=== PATIENT | female | born 1940 | race Caucasian/White ===

== ENCOUNTER 2020-07-19 04:22 | Outpatient (REF) | payer MEDICARE, SELFPAY ==
[2020-07-19 07:53] LABS: Hematocrit 36.1 % (37-47); Hemoglobin 11.7 g/dl (12.0-16.0); Mean Corpuscular HGB Conc 32.4 g/dl (31.0-35.0); Mean Corpuscular Hemoglobin 29.8 pg (27.0-33.0); Mean Corpuscular Volume 92.1 fL (80-98); Mean Platelet Volume 9.9 fL (9.4-12.3); Platelet Count 172 X10*3/uL (160-400); Red Blood Count 3.92 X10*6/uL (4.20-5.50); Red Cell Distribution Width 14.5 % (11.0-16.0); White Blood Count 4.8 X10*3/uL (4.8-10.8)
[2020-07-19 08:16] LABS: Anion Gap 10 (12-20); Blood Urea Nitrogen 19 mg/dL (9-16); Calcium 8.9 mg/dL (8.4-10.2); Carbon Dioxide 28 mmol/L (22-29); Chloride 107 mmol/L (96-108); Estimated Glomerular Filt Rate > 60; Glucose Random 72 mg/dL (60-115); Potassium 4.7 mmol/l (3.3-5.1); Sodium 140 mmol/L (135-145)
== END 2020-07-19 04:23 | disposition home or self-care (01) ==
LOC: HO.MMNH3L 04:22
PROVIDERS: Visit Provider Family Medicine
DX: A15.0 Tuberculosis of lung (principal); J96.01 Acute respiratory failure with hypoxia
CPT/HCPCS: 36415; 80048; 85027

== ENCOUNTER 2020-08-15 13:00 | Outpatient (REF) | payer MEDICARE, SELFPAY | END 2020-08-15 13:01 | LOC: HO.LNP 13:00 | PROVIDERS: Visit Provider Family Medicine | DX: Z20.828 Contact with and (suspected) exposure to other viral communicable diseases (principal) | CPT/HCPCS: U0003 ==

== ENCOUNTER 2020-09-18 07:29 | Outpatient (REF) | payer MEDICARE, SELFPAY ==
[2020-09-18 07:42] LABS: Hematocrit 36.4 % (37-47); Hemoglobin 12.1 g/dl (12.0-16.0); Mean Corpuscular HGB Conc 33.2 g/dl (31.0-35.0); Mean Corpuscular Hemoglobin 30.1 pg (27.0-33.0); Mean Corpuscular Volume 90.5 fL (80-98); Mean Platelet Volume 10.2 fL (9.4-12.3); Platelet Count 171 X10*3/uL (160-400); Red Blood Count 4.02 X10*6/uL (4.20-5.50); Red Cell Distribution Width 13.9 % (11.0-16.0); White Blood Count 4.7 X10*3/uL (4.8-10.8)
[2020-09-18 08:06] LABS: Anion Gap 12 (12-20); Blood Urea Nitrogen 19 mg/dL (9-16); Calcium 8.6 mg/dL (8.4-10.2); Carbon Dioxide 24 mmol/L (22-29); Chloride 106 mmol/L (96-108); Estimated Glomerular Filt Rate > 60; Glucose Random 76 mg/dL (60-115); Potassium 4.3 mmol/l (3.3-5.1); Sodium 138 mmol/L (135-145)
== END 2020-09-18 07:30 | disposition home or self-care (01) ==
LOC: HO.MMNH3L 07:29
PROVIDERS: Visit Provider Family Medicine
DX: J96.01 Acute respiratory failure with hypoxia (principal); N17.9 Acute kidney failure, unspecified
CPT/HCPCS: 36415; 80048; 85027

== ENCOUNTER 2020-10-19 | Outpatient (REF) | payer MEDICARE, MEDICAID, SELFPAY ==
[2020-10-19 08:13] LABS: Hematocrit 36.5 % (37-47); Hemoglobin 12.1 g/dl (12.0-16.0); Mean Corpuscular HGB Conc 33.2 g/dl (31.0-35.0); Mean Corpuscular Hemoglobin 30.3 pg (27.0-33.0); Mean Corpuscular Volume 91.3 fL (80-98); Mean Platelet Volume 10.1 fL (9.4-12.3); Platelet Count 175 X10*3/uL (160-400); Red Cell Distribution Width 14.2 % (11.0-16.0); White Blood Count 4.6 X10*3/uL (4.8-10.8)
[2020-10-19 08:34] LABS: Anion Gap 13 (12-20); Blood Urea Nitrogen 18 mg/dL (9-16); Calcium 8.8 mg/dL (8.4-10.2); Carbon Dioxide 24 mmol/L (22-29); Chloride 107 mmol/L (96-108); Estimated Glomerular Filt Rate > 60; Glucose Random 72 mg/dL (60-115); Potassium 4.4 mmol/l (3.3-5.1); Sodium 140 mmol/L (135-145)
== END 2020-10-19 00:01 ==
LOC: HO.MMNH3L
PROVIDERS: Visit Provider Family Medicine
DX: J96.01 Acute respiratory failure with hypoxia (principal); N17.9 Acute kidney failure, unspecified
CPT/HCPCS: 36415; 80048; 85027

== ENCOUNTER 2020-11-19 | Outpatient (REF) | payer MEDICARE, MEDICAID, SELFPAY ==
[2020-11-19 08:19] LABS: Hematocrit 36.2 % (37-47); Hemoglobin 11.9 g/dl (12.0-16.0); Mean Corpuscular HGB Conc 32.9 g/dl (31.0-35.0); Mean Corpuscular Hemoglobin 30.3 pg (27.0-33.0); Mean Corpuscular Volume 92.1 fL (80-98); Mean Platelet Volume 10.3 fL (9.4-12.3); Platelet Count 175 X10*3/uL (160-400); Red Blood Count 3.93 X10*6/uL (4.20-5.50); Red Cell Distribution Width 14.1 % (11.0-16.0); White Blood Count 4.6 X10*3/uL (4.8-10.8)
[2020-11-19 08:40] LABS: Anion Gap 11 (12-20); Blood Urea Nitrogen 18 mg/dL (9-16); Calcium 8.5 mg/dL (8.4-10.2); Carbon Dioxide 27 mmol/L (22-29); Chloride 106 mmol/L (96-108); Estimated Glomerular Filt Rate > 60; Glucose Random 68 mg/dL (60-115); Potassium 4.2 mmol/L (3.3-5.1); Sodium 140 mmol/L (135-145)
== END 2020-11-19 00:01 | disposition home or self-care (01) ==
LOC: HO.MMNH3L
PROVIDERS: Visit Provider Family Medicine
DX: J96.01 Acute respiratory failure with hypoxia (principal); H17.9 Unspecified corneal scar and opacity
CPT/HCPCS: 36415; 80048; 85027

== ENCOUNTER 2020-12-17 09:52 | Outpatient (REF) | payer MEDICARE, MEDICAID, SELFPAY ==
[2020-12-17 07:03] LABS: Hematocrit 36.8 % (37-47); Hemoglobin 12.3 g/dl (12.0-16.0); Mean Corpuscular HGB Conc 33.4 g/dl (31.0-35.0); Mean Corpuscular Hemoglobin 30.5 pg (27.0-33.0); Mean Corpuscular Volume 91.3 fL (80-98); Platelet Count 177 X10*3/uL (160-400); Red Blood Count 4.03 X10*6/uL (4.20-5.50); Red Cell Distribution Width 13.2 % (11.0-16.0); White Blood Count 4.3 X10*3/uL (4.8-10.8)
[2020-12-17 07:20] LABS: Blood Urea Nitrogen 18 mg/dL (9-16); Calcium 8.6 mg/dL (8.4-10.2); Estimated Glomerular Filt Rate > 60; Glucose Random 75 mg/dL (60-115)
[2020-12-17 07:54] LABS: Anion Gap 10 (12-20); Carbon Dioxide 27 mmol/L (22-29); Chloride 108 mmol/L (96-108); Potassium 4.6 mmol/L (3.3-5.1); Sodium 140 mmol/L (135-145)
== END 2020-12-17 09:53 ==
LOC: HO.MMNH3L 09:52
PROVIDERS: Visit Provider Family Medicine
DX: J96.01 Acute respiratory failure with hypoxia (principal); N17.9 Acute kidney failure, unspecified
CPT/HCPCS: 36415; 80048; 85027

== ENCOUNTER 2021-01-17 06:39 | Outpatient (REF) | payer MEDICARE, SELFPAY ==
[2021-01-17 07:23] LABS: Hemoglobin 12.7 g/dl (12.0-16.0); Mean Corpuscular HGB Conc 33.4 g/dl (31.0-35.0); Mean Corpuscular Hemoglobin 30.5 pg (27.0-33.0); Mean Corpuscular Volume 91.3 fL (80-98); Mean Platelet Volume 10.2 fL (9.4-12.3); Platelet Count 197 X10*3/uL (160-400); Red Blood Count 4.16 X10*6/uL (4.20-5.50); Red Cell Distribution Width 13.2 % (11.0-16.0)
[2021-01-17 07:29] LABS: Anion Gap 11 (12-20); Blood Urea Nitrogen 18 mg/dL (9-16); Calcium 8.7 mg/dL (8.4-10.2); Carbon Dioxide 25 mmol/L (22-29); Chloride 108 mmol/L (96-108); Estimated Glomerular Filt Rate > 60; Glucose Random 88 mg/dL (60-115); Potassium 4.2 mmol/L (3.3-5.1); Sodium 140 mmol/L (135-145)
== END 2021-01-17 06:40 | disposition home or self-care (01) ==
LOC: HO.MMNH3L 06:39
PROVIDERS: Visit Provider Family Medicine
DX: I10 Essential (primary) hypertension (principal)
CPT/HCPCS: 36415; 80048; 85027

== ENCOUNTER 2021-02-06 06:39 | Outpatient (REF) | payer MEDICARE, MEDICAID, SELFPAY ==
[2021-02-06 07:25] LABS: Cholesterol 230 mg/dL
== END 2021-02-06 06:40 | disposition home or self-care (01) ==
LOC: HO.MMNH3L 06:39
PROVIDERS: Visit Provider Family Medicine
DX: E03.9 Hypothyroidism, unspecified (principal); J18.9 Pneumonia, unspecified organism; R09.02 Hypoxemia
CPT/HCPCS: 36415; 82465

== ENCOUNTER 2021-02-16 11:05 | Outpatient (REF) | payer MEDICARE, SELFPAY ==
[2021-02-16 08:36] LABS: Hematocrit 37.6 % (37-47); Hemoglobin 12.4 g/dl (12.0-16.0); Mean Corpuscular Hemoglobin 30.2 pg (27.0-33.0); Mean Corpuscular Volume 91.7 fL (80-98); Mean Platelet Volume 10.2 fL (9.4-12.3); Platelet Count 188 X10*3/uL (160-400); Red Cell Distribution Width 13.3 % (11.0-16.0); White Blood Count 5.8 X10*3/uL (4.8-10.8)
[2021-02-16 09:09] LABS: Anion Gap 10 (12-20); Blood Urea Nitrogen 17 mg/dL (9-16); Calcium 8.8 mg/dL (8.4-10.2); Carbon Dioxide 28 mmol/L (22-29); Chloride 106 mmol/L (96-108); Estimated Glomerular Filt Rate > 60; Glucose Random 73 mg/dL (60-115); Sodium 140 mmol/L (135-145)
== END 2021-02-16 11:06 | disposition home or self-care (01) ==
LOC: HO.MMNH3L 11:05
PROVIDERS: Visit Provider Family Medicine
DX: A15.0 Tuberculosis of lung (principal)
CPT/HCPCS: 36415; 80048; 85027

== ENCOUNTER 2021-02-20 10:23 | Outpatient (REF) | payer MEDICARE, MEDICAID, SELFPAY ==
[2021-02-20 08:42] LABS: Free T4 (Free Thyroxine) 0.84 ng/dL (0.71-1.85); Thyroid Stimulating Hormone 0.47 uIU/mL (0.32-4.0)
== END 2021-02-20 10:24 | disposition home or self-care (01) ==
LOC: HO.MMNH3L 10:23
PROVIDERS: Visit Provider Family Medicine
DX: J44.9 Chronic obstructive pulmonary disease, unspecified (principal); E03.9 Hypothyroidism, unspecified; F33.9 Major depressive disorder, recurrent, unspecified
CPT/HCPCS: 36415; 84439; 84443

== ENCOUNTER 2021-03-19 05:00 | Outpatient (REF) | payer MEDICARE, MEDICAID, SELFPAY ==
[2021-03-19 07:44] LABS: Hematocrit 37.2 % (37-47); Hemoglobin 12.4 g/dl (12.0-16.0); Mean Corpuscular HGB Conc 33.3 g/dl (31.0-35.0); Mean Corpuscular Hemoglobin 30.3 pg (27.0-33.0); Mean Platelet Volume 10.2 fL (9.4-12.3); Platelet Count 175 X10*3/uL (160-400); Red Blood Count 4.09 X10*6/uL (4.20-5.50); Red Cell Distribution Width 14.1 % (11.0-16.0); White Blood Count 4.8 X10*3/uL (4.8-10.8)
[2021-03-19 08:13] LABS: Anion Gap 11 (12-20); Blood Urea Nitrogen 16 mg/dL (9-16); Calcium 8.5 mg/dL (8.4-10.2); Carbon Dioxide 24 mmol/L (22-29); Chloride 107 mmol/L (96-108); Estimated Glomerular Filt Rate > 60; Glucose Random 78 mg/dL (60-115); Potassium 4.2 mmol/L (3.3-5.1); Sodium 138 mmol/L (135-145)
== END 2021-03-19 05:01 | disposition home or self-care (01) ==
LOC: HO.MMNH3L 05:00
PROVIDERS: Visit Provider Family Medicine
DX: A15.0 Tuberculosis of lung (principal); J96.01 Acute respiratory failure with hypoxia
CPT/HCPCS: 36415; 80048; 85027

== ENCOUNTER 2021-04-18 07:21 | Outpatient (REF) | payer MEDICARE, MEDICAID, SELFPAY ==
[2021-04-18 07:42] LABS: Hematocrit 37.7 % (37-47); Hemoglobin 12.4 g/dl (12.0-16.0); Mean Corpuscular HGB Conc 32.9 g/dl (31.0-35.0); Mean Corpuscular Hemoglobin 30.2 pg (27.0-33.0); Mean Corpuscular Volume 91.7 fL (80-98); Platelet Count 186 X10*3/uL (160-400); Red Blood Count 4.11 X10*6/uL (4.20-5.50); Red Cell Distribution Width 14.1 % (11.0-16.0); White Blood Count 5.3 X10*3/uL (4.8-10.8)
[2021-04-18 08:09] LABS: Anion Gap 11 (12-20); Blood Urea Nitrogen 20 mg/dL (9-16); Carbon Dioxide 23 mmol/L (22-29); Chloride 109 mmol/L (96-108); Estimated Glomerular Filt Rate > 60; Glucose Random 81 mg/dL (60-115); Potassium 4.4 mmol/L (3.3-5.1); Sodium 139 mmol/L (135-145)
== END 2021-04-18 07:22 | disposition home or self-care (01) ==
LOC: HO.MMNH3L 07:21
PROVIDERS: Visit Provider Family Medicine
DX: A15.0 Tuberculosis of lung (principal); J96.01 Acute respiratory failure with hypoxia
CPT/HCPCS: 36415; 80048; 85027

== ENCOUNTER 2021-05-19 12:03 | Outpatient (REF) | payer MEDICARE, MEDICAID, SELFPAY ==
[2021-05-19 07:11] LABS: Hemoglobin 12.8 g/dl (12.0-16.0); Mean Corpuscular HGB Conc 32.8 g/dl (31.0-35.0); Mean Corpuscular Hemoglobin 29.9 pg (27.0-33.0); Mean Corpuscular Volume 91.1 fL (80-98); Platelet Count 200 X10*3/uL (160-400); Red Blood Count 4.28 X10*6/uL (4.20-5.50); Red Cell Distribution Width 13.4 % (11.0-16.0); White Blood Count 5.3 X10*3/uL (4.8-10.8)
[2021-05-19 07:34] LABS: Anion Gap 13 (12-20); Blood Urea Nitrogen 15 mg/dL (9-16); Calcium 8.8 mg/dL (8.4-10.2); Carbon Dioxide 22 mmol/L (22-29); Chloride 108 mmol/L (96-108); Estimated Glomerular Filt Rate > 60; Glucose Random 78 mg/dL (60-115); Potassium 4.2 mmol/L (3.3-5.1); Sodium 139 mmol/L (135-145)
== END 2021-05-19 12:04 | disposition home or self-care (01) ==
LOC: HO.MMNH3L 12:03
PROVIDERS: Visit Provider Family Medicine
DX: A15.0 Tuberculosis of lung (principal); J96.01 Acute respiratory failure with hypoxia
CPT/HCPCS: 36415; 80048; 85027

== ENCOUNTER 2021-06-20 05:00 | Outpatient (REF) | payer MEDICARE, MEDICAID, SELFPAY ==
[2021-06-20 07:18] LABS: Hematocrit 38.2 % (37-47); Hemoglobin 12.7 g/dl (12.0-16.0); Mean Corpuscular HGB Conc 33.2 g/dl (31.0-35.0); Mean Corpuscular Hemoglobin 30.2 pg (27.0-33.0); Mean Corpuscular Volume 90.7 fL (80-98); Mean Platelet Volume 10.3 fL (9.4-12.3); Platelet Count 192 X10*3/uL (160-400); Red Blood Count 4.21 X10*6/uL (4.20-5.50); Red Cell Distribution Width 13.4 % (11.0-16.0); White Blood Count 5.4 X10*3/uL (4.8-10.8)
[2021-06-20 08:08] LABS: Anion Gap 11 (12-20); Blood Urea Nitrogen 19 mg/dL (9-16); Calcium 8.6 mg/dL (8.4-10.2); Carbon Dioxide 24 mmol/L (22-29); Chloride 109 mmol/L (96-108); Estimated Glomerular Filt Rate > 60; Glucose Random 84 mg/dL (60-115); Potassium 4.1 mmol/L (3.3-5.1); Sodium 140 mmol/L (135-145)
== END 2021-06-20 05:01 ==
LOC: HO.MMNH3L 05:00
PROVIDERS: Visit Provider Family Medicine
DX: A15.0 Tuberculosis of lung (principal); J96.01 Acute respiratory failure with hypoxia
CPT/HCPCS: 36415; 80048; 85027

== ENCOUNTER 2021-07-19 07:21 | Outpatient (REF) | payer MEDICARE, MEDICAID, SELFPAY ==
[2021-07-19 07:50] LABS: Hematocrit 41.4 % (37-47); Hemoglobin 13.4 g/dl (12.0-16.0); Mean Corpuscular HGB Conc 32.4 g/dl (31.0-35.0); Mean Corpuscular Hemoglobin 29.8 pg (27.0-33.0); Mean Platelet Volume 10.5 fL (9.4-12.3); Platelet Count 188 X10*3/uL (160-400); Red Cell Distribution Width 13.9 % (11.0-16.0); White Blood Count 7.1 X10*3/uL (4.8-10.8)
[2021-07-19 08:24] LABS: Anion Gap 9 (12-20); Blood Urea Nitrogen 19 mg/dL (9-16); Carbon Dioxide 28 mmol/L (22-29); Chloride 108 mmol/L (96-108); Estimated Glomerular Filt Rate 52; Glucose Random 86 mg/dL (60-115); Potassium 4.7 mmol/L (3.3-5.1); Sodium 140 mmol/L (135-145)
== END 2021-07-19 07:22 | disposition home or self-care (01) ==
LOC: HO.MMNH3L 07:21
PROVIDERS: Visit Provider Family Medicine
DX: A15.0 Tuberculosis of lung (principal); J96.01 Acute respiratory failure with hypoxia
CPT/HCPCS: 36415; 80048; 85027

== ENCOUNTER 2021-08-18 | Outpatient (REF) | payer MEDICARE, SELFPAY ==
[2021-08-18 08:04] LABS: Hematocrit 39.9 % (37.0-47.0); Hemoglobin 13.2 g/dl (12.0-16.0); Mean Corpuscular HGB Conc 33.1 g/dl (31.0-35.0); Mean Corpuscular Hemoglobin 30.3 pg (27.0-33.0); Mean Corpuscular Volume 91.5 fL (80.0-98.0); Mean Platelet Volume 10.3 fL (9.4-12.3); Platelet Count 199 X10*3/uL (160-400); Red Blood Count 4.36 X10*6/uL (4.20-5.50); Red Cell Distribution Width 14.1 % (11.0-16.0); White Blood Count 5.7 X10*3/uL (4.8-10.8)
[2021-08-18 08:36] LABS: Anion Gap 10 (12-20); Blood Urea Nitrogen 19 mg/dL (9-16); Calcium 8.4 mg/dL (8.4-10.2); Carbon Dioxide 25 mmol/L (22-29); Chloride 108 mmol/L (96-108); Estimated Glomerular Filt Rate > 60; Glucose Random 80 mg/dL (60-115); Potassium 4.4 mmol/L (3.3-5.1); Sodium 139 mmol/L (135-145)
== END 2021-08-18 00:01 | disposition home or self-care (01) ==
LOC: HO.MMNH3L
PROVIDERS: Visit Provider Family Medicine
DX: A15.0 Tuberculosis of lung (principal); J96.01 Acute respiratory failure with hypoxia
CPT/HCPCS: 36415; 80048; 85027

== ENCOUNTER 2021-09-18 00:18 | Outpatient (REF) | payer MEDICARE, SELFPAY ==
[2021-09-18 08:00] LABS: Hematocrit 39.8 % (37.0-47.0); Mean Corpuscular HGB Conc 32.7 g/dl (31.0-35.0); Mean Corpuscular Hemoglobin 30.3 pg (27.0-33.0); Mean Corpuscular Volume 92.8 fL (80.0-98.0); Mean Platelet Volume 10.3 fL (9.4-12.3); Platelet Count 179 X10*3/uL (160-400); Red Blood Count 4.29 X10*6/uL (4.20-5.50); Red Cell Distribution Width 14.1 % (11.0-16.0); White Blood Count 4.9 X10*3/uL (4.8-10.8)
[2021-09-18 08:15] LABS: Anion Gap 11 (12-20); Blood Urea Nitrogen 18 mg/dL (9-16); Calcium 8.8 mg/dL (8.4-10.2); Carbon Dioxide 22 mmol/L (22-29); Chloride 112 mmol/L (96-108); Estimated Glomerular Filt Rate > 60; Glucose Random 73 mg/dL (60-115); Potassium 4.1 mmol/L (3.3-5.1); Sodium 141 mmol/L (135-145)
== END 2021-09-18 00:19 | disposition home or self-care (01) ==
LOC: HO.MMNH3L 00:18
PROVIDERS: Visit Provider Family Medicine
DX: A15.0 Tuberculosis of lung (principal); J96.01 Acute respiratory failure with hypoxia
CPT/HCPCS: 36415; 80048; 85027

== ENCOUNTER 2021-10-19 00:24 | Outpatient (REF) | payer MEDICARE, SELFPAY ==
[2021-10-19 07:27] LABS: Hematocrit 39.6 % (37.0-47.0); Mean Corpuscular HGB Conc 32.8 g/dl (31.0-35.0); Mean Corpuscular Hemoglobin 30.4 pg (27.0-33.0); Mean Corpuscular Volume 92.5 fL (80.0-98.0); Mean Platelet Volume 10.3 fL (9.4-12.3); Platelet Count 189 X10*3/uL (160-400); Red Blood Count 4.28 X10*6/uL (4.20-5.50); Red Cell Distribution Width 13.6 % (11.0-16.0); White Blood Count 5.7 X10*3/uL (4.8-10.8)
[2021-10-19 07:54] LABS: Anion Gap 9 (12-20); Blood Urea Nitrogen 17 mg/dL (9-16); Calcium 8.8 mg/dL (8.4-10.2); Carbon Dioxide 27 mmol/L (22-29); Chloride 109 mmol/L (96-108); Estimated Glomerular Filt Rate 53; Glucose Random 87 mg/dL (60-115); Potassium 4.3 mmol/L (3.3-5.1); Sodium 141 mmol/L (135-145)
== END 2021-10-19 00:25 | disposition home or self-care (01) ==
LOC: HO.MMNH3L 00:24
PROVIDERS: Visit Provider Family Medicine
DX: A15.0 Tuberculosis of lung (principal); J96.01 Acute respiratory failure with hypoxia
CPT/HCPCS: 36415; 80048; 85027

== ENCOUNTER 2021-11-20 | Outpatient (REF) | payer MEDICARE, MEDICAID, SELFPAY ==
[2021-11-20 07:32] LABS: Hematocrit 42.1 % (37.0-47.0); Hemoglobin 13.9 g/dl (12.0-16.0); Mean Corpuscular Hemoglobin 30.5 pg (27.0-33.0); Mean Corpuscular Volume 92.5 fL (80.0-98.0); Mean Platelet Volume 10.2 fL (9.4-12.3); Platelet Count 193 X10*3/uL (160-400); Red Blood Count 4.55 X10*6/uL (4.20-5.50); Red Cell Distribution Width 13.3 % (11.0-16.0)
[2021-11-20 08:29] LABS: Anion Gap 12 (12-20); Blood Urea Nitrogen 17 mg/dL (9-16); Calcium 8.8 mg/dL (8.4-10.2); Carbon Dioxide 23 mmol/L (22-29); Chloride 110 mmol/L (96-108); Estimated Glomerular Filt Rate > 60; Glucose Random 76 mg/dL (60-115); Potassium 4.5 mmol/L (3.3-5.1); Sodium 140 mmol/L (135-145)
== END 2021-11-20 00:01 | disposition home or self-care (01) ==
LOC: HO.MMNH3L
PROVIDERS: Visit Provider Family Medicine
DX: A15.0 Tuberculosis of lung (principal); J96.01 Acute respiratory failure with hypoxia
CPT/HCPCS: 36415; 80048; 85027

== ENCOUNTER 2021-12-19 | Outpatient (REF) | payer MEDICARE, SELFPAY ==
[2021-12-19 06:08] LABS: MANUAL DIFF FLAG NO
[2021-12-19 06:12] LABS: Basophils Percent Auto 0.6 % (0-2); Eosinophils Absolute Auto 0.1 X10*3/uL (0.0-0.4); Eosinophils Percent Auto 2.7 % (0-4); Hematocrit 40.7 % (37.0-47.0); Hemoglobin 13.6 g/dl (12.0-16.0); Imm Gran Abs Auto 0.01 X10*3/uL (0.00-0.03); Imm Gran Pct Auto 0.2 % (0.0-0.4); Lymphocytes Absolute Auto 1.7 X10*3/uL (1.2-4.9); Lymphocytes Percent Auto 33.1 % (20-40); Mean Corpuscular HGB Conc 33.4 g/dl (31.0-35.0); Mean Corpuscular Hemoglobin 30.6 pg (27.0-33.0); Mean Corpuscular Volume 91.7 fL (80.0-98.0); Mean Platelet Volume 10.3 fL (9.4-12.3); Monocytes Absolute Auto 0.4 X10*3/uL (0.1-1.2); Monocytes Percent Auto 7.6 % (2-11); Neutrophils Absolute Auto 2.9 x10*3/uL (2.0-8.3); Neutrophils Percent Auto 55.8 % (45-73); Platelet Count 192 X10*3/uL (160-400); Red Blood Count 4.44 X10*6/uL (4.20-5.50); Red Cell Distribution Width 13.7 % (11.0-16.0); White Blood Count 5.1 X10*3/uL (4.8-10.8)
[2021-12-19 06:24] LABS: Anion Gap 11 (12-20); Blood Urea Nitrogen 15 mg/dL (9-16); Calcium 8.8 mg/dL (8.4-10.2); Carbon Dioxide 24 mmol/L (22-29); Chloride 108 mmol/L (96-108); Estimated Glomerular Filt Rate > 60; Glucose Random 84 mg/dL (60-115); Potassium 4.4 mmol/L (3.3-5.1); Sodium 139 mmol/L (135-145)
== END 2021-12-19 00:01 ==
LOC: HO.MMNH3L
PROVIDERS: Visit Provider Family Medicine
DX: A15.0 Tuberculosis of lung (principal); J96.01 Acute respiratory failure with hypoxia
CPT/HCPCS: 36415; 80048; 85025

== ENCOUNTER 2022-01-18 | Outpatient (REF) | payer MEDICARE, SELFPAY ==
[2022-01-18 07:39] LABS: MANUAL DIFF FLAG NO
[2022-01-18 07:47] LABS: Basophils Percent Auto 0.6 % (0-2); Eosinophils Absolute Auto 0.2 X10*3/uL (0.0-0.4); Eosinophils Percent Auto 2.7 % (0-4); Hematocrit 41.3 % (37.0-47.0); Hemoglobin 13.5 g/dl (12.0-16.0); Imm Gran Abs Auto 0.03 X10*3/uL (0.00-0.03); Imm Gran Pct Auto 0.5 % (0.0-0.4); Lymphocytes Absolute Auto 1.6 X10*3/uL (1.2-4.9); Lymphocytes Percent Auto 25.8 % (20-40); Mean Corpuscular HGB Conc 32.7 g/dl (31.0-35.0); Mean Corpuscular Hemoglobin 30.4 pg (27.0-33.0); Mean Platelet Volume 10.4 fL (9.4-12.3); Monocytes Absolute Auto 0.5 X10*3/uL (0.1-1.2); Monocytes Percent Auto 8.4 % (2-11); Neutrophils Absolute Auto 3.8 x10*3/uL (2.0-8.3); Platelet Count 176 X10*3/uL (160-400); Red Blood Count 4.44 X10*6/uL (4.20-5.50); White Blood Count 6.2 X10*3/uL (4.8-10.8)
[2022-01-18 08:12] LABS: Anion Gap 10 (12-20); Blood Urea Nitrogen 17 mg/dL (9-16); Carbon Dioxide 27 mmol/L (22-29); Chloride 108 mmol/L (96-108); Estimated Glomerular Filt Rate > 60; Glucose Random 81 mg/dL (60-115); Potassium 4.6 mmol/L (3.3-5.1); Sodium 140 mmol/L (135-145)
== END 2022-01-18 00:01 | disposition home or self-care (01) ==
LOC: HO.MMNH3L
PROVIDERS: Visit Provider Family Medicine
DX: A15.0 Tuberculosis of lung (principal); J96.01 Acute respiratory failure with hypoxia
CPT/HCPCS: 36415; 80048; 85025

== ENCOUNTER 2022-04-19 | Outpatient (REF) | payer MEDICARE, MEDICAID, SELFPAY ==
[2022-04-19 05:26] LABS: MANUAL DIFF FLAG NO
[2022-04-19 05:30] LABS: Basophils Absolute Auto 0.1 X10*3/uL (0.0-0.2); Eosinophils Absolute Auto 0.2 X10*3/uL (0.0-0.4); Eosinophils Percent Auto 2.6 % (0-4); Hematocrit 41.3 % (37.0-47.0); Imm Gran Abs Auto 0.02 X10*3/uL (0.00-0.03); Imm Gran Pct Auto 0.3 % (0.0-0.4); Lymphocytes Absolute Auto 1.9 X10*3/uL (1.2-4.9); Lymphocytes Percent Auto 32.2 % (20-40); Mean Corpuscular HGB Conc 33.9 g/dl (31.0-35.0); Mean Corpuscular Hemoglobin 31.1 pg (27.0-33.0); Mean Corpuscular Volume 91.8 fL (80.0-98.0); Mean Platelet Volume 10.4 fL (9.4-12.3); Monocytes Absolute Auto 0.5 X10*3/uL (0.1-1.2); Monocytes Percent Auto 8.9 % (2-11); Neutrophils Absolute Auto 3.2 x10*3/uL (2.0-8.3); Platelet Count 194 X10*3/uL (160-400); Red Cell Distribution Width 13.5 % (11.0-16.0); White Blood Count 5.8 X10*3/uL (4.8-10.8)
[2022-04-19 05:59] LABS: Anion Gap 9 (12-20); Blood Urea Nitrogen 18 mg/dL (9-16); Calcium 8.6 mg/dL (8.4-10.2); Carbon Dioxide 24 mmol/L (22-29); Chloride 110 mmol/L (96-108); Estimated Glomerular Filt Rate > 60; Glucose Random 93 mg/dL (60-115); Potassium 4.1 mmol/L (3.3-5.1); Sodium 139 mmol/L (135-145)
== END 2022-04-19 00:01 | disposition home or self-care (01) ==
LOC: HO.MMNH3L
PROVIDERS: Visit Provider Family Medicine
DX: A15.0 Tuberculosis of lung (principal); J96.01 Acute respiratory failure with hypoxia
CPT/HCPCS: 36415; 80048; 85025

== ENCOUNTER 2022-05-14 06:44 | Outpatient (REF) | payer MEDICARE, SELFPAY ==
[2022-05-14 06:31] LABS: MANUAL DIFF FLAG NO
[2022-05-14 06:56] LABS: Basophils Percent Auto 0.6 % (0-2); Eosinophils Absolute Auto 0.2 X10*3/uL (0.0-0.4); Hematocrit 40.2 % (37.0-47.0); Hemoglobin 13.4 g/dl (12.0-16.0); Imm Gran Abs Auto 0.02 X10*3/uL (0.00-0.03); Imm Gran Pct Auto 0.4 % (0.0-0.4); Lymphocytes Absolute Auto 1.8 X10*3/uL (1.2-4.9); Lymphocytes Percent Auto 35.5 % (20-40); Mean Corpuscular HGB Conc 33.3 g/dl (31.0-35.0); Mean Corpuscular Hemoglobin 30.6 pg (27.0-33.0); Mean Corpuscular Volume 91.8 fL (80.0-98.0); Mean Platelet Volume 10.3 fL (9.4-12.3); Monocytes Absolute Auto 0.5 X10*3/uL (0.1-1.2); Monocytes Percent Auto 9.4 % (2-11); Neutrophils Absolute Auto 2.5 x10*3/uL (2.0-8.3); Neutrophils Percent Auto 51.1 % (45-73); Platelet Count 192 X10*3/uL (160-400); Red Blood Count 4.38 X10*6/uL (4.20-5.50); Red Cell Distribution Width 13.6 % (11.0-16.0)
[2022-05-14 07:21] LABS: Anion Gap 12 (12-20); Blood Urea Nitrogen 16 mg/dL (9-16); Calcium 8.4 mg/dL (8.4-10.2); Carbon Dioxide 23 mmol/L (22-29); Chloride 108 mmol/L (96-108); Estimated Glomerular Filt Rate > 60; Glucose Random 80 mg/dL (60-115); Potassium 4.1 mmol/L (3.3-5.1); Sodium 139 mmol/L (135-145)
== END 2022-05-14 06:45 | disposition home or self-care (01) ==
LOC: HO.MMNH3L 06:44
PROVIDERS: Visit Provider Family Medicine
DX: A15.0 Tuberculosis of lung (principal); J96.01 Acute respiratory failure with hypoxia
CPT/HCPCS: 36415; 80048; 85025

== ENCOUNTER 2022-06-19 06:19 | Outpatient (REF) | payer MEDICARE, MEDICAID, SELFPAY ==
[2022-06-19 06:26] LABS: MANUAL DIFF FLAG NO
[2022-06-19 07:03] LABS: Basophils Absolute Auto 0.1 X10*3/uL (0.0-0.2); Eosinophils Absolute Auto 0.1 X10*3/uL (0.0-0.4); Eosinophils Percent Auto 2.2 % (0-4); Hematocrit 40.1 % (37.0-47.0); Hemoglobin 13.5 g/dl (12.0-16.0); Imm Gran Abs Auto 0.02 X10*3/uL (0.00-0.03); Imm Gran Pct Auto 0.4 % (0.0-0.4); Lymphocytes Absolute Auto 1.5 X10*3/uL (1.2-4.9); Lymphocytes Percent Auto 29.4 % (20-40); Mean Corpuscular HGB Conc 33.7 g/dl (31.0-35.0); Mean Corpuscular Hemoglobin 30.8 pg (27.0-33.0); Mean Corpuscular Volume 91.3 fL (80.0-98.0); Mean Platelet Volume 10.2 fL (9.4-12.3); Monocytes Absolute Auto 0.4 X10*3/uL (0.1-1.2); Platelet Count 187 X10*3/uL (160-400); Red Blood Count 4.39 X10*6/uL (4.20-5.50); Red Cell Distribution Width 13.5 % (11.0-16.0)
[2022-06-19 07:52] LABS: Anion Gap 13 (12-20); Blood Urea Nitrogen 18 mg/dL (9-16); Calcium 8.6 mg/dL (8.4-10.2); Carbon Dioxide 24 mmol/L (22-29); Chloride 106 mmol/L (96-108); Estimated Glomerular Filt Rate > 60; Glucose Random 76 mg/dL (60-115); Potassium 4.3 mmol/L (3.3-5.1); Sodium 139 mmol/L (135-145)
== END 2022-06-19 06:20 | disposition home or self-care (01) ==
LOC: HO.MMNH3L 06:19
PROVIDERS: Visit Provider Family Medicine
DX: A15.0 Tuberculosis of lung (principal); J96.01 Acute respiratory failure with hypoxia
CPT/HCPCS: 36415; 80048; 85025

== ENCOUNTER 2022-07-16 07:26 | Outpatient (REF) | payer MEDICARE, SELFPAY ==
[2022-07-16 07:28] LABS: MANUAL DIFF FLAG NO
[2022-07-16 07:33] LABS: Basophils Absolute Auto 0.1 X10*3/uL (0.0-0.2); Eosinophils Absolute Auto 0.1 X10*3/uL (0.0-0.4); Eosinophils Percent Auto 2.8 % (0-4); Hematocrit 42.3 % (37.0-47.0); Hemoglobin 14.1 g/dl (12.0-16.0); Imm Gran Abs Auto 0.03 X10*3/uL (0.00-0.03); Imm Gran Pct Auto 0.6 % (0.0-0.4); Lymphocytes Absolute Auto 1.6 X10*3/uL (1.2-4.9); Lymphocytes Percent Auto 30.5 % (20-40); Mean Corpuscular HGB Conc 33.3 g/dl (31.0-35.0); Mean Corpuscular Hemoglobin 30.9 pg (27.0-33.0); Mean Corpuscular Volume 92.6 fL (80.0-98.0); Mean Platelet Volume 10.4 fL (9.4-12.3); Monocytes Absolute Auto 0.5 X10*3/uL (0.1-1.2); Monocytes Percent Auto 9.8 % (2-11); Neutrophils Absolute Auto 2.8 x10*3/uL (2.0-8.3); Neutrophils Percent Auto 55.3 % (45-73); Platelet Count 192 X10*3/uL (160-400); Red Blood Count 4.57 X10*6/uL (4.20-5.50); Red Cell Distribution Width 13.6 % (11.0-16.0); White Blood Count 5.1 X10*3/uL (4.8-10.8)
[2022-07-16 08:14] LABS: Anion Gap 14 (12-20); Blood Urea Nitrogen 17 mg/dL (9-16); Calcium 8.8 mg/dL (8.4-10.2); Carbon Dioxide 25 mmol/L (22-29); Chloride 107 mmol/L (96-108); Estimated Glomerular Filt Rate > 60; Glucose Random 79 mg/dL (60-115); Potassium 4.8 mmol/L (3.3-5.1); Sodium 141 mmol/L (135-145)
== END 2022-07-16 07:27 | disposition home or self-care (01) ==
LOC: HO.MMNH3L 07:26
PROVIDERS: Visit Provider Family Medicine
DX: A15.0 Tuberculosis of lung (principal); J96.01 Acute respiratory failure with hypoxia
CPT/HCPCS: 36415; 80048; 85025

== ENCOUNTER 2022-08-13 06:14 | Outpatient (REF) | payer MEDICARE, SELFPAY ==
[2022-08-13 06:57] LABS: Hematocrit 40.7 % (37.0-47.0); Hemoglobin 13.7 g/dl (12.0-16.0); Mean Corpuscular HGB Conc 33.7 g/dl (31.0-35.0); Mean Corpuscular Volume 92.1 fL (80.0-98.0); Mean Platelet Volume 10.4 fL (9.4-12.3); Platelet Count 187 X10*3/uL (160-400); Red Blood Count 4.42 X10*6/uL (4.20-5.50); Red Cell Distribution Width 13.2 % (11.0-16.0); White Blood Count 5.5 X10*3/uL (4.8-10.8)
[2022-08-13 07:15] LABS: Anion Gap 14 (12-20); Blood Urea Nitrogen 20 mg/dL (9-16); Calcium 8.6 mg/dL (8.4-10.2); Carbon Dioxide 23 mmol/L (22-29); Chloride 108 mmol/L (96-108); Estimated Glomerular Filt Rate > 60; Glucose Random 89 mg/dL (60-115); Sodium 141 mmol/L (135-145)
== END 2022-08-13 06:15 | disposition home or self-care (01) ==
LOC: HO.MMNH3L 06:14
PROVIDERS: Visit Provider Family Medicine
DX: A15.0 Tuberculosis of lung (principal); J96.01 Acute respiratory failure with hypoxia
CPT/HCPCS: 36415; 80048; 85027

== ENCOUNTER 2022-09-17 07:25 | Outpatient (REF) | payer MEDICARE, MEDICAID, SELFPAY ==
[2022-09-17 07:04] LABS: MANUAL DIFF FLAG NO
[2022-09-17 07:44] LABS: Basophils Absolute Auto 0.1 X10*3/uL (0.0-0.2); Eosinophils Absolute Auto 0.2 X10*3/uL (0.0-0.4); Eosinophils Percent Auto 3.2 % (0-4); Hematocrit 41.2 % (37.0-47.0); Hemoglobin 13.7 g/dl (12.0-16.0); Imm Gran Abs Auto 0.01 X10*3/uL (0.00-0.03); Imm Gran Pct Auto 0.2 % (0.0-0.4); Lymphocytes Absolute Auto 1.8 X10*3/uL (1.2-4.9); Lymphocytes Percent Auto 35.9 % (20-40); Mean Corpuscular HGB Conc 33.3 g/dl (31.0-35.0); Mean Corpuscular Hemoglobin 30.6 pg (27.0-33.0); Mean Platelet Volume 10.3 fL (9.4-12.3); Monocytes Absolute Auto 0.5 X10*3/uL (0.1-1.2); Monocytes Percent Auto 10.9 % (2-11); Neutrophils Absolute Auto 2.4 x10*3/uL (2.0-8.3); Neutrophils Percent Auto 48.8 % (45-73); Platelet Count 177 X10*3/uL (160-400); Red Blood Count 4.48 X10*6/uL (4.20-5.50); Red Cell Distribution Width 13.4 % (11.0-16.0)
[2022-09-17 08:17] LABS: Anion Gap 12 (12-20); Blood Urea Nitrogen 20 mg/dL (9-16); Calcium 8.4 mg/dL (8.4-10.2); Carbon Dioxide 24 mmol/L (22-29); Chloride 110 mmol/L (96-108); Estimated Glomerular Filt Rate 59; Glucose Random 78 mg/dL (60-115); Potassium 4.5 mmol/L (3.3-5.1); Sodium 141 mmol/L (135-145)
== END 2022-09-17 07:26 | disposition home or self-care (01) ==
LOC: HO.MMNH3L 07:25
PROVIDERS: Visit Provider Family Medicine
DX: A15.0 Tuberculosis of lung (principal); J96.01 Acute respiratory failure with hypoxia
CPT/HCPCS: 36415; 80048; 85025

== ENCOUNTER 2022-10-15 06:26 | Outpatient (REF) | payer MEDICARE, MEDICAID, SELFPAY ==
[2022-10-15 06:23] LABS: MANUAL DIFF FLAG NO
[2022-10-15 06:37] LABS: Basophils Absolute Auto 0.1 X10*3/uL (0.0-0.2); Basophils Percent Auto 1.3 % (0-2); Eosinophils Absolute Auto 0.1 X10*3/uL (0.0-0.4); Hematocrit 39.6 % (37.0-47.0); Hemoglobin 13.3 g/dl (12.0-16.0); Imm Gran Abs Auto 0.02 X10*3/uL (0.00-0.03); Imm Gran Pct Auto 0.4 % (0.0-0.4); Lymphocytes Percent Auto 42.1 % (20-40); Mean Corpuscular HGB Conc 33.6 g/dl (31.0-35.0); Mean Corpuscular Hemoglobin 30.6 pg (27.0-33.0); Mean Corpuscular Volume 91.2 fL (80.0-98.0); Mean Platelet Volume 10.2 fL (9.4-12.3); Monocytes Absolute Auto 0.4 X10*3/uL (0.1-1.2); Neutrophils Absolute Auto 2.1 x10*3/uL (2.0-8.3); Neutrophils Percent Auto 44.2 % (45-73); Platelet Count 194 X10*3/uL (160-400); Red Blood Count 4.34 X10*6/uL (4.20-5.50); Red Cell Distribution Width 13.4 % (11.0-16.0); White Blood Count 4.7 X10*3/uL (4.8-10.8)
[2022-10-15 07:17] LABS: Anion Gap 9 (12-20); Blood Urea Nitrogen 18 mg/dL (9-16); Calcium 8.6 mg/dL (8.4-10.2); Carbon Dioxide 25 mmol/L (22-29); Chloride 110 mmol/L (96-108); Estimated Glomerular Filt Rate > 60; Glucose Random 86 mg/dL (60-115); Potassium 4.3 mmol/L (3.3-5.1); Sodium 140 mmol/L (135-145)
== END 2022-10-15 06:27 | disposition home or self-care (01) ==
LOC: HO.MMNH3L 06:26
PROVIDERS: Visit Provider Family Medicine
DX: A15.0 Tuberculosis of lung (principal); J96.01 Acute respiratory failure with hypoxia
CPT/HCPCS: 36415; 80048; 85025

== ENCOUNTER 2022-11-19 07:18 | Outpatient (REF) | payer MEDICARE, MEDICAID, SELFPAY ==
[2022-11-19 06:36] LABS: MANUAL DIFF FLAG NO
[2022-11-19 07:04] LABS: Basophils Percent Auto 0.8 % (0-2); Eosinophils Absolute Auto 0.2 X10*3/uL (0.0-0.4); Eosinophils Percent Auto 3.5 % (0-4); Hematocrit 40.7 % (37.0-47.0); Hemoglobin 13.4 g/dl (12.0-16.0); Imm Gran Abs Auto 0.01 X10*3/uL (0.00-0.03); Imm Gran Pct Auto 0.2 % (0.0-0.4); Lymphocytes Absolute Auto 1.6 X10*3/uL (1.2-4.9); Lymphocytes Percent Auto 32.3 % (20-40); Mean Corpuscular HGB Conc 32.9 g/dl (31.0-35.0); Mean Corpuscular Hemoglobin 29.9 pg (27.0-33.0); Mean Corpuscular Volume 90.8 fL (80.0-98.0); Mean Platelet Volume 10.4 fL (9.4-12.3); Monocytes Absolute Auto 0.5 X10*3/uL (0.1-1.2); Monocytes Percent Auto 9.1 % (2-11); Neutrophils Absolute Auto 2.7 x10*3/uL (2.0-8.3); Neutrophils Percent Auto 54.1 % (45-73); Platelet Count 174 X10*3/uL (160-400); Red Blood Count 4.48 X10*6/uL (4.20-5.50); Red Cell Distribution Width 13.6 % (11.0-16.0); White Blood Count 4.9 X10*3/uL (4.8-10.8)
[2022-11-19 07:29] LABS: Anion Gap 11 (12-20); Blood Urea Nitrogen 19 mg/dL (9-16); Calcium 9.3 mg/dL (8.4-10.2); Carbon Dioxide 25 mmol/L (22-29); Chloride 109 mmol/L (96-108); Estimated Glomerular Filt Rate > 60; Glucose Random 99 mg/dL (60-115); Potassium 3.8 mmol/L (3.3-5.1); Sodium 141 mmol/L (135-145)
== END 2022-11-19 07:19 | disposition home or self-care (01) ==
LOC: HO.MMNH3L 07:18
PROVIDERS: Visit Provider Family Medicine
DX: A15.0 Tuberculosis of lung (principal); J96.01 Acute respiratory failure with hypoxia
CPT/HCPCS: 36415; 80048; 85025

== ENCOUNTER 2022-12-17 06:44 | Outpatient (REF) | payer MEDICARE, MEDICAID, SELFPAY ==
[2022-12-17 06:27] LABS: MANUAL DIFF FLAG NO
[2022-12-17 07:05] LABS: Basophils Percent Auto 0.6 % (0-2); Eosinophils Absolute Auto 0.2 X10*3/uL (0.0-0.4); Hematocrit 39.4 % (37.0-47.0); Hemoglobin 13.1 g/dl (12.0-16.0); Imm Gran Abs Auto 0.01 X10*3/uL (0.00-0.03); Imm Gran Pct Auto 0.2 % (0.0-0.4); Lymphocytes Absolute Auto 1.6 X10*3/uL (1.2-4.9); Lymphocytes Percent Auto 31.2 % (20-40); Mean Corpuscular HGB Conc 33.2 g/dl (31.0-35.0); Mean Corpuscular Hemoglobin 30.2 pg (27.0-33.0); Mean Corpuscular Volume 90.8 fL (80.0-98.0); Mean Platelet Volume 10.4 fL (9.4-12.3); Monocytes Absolute Auto 0.5 X10*3/uL (0.1-1.2); Monocytes Percent Auto 10.5 % (2-11); Neutrophils Absolute Auto 2.7 x10*3/uL (2.0-8.3); Neutrophils Percent Auto 54.5 % (45-73); Platelet Count 188 X10*3/uL (160-400); Red Blood Count 4.34 X10*6/uL (4.20-5.50)
[2022-12-17 07:21] LABS: Anion Gap 9 (12-20); Blood Urea Nitrogen 16 mg/dL (9-16); Calcium 8.3 mg/dL (8.4-10.2); Carbon Dioxide 25 mmol/L (22-29); Chloride 111 mmol/L (96-108); Estimated Glomerular Filt Rate > 60; Glucose Random 74 mg/dL (60-115); Potassium 3.9 mmol/L (3.3-5.1); Sodium 141 mmol/L (135-145)
== END 2022-12-17 06:45 | disposition home or self-care (01) ==
LOC: HO.MMNH3L 06:44
PROVIDERS: Visit Provider Family Medicine
DX: A15.0 Tuberculosis of lung (principal); J96.01 Acute respiratory failure with hypoxia
CPT/HCPCS: 36415; 80048; 85025

== ENCOUNTER 2023-01-14 06:10 | Outpatient (REF) | payer MEDICARE, MEDICAID, SELFPAY ==
[2023-01-14 06:11] LABS: MANUAL DIFF FLAG NO
[2023-01-14 07:00] LABS: Basophils Percent Auto 0.8 % (0-2); Eosinophils Absolute Auto 0.1 X10*3/uL (0.0-0.4); Eosinophils Percent Auto 2.3 % (0-4); Hemoglobin 13.1 g/dl (12.0-16.0); Imm Gran Abs Auto 0.02 X10*3/uL (0.00-0.03); Imm Gran Pct Auto 0.4 % (0.0-0.4); Lymphocytes Absolute Auto 1.7 X10*3/uL (1.2-4.9); Lymphocytes Percent Auto 32.6 % (20-40); Mean Corpuscular HGB Conc 32.8 g/dl (31.0-35.0); Mean Corpuscular Hemoglobin 30.7 pg (27.0-33.0); Mean Corpuscular Volume 93.7 fL (80.0-98.0); Mean Platelet Volume 10.1 fL (9.4-12.3); Monocytes Absolute Auto 0.4 X10*3/uL (0.1-1.2); Neutrophils Percent Auto 55.9 % (45-73); Platelet Count 185 X10*3/uL (160-400); Red Blood Count 4.27 X10*6/uL (4.20-5.50); Red Cell Distribution Width 14.3 % (11.0-16.0); White Blood Count 5.3 X10*3/uL (4.8-10.8)
[2023-01-14 07:38] LABS: Anion Gap 12 (12-20); Blood Urea Nitrogen 18 mg/dL (9-16); Calcium 8.5 mg/dL (8.4-10.2); Carbon Dioxide 24 mmol/L (22-29); Chloride 109 mmol/L (96-108); Estimated Glomerular Filt Rate 59; Glucose Random 80 mg/dL (60-115); Potassium 4.5 mmol/L (3.3-5.1); Sodium 140 mmol/L (135-145)
== END 2023-01-14 06:11 | disposition home or self-care (01) ==
LOC: HO.MMNH3L 06:10
PROVIDERS: Visit Provider Family Medicine
DX: J96.01 Acute respiratory failure with hypoxia (principal); A15.0 Tuberculosis of lung
CPT/HCPCS: 36415; 80048; 85025

== ENCOUNTER 2023-02-11 05:59 | Outpatient (REF) | payer MEDICARE, MEDICAID, SELFPAY ==
[2023-02-11 05:58] LABS: MANUAL DIFF FLAG NO
[2023-02-11 06:47] LABS: Anion Gap 8 (12-20); Blood Urea Nitrogen 14 mg/dL (9-16); Calcium 8.5 mg/dL (8.4-10.2); Carbon Dioxide 26 mmol/L (22-29); Chloride 111 mmol/L (96-108); Estimated Glomerular Filt Rate > 60; Glucose Random 91 mg/dL (60-115); Potassium 4.3 mmol/L (3.3-5.1); Sodium 141 mmol/L (135-145)
[2023-02-11 06:54] LABS: Basophils Percent Auto 0.7 % (0-2); Eosinophils Absolute Auto 0.1 X10*3/uL (0.0-0.4); Eosinophils Percent Auto 1.9 % (0-4); Hematocrit 38.4 % (37.0-47.0); Hemoglobin 12.7 g/dl (12.0-16.0); Imm Gran Abs Auto 0.02 X10*3/uL (0.00-0.03); Imm Gran Pct Auto 0.3 % (0.0-0.4); Lymphocytes Absolute Auto 1.3 X10*3/uL (1.2-4.9); Lymphocytes Percent Auto 22.5 % (20-40); Mean Corpuscular HGB Conc 33.1 g/dl (31.0-35.0); Mean Corpuscular Hemoglobin 30.7 pg (27.0-33.0); Mean Corpuscular Volume 92.8 fL (80.0-98.0); Mean Platelet Volume 10.3 fL (9.4-12.3); Monocytes Absolute Auto 0.5 X10*3/uL (0.1-1.2); Monocytes Percent Auto 7.8 % (2-11); Neutrophils Absolute Auto 3.9 x10*3/uL (2.0-8.3); Neutrophils Percent Auto 66.8 % (45-73); Platelet Count 238 X10*3/uL (160-400); Red Blood Count 4.14 X10*6/uL (4.20-5.50); Red Cell Distribution Width 14.1 % (11.0-16.0); White Blood Count 5.9 X10*3/uL (4.8-10.8)
== END 2023-02-11 06:00 | disposition home or self-care (01) ==
LOC: HO.MMNH3L 05:59
PROVIDERS: Visit Provider Family Medicine
DX: A15.0 Tuberculosis of lung (principal); J96.01 Acute respiratory failure with hypoxia
CPT/HCPCS: 36415; 80048; 85025

== ENCOUNTER 2023-03-18 06:05 | Outpatient (REF) | payer MEDICARE, MEDICAID, SELFPAY ==
[2023-03-18 06:02] LABS: MANUAL DIFF FLAG NO
[2023-03-18 06:50] LABS: Anion Gap 11 (12-20); Blood Urea Nitrogen 17 mg/dL (9-16); Carbon Dioxide 26 mmol/L (22-29); Chloride 110 mmol/L (96-108); Estimated Glomerular Filt Rate > 60; Glucose Random 83 mg/dL (60-115); Potassium 4.7 mmol/L (3.3-5.1); Sodium 142 mmol/L (135-145)
[2023-03-18 06:58] LABS: Basophils Percent Auto 0.8 % (0-2); Eosinophils Absolute Auto 0.1 X10*3/uL (0.0-0.4); Eosinophils Percent Auto 2.7 % (0-4); Hematocrit 42.8 % (37.0-47.0); Hemoglobin 13.9 g/dl (12.0-16.0); Imm Gran Abs Auto 0.01 X10*3/uL (0.00-0.03); Imm Gran Pct Auto 0.2 % (0.0-0.4); Lymphocytes Absolute Auto 1.7 X10*3/uL (1.2-4.9); Lymphocytes Percent Auto 36.7 % (20-40); Mean Corpuscular HGB Conc 32.5 g/dl (31.0-35.0); Mean Corpuscular Hemoglobin 30.2 pg (27.0-33.0); Mean Platelet Volume 10.5 fL (9.4-12.3); Monocytes Absolute Auto 0.4 X10*3/uL (0.1-1.2); Monocytes Percent Auto 9.3 % (2-11); Neutrophils Absolute Auto 2.4 x10*3/uL (2.0-8.3); Neutrophils Percent Auto 50.3 % (45-73); Platelet Count 186 X10*3/uL (160-400); Red Cell Distribution Width 14.3 % (11.0-16.0); White Blood Count 4.7 X10*3/uL (4.8-10.8)
== END 2023-03-18 06:06 | disposition home or self-care (01) ==
LOC: HO.MMNH3L 06:05
PROVIDERS: Visit Provider Family Medicine
DX: A15.0 Tuberculosis of lung (principal); J96.01 Acute respiratory failure with hypoxia
CPT/HCPCS: 36415; 80048; 85025

== ENCOUNTER 2023-04-15 06:22 | Outpatient (REF) | payer MEDICARE, MEDICAID, SELFPAY ==
[2023-04-15 06:13] LABS: MANUAL DIFF FLAG NO
[2023-04-15 06:53] LABS: Basophils Percent Auto 0.3 % (0-2); Eosinophils Absolute Auto 0.1 X10*3/uL (0.0-0.4); Eosinophils Percent Auto 2.3 % (0-4); Hematocrit 39.5 % (37.0-47.0); Hemoglobin 13.2 g/dl (12.0-16.0); Imm Gran Abs Auto 0.01 X10*3/uL (0.00-0.03); Imm Gran Pct Auto 0.2 % (0.0-0.4); Lymphocytes Absolute Auto 1.7 X10*3/uL (1.2-4.9); Lymphocytes Percent Auto 27.7 % (20-40); Mean Corpuscular HGB Conc 33.4 g/dl (31.0-35.0); Mean Corpuscular Hemoglobin 30.6 pg (27.0-33.0); Mean Corpuscular Volume 91.6 fL (80.0-98.0); Monocytes Absolute Auto 0.6 X10*3/uL (0.1-1.2); Monocytes Percent Auto 9.5 % (2-11); Neutrophils Absolute Auto 3.6 x10*3/uL (2.0-8.3); Platelet Count 181 X10*3/uL (160-400); Red Blood Count 4.31 X10*6/uL (4.20-5.50); Red Cell Distribution Width 14.1 % (11.0-16.0)
[2023-04-15 07:06] LABS: Anion Gap 12 (12-20); Blood Urea Nitrogen 19 mg/dL (9-16); Calcium 8.8 mg/dL (8.4-10.2); Carbon Dioxide 24 mmol/L (22-29); Chloride 107 mmol/L (96-108); Estimated Glomerular Filt Rate > 60; Glucose Random 79 mg/dL (60-115); Potassium 3.9 mmol/L (3.3-5.1); Sodium 139 mmol/L (135-145)
== END 2023-04-15 06:23 | disposition home or self-care (01) ==
LOC: HO.MMNH3L 06:22
PROVIDERS: Visit Provider Family Medicine
DX: A15.0 Tuberculosis of lung (principal); J96.01 Acute respiratory failure with hypoxia
CPT/HCPCS: 36415; 80048; 85025

== ENCOUNTER 2023-05-20 05:58 | Outpatient (REF) | payer MEDICARE, MEDICAID, SELFPAY ==
[2023-05-20 05:55] LABS: MANUAL DIFF FLAG NO
[2023-05-20 06:00] LABS: Basophils Absolute Auto 0.1 X10*3/uL (0.0-0.2); Eosinophils Absolute Auto 0.1 X10*3/uL (0.0-0.4); Eosinophils Percent Auto 2.7 % (0-4); Hematocrit 41.2 % (37.0-47.0); Hemoglobin 13.6 g/dl (12.0-16.0); Imm Gran Abs Auto 0.02 X10*3/uL (0.00-0.03); Imm Gran Pct Auto 0.4 % (0.0-0.4); Lymphocytes Absolute Auto 1.6 X10*3/uL (1.2-4.9); Lymphocytes Percent Auto 31.4 % (20-40); Mean Corpuscular Hemoglobin 31.3 pg (27.0-33.0); Mean Corpuscular Volume 94.7 fL (80.0-98.0); Mean Platelet Volume 10.4 fL (9.4-12.3); Monocytes Absolute Auto 0.5 X10*3/uL (0.1-1.2); Monocytes Percent Auto 9.2 % (2-11); Neutrophils Absolute Auto 2.8 x10*3/uL (2.0-8.3); Neutrophils Percent Auto 55.3 % (45-73); Platelet Count 181 X10*3/uL (160-400); Red Blood Count 4.35 X10*6/uL (4.20-5.50); White Blood Count 5.1 X10*3/uL (4.8-10.8)
[2023-05-20 06:34] LABS: Anion Gap 14 (12-20); Blood Urea Nitrogen 19 mg/dL (9-16); Calcium 8.6 mg/dL (8.4-10.2); Carbon Dioxide 20 mmol/L (22-29); Chloride 110 mmol/L (96-108); Estimated Glomerular Filt Rate > 60; Glucose Random 88 mg/dL (60-115); Potassium 4.1 mmol/L (3.3-5.1); Sodium 140 mmol/L (135-145)
== END 2023-05-20 05:59 | disposition home or self-care (01) ==
LOC: HO.MMNH3L 05:58
PROVIDERS: Visit Provider Family Medicine
DX: A15.0 Tuberculosis of lung (principal); J96.01 Acute respiratory failure with hypoxia
CPT/HCPCS: 36415; 80048; 85025

== ENCOUNTER 2023-05-24 20:54 | Outpatient (REF) | payer MEDICARE, MEDICAID, SELFPAY | END 2023-05-24 20:55 | disposition home or self-care (01) | LOC: HO.MMNH3L 20:54 | PROVIDERS: Visit Provider Family Medicine | DX: R50.9 Fever, unspecified (principal) | CPT/HCPCS: 87070 ==

== ENCOUNTER 2023-06-18 06:39 | Outpatient (REF) | payer MEDICARE, MEDICAID, SELFPAY ==
[2023-06-18 06:31] LABS: MANUAL DIFF FLAG NO
[2023-06-18 07:25] LABS: Basophils Absolute Auto 0.1 X10*3/uL (0.0-0.2); Basophils Percent Auto 1.2 % (0-2); Eosinophils Absolute Auto 0.1 X10*3/uL (0.0-0.4); Eosinophils Percent Auto 2.6 % (0-4); Hematocrit 41.6 % (37.0-47.0); Imm Gran Abs Auto 0.01 X10*3/uL (0.00-0.03); Imm Gran Pct Auto 0.2 % (0.0-0.4); Lymphocytes Absolute Auto 1.8 X10*3/uL (1.2-4.9); Lymphocytes Percent Auto 36.2 % (20-40); Mean Corpuscular HGB Conc 33.7 g/dl (31.0-35.0); Mean Corpuscular Hemoglobin 31.3 pg (27.0-33.0); Mean Corpuscular Volume 92.9 fL (80.0-98.0); Mean Platelet Volume 10.5 fL (9.4-12.3); Monocytes Absolute Auto 0.5 X10*3/uL (0.1-1.2); Monocytes Percent Auto 8.9 % (2-11); Neutrophils Absolute Auto 2.6 x10*3/uL (2.0-8.3); Neutrophils Percent Auto 50.9 % (45-73); Platelet Count 191 X10*3/uL (160-400); Red Blood Count 4.48 X10*6/uL (4.20-5.50); Red Cell Distribution Width 13.9 % (11.0-16.0)
[2023-06-18 08:01] LABS: Anion Gap 12 (12-20); Blood Urea Nitrogen 19 mg/dL (9-16); Calcium 9.2 mg/dL (8.4-10.2); Carbon Dioxide 21 mmol/L (22-29); Chloride 111 mmol/L (96-108); Estimated Glomerular Filt Rate 57; Glucose Random 74 mg/dL (60-115); Potassium 4.1 mmol/L (3.3-5.1); Sodium 140 mmol/L (135-145)
== END 2023-06-18 06:40 | disposition home or self-care (01) ==
LOC: HO.MMNH3L 06:39
PROVIDERS: Visit Provider Family Medicine
DX: A15.0 Tuberculosis of lung (principal); J96.01 Acute respiratory failure with hypoxia
CPT/HCPCS: 36415; 80048; 85025

== ENCOUNTER 2023-07-15 06:29 | Outpatient (REF) | payer MEDICARE, MEDICAID, SELFPAY ==
[2023-07-15 06:04] LABS: MANUAL DIFF FLAG NO
[2023-07-15 07:08] LABS: Basophils Percent Auto 0.7 % (0-2); Eosinophils Absolute Auto 0.1 X10*3/uL (0.0-0.4); Hematocrit 39.6 % (37.0-47.0); Hemoglobin 13.3 g/dl (12.0-16.0); Imm Gran Abs Auto 0.01 X10*3/uL (0.00-0.03); Imm Gran Pct Auto 0.2 % (0.0-0.4); Lymphocytes Absolute Auto 1.4 X10*3/uL (1.2-4.9); Lymphocytes Percent Auto 30.2 % (20-40); Mean Corpuscular HGB Conc 33.6 g/dl (31.0-35.0); Mean Corpuscular Hemoglobin 31.1 pg (27.0-33.0); Mean Corpuscular Volume 92.5 fL (80.0-98.0); Mean Platelet Volume 10.5 fL (9.4-12.3); Monocytes Absolute Auto 0.4 X10*3/uL (0.1-1.2); Monocytes Percent Auto 9.3 % (2-11); Neutrophils Absolute Auto 2.6 x10*3/uL (2.0-8.3); Neutrophils Percent Auto 56.6 % (45-73); Platelet Count 181 X10*3/uL (160-400); Red Blood Count 4.28 X10*6/uL (4.20-5.50); Red Cell Distribution Width 13.5 % (11.0-16.0); White Blood Count 4.6 X10*3/uL (4.8-10.8)
[2023-07-15 07:28] LABS: Anion Gap 12 (12-20); Blood Urea Nitrogen 16 mg/dL (9-16); Calcium 8.5 mg/dL (8.4-10.2); Carbon Dioxide 22 mmol/L (22-29); Chloride 109 mmol/L (96-108); Estimated Glomerular Filt Rate > 60; Glucose Random 76 mg/dL (60-115); Potassium 3.7 mmol/L (3.3-5.1); Sodium 139 mmol/L (135-145)
== END 2023-07-15 06:30 | disposition home or self-care (01) ==
LOC: HO.MMNH3L 06:29
PROVIDERS: Visit Provider Family Medicine
DX: A15.0 Tuberculosis of lung (principal); J96.01 Acute respiratory failure with hypoxia
CPT/HCPCS: 36415; 80048; 85025

== ENCOUNTER 2023-08-19 07:55 | Outpatient (REF) | payer MEDICARE, MEDICAID, SELFPAY ==
[2023-08-19 06:13] LABS: MANUAL DIFF FLAG NO
[2023-08-19 07:24] LABS: Basophils Percent Auto 0.8 % (0-2); Eosinophils Absolute Auto 0.1 X10*3/uL (0.0-0.4); Eosinophils Percent Auto 2.3 % (0-4); Hematocrit 40.8 % (37.0-47.0); Hemoglobin 13.7 g/dl (12.0-16.0); Imm Gran Abs Auto 0.02 X10*3/uL (0.00-0.03); Imm Gran Pct Auto 0.4 % (0.0-0.4); Lymphocytes Absolute Auto 1.4 X10*3/uL (1.2-4.9); Mean Corpuscular HGB Conc 33.6 g/dl (31.0-35.0); Mean Corpuscular Volume 92.3 fL (80.0-98.0); Mean Platelet Volume 10.5 fL (9.4-12.3); Monocytes Absolute Auto 0.5 X10*3/uL (0.1-1.2); Monocytes Percent Auto 9.6 % (2-11); Neutrophils Absolute Auto 3.1 x10*3/uL (2.0-8.3); Neutrophils Percent Auto 59.9 % (45-73); Platelet Count 187 X10*3/uL (160-400); Red Blood Count 4.42 X10*6/uL (4.20-5.50); Red Cell Distribution Width 13.1 % (11.0-16.0); White Blood Count 5.1 X10*3/uL (4.8-10.8)
[2023-08-19 07:41] LABS: Anion Gap 12 (12-20); Blood Urea Nitrogen 21 mg/dL (9-16); Calcium 8.9 mg/dL (8.4-10.2); Carbon Dioxide 21 mmol/L (22-29); Chloride 111 mmol/L (96-108); Estimated Glomerular Filt Rate > 60; Glucose Random 84 mg/dL (60-115); Sodium 140 mmol/L (135-145)
[2023-08-19 08:07] LABS: Thyroid Stimulating Hormone 0.17 uIU/mL (0.32-4.0)
== END 2023-08-19 07:56 | disposition home or self-care (01) ==
LOC: HO.MMNH3L 07:55
PROVIDERS: Visit Provider Family Medicine
DX: A15.0 Tuberculosis of lung (principal); J96.01 Acute respiratory failure with hypoxia
CPT/HCPCS: 36415; 80048; 84443; 85025

== ENCOUNTER 2023-09-10 12:22 | Outpatient (REF) | payer MEDICARE, SELFPAY | END 2023-09-10 12:23 | disposition home or self-care (01) | LOC: HO.MMNH3L 12:22 | PROVIDERS: Visit Provider Family Medicine | DX: Z13.89 Encounter for screening for other disorder (principal) ==

== ENCOUNTER 2023-09-16 07:28 | Outpatient (REF) | payer MEDICARE, MEDICAID, SELFPAY ==
[2023-09-16 06:08] LABS: MANUAL DIFF FLAG NO
[2023-09-16 06:59] LABS: Basophils Absolute Auto 0.1 X10*3/uL (0.0-0.2); Eosinophils Absolute Auto 0.1 X10*3/uL (0.0-0.4); Eosinophils Percent Auto 2.4 % (0-4); Hemoglobin 13.9 g/dl (12.0-16.0); Lymphocytes Absolute Auto 1.7 X10*3/uL (1.2-4.9); Lymphocytes Percent Auto 33.3 % (20-40); Mean Corpuscular HGB Conc 33.1 g/dl (31.0-35.0); Mean Corpuscular Hemoglobin 30.7 pg (27.0-33.0); Mean Corpuscular Volume 92.7 fL (80.0-98.0); Monocytes Absolute Auto 0.5 X10*3/uL (0.1-1.2); Monocytes Percent Auto 9.6 % (2-11); Neutrophils Absolute Auto 2.7 x10*3/uL (2.0-8.3); Neutrophils Percent Auto 53.7 % (45-73); Platelet Count 176 X10*3/uL (160-400); Red Blood Count 4.53 X10*6/uL (4.20-5.50); Red Cell Distribution Width 13.1 % (11.0-16.0)
[2023-09-16 07:28] LABS: Anion Gap 10 (12-20); Blood Urea Nitrogen 18 mg/dL (9-16); Calcium 8.8 mg/dL (8.4-10.2); Carbon Dioxide 22 mmol/L (22-29); Chloride 113 mmol/L (96-108); Estimated Glomerular Filt Rate > 60; Glucose Random 75 mg/dL (60-115); Sodium 141 mmol/L (135-145)
== END 2023-09-16 07:29 | disposition home or self-care (01) ==
LOC: HO.MMNH3L 07:28
PROVIDERS: Visit Provider Family Medicine
DX: A15.0 Tuberculosis of lung (principal); J96.01 Acute respiratory failure with hypoxia
CPT/HCPCS: 36415; 80048; 85025

== ENCOUNTER 2023-10-15 06:25 | Outpatient (REF) | payer MEDICARE, MEDICAID, SELFPAY ==
[2023-10-15 06:13] LABS: MANUAL DIFF FLAG NO
[2023-10-15 06:39] LABS: Basophils Absolute Auto 0.1 X10*3/uL (0.0-0.2); Basophils Percent Auto 0.9 % (0-2); Eosinophils Absolute Auto 0.2 X10*3/uL (0.0-0.4); Eosinophils Percent Auto 3.4 % (0-4); Hematocrit 41.9 % (37.0-47.0); Hemoglobin 13.7 g/dl (12.0-16.0); Imm Gran Abs Auto 0.01 X10*3/uL (0.00-0.03); Imm Gran Pct Auto 0.2 % (0.0-0.4); Lymphocytes Absolute Auto 1.8 X10*3/uL (1.2-4.9); Lymphocytes Percent Auto 34.2 % (20-40); Mean Corpuscular HGB Conc 32.7 g/dl (31.0-35.0); Mean Corpuscular Volume 91.9 fL (80.0-98.0); Mean Platelet Volume 10.5 fL (9.4-12.3); Monocytes Absolute Auto 0.5 X10*3/uL (0.1-1.2); Monocytes Percent Auto 10.2 % (2-11); Neutrophils Absolute Auto 2.7 x10*3/uL (2.0-8.3); Neutrophils Percent Auto 51.1 % (45-73); Platelet Count 188 X10*3/uL (160-400); Red Blood Count 4.56 X10*6/uL (4.20-5.50); White Blood Count 5.3 X10*3/uL (4.8-10.8)
[2023-10-15 07:01] LABS: Anion Gap 10 (12-20); Blood Urea Nitrogen 19 mg/dL (9-16); Calcium 8.8 mg/dL (8.4-10.2); Carbon Dioxide 24 mmol/L (22-29); Chloride 111 mmol/L (96-108); Estimated Glomerular Filt Rate > 60; Glucose Random 83 mg/dL (60-115); Potassium 4.4 mmol/L (3.3-5.1); Sodium 141 mmol/L (135-145)
== END 2023-10-15 06:26 | disposition home or self-care (01) ==
LOC: HO.MMNH3L 06:25
PROVIDERS: Visit Provider Family Medicine
DX: A15.0 Tuberculosis of lung (principal); J96.01 Acute respiratory failure with hypoxia
CPT/HCPCS: 36415; 80048; 85025

== ENCOUNTER 2023-11-18 06:28 | Outpatient (REF) | payer MEDICARE, MEDICAID, SELFPAY ==
[2023-11-18 06:07] LABS: MANUAL DIFF FLAG NO
[2023-11-18 06:38] LABS: Basophils Percent Auto 0.5 % (0-2); Eosinophils Absolute Auto 0.1 X10*3/uL (0.0-0.4); Eosinophils Percent Auto 2.3 % (0-4); Hematocrit 40.4 % (37.0-47.0); Hemoglobin 13.6 g/dl (12.0-16.0); Imm Gran Abs Auto 0.02 X10*3/uL (0.00-0.03); Imm Gran Pct Auto 0.4 % (0.0-0.4); Lymphocytes Absolute Auto 1.6 X10*3/uL (1.2-4.9); Lymphocytes Percent Auto 28.4 % (20-40); Mean Corpuscular HGB Conc 33.7 g/dl (31.0-35.0); Mean Corpuscular Hemoglobin 30.1 pg (27.0-33.0); Mean Corpuscular Volume 89.4 fL (80.0-98.0); Mean Platelet Volume 10.4 fL (9.4-12.3); Monocytes Absolute Auto 0.5 X10*3/uL (0.1-1.2); Monocytes Percent Auto 8.5 % (2-11); Neutrophils Absolute Auto 3.4 x10*3/uL (2.0-8.3); Neutrophils Percent Auto 59.9 % (45-73); Platelet Count 191 X10*3/uL (160-400); Red Blood Count 4.52 X10*6/uL (4.20-5.50); Red Cell Distribution Width 13.5 % (11.0-16.0); White Blood Count 5.6 X10*3/uL (4.8-10.8)
[2023-11-18 07:10] LABS: Anion Gap 10 (12-20); Blood Urea Nitrogen 15 mg/dL (9-16); Calcium 9.4 mg/dL (8.4-10.2); Carbon Dioxide 23 mmol/L (22-29); Chloride 110 mmol/L (96-108); Estimated Glomerular Filt Rate > 60; Glucose Random 77 mg/dL (60-115); Potassium 3.8 mmol/L (3.3-5.1); Sodium 139 mmol/L (135-145)
== END 2023-11-18 06:29 | disposition home or self-care (01) ==
LOC: HO.MMNH3L 06:28
PROVIDERS: Visit Provider Family Medicine
DX: A15.0 Tuberculosis of lung (principal); J96.01 Acute respiratory failure with hypoxia
CPT/HCPCS: 36415; 80048; 85025

== ENCOUNTER 2023-12-16 06:08 | Outpatient (REF) | payer MEDICARE, MEDICAID, SELFPAY ==
[2023-12-16 05:59] LABS: MANUAL DIFF FLAG NO
[2023-12-16 06:15] LABS: Basophils Absolute Auto 0.1 X10*3/uL (0.0-0.2); Basophils Percent Auto 0.9 % (0-2); Eosinophils Absolute Auto 0.1 X10*3/uL (0.0-0.4); Eosinophils Percent Auto 2.4 % (0-4); Hemoglobin 15.1 g/dl (12.0-16.0); Imm Gran Abs Auto 0.01 X10*3/uL (0.00-0.03); Imm Gran Pct Auto 0.2 % (0.0-0.4); Lymphocytes Absolute Auto 1.8 X10*3/uL (1.2-4.9); Lymphocytes Percent Auto 32.2 % (20-40); Mean Corpuscular HGB Conc 32.8 g/dl (31.0-35.0); Mean Corpuscular Hemoglobin 30.1 pg (27.0-33.0); Mean Corpuscular Volume 91.8 fL (80.0-98.0); Mean Platelet Volume 10.8 fL (9.4-12.3); Monocytes Absolute Auto 0.4 X10*3/uL (0.1-1.2); Monocytes Percent Auto 7.3 % (2-11); Neutrophils Absolute Auto 3.3 x10*3/uL (2.0-8.3); Platelet Count 207 X10*3/uL (160-400); Red Blood Count 5.01 X10*6/uL (4.20-5.50); Red Cell Distribution Width 13.8 % (11.0-16.0); White Blood Count 5.7 X10*3/uL (4.8-10.8)
[2023-12-16 06:25] LABS: Anion Gap 11 (12-20); Blood Urea Nitrogen 19 mg/dL (9-16); Calcium 9.2 mg/dL (8.4-10.2); Carbon Dioxide 21 mmol/L (22-29); Chloride 109 mmol/L (96-108); Estimated Glomerular Filt Rate > 60; Glucose Random 87 mg/dL (60-115); Potassium 4.2 mmol/L (3.3-5.1); Sodium 137 mmol/L (135-145)
== END 2023-12-16 06:09 | disposition home or self-care (01) ==
LOC: HO.MMNH3L 06:08
PROVIDERS: Visit Provider Family Medicine
DX: A15.0 Tuberculosis of lung (principal); J96.01 Acute respiratory failure with hypoxia
CPT/HCPCS: 36415; 80048; 85025

== ENCOUNTER 2024-01-09 15:37 | Outpatient (REF) | payer MEDICARE, SELFPAY ==
[2024-01-09 16:42] LABS: Influenza A PCR NEGATIVE (Negative); Influenza B PCR NEGATIVE (Negative); Resp Syncy Virus RNA Qual PCR NEGATIVE (Negative); SARS COV2 PCR INHOUSE NEGATIVE (Negative)
== END 2024-01-09 15:38 | disposition home or self-care (01) ==
LOC: HO.MMNH3L 15:37
PROVIDERS: Visit Provider Family Medicine
DX: Z11.52 Encounter for screening for COVID-19 (principal); Z20.822 Contact with and (suspected) exposure to COVID-19; Z86.16 Personal history of COVID-19
CPT/HCPCS: 0241U

== ENCOUNTER 2024-01-13 06:33 | Outpatient (REF) | payer MEDICARE, MEDICAID, SELFPAY ==
[2024-01-13 05:55] LABS: MANUAL DIFF FLAG NO
[2024-01-13 06:22] LABS: Basophils Percent Auto 0.7 % (0-2); Eosinophils Absolute Auto 0.1 X10*3/uL (0.0-0.4); Eosinophils Percent Auto 2.5 % (0-4); Hematocrit 43.2 % (37.0-47.0); Hemoglobin 14.1 g/dl (12.0-16.0); Imm Gran Abs Auto 0.01 X10*3/uL (0.00-0.03); Imm Gran Pct Auto 0.2 % (0.0-0.4); Lymphocytes Absolute Auto 1.4 X10*3/uL (1.2-4.9); Lymphocytes Percent Auto 32.5 % (20-40); Mean Corpuscular HGB Conc 32.6 g/dl (31.0-35.0); Mean Corpuscular Volume 91.9 fL (80.0-98.0); Mean Platelet Volume 10.8 fL (9.4-12.3); Monocytes Absolute Auto 0.4 X10*3/uL (0.1-1.2); Monocytes Percent Auto 8.8 % (2-11); Neutrophils Absolute Auto 2.5 x10*3/uL (2.0-8.3); Neutrophils Percent Auto 55.3 % (45-73); Platelet Count 188 X10*3/uL (160-400); Red Cell Distribution Width 13.4 % (11.0-16.0); White Blood Count 4.4 X10*3/uL (4.8-10.8)
[2024-01-13 06:45] LABS: Anion Gap 11 (12-20); Blood Urea Nitrogen 14 mg/dL (9-16); Calcium 8.9 mg/dL (8.4-10.2); Carbon Dioxide 25 mmol/L (22-29); Chloride 111 mmol/L (96-108); Estimated Glomerular Filt Rate > 60; Glucose Random 81 mg/dL (60-115); Potassium 4.1 mmol/L (3.3-5.1); Sodium 143 mmol/L (135-145)
== END 2024-01-13 06:34 | disposition home or self-care (01) ==
LOC: HO.MMNH3L 06:33
PROVIDERS: Visit Provider Family Medicine
DX: J96.01 Acute respiratory failure with hypoxia (principal); A15.0 Tuberculosis of lung
CPT/HCPCS: 36415; 80048; 85025

== ENCOUNTER 2024-01-20 06:08 | Outpatient (REF) | payer MEDICARE, MEDICAID, SELFPAY ==
[2024-01-20 07:30] LABS: Thyroid Stimulating Hormone 0.12 uIU/mL (0.32-4.0)
== END 2024-01-20 06:09 | disposition home or self-care (01) ==
LOC: HO.MMNH3L 06:08
PROVIDERS: Visit Provider Family Medicine
DX: E03.9 Hypothyroidism, unspecified (principal)
CPT/HCPCS: 36415; 84439; 84443

== ENCOUNTER 2024-02-17 06:32 | Outpatient (REF) | payer MEDICARE, MEDICAID, SELFPAY ==
[2024-02-17 06:20] LABS: MANUAL DIFF FLAG NO
[2024-02-17 07:16] LABS: Basophils Percent Auto 0.6 % (0-2); Eosinophils Absolute Auto 0.1 X10*3/uL (0.0-0.4); Eosinophils Percent Auto 2.7 % (0-4); Hematocrit 44.5 % (37.0-47.0); Hemoglobin 14.8 g/dl (12.0-16.0); Imm Gran Abs Auto 0.02 X10*3/uL (0.00-0.03); Imm Gran Pct Auto 0.4 % (0.0-0.4); Lymphocytes Absolute Auto 1.5 X10*3/uL (1.2-4.9); Lymphocytes Percent Auto 29.2 % (20-40); Mean Corpuscular HGB Conc 33.3 g/dl (31.0-35.0); Mean Corpuscular Hemoglobin 30.4 pg (27.0-33.0); Mean Corpuscular Volume 91.4 fL (80.0-98.0); Mean Platelet Volume 10.8 fL (9.4-12.3); Monocytes Absolute Auto 0.5 X10*3/uL (0.1-1.2); Monocytes Percent Auto 9.2 % (2-11); Neutrophils Percent Auto 57.9 % (45-73); Platelet Count 213 X10*3/uL (160-400); Red Blood Count 4.87 X10*6/uL (4.20-5.50); Red Cell Distribution Width 13.3 % (11.0-16.0); White Blood Count 5.1 X10*3/uL (4.8-10.8)
[2024-02-17 07:19] LABS: Anion Gap 14 (12-20); Blood Urea Nitrogen 18 mg/dL (9-16); Calcium 9.7 mg/dL (8.4-10.2); Carbon Dioxide 23 mmol/L (22-29); Chloride 107 mmol/L (96-108); Estimated Glomerular Filt Rate > 60; Glucose Random 76 mg/dL (60-115); Potassium 3.7 mmol/L (3.3-5.1); Sodium 140 mmol/L (135-145)
== END 2024-02-17 06:33 | disposition home or self-care (01) ==
LOC: HO.MMNH3L 06:32
PROVIDERS: Visit Provider Family Medicine
DX: A15.0 Tuberculosis of lung (principal); J96.01 Acute respiratory failure with hypoxia
CPT/HCPCS: 36415; 80048; 85025

== ENCOUNTER 2024-03-16 06:02 | Outpatient (REF) | payer MEDICARE, MEDICAID, SELFPAY ==
[2024-03-16 05:49] LABS: MANUAL DIFF FLAG NO
[2024-03-16 06:54] LABS: Basophils Percent Auto 0.8 % (0-2); Eosinophils Absolute Auto 0.1 X10*3/uL (0.0-0.4); Eosinophils Percent Auto 2.1 % (0-4); Hematocrit 41.3 % (37.0-47.0); Hemoglobin 13.9 g/dl (12.0-16.0); Imm Gran Abs Auto 0.02 X10*3/uL (0.00-0.03); Imm Gran Pct Auto 0.4 % (0.0-0.4); Lymphocytes Absolute Auto 1.4 X10*3/uL (1.2-4.9); Lymphocytes Percent Auto 26.9 % (20-40); Mean Corpuscular HGB Conc 33.7 g/dl (31.0-35.0); Mean Corpuscular Hemoglobin 30.5 pg (27.0-33.0); Mean Corpuscular Volume 90.8 fL (80.0-98.0); Mean Platelet Volume 10.6 fL (9.4-12.3); Monocytes Absolute Auto 0.4 X10*3/uL (0.1-1.2); Monocytes Percent Auto 8.1 % (2-11); Neutrophils Absolute Auto 3.2 x10*3/uL (2.0-8.3); Neutrophils Percent Auto 61.7 % (45-73); Platelet Count 178 X10*3/uL (160-400); Red Blood Count 4.55 X10*6/uL (4.20-5.50); Red Cell Distribution Width 13.7 % (11.0-16.0); White Blood Count 5.2 X10*3/uL (4.8-10.8)
[2024-03-16 07:10] LABS: Anion Gap 13 (12-20); Blood Urea Nitrogen 18 mg/dL (9-16); Calcium 9.1 mg/dL (8.4-10.2); Carbon Dioxide 20 mmol/L (22-29); Chloride 110 mmol/L (96-108); Estimated Glomerular Filt Rate > 60; Glucose Random 80 mg/dL (60-115); Potassium 4.1 mmol/L (3.3-5.1); Sodium 139 mmol/L (135-145)
== END 2024-03-16 06:03 | disposition home or self-care (01) ==
LOC: HO.MMNH3L 06:02
PROVIDERS: Visit Provider Family Medicine
DX: A15.0 Tuberculosis of lung (principal); J96.01 Acute respiratory failure with hypoxia
CPT/HCPCS: 36415; 80048; 85025

== ENCOUNTER 2024-04-13 07:12 | Outpatient (REF) | payer MEDICARE, MEDICAID, SELFPAY ==
[2024-04-13 06:23] LABS: MANUAL DIFF FLAG NO
[2024-04-13 07:09] LABS: Basophils Absolute Auto 0.1 X10*3/uL (0.0-0.2); Basophils Percent Auto 1.1 % (0-2); Eosinophils Absolute Auto 0.2 X10*3/uL (0.0-0.4); Eosinophils Percent Auto 2.6 % (0-4); Hematocrit 43.4 % (37.0-47.0); Hemoglobin 14.5 g/dl (12.0-16.0); Imm Gran Abs Auto 0.02 X10*3/uL (0.00-0.03); Imm Gran Pct Auto 0.4 % (0.0-0.4); Lymphocytes Absolute Auto 2.1 X10*3/uL (1.2-4.9); Lymphocytes Percent Auto 37.6 % (20-40); Mean Corpuscular HGB Conc 33.4 g/dl (31.0-35.0); Mean Corpuscular Hemoglobin 30.3 pg (27.0-33.0); Mean Corpuscular Volume 90.6 fL (80.0-98.0); Mean Platelet Volume 10.8 fL (9.4-12.3); Monocytes Absolute Auto 0.5 X10*3/uL (0.1-1.2); Monocytes Percent Auto 8.6 % (2-11); Neutrophils Absolute Auto 2.8 x10*3/uL (2.0-8.3); Neutrophils Percent Auto 49.7 % (45-73); Platelet Count 198 X10*3/uL (160-400); Red Blood Count 4.79 X10*6/uL (4.20-5.50); Red Cell Distribution Width 14.1 % (11.0-16.0); White Blood Count 5.7 X10*3/uL (4.8-10.8)
[2024-04-13 07:44] LABS: Anion Gap 13 (12-20); Blood Urea Nitrogen 22 mg/dL (9-16); Calcium 9.5 mg/dL (8.4-10.2); Carbon Dioxide 22 mmol/L (22-29); Chloride 111 mmol/L (96-108); Estimated Glomerular Filt Rate > 60; Glucose Random 83 mg/dL (60-115); Potassium 3.9 mmol/L (3.3-5.1); Sodium 142 mmol/L (135-145)
== END 2024-04-13 07:13 | disposition home or self-care (01) ==
LOC: HO.MMNH3L 07:12
PROVIDERS: Visit Provider Family Medicine
DX: J96.01 Acute respiratory failure with hypoxia (principal)
CPT/HCPCS: 36415; 80048; 85025

== ENCOUNTER 2024-05-18 06:20 | Outpatient (REF) | payer MEDICARE, SELFPAY ==
[2024-05-18 06:00] LABS: MANUAL DIFF FLAG NO
[2024-05-18 06:49] LABS: Anion Gap 12 (12-20); Blood Urea Nitrogen 20 mg/dL (9-16); Carbon Dioxide 24 mmol/L (22-29); Chloride 107 mmol/L (96-108); Estimated Glomerular Filt Rate > 60; Glucose Random 72 mg/dL (60-115); Potassium 3.7 mmol/L (3.3-5.1); Sodium 139 mmol/L (135-145)
[2024-05-18 07:04] LABS: Basophils Percent Auto 0.8 % (0-2); Eosinophils Absolute Auto 0.1 X10*3/uL (0.0-0.4); Eosinophils Percent Auto 2.3 % (0-4); Hematocrit 43.3 % (37.0-47.0); Hemoglobin 14.4 g/dl (12.0-16.0); Imm Gran Abs Auto 0.01 X10*3/uL (0.00-0.03); Imm Gran Pct Auto 0.2 % (0.0-0.4); Lymphocytes Absolute Auto 1.9 X10*3/uL (1.2-4.9); Lymphocytes Percent Auto 39.6 % (20-40); Mean Corpuscular HGB Conc 33.3 g/dl (31.0-35.0); Mean Corpuscular Hemoglobin 30.8 pg (27.0-33.0); Mean Corpuscular Volume 92.5 fL (80.0-98.0); Mean Platelet Volume 10.4 fL (9.4-12.3); Monocytes Absolute Auto 0.4 X10*3/uL (0.1-1.2); Monocytes Percent Auto 8.7 % (2-11); Neutrophils Absolute Auto 2.4 x10*3/uL (2.0-8.3); Neutrophils Percent Auto 48.4 % (45-73); Platelet Count 236 X10*3/uL (160-400); Red Blood Count 4.68 X10*6/uL (4.20-5.50); Red Cell Distribution Width 14.3 % (11.0-16.0); White Blood Count 4.9 X10*3/uL (4.8-10.8)
== END 2024-05-18 06:21 | disposition home or self-care (01) ==
LOC: HO.MMNH3L 06:20
PROVIDERS: Visit Provider Family Medicine
DX: J96.01 Acute respiratory failure with hypoxia (principal)
CPT/HCPCS: 36415; 80048; 85025

== ENCOUNTER 2024-06-16 06:43 | Outpatient (REF) | payer MEDICARE, MEDICAID, SELFPAY ==
[2024-06-16 05:53] LABS: MANUAL DIFF FLAG NO
[2024-06-16 06:33] LABS: Basophils Percent Auto 0.8 % (0-2); Eosinophils Absolute Auto 0.2 X10*3/uL (0.0-0.4); Eosinophils Percent Auto 3.3 % (0-4); Hematocrit 43.3 % (37.0-47.0); Hemoglobin 14.2 g/dl (12.0-16.0); Imm Gran Abs Auto 0.02 X10*3/uL (0.00-0.03); Imm Gran Pct Auto 0.4 % (0.0-0.4); Lymphocytes Absolute Auto 1.7 X10*3/uL (1.2-4.9); Lymphocytes Percent Auto 32.4 % (20-40); Mean Corpuscular HGB Conc 32.8 g/dl (31.0-35.0); Mean Corpuscular Hemoglobin 30.8 pg (27.0-33.0); Mean Corpuscular Volume 93.9 fL (80.0-98.0); Mean Platelet Volume 10.7 fL (9.4-12.3); Monocytes Absolute Auto 0.5 X10*3/uL (0.1-1.2); Monocytes Percent Auto 8.9 % (2-11); Neutrophils Absolute Auto 2.8 x10*3/uL (2.0-8.3); Neutrophils Percent Auto 54.2 % (45-73); Platelet Count 214 X10*3/uL (160-400); Red Blood Count 4.61 X10*6/uL (4.20-5.50); Red Cell Distribution Width 13.2 % (11.0-16.0); White Blood Count 5.2 X10*3/uL (4.8-10.8)
[2024-06-16 07:03] LABS: Anion Gap 11 (12-20); Blood Urea Nitrogen 15 mg/dL (9-16); Carbon Dioxide 25 mmol/L (22-29); Chloride 108 mmol/L (96-108); Estimated Glomerular Filt Rate > 60; Glucose Random 83 mg/dL (60-115); Potassium 3.8 mmol/L (3.3-5.1); Sodium 140 mmol/L (135-145)
== END 2024-06-16 06:44 | disposition home or self-care (01) ==
LOC: HO.MMNH3L 06:43
PROVIDERS: Visit Provider Hospitalist
DX: J96.01 Acute respiratory failure with hypoxia (principal)
CPT/HCPCS: 36415; 80048; 85025

== ENCOUNTER 2024-07-20 06:36 | Outpatient (REF) | payer MEDICARE, MEDICAID, SELFPAY ==
[2024-07-20 06:14] LABS: MANUAL DIFF FLAG NO
[2024-07-20 07:10] LABS: Basophils Absolute Auto 0.1 X10*3/uL (0.0-0.2); Basophils Percent Auto 1.1 % (0-2); Eosinophils Absolute Auto 0.1 X10*3/uL (0.0-0.4); Eosinophils Percent Auto 2.4 % (0-4); Hematocrit 41.9 % (37.0-47.0); Hemoglobin 13.9 g/dl (12.0-16.0); Imm Gran Abs Auto 0.01 X10*3/uL (0.00-0.03); Imm Gran Pct Auto 0.2 % (0.0-0.4); Lymphocytes Absolute Auto 1.3 X10*3/uL (1.2-4.9); Lymphocytes Percent Auto 28.7 % (20-40); Mean Corpuscular HGB Conc 33.2 g/dl (31.0-35.0); Mean Corpuscular Hemoglobin 30.5 pg (27.0-33.0); Mean Corpuscular Volume 92.1 fL (80.0-98.0); Mean Platelet Volume 10.3 fL (9.4-12.3); Monocytes Absolute Auto 0.5 X10*3/uL (0.1-1.2); Monocytes Percent Auto 10.2 % (2-11); Neutrophils Absolute Auto 2.7 x10*3/uL (2.0-8.3); Neutrophils Percent Auto 57.4 % (45-73); Platelet Count 204 X10*3/uL (160-400); Red Blood Count 4.55 X10*6/uL (4.20-5.50); Red Cell Distribution Width 13.1 % (11.0-16.0); White Blood Count 4.6 X10*3/uL (4.8-10.8)
[2024-07-20 07:18] LABS: Anion Gap 7 (12-20); Blood Urea Nitrogen 21 mg/dL (9-16); Calcium 9.1 mg/dL (8.4-10.2); Carbon Dioxide 25 mmol/L (22-29); Chloride 113 mmol/L (96-108); Estimated Glomerular Filt Rate > 60; Glucose Random 79 mg/dL (60-115); Potassium 4.1 mmol/L (3.3-5.1); Sodium 141 mmol/L (135-145)
== END 2024-07-20 06:37 | disposition home or self-care (01) ==
LOC: HO.MMNH3L 06:36
PROVIDERS: Visit Provider Family Medicine
DX: A15.0 Tuberculosis of lung (principal); J96.01 Acute respiratory failure with hypoxia
CPT/HCPCS: 36415; 80048; 85025

== ENCOUNTER 2024-08-17 06:37 | Outpatient (REF) | payer MEDICARE, SELFPAY ==
[2024-08-17 06:02] LABS: MANUAL DIFF FLAG NO
[2024-08-17 07:12] LABS: Basophils Absolute Auto 0.1 X10*3/uL (0.0-0.2); Basophils Percent Auto 0.9 % (0-2); Eosinophils Absolute Auto 0.1 X10*3/uL (0.0-0.4); Eosinophils Percent Auto 1.7 % (0-4); Hematocrit 42.8 % (37.0-47.0); Hemoglobin 14.2 g/dl (12.0-16.0); Imm Gran Abs Auto 0.02 X10*3/uL (0.00-0.03); Imm Gran Pct Auto 0.4 % (0.0-0.4); Lymphocytes Absolute Auto 1.8 X10*3/uL (1.2-4.9); Mean Corpuscular HGB Conc 33.2 g/dl (31.0-35.0); Mean Corpuscular Hemoglobin 30.3 pg (27.0-33.0); Mean Corpuscular Volume 91.3 fL (80.0-98.0); Mean Platelet Volume 9.9 fL (9.4-12.3); Monocytes Absolute Auto 0.4 X10*3/uL (0.1-1.2); Monocytes Percent Auto 7.8 % (2-11); Neutrophils Percent Auto 56.2 % (45-73); Platelet Count 212 X10*3/uL (160-400); Red Blood Count 4.69 X10*6/uL (4.20-5.50); Red Cell Distribution Width 13.1 % (11.0-16.0); White Blood Count 5.4 X10*3/uL (4.8-10.8)
[2024-08-17 08:09] LABS: Anion Gap 12 (12-20); Blood Urea Nitrogen 20 mg/dL (9-16); Calcium 9.2 mg/dL (8.4-10.2); Carbon Dioxide 22 mmol/L (22-29); Chloride 110 mmol/L (96-108); Estimated Glomerular Filt Rate > 60; Glucose Random 95 mg/dL (60-115); Potassium 3.6 mmol/L (3.3-5.1); Sodium 140 mmol/L (135-145)
[2024-08-20 06:05] LABS: Thyroid Stimulating Hormone 0.14 uIU/mL (0.32-4.0)
== END 2024-08-17 06:38 | disposition home or self-care (01) ==
LOC: HO.MMNH3L 06:37
PROVIDERS: Visit Provider Family Medicine
DX: A15.0 Tuberculosis of lung (principal); J96.01 Acute respiratory failure with hypoxia
CPT/HCPCS: 36415; 80048; 84443; 85025

== ENCOUNTER 2024-09-14 06:29 | Outpatient (REF) | payer MEDICARE, SELFPAY ==
[2024-09-14 06:19] LABS: MANUAL DIFF FLAG NO
[2024-09-14 06:31] LABS: Basophils Absolute Auto 0.1 X10*3/uL (0.0-0.2); Basophils Percent Auto 0.9 % (0-2); Eosinophils Absolute Auto 0.1 X10*3/uL (0.0-0.4); Eosinophils Percent Auto 1.6 % (0-4); Hematocrit 43.2 % (37.0-47.0); Hemoglobin 14.5 g/dl (12.0-16.0); Imm Gran Abs Auto 0.02 X10*3/uL (0.00-0.03); Imm Gran Pct Auto 0.4 % (0.0-0.4); Lymphocytes Absolute Auto 1.6 X10*3/uL (1.2-4.9); Lymphocytes Percent Auto 28.2 % (20-40); Mean Corpuscular HGB Conc 33.6 g/dl (31.0-35.0); Mean Corpuscular Volume 89.3 fL (80.0-98.0); Mean Platelet Volume 10.1 fL (9.4-12.3); Monocytes Absolute Auto 0.5 X10*3/uL (0.1-1.2); Monocytes Percent Auto 8.3 % (2-11); Neutrophils Absolute Auto 3.4 x10*3/uL (2.0-8.3); Neutrophils Percent Auto 60.6 % (45-73); Platelet Count 206 X10*3/uL (160-400); Red Blood Count 4.84 X10*6/uL (4.20-5.50); Red Cell Distribution Width 13.3 % (11.0-16.0); White Blood Count 5.6 X10*3/uL (4.8-10.8)
[2024-09-14 06:53] LABS: Anion Gap 11 (12-20); Blood Urea Nitrogen 20 mg/dL (9-16); Calcium 9.2 mg/dL (8.4-10.2); Carbon Dioxide 23 mmol/L (22-29); Chloride 111 mmol/L (96-108); Estimated Glomerular Filt Rate 60; Glucose Random 89 mg/dL (60-115); Potassium 3.8 mmol/L (3.3-5.1); Sodium 141 mmol/L (135-145)
== END 2024-09-14 06:30 | disposition home or self-care (01) ==
LOC: HO.MMNH3L 06:29
PROVIDERS: Visit Provider Family Medicine
DX: J96.01 Acute respiratory failure with hypoxia (principal); A15.0 Tuberculosis of lung
CPT/HCPCS: 36415; 80048; 85025

== ENCOUNTER 2024-10-19 06:19 | Outpatient (REF) | payer MEDICARE, SELFPAY ==
[2024-10-19 06:03] LABS: MANUAL DIFF FLAG NO
--- OUTSIDE RECORDS SUMMARY | 2024-10-19 06:26 | XMS_ITS | Data Portability ---
Author Organization [facility], Main Office Address [address] [place] [address] Care Team Providers Care Licensed Practical Nurse Instructor Name Role Phone KAREN CONTEH 3RD FLOOR OTHER [phone] Assessment No assessment recorded. Plan of Treatment Reminders Order Date Submit Date Provider Last Modified By Organization Details Last Modified Time Details Appointments None record ed. Lab None record ed. Referral None record ed. Procedures None record ed. Surgeries None record ed. Imaging None record ed. Medication Orders None record ed. Patient TargetsNo targets recorded. Patient InstructionsNo instructions recorded. Reason for Referral None Reported. Problems Name Problem SNOMED Code Status Onset Date Resolution Date Notes Provider Name and Address Organization Details Recorded Time Chronic obstructiv e pulmonary disease 50660554 Active 2019 Kianna Alvarez MD [address] [facility], [address], [place], [address] , [facility] [employer] 0 22:40:16 Hypothyroi dism 97884710 Active 2019 Toma Alvarado MD [address] [facility], [address], [place], [address] , [facility] [employer] [facility] 0 09:30:52 SARS-CoV-2 Active 2019 SON LEIJA NP [address] [facility], [address], [place], [address] , [facility] [employer] 0 11:35:17 Pain in right knee Active 2020 SON LEIJA NP [address] [facility], [address], [place], [address] , [facility] [employer] 1 13:53:06 Gastroesop hageal reflux disease without esophagiti s 347865011 Active 2020 SON LEIJA NP [address] [facility], [address], [place], [address] , [facility] [employer] [facility] 1 12:16:37 Vitamin deficiency 92059739 Active 2020 SON LEIJA NP [address] [facility], [address], [place], [address] , [facility] [employer] [facility] 1 12:17:06 Pain of left knee region 8985443309237 09 Active 2022 SON LEIJA NP [address] [facility], [address], [place], [address] , [facility] [employer] [facility] 3 13:05:00 Chronic pain 20767781 Active 2023 Kianna Alvarez MD [address] [facility], [address], [place], [address] , [facility] [employer] [facility] 4 11:01:01 Tuberculos is 39319899 Active 2018 Hinamarie Alvarado [facility] 9 10:15:54 Healthcare associated bacterial pneumonia 250529247 Active 2018 Hina Alvarado [facility] 9 10:16:18 Diagnostic pneumomedi astinum Active 2018 Hina Alvarado [facility] 9 10:16:34 Severe protein-ca yobani malnutriti on (Bell: less than 60 percent of standard weight) 961496602 Active 2018 Hina Alvarado [facility] 9 10:17:04 Mediastina l emphysema 23545049 Active 2018 Hina Alvarado [facility] 9 10:17:42 History of malignant neoplasm of ovary 127742074 Active 2018 Hina Alvarado [facility] 9 10:18:05 Mixed anxiety and depressive disorder 843351143 Active 2018 [facility] 9 10:56:15 Problem Notes None recorded. Medical Equipment None Reported. Allergies No known drug allergies Vitals Date Recorded Body height Body temperature Oxygen saturation Oxygen saturation in Arterial blood by Pulse oximetry Heart rate Respiratory rate Systolic blood pressure Diastolic blood pressure Provider Name and Address Organization Details Last Updated DateTime 4 149.86 cm 97.7 [degF] 96 % 96 % 77 /min 18 /min 122 mm[Hg] 70 mm[Hg] [facility] [address] [facility], [address], [place], [address], [facility] 4 10:03:14 Date Recorded Body height Oxygen saturation Oxygen saturation in Arterial blood by Pulse oximetry Body temperature Respiratory rate Heart rate Systolic blood pressure Diastolic blood pressure Provider Name and Address Organization Details Last Updated DateTime 4 149.86 cm 95 % 95 % 97.5 [degF] 20 /min 71 /min 120 mm[Hg] 75 mm[Hg] [facility] [address] [facility], [facility] [address], [place], [address], [facility] 4 14:03:38 Date Recorded Body height Heart rate Respiratory rate Body temperature Oxygen saturation Oxygen saturation in Arterial blood by Pulse oximetry Systolic blood pressure Diastolic blood pressure Provider Name and Address Organization Details Last Updated DateTime 4 149.86 cm 72 /min 18 /min 97.4 [degF] 96 % 96 % 134 mm[Hg] 76 mm[Hg] [facility] [address] [facility], [address], [place], [address], [facility] 4 13:34:43 Date Recorded Body height Heart rate Respiratory rate Body temperature Oxygen saturation Oxygen saturation in Arterial blood by Pulse oximetry Systolic blood pressure Diastolic blood pressure Provider Name and Address Organization Details Last Updated DateTime 4 149.86 cm 75 /min 18 /min 98 [degF] 98 % 98 % 131 mm[Hg] 69 mm[Hg] [facility] [address] [facility], [address], [place], [address], [facility] 4 18:09:49 Date Recorded Body height Heart rate Respiratory rate Body temperature Oxygen saturation Oxygen saturation in Arterial blood by Pulse oximetry Systolic blood pressure Diastolic blood pressure Provider Name and Address Organization Details Last Updated DateTime 4 149.86 cm 68 /min 18 /min 97.1 [degF] 96 % 96 % 134 mm[Hg] 70 mm[Hg] [facility] [address] [facility], [address], [place], [address], [facility] [employer] 4 15:34:38 Social History Question Answer Notes LastModified by Organizat ion Details LastModified Time Tobacco Smoking Status Former Smoker smoked 1.5 ppd, quit many yrs ago Kianna Alvarez MD [address] [facility], [address], [place], [address], [facility] [employer] 08/16/2023 17:37:37 Do You Have An Advance Directive? Yes DNI Otherwise Full Code [id number] Information not available 08/09/2020 What Is Your Level Of Alcohol Consumption? None [id number] Information not available 08/09/2020 How Much Tobacco Do You Chew? None [id number] Information not available 08/09/2020 What Is Your Code Status? DNI Information not available 03/28/2023 Do You Or Have You Ever Used E-cigarettes Or Vape? Never Used Electronic Cigarettes [id number] Information not available 08/09/2020 [facility] Information not available 03/28/2023 Legal Guardian? No Informati on not available 03/28/2023 Do You Have A Medical Power Of Orderly? Yes Not Invoked Information not available 03/28/2023 What Was The Date Of Your Most Recent Tobacco Screening? 08/16/2023 Information not available 08/16/2023 Do You Have An Out Of Hospital DNR? No Information not available 03/28/2023 What Is Your Relationship Status? Information not available 03/28/2023 Do You Or Have You Ever Used Smokeless Tobacco? Never Used Smokeless Tobacco [id number] Information not available 08/09/2020 Do You Use Any Illicit Or Recreational Drugs? No Information not available 03/28/2023 Has Tobacco Cessation Counseling Been Provided? No N/a As Pt. No Longer Smokes Information not available 03/28/2023 How Many Years Have You Smoked Tobacco? 60 [id number] Information not available 08/09/2020 Do You Or Have You Ever Used Any Other Forms Of Tobacco Or Nicotine? No Information not available 03/28/2023 Sex: Unknown Functional Status None recorded. Mental Status None recorded. Family History Relationship Description Onset Age of this Age Resolved Age Notes LastModified by Organization Details LastModified Time Father No current problems or disability [facility] Not available 08/21 09:44:07 Mother No current problems or disability [facility] Not available 08/21 09:44:07 Notes:N/C Medical History No medical history recorded. Gynecological HistoryNo gynecological history recorded. Obstetrics History GPAL:G 0 P 0 0 0 0 Immunizations Vaccine Type Date Status Note Provider Nam e and Address Organization Details Recorded Time Influenza, adjuvanted, quadrivalent, PF 08/27/2022 completed Gbariela gonzalez, [facility] 11/01/2023 11:51:08 Influenza, adjuvanted, quadrivalent, PF 05/20/2023 completed Gabriela gonzalez, [facility] 11/01/2023 11:51:23 Past Encounters Encounter ID Performer Location Encounter Start Date Encounter Closed Date Diagnosis/Indication Diagnosis SNOMED-CT Code Diagnosis ICD10 Code Diagnosis Note [id number] Hina CONTEH [address] [facility] [place] [address] 08/21/2019 09:44:29 09/01/2019 10:32:18 Tuberculosis 13817823 A18.89 continue Isoniazid, Rifampin, Pyrazinami de, Pyridoxine f/u at [facility] clinic on 08/25. Healthcare associated bacterial pneumonia 014750473 Y95 completed abx txcontinue brovana, pulmicort, duonebs scheduled and prn albuterolp ulmo and RT to follow here. 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 Mediastinal emphysema 16 893156 J98.2 pneumomedi astinum related to infection/ bronchosco pyno interventi on neededif resp sx develop will repeat cxr/CT chest Physical deconditioning 8750292307 9102 R68.89 PT/OT eval. [id number] Abhinav Gage MD [facility] [address] [place] [address] 08/24/2019 08:02:58 09/01/2019 10:59:44 Tuberculosis [id number] A15.0 see HPIfollowe d by ID of note in hospital case discussed with dept of public health ID and determined it was safe to take patient off airborne precaution s as she had been treated for > 14 daysf/u with TB clinic [place]cont[place] current Ab courseadd probioticu pdate ID with change in presentati onmonitor respirator y function Healthcare associated bacterial pneumonia [id number] Y95 see HPIcomplet ed vanco and zosynsee above Asthenia 78212221 R53.1 PT OT eval and treatmonit or fall risk Severe protein-calorie malnutrition (Bell: less than 60 percent of standard weight) 028713034 E41 carrying dx from hospitaldi etary evalmonito r weights and PO intake History of malignant neoplasm of ovary 102984814 Z85.43 added to PMH [id number] Nichelle JONES WERO [address] [place] [address] 09/01/2019 07:19:48 09/04/2019 15:23:56 Tuberculosis [id number] A15.0 see HPIfollowe d by ID of note in hospital case discussed with dept of public health ID and determined it was safe to take patient off airborne precaution s as she had been treated for > 14 daysf/u with TB clinic todayconti e current Ab courseprob ioticupdat e ID with change in presentati onmonitor respirator y function Healthcare associated bacterial pneumonia [id number] Y95 see HPIcomplet ed vanco and zosynsee above Asthenia 24931031 R53.1 PT OT eval and treatmonit or fall risk Severe protein-calorie malnutrition (Bell: less than 60 percent of standard weight) 029553420 E41 carrying dx from hospitaldi etary eval pt has gained 2 lbs in the past week according to weekly weight data, has good reported appetite. monitor weights and PO intake [id number] Nichel[address] Do[address] [address] 09/08/2019 07:58:08 09/17/2019 14:56:26 Tuberculosis [id number] A15.0 see HPIfollowe d by ID of note in hospital case discussed with dept of public health ID and determined it was safe to take patient off airborne precaution s as she had been treated for > 14 daysf/u with TB clinic last week, next f/u on 09/15/19Pt continues on current Ab course, unable to find tb clinic notes at this time.probi oticupdate ID with change in presentati onmonitor respirator y function Healthcare associated bacterial pneumonia [id number] Y95 see HPIcomplet ed vanco and zosynsee above Asthenia 07019049 R53.1 PT OT eval and treatmonit or fall risk Severe protein-calorie malnutrition (Bell: less than 60 percent of standard weight) 377521009 E41 carrying dx from hospitaldi etary eval pt has good reported appetite. monitor weights [place] intake [id number] Nichelle CONTEH [address] [place] [address] 09/15/2019 07:35:21 09/23/2019 11:38:11 Tuberculosis [id number] A15.0 see HPIfollowe d by TB clinic of note in hospital case discussed with dept of public health ID and determined it was safe to take patient off airborne precaution s as she had been treated for > 14 days Pt continues on current Ab course,pro biotic Will call tb clinic for update Notify ID/tb clinic with any changes in presentati on monitor respirator y function Healthcare associated bacterial pneumonia [id number] Y95 see HPIcomplet ed vanco and zosynsee above Asthenia 02505902 R53.1 PT OT eval and treatmonit or fall risk Severe protein-calorie malnutrition (Bell: less than 60 percent of standard weight) 729926026 E41 carrying dx from hospitaldi etary eval- pt now on ensures pt has good reported appetite. monitor weights [place] intake [id number] Nichelle CONTEH [address] [place] [address] 09/22/2019 09:39:42 09/29/2019 09:21:51 Tuberculosis [id number] A15.0 see HPIfollowe d by TB clinic of note in hospital case discussed with dept of public health ID and determined it was safe to take patient off airborne precaution s as she had been treated for > 14 days Pt last seen at TB clinic on 09/15/19- to continue with abx regime, they are monitoring hepatic panel, cxr, to f/u in 4 weeks. Notify ID/tb clinic with any changes in presentati on continue O2 orders monitor respirator y function Asthenia 50504059 R53.1 Pt has been DCd from PT- she has reached her baseline, only walking about 30 ft with walker, varies with transfers. monitor fall risk Severe protein-calorie malnutrition (Bell: less than 60 percent of standard weight) 196857250 E41 carrying dx from hospital has lost about 9lbs in the past month pt on ensures tid will increase mirtazapin e to 15mg qd today monitor ?weight loss due to ovarian cancer History of malignant neoplasm of ovary 381314258 Z85.43 added to PMH Per family the pt had one day of treatment for this and then never followed up with this- she refused care. Mixed anxi ety and depressive disorder 853590222 F41.8 will order psych eval today monitor mood [id number] Nichelle CONTEH [address] [place] [address] 09/28/2019 07:22:29 10/01/2019 14:27:45 Tuberculosis [id number] A15.0 see HPI stable. followed by TB clinic of note in hospital case discussed with dept of public health ID and determined it was safe to take patient off airborne precaution s as she had been treated for > 14 days Pt last seen at TB clinic on 09/15/19- to continue with abx regime, they are monitoring hepatic panel, cxr, to f/u in 4 weeks. Notify ID/tb clinic with any changes in presentati on continue O2 orders monitor respirator y function Asthenia [id number] R53.1 Pt has been DCd from PT- she has reached her baseline, only walking about 30 ft with walker, varies with transfers. monitor fall risk Severe protein-calorie malnutrition (Bell: less than 60 percent of standard weight) 068322450 E41 carrying dx from hospital has lost over 10lbs since her admission, however she appears to have leveled out. pt on ensures tid mirtazapin e increased to 15mg qd last week continue to monitor ?weight loss due to ovarian cancer History of malignant neoplasm of ovary 247786049 Z85.43 added to PMH Per family the pt had one day of treatment for this and then never followed up with this- she refused care. Mixed anxi ety and depressive disorder 137686582 F41.8 awaiting psych eval monitor mood [id number] Nichelle CONTEH [address] [place] [address] 10/08/2019 07:24:07 10/12/2019 16:27:09 Tuberculosis [id number] A15.0 see HPI stable. followed by TB clinic of note in hospital case discussed with dept of public health ID and determined it was safe to take patient off airborne precaution s as she had been treated for > 14 days Pt last seen at TB clinic on 09/15/19- to continue with abx regime, they are monitoring hepatic panel, cxr, to f/u in 4 weeks. Notify ID/tb clinic with any changes in presentati on continue O2 orders monitor respirator y function Severe protein-calorie malnutrition (Bell: less than 60 percent of standard weight) 670630119 E41 carrying dx from hospital has lost over 7lbs since her admission, appears to be stable at this time.pt on ensures tid mirtazapin e 15mg qd continue to monitor History of malignant neoplasm of ovary 434870009 Z85.43 added to PMH Per family the pt had one day of treatment for this and then never followed up with this- she refused care. Mixed anxi ety and depressive disorder 799679477 F41.8 pt recently seen by [facility], no consult notes in chart yet monitor mood [id number] Nichelle CONTEH [address] [facility] [place] [address] 10/12/2019 08:06:04 10/16/2019 13:50:57 Tuberculosis [id number] A15.0 see HPI stable. followed by TB clinic of note in hospital case discussed with dept of public health ID and determined it was safe to take patient off airborne precaution s as she had been treated for > 14 days Pt last seen at TB clinic on 09/15/19- to continue with abx regime, they are monitoring hepatic panel, cxr, to f/u in 4 weeks. Notify ID/tb clinic with any changes in presentati on continue O2 orders will schedule zofran qd at 5am in preparatio n for her morning meds as she frequently has associated nausea. monitor respirator y function Severe protein-calorie malnutrition (Bell: less than 60 percent of standard weight) 185805182 E41 carrying dx from hospital pt on ensures tid mirtazapin e 15mg qd pt had initially lost weight, now improving continue to monitor Mixed anxi ety and depressive disorder 357003818 F41.8 pt recently seen by [facility], awaiting consult notes. monitor mood History of malignant neoplasm of ovary 291960490 Z85.43 added to PMH Per family the pt had one day of treatment for this and then never followed up with this- she refused care. [id number] Nichelle CONTEH [address] [facility] [place] [address] 10/19/2019 08:10:14 10/22/2019 14:29:13 Tuberculosis [id number] A15.0 see HPI stable. followed by TB clinic of note in hospital case discussed with dept of public health ID and determined it was safe to take patient off airborne precaution s as she had been treated for > 14 days Pt last seen at TB clinic on 09/15/19- to continue with abx regime, they are monitoring hepatic panel, cxr, to f/u on 10/27/2019 Notify ID/tb clinic with any changes in presentati on continue O2 orders zofran scheduled at 5am in preparatio n for her morning meds as she frequently has associated nausea. Pt on budesonide and arformoter ol nebulizers scheduled bid albuterol- ipratropiu m nebulizer qid- will change to PRN monitor respirator y function Severe protein-calorie malnutrition (Bell: less than 60 percent of standard weight) 052119680 E41 carrying dx from hospital pt on ensures tid mirtazapin e 15mg qd pt had initially lost weight, now improving continue to monitor Mixed anxi ety and depressive disorder 079300793 F41.8 mirtazapin e 15mg qd monitor mood psych following History of malignant neoplasm of ovary 816240001 Z85.43 added to PMH Per family the pt had one day of treatment for this and then never followed up with this- she refused care. [id number] MD KAREN Cooper [address] [facility] [place] [place] [address] 11/18/2019 15:07:44 11/22/2019 15:31:49 Tuberculosis [id number] A15.0 followed by ID f/u with TB clinic [place] current Ab courseupda te ID with change in presentati onmonitor respirator y functioncu rrently stable at baseline Nausea and vomiting 1692 1999 R11.2 appears secondary to medication administra tijaki have patient take zofran priormonit or for sx control [id number] Nichelle JONES [address] [place] [address] [place] [address] 12/01/2019 12:14:48 12/11/2019 14:40:43 Tuberculosis [id number] A15.0 followed by ID seen by tb clinic on 11/13/2019 completed abx course of ethambutol and pyrazinami de- now DCd pt continues on isoniazid and pyridoxine . f/u with TB clinic in place for 4 weeksupdat e ID with change in presentati onmonitor respirator y functioncu rrently stable at baseline Nausea and vomiting 1692 1999 R11.2 continues with zofran q6h prn monitor for sx control Severe protein-calorie malnutrition (Bell: less than 60 percent of standard weight) 658355542 E41 carrying dx from hospital pt on ensures tid mirtazapin e 15mg qd pt continues to have weight loss recent DC of abx as above may be helpful, as these were likely causing her some nausea continue to monitor weights bi-weekly for 4 weeks Mixed anxi ety and depressive disorder 259379727 F41.8 mirtazapin e 15mg qd monitor mood psych following History of malignant neoplasm of ovary 856688867 Z85.43 added to PMH Per family the pt had one day of treatment for this and then never followed up with this- she refused care. [id number] Nichelle CONTEH [address] [place] [address] [place] [address] 12/29/2019 12:37:57 01/01/2020 15:52:34 Cough 06679864 R05 With associated chills, fatigue, body aches. Will check for flu and resp viral panel, cbc/cmp of note there is a resident on the floor +for flu A encourage fluids supportive care continue to monitor [id number] Nichelle JONES WERO [address] [place] [address] [place] [address] 01/15/2020 14:07:52 01/21/2020 13:07:58 Tuberculosis [id number] A15.0 followed by ID continues on multiple tb meds f/u with TB clinic in place for 01/25update ID with change in presentati on pt on arformoter ol, albuterol, budesonide and duoneb nebulizers - will switch to: combivent (to replace the ipratropiu m and albuterol) and symbicort (to replace budesonide and laba). also add proair with spacer q4h prn. will eventually need pulmonary eval, likely to get after covid crisis improves and f/u consults are able to be made. in the meantime will follow with tb clinic as able. monitor respirator y function Resp therapist on site prn currently stable at baseline [id number] MD KAREN Pope [address] [place] [address] [place] [address] 01/22/2020 17:32:59 01/28/2020 18:46:52 Tuberculosis 02585020 A15.0 She is on ethambutol 800 mg qd, isoniazid 300 mg qd and pyrazinami de 1000 mg qd.F/U with TB clinic in place for 01/25, will likely be reschedule d due to COVID-19. Nebs all transition ed to inhalers, now on combivent QID, symbicort 80/4.5 two puffs BID and proair with spacer q 4h prn.Contin ue O2 prn to maintain sats >90% Monitor respirator y function F/U with resp therapist and pulmonary as able. Nausea and vomiting 1692 1999 R11.2 Sxs continue intermitte ntly, now that back on Tb meds. Continue with zofran q 6 hrs prn Monitor for sx control Severe protein-calorie malnutrition (Bell: less than 60 percent of standard weight) 325495780 E41 She has lost 20# since here. BMI still in nl. range. Was given this dx in the hospital. Continue ensure TID and mirtazapin e 15 mg qd Continue to monitor weights Mixed anxi ety and depressive disorder 965546097 F41.8 Mood good today. Continue mirtazapin e 15 mg qd. monitor mood Follow with NEG as able. History of malignant neoplasm of ovary 426249463 Z85.43 Hx of. Had DYLLAN/BSO Per family the pt had one day of treatment for this and then never followed up with this- she refused care. Chronic ob structive pulmonary disease 03688381 J43.8 Likely with underlying COPD. Continue meds as above. Will need full PFTs when able. [id number] KEILA BRASHER [address] [place] [address] 03/18/2020 09:19:47 03/22/2020 10:40:26 Chronic obstructive pulmonary disease 06956935 J44.9 monitor for any sob, O2 if needed Mixed anxi ety and depressive disorder 421589172 F41.8 Continue mirtazapin e 15 mg qd. monitor mood Follow with NEG as able. Severe protein-calorie malnutrition (Bell: less than 60 percent of standard weight) 521411638 E43 Continue ensure TID and mirtazapin e 15 mg qd Continue to monitor weights Tuberculosis 97575931 A1 8.89 continue ethambutol 800 mg qd, isoniazid 300 mg qd and pyrazinami de 1000 mg qd Nebs all transition ed to inhalers, now on combivent QID, symbicort 80/4.5 two puffs BID and proair with spacer q 4h prn. Continue O2 prn to maintain sats >90% Monitor respirator y function F/U with resp therapist and pulmonary as able. [id number] KEILA BRASHER [address] [place] [address] 04/11/2020 10:32:37 04/19/2020 15:35:04 Mixed anxiety and depressive disorder 383544564 F41.8 Continue mirtazapin e 15 mg qd. monitor mood Follow with NEG as able. [id number] MD KAREN Morales [address] [place] [address] 05/20/2020 06:57:19 05/24/2020 10:36:19 Chronic obstructive pulmonary disease 89405021 J44.9 Symbicort 4.5-80: 2 puffs bidCombive nt respimat 20-100: one puff tidalbuter ol HFA 1 puff q4h prn will monitor History of malignant neoplasm of ovary 222420319 Z85.43 s/p DYLLAN, SBO; has refused further treatment Mixed anxi ety and depressive disorder 392273773 F41.8 mirtazapin e 15 mg at [facility] monitor Tuberculosis 48567027 A1 8.89 fu [facility] Hypothyroidism 10553863 E03.8 levothyrox ine 75 mcg dailywill monitor [id number] KEILA BRASHER [address] [place] [address] 5 07/13/2020 10:24:49 07/15/2020 14:24:57 Chronic obstructive pulmonary disease 49913375 J44.9 monitor for any sob, O2 if needed symbicort 80/4.5 q12 hr combivent 20/100 tid flonase daily Healthcare associated bacterial pneumonia 318991824 J15.9 recovered Hypothyroidism 33911080 E03.9 levothyrox ine 75 mcg daily will monitor 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 monitor mood Follow with NEG as able. Tuberculosis 29221673 A1 8.89 combivent tid, symbicort 80/4.5 two puffs BID proair with spacer q 4h prn. Continue O2 prn to maintain sats >90% Monitor respirator y function F/U with resp therapist and pulmonary as able. Severe protein-calorie malnutrition (Bell: less than 60 percent of standard weight) 452847544 E43 ensure TID and mirtazapin e 15 mg qd thiamine 100 mg daily B6 100 daily Continue to monitor weights [id number] KEILA BRASHER [address] [place] [phone] 5 08/23/2020 11:08:00 08/25/2020 13:34:50 Chronic obstructive pulmonary disease 78652361 J44.9 monitor for any sob, O2 if needed symbicort 80/4.5 q12 hr combivent 20/100 tid flonase daily SARS-CoV-2 646102175 U07 .1 encourage po intake O2 prn consider IVF if she becomes anorexic [id number] SON LEIJA NP [facility] [address] [place] [address] 08/29/2020 12:18:09 08/31/2020 15:39:28 Chronic obstructive pulmonary disease 73061784 J44.9 monitor for any sob, O2 if needed symbicort 80/4.5 q12 hr combivent 20/100 tid flonase daily loratadine 10mg daily Healthcare associated bacterial pneumonia 979969370 J15.9 recovered History of malignant neoplasm of ovary 391831392 Z85.43 DYLLAN SBO no further treatment Hypothyroidism 67239837 E03.9 levothyrox ine 75 mcg daily will monitor Mediastinal emphysema 16 758658 J98.2 2019 pneumomedi astinum related to infection/ bronchosco py no interventi on needed if resp sx develop will repeat cxr/CT chest Mixed anxi ety and depressive disorder 576202278 F41.8 mirtazapin e 15 mg qd. monitor mood Follow with NEG as able. SARS-CoV-2 268333900 U07 .1 encourage po intake O2 prn consider IVF if she becomes anorexic Severe protein-calorie malnutrition (Bell: less than 60 percent of standard weight) 057197082 E43 ensure TID and mirtazapin e 15 mg qd thiamine 100 mg daily B6 100 daily Continue to monitor weights Tuberculosis 67850248 A1 8.89 combivent tid, symbicort 80/4.5 two puffs BID proair with spacer q 4h prn. Continue O2 prn to maintain sats >90% Monitor respirator y function F/U with resp therapist and pulmonary as able. [id number] SON LEIJA NP [facility] [address] [place] [phone] 5 08/30/2020 08:12:16 09/02/2020 10:34:19 SARS-CoV-2 818517949 U07.1 encourage po intake O2 prn consider IVF if she becomes anorexic [id number] SON LEIJA NP [address] [address] 5 08/31/2020 11:03:06 09/02/2020 11:07:24 SARS-CoV-2 708560049 U07.1 11/3, 08/23 positive encourage po intake O2 prn consider IVF if she becomes anorexic [id number] SON LEIJA NP [address] [address] 5 09/01/2020 09:30:51 09/06/2020 10:25:57 SARS-CoV-2 193011986 U07.1 08/16, 08/23 positive encourage po intake O2 prn consider IVF if she becomes anorexic [id number] SON LEIJA NP [address] [address] 5 09/02/2020 12:59:16 09/06/2020 10:40:27 SARS-CoV-2 737177300 U07.1 08/16, 08/23 positive, 08/29 negative encourage po intake O2 prn consider IVF if she becomes anorexic [id number] Toma Alvarado MD [address] [address] 09/23/2020 06:10:55 09/27/2020 11:42:12 Chronic obstructive pulmonary disease 31451974 J41.0 Advair 250-50: one puff bidCombive nt Respimat 20-100: one puff tidalbuter ol HFA 1 puff q4h prn will monitor History of malignant neoplasm of ovary 822799229 Z85.43 s/p DYLLAN, SBO; has refused further treatment Hypothyroidism 71313598 E03.8 levothyrox ine 75 mcg dailywill monitor Mixed anxi ety and depressive disorder 912992288 F41.8 mirtazapin e 15 mg at [facility] monitor SARS-CoV-2 173544701 U07 .1 recoveredw ill continue to monitor [id number] SON LEIJA NP [address] [address] 11/15/2020 13:47:46 11/16/2020 14:55:19 Chronic obstructive pulmonary disease 25516973 J44.9 monitor for any sob, O2 if needed advair 250/50 daily combivent 20/100 tid flonase daily albuterol prn loratadine 10mg daily Healthcare associated bacterial pneumonia 628288859 J15.9 recovered History of malignant neoplasm of ovary 856420437 Z85.43 DYLLAN SBO no further treatment Hypothyroidism 91968047 E03.9 levothyrox ine 75 mcg daily will monitor Mediastinal emphysema 16 812373 J98.2 2019 pneumomedi astinum related to infection/ bronchosco py no interventi on needed if resp sx develop will repeat cxr/CT chest Mixed anxi ety and depressive disorder 829839446 F41.8 mirtazapin e 15 mg qd. monitor mood Follow with NEG as able. SARS-CoV-2 670426310 U07 .1 recovered 08/16, 08/23 positive, 08/29 negative encourage po intake O2 prn consider IVF if she becomes anorexic Severe protein-calorie malnutrition (Bell: less than 60 percent of standard weight) 205254208 E43 ensure TID and mirtazapin e 15 mg qd thiamine 100 mg daily B6 100 daily Continue to monitor weights Tuberculosis 34557515 A1 8.89 combivent tid, advair daily proair with spacer q 4h prn. Continue O2 prn to maintain sats >90% Monitor respirator y function F/U with resp therapist and pulmonary as able. Pain in right knee 19102 36590 95596 M25.561 lidoderm patch right kneediclof enac gel bidtylenol 650 mg q6hr prn [id number] Toma Alvarado MD [address] [address] 01/06/2021 07:13:09 01/10/2021 10:35:09 Chronic obstructive pulmonary disease 51251089 J41.0 Advair 250-50: one puff bidCombive nt Respimat 20-100: one puff tidalbuter ol HFA 1 puff q4h prn will monitor History of malignant neoplasm of ovary 112582384 Z85.43 s/p DYLLAN, SBO; has refused further treatment Hypothyroidism 89577808 E03.8 levothyrox ine 75 mcg dailywill monitor Mixed anxi ety and depressive disorder 741415373 F41.8 mirtazapin e 15 mg at hswill monitor SARS-CoV-2 496450078 U07 .1 diagnosed 09/02 recovered will continue to monitor [id number] [facility] [address] [place] [phone] 5 03/01/2021 08:04:33 03/03/2021 13:38:48 Chronic obstructive pulmonary disease 27239315 J44.9 monitor for any sob, O2 if needed advair 250/50 bid combivent 20/100 tid flonase daily albuterol prn loratadine 10mg daily History of malignant neoplasm of ovary 315779152 Z85.43 DYLLAN SBO no further treatment Hypothyroidism 33766709 E03.9 levothyrox ine 75 mcg daily will monitor Mediastinal emphysema 16 642401 J98.2 2019 pneumomedi astinum related to infection/ bronchosco py no interventi on needed if resp sx develop will repeat cxr/CT chest Mixed anxi ety and depressive disorder 054292015 F41.8 mirtazapin e 15 mg qd. monitor mood Follow with NEG as able. Pain in right knee 75918 29988 16757 M25.561 lidoderm patch right kneediclof enac gel bidtylenol 650 mg q6hr prn Severe protein-calorie malnutrition (Bell: less than 60 percent of standard weight) 256368732 E43 ensure TID mirtazapin e 15 mg qd thiamine 100 mg daily B6 100 daily Continue to monitor weights Tuberculosis 73369454 A1 8.89 combivent tid, advair 250/50 bid proair with spacer q 4h prn. Continue O2 prn to maintain sats >90% Monitor respirator y function F/U with resp therapist and pulmonary as able. [id number] Toma Alvarado MD [address] [place] [address] 04/21/2021 06:57:11 05/02/2021 14:03:31 Chronic obstructive pulmonary disease 56192544 J41.0 Advair 250-50: one puff bidCombive nt Respimat 20-100: one puff tidalbuter ol HFA 1 puff q4h prnwill monitor History of malignant neoplasm of ovary 019466939 Z85.43 s/p DYLLAN, SBOhas refused further treatment Hypothyroidism 94704202 E03.8 levothyrox ine 75 mcg dailywill monitor Mixed anxi ety and depressive disorder 033354254 F41.8 mirtazapin e 15 mg at hswill monitor SARS-CoV-2 160630968 U07 .1 diagnosed 09/02 recovered will continue to monitor Gastroesop hageal reflux disease without esophagitis 599773483 K21.9 famotidine 20 mg at hswill monitor Acute conjunctivitis 537 91205 H10.011 improvingc omplete course of polytrim solutionwi ll monitor [id number] SON LEIJA NP [address] [address] 06/14/2021 11:54:10 06/16/2021 10:06:14 Chronic obstructive pulmonary disease 17806591 J41.0 monitor for any sob, O2 if needed advair 250/50 bid combivent 20/100 tid flonase daily albuterol prn loratadine 10mg daily Hypothyroidism 17225192 E03.8 levothyrox ine 75 mcg daily will monitor Mixed anxi ety and depressive disorder 056550898 F41.8 mirtazapin e 15 mg qd. monitor mood Follow with NEG as able. Pain in right knee 07167 02018 63962 M25.561 lidoderm patch right kneediclof enac gel bidtylenol 650 mg q6hr prn Tuberculosis 09014407 A1 8.89 combivent tid, advair 250/50 bid proair with spacer q 4h prn. O2 prn to maintain sats >90% Monitor respirator y function F/U with resp therapist and pulmonary as able. Gastroesop hageal reflux disease without esophagitis 381700156 K21.9 pepcid 20 mg daily Vitamin deficiency 42030 002 E56.9 mvi dailythiam ine 100 mg dailyB6 daily [id number] Toma Alvarado MD [address] [address] 5 08/23/2021 06:02:03 08/25/2021 11:44:21 Chronic obstructive pulmonary disease 11877686 J41.0 Advair 250-50: one puff bidCombive nt Respimat 20-100: one puff tidalbuter ol HFA 1 puff q4h prnwill monitor Gastroesop hageal reflux disease without esophagitis 736959705 K21.9 famotidine 20 mg at hswill monitor Hypothyroidism 50175979 E03.8 levothyrox ine 75 mcg dailywill monitor History of malignant neoplasm of ovary 461166682 Z85.43 s/p DYLLAN, SBOhas refused further treatment Mixed anxi ety and depressive disorder 512082546 F41.8 mirtazapin e 15 mg at hswill monitor Vitamin deficiency 44924 002 E56.8 pyridoxine 100 mg dailythiam ine 100 mg dailyMVI dailywill monitor Osteoarthritis 099361607 M17.11 APAP 650 mg q6h prndiclofe nac topical gel to right knee prnBengay cream to right knee q8h prnlidocai ne patch 4% to right knee dailywill monitor [id number] SON LEIJA NP [address] [address] 10/19/2021 12:58:57 10/24/2021 11:46:50 Chronic obstructive pulmonary disease 09146696 J41.0 monitor for any sob, O2 if needed advair 250/50 bid combivent 20/100 tid flonase daily albuterol prn loratadine 10mg daily Hypothyroidism 78736879 E03.8 levothyrox ine 75 mcg daily will monitor Mixed anxi ety and depressive disorder 718978420 F41.8 mirtazapin e 15 mg qd. monitor mood Follow with NEG as able. Pain in right knee 27335 91173 74004 M25.561 lidoderm patch right kneediclof enac gel bidtylenol 650 mg q6hr prn Tuberculosis 12623239 A1 8.89 combivent tid, advair 250/50 bid proair with spacer q 4h prn. O2 prn to maintain sats >90% Monitor respirator y function F/U with resp therapist and pulmonary as able. Gastroesop hageal reflux disease without esophagitis 498296421 K21.9 pepcid 20 mg daily Vitamin deficiency 83330 002 E56.9 mvi dailythiam ine 100 mg dailyB6 daily [id number] SON LEIJA NP [address] [address] 11/09/2021 09:05:30 11/15/2021 08:55:12 Chronic obstructive pulmonary disease 76981775 J41.0 monitor for any sob, O2 if needed advair 250/50 bid combivent 20/100 tid flonase daily albuterol prn loratadine 10mg daily Pain in right knee 39685 21436 10855 M25.561 lidoderm patch right kneediclof enac gel bidtylenol 650 mg q6hr prn [id number] SON LEIJA NP [address] [address] 11/10/2021 10:03:11 11/15/2021 10:48:07 SARS-CoV-2 516529240 U07.1 11/08 covid positive, asymptomat icPatient covid positiveco ntinue supportive caremonito r PO intake and need for supplement al [id number] need for adjuvent therapyto ED for acute decompensa tion [id number] SON LEIJA NP [address] [address] 11/13/2021 12:31:35 11/15/2021 11:47:51 SARS-CoV-2 847215240 U07.1 11/08 covid positive, asymptomat ic-recover ed by Rhonda blakely covid positive continue supportive care monitor PO intake and need for supplement al O2 monitor need for adjuvent therapy to ED for acute decompensa tion [id number] Toma Alvarado MD [address] [address] 5 12/22/2021 07:56:46 12/27/2021 16:02:07 Chronic obstructive pulmonary disease 38360168 J41.0 Advair 250-50: one puff bidCombive nt Respimat 20-100: one puff tidalbuter ol HFA 1 puff q4h prnwill monitor Gastroesop hageal reflux disease without esophagitis 730599195 K21.9 famotidine 20 mg at hswill monitor Hypothyroidism 34705297 E03.8 levothyrox ine 75 mcg dailywill monitor Mixed anxi ety and depressive disorder 308070171 F41.8 mirtazapin e 15 mg at hswill monitor SARS-CoV-2 689008115 U07 .1 tested positive 11/08/21asy mptomatic coursereco shelli will continue to monitor [id number] SON LEIJA NP [address] [address] 01/19/2022 08:44:18 01/23/2022 11:01:49 Chronic obstructive pulmonary disease 36190109 J41.0 monitor for any sob, O2 if needed advair 250/50 bid combivent 20/100 tid flonase daily albuterol prn loratadine 10mg daily Hypothyroidism 64687488 E03.8 levothyrox ine 75 mcg daily will monitor Mixed anxi ety and depressive disorder 875658820 F41.8 mirtazapin e 15 mg qd. monitor mood Follow with NEG as able. Pain in right knee 25221 69282 36817 M25.561 lidoderm patch right kneediclof enac gel bidtylenol 650 mg q6hr prn Tuberculosis 38711354 A1 8.89 combivent tid, advair 250/50 bid proair with spacer q 4h prn. O2 prn to maintain sats >90% Monitor respirator y function F/U with resp therapist and pulmonary as able. Gastroesop hageal reflux disease without esophagitis 731307996 K21.9 pepcid 20 mg daily Vitamin deficiency 32923 002 E56.9 mvi dailythiam ine 100 mg dailyB6 daily [id number] KEILA BRASHER [address] [place] [address] 5 02/16/2022 11:50:24 02/20/2022 12:03:24 Chronic obstructive pulmonary disease 28273451 J41.0 monitor for any sob, O2 if needed advair 250/50 bid combivent 20/100 tid flonase daily albuterol prn loratadine 10mg daily Hypothyroidism 95876697 E03.8 levothyrox ine 75 mcg daily will monitor Mixed anxi ety and depressive disorder 244331871 F41.8 mirtazapin e 15 mg qd. monitor mood Follow with NEG as able. Pain in right knee 63885 65608 47011 M25.561 lidoderm patch right kneediclof enac gel bidtylenol 650 mg q6hr prn Tuberculosis 50664705 A1 8.89 combivent tid, advair 250/50 bid proair with spacer q 4h prn. O2 prn to maintain sats >90% Monitor respirator y function F/U with resp therapist and pulmonary as able. Gastroesop hageal reflux disease without esophagitis 993657734 K21.9 pepcid 20 mg daily Vitamin deficiency 88861 002 E56.9 mvi dailythiam ine 100 mg dailyB6 daily [id number] CHASE Eduardo [address] [address] 03/08/2022 11:23:24 03/13/2022 16:32:13 Cellulitis of finger of right hand 5589069557 4623188 L03.011 bacitracin cream apply qd till healedmoni tor. [id number] Toma Alvarado MD [address] [address] 03/30/2022 08:39:42 04/03/2022 11:43:48 Chronic obstructive pulmonary disease 94731954 J41.0 Advair 250-50: one puff bidCombive nt Respimat 20-100: one puff tidalbuter ol HFA 1 puff q4h prnwill monitor Gastroesop hageal reflux disease without esophagitis 008490531 K21.9 famotidine 20 mg at hswill monitor Hypothyroidism 60223833 E03.8 levothyrox ine 75 mcg dailywill monitor Mixed anxi ety and depressive disorder 112902754 F41.8 mirtazapin e 15 mg at hswill monitor Vitamin deficiency 24769 002 E56.9 pyridoxine 100 mg dailythiam ine 100 mg dailyMVI dailywill monitor Osteoarthritis 658832068 M17.11 APAP 650 mg q6h prndiclofe nac topical gel to right knee bid prnBengay cream to right knee q8h prnlidocai ne patch 4% to right knee dailywill monitor [id number] SON LEIJA NP [address] [address] 05/23/2022 13:08:08 05/29/2022 16:22:19 Chronic obstructive pulmonary disease 51480034 J41.0 Advair 250-50: one puff bidCombive nt Respimat 20-100: one puff tidalbuter ol HFA 1 puff q4h prnwill monitor Gastroesop hageal reflux disease without esophagitis 177229508 K21.9 famotidine 20 mg at hswill monitor Hypothyroidism 25113220 E03.8 levothyrox ine 75 mcg dailywill monitor Mixed anxi ety and depressive disorder 469526193 F41.8 mirtazapin e 15 mg at hswill monitor Vitamin deficiency 45636 002 E56.9 pyridoxine 100 mg dailythiam ine 100 mg dailyMVI dailywill monitor Osteoarthritis 963617188 M17.11 APAP 650 mg q6h prndiclofe nac topical gel to right knee bid prnBengay cream to right knee q8h prnlidocai ne patch 4% to right knee dailywill monitor Tuberculosis 97949259 A1 8.89 combivent tid, advair 250/50 bid proair with spacer q 4h prn. O2 prn to maintain sats >90% Monitor respirator y function F/U with resp therapist and pulmonary as able. [id number] MD KAREN Morales [address] [place] [phone] 5 07/13/2022 07:10:41 07/17/2022 14:08:46 Chronic obstructive pulmonary disease 70205695 J41.0 Advair 250-50: one puff bidCombive nt Respimat 20-100: one puff tidalbuter ol HFA 1 puff q4h prnwill monitor Hypothyroidism 25500566 E03.8 levothyrox ine 75 mcg dailywill monitor Mixed anxi ety and depressive disorder 319557701 F41.8 mirtazapin e 15 mg at hswill monitor Gastroesop hageal reflux disease without esophagitis 375201074 K21.9 famotidine 20 mg at hswill monitor History of malignant neoplasm of ovary 729501651 Z85.43 s/p DYLLAN, SBOhas refused further treatment [id number] KEILA BRASHER [facility] [address] [place] [address] 5 09/05/2022 17:06:29 09/11/2022 14:11:08 Chronic obstructive pulmonary disease 92476589 J41.0 Advair 250-50: one puff bidCombive nt Respimat 20-100: one puff tidalbuter ol HFA 1 puff q4h prnwill monitor Hypothyroidism 98035028 E03.8 levothyrox ine 75 mcg dailywill monitor Mixed anxi ety and depressive disorder 218370008 F41.8 mirtazapin e 15 mg at hswill monitor Gastroesop hageal reflux disease without esophagitis 210308327 K21.9 famotidine 20 mg at hswill monitor Tuberculosis 17169146 A1 8.89 combivent tid, advair 250/50 bid proair with spacer q 4h prn. O2 prn to maintain sats >90% Monitor respirator y function F/U with resp therapist and pulmonary as able. Toma Alvarado MD [address] [address] 12/07/2022 10:38:11 12/11/2022 08:03:41 Chronic obstructive pulmonary disease 24580212 J41.0 Advair 250-50: one puff bidCombive nt Respimat 20-100: one puff tidalbuter ol HFA 1 puff q4h prnwill monitor Mixed anxi ety and depressive disorder 352252944 F41.8 mirtazapin e 15 mg at hswill monitor Gastroesop hageal reflux disease without esophagitis 906532803 K21.9 famotidine 20 mg at hswill monitor Hypothyroidism 33156095 E03.8 levothyrox ine 75 mcg dailywill monitor Chronic pain 78848008 G8 9.29 diclofenac gel to right knee bid prnlidocai ne patch to right knee dailyAPAP 650 mg q6h prnwill monitor [id number] SON LEIJA NP [address] [address] 5 01/28/2023 14:21:07 01/31/2023 15:22:09 Chronic obstructive pulmonary disease 15297600 J41.0 Advair 250-50: one puff bidCombive nt Respimat 20-100: one puff tidalbuter ol HFA 1 puff q4h prnwill monitor Mixed anxi ety and depressive disorder 772673016 F41.8 mirtazapin e 15 mg at hswill monitor Gastroesop hageal reflux disease without esophagitis 524280804 K21.9 famotidine 20 mg at hswill monitor Hypothyroidism 19314314 E03.8 levothyrox ine 75 mcg dailywill monitor Chronic pain 11805834 G8 9.29 diclofenac gel to right knee bid prnlidocai ne patch to right knee dailyAPAP 650 mg q6h prnwill monitor [id number] KEILA BRASHER [address] [address] 5 02/15/2023 13:27:41 02/20/2023 16:52:34 Chronic obstructive pulmonary disease 34133614 J41.0 Advair 250-50: one puff bidCombive nt Respimat 20-100: one puff tidalbuter ol HFA 1 puff q4h prnwill monitor Mixed anxi ety and depressive disorder 399730858 F41.8 mirtazapin e 15 mg at hswill monitor Gastroesop hageal reflux disease without esophagitis 584150487 K21.9 famotidine 20 mg at hswill monitor Hypothyroidism 48268117 E03.8 levothyrox ine 75 mcg dailywill monitor Chronic pain 83955305 G8 9.29 diclofenac gel to right knee bid prnlidocai ne patch to right knee dailyAPAP 650 mg q6h prnwill monitor Vitamin deficiency 21589 002 E56.9 pyridoxine 100 mg dailythiam ine 100 mg dailyMVI dailywill monitor [id number] MD KAREN Pope [facility] [address] [place] [address] 5 03/28/2023 13:20:05 04/11/2023 13:24:13 Chronic obstructive pulmonary disease 69860211 J41.0 No current sxs.Contin ue Advair 250/50 BID, Combivent Respimat 1 puff TID and albuterol HFA 1 puff q 4 hrs prnMonitor resp. status. Mixed anxi ety and depressive disorder 444700819 F41.8 Mood good today.Cont inue mirtazapin e 15 mg at hsMonitor moodPsych follows, no GDR recommende d. Gastroesop hageal reflux disease without esophagitis 118748913 K21.9 Under good controlCon tinue famotidine 20 mg at hsMonitor for sxs Hypothyroidism 01675462 E03.8 Last TSH 02/2021 was WNLContinu e levothyrox ine 75 mcg dailyMonit or TSH yearly, will order with next labs. Chronic pain 86722476 G8 9.29 She says pain is adequately controlled .Continue diclofenac gel to right knee BID prn, lidocaine patch to right knee daily and APAP 650 mg q 6 hrs prnMonitor sxs. Vitamin deficiency 83647 002 E56.8 Continue pyridoxine 100 mg daily, thiamine 100 mg daily, and MVI dailyNo monitoring needed. [id number] KEILA BRASHER [address] [place] [phone] 5 04/05/2023 13:30:53 04/11/2023 13:56:07 Chronic obstructive pulmonary disease 87853118 J41.0 Advair 250-50: one puff bidCombive nt Respimat 20-100: one puff tidalbuter ol HFA 1 puff q4h prnwill monitor Mixed anxi ety and depressive disorder 070611997 F41.8 mirtazapin e 15 mg at hswill monitor [id number] KEILA BRASHER [facility] [address] [place] [address] 5 05/17/2023 10:17:44 05/21/2023 16:07:38 Chronic obstructive pulmonary disease 98039562 J41.0 Advair 250-50: one puff bidCombive nt Respimat 20-100: one puff tidalbuter ol HFA 1 puff q4h prnwill monitor Mixed anxi ety and depressive disorder 252301574 F41.8 mirtazapin e 15 mg at hswill monitor Gastroesop hageal reflux disease without esophagitis 945700326 K21.9 famotidine 20 mg at hswill monitor Hypothyroidism 18331207 E03.8 levothyrox ine 75 mcg dailywill monitor Chronic pain 93626708 G8 9.29 diclofenac gel to right knee bid prnlidocai ne patch to right knee dailyAPAP 650 mg q6h prnwill monitor Vitamin deficiency 18030 002 E56.9 pyridoxine 100 mg dailythiam ine 100 mg dailyMVI dailywill monitor [id number] KEILA BRASHER [address] [place] [address] 5 07/08/2023 13:04:17 07/09/2023 20:04:53 Pain of left knee region 1461905618 76855 M25.562 tylenol prnxray of left kneePT OT eval and treat prn [id number] MD KAREN Pope [facility] [address] [place] [address] [place] [address] 5 08/16/2023 13:59:50 08/20/2023 11:12:11 Pain of left knee region 7041345271 83795 M25.562 Says it's much better.Con tinue diclofenac gel 4 gms BID and APAP 650 mg q 6 hrs prn.Monito r sxs. Chronic ob structive pulmonary disease 42793935 J41.0 Continues at mild baseline.C ontinue Advair 250/50 BID, Combivent Respimat 1 puff TID and albuterol HFA 1 puff q 4 hrs prnMonitor resp. status. Mixed anxi ety and depressive disorder 568873842 F41.8 Mood remains good at most times.Cont inue mirtazapin e 15 mg qhsMonitor moodPsych continues to follow intermitte ntly, no GDR recommende d. Gastroesop hageal reflux disease without esophagitis [id number] K21.9 No current sxs.Contin ue famotidine 20 mg qhsMonitor for sxs Hypothyroidism 37703264 E03.8 Last TSH was in ont inue levothyrox ine 75 mcg dailyMonit or TSH yearly, will order with next labs. Chronic pain 80998621 G8 9.29 As above.Also gets lidocaine patch to right knee daily.Elsy tor [id number] KEILA BRASHER [address] [place] [address] [place] [address] 10/09/2023 13:25:53 10/22/2023 10:00:48 Chronic obstructive pulmonary disease 53048189 J41.0 Advair 250-50: one puff bidCombive nt Respimat 20-100: one puff tidalbuter ol HFA 1 puff q4h prnwill monitor Mixed anxi ety and depressive disorder 362364587 F41.8 mirtazapin e 15 mg at hswill monitor Gastroesop hageal reflux disease without esophagitis 573415123 K21.9 famotidine 20 mg at hswill monitor Hypothyroidism 06044801 E03.8 levothyrox ine 75 mcg dailywill monitor Chronic pain 19027651 G8 9.29 diclofenac gel to right knee bid prnlidocai ne patch to right knee dailyAPAP 650 mg q6h prnwill monitor Vitamin deficiency 70070 002 E56.9 pyridoxine 100 mg dailythiam ine 100 mg dailyMVI dailywill monitor [id number] [facility] [address] [address] 10/23/2023 11:46:55 10/30/2023 12:50:00 Contact dermatitis 87467526 L25.9 see hpihydroco rtisone 1% bid for 5 days and re evalPatien t encouraged to avoid scratching or touching affected areanursin g to offer prn tylenol for discomfort . [id number] Kianna Alvarez MD [facility] [address] [place] [address] 12/10/2023 16:27:11 01/13/2024 15:10:49 Pain of left knee region [id number] 97417 M25.562 Continues to do well with diclofenac gel 4 gms BID and APAP 650 mg q 6 hrs prn.Monito r sxs. Chronic ob structive pulmonary disease 14982406 J43.8 No recent exacerbati ons.Contin ue Advair 250/50 BID, Combivent Respimat 1 puff TID and albuterol HFA 1 puff q 4 hrs prnMonitor resp. status. 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 Gastroesop hageal reflux disease without esophagitis 592809284 K21.9 No current sxs.Contin ue famotidine 20 mg qhsMonitor for sxs Hypothyroidism 39162775 E03.8 Last TSH in 08/2023 was sl. low at 0.17, no FT4 checked and no recheck done.Mandi nue levothyrox ine 75 mcg qd for nowRecheck TSH with FT4. Chronic pain 68071051 G8 9.29 As above.Also gets lidocaine patch to right knee daily.Elsy resendez [id number] [facility] [address] [address] 01/30/2024 11:16:15 02/04/2024 12:17:43 Chronic obstructive pulmonary disease 19443689 J43.8 stableCont inue Advair 250/50 BID,contin ue Combivent Respimat 1 puff TIDcontinu e albuterol HFA 1 puff q 4 hrs prnMonitor resp. status. Mixed anxi ety and depressive disorder 802654388 F41.8 Continue mirtazapin e 15 mg qhsMonitor mood Gastroesop hageal reflux disease without esophagitis 381460006 K21.9 Continue famotidine 20 mg qhsMonitor for sxs Hypothyroidism 40878021 E03.8 Continue levothyrox ine 75 mcg qdmonitor labs prn Chronic pain 89691645 G8 9.29 As above.Also gets lidocaine patch to right knee daily.Elsy resendez [id number] [facility] [address] [address] 03/12/2024 09:49:24 03/25/2024 14:50:38 Chronic obstructive pulmonary disease 15870691 J43.8 stableCont inue Advair 250/50 BID,contin ue Combivent Respimat 1 puff TIDcontinu e albuterol HFA 1 puff q 4 hrs prnMonitor resp. status. Mixed anxi ety and depressive disorder 897536113 F41.8 Continue mirtazapin e 15 mg qhsMonitor mood Gastroesop hageal reflux disease without esophagitis 061805071 K21.9 Continue famotidine 20 mg qhsMonitor for sxs Hypothyroidism 86720024 E03.8 Continue levothyrox ine 75 mcg qdmonitor labs prn Chronic pain 60959401 G8 9.29 As above.Also gets lidocaine patch to right knee daily.Elsy tor Vitamin deficiency 16368 002 E56.9 continue pyridoxine 100 mg daily ,thiamine 100 mg daily ,MVI daily Pain of knee region 1003 221959 M25.569 lidoderm patch right kneediclof enac gel bidtylenol 650 mg q6hr prn [id number] Kianna Alvarez MD [address] [place] [address] 04/17/2024 21:47:21 05/05/2024 07:56:21 Chronic obstructive pulmonary disease 73170539 J43.8 No recent exacerbati ons.Contin ue Advair 250/50 BID, Combivent Respimat 1 puff TID and albuterol HFA 1 puff q 4 hrs prnMonitor resp. status. Mixed anxi ety and depressive disorder 909585470 F41.8 Mood good tonight.Co ntinue mirtazapin e 15 mg qhsMonitor moodPsych follows, last seen on 03/23/24 with no rec for med changes. Gastroesop hageal reflux disease without esophagitis 053684512 K21.9 No current sxs.Contin ue famotidine 20 mg qhsMonitor for GI sxs Pain of le ft knee region 5822107619 53862 M25.562 Continues to do well with diclofenac gel 4 gms BID and APAP 650 mg q 6 hrs prn.Also uses lidocaine patch on right knee.Monit or sxs. Hypothyroidism 30066199 E03.8 Last TSH remains sl. low at 0.12, but with normal FT4.Contin ue levothyrox ine 75 mcg qd for nowRecheck TSH with FT4 in 3 months. Chronic pain 54079277 G8 9.29 As above.Elsy tor sxs [id number] [facility] [address] [place] [address] 05/14/2024 13:40:54 05/19/2024 13:06:16 Psoriasis 9550351 L40.9 Pruritic half dollar size, scaly red patch noted at base of hairline/ nap of neckwill add triamcinol one cream BID for 14 daysmonito r for resolution . [id number] [facility] [address] [place] [address] 05/19/2024 10:01:52 05/20/2024 14:50:20 Psoriasis 1713904 L40.9 Pruritic half dollar size, scaly red patch noted at base of hairline/ nap of neck- improvingc ontinue triamcinol one cream BID for 14 daysmonito r for resolution . [id number] [facility] [address] [address] 06/03/2024 13:59:00 06/05/2024 10:24:55 Chronic obstructive pulmonary disease 57418475 J43.8 stableCont inue Advair 250/50 BID,contin ue Combivent Respimat 1 puff TIDcontinu e albuterol HFA 1 puff q 4 hrs prnMonitor resp. status. Mixed anxi ety and depressive disorder 492115790 F41.8 mood has been stableCont inue mirtazapin e 15 mg qhspsych prn Gastroesop hageal reflux disease without esophagitis 162268270 K21.9 Continue famotidine 20 mg qhsMonitor for sxs Hypothyroidism 55697656 E03.8 Continue levothyrox ine 75 mcg qdmonitor labs prn Chronic pain 61507388 G8 9.29 As above.Also gets lidocaine patch to right knee daily.Elsy tor Vitamin deficiency 09872 002 E56.9 continue pyridoxine 100 mg daily ,thiamine 100 mg daily ,MVI daily Pain of knee region 1003 974312 M25.569 lidoderm patch right kneediclof enac gel bidtylenol 650 mg q6hr prn Psoriasis 1713057 L40.9 resolved [id number] [facility] [address] [address] 07/23/2024 10:20:41 07/28/2024 15:44:44 Chronic obstructive pulmonary disease 98892788 J43.8 stableCont inue Advair 250/50 BID,contin ue Combivent Respimat 1 puff TIDcontinu e albuterol HFA 1 puff q 4 hrs prnMonitor resp. status. Mixed anxi ety and depressive disorder 880285536 F41.8 mood has been stableCont inue mirtazapin e 15 mg qhspsych prn Gastroesop hageal reflux disease without esophagitis 735404300 K21.9 Continue famotidine 20 mg qhsMonitor for sxs Hypothyroidism 95082366 E03.8 Continue levothyrox ine 75 mcg qdmonitor labs prn Chronic pain 42960701 G8 9.29 As above.Also gets lidocaine patch to right knee daily.Elsy tor Vitamin deficiency 96490 002 E56.9 continue pyridoxine 100 mg daily ,thiamine 100 mg daily ,MVI daily Pain of knee region 1003 037307 M25.569 stable.lid oderm patch right kneediclof enac gel bidtylenol 650 mg q6hr prn Psoriasis 2358886 L40.9 resolved [id number] [facility] [address] [place] [address] 09/14/2024 12:31:36 09/22/2024 14:14:59 Chronic obstructive pulmonary disease 99372081 J43.8 stableCont inue Advair 250/50 BID,contin ue Combivent Respimat 1 puff TIDcontinu e albuterol HFA 1 puff q 4 hrs prnMonitor resp. status. Mixed anxi ety and depressive disorder 673596620 F41.8 mood has been stableCont inue mirtazapin e 15 mg qhspsych prn Gastroesop hageal reflux disease without esophagitis 291679712 K21.9 Continue famotidine 20 mg qhsMonitor for sxs Hypothyroidism 83915490 E03.8 Continue levothyrox ine 75 mcg qdmonitor labs prn Chronic pain 44012458 G8 9.29 As above.Also gets lidocaine patch to right knee daily.Elsy tor Vitamin deficiency 30510 002 E56.9 continue pyridoxine 100 mg daily ,thiamine 100 mg daily ,MVI daily Pain of knee region 1003 827515 M25.569 stable.lid oderm patch right kneediclof enac gel bidtylenol 650 mg q6hr prn [id number] [facility] [address] [address] 10/12/2024 10:37:58 10/13/2024 13:55:23 COVID-19 993480009 U07.1 we discussed antiviral, she is not interested ,s she reports that she is feeling better todaywill add prn robitussin and oxygen as wellcontin ue supportive therapy( tylenol, oxygen, robitussin ordered.)i ncrease fluids encouraged discussed with nursing, update provider with changes. Health Concerns Section Related Observation LastModified by Organization Detai ls LastModified Time None Recorded Concern Status LastModified by Organization Details LastModified Time None Recorded Advance Directives Directive Y: DNI otherwise full code Payers Encounter Date Sequence Insurance Name Policy Number Policy Martino Covered Member ID Martino Member ID Guarantor Name 05/19/2024 2 [place] Brittanie R Guiel [id number] Brittanie Guiel 05/19/2024 1 [place] [employer] Brittanie R Guiel [id number] Brittanie Guiel 06/03/2024 2 [place] Brittanie R Guiel [id number] Brittanie Guiel 06/03/2024 1 [place] [employer] Brittanie R Guiel [id number] Brittanie Guiel 07/23/2024 2 [place] Brittanie R Guiel [id number] Brittanie Guiel 07/23/2024 1 [place] [employer] Brittanie R Guiel [id number] Brittanie Guiel 09/14/2024 2 [place] Brittanie R Guiel [id number] Brittanie Guiel 09/14/2024 1 [place] [employer] Brittanie R Guiel [id number] Brittanie Guiel 10/12/2024 2 [place] Brittanie R Guiel [id number] Brittanie Guiel 10/12/2024 1 [place] [employer] Brittanie R Guiel [id number] Brittanie Guiel Notes Date Note Type Note Provider Name and Address Organization Details Recorded Time 05/19/2024 text/html This is an 83 yo woman, LTC resident with hx of Tb, hx of ovarian CA-s/p DYLLAN & BSO, COPD, and depression/anxiety . Seen today for acute rounding visit follow up for rash. [facility] [address] [facility], [address], [place], [address], [employer] 05/19/2024 13:26:13 06/03/2024 text/html This is an 83 yo woman, LTC resident with a past medical history that includes Tb, hx of ovarian CA-s/p DYLLAN & BSO, COPD, and depression/anxiety . Seen for routine rounding.She continue to stable without complaints. continues to do well, recent treated for a rash with resolution. She is independent with adls and calls for assistance as needed. She participates in recreational activities daily. [facility] [address] [facility], [address], [place], [address], [employer] 06/03/2024 17:52:32 07/23/2024 text/html This is an 83 yo woman, LTC resident with a past medical history that includes Tb, hx of ovarian CA-s/p DYLLAN & BSO, COPD, and depression/anxiety . Seen for routine rounding. She us stable at her baseline in NAD. There are no acute concerns. [facility] [address] [facility], [address], [place], [address], [employer] 07/23/2024 13:36:45 09/14/2024 text/html This is an 83 yo woman, LTC resident with a past medical history that includes Tb, hx of ovarian CA-s/p DYLLAN & BSO, COPD, and depression/anxiety . Seen for routine rounding. She is stable at her baseline in NAD. There are no acute concerns. She is eating and drinking ok, no concerns with elimination. [facility] [address] [facility], [address], [place], [address], [employer] 09/18/2024 18:11:40 10/12/2024 text/html This is an 84 yr old patient seen for acute rounding visit per nursing request for generalized weakness and lethargy; patient tested positive for covid on 10/10. she is seen lying in bed which is not normal for her, she is usual up and OOB before 7 am everyday, she tells me that she feels better today. Of note, other than generalized body aches, she has no other sx associated with covid. reportable sx reviewed. [facility] [address] [facility], [address], [place], [address], [facility] [employer] 10/12/2024 15:53:56 OBGyn Episode No OBEpisode recorded.
--- OUTSIDE RECORDS SUMMARY | 2024-10-19 06:26 | XMS_ITS | Continuity of Care Document ---
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 Plan of Treatment [...] Recorded Time Chronic obstructiv e pulmonary disease 98252319 Active 2019 Kianna Alvarez MD [address] [facility], [address], [place], [address] , [facility] 0 22:40:16 Hypothyroi dism 78466165 Active 2019 Toma Alvarado MD [address] [facility], [address], [place], [address] , [facility] 0 09:30:52 SARS-CoV-2 Active 2019 SON LEIJA NP [address] [facility], [address], [place], [address] , [facility] [employer] 0 11:35:17 Pain in right knee Active 2020 SON LEIJA NP [address] [facility], [address], [place], [address] , [facility] [employer] 1 13:53:06 Gastroesop hageal reflux disease without esophagiti s 489484504 Active 2020 SON LEIJA NP [address] [facility], [address], [place], [address] , [facility] 1 12:16:37 Vitamin deficiency 07809019 Active 2020 SON LEIJA NP [address] [facility], [address], [place], [address] , [facility] 1 12:17:06 Pain of left knee region 3755393022943 09 Active 2022 SON LEIJA NP [address] [facility], [address], [place], [address] , [facility] 3 13:05:00 Chronic pain 75578421 Active 2023 Kianna Alvarez MD [address] [facility], [address], [place], [address] , [facility] 4 11:01:01 Tuberculos is 81004422 Active 2018 Hinamarie Alvarado [facility] 9 10:15:54 Healthcare associated bacterial pneumonia 349759614 Active 2018 Hina Alvarado [facility] 9 10:16:18 Diagnostic pneumomedi astinum Active 2018 Hinamarie Alvarado [facility] 9 10:16:34 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 Medical Equipment None Reported. Allergies No known drug allergies Vitals Date Recorded Body height Heart rate Respiratory rate Body temperature Oxygen saturation Oxygen saturation in Arterial blood by Pulse oximetry Systolic blood pressure Diastolic blood pressure Provider Name and Address Organization Details Last Updated DateTime 4 149.86 cm 72 /min 18 /min 97.4 [degF] 96 % 96 % 134 mm[Hg] 76 mm[Hg] [facility] [address] [facility], [address], [place], [address], [facility] 4 13:34:43 Social History Question Answer Notes LastModified by Organizat ion Details LastModified Time Tobacco Smoking Status Former Smoker smoked 1.5 ppd, quit many yrs ago Kianna Alvarez MD [address] [facility], [address], [place], [address], [facility] 08/16/2023 17:37:37 Do You Have An Advance Directive? Yes DNI Otherwise Full Code [id number] Information not available 08/09/2020 What Is Your Level Of Alcohol Consumption? None [id number] Information not available 08/09/2020 How Much Tobacco Do You Chew? None [id number] Information not available 08/09/2020 What Is Your Code Status? DNI Information not available 03/28/2023 Do You Or Have You Ever Used E-cigarettes Or Vape? Never Used Electronic Cigarettes [id number] Information not available 08/09/2020 Where Do You Live? [facility] Information not available 03/28/2023 Legal Guardian? No Informati on not available 03/28/2023 Do You Have A Medical Power Of Ict Business Analyst? Yes Not Invoked Information not available 03/28/2023 What Was The Date Of Your Most Recent Tobacco Screening? 08/16/2023 Information not available 08/16/2023 Do You Have An Out Of Hospital DNR? No Information not available 03/28/2023 What Is Your Relationship Status? Information not available 03/28/2023 Do You Or Have You Ever Used Smokeless Tobacco? Never Used Smokeless Tobacco [id number] Information not available 08/09/2020 Do You Use Any Illicit Or Recreational Drugs? No Information not available 03/28/2023 Has Tobacco Cessation Counseling Been Provided? No N/a As Pt. No Longer Smokes Information not available 03/28/2023 How Many Years Have You Smoked Tobacco? 60 [id number] Information not available 08/09/2020 Do You Or Have You Ever Used Any Other Forms Of Tobacco Or Nicotine? No Information not available 03/28/2023 Sex: Unknown Functional Status None recorded. Mental Status None recorded. Family History Relationship Description Onset Age of this Age Resolved Age Notes LastModified by Organization Details LastModified Time Father No current problems or disability [facility] Not available 08/21 09:44:07 Mother No current problems or disability [facility] Not available 08/21 09:44:07 Notes:N/C Medical History No medical history recorded. Gynecological HistoryNo gynecological history recorded. Obstetrics History GPAL:G 0 P 0 0 0 0 Immunizations Vaccine Type Date Status Note Provider Nam e and Address Organization Details Recorded Time Influenza, adjuvanted, quadrivalent, PF 08/27/2022 completed Gabriela gonzalez, [facility] 11/01/2023 11:51:08 Influenza, adjuvanted, quadrivalent, PF 05/20/2023 completed Gabriela gonzalez, [facility] 11/01/2023 11:51:23 Past Encounters Encounter ID Performer Location Encounter Start Date Encounter Closed Date Diagnosis/Indication Diagnosis SNOMED-CT Code Diagnosis ICD10 Code Diagnosis Note [id number] [facility] [address] [place] [address] 07/23/2024 10:20:41 07/28/2024 15:44:44 Chronic obstructive pulmonary disease 45526728 J43.8 stableCont inue Advair 250/50 BID,contin ue Combivent Respimat 1 puff TIDcontinu e albuterol HFA 1 puff q 4 hrs prnMonitor resp. status. Mixed anxi ety and depressive disorder 967653570 F41.8 mood has been stableCont inue mirtazapin e 15 mg qhspsych prn Gastroesop hageal reflux disease without esophagitis 684365217 K21.9 Continue famotidine 20 mg qhsMonitor for sxs Hypothyroidism 52625350 E03.8 Continue levothyrox ine 75 mcg qdmonitor labs prn Chronic pain 85822998 G8 9.29 As above.Also gets lidocaine patch to right knee daily.Elsy tor Vitamin deficiency 61446 002 E56.9 continue pyridoxine 100 mg daily ,thiamine 100 mg daily ,MVI daily Pain of knee region 1003 893337 M25.569 stable.lid oderm patch right kneediclof enac gel bidtylenol 650 mg q6hr prn Psoriasis 0157154 L40.9 resolved Health Concerns Section Related Observation LastModified by Organization Detai ls LastModified Time None Recorded Concern Status LastModified by Organization Details LastModified Time None Recorded Payers Encounter Date Sequence Insurance Name Policy Number Policy Martino Covered Member ID Martino Member ID Guarantor Name 07/23/2024 2 [place] [facility] Brittanie Call [id number] Brittanie Call 07/23/2024 1 [place] [employer] Brittanie Call [id number] Brittanie Call Notes Date Note Type Note Provider Name and Address Organization Details Recorded Time 07/23/2024 text/html This is an 83 yo woman, LTC resident with a past medical history that includes Tb, hx of ovarian CA-s/p DYLLAN & BSO, COPD, and depression/anxi ety. Seen for routine rounding. She us stable at her baseline in NAD. There are no acute concerns. [facility] [address] [facility], [address], [place], [address], [facility] 07/23/2024 13:36:45 OBGyn Episode No OBEpisode recorded.
--- OUTSIDE RECORDS SUMMARY | 2024-10-19 06:26 | XMS_ITS | Continuity of Care Document ---
Author Organization [facility], [facility] Address [address] [place] [address] Care Team Providers Care Repairer Evaporator Name Role Phone KAREN CONTEH 3RD FLOOR [...] Recorded Time Chronic obstructiv e pulmonary disease 92342575 Active 2019 Kianna Alvarez MD [address] [facility], [address], [place], [address] , [facility] [address] [facility] 0 22:40:16 Hypothyroi dism 50462646 Active 2019 Toma Alvarado MD [address] [facility], [address], [place], [address] , [facility] [address] [facility] 0 09:30:52 SARS-CoV-2 Active 2019 SON LEIJA NP [address] [facility], [address], [place], [address] , [facility] [employer] 0 11:35:17 Pain in right knee Active 2020 SON LEIJA NP [address] [facility], [address], [place], [address] , [facility] [employer] 1 13:53:06 Gastroesop hageal reflux disease without esophagiti s 618459199 Active 2020 SON LEIJA NP [address] [facility], [address], [place], [address] , [facility] [address] [facility] 1 12:16:37 Vitamin deficiency 13693966 Active 2020 SON LEIJA NP [address] [facility], [address], [place], [address] , [facility] [address] [facility] 1 12:17:06 Pain of left knee region 4792561789897 09 Active 2022 SON LEIJA NP [address] [facility], [address], [place], [address] , [facility] 3 13:05:00 Chronic pain 19869184 Active 2023 Kianna Alvarez MD [address] [facility], [address], [place], [address] , [facility] [address] [facility] 4 11:01:01 Tuberculos is 61395159 Active 2018 Hinamarie Alvarado [facility] 9 10:15:54 Healthcare associated bacterial pneumonia 057132729 Active 2018 Hina Alvarado [facility] 9 10:16:18 Diagnostic pneumomedi astinum Active 2018 Hinamarie Alvarado [facility] 9 10:16:34 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 Medical [...] 134 mm[Hg] 70 mm[Hg] [facility] [address], [address], [place], [address], [employer] [facility] 4 15:34:38 Social History Question Answer Notes LastModified by Organizat ion Details LastModified Time Tobacco Smoking Status Former Smoker smoked 1.5 ppd, quit many yrs ago Kianna Alvarez MD [address] [facility], [address], [place], [address], [employer] [facility] 08/16/2023 17:37:37 Do You Have An Advance Directive? Yes DNI Otherwise Full Code [id number] Information not available 08/09/2020 What Is Your Level Of Alcohol Consumption? None [id number] Information not available 08/09/2020 How Much Tobacco Do You Chew? None [id number] Information not available 08/09/2020 What Is Your Code Status? DNI Information not available 03/28/2023 Do You Or Have You Ever Used E-cigarettes Or Vape? Never Used Electronic Cigarettes [id number] Information not available 08/09/2020 Where Do You Live? [facility] Information not available 03/28/2023 Legal Guardian? No Informati on not available 03/28/2023 Do You Have A Medical Power Of Tape Recorder Repairer? Yes Not Invoked Information not available 03/28/2023 What Was The Date Of Your Most Recent Tobacco Screening? 08/16/2023 Information not available 08/16/2023 Do You Have An Out Of Hospital DNR? No Information not available 03/28/2023 What Is Your Relationship Status? Information not available 03/28/2023 Do You Or Have You Ever Used Smokeless Tobacco? Never Used Smokeless Tobacco [id number] Information not available 08/09/2020 Do You Use Any Illicit Or Recreational Drugs? No Information not available 03/28/2023 Has Tobacco Cessation Counseling Been Provided? No N/a As Pt. No Longer Smokes Information not available 03/28/2023 How Many Years Have You Smoked Tobacco? 60 [id number] Information not available 08/09/2020 Do You Or Have You Ever Used Any Other Forms Of Tobacco Or Nicotine? No Information not available 03/28/2023 Sex: Unknown Functional Status None recorded. Mental Status None recorded. Family History Relationship Description Onset Age of this Age Resolved Age Notes LastModified by Organization Details LastModified Time Father No current problems or disability [facility] Not available 08/21 09:44:07 Mother No current problems or disability [facility] Not available 08/21 09:44:07 Notes:N/C Medical History No medical history recorded. Gynecological HistoryNo gynecological history recorded. Obstetrics History GPAL:G 0 P 0 0 0 0 Immunizations Vaccine Type Date Status Note Provider Nam e and Address Organization Details Recorded Time Influenza, adjuvanted, quadrivalent, PF 08/27/2022 completed Gabriela gonzalez, [facility] 11/01/2023 11:51:08 Influenza, adjuvanted, quadrivalent, PF 05/20/2023 completed Gabriela gonzalez, [facility] 11/01/2023 11:51:23 Past Encounters Encounter ID Performer Location Encounter Start Date Encounter Closed Date Diagnosis/Indication Diagnosis SNOMED-CT Code Diagnosis ICD10 Code Diagnosis Note [id number] [facility] [address] [place] [address] 09/14/2024 12:31:36 09/22/2024 14:14:59 Chronic obstructive pulmonary disease 57031834 J43.8 stableCont inue Advair 250/50 BID,contin ue Combivent Respimat 1 puff TIDcontinu e albuterol HFA 1 puff q 4 hrs prnMonitor resp. status. Mixed anxi ety and depressive disorder 961197894 F41.8 mood has been stableCont inue mirtazapin e 15 mg qhspsych prn Gastroesop hageal reflux disease without esophagitis 792806319 K21.9 Continue famotidine 20 mg qhsMonitor for sxs Hypothyroidism 24235477 E03.8 Continue levothyrox ine 75 mcg qdmonitor labs prn Chronic pain 96711077 G8 9.29 As above.Also gets lidocaine patch to right knee daily.Elsy tor Vitamin deficiency 66342 002 E56.9 continue pyridoxine 100 mg daily ,thiamine 100 mg daily ,MVI daily Pain of knee region 1003 205743 M25.569 stable.lid oderm patch right kneediclof enac gel bidtylenol 650 mg q6hr prn [id number] [facility] [address] [place] [address] 10/12/2024 10:37:58 10/13/2024 13:55:23 COVID-19 488391284 U07.1 we discussed antiviral, she is not [...] Policy Number Policy Martino Covered Member ID Matrino Member ID Guarantor Name 10/12/2024 2 [place] [facility] Brittanie Call [id number] Brittanie Call 10/12/2024 1 [place]IC[place] [employer] Brittanie Call [id number] Brittanie Call Notes Date Note Type Note Provider Name and Address Organization Details Recorded Time 10/12/2024 text/html This is an 84 yr [...] covid. reportable sx reviewed. [facility] [address] [facility], [address], [place], [address], [facility] [address] [facility] 10/12/2024 15:53:56 OBGyn Episode No OBEpisode recorded.
--- OUTSIDE RECORDS SUMMARY | 2024-10-19 06:26 | XMS_ITS | Continuity of Care Document ---
Author Organization [facility], [facility] Address [address] [place] [address] Care Team Providers Care Office Technologist Name Role Phone KAREN CONTEH 3RD FLOOR OTHER [phone] Assessment No assessment recorded. Plan of Treatment [...] Recorded Time Chronic obstructiv e pulmonary disease 29430406 Active 2019 Kianna Alvarez MD [address] [facility], [address], [place], [address] , [facility] [employer] [facility] 0 22:40:16 Hypothyroi dism 55446222 Active 2019 Toma Alvarado MD [address] [facility], [address], [place], [address] , [facility] [employer] [facility] 0 09:30:52 SARS-CoV-2 Active 2019 SON LEIJA NP [address] [facility] [address], [address], [place], [address] , [facility] [employer] 0 11:35:17 Pain in right knee Active 2020 SON LEIJA NP [address] [facility], [address], [place], [address] , [facility] [employer] 1 13:53:06 Gastroesop hageal reflux disease without esophagiti s 282709563 Active 2020 SON LEIJA NP [address] [facility], [address], [place], [address] , [facility] [employer] [facility] 1 12:16:37 Vitamin deficiency 74782638 Active 2020 SON LEIJA NP [address] [facility], [address], [place], [address] , [facility] [employer] [facility] 1 12:17:06 Pain of left knee region 3622640531495 09 Active 2022 SON LEIJA NP [address] [facility] [address], [address], [place], [address] , [facility] 3 13:05:00 Chronic pain 42843372 Active 2023 Kianna Alvarez MD [address] [facility] [address], [address], [place], [address] , [facility] [employer] [facility] 4 11:01:01 Tuberculos is 36712576 Active 2018 Hinamarie Alvarado [facility] 9 10:15:54 Healthcare associated bacterial pneumonia 220972708 Active 2018 Hina Alvarado [facility] 9 10:16:18 Diagnostic pneumomedi astinum Active 2018 Hinamarie Alvarado [facility] 9 10:16:34 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 Medical [...] 131 mm[Hg] 69 mm[Hg] [facility] [address], [address], [place], [address], [employer] [facility] 4 18:09:49 Social History Question Answer Notes LastModified by Organizat ion Details LastModified Time Tobacco Smoking Status Former Smoker smoked 1.5 ppd, quit many yrs ago Kianna Alvarez MD [address] [facility], [address], [place], [address], [facility] 08/16/2023 17:37:37 Do You Have An Advance Directive? Yes DNI Otherwise Full Code [id number] Information not available 08/09/2020 What Is Your Level Of Alcohol Consumption? None [id number] Information not available 08/09/2020 How Much Tobacco Do You Chew? None [id number] Information not available 08/09/2020 What Is Your Code Status? DNI Information not available 03/28/2023 Do You Or Have You Ever Used E-cigarettes Or Vape? Never Used Electronic Cigarettes [id number] Information not available 08/09/2020 Where Do You Live? [facility] Information not available 03/28/2023 Legal Guardian? No Informati on not available 03/28/2023 Do You Have A Medical Power Of Cutter Wet Machine? Yes Not Invoked Information not available 03/28/2023 What Was The Date Of Your Most Recent Tobacco Screening? 08/16/2023 Information not available 08/16/2023 Do You Have An Out Of Hospital DNR? No Information not available 03/28/2023 What Is Your Relationship Status? Information not available 03/28/2023 Do You Or Have You Ever Used Smokeless Tobacco? Never Used Smokeless Tobacco [id number] Information not available 08/09/2020 Do You Use Any Illicit Or Recreational Drugs? No Information not available 03/28/2023 Has Tobacco Cessation Counseling Been Provided? No N/a As Pt. No Longer Smokes Information not available 03/28/2023 How Many Years Have You Smoked Tobacco? 60 [id number] Information not available 08/09/2020 Do You Or Have You Ever Used Any Other Forms Of Tobacco Or Nicotine? No Information not available 03/28/2023 Sex: Unknown Functional Status None recorded. Mental Status None recorded. Family History Relationship Description Onset Age of this Age Resolved Age Notes LastModified by Organization Details LastModified Time Father No current problems or disability [facility] Not available 08/21 09:44:07 Mother No current problems or disability [facility] Not available 08/21 09:44:07 Notes:N/C Medical History No medical history recorded. Gynecological HistoryNo gynecological history recorded. Obstetrics History GPAL:G 0 P 0 0 0 0 Immunizations Vaccine Type Date Status Note Provider Nam e and Address Organization Details Recorded Time Influenza, adjuvanted, quadrivalent, PF 08/27/2022 completed Gabriela gonzalez, [facility] 11/01/2023 11:51:08 Influenza, adjuvanted, quadrivalent, PF 05/20/2023 completed Gabriela David [facility], [facility] 11/01/2023 11:51:23 Past Encounters Encounter ID Performer Location Encounter Start Date Encounter Closed Date Diagnosis/Indication Diagnosis SNOMED-CT Code Diagnosis ICD10 Code Diagnosis Note [id number] [facility] [address] [place] [address] 09/14/2024 12:31:36 09/22/2024 14:14:59 Chronic obstructive pulmonary disease 71030712 J43.8 stableCont inue Advair 250/50 BID,contin ue Combivent Respimat 1 puff TIDcontinu e albuterol HFA 1 puff q 4 hrs prnMonitor resp. status. Mixed anxi ety and depressive disorder 522741847 F41.8 mood has been stableCont inue mirtazapin e 15 mg qhspsych prn Gastroesop hageal reflux disease without esophagitis 941364360 K21.9 Continue famotidine 20 mg qhsMonitor for sxs Hypothyroidism 18836004 E03.8 Continue levothyrox ine 75 mcg qdmonitor labs prn Chronic pain 10589212 G8 9.29 As above.Also gets lidocaine patch to right knee daily.Elsy tor Vitamin deficiency 13784 002 E56.9 continue pyridoxine 100 mg daily ,thiamine 100 mg daily ,MVI daily Pain of knee region 1003 391980 M25.569 stable.lid oderm patch right kneediclof enac gel bidtylenol 650 mg q6hr prn Health Concerns Section Related Observation LastModified by Organization Detai ls LastModified Time None Recorded Concern Status LastModified by Organization Details LastModified Time None Recorded Payers Encounter Date Sequence Insurance Name Policy Number Policy Martino Covered Member ID Martino Member ID Guarantor Name 09/14/2024 2 [place] [facility] Brittanie Call [id number] Brittanie Call 09/14/2024 1 [place] [employer] Brittanie Call [id number] Brittanie Call Notes Date Note Type Note Provider Name and Address Organization Details Recorded Time 09/14/2024 text/html This is an 83 yo woman, LTC resident with a past medical history that includes Tb, hx of ovarian CA-s/p DYLLAN & BSO, COPD, and depression/anxi ety. Seen for routine rounding. She is stable at her baseline in NAD. There are no acute concerns. She is eating and drinking ok, no concerns with elimination. GIO BEST, [facility] [address] [facility], [address], [place], [address], [facility] 09/18/2024 18:11:40 OBGyn Episode No OBEpisode recorded.
[2024-10-19 06:41] LABS: Basophils Percent Auto 0.5 % (0-2); Eosinophils Absolute Auto 0.1 X10*3/uL (0.0-0.4); Hematocrit 38.5 % (37.0-47.0); Hemoglobin 13.2 g/dl (12.0-16.0); Imm Gran Abs Auto 0.04 X10*3/uL (0.00-0.03); Imm Gran Pct Auto 0.7 % (0.0-0.4); Lymphocytes Absolute Auto 1.6 X10*3/uL (1.2-4.9); Lymphocytes Percent Auto 29.3 % (20-40); Mean Corpuscular HGB Conc 34.3 g/dl (31.0-35.0); Mean Corpuscular Hemoglobin 30.5 pg (27.0-33.0); Mean Corpuscular Volume 88.9 fL (80.0-98.0); Mean Platelet Volume 10.2 fL (9.4-12.3); Monocytes Absolute Auto 0.4 X10*3/uL (0.1-1.2); Monocytes Percent Auto 7.9 % (2-11); Neutrophils Absolute Auto 3.3 x10*3/uL (2.0-8.3); Neutrophils Percent Auto 59.6 % (45-73); Platelet Count 205 X10*3/uL (160-400); Red Blood Count 4.33 X10*6/uL (4.20-5.50); Red Cell Distribution Width 13.7 % (11.0-16.0); White Blood Count 5.5 X10*3/uL (4.8-10.8)
[2024-10-19 07:23] LABS: Anion Gap 10 (12-20); Blood Urea Nitrogen 13 mg/dL (9-16); Calcium 8.9 mg/dL (8.4-10.2); Carbon Dioxide 22 mmol/L (22-29); Chloride 112 mmol/L (96-108); Estimated Glomerular Filt Rate > 60; Glucose Random 81 mg/dL (60-115); Potassium 4.1 mmol/L (3.3-5.1); Sodium 140 mmol/L (135-145)
== END 2024-10-19 06:20 | disposition home or self-care (01) ==
LOC: HO.MMNH3L 06:19
PROVIDERS: Visit Provider Family Medicine
DX: A15.0 Tuberculosis of lung (principal); J96.01 Acute respiratory failure with hypoxia
CPT/HCPCS: 36415; 80048; 85025

== ENCOUNTER 2024-10-30 05:50 | Outpatient (REF) | payer MEDICARE, SELFPAY ==
--- OUTSIDE RECORDS SUMMARY | 2024-10-30 05:52 | XMS_ITS | Continuity of Care Document ---
Author Organization [facility], [facility] Address [address] [place] [address] Care Team Providers Care Bicycle Courier Name Role Phone KAREN CONTEH 3RD FLOOR [...] Recorded Time Chronic obstructiv e pulmonary disease 09387182 Active 2019 Kianna Alvarez MD [address] [facility], [address], [place], [address] , [facility] [employer] [facility] 0 22:40:16 Hypothyroi dism 09691689 Active 2019 Toma Alvarado MD [address] , [address], [place], [address] , [facility] [employer] [facility] 0 09:30:52 SARS-CoV-2 Active 2019 SON LEIJA NP [address], [address], [place], [address] , [facility] [email or web address] 0 11:35:17 Pain in right knee Active 2020 SON LEIJA NP [address], [address], [place], [address] , [facility] [email or web address] 1 13:53:06 Gastroesop hageal reflux disease without esophagiti s 737877382 Active 2020 SON LEIJA NP [address] [facility], [address], [place], [address] , [facility] [employer] [facility] 1 12:16:37 Vitamin deficiency 87864826 Active 2020 SON LEIJA NP [address], [address], [place], [address] , [facility] [employer] [facility] 1 12:17:06 Pain of left knee region 4124383424008 09 Active 2022 SON LEIJA NP [address], [address], [place], [address] , [facility] 3 13:05:00 Chronic pain 55603658 Active 2023 Kianna Alvarez MD [address], [address], [place], [address] , [facility] [employer] [facility] 4 11:01:01 Tuberculos is 43025121 Active 2018 Hinamarie Alvarado [facility] 9 10:15:54 Healthcare associated bacterial pneumonia 001389981 Active 2018 Hina Alvarado [facility] 9 10:16:18 Diagnostic pneumomedi astinum Active 2018 Hinamarie Alvarado [facility] 9 10:16:34 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 [...] 131 mm[Hg] 69 mm[Hg] [facility] [address], [address], [place], [address], [employer] [facility] 4 18:09:49 Social History Question Answer Notes LastModified by Organizat ion Details LastModified Time Tobacco Smoking Status Former Smoker smoked 1.5 ppd, quit many yrs ago Kianna Alvarez MD [address] [facility], [address], [place], [address], [employer] [facility] 08/16/2023 17:37:37 Do You Have An Advance Directive? Yes DNI Otherwise Full Code [id number] Information not available 08/09/2020 What Is Your Level Of Alcohol Consumption? None [id number] Information not available 08/09/2020 How Much Tobacco Do You Chew? None [id number] Information not available 08/09/2020 What Is Your Code Status? DNI Information not available 03/28/2023 Do You Or Have You Ever Used E-cigarettes Or Vape? Never Used Electronic Cigarettes [id number] Information not available 08/09/2020 [facility] You [facility] Information not available 03/28/2023 Legal Guardian? No Informati on not available 03/28/2023 Do You Have A Medical Power Of Environmental Protection Geologist? Yes Not Invoked Information not available 03/28/2023 What Was The Date Of Your Most Recent Tobacco Screening? 08/16/2023 Information not available 08/16/2023 Do You Have An Out Of Hospital DNR? No Information not available 03/28/2023 What Is Your Relationship Status? Information not available 03/28/2023 Do You Or Have You Ever Used Smokeless Tobacco? Never Used Smokeless Tobacco [id number] Information not available 08/09/2020 Do You Use Any Illicit Or Recreational Drugs? No Information not available 03/28/2023 Has Tobacco Cessation Counseling Been Provided? No N/a As Pt. No Longer Smokes Information not available 03/28/2023 How Many Years Have You Smoked Tobacco? 60 [id number] Information not available 08/09/2020 Do You Or Have You Ever Used Any Other Forms Of Tobacco Or Nicotine? No Information not available 03/28/2023 Sex: Unknown Functional Status None recorded. Mental Status None recorded. Family History Relationship Description Onset Age of this Age Resolved Age Notes LastModified by Organization Details LastModified Time Father No current problems or disability [facility] Not available 08/21 09:44:07 Mother No current problems or disability [facility] Not available 08/21 09:44:07 Notes:N/C Medical History No medical history recorded. Gynecological HistoryNo gynecological history recorded. Obstetrics History GPAL:G 0 P 0 0 0 0 Immunizations Vaccine Type Date Status Note Provider Nam e and Address Organization Details Recorded Time Influenza, adjuvanted, quadrivalent, PF 08/27/2022 completed Gabriela gonzalez, [facility] 11/01/2023 11:51:08 Influenza, adjuvanted, quadrivalent, PF 05/20/2023 completed Gabriela David [facility], [facility] 11/01/2023 11:51:23 Past Encounters Encounter ID Performer Location Encounter Start Date Encounter Closed Date Diagnosis/Indication Diagnosis SNOMED-CT Code Diagnosis ICD10 Code Diagnosis Note [id number] [facility] [address] [place] [address] 09/14/2024 12:31:36 09/22/2024 14:14:59 Chronic obstructive pulmonary disease 91842427 J43.8 stableCont inue Advair 250/50 BID,contin ue Combivent Respimat 1 puff TIDcontinu e albuterol HFA 1 puff q 4 hrs prnMonitor resp. status. Mixed anxi ety and depressive disorder 992131568 F41.8 mood has been stableCont inue mirtazapin e 15 mg qhspsych prn Gastroesop hageal reflux disease without esophagitis 982405209 K21.9 Continue famotidine 20 mg qhsMonitor for sxs Hypothyroidism 00594356 E03.8 Continue levothyrox ine 75 mcg qdmonitor labs prn Chronic pain 49219231 G8 9.29 As above.Also gets lidocaine patch to right knee daily.Elsy tor Vitamin deficiency 16645 002 E56.9 continue pyridoxine 100 mg daily ,thiamine 100 mg daily ,MVI daily Pain of knee region 1003 296580 M25.569 stable.lid oderm patch right kneediclof enac gel bidtylenol 650 mg q6hr prn Health Concerns Section Related Observation LastModified by Organization Detai ls LastModified Time None Recorded Concern Status LastModified by Organization Details LastModified Time None Recorded Payers Encounter Date Sequence Insurance Name Policy Number Policy Martino Covered Member ID Martino Member ID Guarantor Name 09/14/2024 2 [place] [facility] Brittanie Call [id number] Brittanie Call 09/14/2024 1 [place] [employer] Brittanie Call [id number] Brittanie Call Notes Date Note Type Note [...] concerns with elimination. GIO BEST, [facility] [address], [address], [place], [address], [facility] 09/18/2024 18:11:40 OBGyn Episode No OBEpisode recorded.
--- OUTSIDE RECORDS SUMMARY | 2024-10-30 05:52 | XMS_ITS | Continuity of Care Document ---
Author Organization [facility], [facility] Address [address] [place] [address] Care Team Providers Care Salesperson Furs Name Role Phone KAREN CONTEH 3RD FLOOR [...] Recorded Time Chronic obstructiv e pulmonary disease 75441110 Active 2019 Kianna Alvarez MD [address], [address], [place], [address] , [facility] [employer] [facility] 0 22:40:16 Hypothyroi dism 87486484 Active 2019 Toma Alvarado MD [address] , [address], [place], [address] , [facility] [employer] [facility] 0 09:30:52 SARS-CoV-2 Active 2019 SON LEIJA NP [address], [address], [place], [address] , [facility] [place] [facility] 0 11:35:17 Pain in right knee Active 2020 SON LEIJA NP [address], [address], [place], [address] , [facility] [place] [place] 1 13:53:06 Gastroesop hageal reflux disease without esophagiti s 571086527 Active 2020 SON LEIJA NP [address], [address], [place], [address] , [facility] [employer] [facility] 1 12:16:37 Vitamin deficiency 02900944 Active 2020 SON LEIJA NP [address], [address], [place], [address] , [facility] [employer] [facility] 1 12:17:06 Pain of left knee region 6438234297521 09 Active 2022 SON LEIJA NP [address], [address], [place], [address] , [facility] 3 13:05:00 Chronic pain 17373522 Active 2023 Kianna Alvarez MD [address], [address], [place], [address] , 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 [...] 134 mm[Hg] 70 mm[Hg] [facility] [address], [address], [place], [address], [facility] 4 15:34:38 Social History Question Answer Notes LastModified by Organizat ion Details LastModified Time Tobacco Smoking Status Former Smoker smoked 1.5 ppd, quit many yrs ago Kianna Alvarez MD [address], [address], [place], [address], [facility] 08/16/2023 17:37:37 Do You Have An Advance Directive? Yes DNI Otherwise Full Code [id number] Information not available 08/09/2020 What Is Your Level Of Alcohol Consumption? None [id number] Information not available 08/09/2020 How Much Tobacco Do You Chew? None [id number] Information not available 08/09/2020 What Is Your Code Status? DNI Information not available 03/28/2023 Do You Or Have You Ever Used E-cigarettes Or Vape? Never Used Electronic Cigarettes [id number] Information not available 08/09/2020 Where Do You Live? [facility] Information not available 03/28/2023 Legal Guardian? No Informati on not available 03/28/2023 Do You Have A Medical Power Of Prosthetic Aide? Yes Not Invoked Information not available 03/28/2023 What Was The Date Of Your Most Recent Tobacco Screening? 08/16/2023 Information not available 08/16/2023 Do You Have An Out Of Hospital DNR? No Information not available 03/28/2023 What Is Your Relationship Status? Information not available 03/28/2023 Do You Or Have You Ever Used Smokeless Tobacco? Never Used Smokeless Tobacco [id number] Information not available 08/09/2020 Do You Use Any Illicit Or Recreational Drugs? No Information not available 03/28/2023 Has Tobacco Cessation Counseling Been Provided? No N/a As Pt. No Longer Smokes Information not available 03/28/2023 How Many Years Have You Smoked Tobacco? 60 [id number] Information not available 08/09/2020 Do You Or Have You Ever Used Any Other Forms Of Tobacco Or Nicotine? No Information not available 03/28/2023 Sex: Unknown Functional Status None recorded. Mental Status None recorded. Family History Relationship Description Onset Age of this Age Resolved Age Notes LastModified by Organization Details LastModified Time Father No current problems or disability [facility] Not available 08/21 09:44:07 Mother No current problems or disability [facility] Not available 08/21 09:44:07 Notes:N/C Medical History No medical history recorded. Gynecological HistoryNo gynecological history recorded. Obstetrics History GPAL:G 0 P 0 0 0 0 Immunizations Vaccine Type Date Status Note Provider Nam e and Address Organization Details Recorded Time Influenza, adjuvanted, quadrivalent, PF 08/27/2022 completed Gabriela gonzalez, [facility] 11/01/2023 11:51:08 Influenza, adjuvanted, quadrivalent, PF 05/20/2023 completed Gabriela gonzalez, [facility] 11/01/2023 11:51:23 Past Encounters Encounter ID Performer Location Encounter Start Date Encounter Closed Date Diagnosis/Indication Diagnosis SNOMED-CT Code Diagnosis ICD10 Code Diagnosis Note [id number] [facility] [address] [place] [address] 09/14/2024 12:31:36 09/22/2024 14:14:59 Chronic obstructive pulmonary disease 44319633 J43.8 stableCont inue Advair 250/50 BID,contin ue Combivent Respimat 1 puff TIDcontinu e albuterol HFA 1 puff q 4 hrs prnMonitor resp. status. Mixed anxi ety and depressive disorder 470567030 F41.8 mood has been stableCont inue mirtazapin e 15 mg qhspsych prn Gastroesop hageal reflux disease without esophagitis 731176617 K21.9 Continue famotidine 20 mg qhsMonitor for sxs Hypothyroidism 77073241 E03.8 Continue levothyrox ine 75 mcg qdmonitor labs prn Chronic pain 16038161 G8 9.29 As above.Also gets lidocaine patch to right knee daily.Elsy tor Vitamin deficiency 51307 002 E56.9 continue pyridoxine 100 mg daily ,thiamine 100 mg daily ,MVI daily Pain of knee region 1003 227212 M25.569 stable.lid oderm patch right kneediclof enac gel bidtylenol 650 mg q6hr prn [id number] [facility] [address] [place] [address] 10/12/2024 10:37:58 10/13/2024 13:55:23 COVID-19 429841868 U07.1 we discussed antiviral, she is not [...] Member ID Martino Member ID Guarantor Name 10/12/2024 2 [place] [facility] Brittanie Call [id number] Brittanie Call 10/12/2024 1 [place]IC[place] B[place]: [employer] Brittanie Call [id number] Brittanie Call Notes Date Note Type Note [...] covid. reportable sx reviewed. [facility] [address], [address], [place], [address], [facility] [employer] [facility] 10/12/2024 15:53:56 OBGyn Episode No OBEpisode recorded.
--- OUTSIDE RECORDS SUMMARY | 2024-10-30 05:52 | XMS_ITS | Data Portability ---
Author Organization [facility], Main Office Address [address] [facility], [address] [place] [address] Care Team Providers Care Order Analyst Name Role Phone KAREN CONTEH 3RD FLOOR OTHER [phone] Assessment No assessment recorded. Plan of Treatment [...] Recorded Time Chronic obstructiv e pulmonary disease 13891887 Active 2019 Kianna Alvarez MD [address] [facility], [address], [place], [address] , [facility] [employer] 0 22:40:16 Hypothyroi dism 79284426 Active 2019 Toma Alvarado MD [address] [facility], [address], [place], [address] , [facility] [employer] [facility] 0 09:30:52 SARS-CoV-2 Active 2019 SON LEIJA NP [address] [facility], [address], [place], [address] , [facility] [employer] 0 11:35:17 Pain in right knee Active 2020 SON LEIJA NP [address] [facility], [address], [place], [address] , [facility] [employer] 1 13:53:06 Gastroesop hageal reflux disease without esophagiti s 387230917 Active 2020 SON LEIJA NP [address] [facility], [address], [place], [address] , [facility] [employer] [facility] 1 12:16:37 Vitamin deficiency 98853882 Active 2020 SON LEIJA NP [address] [facility], [address], [place], [address] , [facility] [employer] [facility] 1 12:17:06 Pain of left knee region [id number] 09 Active 2022 SON LEIJA NP [address] [facility], [address], [place], [address] , [facility] [employer] [facility] 3 13:05:00 Chronic pain 21313795 Active 2023 Kianna Alvarez MD [address] [facility], [address], [place], [address] , [facility] [employer] [facility] 4 11:01:01 Tuberculos is 20322649 Active 2018 Hinamarie Alvarado [facility] 9 10:15:54 Healthcare associated bacterial pneumonia 049445685 Active 2018 Hina Alvarado [facility] 9 10:16:18 Diagnostic pneumomedi astinum Active 2018 Hina Alvarado [facility] 9 10:16:34 Severe protein-ca yobani malnutriti on (Bell: less than 60 percent of standard weight) 647598367 Active 2018 Hina Alvarado [facility] 9 10:17:04 Mediastina l emphysema 06608339 Active 2018 Hina Alvarado [facility] 9 10:17:42 History of malignant neoplasm of ovary 137279683 Active 2018 Hina Alvarado [facility] 9 10:18:05 Mixed anxiety and depressive disorder 672234806 Active 2018 [facility] 10:56[facility]15 Problem Notes None recorded. Medical [...] 122 mm[Hg] 70 mm[Hg] [facility] [address] [facility], [address], [place], [address], [employer] 4 10:03:14 Date Recorded Body height Oxygen saturation Oxygen saturation in Arterial blood by Pulse oximetry Body temperature Respiratory rate Heart rate Systolic blood pressure Diastolic blood pressure Provider Name and Address Organization Details Last Updated DateTime 4 149.86 cm 95 % 95 % 97.5 [degF] 20 /min 71 /min 120 mm[Hg] 75 mm[Hg] [facility] [address] [facility], [facility] [address], [place], [address], [employer] 4 14:03:38 Date Recorded Body height Heart rate Respiratory rate Body temperature Oxygen saturation Oxygen saturation in Arterial blood by Pulse oximetry Systolic blood pressure Diastolic blood pressure Provider Name and Address Organization Details Last Updated DateTime 4 149.86 cm 72 /min 18 /min 97.4 [degF] 96 % 96 % 134 mm[Hg] 76 mm[Hg] [facility] [address] [facility], [address], [place], [address], [employer] 4 13:34:43 Date Recorded Body height Heart rate Respiratory rate Body temperature Oxygen saturation Oxygen saturation in Arterial blood by Pulse oximetry Systolic blood pressure Diastolic blood pressure Provider Name and Address Organization Details Last Updated DateTime 4 149.86 cm 75 /min 18 /min 98 [degF] 98 % 98 % 131 mm[Hg] 69 mm[Hg] [facility] [address] [facility], [address], [place], [address], [employer] 4 18:09:49 Date Recorded Body height Heart rate Respiratory rate Body temperature Oxygen saturation Oxygen saturation in Arterial blood by Pulse oximetry Systolic blood pressure Diastolic blood pressure Provider Name and Address Organization Details Last Updated DateTime 4 149.86 cm 68 /min 18 /min 97.1 [degF] 96 % 96 % 134 mm[Hg] 70 mm[Hg] [facility] [address] [facility], [address], [place], [address], [facility] [employer] 4 15:34:38 Social History Question Answer Notes LastModified by Organizat ion Details LastModified Time Tobacco Smoking Status Former Smoker smoked 1.5 ppd, quit many yrs ago Kianna Alvarez MD [address] [facility], [address], [place], [address], [facility] [employer] 08/16/2023 17:37:37 Do You Have An Advance Directive? Yes DNI Otherwise Full Code [id number] Information not available 08/09/2020 What Is Your Level Of Alcohol Consumption? None [id number] Information not available 08/09/2020 How Much Tobacco Do You Chew? None [id number] Information not available 08/09/2020 What Is Your Code Status? DNI Information not available 03/28/2023 Do You Or Have You Ever Used E-cigarettes Or Vape? Never Used Electronic Cigarettes [id number] Information not available 08/09/2020 [facility] Information not available 03/28/2023 Legal Guardian? 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 08/16/2023 Information not available 08/16/2023 Do You Have An Out Of Hospital DNR? No Information not available 03/28/2023 What Is Your Relationship Status? Information not available 03/28/2023 Do You Or Have You Ever Used Smokeless Tobacco? Never Used Smokeless Tobacco [id number] Information not available 08/09/2020 Do You Use Any Illicit Or Recreational Drugs? No Information not available 03/28/2023 Has Tobacco Cessation Counseling Been Provided? No N/a As Pt. No Longer Smokes Information not available 03/28/2023 How Many Years Have You Smoked Tobacco? 60 [id number] Information not available 08/09/2020 Do You Or Have You Ever Used Any Other Forms Of Tobacco Or Nicotine? No Information not available 03/28/2023 Sex: Unknown Functional Status None recorded. Mental Status None recorded. Family History Relationship Description Onset Age of this Age Resolved Age Notes LastModified by Organization Details LastModified Time Father No current problems or disability [facility] Not available 08/21 09:44:07 Mother No current problems or disability [facility] Not available 08/21 09:44:07 Notes:N/C Medical History No medical history recorded. Gynecological HistoryNo gynecological history recorded. Obstetrics History GPAL:G 0 P 0 0 0 0 Immunizations Vaccine Type Date Status Note Provider Nam e and Address Organization Details Recorded Time Influenza, adjuvanted, quadrivalent, PF 08/27/2022 completed Gabriela gonzalez, [facility] 11/01/2023 11:51:08 Influenza, adjuvanted, quadrivalent, PF 05/20/2023 completed Gabriela gonzalez, [facility] 11/01/2023 11:51:23 Past Encounters Encounter ID Performer Location Encounter Start Date Encounter Closed Date Diagnosis/Indication Diagnosis SNOMED-CT Code Diagnosis ICD10 Code Diagnosis Note [id number] Hina CONTEH [address] [facility] [place] [address] 08/21/2019 09:44:29 09/01/2019 10:32:18 Tuberculosis 34694104 A18.89 continue Isoniazid, Rifampin, Pyrazinami de, Pyridoxine f/u at [facility] TB clinic on 08/25. Healthcare associated bacterial pneumonia 599195015 Y95 completed abx txcontinue brovana, pulmicort, duonebs scheduled and prn albuterolp ulmo and RT to follow here. 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 Mediastinal emphysema 16 907509 J98.2 pneumomedi astinum related to infection/ bronchosco pyno interventi on neededif resp sx develop will repeat cxr/CT chest Physical deconditioning 3980022198 9102 R68.89 PT/OT eval. [id number] Abhinav Gage MD [facility] [address] [place] [address] 08/24/2019 08:02:58 09/01/2019 10:59:44 Tuberculosis 10790571 A15.0 see HPIfollowe d by ID of note in hospital case discussed with dept of public health ID and determined it was safe to take patient off airborne precaution s as she had been treated for > 14 daysf/u with [facility] clinic [facility]cont[place] [facility] current Ab courseadd probioticu pdate ID with change in presentati onmonitor respirator y function Healthcare associated bacterial pneumonia [id number] Y95 see HPIcomplet ed vanco and zosynsee above Asthenia 10798479 R53.1 PT OT eval and treatmonit or fall risk Severe protein-calorie malnutrition (Bell: less than 60 percent of standard weight) 874703914 E41 carrying dx from hospitaldi etary evalmonito r weights and PO intake History of malignant neoplasm of ovary 769276829 Z85.43 added to PMH [id number] Nichelle JONES W[facility] [address] [place] [address] 09/01/2019 07:19:48 09/04/2019 15:23:56 Tuberculosis 65343236 A15.0 see HPIfollowe d by ID of note in hospital case discussed with dept of public health ID and determined it was safe to take patient off airborne precaution s as she had been treated for > 14 daysf/u with TB clinic todayconti e current Ab courseprob ioticupdat e ID with change in presentati onmonitor respirator y function Healthcare associated bacterial pneumonia 512861528 Y95 see HPIcomplet ed vanco and zosynsee above Asthenia 59760162 R53.1 PT OT eval and treatmonit or fall risk Severe protein-calorie malnutrition (Bell: less than 60 percent of standard weight) 877761282 E41 carrying dx from hospitaldi etary eval pt has gained 2 lbs in the past week according to weekly weight data, has good reported appetite. monitor weights and PO intake [id number] Nichelle Dooley [address] [address] 09/08/2019 07:58:08 09/17/2019 14:56:26 Tuberculosis 08487447 A15.0 see HPIfollowe d by ID of [...] respirator y function Healthcare associated bacterial pneumonia 112073653 Y95 see HPIcomplet ed vanco and zosynsee above Asthenia 58183478 R53.1 PT OT eval and treatmonit or fall risk Severe protein-calorie malnutrition (Bell: less than 60 percent of standard weight) 363666597 E41 carrying dx from hospitaldi etary eval pt has good reported appetite. monitor weights [place] PO intake [id number] Nichelle CONTEH [address] [place] [address] 09/15/2019 07:35:21 09/23/2019 11:38:11 Tuberculosis 70898116 A15.0 see HPIfollowe d by TB clinic [...] respirator y function Healthcare associated bacterial pneumonia 410145120 Y95 see HPIcomplet ed vanco and zosynsee above Asthenia 14090004 R53.1 PT OT eval and treatmonit or fall risk Severe protein-calorie malnutrition (Bell: less than 60 percent of standard weight) 087782594 E41 carrying dx from hospitaldi etary eval- pt now on ensures pt has good reported appetite. monitor weights and PO intake [id number] Nichelle CONTEH [address] [place] [address] 09/22/2019 09:39:42 09/29/2019 09:21:51 Tuberculosis 95241429 A15.0 see HPIfollowe d by TB clinic [...] O2 orders monitor respirator y function Asthenia 62709451 R53.1 Pt has been DCd from PT- she has reached her baseline, only walking about 30 ft with walker, varies with transfers. monitor fall risk Severe protein-calorie malnutrition (Bell: less than 60 percent of standard weight) 797059720 E41 carrying dx from hospital has lost about 9lbs in the past month pt on ensures tid will increase mirtazapin e to 15mg qd today monitor ?weight loss due to ovarian cancer History of malignant neoplasm of ovary 171982019 Z85.43 added to PMH Per family the pt had one day of treatment for this and then never followed up with this- she refused care. Mixed anxi ety and depressive disorder 752124186 F41.8 will order psych eval today monitor mood [id number] Nichelle CONTEH [address] [place] [address] 09/28/2019 07:22:29 10/01/2019 14:27:45 Tuberculosis 32370104 A15.0 see HPI stable. followed by TB [...] O2 orders monitor respirator y function Asthenia 38850370 R53.1 Pt has been DCd from PT- she has reached her baseline, only walking about 30 ft with walker, varies with transfers. monitor fall risk Severe protein-calorie malnutrition (Bell: less than 60 percent of standard weight) 528430287 E41 carrying dx from hospital has lost over 10lbs since her admission, however she appears to have leveled out. pt on ensures tid mirtazapin e increased to 15mg qd last week continue to monitor ?weight loss due to ovarian cancer History of malignant neoplasm of ovary 967948002 Z85.43 added to PMH Per family the pt had one day of treatment for this and then never followed up with this- she refused care. Mixed anxi ety and depressive disorder 883887485 F41.8 awaiting psych eval monitor mood [id number] Nichelle CONTEH [address] [place] [address] 10/08/2019 07:24:07 10/12/2019 16:27:09 Tuberculosis 69619586 A15.0 see HPI stable. followed by TB [...] less than 60 percent of standard weight) 886401422 E41 carrying dx from hospital has lost over 7lbs since her admission, appears to be stable at this time.pt on ensures tid mirtazapin e 15mg qd continue to monitor History of malignant neoplasm of ovary 730746468 Z85.43 added to PMH Per family the pt had one day of treatment for this and then never followed up with this- she refused care. Mixed anxi ety and depressive disorder 962236941 F41.8 pt recently seen by [facility], no consult notes in chart yet monitor mood [id number] Nichelle CONTEH [address] [facility] [place] [address] 10/12/2019 08:06:04 10/16/2019 13:50:57 Tuberculosis 07018599 A15.0 see HPI stable. followed by TB [...] less than 60 percent of standard weight) 648872991 E41 carrying dx from hospital pt on ensures tid mirtazapin e 15mg qd pt had initially lost weight, now improving continue to monitor Mixed anxi ety and depressive disorder 120349396 F41.8 pt recently seen by [facility], awaiting consult notes. monitor mood History of malignant neoplasm of ovary 705647182 Z85.43 added to PMH Per family the pt had one day of treatment for this and then never followed up with this- she refused care. [id number] Nichelle CONTEH [address] [place] [address] 10/19/2019 08:10:14 10/22/2019 14:29:13 Tuberculosis 20329614 A15.0 see HPI stable. followed by TB [...] less than 60 percent of standard weight) 370464339 E41 carrying dx from hospital pt on ensures tid mirtazapin e 15mg qd pt had initially lost weight, now improving continue to monitor Mixed anxi ety and depressive disorder 859297338 F41.8 mirtazapin e 15mg qd monitor mood psych following History of malignant neoplasm of ovary 152814558 Z85.43 added to PMH Per family the pt had one day of treatment for this and then never followed up with this- she refused care. [id number] MD KAREN Cooper [address] [place] [address] 11/18/2019 15:07:44 11/22/2019 15:31:49 Tuberculosis 31337589 A15.0 followed by ID f/u with [facility] [place] current Ab courseupda te ID with change in presentati onmonitor respirator y functioncu rrently stable at baseline Nausea and vomiting 1692 1999 R11.2 appears secondary to medication administra tijaki have patient take zofran priormonit or for sx control [id number] Nichelle JONES WERO [address] [place] [address] [place] [address] 12/01/2019 12:14:48 12/11/2019 14:40:43 Tuberculosis 77260819 A15.0 followed by ID seen by tb [...] less than 60 percent of standard weight) 348952140 E41 carrying dx from hospital pt on ensures tid mirtazapin e 15mg qd pt continues to have weight loss recent DC of abx as above may be helpful, as these were likely causing her some nausea continue to monitor weights bi-weekly for 4 weeks Mixed anxi ety and depressive disorder 147080736 F41.8 mirtazapin e 15mg qd monitor mood psych following History of malignant neoplasm of ovary 316922316 Z85.43 added to PMH Per family the pt had one day of treatment for this and then never followed up with this- she refused care. [id number] Nichelle CONTEH [address] [place] [address] [place] [address] 12/29/2019 12:37:57 01/01/2020 15:52:34 Cough 75889414 R05 With associated chills, fatigue, body aches. Will check for flu and resp viral panel, cbc/cmp of note there is a resident on the floor +for flu A encourage fluids supportive care continue to monitor [id number] Nichelle JONES WERO [address] [place] [address] [place] [address] 01/15/2020 14:07:52 01/21/2020 13:07:58 Tuberculosis 02521789 A15.0 followed by ID continues on multiple [...] on site prn currently stable at baseline [id number] MD KAREN Pope [address] [place] [address] [place] [address] 01/22/2020 17:32:59 01/28/2020 18:46:52 Tuberculosis 81940310 A15.0 She is on ethambutol 800 mg [...] less than 60 percent of standard weight) 195271041 E41 She has lost 20# since here. BMI still in nl. range. Was given this dx in the hospital. Continue ensure TID and mirtazapin e 15 mg qd Continue to monitor weights Mixed anxi ety and depressive disorder 267286105 F41.8 Mood good today. Continue mirtazapin e 15 mg qd. monitor mood Follow with NEG as able. History of malignant neoplasm of ovary 269376763 Z85.43 Hx of. Had DYLLAN/BSO Per family the pt had one day of treatment for this and then never followed up with this- she refused care. Chronic ob structive pulmonary disease 28118678 J43.8 Likely with underlying COPD. Continue meds as above. Will need full PFTs when able. [id number] KEILA BRASHER [address] [place] [address] 03/18/2020 09:19:47 03/22/2020 10:40:26 Chronic obstructive pulmonary disease 45220363 J44.9 monitor for any sob, O2 if needed Mixed anxi ety and depressive disorder 571942082 F41.8 Continue mirtazapin e 15 mg qd. monitor mood Follow with NEG as able. Severe protein-calorie malnutrition (Bell: less than 60 percent of standard weight) 377730038 E43 Continue ensure TID and mirtazapin e 15 mg qd Continue to monitor weights Tuberculosis 16426429 A1 8.89 continue ethambutol 800 mg qd, isoniazid 300 mg qd and pyrazinami de 1000 mg qd Nebs all transition ed to inhalers, now on combivent QID, symbicort 80/4.5 two puffs BID and proair with spacer q 4h prn. Continue O2 prn to maintain sats >90% Monitor respirator y function F/U with resp therapist and pulmonary as able. [id number] KEILA BRASHER [address] [place] [address] 04/11/2020 10:32:37 04/19/2020 15:35:04 Mixed anxiety and depressive disorder 979114814 F41.8 Continue mirtazapin e 15 mg qd. monitor mood Follow with NEG as able. [id number] MD KAREN Morales [address] [place] [address] 05/20/2020 06:57:19 05/24/2020 10:36:19 Chronic obstructive pulmonary disease 42766387 J44.9 Symbicort 4.5-80: 2 puffs bidCombive nt respimat 20-100: one puff tidalbuter ol HFA 1 puff q4h prn will monitor History of malignant neoplasm of ovary 090222949 Z85.43 s/p DYLLAN, SBO; has refused further treatment Mixed anxi ety and depressive disorder 732130193 F41.8 mirtazapin e 15 mg at hswill monitor Tuberculosis 64580644 A1 8.89 fu [facility] clinic Hypothyroidism 41667487 E03.8 levothyrox ine 75 mcg dailywill monitor [id number] KEILA BRASHER [address] [place] [address] 07/13/2020 10:24:49 07/15/2020 14:24:57 Chronic obstructive pulmonary disease 09645484 J44.9 monitor for any sob, O2 if needed symbicort 80/4.5 q12 hr combivent 20/100 tid flonase daily Healthcare associated bacterial pneumonia 108703196 J15.9 recovered Hypothyroidism 64421139 E03.9 levothyrox ine 75 mcg daily will monitor Mixed anxi ety and depressive disorder 485853140 F41.8 mirtazapin e 15 mg qd. monitor mood Follow with NEG as able. Tuberculosis 13355151 A1 8.89 combivent tid, symbicort 80/4.5 two puffs BID proair with spacer q 4h prn. Continue O2 prn to maintain sats >90% Monitor respirator y function F/U with resp therapist and pulmonary as able. Severe protein-calorie malnutrition (Bell: less than 60 percent of standard weight) 428158043 E43 ensure TID and mirtazapin e 15 mg qd thiamine 100 mg daily B6 100 daily Continue to monitor weights [id number] KEILA BRASHER [address] [place] [address] 08/23/2020 11:08:00 08/25/2020 13:34:50 Chronic obstructive pulmonary disease 57938823 J44.9 monitor for any sob, O2 if needed symbicort 80/4.5 q12 hr combivent 20/100 tid flonase daily SARS-CoV-2 761487247 U07 .1 encourage po intake O2 prn consider IVF if she becomes anorexic [id number] SON LEIJA NP [facility] [address] [place] [address] 08/29/2020 12:18:09 08/31/2020 15:39:28 Chronic obstructive pulmonary disease 51709820 J44.9 monitor for any sob, O2 if needed symbicort 80/4.5 q12 hr combivent 20/100 tid flonase daily loratadine 10mg daily Healthcare associated bacterial pneumonia 180259487 J15.9 recovered History of malignant neoplasm of ovary 811212359 Z85.43 DYLLAN SBO no further treatment Hypothyroidism 90294913 E03.9 levothyrox ine 75 mcg daily will monitor Mediastinal emphysema 16 899687 J98.2 2019 pneumomedi astinum related to infection/ bronchosco py no interventi on needed if resp sx develop will repeat cxr/CT chest Mixed anxi ety and depressive disorder 157567783 F41.8 mirtazapin e 15 mg qd. monitor mood Follow with NEG as able. SARS-CoV-2 179235634 U07 .1 encourage po intake O2 prn consider IVF if she becomes anorexic Severe protein-calorie malnutrition (Bell: less than 60 percent of standard weight) 628597731 E43 ensure TID and mirtazapin e 15 mg qd thiamine 100 mg daily B6 100 daily Continue to monitor weights Tuberculosis 77405883 A1 8.89 combivent tid, symbicort 80/4.5 two puffs BID proair with spacer q 4h prn. Continue O2 prn to maintain sats >90% Monitor respirator y function F/U with resp therapist and pulmonary as able. [id number] SON LEIJA NP [facility] [address] [place] [address] 08/30/2020 08:12:16 09/02/2020 10:34:19 SARS-CoV-2 434953260 U07.1 encourage po intake O2 prn consider IVF if she becomes anorexic [id number] SON LEIJA NP [address] [address] 08/31/2020 11:03:06 09/02/2020 11:07:24 SARS-CoV-2 085928026 U07.1 11/3, 08/23 positive encourage po intake O2 prn consider IVF if she becomes anorexic [id number] SON LEIJA NP [address] [address] 09/01/2020 09:30:51 09/06/2020 10:25:57 SARS-CoV-2 105912962 U07.1 08/16, 08/23 positive encourage po intake O2 prn consider IVF if she becomes anorexic [id number] SON LEIJA NP [address] [address] 09/02/2020 12:59:16 09/06/2020 10:40:27 SARS-CoV-2 233289775 U07.1 08/16, 08/23 positive, 08/29 negative encourage po intake O2 prn consider IVF if she becomes anorexic [id number] Toma Alvarado MD [address] [address] 09/23/2020 06:10:55 09/27/2020 11:42:12 Chronic obstructive pulmonary disease 23606960 J41.0 Advair 250-50: one puff bidCombive nt Respimat 20-100: one puff tidalbuter ol HFA 1 puff q4h prn will monitor History of malignant neoplasm of ovary 120405064 Z85.43 s/p DYLLAN, SBO; has refused further treatment Hypothyroidism 73498390 E03.8 levothyrox ine 75 mcg dailywill monitor Mixed anxi ety and depressive disorder 856788139 F41.8 mirtazapin e 15 mg at hswill monitor SARS-CoV-2 603895376 U07 .1 recoveredw ill continue to monitor [id number] SON LEIJA NP [address] [address] 11/15/2020 13:47:46 11/16/2020 14:55:19 Chronic obstructive pulmonary disease 70328907 J44.9 monitor for any sob, O2 if needed advair 250/50 daily combivent 20/100 tid flonase daily albuterol prn loratadine 10mg daily Healthcare associated bacterial pneumonia [id number] J15.9 recovered History of malignant neoplasm of ovary 090808329 Z85.43 DYLLAN SBO no further treatment Hypothyroidism 96946995 E03.9 levothyrox ine 75 mcg daily will monitor Mediastinal emphysema 16 910242 J98.2 2019 pneumomedi astinum related to infection/ bronchosco py no interventi on needed if resp sx develop will repeat cxr/CT chest Mixed anxi ety and depressive disorder 611468271 F41.8 mirtazapin e 15 mg qd. monitor mood Follow with NEG as able. SARS-CoV-2 233669355 U07 .1 recovered 08/16, 08/23 positive, 08/29 negative encourage po intake O2 prn consider IVF if she becomes anorexic Severe protein-calorie malnutrition (Bell: less than 60 percent of standard weight) 402563085 E43 ensure TID and mirtazapin e 15 mg qd thiamine 100 mg daily B6 100 daily Continue to monitor weights Tuberculosis 32146444 A1 8.89 combivent tid, advair daily proair with spacer q 4h prn. Continue O2 prn to maintain sats >90% Monitor respirator y function F/U with resp therapist and pulmonary as able. 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 mirtazapin e 15 mg at hswill monitor SARS-CoV-2 780685045 U07 .1 diagnosed 09/02 recovered will continue to monitor [id number] [facility]IJ[facility] [address] [place] [address] 03/01/2021 08:04:33 03/03/2021 13:38:48 Chronic obstructive pulmonary disease 11701597 J44.9 monitor for any sob, O2 if needed advair 250/50 bid combivent 20/100 tid flonase daily albuterol prn loratadine 10mg daily History of malignant neoplasm of ovary 673770248 Z85.43 DYLLAN SBO no further treatment Hypothyroidism 55425198 E03.9 levothyrox ine 75 mcg daily will monitor 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 monitor mood Follow with NEG as able. Pain in right knee 99350 57735 04145 M25.561 lidoderm patch right kneediclof enac gel bidtylenol 650 mg q6hr prn Severe protein-calorie malnutrition (Bell: less than 60 percent of standard weight) 212291614 E43 ensure TID mirtazapin e 15 mg qd thiamine 100 mg daily B6 100 daily Continue to monitor weights Tuberculosis 99146137 A1 8.89 combivent tid, advair 250/50 bid proair with spacer q 4h prn. Continue O2 prn to maintain sats >90% Monitor respirator y function F/U with resp therapist and pulmonary as able. [id number] Toma Alvarado MD [address] [place] [phone] 04/21/2021 06:57:11 05/02/2021 14:03:31 Chronic obstructive pulmonary disease 85703039 J41.0 Advair 250-50: one puff bidCombive nt Respimat 20-100: one puff tidalbuter ol HFA 1 puff q4h prnwill monitor History of malignant neoplasm of ovary 043588595 Z85.43 s/p DYLLAN, SBOhas refused further treatment Hypothyroidism 32299408 E03.8 levothyrox ine 75 mcg dailywill monitor Mixed anxi ety and depressive disorder 323673154 F41.8 mirtazapin e 15 mg at hswill monitor SARS-CoV-2 900696089 U07 .1 diagnosed 09/02 recovered will continue to monitor Gastroesop hageal reflux disease without esophagitis 029603651 K21.9 famotidine 20 mg at hswill monitor Acute conjunctivitis 537 48438 H10.011 improvingc omplete course of polytrim solutionwi ll monitor [id number] SON LEIJA NP [address] [address] 06/14/2021 11:54:10 06/16/2021 10:06:14 Chronic obstructive pulmonary disease 49673009 J41.0 monitor for any sob, O2 if needed advair 250/50 bid combivent 20/100 tid flonase daily albuterol prn loratadine 10mg daily Hypothyroidism 32229252 E03.8 levothyrox ine 75 mcg daily will monitor Mixed anxi ety and depressive disorder 171260946 F41.8 mirtazapin e 15 mg qd. monitor mood Follow with NEG as able. Pain in right knee 32978 67503 59876 M25.561 lidoderm patch right kneediclof enac gel bidtylenol 650 mg q6hr prn Tuberculosis 04179026 A1 8.89 combivent tid, advair 250/50 bid proair with spacer q 4h prn. O2 prn to maintain sats >90% Monitor respirator y function F/U with resp therapist and pulmonary as able. Gastroesop hageal reflux disease without esophagitis 995158823 K21.9 pepcid 20 mg daily Vitamin deficiency 47013 002 E56.9 mvi dailythiam ine 100 mg dailyB6 daily [id number] Toma Alvarado MD [address] [address] 08/23/2021 06:02:03 08/25/2021 11:44:21 Chronic obstructive pulmonary disease 97543499 J41.0 Advair 250-50: one puff bidCombive nt Respimat 20-100: one puff tidalbuter ol HFA 1 puff q4h prnwill monitor Gastroesop hageal reflux disease without esophagitis 979981535 K21.9 famotidine 20 mg at hswill monitor Hypothyroidism 37493885 E03.8 levothyrox ine 75 mcg dailywill monitor History of malignant neoplasm of ovary 611171372 Z85.43 s/p DYLLAN, SBOhas refused further treatment Mixed anxi ety and depressive disorder 251057402 F41.8 mirtazapin e 15 mg at hswill monitor Vitamin deficiency 61099 002 E56.8 pyridoxine 100 mg dailythiam ine 100 mg dailyMVI dailywill monitor Osteoarthritis 085020334 M17.11 APAP 650 mg q6h prndiclofe nac topical gel to right knee prnBengay cream to right knee q8h prnlidocai ne patch 4% to right knee dailywill monitor [id number] SON LEIJA NP [address] [address] 10/19/2021 12:58:57 10/24/2021 11:46:50 Chronic obstructive pulmonary disease 74435490 J41.0 monitor for any sob, O2 if needed advair 250/50 bid combivent 20/100 tid flonase daily albuterol prn loratadine 10mg daily Hypothyroidism 65200075 E03.8 levothyrox ine 75 mcg daily will monitor Mixed anxi ety and depressive disorder 008303900 F41.8 mirtazapin e 15 mg qd. monitor mood Follow with NEG as able. Pain in right knee 76748 83522 15461 M25.561 lidoderm patch right kneediclof enac gel bidtylenol 650 mg q6hr prn Tuberculosis 44683044 A1 8.89 combivent tid, advair 250/50 bid proair with spacer q 4h prn. O2 prn to maintain sats >90% Monitor respirator y function F/U with resp therapist and pulmonary as able. Gastroesop hageal reflux disease without esophagitis 918126149 K21.9 pepcid 20 mg daily Vitamin deficiency 62260 002 E56.9 mvi dailythiam ine 100 mg dailyB6 daily [id number] SON LEIJA NP [address] [phone] 11/09/2021 09:05:30 11/15/2021 08:55:12 Chronic obstructive pulmonary disease 83447488 J41.0 monitor for any sob, O2 if needed advair 250/50 bid combivent 20/100 tid flonase daily albuterol prn loratadine 10mg daily Pain in right knee 34544 73755 44541 M25.561 lidoderm patch right kneediclof enac gel bidtylenol 650 mg q6hr prn [id number] SON LEIJA NP [address] [address] 11/10/2021 10:03:11 11/15/2021 10:48:07 SARS-CoV-2 643933686 U07.1 11/08 covid positive, asymptomat icPatient covid positiveco ntinue supportive caremonito r PO intake and need for supplement al W5adyvlun need for adjuvent therapyto ED for acute decompensa tion [id number] SON LEIJA NP [address] [phone] 11/13/2021 12:31:35 11/15/2021 11:47:51 SARS-CoV-2 347422132 U07.1 11/08 covid positive, asymptomat ic-recover ed by Rhonda blakely covid positive continue supportive care monitor PO intake and need for supplement al O2 monitor need for adjuvent therapy to ED for acute decompensa tion [id number] Toma Alvarado MD [address] [phone] 12/22/2021 07:56:46 12/27/2021 16:02:07 Chronic obstructive pulmonary disease 12924614 J41.0 Advair 250-50: one puff bidCombive nt Respimat 20-100: one puff tidalbuter ol HFA 1 puff q4h prnwill monitor Gastroesop hageal reflux disease without esophagitis 741928467 K21.9 famotidine 20 mg at hswill monitor Hypothyroidism 41740154 E03.8 levothyrox ine 75 mcg dailywill monitor Mixed anxi ety and depressive disorder 723732827 F41.8 mirtazapin e 15 mg at hswill monitor SARS-CoV-2 523864475 U07 .1 tested positive 11/08/21asy mptomatic coursereco shelli will continue to monitor [id number] SON LEIJA NP [address] [phone] 01/19/2022 08:44:18 01/23/2022 11:01:49 Chronic obstructive pulmonary disease 97243510 J41.0 monitor for any sob, O2 if needed advair 250/50 bid combivent 20/100 tid flonase daily albuterol prn loratadine 10mg daily Hypothyroidism 92191249 E03.8 levothyrox ine 75 mcg daily will monitor Mixed anxi ety and depressive disorder 535708518 F41.8 mirtazapin e 15 mg qd. monitor mood Follow with NEG as able. Pain in right knee 99402 00291 20322 M25.561 lidoderm patch right kneediclof enac gel bidtylenol 650 mg q6hr prn Tuberculosis 15634411 A1 8.89 combivent tid, advair 250/50 bid proair with spacer q 4h prn. O2 prn to maintain sats >90% Monitor respirator y function F/U with resp therapist and pulmonary as able. Gastroesop hageal reflux disease without esophagitis 721648644 K21.9 pepcid 20 mg daily Vitamin deficiency 62947 002 E56.9 mvi dailythiam ine 100 mg dailyB6 daily [id number] KEILA BRASHER [address] [place] [address] 5 02/16/2022 11:50:24 02/20/2022 12:03:24 Chronic obstructive pulmonary disease 14926665 J41.0 monitor for any sob, O2 if needed advair 250/50 bid combivent 20/100 tid flonase daily albuterol prn loratadine 10mg daily Hypothyroidism 19879271 E03.8 levothyrox ine 75 mcg daily will monitor Mixed anxi ety and depressive disorder 052551193 F41.8 mirtazapin e 15 mg qd. monitor mood Follow with NEG as able. Pain in right knee 69450 09940 75895 M25.561 lidoderm patch right kneediclof enac gel bidtylenol 650 mg q6hr prn Tuberculosis 28763662 A1 8.89 combivent tid, advair 250/50 bid proair with spacer q 4h prn. O2 prn to maintain sats >90% Monitor respirator y function F/U with resp therapist and pulmonary as able. Gastroesop hageal reflux disease without esophagitis 492593680 K21.9 pepcid 20 mg daily Vitamin deficiency 34223 002 E56.9 mvi dailythiam ine 100 mg dailyB6 daily [id number] CHASE Eduardo [address] [address] 03/08/2022 11:23:24 03/13/2022 16:32:13 Cellulitis of finger of right hand 0280636294 9779825 L03.011 bacitracin cream apply qd till healedmoni tor. [id number] Toma Alvarado MD [address] [phone] 03/30/2022 08:39:42 04/03/2022 11:43:48 Chronic obstructive pulmonary disease 24109652 J41.0 Advair 250-50: one puff bidCombive nt Respimat 20-100: one puff tidalbuter ol HFA 1 puff q4h prnwill monitor Gastroesop hageal reflux disease without esophagitis 512305197 K21.9 famotidine 20 mg at hswill monitor Hypothyroidism 46085240 E03.8 levothyrox ine 75 mcg dailywill monitor Mixed anxi ety and depressive disorder 610832972 F41.8 mirtazapin e 15 mg at hswill monitor Vitamin deficiency 27463 002 E56.9 pyridoxine 100 mg dailythiam ine 100 mg dailyMVI dailywill monitor Osteoarthritis 237431255 M17.11 APAP 650 mg q6h prndiclofe nac topical gel to right knee bid prnBengay cream to right knee q8h prnlidocai ne patch 4% to right knee dailywill monitor [id number] SON LEIJA NP [address] [address] 05/23/2022 13:08:08 05/29/2022 16:22:19 Chronic obstructive pulmonary disease 98996712 J41.0 Advair 250-50: one puff bidCombive nt Respimat 20-100: one puff tidalbuter ol HFA 1 puff q4h prnwill monitor Gastroesop hageal reflux disease without esophagitis 969445212 K21.9 famotidine 20 mg at hswill monitor Hypothyroidism 04360519 E03.8 levothyrox ine 75 mcg dailywill monitor Mixed anxi ety and depressive disorder 821688169 F41.8 mirtazapin e 15 mg at hswill monitor Vitamin deficiency 55794 002 E56.9 pyridoxine 100 mg dailythiam ine 100 mg dailyMVI dailywill monitor Osteoarthritis 246606221 M17.11 APAP 650 mg q6h prndiclofe nac topical gel to right knee bid prnBengay cream to right knee q8h prnlidocai ne patch 4% to right knee dailywill monitor Tuberculosis 15717028 A1 8.89 combivent tid, advair 250/50 bid proair with spacer q 4h prn. O2 prn to maintain sats >90% Monitor respirator y function F/U with resp therapist and pulmonary as able. [id number] MD KAREN Morales [address] [place] [phone] 5 07/13/2022 07:10:41 07/17/2022 14:08:46 Chronic obstructive pulmonary disease 12179411 J41.0 Advair 250-50: one puff bidCombive nt Respimat 20-100: one puff tidalbuter ol HFA 1 puff q4h prnwill monitor Hypothyroidism 06524418 E03.8 levothyrox ine 75 mcg dailywill monitor Mixed anxi ety and depressive disorder 263896967 F41.8 mirtazapin e 15 mg at hswill monitor Gastroesop hageal reflux disease without esophagitis 705100740 K21.9 famotidine 20 mg at hswill monitor History of malignant neoplasm of ovary 856811011 Z85.43 s/p DYLLAN, SBOhas refused further treatment [id number] KEILA BRASHER WERO [address] [place] [address] 5 09/05/2022 17:06:29 09/11/2022 14:11:08 Chronic obstructive pulmonary disease 76198870 J41.0 Advair 250-50: one puff bidCombive nt Respimat 20-100: one puff tidalbuter ol HFA 1 puff q4h prnwill monitor Hypothyroidism 69567006 E03.8 levothyrox ine 75 mcg dailywill monitor Mixed anxi ety and depressive disorder 485264865 F41.8 mirtazapin e 15 mg at hswill monitor Gastroesop hageal reflux disease without esophagitis 003370443 K21.9 famotidine 20 mg at hswill monitor Tuberculosis 66798054 A1 8.89 combivent tid, advair 250/50 bid proair with spacer q 4h prn. O2 prn to maintain sats >90% Monitor respirator y function F/U with resp therapist and pulmonary as able. Toma Alvarado MD [address] [phone] 12/07/2022 10:38:11 12/11/2022 08:03:41 Chronic obstructive pulmonary disease 07918657 J41.0 Advair 250-50: one puff bidCombive nt Respimat 20-100: one puff tidalbuter ol HFA 1 puff q4h prnwill monitor Mixed anxi ety and depressive disorder 156256343 F41.8 mirtazapin e 15 mg at hswill monitor Gastroesop hageal reflux disease without esophagitis 544252026 K21.9 famotidine 20 mg at hswill monitor Hypothyroidism 47257191 E03.8 levothyrox ine 75 mcg dailywill monitor Chronic pain 83935546 G8 9.29 diclofenac gel to right knee bid prnlidocai ne patch to right knee dailyAPAP 650 mg q6h prnwill monitor [id number] SON LEIJA NP [address] [phone] 5 01/28/2023 14:21:07 01/31/2023 15:22:09 Chronic obstructive pulmonary disease 50338141 J41.0 Advair 250-50: one puff bidCombive nt Respimat 20-100: one puff tidalbuter ol HFA 1 puff q4h prnwill monitor Mixed anxi ety and depressive disorder 968931688 F41.8 mirtazapin e 15 mg at hswill monitor Gastroesop hageal reflux disease without esophagitis 478547503 K21.9 famotidine 20 mg at hswill monitor Hypothyroidism 72166425 E03.8 levothyrox ine 75 mcg dailywill monitor Chronic pain 17275080 G8 9.29 diclofenac gel to right knee bid prnlidocai ne patch to right knee dailyAPAP 650 mg q6h prnwill monitor [id number] KEILA BRASHER [address] [phone] 5 02/15/2023 13:27:41 02/20/2023 16:52:34 Chronic obstructive pulmonary disease 30145087 J41.0 Advair 250-50: one puff bidCombive nt Respimat 20-100: one puff tidalbuter ol HFA 1 puff q4h prnwill monitor Mixed anxi ety and depressive disorder 939598415 F41.8 mirtazapin e 15 mg at hswill monitor Gastroesop hageal reflux disease without esophagitis 881144977 K21.9 famotidine 20 mg at hswill monitor Hypothyroidism 93746658 E03.8 levothyrox ine 75 mcg dailywill monitor Chronic pain 31793373 G8 9.29 diclofenac gel to right knee bid prnlidocai ne patch to right knee dailyAPAP 650 mg q6h prnwill monitor Vitamin deficiency 58529 002 E56.9 pyridoxine 100 mg dailythiam ine 100 mg dailyMVI dailywill monitor [id number] MD KAREN Pope WERO [address] [place] [phone] 5 03/28/2023 13:20:05 04/11/2023 13:24:13 Chronic obstructive pulmonary disease 67060761 J41.0 No current sxs.Contin ue Advair 250/50 BID, Combivent Respimat 1 puff TID and albuterol HFA 1 puff q 4 hrs prnMonitor resp. status. Mixed anxi ety and depressive disorder 656406227 F41.8 Mood good today.Cont inue mirtazapin e 15 mg at hsMonitor moodPsych follows, no GDR recommende d. Gastroesop hageal reflux disease without esophagitis 090675090 K21.9 Under good controlCon tinue famotidine 20 mg at hsMonitor for sxs Hypothyroidism 70826436 E03.8 Last TSH 02/2021 was WNLContinu e levothyrox ine 75 mcg dailyMonit or TSH yearly, will order with next labs. Chronic pain 84797553 G8 9.29 She says pain is adequately controlled .Continue diclofenac gel to right knee BID prn, lidocaine patch to right knee daily and APAP 650 mg q 6 hrs prnMonitor sxs. Vitamin deficiency 04735 002 E56.8 Continue pyridoxine 100 mg daily, thiamine 100 mg daily, and MVI dailyNo monitoring needed. [id number] KEILA BRASHER [address] [place] [phone] 5 04/05/2023 13:30:53 04/11/2023 13:56:07 Chronic obstructive pulmonary disease 96294757 J41.0 Advair 250-50: one puff bidCombive nt Respimat 20-100: one puff tidalbuter ol HFA 1 puff q4h prnwill monitor Mixed anxi ety and depressive disorder 310879792 F41.8 mirtazapin e 15 mg at hswill monitor [id number] KEILA BRASHER WERO [address] [place] [phone] 5 05/17/2023 10:17:44 05/21/2023 16:07:38 Chronic obstructive pulmonary disease 36589074 J41.0 Advair 250-50: one puff bidCombive nt Respimat 20-100: one puff tidalbuter ol HFA 1 puff q4h prnwill monitor Mixed anxi ety and depressive disorder 010043339 F41.8 mirtazapin e 15 mg at hswill monitor Gastroesop hageal reflux disease without esophagitis 314211112 K21.9 famotidine 20 mg at hswill monitor Hypothyroidism 86062297 E03.8 levothyrox ine 75 mcg dailywill monitor Chronic pain 10365337 G8 9.29 diclofenac gel to right knee bid prnlidocai ne patch to right knee dailyAPAP 650 mg q6h prnwill monitor Vitamin deficiency 38558 002 E56.9 pyridoxine 100 mg dailythiam ine 100 mg dailyMVI dailywill monitor [id number] KEILA BRASHER [address] [place] [phone] 5 07/08/2023 13:04:17 07/09/2023 20:04:53 Pain of left knee region 6327080363 76268 M25.562 tylenol prnxray of left kneePT OT eval and treat prn [id number] MD KAREN Pope WERO [address] [place] [address] [place] [address] 08/16/2023 13:59:50 08/20/2023 11:12:11 Pain of left knee region 5956567986 68322 M25.562 Says it's much better.Con tinue diclofenac gel 4 gms BID and APAP 650 mg q 6 hrs prn.Monito r sxs. Chronic ob structive pulmonary disease 46896796 J41.0 Continues at mild baseline.C ontinue Advair 250/50 BID, Combivent Respimat 1 puff TID and albuterol HFA 1 puff q 4 hrs prnMonitor resp. status. Mixed anxi ety and depressive disorder 656273105 F41.8 Mood remains good at most times.Cont inue mirtazapin e 15 mg qhsMonitor moodPsych continues to follow intermitte ntly, no GDR recommende d. Gastroesop hageal reflux disease without esophagitis 397323196 K21.9 No current sxs.Contin ue famotidine 20 mg qhsMonitor for sxs Hypothyroidism 62627020 E03.8 Last TSH was in ont inue levothyrox ine 75 mcg dailyMonit or TSH yearly, will order with next labs. Chronic pain 40412981 G8 9.29 As above.Also gets lidocaine patch to right knee daily.Elsy tor [id number] KEILA BRASHER [address] [place] [address] [place] [address] 10/09/2023 13:25:53 10/22/2023 10:00:48 Chronic obstructive pulmonary disease 20257496 J41.0 Advair 250-50: one puff bidCombive nt Respimat 20-100: one puff tidalbuter ol HFA 1 puff q4h prnwill monitor Mixed anxi ety and depressive disorder 660115278 F41.8 mirtazapin e 15 mg at hswill monitor Gastroesop hageal reflux disease without esophagitis 309974609 K21.9 famotidine 20 mg at hswill monitor Hypothyroidism 00522101 E03.8 levothyrox ine 75 mcg dailywill monitor Chronic pain 29620297 G8 9.29 diclofenac gel to right knee bid prnlidocai ne patch to right knee dailyAPAP 650 mg q6h prnwill monitor Vitamin deficiency 92166 002 E56.9 pyridoxine 100 mg dailythiam ine 100 mg dailyMVI dailywill monitor [id number] CHASE CHE [address] [phone] 5 10/23/2023 11:46:55 10/30/2023 12:50:00 Contact dermatitis 46309293 L25.9 see hpihydroco rtisone 1% bid for 5 days and re evalPatien t encouraged to avoid scratching or touching affected areanursin g to offer prn tylenol for discomfort . [id number] Kianna Alvarez MD [facility] [address] [place] [phone] 5 12/10/2023 16:27:11 01/13/2024 15:10:49 Pain of left knee region 1482960265 29605 M25.562 Continues to do well with diclofenac gel 4 gms BID and APAP 650 mg q 6 hrs prn.Monito r sxs. Chronic ob structive pulmonary disease 63440332 J43.8 No recent exacerbati ons.Contin ue Advair 250/50 BID, Combivent Respimat 1 puff TID and albuterol HFA 1 puff q 4 hrs prnMonitor resp. status. Mixed anxi ety and depressive disorder 244753399 F41.8 Mood is stable, enjoys activities .Continue mirtazapin e 15 mg qhsMonitor moodPsych follows, last seen on 12/15 with no rec for med changes. Gastroesop hageal reflux disease without esophagitis 554206986 K21.9 No current sxs.Contin ue famotidine 20 mg qhsMonitor for sxs Hypothyroidism 51717548 E03.8 Last TSH in 08/2023 was sl. low at 0.17, no FT4 checked and no recheck done.Mandi nue levothyrox ine 75 mcg qd for nowRecheck TSH with FT4. Chronic pain 60945156 G8 9.29 As above.Also gets lidocaine patch to right knee daily.lEsy resendez [id number] CHASE CHE [address] [phone] 01/30/2024 11:16:15 02/04/2024 12:17:43 Chronic obstructive pulmonary disease 89434768 J43.8 stableCont inue Advair 250/50 BID,contin ue Combivent Respimat 1 puff TIDcontinu e albuterol HFA 1 puff q 4 hrs prnMonitor resp. status. Mixed anxi ety and depressive disorder 441138212 F41.8 Continue mirtazapin e 15 mg qhsMonitor mood Gastroesop hageal reflux disease without esophagitis 640446514 K21.9 Continue famotidine 20 mg qhsMonitor for sxs Hypothyroidism 27899857 E03.8 Continue levothyrox ine 75 mcg qdmonitor labs prn Chronic pain 33630523 G8 9.29 As above.Also gets lidocaine patch to right knee daily.Elsy resendez [id number] CHASE CHE [address] [phone] 03/12/2024 09:49:24 03/25/2024 14:50:38 Chronic obstructive pulmonary disease 56076632 J43.8 stableCont inue Advair 250/50 BID,contin ue Combivent Respimat 1 puff TIDcontinu e albuterol HFA 1 puff q 4 hrs prnMonitor resp. status. Mixed anxi ety and depressive disorder 316315581 F41.8 Continue mirtazapin e 15 mg qhsMonitor mood Gastroesop hageal reflux disease without esophagitis 049177070 K21.9 Continue famotidine 20 mg qhsMonitor for sxs Hypothyroidism 71839160 E03.8 Continue levothyrox ine 75 mcg qdmonitor labs prn Chronic pain 85528842 G8 9.29 As above.Also gets lidocaine patch to right knee daily.Elsy tor Vitamin deficiency 58068 002 E56.9 continue pyridoxine 100 mg daily ,thiamine 100 mg daily ,MVI daily Pain of knee region 1003 917350 M25.569 lidoderm patch right kneediclof enac gel bidtylenol 650 mg q6hr prn [id number] Kianna Alvarez MD [address] [place] [address] 04/17/2024 21:47:21 05/05/2024 07:56:21 Chronic obstructive pulmonary disease 11737431 J43.8 No recent exacerbati ons.Contin ue Advair 250/50 BID, Combivent Respimat 1 puff TID and albuterol HFA 1 puff q 4 hrs prnMonitor resp. status. Mixed anxi ety and depressive disorder 444211288 F41.8 Mood good tonight.Co ntinue mirtazapin e 15 mg qhsMonitor moodPsych follows, last seen on 03/23/24 with no rec for med changes. Gastroesop hageal reflux disease without esophagitis 573171241 K21.9 No current sxs.Contin ue famotidine 20 mg qhsMonitor for GI sxs Pain of le ft knee region 6203095717 12323 M25.562 Continues to do well with diclofenac gel 4 gms BID and APAP 650 mg q 6 hrs prn.Also uses lidocaine patch on right knee.Monit or sxs. Hypothyroidism 41712390 E03.8 Last TSH remains sl. low at 0.12, but with normal FT4.Contin ue levothyrox ine 75 mcg qd for nowRecheck TSH with FT4 in 3 months. Chronic pain 73532991 G8 9.29 As above.Elsy tor sxs [id number] [facility] [address] [place] [address] 05/14/2024 13:40:54 05/19/2024 13:06:16 Psoriasis 4117906 L40.9 Pruritic half dollar size, scaly red patch noted at base of hairline/ nap of neckwill add triamcinol one cream BID for 14 daysmonito r for resolution . [id number] [facility] [address] [place] [address] 05/19/2024 10:01:52 05/20/2024 14:50:20 Psoriasis [id number] L40.9 Pruritic half dollar size, scaly red patch noted at base of hairline/ nap of neck- improvingc ontinue triamcinol one cream BID for 14 daysmonito r for resolution . [id number] [facility] [address] [address] 06/03/2024 13:59:00 06/05/2024 10:24:55 Chronic obstructive pulmonary disease [id number] J43.8 stableCont inue Advair 250/50 BID,contin ue Combivent Respimat 1 puff TIDcontinu e albuterol HFA 1 puff q 4 hrs prnMonitor resp. status. Mixed anxi ety and depressive disorder [id number] F41.8 mood has been stableCont inue mirtazapin e 15 mg qhspsych prn Gastroesop hageal reflux disease without esophagitis [id number] K21.9 Continue famotidine 20 mg qhsMonitor for sxs Hypothyroidism 20001633 E03.8 Continue levothyrox ine 75 mcg qdmonitor labs prn Chronic pain 24653274 G8 9.29 As above.Also gets lidocaine patch to right knee daily.Elsy tor Vitamin deficiency 51185 002 E56.9 continue pyridoxine 100 mg daily ,thiamine 100 mg daily ,MVI daily Pain of knee region 1003 329761 M25.569 lidoderm patch right kneediclof enac gel bidtylenol 650 mg q6hr prn Psoriasis 9382562 L40.9 resolved [id number] [facility] [address] [address] 07/23/2024 10:20:41 07/28/2024 15:44:44 Chronic obstructive pulmonary disease [id number] J43.8 stableCont inue Advair 250/50 BID,contin ue Combivent Respimat 1 puff TIDcontinu e albuterol HFA 1 puff q 4 hrs prnMonitor resp. status. Mixed anxi ety and depressive disorder 267160737 F41.8 mood has been stableCont inue mirtazapin e 15 mg qhspsych prn Gastroesop hageal reflux disease without esophagitis 701786017 K21.9 Continue famotidine 20 mg qhsMonitor for sxs Hypothyroidism 94987027 E03.8 Continue levothyrox ine 75 mcg qdmonitor labs prn Chronic pain 34396791 G8 9.29 As above.Also gets lidocaine patch to right knee daily.Elsy tor Vitamin deficiency 28481 002 E56.9 continue pyridoxine 100 mg daily ,thiamine 100 mg daily ,MVI daily Pain of knee region 1003 655557 M25.569 stable.lid oderm patch right kneediclof enac gel bidtylenol 650 mg q6hr prn Psoriasis 6587835 L40.9 resolved [id number] [facility] [address] [place] [address] 09/14/2024 12:31:36 09/22/2024 14:14:59 Chronic obstructive pulmonary disease [id number] J43.8 stableCont inue Advair 250/50 BID,contin ue Combivent Respimat 1 puff TIDcontinu e albuterol HFA 1 puff q 4 hrs prnMonitor resp. status. 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 mood has been stableCont inue mirtazapin e 15 mg qhspsych prn Gastroesop hageal reflux disease without esophagitis 064412670 K21.9 Continue famotidine 20 mg qhsMonitor for sxs Hypothyroidism 63593251 E03.8 Continue levothyrox ine 75 mcg qdmonitor labs prn Chronic pain 93342443 G8 9.29 As above.Also gets lidocaine patch to right knee daily.Elsy tor Vitamin deficiency 04559 002 E56.9 continue pyridoxine 100 mg daily ,thiamine 100 mg daily ,MVI daily Pain of knee region 1003 044038 M25.569 stable.lid oderm patch right kneediclof enac gel bidtylenol 650 mg q6hr prn [id number] [facility] [address] [address] 10/12/2024 10:37:58 10/13/2024 13:55:23 COVID-19 [id number] U07.1 we discussed antiviral, she is not [...] 05/19/2024 2 [place] Brittanie R Guiel [id number] Brittanie Guiel 05/19/2024 1 [place] Brittanie R Guiel [id number] Brittanie Guiel 06/03/2024 2 [place] Brittanie R Guiel [id number] Brittanie Guiel 06/03/2024 1 [place] [employer] Brittanie R Guiel [id number] Brittanie Guiel 07/23/2024 2 [place] Brittanie R Guiel [id number] Brittanie Guiel 07/23/2024 1 [place] Brittanie R Guiel [id number] Brittanie Guiel 09/14/2024 2 [place] Brittanie R Guiel [id number] Brittanie Guiel 09/14/2024 1 [place] Brittanie R Guiel [id number] Brittanie Guiel 10/12/2024 2 [place] Brittanie R Guiel [id number] Brittanie Guiel 10/12/2024 1 [place] [employer] [place] Brittanie R Guiel [id number] Brittanie Guiel Notes Date Note Type Note Provider Name and Address Organization Details Recorded Time 05/19/2024 text/html This is an 83 yo woman, LTC resident with hx of Tb, hx of ovarian CA-s/p DYLLAN & BSO, COPD, and depression/anxiety . Seen today for acute rounding visit follow up for rash. [facility] [address] [facility], [address], [place], [address], [employer] 05/19/2024 13:26:13 06/03/2024 text/html This is an [...] in recreational activities daily. [facility] [address] [facility], [address], [place], [address], [employer] 06/03/2024 17:52:32 07/23/2024 text/html This is an 83 yo woman, LTC resident with a past medical history that includes Tb, hx of ovarian CA-s/p DYLLAN & BSO, COPD, and depression/anxiety . Seen for routine rounding. She us stable at her baseline in NAD. There are no acute concerns. [facility] [address] [facility], [address], [place], [address], [employer] 07/23/2024 13:36:45 09/14/2024 text/html This is an 83 yo woman, LTC resident with a past medical history that includes Tb, hx of ovarian CA-s/p DYLLAN & BSO, COPD, and depression/anxiety . Seen for routine rounding. She is stable at her baseline in NAD. There are no acute concerns. She is eating and drinking ok, no concerns with elimination. [facility] [address] [facility], [address], [place], [address], [employer] 09/18/2024 18:11:40 10/12/2024 text/html This is an [...] covid. reportable sx reviewed. [facility] [address] [facility], [address], [place], [address], [facility] [employer] 10/12/2024 15:53:56 OBGyn Episode No OBEpisode recorded.
[2024-10-30 06:46] LABS: Thyroid Stimulating Hormone 0.42 uIU/mL (0.32-4.0)
== END 2024-10-30 05:51 | disposition home or self-care (01) ==
LOC: HO.MMNH3L 05:50
PROVIDERS: Visit Provider Family Medicine
DX: I10 Essential (primary) hypertension (principal)
CPT/HCPCS: 36415; 84443

== ENCOUNTER 2024-11-16 06:21 | Outpatient (REF) | payer MEDICARE, SELFPAY ==
[2024-11-16 06:04] LABS: MANUAL DIFF FLAG NO
[2024-11-16 06:26] LABS: Basophils Percent Auto 0.6 % (0-2); Eosinophils Absolute Auto 0.1 X10*3/uL (0.0-0.4); Hematocrit 39.4 % (37.0-47.0); Hemoglobin 13.2 g/dl (12.0-16.0); Imm Gran Abs Auto 0.02 X10*3/uL (0.00-0.03); Imm Gran Pct Auto 0.4 % (0.0-0.4); Lymphocytes Absolute Auto 1.6 X10*3/uL (1.2-4.9); Lymphocytes Percent Auto 34.6 % (20-40); Mean Corpuscular HGB Conc 33.5 g/dl (31.0-35.0); Mean Corpuscular Hemoglobin 30.3 pg (27.0-33.0); Mean Corpuscular Volume 90.6 fL (80.0-98.0); Mean Platelet Volume 10.2 fL (9.4-12.3); Monocytes Absolute Auto 0.6 X10*3/uL (0.1-1.2); Monocytes Percent Auto 11.8 % (2-11); Neutrophils Absolute Auto 2.3 x10*3/uL (2.0-8.3); Neutrophils Percent Auto 49.6 % (45-73); Platelet Count 166 X10*3/uL (160-400); Red Blood Count 4.35 X10*6/uL (4.20-5.50); Red Cell Distribution Width 14.6 % (11.0-16.0); White Blood Count 4.7 X10*3/uL (4.8-10.8)
--- OUTSIDE RECORDS SUMMARY | 2024-11-16 06:31 | XMS_ITS | Clinical Summary ---
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 Former heavy tobacco smoker DX:F ormer heavy tobacco smoker Social History Tobacco Use Types Packs/Day Years Used Date Smoking Tobacco: Former Smokeless Tobacco: Never Alcohol Use Standard Drinks/Week Comments Never 0 (1 standard drink = 0.6 oz pur e alcohol) Sex and Gender Information Value Date Recorded Sex Assigned at Not on file Gender Identity Not on file Sexual Orientation Not on file Obstetrics History Plan of Treatment Health Maintenance Due Date Last Done Comments DTaP,Tdap,and Td Vaccines (1 - Tdap) 1960 Zoster Vaccines (1 of 2) 1991 Pneumococcal Vaccine: 65+ Ye ars (1 of 1 - PCV) 2006 RSV Immunization Patients 60 + Years Old (1 - 1-dose 75+ series) 2016 COVID-19 Vaccine (2023-2 5 season) 2024 Influenza Vaccine (#1) 2024 HIB Vaccines Aged Out No longer eligi ble based on patient's age to complete this topic HPV Vaccines Aged Out No longer eligi ble based on patient's age to complete this topic Hepatitis A Vaccines Aged Out No long er eligible based on patient's age to complete this topic Hepatitis B Vaccines Aged Out No long er eligible based on patient's age to complete this topic IPV Vaccines Aged Out No longer eligi ble based on patient's age to complete this topic MMR Vaccines Aged Out No longer eligi ble based on patient's age to complete this topic Meningococcal ACWY Vaccine Aged Out N o longer eligible based on patient's age to complete this topic RSV Immunization Patients Un kathleen 20 months Aged Out No longer eligible b ased on patient's age to complete this topic Varicella Vaccines Aged Out No longer eligible based on patient's age to complete this topic Advance Directives Documents on File Type Date Recorded 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
--- OUTSIDE RECORDS SUMMARY | 2024-11-16 06:31 | XMS_ITS | Data Portability ---
[facility] Address [address] [facility], [address] [place] [address] Care Team Providers Care Territory Account Executive Name Role Phone KAREN CONTEH 3RD FLOOR [...] Recorded Time Chronic obstructiv e pulmonary disease 83520091 Active 2019 Kianna Alvarez MD [address] [facility], [address], [place], [address] , [facility] [employer] 0 22:40:16 Hypothyroi dism 91794422 Active 2019 Toma Alvarado MD [address] [facility], [address], [place], [address] , [facility] 0 09:30:52 SARS-CoV-2 Active 2019 SON LEIJA NP [address] [facility], [address], [place], [address] , [facility] [employer] 0 11:35:17 Pain in right knee Active 2020 SON LEIJA NP [address] [facility], [address], [place], [address] , [facility] [employer] 1 13:53:06 Gastroesop hageal reflux disease without esophagiti s 027670012 Active 2020 SON LEIJA NP [address] [facility], [address], [place], [address] , [facility] 1 12:16:37 Vitamin deficiency 21378518 Active 2020 SON LEIJA NP [address] [facility], [address], [place], [address] , [facility] 1 12:17:06 Pain of left knee region [id number] 09 Active 2022 SON LEIJA NP [address] [facility], [address], [place], [address] , [facility] 3 13:05:00 Chronic pain 57654144 Active 2023 Kianna Alvarez MD [address] [facility], [address], [place], [address] , [facility] 4 11:01:01 Tuberculos is 84698711 Active 2018 Hinamarie Alvarado [facility] 9 10:15:54 Healthcare associated bacterial pneumonia 647963010 Active 2018 Hina Alvarado [facility] 9 10:16:18 Diagnostic pneumomedi astinum Active 2018 Hina Alvarado [facility] 9 10:16:34 Severe protein-ca yobani malnutriti on (Bell: less than 60 percent of standard weight) 700692551 Active 2018 Hina Alvarado [facility] 9 10:17:04 Mediastina l emphysema 09747541 Active 2018 Hina Alvarado [facility] 9 10:17:42 History of malignant neoplasm of ovary 712646038 Active 2018 Hina Alvarado [facility] 9 10:18:05 Mixed anxiety and depressive disorder 512714183 Active [facility] 10:56:15 Problem Notes None recorded. Medical [...] 122 mm[Hg] 70 mm[Hg] [facility] [address] [facility], [address], [place], [address], [email or web address] 4 10:03:14 Date Recorded Body height Oxygen saturation Oxygen saturation in Arterial blood by Pulse oximetry Body temperature Respiratory rate Heart rate Systolic blood pressure Diastolic blood pressure Provider Name and Address Organization Details Last Updated DateTime 4 149.86 cm 95 % 95 % 97.5 [degF] 20 /min 71 /min 120 mm[Hg] 75 mm[Hg] [facility] [address] [facility], [facility] [address], [place], [address], [email or web address] 4 14:03:38 Date Recorded Body height Heart rate Respiratory rate Body temperature Oxygen saturation Oxygen saturation in Arterial blood by Pulse oximetry Systolic blood pressure Diastolic blood pressure Provider Name and Address Organization Details Last Updated DateTime 4 149.86 cm 72 /min 18 /min 97.4 [degF] 96 % 96 % 134 mm[Hg] 76 mm[Hg] [facility] [address] [facility], [address], [place], [address], [email or web address] 4 13:34:43 Date Recorded Body height Heart rate Respiratory rate Body temperature Oxygen saturation Oxygen saturation in Arterial blood by Pulse oximetry Systolic blood pressure Diastolic blood pressure Provider Name and Address Organization Details Last Updated DateTime 4 149.86 cm 75 /min 18 /min 98 [degF] 98 % 98 % 131 mm[Hg] 69 mm[Hg] [facility] [address] [facility], [address], [place], [address], [email or web address] 4 18:09:49 Date Recorded Body height Heart rate Respiratory rate Body temperature Oxygen saturation Oxygen saturation in Arterial blood by Pulse oximetry Systolic blood pressure Diastolic blood pressure Provider Name and Address Organization Details Last Updated DateTime 4 149.86 cm 68 /min 18 /min 97.1 [degF] 96 % 96 % 134 mm[Hg] 70 mm[Hg] [facility] [address] [facility], [address], [place], [address], [facility] [employer] 4 15:34:38 Social History Question Answer Notes LastModified by Organizat ion Details LastModified Time Tobacco Smoking Status Former Smoker smoked 1.5 ppd, quit many yrs ago Kianna Alvarez MD [address] [facility], [address], [place], [address], [facility] [employer] 08/16/2023 17:37:37 Do You Have An Advance Directive? Yes DNI Otherwise Full Code [id number] Information not available 08/09/2020 What Is Your Level Of Alcohol Consumption? None [id number] Information not available 08/09/2020 How Much Tobacco Do You Chew? None [id number] Information not available 08/09/2020 What Is Your Code Status? DNI Information not available 03/28/2023 Do You Or Have You Ever Used E-cigarettes Or Vape? Never Used Electronic Cigarettes [id number] Information not available 08/09/2020 [facility] Information not available 03/28/2023 Legal Guardian? No Informati on not available 03/28/2023 Do You Have A Medical Power Of Television News Reporter? Yes Not Invoked Information not available 03/28/2023 What Was The Date Of Your Most Recent Tobacco Screening? 08/16/2023 Information not available 08/16/2023 Do You Have An Out Of Hospital DNR? No Information not available 03/28/2023 What Is Your Relationship Status? Information not available 03/28/2023 Do You Or Have You Ever Used Smokeless Tobacco? Never Used Smokeless Tobacco [id number] Information not available 08/09/2020 Do You Use Any Illicit Or Recreational Drugs? No Information not available 03/28/2023 Has Tobacco Cessation Counseling Been Provided? No N/a As Pt. No Longer Smokes Information not available 03/28/2023 How Many Years Have You Smoked Tobacco? 60 [id number] Information not available 08/09/2020 Do You Or Have You Ever Used Any Other Forms Of Tobacco Or Nicotine? No Information not available 03/28/2023 Sex: Unknown Functional Status None recorded. Mental Status None recorded. Family History Relationship Description Onset Age of this Age Resolved Age Notes LastModified by Organization Details LastModified Time Father No current problems or disability [facility] Not available 08/21 09:44:07 Mother No current problems or disability [facility] Not available 08/21 09:44:07 Notes:N/C Medical History No medical history recorded. Gynecological HistoryNo gynecological history recorded. Obstetrics History GPAL:G 0 P 0 0 0 0 Immunizations Vaccine Type Date Status Note Provider Nam e and Address Organization Details Recorded Time Influenza, adjuvanted, quadrivalent, PF 08/27/2022 completed Gabriela gonzalez, [facility] 11/01/2023 11:51:08 Influenza, adjuvanted, quadrivalent, PF 05/20/2023 completed Gabriela gonzalez, [facility] 11/01/2023 11:51:23 Past Encounters Encounter ID Performer Location Encounter Start Date Encounter Closed Date Diagnosis/Indication Diagnosis SNOMED-CT Code Diagnosis ICD10 Code Diagnosis Note [id number] Hina CONTEH [address] [facility] [place] [address] 08/21/2019 09:44:29 09/01/2019 10:32:18 Tuberculosis 59349578 A18.89 continue Isoniazid, Rifampin, Pyrazinami de, Pyridoxine f/u at [facility] on 08/25. Healthcare associated bacterial pneumonia 780066106 Y95 completed abx txcontinue brovana, pulmicort, duonebs scheduled and prn albuterolp ulmo and RT to follow here. 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 Mediastinal emphysema 16 374330 J98.2 pneumomedi astinum related to infection/ bronchosco pyno interventi on neededif resp sx develop will repeat cxr/CT chest Physical deconditioning 8594063506 9102 R68.89 PT/OT eval. [id number] Abhinav Gage MD [facility] [address] [place] [address] 08/24/2019 08:02:58 09/01/2019 10:59:44 Tuberculosis 52304590 A15.0 see HPIfollowe d by ID of note in hospital case discussed with dept of public health ID and determined it was safe to take patient off airborne precaution s as she had been treated for > 14 daysf/u with [facility] [place] [facility] current Ab courseadd probioticu pdate ID with change in presentati onmonitor respirator y function Healthcare associated bacterial pneumonia 360084174 Y95 see HPIcomplet ed vanco and zosynsee above Asthenia 91133533 R53.1 PT OT eval and treatmonit or fall risk Severe protein-calorie malnutrition (Bell: less than 60 percent of standard weight) 582837573 E41 carrying dx from hospitaldi etary evalmonito r weights and PO intake History of malignant neoplasm of ovary 010222374 Z85.43 added to PMH [id number] Nichelle JONES W[facility] [address] [place] [address] 09/01/2019 07:19:48 09/04/2019 15:23:56 Tuberculosis 35941617 A15.0 see HPIfollowe d by ID of note in hospital case discussed with dept of public health ID and determined it was safe to take patient off airborne precaution s as she had been treated for > 14 daysf/u with TB clinic todayconti e current Ab courseprob ioticupdat e ID with change in presentati onmonitor respirator y function Healthcare associated bacterial pneumonia 135084524 Y95 see HPIcomplet ed vanco and zosynsee above Asthenia 15762226 R53.1 PT OT eval and treatmonit or fall risk Severe protein-calorie malnutrition (Bell: less than 60 percent of standard weight) 545331322 E41 carrying dx from hospitaldi etary eval pt has gained 2 lbs in the past week according to weekly weight data, has good reported appetite. monitor weights and PO intake [id number] [address] [address] 09/08/2019 07:58:08 09/17/2019 14:56:26 Tuberculosis 72396862 A15.0 see HPIfollowe d by ID of [...] respirator y function Healthcare associated bacterial pneumonia 883386820 Y95 see HPIcomplet ed vanco and zosynsee above Asthenia 01084030 R53.1 PT OT eval and treatmonit or fall risk Severe protein-calorie malnutrition (Bell: less than 60 percent of standard weight) 760000151 E41 carrying dx from hospitaldi etary eval pt has good reported appetite. monitor weights and PO intake [id number] Nichelle CONTEH [address] [place] [address] 09/15/2019 07:35:21 09/23/2019 11:38:11 Tuberculosis [id number] A15.0 see HPIfollowe d by TB clinic [...] respirator y function Healthcare associated bacterial pneumonia 470693606 Y95 see HPIcomplet ed vanco and zosynsee above Asthenia 38526356 R53.1 PT OT eval and treatmonit or fall risk Severe protein-calorie malnutrition (Bell: less than 60 percent of standard weight) 283790831 E41 carrying dx from hospitaldi etary eval- pt now on ensures pt has good reported appetite. [place] [id number] Nichelle CONTEH [address] [place] [address] 09/22/2019 09:39:42 09/29/2019 09:21:51 Tuberculosis 31899701 A15.0 see HPIfollowe d by TB clinic [...] O2 orders monitor respirator y function Asthenia 36966719 R53.1 Pt has been DCd from PT- she has reached her baseline, only walking about 30 ft with walker, varies with transfers. monitor fall risk Severe protein-calorie malnutrition (Bell: less than 60 percent of standard weight) 298771657 E41 carrying dx from hospital has lost about 9lbs in the past month pt on ensures tid will increase mirtazapin e to 15mg qd today monitor ?weight loss due to ovarian cancer History of malignant neoplasm of ovary 601432068 Z85.43 added to PMH Per family the pt had one day of treatment for this and then never followed up with this- she refused care. Mixed anxi ety and depressive disorder 630011649 F41.8 will order psych eval today monitor mood [id number] Nichelle CONTEH [address] [place] [address] 09/28/2019 07:22:29 10/01/2019 14:27:45 Tuberculosis 53734035 A15.0 see HPI stable. followed by TB [...] O2 orders monitor respirator y function Asthenia 82494497 R53.1 Pt has been DCd from PT- she has reached her baseline, only walking about 30 ft with walker, varies with transfers. monitor fall risk Severe protein-calorie malnutrition (Bell: less than 60 percent of standard weight) 017295131 E41 carrying dx from hospital has lost over 10lbs since her admission, however she appears to have leveled out. pt on ensures tid mirtazapin e increased to 15mg qd last week continue to monitor ?weight loss due to ovarian cancer History of malignant neoplasm of ovary 920932296 Z85.43 added to PMH Per family the pt had one day of treatment for this and then never followed up with this- she refused care. Mixed anxi ety and depressive disorder 169881650 F41.8 awaiting psych eval monitor mood [id number] Nichelle CONTEH [address] [place] [address] 10/08/2019 07:24:07 10/12/2019 16:27:09 Tuberculosis [id number] A15.0 see HPI stable. followed by TB [...] less than 60 percent of standard weight) 996698906 E41 carrying dx from hospital has lost over 7lbs since her admission, appears to be stable at this time.pt on ensures tid mirtazapin e 15mg qd continue to monitor History of malignant neoplasm of ovary 684161789 Z85.43 added to PMH Per family the pt had one day of treatment for this and then never followed up with this- she refused care. Mixed anxi ety and depressive disorder 778481825 F41.8 pt recently seen by [facility], no consult notes in chart yet monitor mood [id number] Nichelle CONTEH [address] [facility] [place] [address] 10/12/2019 08:06:04 10/16/2019 13:50:57 Tuberculosis 79319226 A15.0 see HPI stable. followed by TB [...] less than 60 percent of standard weight) 473539435 E41 carrying dx from hospital pt on ensures tid mirtazapin e 15mg qd pt had initially lost weight, now improving continue to monitor Mixed anxi ety and depressive disorder 651665704 F41.8 pt recently seen by [facility], awaiting consult notes. monitor mood History of malignant neoplasm of ovary 244200638 Z85.43 added to PMH Per family the pt had one day of treatment for this and then never followed up with this- she refused care. [id number] Nichelle CONTEH [address] [facility] [place] [address] 10/19/2019 08:10:14 10/22/2019 14:29:13 Tuberculosis 39885324 A15.0 see HPI stable. followed by TB [...] less than 60 percent of standard weight) 958613928 E41 carrying dx from hospital pt on ensures tid mirtazapin e 15mg qd pt had initially lost weight, now improving continue to monitor Mixed anxi ety and depressive disorder 083294748 F41.8 mirtazapin e 15mg qd monitor mood psych following History of malignant neoplasm of ovary 980817757 Z85.43 added to PMH Per family the pt had one day of treatment for this and then never followed up with this- she refused care. [id number] MD KAREN Cooper [address] [facility] [place] [address] 11/18/2019 15:07:44 11/22/2019 15:31:49 Tuberculosis 86096970 A15.0 followed by ID f/u with [facility] [place] [facility] current Ab courseupda te ID with change in presentati onmonitor respirator y functioncu rrently stable at baseline Nausea and vomiting 1692 1999 R11.2 appears secondary to medication administra tijaki have patient take zofran priormonit or for sx control [id number] Nichelle JONES WERO [address] [place] [address] [place] [address] 12/01/2019 12:14:48 12/11/2019 14:40:43 Tuberculosis 84284375 A15.0 followed by ID seen by tb [...] less than 60 percent of standard weight) 471090547 E41 carrying dx from hospital pt on ensures tid mirtazapin e 15mg qd pt continues to have weight loss recent DC of abx as above may be helpful, as these were likely causing her some nausea continue to monitor weights bi-weekly for 4 weeks Mixed anxi ety and depressive disorder 963871916 F41.8 mirtazapin e 15mg qd monitor mood psych following History of malignant neoplasm of ovary 607144474 Z85.43 added to PMH Per family the pt had one day of treatment for this and then never followed up with this- she refused care. [id number] Nichelle CONTEH [address] [place] [address] [place] [address] 12/29/2019 12:37:57 01/01/2020 15:52:34 Cough 36994015 R05 With associated chills, fatigue, body aches. Will check for flu and resp viral panel, cbc/cmp of note there is a resident on the floor +for flu A encourage fluids supportive care continue to monitor [id number] Nichelle JONES WERO [address] [place] [address] [place] [address] 01/15/2020 14:07:52 01/21/2020 13:07:58 Tuberculosis 01666472 A15.0 followed by ID continues on multiple [...] on site prn currently stable at baseline [id number] MD KAREN Pope [address] [place] [address] [place] [address] 01/22/2020 17:32:59 01/28/2020 18:46:52 Tuberculosis 43724111 A15.0 She is on ethambutol 800 mg [...] less than 60 percent of standard weight) 436328227 E41 She has lost 20# since here. BMI still in nl. range. Was given this dx in the hospital. Continue ensure TID and mirtazapin e 15 mg qd Continue to monitor weights Mixed anxi ety and depressive disorder 755250920 F41.8 Mood good today. Continue mirtazapin e 15 mg qd. monitor mood Follow with NEG as able. History of malignant neoplasm of ovary 292707644 Z85.43 Hx of. Had DYLLAN/BSO Per family the pt had one day of treatment for this and then never followed up with this- she refused care. Chronic ob structive pulmonary disease 06800728 J43.8 Likely with underlying COPD. Continue meds as above. Will need full PFTs when able. [id number] KEILA BRASHER [address] [place] [address] 03/18/2020 09:19:47 03/22/2020 10:40:26 Chronic obstructive pulmonary disease 33624105 J44.9 monitor for any sob, O2 if needed Mixed anxi ety and depressive disorder 475582944 F41.8 Continue mirtazapin e 15 mg qd. monitor mood Follow with NEG as able. Severe protein-calorie malnutrition (Bell: less than 60 percent of standard weight) 403494262 E43 Continue ensure TID and mirtazapin e 15 mg qd Continue to monitor weights Tuberculosis 31915754 A1 8.89 continue ethambutol 800 mg qd, isoniazid 300 mg qd and pyrazinami de 1000 mg qd Nebs all transition ed to inhalers, now on combivent QID, symbicort 80/4.5 two puffs BID and proair with spacer q 4h prn. Continue O2 prn to maintain sats >90% Monitor respirator y function F/U with resp therapist and pulmonary as able. [id number] KEILA BRASHER [address] [place] [address] 04/11/2020 10:32:37 04/19/2020 15:35:04 Mixed anxiety and depressive disorder 446981762 F41.8 Continue mirtazapin e 15 mg qd. monitor mood Follow with NEG as able. [id number] MD KAREN Morales [address] [place] [address] 05/20/2020 06:57:19 05/24/2020 10:36:19 Chronic obstructive pulmonary disease 92513277 J44.9 Symbicort 4.5-80: 2 puffs bidCombive nt respimat 20-100: one puff tidalbuter ol HFA 1 puff q4h prn will monitor History of malignant neoplasm of ovary 864092397 Z85.43 s/p DYLLAN, SBO; has refused further treatment Mixed anxi ety and depressive disorder 682611762 F41.8 mirtazapin e 15 mg at hswill monitor Tuberculosis 14315443 A1 8.89 fu [facility] clinic Hypothyroidism 11488855 E03.8 levothyrox ine 75 mcg dailywill monitor [id number] KEILA BRASHER [address] [place] [address] 07/13/2020 10:24:49 07/15/2020 14:24:57 Chronic obstructive pulmonary disease 15805876 J44.9 monitor for any sob, O2 if needed symbicort 80/4.5 q12 hr combivent 20/100 tid flonase daily Healthcare associated bacterial pneumonia 507569702 J15.9 recovered Hypothyroidism 97864606 E03.9 levothyrox ine 75 mcg daily will monitor Mixed anxi ety and depressive disorder 864998429 F41.8 mirtazapin e 15 mg qd. monitor mood Follow with NEG as able. Tuberculosis 48522486 A1 8.89 combivent tid, symbicort 80/4.5 two puffs BID proair with spacer q 4h prn. Continue O2 prn to maintain sats >90% Monitor respirator y function F/U with resp therapist and pulmonary as able. Severe protein-calorie malnutrition (Bell: less than 60 percent of standard weight) 608312678 E43 ensure TID and mirtazapin e 15 mg qd thiamine 100 mg daily B6 100 daily Continue to monitor weights [id number] KEILA BRASHER [address] [place] [address] 08/23/2020 11:08:00 08/25/2020 13:34:50 Chronic obstructive pulmonary disease 58319002 J44.9 monitor for any sob, O2 if needed symbicort 80/4.5 q12 hr combivent 20/100 tid flonase daily SARS-CoV-2 882770797 U07 .1 encourage po intake O2 prn consider IVF if she becomes anorexic [id number] SON LEIJA NP [facility] [address] [place] [address] 08/29/2020 12:18:09 08/31/2020 15:39:28 Chronic obstructive pulmonary disease 62672850 J44.9 monitor for any sob, O2 if needed symbicort 80/4.5 q12 hr combivent 20/100 tid flonase daily loratadine 10mg daily Healthcare associated bacterial pneumonia 744976409 J15.9 recovered History of malignant neoplasm of ovary 425295238 Z85.43 DYLLAN SBO no further treatment Hypothyroidism 71111194 E03.9 levothyrox ine 75 mcg daily will monitor Mediastinal emphysema 16 926563 J98.2 2019 pneumomedi astinum related to infection/ bronchosco py no interventi on needed if resp sx develop will repeat cxr/CT chest Mixed anxi ety and depressive disorder 492268624 F41.8 mirtazapin e 15 mg qd. monitor mood Follow with NEG as able. SARS-CoV-2 807907660 U07 .1 encourage po intake O2 prn consider IVF if she becomes anorexic Severe protein-calorie malnutrition (Bell: less than 60 percent of standard weight) 560768804 E43 ensure TID and mirtazapin e 15 mg qd thiamine 100 mg daily B6 100 daily Continue to monitor weights Tuberculosis 88692454 A1 8.89 combivent tid, symbicort 80/4.5 two puffs BID proair with spacer q 4h prn. Continue O2 prn to maintain sats >90% Monitor respirator y function F/U with resp therapist and pulmonary as able. [id number] SON LEIJA NP [facility] [address] [place] [address] 08/30/2020 08:12:16 09/02/2020 10:34:19 SARS-CoV-2 082175794 U07.1 encourage po intake O2 prn consider IVF if she becomes anorexic [id number] SON LEIJA NP [address] [address] 08/31/2020 11:03:06 09/02/2020 11:07:24 SARS-CoV-2 251815781 U07.1 11/3, 08/23 positive encourage po intake O2 prn consider IVF if she becomes anorexic [id number] SON LEIJA NP [address] [address] 09/01/2020 09:30:51 09/06/2020 10:25:57 SARS-CoV-2 180436595 U07.1 08/16, 08/23 positive encourage po intake O2 prn consider IVF if she becomes anorexic [id number] SON LEIJA NP [address] [address] 09/02/2020 12:59:16 09/06/2020 10:40:27 SARS-CoV-2 542730224 U07.1 08/16, 08/23 positive, 08/29 negative encourage po intake O2 prn consider IVF if she becomes anorexic [id number] Toma Alvarado MD [address] [address] 09/23/2020 06:10:55 09/27/2020 11:42:12 Chronic obstructive pulmonary disease 23255760 J41.0 Advair 250-50: one puff bidCombive nt Respimat 20-100: one puff tidalbuter ol HFA 1 puff q4h prn will monitor History of malignant neoplasm of ovary 563836375 Z85.43 s/p DYLLAN, SBO; has refused further treatment Hypothyroidism 11726109 E03.8 levothyrox ine 75 mcg dailywill monitor Mixed anxi ety and depressive disorder 854996876 F41.8 mirtazapin e 15 mg at hswill monitor SARS-CoV-2 819049052 U07 .1 recoveredw ill continue to monitor [id number] SON LEIJA NP [address] [address] 11/15/2020 13:47:46 11/16/2020 14:55:19 Chronic obstructive pulmonary disease 36031710 J44.9 monitor for any sob, O2 if needed advair 250/50 daily combivent 20/100 tid flonase daily albuterol prn loratadine 10mg daily Healthcare associated bacterial pneumonia 173006256 J15.9 recovered History of malignant neoplasm of ovary 918142787 Z85.43 DYLLAN SBO no further treatment Hypothyroidism 16740351 E03.9 levothyrox ine 75 mcg daily will monitor Mediastinal emphysema 16 146912 J98.2 2019 pneumomedi astinum related to infection/ bronchosco py no interventi on needed if resp sx develop will repeat cxr/CT chest Mixed anxi ety and depressive disorder 386040360 F41.8 mirtazapin e 15 mg qd. monitor mood Follow with NEG as able. SARS-CoV-2 358485773 U07 .1 recovered 08/16, 08/23 positive, 08/29 negative encourage po intake O2 prn consider IVF if she becomes anorexic Severe protein-calorie malnutrition (Bell: less than 60 percent of standard weight) 007026263 E43 ensure TID and mirtazapin e 15 mg qd thiamine 100 mg daily B6 100 daily Continue to monitor weights Tuberculosis 81306086 A1 8.89 combivent tid, advair daily proair with spacer q 4h prn. Continue O2 prn to maintain sats >90% Monitor respirator y function F/U with resp therapist and pulmonary as able. Pain in right knee 48005 38981 10824 M25.561 lidoderm patch right kneediclof enac gel bidtylenol 650 mg q6hr prn [id number] Toma Alvarado MD [address] [address] 01/06/2021 07:13:09 01/10/2021 10:35:09 Chronic obstructive pulmonary disease 66452886 J41.0 Advair 250-50: one puff bidCombive nt Respimat 20-100: one puff tidalbuter ol HFA 1 puff q4h prn will monitor History of malignant neoplasm of ovary 825424181 Z85.43 s/p DYLLAN, SBO; has refused further treatment Hypothyroidism 72532761 E03.8 levothyrox ine 75 mcg dailywill monitor Mixed anxi ety and depressive disorder 650688688 F41.8 mirtazapin e 15 mg at hswill monitor SARS-CoV-2 789016940 U07 .1 diagnosed 09/02 recovered will continue to monitor [id number] SON LEIJA NP [facility] [address] [place] [address] 03/01/2021 08:04:33 03/03/2021 13:38:48 Chronic obstructive pulmonary disease 54365617 J44.9 monitor for any sob, O2 if needed advair 250/50 bid combivent 20/100 tid flonase daily albuterol prn loratadine 10mg daily History of malignant neoplasm of ovary 090627837 Z85.43 DYLLAN SBO no further treatment Hypothyroidism 27277949 E03.9 levothyrox ine 75 mcg daily will monitor 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 monitor mood Follow with NEG as able. Pain in right knee 22026 72462 82090 M25.561 lidoderm patch right kneediclof enac gel bidtylenol 650 mg q6hr prn Severe protein-calorie malnutrition (Bell: less than 60 percent of standard weight) 231617877 E43 ensure TID mirtazapi ne 15 mg qd thiamine 100 mg daily B6 100 daily Continue to monitor weights Tuberculosis 73995724 A1 8.89 combivent tid, advair 250/50 bid proair with spacer q 4h prn. Continue O2 prn to maintain sats >90% Monitor respirator y function F/U with resp therapist and pulmonary as able. [id number] Toma Alvarado MD [address] [place] [address] 04/21/2021 06:57:11 05/02/2021 14:03:31 Chronic obstructive pulmonary disease 89183098 J41.0 Advair 250-50: one puff bidCombive nt Respimat 20-100: one puff tidalbuter ol HFA 1 puff q4h prnwill monitor History of malignant neoplasm of ovary 189160449 Z85.43 s/p DYLLAN, SBOhas refused further treatment Hypothyroidism 88066163 E03.8 levothyrox ine 75 mcg dailywill monitor Mixed anxi ety and depressive disorder 145051622 F41.8 mirtazapin e 15 mg at hswill monitor SARS-CoV-2 559542533 U07 .1 diagnosed 09/02 recovered will continue to monitor Gastroesop hageal reflux disease without esophagitis 699709670 K21.9 famotidine 20 mg at hswill monitor Acute conjunctivitis 537 62021 H10.011 improvingc omplete course of polytrim solutionwi ll monitor [id number] SON LEIJA NP [address] [address] 06/14/2021 11:54:10 06/16/2021 10:06:14 Chronic obstructive pulmonary disease 73942904 J41.0 monitor for any sob, O2 if needed advair 250/50 bid combivent 20/100 tid flonase daily albuterol prn loratadine 10mg daily Hypothyroidism 43649229 E03.8 levothyrox ine 75 mcg daily will monitor Mixed anxi ety and depressive disorder 536031788 F41.8 mirtazapin e 15 mg qd. monitor mood Follow with NEG as able. Pain in right knee 40789 44944 42796 M25.561 lidoderm patch right kneediclof enac gel bidtylenol 650 mg q6hr prn Tuberculosis 25202502 A1 8.89 combivent tid, advair 250/50 bid proair with spacer q 4h prn. O2 prn to maintain sats >90% Monitor respirator y function F/U with resp therapist and pulmonary as able. Gastroesop hageal reflux disease without esophagitis 129859227 K21.9 pepcid 20 mg daily Vitamin deficiency 33366 002 E56.9 mvi dailythiam ine 100 mg dailyB6 daily [id number] Toma Alvarado MD [address] [address] 08/23/2021 06:02:03 08/25/2021 11:44:21 Chronic obstructive pulmonary disease 32945380 J41.0 Advair 250-50: one puff bidCombive nt Respimat 20-100: one puff tidalbuter ol HFA 1 puff q4h prnwill monitor Gastroesop hageal reflux disease without esophagitis 811256752 K21.9 famotidine 20 mg at hswill monitor Hypothyroidism 45388980 E03.8 levothyrox ine 75 mcg dailywill monitor History of malignant neoplasm of ovary 649543035 Z85.43 s/p DYLLAN, SBOhas refused further treatment Mixed anxi ety and depressive disorder 359587246 F41.8 mirtazapin e 15 mg at hswill monitor Vitamin deficiency 15084 002 E56.8 pyridoxine 100 mg dailythiam ine 100 mg dailyMVI dailywill monitor Osteoarthritis 804286181 M17.11 APAP 650 mg q6h prndiclofe nac topical gel to right knee prnBengay cream to right knee q8h prnlidocai ne patch 4% to right knee dailywill monitor [id number] SON LEIJA NP [address] [address] 10/19/2021 12:58:57 10/24/2021 11:46:50 Chronic obstructive pulmonary disease 44470557 J41.0 monitor for any sob, O2 if needed advair 250/50 bid combivent 20/100 tid flonase daily albuterol prn loratadine 10mg daily Hypothyroidism 68189796 E03.8 levothyrox ine 75 mcg daily will monitor Mixed anxi ety and depressive disorder 009436171 F41.8 mirtazapin e 15 mg qd. monitor mood Follow with NEG as able. Pain in right knee 94289 43212 36229 M25.561 lidoderm patch right kneediclof enac gel bidtylenol 650 mg q6hr prn Tuberculosis 86677244 A1 8.89 combivent tid, advair 250/50 bid proair with spacer q 4h prn. O2 prn to maintain sats >90% Monitor respirator y function F/U with resp therapist and pulmonary as able. Gastroesop hageal reflux disease without esophagitis 381200153 K21.9 pepcid 20 mg daily Vitamin deficiency 46023 002 E56.9 mvi dailythiam ine 100 mg dailyB6 daily [id number] SON LEIJA NP [address] [address] 11/09/2021 09:05:30 11/15/2021 08:55:12 Chronic obstructive pulmonary disease 40907265 J41.0 monitor for any sob, O2 if needed advair 250/50 bid combivent 20/100 tid flonase daily albuterol prn loratadine 10mg daily Pain in right knee 54221 98214 81408 M25.561 lidoderm patch right kneediclof enac gel bidtylenol 650 mg q6hr prn [id number] SON LEIJA NP [address] [address] 11/10/2021 10:03:11 11/15/2021 10:48:07 SARS-CoV-2 908103173 U07.1 11/08 covid positive, asymptomat icPatient covid positiveco ntinue supportive caremonito r PO intake and need for supplement al [id number] need for adjuvent therapyto ED for acute decompensa tion [id number] SON LEIJA NP [address] [address] 11/13/2021 12:31:35 11/15/2021 11:47:51 SARS-CoV-2 145937839 U07.1 11/08 covid positive, asymptomat ic-recover ed by Rhonda blakely covid positive continue supportive care monitor PO intake and need for supplement al O2 monitor need for adjuvent therapy to ED for acute decompensa tion [id number] Toma Alvarado MD [address] [address] 12/22/2021 07:56:46 12/27/2021 16:02:07 Chronic obstructive pulmonary disease 88856996 J41.0 Advair 250-50: one puff bidCombive nt Respimat 20-100: one puff tidalbuter ol HFA 1 puff q4h prnwill monitor Gastroesop hageal reflux disease without esophagitis 795836822 K21.9 famotidine 20 mg at hswill monitor Hypothyroidism 10055110 E03.8 levothyrox ine 75 mcg dailywill monitor Mixed anxi ety and depressive disorder 614505992 F41.8 mirtazapin e 15 mg at hswill monitor SARS-CoV-2 112110625 U07 .1 tested positive 11/08/21asy mptomatic coursereco shelli will continue to monitor [id number] SON LEIJA NP [address] [address] 01/19/2022 08:44:18 01/23/2022 11:01:49 Chronic obstructive pulmonary disease 60451235 J41.0 monitor for any sob, O2 if needed advair 250/50 bid combivent 20/100 tid flonase daily albuterol prn loratadine 10mg daily Hypothyroidism 87712165 E03.8 levothyrox ine 75 mcg daily will monitor Mixed anxi ety and depressive disorder 642920416 F41.8 mirtazapin e 15 mg qd. monitor mood Follow with NEG as able. Pain in right knee 71169 09974 24072 M25.561 lidoderm patch right kneediclof enac gel bidtylenol 650 mg q6hr prn Tuberculosis 21564349 A1 8.89 combivent tid, advair 250/50 bid proair with spacer q 4h prn. O2 prn to maintain sats >90% Monitor respirator y function F/U with resp therapist and pulmonary as able. Gastroesop hageal reflux disease without esophagitis 986108226 K21.9 pepcid 20 mg daily Vitamin deficiency 63820 002 E56.9 mvi dailythiam ine 100 mg dailyB6 daily [id number] KEILA BRASHER [address] [place] [address] 5 02/16/2022 11:50:24 02/20/2022 12:03:24 Chronic obstructive pulmonary disease 57609477 J41.0 monitor for any sob, O2 if needed advair 250/50 bid combivent 20/100 tid flonase daily albuterol prn loratadine 10mg daily Hypothyroidism 08453678 E03.8 levothyrox ine 75 mcg daily will monitor Mixed anxi ety and depressive disorder 989394134 F41.8 mirtazapin e 15 mg qd. monitor mood Follow with NEG as able. Pain in right knee 45193 84247 65116 M25.561 lidoderm patch right kneediclof enac gel bidtylenol 650 mg q6hr prn Tuberculosis 64413437 A1 8.89 combivent tid, advair 250/50 bid proair with spacer q 4h prn. O2 prn to maintain sats >90% Monitor respirator y function F/U with resp therapist and pulmonary as able. Gastroesop hageal reflux disease without esophagitis 516640417 K21.9 pepcid 20 mg daily Vitamin deficiency 17438 002 E56.9 mvi dailythiam ine 100 mg dailyB6 daily [id number] CHASE Eduardo [address] [address] 03/08/2022 11:23:24 03/13/2022 16:32:13 Cellulitis of finger of right hand 0950151754 5126605 L03.011 bacitracin cream apply qd till healedmoni tor. [id number] Toma Alvarado MD [address] [address] 03/30/2022 08:39:42 04/03/2022 11:43:48 Chronic obstructive pulmonary disease 79341095 J41.0 Advair 250-50: one puff bidCombive nt Respimat 20-100: one puff tidalbuter ol HFA 1 puff q4h prnwill monitor Gastroesop hageal reflux disease without esophagitis 389586298 K21.9 famotidine 20 mg at hswill monitor Hypothyroidism 94459068 E03.8 levothyrox ine 75 mcg dailywill monitor Mixed anxi ety and depressive disorder 861036670 F41.8 mirtazapin e 15 mg at hswill monitor Vitamin deficiency 23632 002 E56.9 pyridoxine 100 mg dailythiam ine 100 mg dailyMVI dailywill monitor Osteoarthritis 522462151 M17.11 APAP 650 mg q6h prndiclofe nac topical gel to right knee bid prnBengay cream to right knee q8h prnlidocai ne patch 4% to right knee dailywill monitor [id number] SON LEIJA NP [address] [address] 05/23/2022 13:08:08 05/29/2022 16:22:19 Chronic obstructive pulmonary disease 81608039 J41.0 Advair 250-50: one puff bidCombive nt Respimat 20-100: one puff tidalbuter ol HFA 1 puff q4h prnwill monitor Gastroesop hageal reflux disease without esophagitis 104009460 K21.9 famotidine 20 mg at hswill monitor Hypothyroidism 48519092 E03.8 levothyrox ine 75 mcg dailywill monitor Mixed anxi ety and depressive disorder 560929697 F41.8 mirtazapin e 15 mg at hswill monitor Vitamin deficiency 24650 002 E56.9 pyridoxine 100 mg dailythiam ine 100 mg dailyMVI dailywill monitor Osteoarthritis 445755316 M17.11 APAP 650 mg q6h prndiclofe nac topical gel to right knee bid prnBengay cream to right knee q8h prnlidocai ne patch 4% to right knee dailywill monitor Tuberculosis 77374555 A1 8.89 combivent tid, advair 250/50 bid proair with spacer q 4h prn. O2 prn to maintain sats >90% Monitor respirator y function F/U with resp therapist and pulmonary as able. [id number] MD KAREN Morales [address] [place] [address] 07/13/2022 07:10:41 07/17/2022 14:08:46 Chronic obstructive pulmonary disease 61368640 J41.0 Advair 250-50: one puff bidCombive nt Respimat 20-100: one puff tidalbuter ol HFA 1 puff q4h prnwill monitor Hypothyroidism 12067960 E03.8 levothyrox ine 75 mcg dailywill monitor Mixed anxi ety and depressive disorder 651511556 F41.8 mirtazapin e 15 mg at hswill monitor Gastroesop hageal reflux disease without esophagitis 428732376 K21.9 famotidine 20 mg at hswill monitor History of malignant neoplasm of ovary 990568097 Z85.43 s/p DYLLAN, SBOhas refused further treatment [id number] KEILA BRASHER WERO [address] [place] [address] 5 09/05/2022 17:06:29 09/11/2022 14:11:08 Chronic obstructive pulmonary disease 15449830 J41.0 Advair 250-50: one puff bidCombive nt Respimat 20-100: one puff tidalbuter ol HFA 1 puff q4h prnwill monitor Hypothyroidism 35070824 E03.8 levothyrox ine 75 mcg dailywill monitor Mixed anxi ety and depressive disorder 589706847 F41.8 mirtazapin e 15 mg at hswill monitor Gastroesop hageal reflux disease without esophagitis 457108001 K21.9 famotidine 20 mg at hswill monitor Tuberculosis 92271954 A1 8.89 combivent tid, advair 250/50 bid proair with spacer q 4h prn. O2 prn to maintain sats >90% Monitor respirator y function F/U with resp therapist and pulmonary as able. Toma Alvarado MD [address] [address] 12/07/2022 10:38:11 12/11/2022 08:03:41 Chronic obstructive pulmonary disease 74973040 J41.0 Advair 250-50: one puff bidCombive nt Respimat 20-100: one puff tidalbuter ol HFA 1 puff q4h prnwill monitor Mixed anxi ety and depressive disorder 533396901 F41.8 mirtazapin e 15 mg at hswill monitor Gastroesop hageal reflux disease without esophagitis 540850266 K21.9 famotidine 20 mg at hswill monitor Hypothyroidism 93556746 E03.8 levothyrox ine 75 mcg dailywill monitor Chronic pain 28745680 G8 9.29 diclofenac gel to right knee bid prnlidocai ne patch to right knee dailyAPAP 650 mg q6h prnwill monitor [id number] SON LEIJA NP [address] [address] 5 01/28/2023 14:21:07 01/31/2023 15:22:09 Chronic obstructive pulmonary disease 31525534 J41.0 Advair 250-50: one puff bidCombive nt Respimat 20-100: one puff tidalbuter ol HFA 1 puff q4h prnwill monitor Mixed anxi ety and depressive disorder 900861189 F41.8 mirtazapin e 15 mg at hswill monitor Gastroesop hageal reflux disease without esophagitis 362690715 K21.9 famotidine 20 mg at hswill monitor Hypothyroidism 80738866 E03.8 levothyrox ine 75 mcg dailywill monitor Chronic pain 17266166 G8 9.29 diclofenac gel to right knee bid prnlidocai ne patch to right knee dailyAPAP 650 mg q6h prnwill monitor [id number] KEILA BRASHER [address] [address] 02/15/2023 13:27:41 02/20/2023 16:52:34 Chronic obstructive pulmonary disease 20113930 J41.0 Advair 250-50: one puff bidCombive nt Respimat 20-100: one puff tidalbuter ol HFA 1 puff q4h prnwill monitor Mixed anxi ety and depressive disorder 088028816 F41.8 mirtazapin e 15 mg at hswill monitor Gastroesop hageal reflux disease without esophagitis 302254525 K21.9 famotidine 20 mg at hswill monitor Hypothyroidism 22424594 E03.8 levothyrox ine 75 mcg dailywill monitor Chronic pain 99353424 G8 9.29 diclofenac gel to right knee bid prnlidocai ne patch to right knee dailyAPAP 650 mg q6h prnwill monitor Vitamin deficiency 17308 002 E56.9 pyridoxine 100 mg dailythiam ine 100 mg dailyMVI dailywill monitor [id number] MD KAREN Pope WERO [address] [place] [phone] 5 03/28/2023 13:20:05 04/11/2023 13:24:13 Chronic obstructive pulmonary disease 11247568 J41.0 No current sxs.Contin ue Advair 250/50 BID, Combivent Respimat 1 puff TID and albuterol HFA 1 puff q 4 hrs prnMonitor resp. status. Mixed anxi ety and depressive disorder 246606702 F41.8 Mood good today.Cont inue mirtazapin e 15 mg at hsMonitor moodPsych follows, no GDR recommende d. Gastroesop hageal reflux disease without esophagitis 783493920 K21.9 Under good controlCon tinue famotidine 20 mg at hsMonitor for sxs Hypothyroidism 86886962 E03.8 Last TSH 02/2021 was WNLContinu e levothyrox ine 75 mcg dailyMonit or TSH yearly, will order with next labs. Chronic pain 85360974 G8 9.29 She says pain is adequately controlled .Continue diclofenac gel to right knee BID prn, lidocaine patch to right knee daily and APAP 650 mg q 6 hrs prnMonitor sxs. Vitamin deficiency 85982 002 E56.8 Continue pyridoxine 100 mg daily, thiamine 100 mg daily, and MVI dailyNo monitoring needed. [id number] KEILA BRASHER [address] [place] [phone] 5 04/05/2023 13:30:53 04/11/2023 13:56:07 Chronic obstructive pulmonary disease 63458496 J41.0 Advair 250-50: one puff bidCombive nt Respimat 20-100: one puff tidalbuter ol HFA 1 puff q4h prnwill monitor Mixed anxi ety and depressive disorder 897387570 F41.8 mirtazapin e 15 mg at hswill monitor [id number] KEILA BRASHER WERO [address] [place] [phone] 5 05/17/2023 10:17:44 05/21/2023 16:07:38 Chronic obstructive pulmonary disease 75785676 J41.0 Advair 250-50: one puff bidCombive nt Respimat 20-100: one puff tidalbuter ol HFA 1 puff q4h prnwill monitor Mixed anxi ety and depressive disorder 006255915 F41.8 mirtazapin e 15 mg at hswill monitor Gastroesop hageal reflux disease without esophagitis 680935668 K21.9 famotidine 20 mg at hswill monitor Hypothyroidism 36889824 E03.8 levothyrox ine 75 mcg dailywill monitor Chronic pain 17850447 G8 9.29 diclofenac gel to right knee bid prnlidocai ne patch to right knee dailyAPAP 650 mg q6h prnwill monitor Vitamin deficiency 04416 002 E56.9 pyridoxine 100 mg dailythiam ine 100 mg dailyMVI dailywill monitor [id number] KEILA BRASHER [address] [place] [address] 5 07/08/2023 13:04:17 07/09/2023 20:04:53 Pain of left knee region 1585860661 16836 M25.562 tylenol prnxray of left kneePT OT eval and treat prn [id number] MD KAREN Pope WEOR [address] [place] [address] [place] [address] 08/16/2023 13:59:50 08/20/2023 11:12:11 Pain of left knee region 5291272914 83057 M25.562 Says it's much better.Con tinue diclofenac gel 4 gms BID and APAP 650 mg q 6 hrs prn.Monito r sxs. Chronic ob structive pulmonary disease 43077272 J41.0 Continues at mild baseline.C ontinue Advair 250/50 BID, Combivent Respimat 1 puff TID and albuterol HFA 1 puff q 4 hrs prnMonitor resp. status. Mixed anxi ety and depressive disorder 083392921 F41.8 Mood remains good at most times.Cont inue mirtazapin e 15 mg qhsMonitor moodPsych continues to follow intermitte ntly, no GDR recommende d. Gastroesop hageal reflux disease without esophagitis 365712170 K21.9 No current sxs.Contin ue famotidine 20 mg qhsMonitor for sxs Hypothyroidism 70414076 E03.8 Last TSH was in ont inue levothyrox ine 75 mcg dailyMonit or TSH yearly, will order with next labs. Chronic pain 25077753 G8 9.29 As above.Also gets lidocaine patch to right knee daily.Elsy tor [id number] KEILA BRASHER [address] [place] [address] [place] [address] 10/09/2023 13:25:53 10/22/2023 10:00:48 Chronic obstructive pulmonary disease 54971934 J41.0 Advair 250-50: one puff bidCombive nt Respimat 20-100: one puff tidalbuter ol HFA 1 puff q4h prnwill monitor Mixed anxi ety and depressive disorder 621285305 F41.8 mirtazapin e 15 mg at hswill monitor Gastroesop hageal reflux disease without esophagitis 808718684 K21.9 famotidine 20 mg at hswill monitor Hypothyroidism 27139740 E03.8 levothyrox ine 75 mcg dailywill monitor Chronic pain 70885583 G8 9.29 diclofenac gel to right knee bid prnlidocai ne patch to right knee dailyAPAP 650 mg q6h prnwill monitor Vitamin deficiency 99938 002 E56.9 pyridoxine 100 mg dailythiam ine 100 mg dailyMVI dailywill monitor [id number] CHASE CHE [address] [address] 10/23/2023 11:46:55 10/30/2023 12:50:00 Contact dermatitis 86848132 L25.9 see hpihydroco rtisone 1% bid for 5 days and re evalPatien t encouraged to avoid scratching or touching affected areanursin g to offer prn tylenol for discomfort . [id number] Kianna Alvarez MD [facility] [address] [place] [phone] 12/10/2023 16:27:11 01/13/2024 15:10:49 Pain of left knee region 4529093878 91720 M25.562 Continues to do well with diclofenac gel 4 gms BID and APAP 650 mg q 6 hrs prn.Monito r sxs. Chronic ob structive pulmonary disease 81595387 J43.8 No recent exacerbati ons.Contin ue Advair 250/50 BID, Combivent Respimat 1 puff TID and albuterol HFA 1 puff q 4 hrs prnMonitor resp. status. Mixed anxi ety and depressive disorder 347739036 F41.8 Mood is stable, enjoys activities .Continue mirtazapin e 15 mg qhsMonitor moodPsych follows, last seen on 12/15 with no rec for med changes. Gastroesop hageal reflux disease without esophagitis 524421667 K21.9 No current sxs.Contin ue famotidine 20 mg qhsMonitor for sxs Hypothyroidism 40708789 E03.8 Last TSH in 08/2023 was sl. low at 0.17, no FT4 checked and no recheck done.Mandi nue levothyrox ine 75 mcg qd for nowRecheck TSH with FT4. Chronic pain 57279842 G8 9.29 As above.Also gets lidocaine patch to right knee daily.Elsy resendez [id number] CHASE CHE [address] [address] 01/30/2024 11:16:15 02/04/2024 12:17:43 Chronic obstructive pulmonary disease 18186309 J43.8 stableCont inue Advair 250/50 BID,contin ue Combivent Respimat 1 puff TIDcontinu e albuterol HFA 1 puff q 4 hrs prnMonitor resp. status. Mixed anxi ety and depressive disorder 064352934 F41.8 Continue mirtazapin e 15 mg qhsMonitor mood Gastroesop hageal reflux disease without esophagitis 300115355 K21.9 Continue famotidine 20 mg qhsMonitor for sxs Hypothyroidism 79743899 E03.8 Continue levothyrox ine 75 mcg qdmonitor labs prn Chronic pain 07686902 G8 9.29 As above.Also gets lidocaine patch to right knee daily.Elsy resendez [id number] CHASE CHE [address] [address] 03/12/2024 09:49:24 03/25/2024 14:50:38 Chronic obstructive pulmonary disease 92258704 J43.8 stableCont inue Advair 250/50 BID,contin ue Combivent Respimat 1 puff TIDcontinu e albuterol HFA 1 puff q 4 hrs prnMonitor resp. status. Mixed anxi ety and depressive disorder 794140545 F41.8 Continue mirtazapin e 15 mg qhsMonitor mood Gastroesop hageal reflux disease without esophagitis 270416428 K21.9 Continue famotidine 20 mg qhsMonitor for sxs Hypothyroidism 13434896 E03.8 Continue levothyrox ine 75 mcg qdmonitor labs prn Chronic pain 95720990 G8 9.29 As above.Also gets lidocaine patch to right knee daily.Elsy tor Vitamin deficiency 40005 002 E56.9 continue pyridoxine 100 mg daily ,thiamine 100 mg daily ,MVI daily Pain of knee region 1003 922417 M25.569 lidoderm patch right kneediclof enac gel bidtylenol 650 mg q6hr prn [id number] Kianna Alvarez MD [address] [place] [address] 04/17/2024 21:47:21 05/05/2024 07:56:21 Chronic obstructive pulmonary disease 66099390 J43.8 No recent exacerbati ons.Contin ue Advair 250/50 BID, Combivent Respimat 1 puff TID and albuterol HFA 1 puff q 4 hrs prnMonitor resp. status. Mixed anxi ety and depressive disorder 529553543 F41.8 Mood good tonight.Co ntinue mirtazapin e 15 mg qhsMonitor moodPsych follows, last seen on 03/23/24 with no rec for med changes. Gastroesop hageal reflux disease without esophagitis 738139392 K21.9 No current sxs.Contin ue famotidine 20 mg qhsMonitor for GI sxs Pain of le ft knee region 2610411300 97643 M25.562 Continues to do well with diclofenac gel 4 gms BID and APAP 650 mg q 6 hrs prn.Also uses lidocaine patch on right knee.Monit or sxs. Hypothyroidism 77658388 E03.8 Last TSH remains sl. low at 0.12, but with normal FT4.Contin ue levothyrox ine 75 mcg qd for nowRecheck TSH with FT4 in 3 months. Chronic pain 85567344 G8 9.29 As above.Elsy tor sxs [id number] [facility] CHE [address] [place] [address] 05/14/2024 13:40:54 05/19/2024 13:06:16 Psoriasis 4129779 L40.9 Pruritic half dollar size, scaly red patch noted at base of hairline/ nap of neckwill add triamcinol one cream BID for 14 daysmonito r for resolution . [id number] CHASE CHE [address] [place] [address] 05/19/2024 10:01:52 05/20/2024 14:50:20 Psoriasis 3335369 L40.9 Pruritic half dollar size, scaly red patch noted at base of hairline/ nap of neck- improvingc ontinue triamcinol one cream BID for 14 daysmonito r for resolution . [id number] [facility] [address] [address] 06/03/2024 13:59:00 06/05/2024 10:24:55 Chronic obstructive pulmonary disease [id number] J43.8 stableCont inue Advair 250/50 BID,contin ue Combivent Respimat 1 puff TIDcontinu e albuterol HFA 1 puff q 4 hrs prnMonitor resp. status. Mixed anxi ety and depressive disorder [id number] F41.8 mood has been stableCont inue mirtazapin e 15 mg qhspsych prn Gastroesop hageal reflux disease without esophagitis [id number] K21.9 Continue famotidine 20 mg qhsMonitor for sxs Hypothyroidism 96249572 E03.8 Continue levothyrox ine 75 mcg qdmonitor labs prn Chronic pain 90023357 G8 9.29 As above.Also gets lidocaine patch to right knee daily.Elsy tor Vitamin deficiency 62641 002 E56.9 continue pyridoxine 100 mg daily ,thiamine 100 mg daily ,MVI daily Pain of knee region 1003 565740 M25.569 lidoderm patch right kneediclof enac gel bidtylenol 650 mg q6hr prn Psoriasis 3360408 L40.9 resolved [id number] [facility] [address] [address] 07/23/2024 10:20:41 07/28/2024 15:44:44 Chronic obstructive pulmonary disease [id number] J43.8 stableCont inue Advair 250/50 BID,contin ue Combivent Respimat 1 puff TIDcontinu e albuterol HFA 1 puff q 4 hrs prnMonitor resp. status. Mixed anxi ety and depressive disorder 124622352 F41.8 mood has been stableCont inue mirtazapin e 15 mg qhspsych prn Gastroesop hageal reflux disease without esophagitis 021878649 K21.9 Continue famotidine 20 mg qhsMonitor for sxs Hypothyroidism 76292124 E03.8 Continue levothyrox ine 75 mcg qdmonitor labs prn Chronic pain 46806206 G8 9.29 As above.Also gets lidocaine patch to right knee daily.Elsy tor Vitamin deficiency 10297 002 E56.9 continue pyridoxine 100 mg daily ,thiamine 100 mg daily ,MVI daily Pain of knee region 1003 417564 M25.569 stable.lid oderm patch right kneediclof enac gel bidtylenol 650 mg q6hr prn Psoriasis 1412490 L40.9 resolved [id number] [facility] [address] [place] [address] 09/14/2024 12:31:36 09/22/2024 14:14:59 Chronic obstructive pulmonary disease [id number] J43.8 stableCont inue Advair 250/50 BID,contin ue Combivent Respimat 1 puff TIDcontinu e albuterol HFA 1 puff q 4 hrs prnMonitor resp. status. 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 mood has been stableCont inue mirtazapin e 15 mg qhspsych prn Gastroesop hageal reflux disease without esophagitis 940017689 K21.9 Continue famotidine 20 mg qhsMonitor for sxs Hypothyroidism 69420979 E03.8 Continue levothyrox ine 75 mcg qdmonitor labs prn Chronic pain 67520832 G8 9.29 As above.Also gets lidocaine patch to right knee daily.Elsy tor Vitamin deficiency 86585 002 E56.9 continue pyridoxine 100 mg daily ,thiamine 100 mg daily ,MVI daily Pain of knee region 1003 798337 M25.569 stable.lid oderm patch right kneediclof enac gel bidtylenol 650 mg q6hr prn [id number] [facility] [address] [address] 10/12/2024 10:37:58 10/13/2024 13:55:23 COVID-19 [id number] U07.1 we discussed antiviral, she is not [...] 05/19/2024 2 [place] Brittanie R Guiel [id number] Brittanie Guiel 05/19/2024 1 [place] [employer] Brittanie R Guiel [id number] Brittanie Guiel 06/03/2024 2 [place] Brittanie R Guiel [id number] Brittanie Guiel 06/03/2024 1 [place] [employer] Brittanie R Guiel [id number] Brittanie Guiel 07/23/2024 2 [place] Brittanie R Guiel [id number] Brittanie Guiel 07/23/2024 1 [place] [employer] Brittanie R Guiel [id number] Brittanie Guiel 09/14/2024 2 [place] Brittanie R Guiel [id number] Brittanie Guiel 09/14/2024 1 [place] [employer] Brittanie R Guiel [id number] Brittanie Guiel 10/12/2024 2 [place] Brittanie R Guiel [id number] Brittanie Guiel 10/12/2024 1 [place] [employer] Brittanie R Guiel [id number] Brittanie Guiel Notes Date Note Type Note Provider Name and Address Organization Details Recorded Time 05/19/2024 text/html This is an 83 yo woman, LTC resident with hx of Tb, hx of ovarian CA-s/p DYLLAN & BSO, COPD, and depression/anxiety . Seen today for acute rounding visit follow up for rash. [facility] [address] [facility], [address], [place], [address], [email or web address] 05/19/2024 13:26:13 06/03/2024 text/html This is an [...] in recreational activities daily. [facility] [address] [facility], [address], [place], [address], [email or web address] 06/03/2024 17:52:32 07/23/2024 text/html This is an 83 yo woman, LTC resident with a past medical history that includes Tb, hx of ovarian CA-s/p DYLLAN & BSO, COPD, and depression/anxiety . Seen for routine rounding. She us stable at her baseline in NAD. There are no acute concerns. [facility] [address] [facility], [address], [place], [address], [email or web address] 07/23/2024 13:36:45 09/14/2024 text/html This is an 83 yo woman, LTC resident with a past medical history that includes Tb, hx of ovarian CA-s/p DYLLAN & BSO, COPD, and depression/anxiety . Seen for routine rounding. She is stable at her baseline in NAD. There are no acute concerns. She is eating and drinking ok, no concerns with elimination. [facility] [address] [facility], [address], [place], [address], [email or web address] 09/18/2024 18:11:40 10/12/2024 text/html This is an [...] covid. reportable sx reviewed. [facility] [address] [facility], [address], [place], [address], [facility] [employer] 10/12/2024 15:53:56 OBGyn Episode No OBEpisode recorded.
[2024-11-16 08:33] LABS: Anion Gap 13 (12-20); Blood Urea Nitrogen 21 mg/dL (9-16); Calcium 8.6 mg/dL (8.4-10.2); Carbon Dioxide 20 mmol/L (22-29); Chloride 111 mmol/L (96-108); Estimated Glomerular Filt Rate > 60; Glucose Random 85 mg/dL (60-115); Potassium 3.6 mmol/L (3.3-5.1); Sodium 140 mmol/L (135-145)
== END 2024-11-16 06:22 | disposition home or self-care (01) ==
LOC: HO.MMNH3L 06:21
PROVIDERS: Visit Provider Family Medicine
DX: A15.0 Tuberculosis of lung (principal); J96.01 Acute respiratory failure with hypoxia
CPT/HCPCS: 36415; 80048; 85025

== ENCOUNTER 2024-12-14 06:15 | Outpatient (REF) | payer MEDICARE, SELFPAY ==
[2024-12-14 06:10] LABS: MANUAL DIFF FLAG NO
--- OUTSIDE RECORDS SUMMARY | 2024-12-14 06:20 | XMS_ITS | Data Portability ---
Author Organization [facility], Main Office Address [address] [place] [address] Care Team Providers Care [place]erry[place] Deckhand Name Role Phone KAREN CONTEH 3RD FLOOR [...] Recorded Time Chronic obstructiv e pulmonary disease 43647429 Active 2019 Kianna Alvarez MD [address], [address], [place], [address] , [facility] 0 22:40:16 Hypothyroi dism 67019642 Active 2019 Toma Alvarado MD [address], [address], [place], [address] , [facility] [employer] [facility] 0 09:30:52 SARS-CoV-2 Active 2019 SON LEIJA NP [address], [address], [place], [address] , [facility] 0 11:35:17 Pain in right knee Active 2020 SON LEIJA NP [address], [address], [place], [address] , [facility] 1 13:53:06 Gastroesop hageal reflux disease without esophagiti s 759371993 Active 2020 SON LEIJA NP [address], [address], [place], [address] , [facility] [employer] [facility] 1 12:16:37 Vitamin deficiency 49356794 Active 2020 SON LEIJA NP [address], [address], [place], [address] , [facility] [employer] [facility] 1 12:17:06 Pain of left knee region 9315178968769 09 Active 2022 SON LEIJA NP [address], [address], [place], [address] , [facility] [employer] [facility] 3 13:05:00 Chronic pain 08046093 Active 2023 Kianna Alvarez MD [address], [address], [place], [address] , [facility] [employer] [facility] 4 11:01:01 Tuberculos is 43099905 Active 2018 Hinamarie Alvarado [facility] 9 10:15:54 Healthcare associated bacterial pneumonia 852735702 Active 2018 Hina Alvarado [facility] 9 10:16:18 Diagnostic pneumomedi astinum Active 2018 Hina Alvarado [facility] 9 10:16:34 Severe protein-ca yobani malnutriti on (Bell: less than 60 percent of standard weight) 216068819 Active 2018 Hina Alvarado [facility] 9 10:17:04 Mediastina l emphysema 55508446 Active 2018 Hina Alvarado [facility] 9 10:17:42 History of malignant neoplasm of ovary 810376924 Active 2018 Hina Alvarado [facility] 9 10:18:05 Mixed anxiety and depressive disorder 389034182 Active 2018 [facility] 10:[facility]15 Problem Notes None recorded. [...] 122 mm[Hg] 70 mm[Hg] [facility] [address], [address], [place], [address], [employer] [facility] 4 10:03:14 Date Recorded Body height Oxygen saturation Oxygen saturation in Arterial blood by Pulse oximetry Body temperature Respiratory rate Heart rate Systolic blood pressure Diastolic blood pressure Provider Name and Address Organization Details Last Updated DateTime 4 149.86 cm 95 % 95 % 97.5 [degF] 20 /min 71 /min 120 mm[Hg] 75 mm[Hg] [facility] [address], [facility] [address], [place], [address], [employer] [facility] 4 14:03:38 Date Recorded Body height Heart rate Respiratory rate Body temperature Oxygen saturation Oxygen saturation in Arterial blood by Pulse oximetry Systolic blood pressure Diastolic blood pressure Provider Name and Address Organization Details Last Updated DateTime 4 149.86 cm 72 /min 18 /min 97.4 [degF] 96 % 96 % 134 mm[Hg] 76 mm[Hg] [facility] [address], [address], [place], [address], [employer] [facility] 4 13:34:43 Date Recorded Body height Heart rate Respiratory rate Body temperature Oxygen saturation Oxygen saturation in Arterial blood by Pulse oximetry Systolic blood pressure Diastolic blood pressure Provider Name and Address Organization Details Last Updated DateTime 4 149.86 cm 75 /min 18 /min 98 [degF] 98 % 98 % 131 mm[Hg] 69 mm[Hg] [facility] [address], [address], [place], [address], [employer] [facility] 4 18:09:49 Date Recorded Body height Heart rate Respiratory rate Body temperature Oxygen saturation Oxygen saturation in Arterial blood by Pulse oximetry Systolic blood pressure Diastolic blood pressure Provider Name and Address Organization Details Last Updated DateTime 4 149.86 cm 68 /min 18 /min 97.1 [degF] 96 % 96 % 134 mm[Hg] 70 mm[Hg] [facility] [address], [address], [place], [address], [facility] 4 15:34:38 Social History Question Answer Notes LastModified by Organizat ion Details LastModified Time Tobacco Smoking Status Former Smoker smoked 1.5 ppd, quit many yrs ago Kianna Alvarez MD [address], [address], [place], [address], [facility] 08/16/2023 17:37:37 Do You Have An Advance Directive? Yes DNI Otherwise Full Code [id number] Information not available 08/09/2020 What Is Your Level Of Alcohol Consumption? None [id number] Information not available 08/09/2020 How Much Tobacco Do You Chew? None [id number] Information not available 08/09/2020 What Is Your Code Status? DNI Information not available 03/28/2023 Do You Or Have You Ever Used E-cigarettes Or Vape? Never Used Electronic Cigarettes [id number] Information not available 08/09/2020 [facility] Information not available 03/28/2023 Legal Guardian? No Informati on not available 03/28/2023 Do You Have A Medical Power Of Support Clerk? Yes Not Invoked Information not available 03/28/2023 What Was The Date Of Your Most Recent Tobacco Screening? 08/16/2023 Information not available 08/16/2023 Do You Have An Out Of Hospital DNR? No Information not available 03/28/2023 What Is Your Relationship Status? Information not available 03/28/2023 Do You Or Have You Ever Used Smokeless Tobacco? Never Used Smokeless Tobacco [id number] Information not available 08/09/2020 Do You Use Any Illicit Or Recreational Drugs? No Information not available 03/28/2023 Has Tobacco Cessation Counseling Been Provided? No N/a As Pt. No Longer Smokes Information not available 03/28/2023 How Many Years Have You Smoked Tobacco? 60 [id number] Information not available 08/09/2020 Do You Or Have You Ever Used Any Other Forms Of Tobacco Or Nicotine? No Information not available 03/28/2023 Sex: Unknown Functional Status None recorded. Mental Status None recorded. Family History Relationship Description Onset Age of this Age Resolved Age Notes LastModified by Organization Details LastModified Time Father No current problems or disability [facility] Not available 08/21 09:44:07 Mother No current problems or disability [facility] Not available 08/21 09:44:07 Notes:N/C Medical History No medical history recorded. Gynecological HistoryNo gynecological history recorded. Obstetrics History GPAL:G 0 P 0 0 0 0 Immunizations Vaccine Type Date Status Note Provider Nam e and Address Organization Details Recorded Time Influenza, adjuvanted, quadrivalent, PF 08/27/2022 completed Gabriela gonzalez, [facility] 11/01/2023 11:51:08 Influenza, adjuvanted, quadrivalent, PF 05/20/2023 completed Gabriela gonzalez, [facility] 11/01/2023 11:51:23 Past Encounters Encounter ID Performer Location Encounter Start Date Encounter Closed Date Diagnosis/Indication Diagnosis SNOMED-CT Code Diagnosis ICD10 Code Diagnosis Note [id number] Hina CONTEH [address] [facility] [place] [address] 08/21/2019 09:44:29 09/01/2019 10:32:18 Tuberculosis 80211703 A18.89 continue Isoniazid, Rifampin, Pyrazinami de, Pyridoxine f/u at [facility] TB clinic on 08/25. Healthcare associated bacterial pneumonia 340059771 Y95 completed abx txcontinue brovana, pulmicort, duonebs scheduled and prn albuterolp ulmo and RT to follow here. 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 Mediastinal emphysema 16 554110 J98.2 pneumomedi astinum related to infection/ bronchosco pyno interventi on neededif resp sx develop will repeat cxr/CT chest Physical deconditioning 4599686421 9102 R68.89 PT/OT eval. [id number] Abhinav Gage MD [facility] [address] [place] [address] 08/24/2019 08:02:58 09/01/2019 10:59:44 Tuberculosis [id number] A15.0 see HPIfollowe d by ID of note in hospital case discussed with dept of public health ID and determined it was safe to take patient off airborne precaution s as she had been treated for > 14 daysf/u with [facility] clinic in [facility]cont[place] current Ab courseadd probioticu pdate ID with change in presentati onmonitor respirator y function Healthcare associated bacterial pneumonia 397648701 Y95 see HPIcomplet ed vanco and zosynsee above Asthenia 56052300 R53.1 PT OT eval and treatmonit or fall risk Severe protein-calorie malnutrition (Bell: less than 60 percent of standard weight) 717408784 E41 carrying dx from hospitaldi etary evalmonito r weights and PO intake History of malignant neoplasm of ovary 680589278 Z85.43 added to PMH [id number] Nichelle JONES [facility] [address] [place] [address] 09/01/2019 07:19:48 09/04/2019 15:23:56 Tuberculosis 81567755 A15.0 see HPIfollowe d by ID of note in hospital case discussed with dept of public health ID and determined it was safe to take patient off airborne precaution s as she had been treated for > 14 daysf/u with TB clinic todayconti e current Ab courseprob ioticupdat e ID with change in presentati onmonitor respirator y function Healthcare associated bacterial pneumonia 616169344 Y95 see HPIcomplet ed vanco and zosynsee above Asthenia 01699395 R53.1 PT OT eval and treatmonit or fall risk Severe protein-calorie malnutrition (Bell: less than 60 percent of standard weight) 143109042 E41 carrying dx from hospitaldi etary eval pt has gained 2 lbs in the past week according to weekly weight data, has good reported appetite. monitor weights [place] PO intake [id number] [address] [address] 09/08/2019 07:58:08 09/17/2019 14:56:26 Tuberculosis 48050733 A15.0 see HPIfollowe d by ID of [...] respirator y function Healthcare associated bacterial pneumonia 208426904 Y95 see HPIcomplet ed vanco and zosynsee above Asthenia 66567534 R53.1 PT OT eval and treatmonit or fall risk Severe protein-calorie malnutrition (Bell: less than 60 percent of standard weight) 214000240 E41 carrying dx from hospitaldi etary eval pt has good reported appetite. monitor weights and PO intake [id number] Nichelle CONTEH [address] [place] [address] 09/15/2019 07:35:21 09/23/2019 11:38:11 Tuberculosis [id number] A15.0 see HPIfollowe d by TB clinic [...] respirator y function Healthcare associated bacterial pneumonia 094753391 Y95 see HPIcomplet ed vanco and zosynsee above Asthenia 02119914 R53.1 PT OT eval and treatmonit or fall risk Severe protein-calorie malnutrition (Bell: less than 60 percent of standard weight) 271398882 E41 carrying dx from hospitaldi etary eval- pt now on ensures pt has good reported appetite. monitor weights [place] PO intake [id number] Nichelle CONTEH [address] [place] [address] 09/22/2019 09:39:42 09/29/2019 09:21:51 Tuberculosis 25942728 A15.0 see HPIfollowe d by TB clinic [...] O2 orders monitor respirator y function Asthenia 36535373 R53.1 Pt has been DCd from PT- she has reached her baseline, only walking about 30 ft with walker, varies with transfers. monitor fall risk Severe protein-calorie malnutrition (Bell: less than 60 percent of standard weight) 213547734 E41 carrying dx from hospital has lost about 9lbs in the past month pt on ensures tid will increase mirtazapin e to 15mg qd today monitor ?weight loss due to ovarian cancer History of malignant neoplasm of ovary 688677955 Z85.43 added to PMH Per family the pt had one day of treatment for this and then never followed up with this- she refused care. Mixed anxi ety and depressive disorder 489062093 F41.8 will order psych eval today monitor mood [id number] Nichelle CONTEH [address] [place] [address] 09/28/2019 07:22:29 10/01/2019 14:27:45 Tuberculosis 35200194 A15.0 see HPI stable. followed by TB [...] O2 orders monitor respirator y function Asthenia 84346904 R53.1 Pt has been DCd from PT- she has reached her baseline, only walking about 30 ft with walker, varies with transfers. monitor fall risk Severe protein-calorie malnutrition (Bell: less than 60 percent of standard weight) 526705344 E41 carrying dx from hospital has lost over 10lbs since her admission, however she appears to have leveled out. pt on ensures tid mirtazapin e increased to 15mg qd last week continue to monitor ?weight loss due to ovarian cancer History of malignant neoplasm of ovary 404627778 Z85.43 added to PMH Per family the pt had one day of treatment for this and then never followed up with this- she refused care. Mixed anxi ety and depressive disorder 190306203 F41.8 awaiting psych eval monitor mood [id number] Nichelle CONTEH [address] [place] [address] 10/08/2019 07:24:07 10/12/2019 16:27:09 Tuberculosis 80293181 A15.0 see HPI stable. followed by TB [...] less than 60 percent of standard weight) 687520779 E41 carrying dx from hospital has lost over 7lbs since her admission, appears to be stable at this time.pt on ensures tid mirtazapin e 15mg qd continue to monitor History of malignant neoplasm of ovary 032481565 Z85.43 added to PMH Per family the pt had one day of treatment for this and then never followed up with this- she refused care. Mixed anxi ety and depressive disorder 331385686 F41.8 pt recently seen by [facility], no consult notes in chart yet monitor mood [id number] Nichelle CONTEH [address] [facility] [place] [address] 10/12/2019 08:06:04 10/16/2019 13:50:57 Tuberculosis 67851045 A15.0 see HPI stable. followed by TB [...] less than 60 percent of standard weight) 432772510 E41 carrying dx from hospital pt on ensures tid mirtazapin e 15mg qd pt had initially lost weight, now improving continue to monitor Mixed anxi ety and depressive disorder 223746082 F41.8 pt recently seen by [facility], awaiting consult notes. monitor mood History of malignant neoplasm of ovary 167605997 Z85.43 added to PMH Per family the pt had one day of treatment for this and then never followed up with this- she refused care. [id number] Nichelle CONTEH [address] [facility] [place] [address] 10/19/2019 08:10:14 10/22/2019 14:29:13 Tuberculosis 85549264 A15.0 see HPI stable. followed by TB [...] less than 60 percent of standard weight) 220788936 E41 carrying dx from hospital pt on ensures tid mirtazapin e 15mg qd pt had initially lost weight, now improving continue to monitor Mixed anxi ety and depressive disorder 627345777 F41.8 mirtazapin e 15mg qd monitor mood psych following History of malignant neoplasm of ovary 255291186 Z85.43 added to PMH Per family the pt had one day of treatment for this and then never followed up with this- she refused care. [id number] MD KAREN Cooper [address] [facility] [place] [place] [address] 11/18/2019 15:07:44 11/22/2019 15:31:49 Tuberculosis 05616475 A15.0 followed by ID f/u with TB clinic [place] [facility] [place] current Ab courseupda te ID with change in presentati onmonitor respirator y functioncu rrently stable at baseline Nausea and vomiting 1692 1999 R11.2 appears secondary to medication administra tijaki have patient take zofran priormonit or for sx control [id number] Nichelle JONES WERO [address] [place] [address] [place] [address] 12/01/2019 12:14:48 12/11/2019 14:40:43 Tuberculosis 97633992 A15.0 followed by ID seen by tb [...] less than 60 percent of standard weight) 722121906 E41 carrying dx from hospital pt on ensures tid mirtazapin e 15mg qd pt continues to have weight loss recent DC of abx as above may be helpful, as these were likely causing her some nausea continue to monitor weights bi-weekly for 4 weeks Mixed anxi ety and depressive disorder 491049297 F41.8 mirtazapin e 15mg qd monitor mood psych following History of malignant neoplasm of ovary 243254413 Z85.43 added to PMH Per family the pt had one day of treatment for this and then never followed up with this- she refused care. [id number] Nichelle CONTEH [address] [place] [address] [place] [address] 12/29/2019 12:37:57 01/01/2020 15:52:34 Cough 91382568 R05 With associated chills, fatigue, body aches. Will check for flu and resp viral panel, cbc/cmp of note there is a resident on the floor +for flu A encourage fluids supportive care continue to monitor [id number] Nichelle JONES WERO [address] [place] [address] [place] [address] 01/15/2020 14:07:52 01/21/2020 13:07:58 Tuberculosis 24350413 A15.0 followed by ID continues on multiple [...] on site prn currently stable at baseline [id number] MD KAREN Pope [address] [place] [address] [place] [address] 01/22/2020 17:32:59 01/28/2020 18:46:52 Tuberculosis 94933348 A15.0 She is on ethambutol 800 mg [...] less than 60 percent of standard weight) 769149802 E41 She has lost 20# since here. BMI still in nl. range. Was given this dx in the hospital. Continue ensure TID and mirtazapin e 15 mg qd Continue to monitor weights Mixed anxi ety and depressive disorder 809733158 F41.8 Mood good today. Continue mirtazapin e 15 mg qd. monitor mood Follow with NEG as able. History of malignant neoplasm of ovary 788213873 Z85.43 Hx of. Had DYLLAN/BSO Per family the pt had one day of treatment for this and then never followed up with this- she refused care. Chronic ob structive pulmonary disease 56293559 J43.8 Likely with underlying COPD. Continue meds as above. Will need full PFTs when able. [id number] KEILA BRASHER [address] [place] [address] 03/18/2020 09:19:47 03/22/2020 10:40:26 Chronic obstructive pulmonary disease 55277689 J44.9 monitor for any sob, O2 if needed Mixed anxi ety and depressive disorder 941993855 F41.8 Continue mirtazapin e 15 mg qd. monitor mood Follow with NEG as able. Severe protein-calorie malnutrition (Bell: less than 60 percent of standard weight) 703383658 E43 Continue ensure TID and mirtazapin e 15 mg qd Continue to monitor weights Tuberculosis 23479562 A1 8.89 continue ethambutol 800 mg qd, isoniazid 300 mg qd and pyrazinami de 1000 mg qd Nebs all transition ed to inhalers, now on combivent QID, symbicort 80/4.5 two puffs BID and proair with spacer q 4h prn. Continue O2 prn to maintain sats >90% Monitor respirator y function F/U with resp therapist and pulmonary as able. [id number] KEILA BRASHER [address] [place] [address] 04/11/2020 10:32:37 04/19/2020 15:35:04 Mixed anxiety and depressive disorder 862788037 F41.8 Continue mirtazapin e 15 mg qd. monitor mood Follow with NEG as able. [id number] MD KAREN Morales [address] [place] [address] 05/20/2020 06:57:19 05/24/2020 10:36:19 Chronic obstructive pulmonary disease 00194071 J44.9 Symbicort 4.5-80: 2 puffs bidCombive nt respimat 20-100: one puff tidalbuter ol HFA 1 puff q4h prn will monitor History of malignant neoplasm of ovary 070428331 Z85.43 s/p DYLLAN, SBO; has refused further treatment Mixed anxi ety and depressive disorder 290105025 F41.8 mirtazapin e 15 mg at [facility] monitor Tuberculosis 98582260 A1 8.89 fu [facility] clinic Hypothyroidism 43955013 E03.8 levothyrox ine 75 mcg dailywill monitor [id number] KEILA BRASHER [address] [place] [address] 07/13/2020 10:24:49 07/15/2020 14:24:57 Chronic obstructive pulmonary disease 38534963 J44.9 monitor for any sob, O2 if needed symbicort 80/4.5 q12 hr combivent 20/100 tid flonase daily Healthcare associated bacterial pneumonia 707996671 J15.9 recovered Hypothyroidism 02665583 E03.9 levothyrox ine 75 mcg daily will monitor Mixed anxi ety and depressive disorder 667164012 F41.8 mirtazapin e 15 mg qd. monitor mood Follow with NEG as able. Tuberculosis 90817553 A1 8.89 combivent tid, symbicort 80/4.5 two puffs BID proair with spacer q 4h prn. Continue O2 prn to maintain sats >90% Monitor respirator y function F/U with resp therapist and pulmonary as able. Severe protein-calorie malnutrition (Bell: less than 60 percent of standard weight) 461762692 E43 ensure TID and mirtazapin e 15 mg qd thiamine 100 mg daily B6 100 daily Continue to monitor weights [id number] KEILA BRSAHER [address] [place] [address] 08/23/2020 11:08:00 08/25/2020 13:34:50 Chronic obstructive pulmonary disease 06953784 J44.9 monitor for any sob, O2 if needed symbicort 80/4.5 q12 hr combivent 20/100 tid flonase daily SARS-CoV-2 910687938 U07 .1 encourage po intake O2 prn consider IVF if she becomes anorexic [id number] SON LEIJA NP [facility] [address] [place] [address] 08/29/2020 12:18:09 08/31/2020 15:39:28 Chronic obstructive pulmonary disease 06986643 J44.9 monitor for any sob, O2 if needed symbicort 80/4.5 q12 hr combivent 20/100 tid flonase daily loratadine 10mg daily Healthcare associated bacterial pneumonia 735839505 J15.9 recovered History of malignant neoplasm of ovary 024878916 Z85.43 DYLLAN SBO no further treatment Hypothyroidism 11600539 E03.9 levothyrox ine 75 mcg daily will monitor Mediastinal emphysema 16 750012 J98.2 2019 pneumomedi astinum related to infection/ bronchosco py no interventi on needed if resp sx develop will repeat cxr/CT chest Mixed anxi ety and depressive disorder 129762160 F41.8 mirtazapin e 15 mg qd. monitor mood Follow with NEG as able. SARS-CoV-2 596743385 U07 .1 encourage po intake O2 prn consider IVF if she becomes anorexic Severe protein-calorie malnutrition (Bell: less than 60 percent of standard weight) 087032467 E43 ensure TID and mirtazapin e 15 mg qd thiamine 100 mg daily B6 100 daily Continue to monitor weights Tuberculosis 12524794 A1 8.89 combivent tid, symbicort 80/4.5 two puffs BID proair with spacer q 4h prn. Continue O2 prn to maintain sats >90% Monitor respirator y function F/U with resp therapist and pulmonary as able. [id number] SON LEIJA NP [facility] [address] [place] [address] 08/30/2020 08:12:16 09/02/2020 10:34:19 SARS-CoV-2 100501079 U07.1 encourage po intake O2 prn consider IVF if she becomes anorexic [id number] SON LEIJA NP [address] [address] 08/31/2020 11:03:06 09/02/2020 11:07:24 SARS-CoV-2 570123199 U07.1 11/3, 08/23 positive encourage po intake O2 prn consider IVF if she becomes anorexic [id number] SON LEIJA NP [address] [address] 09/01/2020 09:30:51 09/06/2020 10:25:57 SARS-CoV-2 201098982 U07.1 08/16, 08/23 positive encourage po intake O2 prn consider IVF if she becomes anorexic [id number] SON LEIJA NP [address] [address] 09/02/2020 12:59:16 09/06/2020 10:40:27 SARS-CoV-2 824193795 U07.1 08/16, 08/23 positive, 08/29 negative encourage po intake O2 prn consider IVF if she becomes anorexic [id number] Toma Alvarado MD [address] [address] 09/23/2020 06:10:55 09/27/2020 11:42:12 Chronic obstructive pulmonary disease 75883776 J41.0 Advair 250-50: one puff bidCombive nt Respimat 20-100: one puff tidalbuter ol HFA 1 puff q4h prn will monitor History of malignant neoplasm of ovary 749247485 Z85.43 s/p DYLLAN, SBO; has refused further treatment Hypothyroidism 20223096 E03.8 levothyrox ine 75 mcg dailywill monitor Mixed anxi ety and depressive disorder 171152222 F41.8 mirtazapin e 15 mg at [facility] monitor SARS-CoV-2 724995014 U07 .1 recoveredw ill continue to monitor [id number] SON LEIJA NP [address] [address] 11/15/2020 13:47:46 11/16/2020 14:55:19 Chronic obstructive pulmonary disease 05096417 J44.9 monitor for any sob, O2 if needed advair 250/50 daily combivent 20/100 tid flonase daily albuterol prn loratadine 10mg daily Healthcare associated bacterial pneumonia 664865382 J15.9 recovered History of malignant neoplasm of ovary 778999735 Z85.43 DYLLAN SBO no further treatment Hypothyroidism 69702648 E03.9 levothyrox ine 75 mcg daily will monitor Mediastinal emphysema 16 659363 J98.2 2019 pneumomedi astinum related to infection/ bronchosco py no interventi on needed if resp sx develop will repeat cxr/CT chest Mixed anxi ety and depressive disorder 443893158 F41.8 mirtazapin e 15 mg qd. monitor mood Follow with NEG as able. SARS-CoV-2 168192305 U07 .1 recovered 08/16, 08/23 positive, 08/29 negative encourage po intake O2 prn consider IVF if she becomes anorexic Severe protein-calorie malnutrition (Bell: less than 60 percent of standard weight) [id number] E43 ensure TID and mirtazapin e 15 mg qd thiamine 100 mg daily B6 100 daily Continue to monitor weights Tuberculosis 41232993 A1 8.89 combivent tid, advair daily proair with spacer q 4h prn. Continue O2 prn to maintain sats >90% Monitor respirator y function F/U with resp therapist and pulmonary as able. Pain in right knee 15904 04063 95118 M25.561 lidoderm patch right kneediclof enac gel bidtylenol 650 mg q6hr prn [id number] Toma Alvarado MD [address] [address] 01/06/2021 07:13:09 01/10/2021 10:35:09 Chronic obstructive pulmonary disease 51284048 J41.0 Advair 250-50: one puff bidCombive nt Respimat 20-100: one puff tidalbuter ol HFA 1 puff q4h prn will monitor History of malignant neoplasm of ovary 072115001 Z85.43 s/p DYLLAN, SBO; has refused further treatment Hypothyroidism 95784879 E03.8 levothyrox ine 75 mcg dailywill monitor Mixed anxi ety and depressive disorder 653269168 F41.8 mirtazapin e 15 mg at hswill monitor SARS-CoV-2 390261992 U07 .1 diagnosed 09/02 recovered will continue to monitor [id number] SON LEIJA NP [facility] [address] [place] [address] 5 03/01/2021 08:04:33 03/03/2021 13:38:48 Chronic obstructive pulmonary disease 99644761 J44.9 monitor for any sob, O2 if needed advair 250/50 bid combivent 20/100 tid flonase daily albuterol prn loratadine 10mg daily History of malignant neoplasm of ovary 021195345 Z85.43 DYLLAN SBO no further treatment Hypothyroidism 40469897 E03.9 levothyrox ine 75 mcg daily will monitor 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 monitor mood Follow with NEG as able. Pain in right knee 47586 48035 10590 M25.561 lidoderm patch right kneediclof enac gel bidtylenol 650 mg q6hr prn Severe protein-calorie malnutrition (Bell: less than 60 percent of standard weight) 545309366 E43 ensure TID mirtazapi ne 15 mg qd thiamine 100 mg daily B6 100 daily Continue to monitor weights Tuberculosis 04769010 A1 8.89 combivent tid, advair 250/50 bid proair with spacer q 4h prn. Continue O2 prn to maintain sats >90% Monitor respirator y function F/U with resp therapist and pulmonary as able. [id number] Toma Alvarado MD [address] [place] [address] 04/21/2021 06:57:11 05/02/2021 14:03:31 Chronic obstructive pulmonary disease 99569028 J41.0 Advair 250-50: one puff bidCombive nt Respimat 20-100: one puff tidalbuter ol HFA 1 puff q4h prnwill monitor History of malignant neoplasm of ovary 959079374 Z85.43 s/p DYLLAN, SBOhas refused further treatment Hypothyroidism 65118443 E03.8 levothyrox ine 75 mcg dailywill monitor Mixed anxi ety and depressive disorder 683113197 F41.8 mirtazapin e 15 mg at hswill monitor SARS-CoV-2 034111916 U07 .1 diagnosed 09/02 recovered will continue to monitor Gastroesop hageal reflux disease without esophagitis 471164536 K21.9 famotidine 20 mg at hswill monitor Acute conjunctivitis 537 68810 H10.011 improvingc omplete course of polytrim solutionwi ll monitor [id number] SON LEIJA NP [address] [address] 06/14/2021 11:54:10 06/16/2021 10:06:14 Chronic obstructive pulmonary disease 22159411 J41.0 monitor for any sob, O2 if needed advair 250/50 bid combivent 20/100 tid flonase daily albuterol prn loratadine 10mg daily Hypothyroidism 17165207 E03.8 levothyrox ine 75 mcg daily will monitor Mixed anxi ety and depressive disorder 480051598 F41.8 mirtazapin e 15 mg qd. monitor mood Follow with NEG as able. Pain in right knee 52800 54808 53519 M25.561 lidoderm patch right kneediclof enac gel bidtylenol 650 mg q6hr prn Tuberculosis 60243567 A1 8.89 combivent tid, advair 250/50 bid proair with spacer q 4h prn. O2 prn to maintain sats >90% Monitor respirator y function F/U with resp therapist and pulmonary as able. Gastroesop hageal reflux disease without esophagitis 914929433 K21.9 pepcid 20 mg daily Vitamin deficiency 82240 002 E56.9 mvi dailythiam ine 100 mg dailyB6 daily [id number] Toma Alvarado MD [address] [address] 08/23/2021 06:02:03 08/25/2021 11:44:21 Chronic obstructive pulmonary disease 32813690 J41.0 Advair 250-50: one puff bidCombive nt Respimat 20-100: one puff tidalbuter ol HFA 1 puff q4h prnwill monitor Gastroesop hageal reflux disease without esophagitis 736784123 K21.9 famotidine 20 mg at hswill monitor Hypothyroidism 99709395 E03.8 levothyrox ine 75 mcg dailywill monitor History of malignant neoplasm of ovary 930808871 Z85.43 s/p DYLLAN, SBOhas refused further treatment Mixed anxi ety and depressive disorder 429852604 F41.8 mirtazapin e 15 mg at hswill monitor Vitamin deficiency 15057 002 E56.8 pyridoxine 100 mg dailythiam ine 100 mg dailyMVI dailywill monitor Osteoarthritis 010118064 M17.11 APAP 650 mg q6h prndiclofe nac topical gel to right knee prnBengay cream to right knee q8h prnlidocai ne patch 4% to right knee dailywill monitor [id number] SON LEIJA NP [address] [address] 5 10/19/2021 12:58:57 10/24/2021 11:46:50 Chronic obstructive pulmonary disease 22412740 J41.0 monitor for any sob, O2 if needed advair 250/50 bid combivent 20/100 tid flonase daily albuterol prn loratadine 10mg daily Hypothyroidism 29986449 E03.8 levothyrox ine 75 mcg daily will monitor Mixed anxi ety and depressive disorder 742472278 F41.8 mirtazapin e 15 mg qd. monitor mood Follow with NEG as able. Pain in right knee 37573 05847 07721 M25.561 lidoderm patch right kneediclof enac gel bidtylenol 650 mg q6hr prn Tuberculosis 48007833 A1 8.89 combivent tid, advair 250/50 bid proair with spacer q 4h prn. O2 prn to maintain sats >90% Monitor respirator y function F/U with resp therapist and pulmonary as able. Gastroesop hageal reflux disease without esophagitis 595552894 K21.9 pepcid 20 mg daily Vitamin deficiency 38437 002 E56.9 mvi dailythiam ine 100 mg dailyB6 daily [id number] SON LEIJA NP [address] [address] 5 11/09/2021 09:05:30 11/15/2021 08:55:12 Chronic obstructive pulmonary disease 50765772 J41.0 monitor for any sob, O2 if needed advair 250/50 bid combivent 20/100 tid flonase daily albuterol prn loratadine 10mg daily Pain in right knee 32103 70859 70969 M25.561 lidoderm patch right kneediclof enac gel bidtylenol 650 mg q6hr prn [id number] SON LEIJA NP [address] [address] 5 11/10/2021 10:03:11 11/15/2021 10:48:07 SARS-CoV-2 402785262 U07.1 11/08 covid positive, asymptomat icPatient covid positiveco ntinue supportive caremonito r PO intake and need for supplement al H4hhsemaf need for adjuvent therapyto ED for acute decompensa tion [id number] SON LEIJA NP [address] [address] 11/13/2021 12:31:35 11/15/2021 11:47:51 SARS-CoV-2 639922974 U07.1 11/08 covid positive, asymptomat ic-recover ed by Rhonda blakely covid positive continue supportive care monitor PO intake and need for supplement al O2 monitor need for adjuvent therapy to ED for acute decompensa tion [id number] Toma Alvarado MD [address] [address] 5 12/22/2021 07:56:46 12/27/2021 16:02:07 Chronic obstructive pulmonary disease 99025757 J41.0 Advair 250-50: one puff bidCombive nt Respimat 20-100: one puff tidalbuter ol HFA 1 puff q4h prnwill monitor Gastroesop hageal reflux disease without esophagitis 127769156 K21.9 famotidine 20 mg at hswill monitor Hypothyroidism 55686726 E03.8 levothyrox ine 75 mcg dailywill monitor Mixed anxi ety and depressive disorder 252481362 F41.8 mirtazapin e 15 mg at hswill monitor SARS-CoV-2 415841629 U07 .1 tested positive 11/08/21asy mptomatic coursereco shelli will continue to monitor [id number] SON LEIJA NP [address] [address] 01/19/2022 08:44:18 01/23/2022 11:01:49 Chronic obstructive pulmonary disease 60195227 J41.0 monitor for any sob, O2 if needed advair 250/50 bid combivent 20/100 tid flonase daily albuterol prn loratadine 10mg daily Hypothyroidism 16610348 E03.8 levothyrox ine 75 mcg daily will monitor Mixed anxi ety and depressive disorder 569772719 F41.8 mirtazapin e 15 mg qd. monitor mood Follow with NEG as able. Pain in right knee 36762 68487 81489 M25.561 lidoderm patch right kneediclof enac gel bidtylenol 650 mg q6hr prn Tuberculosis 60092758 A1 8.89 combivent tid, advair 250/50 bid proair with spacer q 4h prn. O2 prn to maintain sats >90% Monitor respirator y function F/U with resp therapist and pulmonary as able. Gastroesop hageal reflux disease without esophagitis 138277820 K21.9 pepcid 20 mg daily Vitamin deficiency 35846 002 E56.9 mvi dailythiam ine 100 mg dailyB6 daily [id number] KEILA BRASHER [address] [place] [address] 5 02/16/2022 11:50:24 02/20/2022 12:03:24 Chronic obstructive pulmonary disease 99615976 J41.0 monitor for any sob, O2 if needed advair 250/50 bid combivent 20/100 tid flonase daily albuterol prn loratadine 10mg daily Hypothyroidism 78074896 E03.8 levothyrox ine 75 mcg daily will monitor Mixed anxi ety and depressive disorder 690510638 F41.8 mirtazapin e 15 mg qd. monitor mood Follow with NEG as able. Pain in right knee 62255 37739 68267 M25.561 lidoderm patch right kneediclof enac gel bidtylenol 650 mg q6hr prn Tuberculosis 29248331 A1 8.89 combivent tid, advair 250/50 bid proair with spacer q 4h prn. O2 prn to maintain sats >90% Monitor respirator y function F/U with resp therapist and pulmonary as able. Gastroesop hageal reflux disease without esophagitis 772225860 K21.9 pepcid 20 mg daily Vitamin deficiency 34458 002 E56.9 mvi dailythiam ine 100 mg dailyB6 daily [id number] CHASE Eduardo [address] [address] 5 03/08/2022 11:23:24 03/13/2022 16:32:13 Cellulitis of finger of right hand 7686125630 4221763 L03.011 bacitracin cream apply qd till healedmoni tor. [id number] Toma Alvarado MD [address] [address] 5 03/30/2022 08:39:42 04/03/2022 11:43:48 Chronic obstructive pulmonary disease 34791621 J41.0 Advair 250-50: one puff bidCombive nt Respimat 20-100: one puff tidalbuter ol HFA 1 puff q4h prnwill monitor Gastroesop hageal reflux disease without esophagitis 975526571 K21.9 famotidine 20 mg at hswill monitor Hypothyroidism 63886344 E03.8 levothyrox ine 75 mcg dailywill monitor Mixed anxi ety and depressive disorder 662569163 F41.8 mirtazapin e 15 mg at hswill monitor Vitamin deficiency 29397 002 E56.9 pyridoxine 100 mg dailythiam ine 100 mg dailyMVI dailywill monitor Osteoarthritis 462088862 M17.11 APAP 650 mg q6h prndiclofe nac topical gel to right knee bid prnBengay cream to right knee q8h prnlidocai ne patch 4% to right knee dailywill monitor [id number] SON LEIJA NP [address] [address] 5 05/23/2022 13:08:08 05/29/2022 16:22:19 Chronic obstructive pulmonary disease 94394788 J41.0 Advair 250-50: one puff bidCombive nt Respimat 20-100: one puff tidalbuter ol HFA 1 puff q4h prnwill monitor Gastroesop hageal reflux disease without esophagitis 227628675 K21.9 famotidine 20 mg at hswill monitor Hypothyroidism 95553068 E03.8 levothyrox ine 75 mcg dailywill monitor Mixed anxi ety and depressive disorder 766887759 F41.8 mirtazapin e 15 mg at hswill monitor Vitamin deficiency 87077 002 E56.9 pyridoxine 100 mg dailythiam ine 100 mg dailyMVI dailywill monitor Osteoarthritis 113389090 M17.11 APAP 650 mg q6h prndiclofe nac topical gel to right knee bid prnBengay cream to right knee q8h prnlidocai ne patch 4% to right knee dailywill monitor Tuberculosis 17144988 A1 8.89 combivent tid, advair 250/50 bid proair with spacer q 4h prn. O2 prn to maintain sats >90% Monitor respirator y function F/U with resp therapist and pulmonary as able. [id number] MD KAREN Morales [address] [place] [address] 5 07/13/2022 07:10:41 07/17/2022 14:08:46 Chronic obstructive pulmonary disease 62773730 J41.0 Advair 250-50: one puff bidCombive nt Respimat 20-100: one puff tidalbuter ol HFA 1 puff q4h prnwill monitor Hypothyroidism 72997749 E03.8 levothyrox ine 75 mcg dailywill monitor Mixed anxi ety and depressive disorder 782670642 F41.8 mirtazapin e 15 mg at hswill monitor Gastroesop hageal reflux disease without esophagitis 593856248 K21.9 famotidine 20 mg at hswill monitor History of malignant neoplasm of ovary 917436487 Z85.43 s/p DYLLAN, SBOhas refused further treatment [id number] KEILA BRASHER WERO [address] [place] [phone] 5 09/05/2022 17:06:29 09/11/2022 14:11:08 Chronic obstructive pulmonary disease 72883941 J41.0 Advair 250-50: one puff bidCombive nt Respimat 20-100: one puff tidalbuter ol HFA 1 puff q4h prnwill monitor Hypothyroidism 62662167 E03.8 levothyrox ine 75 mcg dailywill monitor Mixed anxi ety and depressive disorder 993025476 F41.8 mirtazapin e 15 mg at hswill monitor Gastroesop hageal reflux disease without esophagitis 005915246 K21.9 famotidine 20 mg at hswill monitor Tuberculosis 83566822 A1 8.89 combivent tid, advair 250/50 bid proair with spacer q 4h prn. O2 prn to maintain sats >90% Monitor respirator y function F/U with resp therapist and pulmonary as able. Toma Alvarado MD [address] [address] 5 12/07/2022 10:38:11 12/11/2022 08:03:41 Chronic obstructive pulmonary disease 66882855 J41.0 Advair 250-50: one puff bidCombive nt Respimat 20-100: one puff tidalbuter ol HFA 1 puff q4h prnwill monitor Mixed anxi ety and depressive disorder 512094754 F41.8 mirtazapin e 15 mg at hswill monitor Gastroesop hageal reflux disease without esophagitis 607869584 K21.9 famotidine 20 mg at hswill monitor Hypothyroidism 37673712 E03.8 levothyrox ine 75 mcg dailywill monitor Chronic pain 76012621 G8 9.29 diclofenac gel to right knee bid prnlidocai ne patch to right knee dailyAPAP 650 mg q6h prnwill monitor [id number] SON LEIJA NP [address] [address] 5 01/28/2023 14:21:07 01/31/2023 15:22:09 Chronic obstructive pulmonary disease 20191790 J41.0 Advair 250-50: one puff bidCombive nt Respimat 20-100: one puff tidalbuter ol HFA 1 puff q4h prnwill monitor Mixed anxi ety and depressive disorder 477735491 F41.8 mirtazapin e 15 mg at hswill monitor Gastroesop hageal reflux disease without esophagitis 268597525 K21.9 famotidine 20 mg at hswill monitor Hypothyroidism 26261493 E03.8 levothyrox ine 75 mcg dailywill monitor Chronic pain 70041700 G8 9.29 diclofenac gel to right knee bid prnlidocai ne patch to right knee dailyAPAP 650 mg q6h prnwill monitor [id number] KEILA BRASHER [address] [address] 02/15/2023 13:27:41 02/20/2023 16:52:34 Chronic obstructive pulmonary disease 22193656 J41.0 Advair 250-50: one puff bidCombive nt Respimat 20-100: one puff tidalbuter ol HFA 1 puff q4h prnwill monitor Mixed anxi ety and depressive disorder 690605978 F41.8 mirtazapin e 15 mg at hswill monitor Gastroesop hageal reflux disease without esophagitis 070525608 K21.9 famotidine 20 mg at hswill monitor Hypothyroidism 12239789 E03.8 levothyrox ine 75 mcg dailywill monitor Chronic pain 52571053 G8 9.29 diclofenac gel to right knee bid prnlidocai ne patch to right knee dailyAPAP 650 mg q6h prnwill monitor Vitamin deficiency 77822 002 E56.9 pyridoxine 100 mg dailythiam ine 100 mg dailyMVI dailywill monitor [id number] MD KAREN Pope WERO [address] [place] [phone] 5 03/28/2023 13:20:05 04/11/2023 13:24:13 Chronic obstructive pulmonary disease 77184514 J41.0 No current sxs.Contin ue Advair 250/50 BID, Combivent Respimat 1 puff TID and albuterol HFA 1 puff q 4 hrs prnMonitor resp. status. Mixed anxi ety and depressive disorder 620436873 F41.8 Mood good today.Cont inue mirtazapin e 15 mg at hsMonitor moodPsych follows, no GDR recommende d. Gastroesop hageal reflux disease without esophagitis 631178003 K21.9 Under good controlCon tinue famotidine 20 mg at hsMonitor for sxs Hypothyroidism 59819171 E03.8 Last TSH 02/2021 was WNLContinu e levothyrox ine 75 mcg dailyMonit or TSH yearly, will order with next labs. Chronic pain 32419822 G8 9.29 She says pain is adequately controlled .Continue diclofenac gel to right knee BID prn, lidocaine patch to right knee daily and APAP 650 mg q 6 hrs prnMonitor sxs. Vitamin deficiency 54970 002 E56.8 Continue pyridoxine 100 mg daily, thiamine 100 mg daily, and MVI dailyNo monitoring needed. [id number] KEILA BRASHER [address] [place] [address] 5 04/05/2023 13:30:53 04/11/2023 13:56:07 Chronic obstructive pulmonary disease 22309531 J41.0 Advair 250-50: one puff bidCombive nt Respimat 20-100: one puff tidalbuter ol HFA 1 puff q4h prnwill monitor Mixed anxi ety and depressive disorder 969008900 F41.8 mirtazapin e 15 mg at hswill monitor [id number] KEILA BRASHER WERO [address] [place] [address] 5 05/17/2023 10:17:44 05/21/2023 16:07:38 Chronic obstructive pulmonary disease 04516829 J41.0 Advair 250-50: one puff bidCombive nt Respimat 20-100: one puff tidalbuter ol HFA 1 puff q4h prnwill monitor Mixed anxi ety and depressive disorder 581333719 F41.8 mirtazapin e 15 mg at hswill monitor Gastroesop hageal reflux disease without esophagitis 719327927 K21.9 famotidine 20 mg at hswill monitor Hypothyroidism 30579510 E03.8 levothyrox ine 75 mcg dailywill monitor Chronic pain 66927379 G8 9.29 diclofenac gel to right knee bid prnlidocai ne patch to right knee dailyAPAP 650 mg q6h prnwill monitor Vitamin deficiency 11676 002 E56.9 pyridoxine 100 mg dailythiam ine 100 mg dailyMVI dailywill monitor [id number] KEILA BRASHER [address] [place] [address]476 5 07/08/2023 13:04:17 07/09/2023 20:04:53 Pain of left knee region 7053580235 56252 M25.562 tylenol prnxray of left kneePT OT eval and treat prn [id number] MD KAREN Pope WERO [address] [place] [address] [place] [address] 08/16/2023 13:59:50 08/20/2023 11:12:11 Pain of left knee region 3379602203 54707 M25.562 Says it's much better.Con tinue diclofenac gel 4 gms BID and APAP 650 mg q 6 hrs prn.Monito r sxs. Chronic ob structive pulmonary disease 63235571 J41.0 Continues at mild baseline.C ontinue Advair 250/50 BID, Combivent Respimat 1 puff TID and albuterol HFA 1 puff q 4 hrs prnMonitor resp. status. Mixed anxi ety and depressive disorder 006452269 F41.8 Mood remains good at most times.Cont inue mirtazapin e 15 mg qhsMonitor moodPsych continues to follow intermitte ntly, no GDR recommende d. Gastroesop hageal reflux disease without esophagitis 586972750 K21.9 No current sxs.Contin ue famotidine 20 mg qhsMonitor for sxs Hypothyroidism 64208242 E03.8 Last TSH was in ont inue levothyrox ine 75 mcg dailyMonit or TSH yearly, will order with next labs. Chronic pain 03796800 G8 9.29 As above.Also gets lidocaine patch to right knee daily.Elsy tor [id number] KEILA BRASHER [address] [place] [address] [place] [address] 10/09/2023 13:25:53 10/22/2023 10:00:48 Chronic obstructive pulmonary disease 66526781 J41.0 Advair 250-50: one puff bidCombive nt Respimat 20-100: one puff tidalbuter ol HFA 1 puff q4h prnwill monitor Mixed anxi ety and depressive disorder 326080862 F41.8 mirtazapin e 15 mg at hswill monitor Gastroesop hageal reflux disease without esophagitis 614455408 K21.9 famotidine 20 mg at hswill monitor Hypothyroidism 98545077 E03.8 levothyrox ine 75 mcg dailywill monitor Chronic pain 10239596 G8 9.29 diclofenac gel to right knee bid prnlidocai ne patch to right knee dailyAPAP 650 mg q6h prnwill monitor Vitamin deficiency 37640 002 E56.9 pyridoxine 100 mg dailythiam ine 100 mg dailyMVI dailywill monitor [id number] [facility] [address] [address] 5 10/23/2023 11:46:55 10/30/2023 12:50:00 Contact dermatitis 50147898 L25.9 see hpihydroco rtisone 1% bid for 5 days and re evalPatien t encouraged to avoid scratching or touching affected areanursin g to offer prn tylenol for discomfort . [id number] Kianna Alvarez MD [facility] [address] [place] [address] 5 12/10/2023 16:27:11 01/13/2024 15:10:49 Pain of left knee region 0613419644 13130 M25.562 Continues to do well with diclofenac gel 4 gms BID and APAP 650 mg q 6 hrs prn.Monito r sxs. Chronic ob structive pulmonary disease 92756869 J43.8 No recent exacerbati ons.Contin ue Advair 250/50 BID, Combivent Respimat 1 puff TID and albuterol HFA 1 puff q 4 hrs prnMonitor resp. status. Mixed anxi ety and depressive disorder 333519185 F41.8 Mood is stable, enjoys activities .Continue mirtazapin e 15 mg qhsMonitor moodPsych follows, last seen on 12/15 with no rec for med changes. Gastroesop hageal reflux disease without esophagitis 260595565 K21.9 No current sxs.Contin ue famotidine 20 mg qhsMonitor for sxs Hypothyroidism 50211040 E03.8 Last TSH in 08/2023 was sl. low at 0.17, no FT4 checked and no recheck done.Mandi nue levothyrox ine 75 mcg qd for nowRecheck TSH with FT4. Chronic pain 05314137 G8 9.29 As above.Also gets lidocaine patch to right knee daily.Elsy resendez [id number] [facility] [address] [address] 01/30/2024 11:16:15 02/04/2024 12:17:43 Chronic obstructive pulmonary disease 74222681 J43.8 stableCont inue Advair 250/50 BID,contin ue Combivent Respimat 1 puff TIDcontinu e albuterol HFA 1 puff q 4 hrs prnMonitor resp. status. Mixed anxi ety and depressive disorder 043593181 F41.8 Continue mirtazapin e 15 mg qhsMonitor mood Gastroesop hageal reflux disease without esophagitis 910473965 K21.9 Continue famotidine 20 mg qhsMonitor for sxs Hypothyroidism 04144244 E03.8 Continue levothyrox ine 75 mcg qdmonitor labs prn Chronic pain 24477810 G8 9.29 As above.Also gets lidocaine patch to right knee daily.Elsy resendez [id number] [facility] [address] [address] 5 03/12/2024 09:49:24 03/25/2024 14:50:38 Chronic obstructive pulmonary disease 93564588 J43.8 stableCont inue Advair 250/50 BID,contin ue Combivent Respimat 1 puff TIDcontinu e albuterol HFA 1 puff q 4 hrs prnMonitor resp. status. Mixed anxi ety and depressive disorder 272979413 F41.8 Continue mirtazapin e 15 mg qhsMonitor mood Gastroesop hageal reflux disease without esophagitis 080536670 K21.9 Continue famotidine 20 mg qhsMonitor for sxs Hypothyroidism 05291678 E03.8 Continue levothyrox ine 75 mcg qdmonitor labs prn Chronic pain 82261971 G8 9.29 As above.Also gets lidocaine patch to right knee daily.Elsy tor Vitamin deficiency 57732 002 E56.9 continue pyridoxine 100 mg daily ,thiamine 100 mg daily ,MVI daily Pain of knee region 1003 292913 M25.569 lidoderm patch right kneediclof enac gel bidtylenol 650 mg q6hr prn [id number] Kianna Alvarez MD [address] [place] [address] 5 04/17/2024 21:47:21 05/05/2024 07:56:21 Chronic obstructive pulmonary disease 13431370 J43.8 No recent exacerbati ons.Contin ue Advair 250/50 BID, Combivent Respimat 1 puff TID and albuterol HFA 1 puff q 4 hrs prnMonitor resp. status. Mixed anxi ety and depressive disorder 501911070 F41.8 Mood good tonight.Co ntinue mirtazapin e 15 mg qhsMonitor moodPsych follows, last seen on 03/23/24 with no rec for med changes. Gastroesop hageal reflux disease without esophagitis 852137901 K21.9 No current sxs.Contin ue famotidine 20 mg qhsMonitor for GI sxs Pain of le ft knee region 5337982537 91464 M25.562 Continues to do well with diclofenac gel 4 gms BID and APAP 650 mg q 6 hrs prn.Also uses lidocaine patch on right knee.Monit or sxs. Hypothyroidism 61644220 E03.8 Last TSH remains sl. low at 0.12, but with normal FT4.Contin ue levothyrox ine 75 mcg qd for nowRecheck TSH with FT4 in 3 months. Chronic pain 73228799 G8 9.29 As above.Elsy tor sxs [id number] [facility] [address] [place] [address] 05/14/2024 13:40:54 05/19/2024 13:06:16 Psoriasis 1271779 L40.9 Pruritic half dollar size, scaly red patch noted at base of hairline/ nap of neckwill add triamcinol one cream BID for 14 daysmonito r for resolution . [id number] [facility] [address] [place] [address] 5 05/19/2024 10:01:52 05/20/2024 14:50:20 Psoriasis 0465476 L40.9 Pruritic half dollar size, scaly red patch noted at base of hairline/ nap of neck- improvingc ontinue triamcinol one cream BID for 14 daysmonito r for resolution . [id number] [facility] [address] [address] 5 06/03/2024 13:59:00 06/05/2024 10:24:55 Chronic obstructive pulmonary disease 89063932 J43.8 stableCont inue Advair 250/50 BID,contin ue Combivent Respimat 1 puff TIDcontinu e albuterol HFA 1 puff q 4 hrs prnMonitor resp. status. Mixed anxi ety and depressive disorder [id number] F41.8 mood has been stableCont inue mirtazapin e 15 mg qhspsych prn Gastroesop hageal reflux disease without esophagitis [id number] K21.9 Continue famotidine 20 mg qhsMonitor for sxs Hypothyroidism [id number] E03.8 Continue levothyrox ine 75 mcg qdmonitor labs prn Chronic pain 81586147 G8 9.29 As above.Also gets lidocaine patch to right knee daily.Elsy tor Vitamin deficiency 91920 002 E56.9 continue pyridoxine 100 mg daily ,thiamine 100 mg daily ,MVI daily Pain of knee region 1003 746443 M25.569 lidoderm patch right kneediclof enac gel bidtylenol 650 mg q6hr prn Psoriasis 1006537 L40.9 resolved [id number] [facility] [address] [address] 07/23/2024 10:20:41 07/28/2024 15:44:44 Chronic obstructive pulmonary disease [id number] J43.8 stableCont inue Advair 250/50 BID,contin ue Combivent Respimat 1 puff TIDcontinu e albuterol HFA 1 puff q 4 hrs prnMonitor resp. status. Mixed anxi ety and depressive disorder [id number] F41.8 mood has been stableCont inue mirtazapin e 15 mg qhspsych prn Gastroesop hageal reflux disease without esophagitis 365053327 K21.9 Continue famotidine 20 mg qhsMonitor for sxs Hypothyroidism 45331189 E03.8 Continue levothyrox ine 75 mcg qdmonitor labs prn Chronic pain 27632137 G8 9.29 As above.Also gets lidocaine patch to right knee daily.Elsy tor Vitamin deficiency 43877 002 E56.9 continue pyridoxine 100 mg daily ,thiamine 100 mg daily ,MVI daily Pain of knee region 1003 710908 M25.569 stable.lid oderm patch right kneediclof enac gel bidtylenol 650 mg q6hr prn Psoriasis 4795255 L40.9 resolved [id number] [facility] [address] [place] [address] 09/14/2024 12:31:36 09/22/2024 14:14:59 Chronic obstructive pulmonary disease [id number] J43.8 stableCont inue Advair 250/50 BID,contin ue Combivent Respimat 1 puff TIDcontinu e albuterol HFA 1 puff q 4 hrs prnMonitor resp. status. 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 mood has been stableCont inue mirtazapin e 15 mg qhspsych prn Gastroesop hageal reflux disease without esophagitis 299015349 K21.9 Continue famotidine 20 mg qhsMonitor for sxs Hypothyroidism 74788352 E03.8 Continue levothyrox ine 75 mcg qdmonitor labs prn Chronic pain 68921428 G8 9.29 As above.Also gets lidocaine patch to right knee daily.Elsy tor Vitamin deficiency 70378 002 E56.9 continue pyridoxine 100 mg daily ,thiamine 100 mg daily ,MVI daily Pain of knee region 1003 467969 M25.569 stable.lid oderm patch right kneediclof enac gel bidtylenol 650 mg q6hr prn [id number] [facility] [address] [address] 10/12/2024 10:37:58 10/13/2024 13:55:23 COVID-19 [id number] U07.1 we discussed antiviral, she is not [...] 05/19/2024 2 [place] Brittanie R Guiel [id number] Brittanie Guiel 05/19/2024 1 [place] [employer] [place] Brittanie R Guiel [id number] Brittanie Guiel 06/03/2024 2 [place] Brittanie R Guiel [id number] Brittanie Guiel 06/03/2024 1 [place] [employer] Brittanie R Guiel [id number] Brittanie Guiel 07/23/2024 2 [place] Brittanie R Guiel [id number] Brittanie Guiel 07/23/2024 1 [place] [employer] Brittanie R Guiel [id number] Brittanie Guiel 09/14/2024 2 [place] Brittanie R Guiel [id number] Brittanie Guiel 09/14/2024 1 [place] [employer] Brittanie R Guiel [id number] Brittanie Guiel 10/12/2024 2 [place] Brittanie R Guiel [id number] Brittanie Guiel 10/12/2024 1 [place] [employer] Brittanie R Guiel [id number] Brittanie Guiel Notes Date Note Type Note Provider Name and Address Organization Details Recorded Time 05/19/2024 text/html This is an 83 yo woman, LTC resident with hx of Tb, hx of ovarian CA-s/p DYLLAN & BSO, COPD, and depression/anxiety . Seen today for acute rounding visit follow up for rash. [facility] [address], [address], [place], [address], [employer] 05/19/2024 13:26:13 06/03/2024 text/html This is an [...] in recreational activities daily. [facility] [address], [address], [place], [address], [employer] 06/03/2024 17:52:32 07/23/2024 text/html This is an 83 yo woman, LTC resident with a past medical history that includes Tb, hx of ovarian CA-s/p DYLLAN & BSO, COPD, and depression/anxiety . Seen for routine rounding. She us stable at her baseline in NAD. There are no acute concerns. [facility] [address], [address], [place], [address], [employer] 07/23/2024 13:36:45 09/14/2024 text/html This is an 83 yo woman, LTC resident with a past medical history that includes Tb, hx of ovarian CA-s/p DYLLAN & BSO, COPD, and depression/anxiety . Seen for routine rounding. She is stable at her baseline in NAD. There are no acute concerns. She is eating and drinking ok, no concerns with elimination. [facility] [address], [address], [place], [address], [employer] 09/18/2024 18:11:40 10/12/2024 text/html This is an [...] covid. reportable sx reviewed. [facility] [address], [address], [place], [address], [facility] 10/12/2024 15:53:56 OBGyn Episode No OBEpisode recorded.
--- OUTSIDE RECORDS SUMMARY | 2024-12-14 06:20 | XMS_ITS | Clinical Summary ---
Author Organization [facility] Address [facility] [place] [address] Care Team Providers Care Rail Car Repairer Name Role Phone Alejandra Mo MD Primary Care Provider [phone] Allergies No known active allergies Medications Medication Sig Dispensed Refills Start Date End Date Status Multiple Vitamins-Minerals (Multivitamin Adults) Tab Take by mouth. 0 Active Albuterol Sulfate 108 (90 Base) MCG/ACT AEROSOL POWDER,BREATH ACTIVATED Inhale 2 Puffs into the lungs 3 times daily. 0 Active atorvastatin (LIPITOR) 10 MG tablet Take 1 tablet by mouth daily for 360 days. 30 tablet 11 01/30/2021 Active Active Problems Problem Noted Date Hyperlipidemia 01/30/2021 Tuberculosis of lung 01/26/2021 History of ovarian cancer 01/26/2021 Former heavy tobacco smoker 01/26/2021 Social History Tobacco Use Types Packs/Day Years Used Date Smoking Tobacco: Former Cigarettes 50 Smokeless Tobacco: Never Alcohol Use Standard Drinks/Week Comments Never 0 (1 standard drink = 0.6 oz pur e alcohol) Sex Assigned at Date Recorded Not on file Last Filed Vital Signs Vital Sign Reading Time Taken Comments Blood Pressure 118/68 01/26/2021 9:17 AM EDT Pulse 72 01/26/2021 9:17 AM EDT Temperature 36.7 ??C (98.1 ??F) 01/26/2021 9:17 AM ED T Respiratory Rate 12 01/26/2021 9:17 AM EDT Oxygen Saturation - - Inhaled Oxygen Concentration - - Weight - - Height - - Body Mass Index - - Plan of Treatment Health Maintenance Due Date Last Done Comments Covid-19 Vaccine (#1) 1941 DEPRESSION SCREEN 1953 DTAP/TDAP/TD (1 - Tdap) 1960 MAMMOGRAM 1981 SHINGLES VACCINE (1 of 2) 1991 BONE DENSITY SCREENING 2006 PNEUMOCOCCAL VACCINE (1 - PCV) 2006 FALL RISK ASSESSMENT 01/26/2022 01/26/2021 INFLUENZA (#1) 2024 BMI CHECK/ADVISE 10/14/2024 CHOLESTEROL SCREENING 01/26/2026 01/26/2021 Care Teams Rail Car Repairer Relationship Specialty Start Date End Date Alejandra Mo MD PCP - General Internal Medicine 12/21/20
--- OUTSIDE RECORDS SUMMARY | 2024-12-14 06:20 | XMS_ITS | Encounter Summary ---
Author Organization [facility] Address [address] [place] [address] Care Team Providers Care Child Care Group Leader Name Role Phone Alejandra Mo MD Primary Care Provider [phone] Encounter Details Date Type Department Care Team Description 01/30/2021 Refill Internal Medicine - [address], [address] [place] [address] Alejandra Mo MD [address] [place] [address] Social History Tobacco Use Types Packs/Day Years Used Date Smoking Tobacco: Former Cigarettes 50 Smokeless Tobacco: Never Alcohol Use Standard Drinks/Week Comments Never 0 (1 standard drink = 0.6 oz pur e alcohol) Sex Assigned at Date Recorded Not on file COVID-19 Exposure Response Date Recorded In the last month, have you been in contact with someone who was confirmed or suspected to have Coronavirus / COVID-19? No / Unsure 01/26/2021 8:37 AM EDT documented as of this encounter Plan of Treatment Not on file documented as of this encounter Visit Diagnoses Not on filedocumented in this encounter Care Teams Child Care Group Leader Relationship Specialty Start Date End Date Alejandra Mo MD PCP - General Internal Medicine 12/21/20 documented as of this encounter
--- OUTSIDE RECORDS SUMMARY | 2024-12-14 06:21 | XMS_ITS | Clinical Summary ---
Author Organization [facility] Address [address] [place] [address] Care Team Providers Care Travel Clerk Name Role Phone Alejandra Mo MD Primary Care Provider [phone] Surgical History Surgery Date Site/Laterality Comments ANKLE SURGERY PROCEDURE: HISTORICAL ANKLE SURGERY OTHER SURGICAL HISTORY PROCEDURE: SD TOTAL ABDOMINAL HYSTERECT W/WO RMVL TUBE OVARY [...] drink = 0.6 oz pur e alcohol) Comments Unknown Sex and Gender Information Value Date Recorded Sex Assigned at Not on file Legal Sex Female 6:47 PM EST Gender Identity Not on file Sexual Orientation Not on file Obstetrics History Plan of Treatment Health Maintenance Due Date Last Done Comments DTaP,Tdap,and Td Vaccines (1 - Tdap) 1960 Pneumococcal Vaccine: 50+ Ye ars (1 of 1 - PCV) 1991 Zoster Vaccines (1 of 2) 1991 RSV Immunization Patients 60 + Years Old (1 - 1-dose 75+ series) 2016 COVID-19 Vaccine ( - 2023-2 5 season) 2024 Influenza Vaccine (#1) 2024 [...] patient's age to complete this topic Meningococcal B Vacine Aged Out No lo nger eligible based on patient's age to complete this topic RSV Immunization Patients Un kathleen 20 months Aged Out No longer eligible b ased on patient's age to complete this topic Varicella Vaccines Aged Out No longer eligible based on patient's age to complete this topic Advance Directives Documents on File Type Date Recorded Patient Journalism Instructor Expl anation Health Care Decision (hx) 08/21/2019 AD MYERS DIRECTIVE Health Care Decision (hx) 07/28/2019 AD MYERS DIRECTIVE Care Teams Travel Clerk Relationship Specialty Start Date End Date Alejandra Mo MD PCP - General Internal Medicine 12/21/20
[2024-12-14 06:53] LABS: Basophils Absolute Auto 0.1 X10*3/uL (0.0-0.2); Eosinophils Absolute Auto 0.1 X10*3/uL (0.0-0.4); Eosinophils Percent Auto 2.3 % (0-4); Hematocrit 42.9 % (37.0-47.0); Hemoglobin 14.3 g/dl (12.0-16.0); Imm Gran Abs Auto 0.02 X10*3/uL (0.00-0.03); Imm Gran Pct Auto 0.4 % (0.0-0.4); Lymphocytes Absolute Auto 1.9 X10*3/uL (1.2-4.9); Lymphocytes Percent Auto 39.7 % (20-40); Mean Corpuscular HGB Conc 33.3 g/dl (31.0-35.0); Mean Corpuscular Hemoglobin 30.8 pg (27.0-33.0); Mean Corpuscular Volume 92.3 fL (80.0-98.0); Monocytes Absolute Auto 0.4 X10*3/uL (0.1-1.2); Monocytes Percent Auto 8.5 % (2-11); Neutrophils Absolute Auto 2.3 x10*3/uL (2.0-8.3); Neutrophils Percent Auto 48.1 % (45-73); Platelet Count 205 X10*3/uL (160-400); Red Blood Count 4.65 X10*6/uL (4.20-5.50); Red Cell Distribution Width 14.4 % (11.0-16.0); White Blood Count 4.8 X10*3/uL (4.8-10.8)
[2024-12-14 07:29] LABS: Anion Gap 11 (12-20); Blood Urea Nitrogen 19 mg/dL (9-16); Calcium 9.2 mg/dL (8.4-10.2); Carbon Dioxide 23 mmol/L (22-29); Chloride 110 mmol/L (96-108); Estimated Glomerular Filt Rate > 60; Glucose Random 73 mg/dL (60-115); Potassium 3.9 mmol/L (3.3-5.1); Sodium 140 mmol/L (135-145)
== END 2024-12-14 06:16 | disposition home or self-care (01) ==
LOC: HO.MMNH3L 06:15
PROVIDERS: Visit Provider Family Medicine
DX: J96.01 Acute respiratory failure with hypoxia (principal); A15.0 Tuberculosis of lung
CPT/HCPCS: 36415; 80048; 85025

== ENCOUNTER 2025-01-18 05:50 | Outpatient (REF) | payer MEDICARE, SELFPAY ==
[2025-01-18 05:41] LABS: MANUAL DIFF FLAG NO
--- OUTSIDE RECORDS SUMMARY | 2025-01-18 06:04 | XMS_ITS | Data Portability ---
Author Organization [facility], Main Office Address [address] [facility], [address] [place] [address] Care Team Providers Care Human Resources Intern Name Role Phone KAREN CONTEH 3RD FLOOR OTHER [phone] Assessment Encounter Date Assessment Date Assessment LastModified by Organization Details LastModified Time 01/10/2025 01/10/2025 labs 12/14: Na 140-K 3.9-bun 19- cr 0.8-wbc 4.8-hgb 14.3-hct 42.9-plt 205 [email or web address] Not available 01/11/2025 10:17:02 Plan of Treatment Reminders Order Date Submit [...] Recorded Time Chronic obstructiv e pulmonary disease 18641820 Active 2019 Kianna Alvarez MD [address] [facility], [facility] [address], [place], [address] , [facility] 0 22:40:16 Hypothyroi dism 79894142 Active 2019 Toma Alvarado MD [address] [facility], [address], [place], [address] , [facility] [employer] 0 09:30:52 SARS-CoV-2 Active 2019 SON LEIJA NP [address] [facility], [address], [place], [address] , [facility] [employer] 0 11:35:17 Pain in right knee Active 2020 SON LEIJA NP [address] [facility], [address], [place], [address] , [place] [facility] 1 13:53:06 Gastroesop hageal reflux disease without esophagiti s 677816391 Active 2020 SON LEIJA NP [address] [facility], [address], [place], [address] , [facility] 1 12:16:37 Vitamin deficiency 03498999 Active 2020 SON LEIJA NP [address] [facility], [address], [place], [address] , [place] [facility] 1 12:17:06 Pain of left knee region [id number] 09 Active 2022 SON LEIJA NP [address] [facility], [address], [place], [address] , [facility] 3 13:05:00 Chronic pain 82682805 Active 2023 Kianna Alvarez MD [address] [facility], [address], [place], [address] , [facility] 4 11:01:01 Tuberculos is 17587732 Active 2018 Hina gonzalez, [facility] [employer] [facility] 9 10:15:54 Healthcare associated bacterial pneumonia 725567822 Active 2018 Hina gonzalez, [facility] [employer] [facility] 9 10:16:18 Diagnostic pneumomedi astinum Active 2018 Hina gonzalez, [facility] [employer] [facility] 9 10:16:34 Severe protein-ca yobani malnutriti on (Bell: less than 60 percent of standard weight) 469673652 Active 2018 Hina gonzalez, [facility] [employer] [facility] 9 10:17:04 Mediastina l emphysema 45686748 Active 2018 Hina gonzalez, [facility] [employer] [facility] 9 10:17:42 History of malignant neoplasm of ovary 329932001 Active 2018 Hina gonzalez, [facility] 9 10:18:05 Mixed anxiety and depressive disorder 698794582 Active 2018 Nichelle gonzalez, [employer] 9 10:56:15 Problem Notes None recorded. Medical Equipment None Reported. Allergies No known drug allergies Vitals Date Recorded Body height Oxygen saturation Oxygen saturation in Arterial blood by Pulse oximetry Body temperature Respiratory rate Heart rate Systolic blood pressure Diastolic blood pressure Provider Name and Address Organization Details Last Updated DateTime 4 149.86 cm 95 % 95 % 97.5 [degF] 20 /min 71 /min 120 mm[Hg] 75 mm[Hg] THOMAS CHEP [address] [facility], [address], [place], [address], [facility] 4 14:03:38 Date Recorded Body height Heart rate Respiratory rate Body temperature Oxygen saturation Oxygen saturation in Arterial blood by Pulse oximetry Systolic blood pressure Diastolic blood pressure Provider Name and Address Organization Details Last Updated DateTime 4 149.86 cm 72 /min 18 /min 97.4 [degF] 96 % 96 % 134 mm[Hg] 76 mm[Hg] CHASE CHE [address] [facility], [address], [place], [address], [facility] 4 13:34:43 Date Recorded Body height Heart rate Respiratory rate Body temperature Oxygen saturation Oxygen saturation in Arterial blood by Pulse oximetry Systolic blood pressure Diastolic blood pressure Provider Name and Address Organization Details Last Updated DateTime 4 149.86 cm 75 /min 18 /min 98 [degF] 98 % 98 % 131 mm[Hg] 69 mm[Hg] CHASE CHE [address] , [address], [place], [address], [facility] 4 18:09:49 Date Recorded Body height Heart rate Respiratory rate Body temperature Oxygen saturation Oxygen saturation in Arterial blood by Pulse oximetry Systolic blood pressure Diastolic blood pressure Provider Name and Address Organization Details Last Updated DateTime 4 149.86 cm 68 /min 18 /min 97.1 [degF] 96 % 96 % 134 mm[Hg] 70 mm[Hg] CH[facility] [address] [facility], [address], [place], [address], [facility] 4 15:34:38 Date Recorded Body height Heart rate Respiratory rate Body temperature Oxygen saturation Oxygen saturation in Arterial blood by Pulse oximetry Systolic blood pressure Diastolic blood pressure Provider Name and Address Organization Details Last Updated DateTime 5 149.86 cm 78 /min 18 /min 97.7 [degF] 94 % 94 % 118 mm[Hg] 67 mm[Hg] CH[facility] [address] [facility], [address], [place], [address], [facility] 5 10:17:43 Social History Question Answer Notes LastModified by Organizat ion Details LastModified Time Tobacco Smoking Status Former Smoker smoked 1.5 ppd, quit many yrs ago Kianna Alvarez MD [address] [facility], [address], [place], [address], [facility] 08/16/2023 17:37:37 Do You Have An Advance Directive? Yes DNI Otherwise Full Code [id number] Information not available 08/09/2020 What Is Your Level Of Alcohol Consumption? None [id number] Information not available 08/09/2020 How Much Tobacco Do You Chew? None [id number] Information not available 08/09/2020 What Is Your Code Status? DNI Information not available 03/28/2023 Do You Or Have You Ever Used E-cigarettes Or Vape? Never Used Electronic Cigarettes [id number] Information not available 08/09/2020 Where Do You Live? [facility] Information not available 03/28/2023 Legal Guardian? No Informati on not available 03/28/2023 Do You Have A Medical Power Of [employer] Information Architect? Yes Not Invoked Information not available 03/28/2023 What Was The Date Of Your Most Recent Tobacco Screening? 08/16/2023 Information not available 08/16/2023 Do You Have An Out Of Hospital DNR? No Information not available 03/28/2023 What Is Your Relationship Status? Information not available 03/28/2023 Do You Or Have You Ever Used Smokeless Tobacco? Never Used Smokeless Tobacco [id number] Information not available 08/09/2020 Do You Use Any Illicit Or Recreational Drugs? No Information not available 03/28/2023 Has Tobacco Cessation Counseling Been Provided? No N/a As Pt. No Longer Smokes Information not available 03/28/2023 How Many Years Have You Smoked Tobacco? 60 [id number] Information not available 08/09/2020 Do You Or Have You Ever Used Any Other Forms Of Tobacco Or Nicotine? No Information not available 03/28/2023 Sex: Unknown Functional Status None recorded. Mental Status None recorded. Family History Relationship Description Onset Age of this Age Resolved Age Notes LastModified by Organization Details LastModified Time Father No current problems or disability [facility] Not available 08/21 09:44:07 Mother No current problems or disability [facility] Not available 08/21 09:44:07 Notes:N/C Medical History No medical history recorded. Gynecological HistoryNo gynecological history recorded. Obstetrics History GPAL:G 0 P 0 0 0 0 Immunizations Vaccine Type Date Status Note Provider Nam e and Address Organization Details Recorded Time Influenza, adjuvanted, quadrivalent, PF 08/27/2022 completed Gabriela David [facility] 11/01/2023 11:51:08 Influenza, adjuvanted, quadrivalent, PF 05/20/2023 completed [facility] 11/01/2023 11:51:23 Past Encounters Encounter ID Performer Location Encounter Start Date Encounter Closed Date Diagnosis/Indication Diagnosis SNOMED-CT Code Diagnosis ICD10 Code Diagnosis Note [id number] Hina CONTEH [address] [place] [address] 08/21/2019 09:44:29 09/01/2019 10:32:18 Tuberculosis 56442667 A18.89 continue Isoniazid, Rifampin, Pyrazinami de, Pyridoxine f/u at [facility] TB clinic on 08/25. Healthcare associated bacterial pneumonia [id number] Y95 completed abx txcontinue brovana, pulmicort, duonebs scheduled and prn albuterolp ulmo and RT to follow here. 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 Mediastinal emphysema 16 800745 J98.2 pneumomedi astinum related to infection/ bronchosco pyno interventi on neededif resp sx develop will repeat cxr/CT chest Physical deconditioning 4586624628 9102 R68.89 PT/OT eval. [id number] Abhinav Gage MD [address] [address] 08/24/2019 08:02:58 09/01/2019 10:59:44 Tuberculosis 29327617 A15.0 see HPIfollowe d by ID of note in hospital case discussed with dept of public health ID and determined it was safe to take patient off airborne precaution s as she had been treated for > 14 daysf[facility] courseadd probioticu pdate ID with change in presentati onmonitor respirator y function Healthcare associated bacterial pneumonia [id number] Y95 see HPIcomplet ed vanco and zosynsee above Asthenia 53674538 R53.1 PT OT eval and treatmonit or fall risk Severe protein-calorie malnutrition (Bell: less than 60 percent of standard weight) 795631982 E41 carrying dx from hospitaldi etary evalmonito r weights and PO intake History of malignant neoplasm of ovary 235175532 Z85.43 added to PMH [id number] Nichelle Miah [address] [address] 09/01/2019 07:19:48 09/04/2019 15:23:56 Tuberculosis 95786457 A15.0 see HPIfollowe d by ID of note in hospital case discussed with dept of public health ID and determined it was safe to take patient off airborne precaution s as she had been treated for > 14 daysf/u with TB clinic todayconti nue current Ab courseprob ioticupdat e ID with change in presentati onmonitor respirator y function Healthcare associated bacterial pneumonia [id number] Y95 see HPIcomplet ed vanco and zosynsee above Asthenia 01527978 R53.1 PT OT eval and treatmonit or fall risk Severe protein-calorie malnutrition (Bell: less than 60 percent of standard weight) 095733628 E41 carrying dx from hospitaldi etary eval pt has gained 2 lbs in the past week according to weekly weight data, has good reported appetite. monitor weights [place] intake [id number] Nichelle Saunders [address] [place] [address] 09/08/2019 07:58:08 09/17/2019 14:56:26 Tuberculosis 46688212 A15.0 see HPIcorina garibay by ID of note in hospital case [...] respirator y function Healthcare associated bacterial pneumonia 918361710 Y95 see HPIcomplet ed trey above Asthenia 95504526 R53.1 PT OT eval and treatmonit or fall risk Severe protein-calorie malnutrition (Bell: less than 60 percent of standard weight) 623892255 E41 carrying dx from hospitaldi etary eval pt has good reported appetite. monitor weights and PO intake [id number] Nichelle JONES [address] [place] [address] 09/15/2019 07:35:21 09/23/2019 11:38:11 Tuberculosis 69556691 A15.0 see Jalen garibay by TB clinic of note in hospital [...] respirator y function Healthcare associated bacterial pneumonia [id number] Y95 see HPIcomplet ed vanco and zosynsee above Asthenia 40813456 R53.1 PT OT eval and treatmonit or fall risk Severe protein-calorie malnutrition (Bell: less than 60 percent of standard weight) 396650778 E41 carrying dx from hospitaldi etary eval- pt now on ensures pt has good reported appetite. monitor weights [place] intake [id number] Nichelle CONTEH [address] [facility] [place] [address] 09/22/2019 09:39:42 09/29/2019 09:21:51 Tuberculosis [id number] A15.0 see HPIfollchristian d by TB clinic of note in [...] O2 orders monitor respirator y function Asthenia 01804381 R53.1 Pt has been DCd from PT- she has reached her baseline, only walking about 30 ft with walker, varies with transfers. monitor fall risk Severe protein-calorie malnutrition (Bell: less than 60 percent of standard weight) 868403164 E41 carrying dx from hospital has lost about 9lbs in the past month pt on ensures tid will increase mirtazapin e to 15mg qd today monitor ?weight loss due to ovarian cancer History of malignant neoplasm of ovary 989925454 Z85.43 added to PMH Per family the pt had one day of treatment for this and then never followed up with this- she refused care. Mixed anxi ety and depressive disorder 737562917 F41.8 will order psych eval today monitor mood [id number] Nichelle CONTEH [address] [facility] [place] [address] 09/28/2019 07:22:29 10/01/2019 14:27:45 Tuberculosis 52593782 A15.0 see HPI stable. followed by TB [...] O2 orders monitor respirator y function Asthenia 67035518 R53.1 Pt has been DCd from PT- she has reached her baseline, only walking about 30 ft with walker, varies with transfers. monitor fall risk Severe protein-calorie malnutrition (Bell: less than 60 percent of standard weight) 122414271 E41 carrying dx from hospital has lost over 10lbs since her admission, however she appears to have leveled out. pt on ensures tid mirtazapin e increased to 15mg qd last week continue to monitor ?weight loss due to ovarian cancer History of malignant neoplasm of ovary 289808566 Z85.43 added to PMH Per family the pt had one day of treatment for this and then never followed up with this- she refused care. Mixed anxi ety and depressive disorder 992853116 F41.8 awaiting psych eval monitor mood [id number] Nichelle CONTEH [address] [place] [address] 10/08/2019 07:24:07 10/12/2019 16:27:09 Tuberculosis 73577599 A15.0 see HPI stable. followed by TB [...] less than 60 percent of standard weight) 314914677 E41 carrying dx from hospital has lost over 7lbs since her admission, appears to be stable at this time.pt on ensures tid mirtazapin e 15mg qd continue to monitor History of malignant neoplasm of ovary 604120781 Z85.43 added to PMH Per family the pt had one day of treatment for this and then never followed up with this- she refused care. Mixed anxi ety and depressive disorder 333584553 F41.8 pt recently seen by [facility], no consult notes in chart yet monitor mood [id number] Nichelle CONTEH [address] [place] [address] 10/12/2019 08:06:04 10/16/2019 13:50:57 Tuberculosis 50624840 A15.0 see HPI stable. followed by TB [...] less than 60 percent of standard weight) 233737483 E41 carrying dx from hospital pt on ensures tid mirtazapin e 15mg qd pt had initially lost weight, now improving continue to monitor Mixed anxi ety and depressive disorder 251029519 F41.8 pt recently seen by [facility], awaiting consult notes. monitor mood History of malignant neoplasm of ovary 435980346 Z85.43 added to PMH Per family the pt had one day of treatment for this and then never followed up with this- she refused care. [id number] Nichelle CONTEH [address] [place] [address] 10/19/2019 08:10:14 10/22/2019 14:29:13 Tuberculosis 76378890 A15.0 see HPI stable. followed by TB [...] less than 60 percent of standard weight) 535032160 E41 carrying dx from hospital pt on ensures tid mirtazapin e 15mg qd pt had initially lost weight, now improving continue to monitor Mixed anxi ety and depressive disorder 395837673 F41.8 mirtazapin e 15mg qd monitor mood psych following History of malignant neoplasm of ovary 977985662 Z85.43 added to PMH Per family the pt had one day of treatment for this and then never followed up with this- she refused care. [id number] MD KAREN Cooper [address] [place] [address] 11/18/2019 15:07:44 11/22/2019 15:31:49 Tuberculosis 45355127 A15.0 followed by ID f[facility] [place] [facility] current Ab courseupda te ID with change in presentati onmonitor respirator y functioncu rrently stable at baseline Nausea and vomiting 1692 1999 R11.2 appears secondary to medication administra tionwill have patient take zofran priormonit or for sx control [id number] Nichelle CONTEH [address] [place] [address] 12/01/2019 12:14:48 12/11/2019 14:40:43 Tuberculosis 15384197 A15.0 followed by ID seen by tb [...] less than 60 percent of standard weight) 164518141 E41 carrying dx from hospital pt on ensures tid mirtazapin e 15mg qd pt continues to have weight loss recent DC of abx as above may be helpful, as these were likely causing her some nausea continue to monitor weights bi-weekly for 4 weeks Mixed anxi ety and depressive disorder 057393692 F41.8 mirtazapin e 15mg qd monitor mood psych following History of malignant neoplasm of ovary 677297735 Z85.43 added to PMH Per family the pt had one day of treatment for this and then never followed up with this- she refused care. [id number] Nichelle Chapa [place] [address] 12/29/2019 12:37:57 01/01/2020 15:52:34 Cough 99208375 R05 With associated chills, fatigue, body aches. Will check for flu and resp viral panel, cbc/cmp of note there is a resident on the floor +for flu A encourage fluids supportive care continue to monitor [id number] Nichelle Chapa [place] [address] 01/15/2020 14:07:52 01/21/2020 13:07:58 Tuberculosis 98125683 A15.0 followed by ID continues on multiple [...] on site prn currently stable at baseline [id number] Kianna Alvarez MD [facility] W[facility] Chap[address] [facility] [place] [address] 01/22/2020 17:32:59 01/28/2020 18:46:52 Tuberculosis 67681233 A15.0 She is on ethambutol 800 mg [...] less than 60 percent of standard weight) 412195297 E41 She has lost 20# since here. BMI still in nl. range. Was given this dx in the hospital. Continue ensure TID and mirtazapin e 15 mg qd Continue to monitor weights Mixed anxi ety and depressive disorder 760083236 F41.8 Mood good today. Continue mirtazapin e 15 mg qd. monitor mood Follow with NEG as able. History of malignant neoplasm of ovary 321703542 Z85.43 Hx of. Had DYLLAN/BSO Per family the pt had one day of treatment for this and then never followed up with this- she refused care. Chronic ob structive pulmonary disease 27841407 J43.8 Likely with underlying COPD. Continue meds as above. Will need full PFTs when able. [id number] KEILA BRASHER [address] [place] [address] 03/18/2020 09:19:47 03/22/2020 10:40:26 Chronic obstructive pulmonary disease 18378698 J44.9 monitor for any sob, O2 if needed Mixed anxi ety and depressive disorder 653444772 F41.8 Continue mirtazapin e 15 mg qd. monitor mood Follow with NEG as able. Severe protein-calorie malnutrition (Bell: less than 60 percent of standard weight) 893466817 E43 Continue ensure TID and mirtazapin e 15 mg qd Continue to monitor weights Tuberculosis 01253299 A1 8.89 continue ethambutol 800 mg qd, isoniazid 300 mg qd and pyrazinami de 1000 mg qd Nebs all transition ed to inhalers, now on combivent QID, symbicort 80/4.5 two puffs BID and proair with spacer q 4h prn. Continue O2 prn to maintain sats >90% Monitor respirator y function F/U with resp therapist and pulmonary as able. [id number] KEILA BRASHER [address] [place] [address] 04/11/2020 10:32:37 04/19/2020 15:35:04 Mixed anxiety and depressive disorder 340858463 F41.8 Continue mirtazapin e 15 mg qd. monitor mood Follow with NEG as able. [id number] Toma Alvarado MD [address] [address] 05/20/2020 06:57:19 05/24/2020 10:36:19 Chronic obstructive pulmonary disease 34893513 J44.9 Symbicort 4.5-80: 2 puffs bidCombive nt respimat 20-100: one puff tidalbuter ol HFA 1 puff q4h prn will monitor History of malignant neoplasm of ovary 181036185 Z85.43 s/p DYLLAN, SBO; has refused further treatment Mixed anxi ety and depressive disorder 490279217 F41.8 mirtazapin e 15 mg at [facility]swill monitor Tuberculosis 74070661 A1 8.89 fu [facility] clinic Hypothyroidism 15789171 E03.8 levothyrox ine 75 mcg dailywill monitor [id number] KEILA BRASHER [address] [place] [address] 07/13/2020 10:24:49 07/15/2020 14:24:57 Chronic obstructive pulmonary disease 90953173 J44.9 monitor for any sob, O2 if needed symbicort 80/4.5 q12 hr combivent 20/100 tid flonase daily Healthcare associated bacterial pneumonia 919728387 J15.9 recovered Hypothyroidism 78590452 E03.9 levothyrox ine 75 mcg daily will monitor Mixed anxi ety and depressive disorder 334272977 F41.8 mirtazapin e 15 mg qd. monitor mood Follow with NEG as able. Tuberculosis 04809262 A1 8.89 combivent tid, symbicort 80/4.5 two puffs BID proair with spacer q 4h prn. Continue O2 prn to maintain sats >90% Monitor respirator y function F/U with resp therapist and pulmonary as able. Severe protein-calorie malnutrition (Bell: less than 60 percent of standard weight) 864697550 E43 ensure TID and mirtazapin e 15 mg qd thiamine 100 mg daily B6 100 daily Continue to monitor weights [id number] KEILA BRASHER [address] [place] [address] 08/23/2020 11:08:00 08/25/2020 13:34:50 Chronic obstructive pulmonary disease 18374653 J44.9 monitor for any sob, O2 if needed symbicort 80/4.5 q12 hr combivent 20/100 tid flonase daily SARS-CoV-2 592886970 U07 .1 encourage po intake O2 prn consider IVF if she becomes anorexic [id number] SON LEIJA NP [address] [address] 08/29/2020 12:18:09 08/31/2020 15:39:28 Chronic obstructive pulmonary disease 30472010 J44.9 monitor for any sob, O2 if needed symbicort 80/4.5 q12 hr combivent 20/100 tid flonase daily loratadine 10mg daily Healthcare associated bacterial pneumonia 951277519 J15.9 recovered History of malignant neoplasm of ovary 588594950 Z85.43 DYLLAN SBO no further treatment Hypothyroidism 74627902 E03.9 levothyrox ine 75 mcg daily will monitor Mediastinal emphysema 16 231432 J98.2 2019 pneumomedi astinum related to infection/ bronchosco py no interventi on needed if resp sx develop will repeat cxr/CT chest Mixed anxi ety and depressive disorder 423971715 F41.8 mirtazapin e 15 mg qd. monitor mood Follow with NEG as able. SARS-CoV-2 821019153 U07 .1 encourage po intake O2 prn consider IVF if she becomes anorexic Severe protein-calorie malnutrition (Bell: less than 60 percent of standard weight) 959292336 E43 ensure TID and mirtazapin e 15 mg qd thiamine 100 mg daily B6 100 daily Continue to monitor weights Tuberculosis 74609134 A1 8.89 combivent tid, symbicort 80/4.5 two puffs BID proair with spacer q 4h prn. Continue O2 prn to maintain sats >90% Monitor respirator y function F/U with resp therapist and pulmonary as able. [id number] SON LEIJA NP [address] [address] 08/30/2020 08:12:16 09/02/2020 10:34:19 SARS-CoV-2 181094988 U07.1 encourage po intake O2 prn consider IVF if she becomes anorexic [id number] SON LEIJA NP [address] [address] 08/31/2020 11:03:06 09/02/2020 11:07:24 SARS-CoV-2 848658459 U07.1 08/16, 08/23 positive encourage po intake O2 prn consider IVF if she becomes anorexic [id number] SON LEIJA NP [address] [address] 09/01/2020 09:30:51 09/06/2020 10:25:57 SARS-CoV-2 167273484 U07.1 08/16, 08/23 positive encourage po intake O2 prn consider IVF if she becomes anorexic [id number] SON LEIJA NP [address] [address] 09/02/2020 12:59:16 09/06/2020 10:40:27 SARS-CoV-2 480610158 U07.1 08/16, 08/23 positive, 08/29 negative encourage po intake O2 prn consider IVF if she becomes anorexic [id number] Toma Alvarado MD [address] [address] 09/23/2020 06:10:55 09/27/2020 11:42:12 Chronic obstructive pulmonary disease 97920455 J41.0 Advair 250-50: one puff bidCombive nt Respimat 20-100: one puff tidalbuter ol HFA 1 puff q4h prn will monitor History of malignant neoplasm of ovary 914208104 Z85.43 s/p DYLLAN, SBO; has refused further treatment Hypothyroidism 04258737 E03.8 levothyrox ine 75 mcg dailywill monitor Mixed anxi ety and depressive disorder 218039789 F41.8 mirtazapin e 15 mg at [facility] monitor SARS-CoV-2 165632838 U07 .1 recoveredw ill continue to monitor [id number] SON LEIJA NP [address] [address] 11/15/2020 13:47:46 11/16/2020 14:55:19 Chronic obstructive pulmonary disease 80627011 J44.9 monitor for any sob, O2 if needed advair 250/50 daily combivent 20/100 tid flonase daily albuterol prn loratadine 10mg daily Healthcare associated bacterial pneumonia 725897598 J15.9 recovered History of malignant neoplasm of ovary 220815529 Z85.43 DYLLAN SBO no further treatment Hypothyroidism 18638622 E03.9 levothyrox ine 75 mcg daily will monitor Mediastinal emphysema 16 990079 J98.2 2019 pneumomedi astinum related to infection/ bronchosco py no interventi on needed if resp sx develop will repeat cxr/CT chest Mixed anxi ety and depressive disorder 980431137 F41.8 mirtazapin e 15 mg qd. monitor mood Follow with NEG as able. SARS-CoV-2 492769441 U07 .1 recovered 08/16, 08/23 positive, 08/29 negative encourage po intake O2 prn consider IVF if she becomes anorexic Severe protein-calorie malnutrition (Bell: less than 60 percent of standard weight) 720153749 E43 ensure TID and mirtazapin e 15 mg qd thiamine 100 mg daily B6 100 daily Continue to monitor weights Tuberculosis 17405974 A1 8.89 combivent tid, advair daily proair with spacer q 4h prn. Continue O2 prn to maintain sats >90% Monitor respirator y function F/U with resp therapist and pulmonary as able. 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 mirtazapin e 15 mg at [facility] monitor SARS-CoV-2 339192315 U07 .1 diagnosed 09/02 recovered will continue to monitor [id number] KEILA BRASHER WERO [address] [place] [phone] 5 03/01/2021 08:04:33 03/03/2021 13:38:48 Chronic obstructive pulmonary disease 74254673 J44.9 monitor for any sob, O2 if needed advair 250/50 bid combivent 20/100 tid flonase daily albuterol prn loratadine 10mg daily History of malignant neoplasm of ovary 836036403 Z85.43 DYLLAN SBO no further treatment Hypothyroidism 99693014 E03.9 levothyrox ine 75 mcg daily will monitor Mediastinal emphysema 16 203481 J98.2 2019 pneumomedi astinum related to infection/ bronchosco py no interventi on needed if resp sx develop will repeat cxr/CT chest Mixed anxi ety and depressive disorder 460668809 F41.8 mirtazapin e 15 mg qd. monitor mood Follow with NEG as able. Pain in right knee 30666 94029 76088 M25.561 lidoderm patch right kneediclof enac gel bidtylenol 650 mg q6hr prn Severe protein-calorie malnutrition (Bell: less than 60 percent of standard weight) 784531951 E43 ensure TID mirtazapi ne 15 mg qd thiamine 100 mg daily B6 100 daily Continue to monitor weights Tuberculosis 69476383 A1 8.89 combivent tid, advair 250/50 bid proair with spacer q 4h prn. Continue O2 prn to maintain sats >90% Monitor respirator y function F/U with resp therapist and pulmonary as able. [id number] MD KAREN Morales WERO [address] [place] [address] [place] [address] 04/21/2021 06:57:11 05/02/2021 14:03:31 Chronic obstructive pulmonary disease 54662449 J41.0 Advair 250-50: one puff bidCombive nt Respimat 20-100: one puff tidalbuter ol HFA 1 puff q4h prnwill monitor History of malignant neoplasm of ovary 534193046 Z85.43 s/p DYLLAN, SBOhas refused further treatment Hypothyroidism 77697789 E03.8 levothyrox ine 75 mcg dailywill monitor Mixed anxi ety and depressive disorder 036581868 F41.8 mirtazapin e 15 mg at [facility] monitor SARS-CoV-2 463810684 U07 .1 diagnosed 09/02 recovered will continue to monitor Gastroesop hageal reflux disease without esophagitis 112001715 K21.9 famotidine 20 mg at [facility] monitor Acute conjunctivitis 537 47917 H10.011 improvingc omplete course of polytrim solutionwi monitor [id number] SON LEIJA NP [facility] [address] [place] [phone] 06/14/2021 11:54:10 06/16/2021 10:06:14 Chronic obstructive pulmonary disease 65907818 J41.0 monitor for any sob, O2 if needed advair 250/50 bid combivent 20/100 tid flonase daily albuterol prn loratadine 10mg daily Hypothyroidism 36468975 E03.8 levothyrox ine 75 mcg daily will monitor Mixed anxi ety and depressive disorder 986397116 F41.8 mirtazapin e 15 mg qd. monitor mood Follow with NEG as able. Pain in right knee 23474 97477 64180 M25.561 lidoderm patch right kneediclof enac gel bidtylenol 650 mg q6hr prn Tuberculosis 31093783 A1 8.89 combivent tid, advair 250/50 bid proair with spacer q 4h prn. O2 prn to maintain sats >90% Monitor respirator y function F/U with resp therapist and pulmonary as able. Gastroesop hageal reflux disease without esophagitis 829852394 K21.9 pepcid 20 mg daily Vitamin deficiency 56466 002 E56.9 mvi dailythiam ine 100 mg dailyB6 daily [id number] MD KAREN Morales WERO [address] [place] [address] 08/23/2021 06:02:03 08/25/2021 11:44:21 Chronic obstructive pulmonary disease 78830426 J41.0 Advair 250-50: one puff bidCombive nt Respimat 20-100: one puff tidalbuter ol HFA 1 puff q4h prnwill monitor Gastroesop hageal reflux disease without esophagitis 934225202 K21.9 famotidine 20 mg at [facility] monitor Hypothyroidism 83909429 E03.8 levothyrox ine 75 mcg dailywill monitor History of malignant neoplasm of ovary 960875143 Z85.43 s/p DYLLAN, SBOhas refused further treatment Mixed anxi ety and depressive disorder 612905167 F41.8 mirtazapin e 15 mg at [facility] monitor Vitamin deficiency 07468 002 E56.8 pyridoxine 100 mg dailythiam ine 100 mg dailyMVI dailywill monitor Osteoarthritis 620099209 M17.11 APAP 650 mg q6h prndiclofe nac topical gel to right knee prnBengay cream to right knee q8h prnlidocai ne patch 4% to right knee dailywill monitor [id number] KEILA BRASHER [address] [place] [address] 10/19/2021 12:58:57 10/24/2021 11:46:50 Chronic obstructive pulmonary disease 71529480 J41.0 monitor for any sob, O2 if needed advair 250/50 bid combivent 20/100 tid flonase daily albuterol prn loratadine 10mg daily Hypothyroidism 75498714 E03.8 levothyrox ine 75 mcg daily will monitor Mixed anxi ety and depressive disorder 403747784 F41.8 mirtazapin e 15 mg qd. monitor mood Follow with NEG as able. Pain in right knee 18501 38294 08442 M25.561 lidoderm patch right kneediclof enac gel bidtylenol 650 mg q6hr prn Tuberculosis 07302597 A1 8.89 combivent tid, advair 250/50 bid proair with spacer q 4h prn. O2 prn to maintain sats >90% Monitor respirator y function F/U with resp therapist and pulmonary as able. Gastroesop hageal reflux disease without esophagitis 275329633 K21.9 pepcid 20 mg daily Vitamin deficiency 63726 002 E56.9 mvi dailythiam ine 100 mg dailyB6 daily [id number] SON GRIPPIN, [employer] [address] [address] 11/09/2021 09:05:30 11/15/2021 08:55:12 Chronic obstructive pulmonary disease 89883447 J41.0 monitor for any sob, O2 if needed advair 250/50 bid combivent 20/100 tid flonase daily albuterol prn loratadine 10mg daily Pain in right knee 55157 82845 55579 M25.561 lidoderm patch right kneediclof enac gel bidtylenol 650 mg q6hr prn [id number] SON LEIJA NP [address] [address] 11/10/2021 10:03:11 11/15/2021 10:48:07 SARS-CoV-2 361311365 U07.1 11/08 covid positive, asymptomat icPatient covid positiveco ntinue supportive caremonito r PO intake and need for supplement al R9bxesest need for adjuvent therapyto ED for acute decompensa tion [id number] SON LEIJA NP [address] [phone] 11/13/2021 12:31:35 11/15/2021 11:47:51 SARS-CoV-2 663963241 U07.1 11/08 covid positive, asymptomat ic-recover ed by datePatiazar t covid positive continue supportive care monitor PO intake and need for supplement al O2 monitor need for adjuvent therapy to ED for acute decompensa tion [id number] Toma Alvarado MD [address] [address] 12/22/2021 07:56:46 12/27/2021 16:02:07 Chronic obstructive pulmonary disease 96769102 J41.0 Advair 250-50: one puff bidCombive nt Respimat 20-100: one puff tidalbuter ol HFA 1 puff q4h prnwill monitor Gastroesop hageal reflux disease without esophagitis 429700812 K21.9 famotidine 20 mg at [facility] monitor Hypothyroidism 18025478 E03.8 levothyrox ine 75 mcg dailywill monitor Mixed anxi ety and depressive disorder 726459244 F41.8 mirtazapin e 15 mg at [facility] monitor SARS-CoV-2 450367147 U07 .1 tested positive 11/08/21asy mptomatic coursereco shelli will continue to monitor [id number] SON LEIJA NP [address] [phone] 01/19/2022 08:44:18 01/23/2022 11:01:49 Chronic obstructive pulmonary disease 74092738 J41.0 monitor for any sob, O2 if needed advair 250/50 bid combivent 20/100 tid flonase daily albuterol prn loratadine 10mg daily Hypothyroidism 83036061 E03.8 levothyrox ine 75 mcg daily will monitor Mixed anxi ety and depressive disorder 261968646 F41.8 mirtazapin e 15 mg qd. monitor mood Follow with NEG as able. Pain in right knee 12614 86672 81091 M25.561 lidoderm patch right kneediclof enac gel bidtylenol 650 mg q6hr prn Tuberculosis 19021785 A1 8.89 combivent tid, advair 250/50 bid proair with spacer q 4h prn. O2 prn to maintain sats >90% Monitor respirator y function F/U with resp therapist and pulmonary as able. Gastroesop hageal reflux disease without esophagitis 200851441 K21.9 pepcid 20 mg daily Vitamin deficiency 10746 002 E56.9 mvi dailythiam ine 100 mg dailyB6 daily [id number] KEILA BRASHER [address] [phone] 02/16/2022 11:50:24 02/20/2022 12:03:24 Chronic obstructive pulmonary disease 35946895 J41.0 monitor for any sob, O2 if needed advair 250/50 bid combivent 20/100 tid flonase daily albuterol prn loratadine 10mg daily Hypothyroidism 00633244 E03.8 levothyrox ine 75 mcg daily will monitor Mixed anxi ety and depressive disorder 782174109 F41.8 mirtazapin e 15 mg qd. monitor mood Follow with NEG as able. Pain in right knee 56756 34756 61678 M25.561 lidoderm patch right kneediclof enac gel bidtylenol 650 mg q6hr prn Tuberculosis 89429761 A1 8.89 combivent tid, advair 250/50 bid proair with spacer q 4h prn. O2 prn to maintain sats >90% Monitor respirator y function F/U with resp therapist and pulmonary as able. Gastroesop hageal reflux disease without esophagitis 777783016 K21.9 pepcid 20 mg daily Vitamin deficiency 10554 002 E56.9 mvi dailythiam ine 100 mg dailyB6 daily [id number] CHASE Eduardo [address] [address] 03/08/2022 11:23:24 03/13/2022 16:32:13 Cellulitis of finger of right hand 4637626176 7473609 L03.011 bacitracin cream apply qd till healedmoni tor. [id number] Toma Alvarado MD [address] [phone] 03/30/2022 08:39:42 04/03/2022 11:43:48 Chronic obstructive pulmonary disease 78457345 J41.0 Advair 250-50: one puff bidCombive nt Respimat 20-100: one puff tidalbuter ol HFA 1 puff q4h prnwill monitor Gastroesop hageal reflux disease without esophagitis 926414728 K21.9 famotidine 20 mg at [facility] monitor Hypothyroidism 00689330 E03.8 levothyrox ine 75 mcg dailywill monitor Mixed anxi ety and depressive disorder 023488679 F41.8 mirtazapin e 15 mg at [facility] monitor Vitamin deficiency 03150 002 E56.9 pyridoxine 100 mg dailythiam ine 100 mg dailyMVI dailywill monitor Osteoarthritis 835123027 M17.11 APAP 650 mg q6h prndiclofe nac topical gel to right knee bid prnBengay cream to right knee q8h prnlidocai ne patch 4% to right knee dailywill monitor [id number] SON LEIJA NP [address] [address] 05/23/2022 13:08:08 05/29/2022 16:22:19 Chronic obstructive pulmonary disease 71253633 J41.0 Advair 250-50: one puff bidCombive nt Respimat 20-100: one puff tidalbuter ol HFA 1 puff q4h prnwill monitor Gastroesop hageal reflux disease without esophagitis 071987551 K21.9 famotidine 20 mg at [facility] monitor Hypothyroidism 98663127 E03.8 levothyrox ine 75 mcg dailywill monitor Mixed anxi ety and depressive disorder 129552893 F41.8 mirtazapin e 15 mg at [facility] monitor Vitamin deficiency 79353 002 E56.9 pyridoxine 100 mg dailythiam ine 100 mg dailyMVI dailywill monitor Osteoarthritis 068275807 M17.11 APAP 650 mg q6h prndiclofe nac topical gel to right knee bid prnBengay cream to right knee q8h prnlidocai ne patch 4% to right knee dailywill monitor Tuberculosis 02167142 A1 8.89 combivent tid, advair 250/50 bid proair with spacer q 4h prn. O2 prn to maintain sats >90% Monitor respirator y function F/U with resp therapist and pulmonary as able. [id number] MD KAREN Morales [address] [place] [phone] 07/13/2022 07:10:41 07/17/2022 14:08:46 Chronic obstructive pulmonary disease 97865920 J41.0 Advair 250-50: one puff bidCombive nt Respimat 20-100: one puff tidalbuter ol HFA 1 puff q4h prnwill monitor Hypothyroidism 46608061 E03.8 levothyrox ine 75 mcg dailywill monitor Mixed anxi ety and depressive disorder 653681842 F41.8 mirtazapin e 15 mg at [facility] monitor Gastroesop hageal reflux disease without esophagitis 924761760 K21.9 famotidine 20 mg at [facility] monitor History of malignant neoplasm of ovary 742630169 Z85.43 s/p DYLLAN, SBOhas refused further treatment [id number] KEILA BRASHER [address] [place] [address] 09/05/2022 17:06:29 09/11/2022 14:11:08 Chronic obstructive pulmonary disease 81664546 J41.0 Advair 250-50: one puff bidCombive nt Respimat 20-100: one puff tidalbuter ol HFA 1 puff q4h prnwill monitor Hypothyroidism 17038865 E03.8 levothyrox ine 75 mcg dailywill monitor Mixed anxi ety and depressive disorder 657795786 F41.8 mirtazapin e 15 mg at [facility] monitor Gastroesop hageal reflux disease without esophagitis 915732260 K21.9 famotidine 20 mg at [facility] monitor Tuberculosis 14855891 A1 8.89 combivent tid, advair 250/50 bid proair with spacer q 4h prn. O2 prn to maintain sats >90% Monitor respirator y function F/U with resp therapist and pulmonary as able. MD KAREN Morales [address] [place] [phone] 12/07/2022 10:38:11 12/11/2022 08:03:41 Chronic obstructive pulmonary disease 78165340 J41.0 Advair 250-50: one puff bidCombive nt Respimat 20-100: one puff tidalbuter ol HFA 1 puff q4h prnwill monitor Mixed anxi ety and depressive disorder 724679516 F41.8 mirtazapin e 15 mg at [facility] monitor Gastroesop hageal reflux disease without esophagitis 587293635 K21.9 famotidine 20 mg at [facility] monitor Hypothyroidism 65958144 E03.8 levothyrox ine 75 mcg dailywill monitor Chronic pain 29175689 G8 9.29 diclofenac gel to right knee bid prnlidocai ne patch to right knee dailyAPAP 650 mg q6h prnwill monitor [id number] SON LEIJA NP [address] [address] 01/28/2023 14:21:07 01/31/2023 15:22:09 Chronic obstructive pulmonary disease 94941949 J41.0 Advair 250-50: one puff bidCombive nt Respimat 20-100: one puff tidalbuter ol HFA 1 puff q4h prnwill monitor Mixed anxi ety and depressive disorder 824967202 F41.8 mirtazapin e 15 mg at [facility] monitor Gastroesop hageal reflux disease without esophagitis 790131048 K21.9 famotidine 20 mg at [facility] monitor Hypothyroidism 47890752 E03.8 levothyrox ine 75 mcg dailywill monitor Chronic pain 70577170 G8 9.29 diclofenac gel to right knee bid prnlidocai ne patch to right knee dailyAPAP 650 mg q6h prnwill monitor [id number] SON LEIJA NP [address] [address] 02/15/2023 13:27:41 02/20/2023 16:52:34 Chronic obstructive pulmonary disease 80182022 J41.0 Advair 250-50: one puff bidCombive nt Respimat 20-100: one puff tidalbuter ol HFA 1 puff q4h prnwill monitor Mixed anxi ety and depressive disorder 753532419 F41.8 mirtazapin e 15 mg at [facility] monitor Gastroesop hageal reflux disease without esophagitis 320264121 K21.9 famotidine 20 mg at [facility] monitor Hypothyroidism 46166516 E03.8 levothyrox ine 75 mcg dailywill monitor Chronic pain 31915726 G8 9.29 diclofenac gel to right knee bid prnlidocai ne patch to right knee dailyAPAP 650 mg q6h prnwill monitor Vitamin deficiency 05240 002 E56.9 pyridoxine 100 mg dailythiam ine 100 mg dailyMVI dailywill monitor [id number] Kianna Alvarez MD [address] [phone] 03/28/2023 13:20:05 04/11/2023 13:24:13 Chronic obstructive pulmonary disease 20784335 J41.0 No current sxs.Contin ue Advair 250/50 BID, Combivent Respimat 1 puff TID and albuterol HFA 1 puff q 4 hrs prnMonitor resp. status. Mixed anxi ety and depressive disorder 368010225 F41.8 Mood good today.Cont inue mirtazapin e 15 mg at hsMonitor moodPsych follows, no GDR recommende d. Gastroesop hageal reflux disease without esophagitis 308046148 K21.9 Under good controlCon tinue famotidine 20 mg at hsMonitor for sxs Hypothyroidism 57961767 E03.8 Last TSH 02/2021 was WNLContinu e levothyrox ine 75 mcg dailyMonit or TSH yearly, will order with next labs. Chronic pain 16580466 G8 9.29 She says pain is adequately controlled .Continue diclofenac gel to right knee BID prn, lidocaine patch to right knee daily and APAP 650 mg q 6 hrs prnMonitor sxs. Vitamin deficiency 68043 002 E56.8 Continue pyridoxine 100 mg daily, thiamine 100 mg daily, and MVI dailyNo monitoring needed. [id number] KEILA BRASHER [address] [address] 04/05/2023 13:30:53 04/11/2023 13:56:07 Chronic obstructive pulmonary disease 16566045 J41.0 Advair 250-50: one puff bidCombive nt Respimat 20-100: one puff tidalbuter ol HFA 1 puff q4h prnwill monitor Mixed anxi ety and depressive disorder 382815073 F41.8 mirtazapin e 15 mg at [facility] monitor [id number] SON LEIJA NP [address] [address] 5 05/17/2023 10:17:44 05/21/2023 16:07:38 Chronic obstructive pulmonary disease 50773244 J41.0 Advair 250-50: one puff bidCombive nt Respimat 20-100: one puff tidalbuter ol HFA 1 puff q4h prnwill monitor Mixed anxi ety and depressive disorder 305023549 F41.8 mirtazapin e 15 mg at [facility] monitor Gastroesop hageal reflux disease without esophagitis 776722879 K21.9 famotidine 20 mg at [facility] monitor Hypothyroidism 46869205 E03.8 levothyrox ine 75 mcg dailywill monitor Chronic pain 77956288 G8 9.29 diclofenac gel to right knee bid prnlidocai ne patch to right knee dailyAPAP 650 mg q6h prnwill monitor Vitamin deficiency 50927 002 E56.9 pyridoxine 100 mg dailythiam ine 100 mg dailyMVI dailywill monitor [id number] SON LEIJA NP KAREN WERO [address] [place] [address] [place] [address] 07/08/2023 13:04:17 07/09/2023 20:04:53 Pain of left knee region 1531769920 29611 M25.562 tylenol prnxray of left kneePT OT eval and treat prn [id number] Kianna Alvarez MD [address] [address] 08/16/2023 13:59:50 08/20/2023 11:12:11 Pain of left knee region 3127203270 81440 M25.562 Says it's much better.Con tinue diclofenac gel 4 gms BID and APAP 650 mg q 6 hrs prn.Monito r sxs. Chronic ob structive pulmonary disease 06386199 J41.0 Continues at mild baseline.C ontinue Advair 250/50 BID, Combivent Respimat 1 puff TID and albuterol HFA 1 puff q 4 hrs prnMonitor resp. status. Mixed anxi ety and depressive disorder 531686445 F41.8 Mood remains good at most times.Cont inue mirtazapin e 15 mg qhsMonitor moodPsych continues to follow intermitte ntly, no GDR recommende d. Gastroesop hageal reflux disease without esophagitis 817262525 K21.9 No current sxs.Contin ue famotidine 20 mg qhsMonitor for sxs Hypothyroidism 62891740 E03.8 Last TSH was in ont inue levothyrox ine 75 mcg dailyMonit or TSH yearly, will order with next labs. Chronic pain 07179633 G8 9.29 As above.Also gets lidocaine patch to right knee daily.Elsy tor [id number] SON LEIJA NP [facility] [address] [place] [address] 10/09/2023 13:25:53 10/22/2023 10:00:48 Chronic obstructive pulmonary disease 69042115 J41.0 Advair 250-50: one puff bidCombive nt Respimat 20-100: one puff tidalbuter ol HFA 1 puff q4h prnwill monitor Mixed anxi ety and depressive disorder 561233823 F41.8 mirtazapin e 15 mg at [facility] monitor Gastroesop hageal reflux disease without esophagitis 785174828 K21.9 famotidine 20 mg at [facility] monitor Hypothyroidism 58240531 E03.8 levothyrox ine 75 mcg dailywill monitor Chronic pain 03521768 G8 9.29 diclofenac gel to right knee bid prnlidocai ne patch to right knee dailyAPAP 650 mg q6h prnwill monitor Vitamin deficiency 30328 002 E56.9 pyridoxine 100 mg dailythiam ine 100 mg dailyMVI dailywill monitor [id number] CHASE CHE [address] [address] 10/23/2023 11:46:55 10/30/2023 12:50:00 Contact dermatitis 00139020 L25.9 see hpihydroco rtisone 1% bid for 5 days and re evalPatien t encouraged to avoid scratching or touching affected areanursin g to offer prn tylenol for discomfort . [id number] Kianna Alvarez MD [address] [address] 12/10/2023 16:27:11 01/13/2024 15:10:49 Pain of left knee region 6198096387 96290 M25.562 Continues to do well with diclofenac gel 4 gms BID and APAP 650 mg q 6 hrs prn.Monito r sxs. Chronic ob structive pulmonary disease 87544341 J43.8 No recent exacerbati ons.Contin ue Advair 250/50 BID, Combivent Respimat 1 puff TID and albuterol HFA 1 puff q 4 hrs prnMonitor resp. status. Mixed anxi ety and depressive disorder 404642023 F41.8 Mood is stable, enjoys activities .Continue mirtazapin e 15 mg qhsMonitor moodPsych follows, last seen on 12/15 with no rec for med changes. Gastroesop hageal reflux disease without esophagitis 161554872 K21.9 No current sxs.Contin ue famotidine 20 mg qhsMonitor for sxs Hypothyroidism 04582828 E03.8 Last TSH in 08/2023 was sl. low at 0.17, no FT4 checked and no recheck done.Mandi nue levothyrox ine 75 mcg qd for nowRecheck TSH with FT4. Chronic pain 66968568 G8 9.29 As above.Also gets lidocaine patch to right knee daily.Elsy resendez [id number] CHASE CHE [address] [address] 01/30/2024 11:16:15 02/04/2024 12:17:43 Chronic obstructive pulmonary disease 37457915 J43.8 stableCont inue Advair 250/50 BID,contin ue Combivent Respimat 1 puff TIDcontinu e albuterol HFA 1 puff q 4 hrs prnMonitor resp. status. Mixed anxi ety and depressive disorder 584800674 F41.8 Continue mirtazapin e 15 mg qhsMonitor mood Gastroesop hageal reflux disease without esophagitis 794559092 K21.9 Continue famotidine 20 mg qhsMonitor for sxs Hypothyroidism 65364645 E03.8 Continue levothyrox ine 75 mcg qdmonitor labs prn Chronic pain 36043910 G8 9.29 As above.Also gets lidocaine patch to right knee daily.Elsy resendez [id number] CHASE CHE [address] [address] 03/12/2024 09:49:24 03/25/2024 14:50:38 Chronic obstructive pulmonary disease 57391818 J43.8 stableCont inue Advair 250/50 BID,contin ue Combivent Respimat 1 puff TIDcontinu e albuterol HFA 1 puff q 4 hrs prnMonitor resp. status. Mixed anxi ety and depressive disorder 539591172 F41.8 Continue mirtazapin e 15 mg qhsMonitor mood Gastroesop hageal reflux disease without esophagitis 945467697 K21.9 Continue famotidine 20 mg qhsMonitor for sxs Hypothyroidism 82448011 E03.8 Continue levothyrox ine 75 mcg qdmonitor labs prn Chronic pain 85461236 G8 9.29 As above.Also gets lidocaine patch to right knee daily.Elsy tor Vitamin deficiency 94686 002 E56.9 continue pyridoxine 100 mg daily ,thiamine 100 mg daily ,MVI daily Pain of knee region 1003 574989 M25.569 lidoderm patch right kneediclof enac gel bidtylenol 650 mg q6hr prn [id number] MD KAREN Pope [address] [place] [address] [place] [address] 5 04/17/2024 21:47:21 05/05/2024 07:56:21 Chronic obstructive pulmonary disease 06772576 J43.8 No recent exacerbati ons.Contin ue Advair 250/50 BID, Combivent Respimat 1 puff TID and albuterol HFA 1 puff q 4 hrs prnMonitor resp. status. Mixed anxi ety and depressive disorder 106610344 F41.8 Mood good tonight.Co ntinue mirtazapin e 15 mg qhsMonitor moodPsych follows, last seen on 03/23/24 with no rec for med changes. Gastroesop hageal reflux disease without esophagitis 887310868 K21.9 No current sxs.Contin ue famotidine 20 mg qhsMonitor for GI sxs Pain of le ft knee region 8141989883 35214 M25.562 Continues to do well with diclofenac gel 4 gms BID and APAP 650 mg q 6 hrs prn.Also uses lidocaine patch on right knee.Monit or sxs. Hypothyroidism 99260944 E03.8 Last TSH remains sl. low at 0.12, but with normal FT4.Contin ue levothyrox ine 75 mcg qd for nowRecheck TSH with FT4 in 3 months. Chronic pain [id number] G8 9.29 As above.Elsy tor sxs [id number] [facility] [address] [place] [address] [place] [address] 05/14/2024 13:40:54 05/19/2024 13:06:16 Psoriasis [id number] L40.9 Pruritic half dollar size, scaly red patch noted at base of hairline/ nap of neckwill add triamcinol one cream BID for 14 daysmonito r for resolution . [id number] [facility] [address] [place] [address] [place] [address] 05/19/2024 10:01:52 05/20/2024 14:50:20 Psoriasis 5016585 L40.9 Pruritic half dollar size, scaly red patch noted at base of hairline/ nap of neck- improvingc ontinue triamcinol one cream BID for 14 daysmonito r for resolution . [id number] [facility] [address] [place] [address] [place] [address] 06/03/2024 13:59:00 06/05/2024 10:24:55 Chronic obstructive pulmonary disease [id number] J43.8 stableCont inue Advair 250/50 BID,contin ue Combivent Respimat 1 puff TIDcontinu e albuterol HFA 1 puff q 4 hrs prnMonitor resp. status. Mixed anxi ety and depressive disorder 135545282 F41.8 mood has been stableCont inue mirtazapin e 15 mg qhspsych prn Gastroesop hageal reflux disease without esophagitis 018618956 K21.9 Continue famotidine 20 mg qhsMonitor for sxs Hypothyroidism 55268694 E03.8 Continue levothyrox ine 75 mcg qdmonitor labs prn Chronic pain 08054150 G8 9.29 As above.Also gets lidocaine patch to right knee daily.Elsy tor Vitamin deficiency 13398 002 E56.9 continue pyridoxine 100 mg daily ,thiamine 100 mg daily ,MVI daily Pain of knee region 1003 491550 M25.569 lidoderm patch right kneediclof enac gel bidtylenol 650 mg q6hr prn Psoriasis 5068522 L40.9 resolved [id number] [facility] [address] [place] [address] [place] [address] 07/23/2024 10:20:41 07/28/2024 15:44:44 Chronic obstructive pulmonary disease 19383567 J43.8 stableCont inue Advair 250/50 BID,contin ue Combivent Respimat 1 puff TIDcontinu e albuterol HFA 1 puff q 4 hrs prnMonitor resp. status. 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 mood has been stableCont inue mirtazapin e 15 mg qhspsych prn Gastroesop hageal reflux disease without esophagitis 880158191 K21.9 Continue famotidine 20 mg qhsMonitor for sxs Hypothyroidism 14459312 E03.8 Continue levothyrox ine 75 mcg qdmonitor labs prn Chronic pain 36340574 G8 9.29 As above.Also gets lidocaine patch to right knee daily.Elsy tor Vitamin deficiency 19555 002 E56.9 continue pyridoxine 100 mg daily ,thiamine 100 mg daily ,MVI daily Pain of knee region 1003 346044 M25.569 stable.lid oderm patch right kneediclof enac gel bidtylenol 650 mg q6hr prn Psoriasis 6069903 L40.9 resolved [id number] [facility] [address] [address] 09/14/2024 12:31:36 09/22/2024 14:14:59 Chronic obstructive pulmonary disease 96090596 J43.8 stableCont inue Advair 250/50 BID,contin ue Combivent Respimat 1 puff TIDcontinu e albuterol HFA 1 puff q 4 hrs prnMonitor resp. status. Mixed anxi ety and depressive disorder 886933504 F41.8 mood has been stableCont inue mirtazapin e 15 mg qhspsych prn Gastroesop hageal reflux disease without esophagitis 497424344 K21.9 Continue famotidine 20 mg qhsMonitor for sxs Hypothyroidism 27238739 E03.8 Continue levothyrox ine 75 mcg qdmonitor labs prn Chronic pain 97819683 G8 9.29 As above.Also gets lidocaine patch to right knee daily.Elsy tor Vitamin deficiency 68962 002 E56.9 continue pyridoxine 100 mg daily ,thiamine 100 mg daily ,MVI daily Pain of knee region 1003 824920 M25.569 stable.lid oderm patch right kneediclof enac gel bidtylenol 650 mg q6hr prn [id number] [facility] [address] [place] [address] 10/12/2024 10:37:58 10/13/2024 13:55:23 COVID-19 [id number] U07.1 we discussed antiviral, she is not interested ,s she reports that she is feeling better todaywill add prn robitussin and oxygen as wellcontin ue supportive therapy( tylenol, oxygen, robitussin ordered.)i ncrease fluids encouraged discussed with nursing, update provider with changes. [id number] [facility] [address] [place] [address] 01/10/2025 10:55:53 01/14/2025 16:09:23 Chronic obstructive pulmonary disease 41903509 J43.8 stableCont inue Advair 250/50 BID,contin ue Combivent Respimat 1 puff TIDcontinu e albuterol HFA 1 puff q 4 hrs prnMonitor resp. status. Mixed anxi ety and depressive disorder 774113516 F41.8 stableCont inue mirtazapin e 15 mg qhspsych prn Gastroesop hageal reflux disease without esophagitis 128321307 K21.9 stable/Con tinue famotidine 20 mg qhsMonitor for sxs Hypothyroidism 00512043 E03.8 Continue levothyrox ine 75 mcg qdmonitor labs prn Chronic pain 66064528 G8 9.29 stableAlso gets lidocaine patch to right knee daily.Elsy tor Vitamin deficiency 36421 002 E56.9 continue pyridoxine 100 mg daily ,thiamine 100 mg daily ,MVI daily Pain of knee region 1003 228763 M25.569 stable.lid oderm patch right kneediclof enac gel bidtylenol 650 mg q6hr prn Health Concerns Section Related Observation LastModified by Organization Detai ls LastModified Time None Recorded Concern Status LastModified by Organization Details LastModified Time None Recorded Advance Directives Directive Y: DNI otherwise full code Payers Encounter Date Sequence Insurance Name Policy Number Policy Martino Covered Member ID Martino Member ID Guarantor Name 06/03/2024 2 [place] [facility] Brittanie Call [id number] Brittanie Call 06/03/2024 1 [place] [employer] Brittanie R Guiel [id number] Brittanie Guiel 07/23/2024 2 [place] Brittanie R Guiel [id number] Brittanie Guiel 07/23/2024 1 [place] [employer] Brittanie R Guiel [id number] Brittanie Guiel 09/14/2024 2 [place] Brittanie R Guiel [id number] Brittanie Guiel 09/14/2024 1 [place] [employer] Brittanie R Guiel [id number] Brittanie Guiel 10/12/2024 2 [place] Brittanie R Guiel [id number] Brittanie Guiel 10/12/2024 1 [place] [employer] Brittanie R Guiel [id number] Brittanie Guiel 01/10/2025 2 [place] Brittanie R Guiel [id number] Rbittanie Guiel 01/10/2025 1 [place] [employer] Brittanie R Guiel [id number] Brittanie Guiel Notes Date Note Type Note Provider Name and Address Organization Details Recorded Time 06/03/2024 text/html This is an 83 yo [...] in recreational activities daily. [facility] [address] [facility], [address], [place], [address], [facility] 06/03/2024 17:52:32 07/23/2024 text/html This is an 83 yo woman, LTC resident with a past medical history that includes Tb, hx of ovarian CA-s/p DYLLAN & BSO, COPD, and depression/anxiety . Seen for routine rounding. She us stable at her baseline in NAD. There are no acute concerns. [facility] [address] [facility], [address], [place], [address], [facility] 07/23/2024 13:36:45 09/14/2024 text/html This is an 83 yo woman, LTC resident with a past medical history that includes Tb, hx of ovarian CA-s/p DYLLAN & BSO, COPD, and depression/anxiety . Seen for routine rounding. She is stable at her baseline in NAD. There are no acute concerns. She is eating and drinking ok, no concerns with elimination. [facility] [address] [facility], [address], [place], [address], [facility] 09/18/2024 18:11:40 10/12/2024 text/html This is an [...] covid. reportable sx reviewed. [facility] [address] [facility], [address], [place], [address], [facility] 10/12/2024 15:53:56 01/10/2025 text/html This is an 84 yo woman, LTC resident with a past medical history that includes Tb, hx of ovarian CA-s/p DYLLAN & BSO, COPD, and depression/anxiety . Seen for routine rounding. She is stable at her baseline in NAD. There are no acute concerns. no changes in appetite, no concerns with elimination. when she has minor aches and discomfort it is controlled with tylenol. Per nurse there is no acute concerns. [facility] [address] [facility], [address], [place], [address], [facility] 01/11/2025 10:18:20 OBGyn Episode No OBEpisode recorded.
--- OUTSIDE RECORDS SUMMARY | 2025-01-18 06:04 | XMS_ITS | Encounter Summary ---
Author Organization [facility] Address [address] [place] [address] Care Team Providers Care Medical Educator Name Role Phone Marco Antonio Silva MD Primary Care Provider Unava ilable Alejandra Mo MD Primary Care Provider [phone] Encounter Details Date Type Department Care Team Description 07/19/2019 Hospital Medical Records [address] [place] [address] Ivan Lizararga MD [address] [place] [id number] Social History Tobacco Use Types Packs/Day Years Used Date Smoking Tobacco: Former Cigarettes 50 Smokeless Tobacco: Never Alcohol Use Standard Drinks/Week Comments Never 0 (1 standard drink = 0.6 oz pur e alcohol) Sex Assigned at Date Recorded Not on file documented as of this encounter Plan of Treatment Not on file documented as of this encounter Visit Diagnoses Not on filedocumented in this encounter Care Teams Medical Educator Relationship Specialty Start Date End Date Marco Antonio Silva MD PCP - General Internal Medicine 07/17/19 12/20/20 Alejandra Mo MD PCP - General Internal Medicine 12/21/20 documented as of this encounter
--- OUTSIDE RECORDS SUMMARY | 2025-01-18 06:04 | XMS_ITS | Encounter Summary ---
Author Organization [facility] Address [address] [place] [address] Care Team Providers Care Telegraph Office Telephone Clerk Name Role Phone Alejandra Mo MD Primary Care Provider [phone] Encounter Details Date Type Department Care Team Description 02/06/2021 Release of Information Medical Records [address] [place] [address] Abstract, Provider Social History Tobacco Use Types Packs/Day Years [...] on filedocumented in this encounter Care Teams Telegraph Office Telephone Clerk Relationship Specialty Start Date End Date Alejandra Mo MD PCP - General Internal Medicine 12/21/20 documented as of this encounter
--- OUTSIDE RECORDS SUMMARY | 2025-01-18 06:04 | XMS_ITS | Clinical Summary ---
Author Organization [facility] Address [address] [place] [address] Care Team Providers Care Hospital Manager Name Role Phone Alejandra Mo MD Primary Care Provider [phone] Surgical History Surgery Date Site/Laterality Comments ANKLE SURGERY PROCEDURE: HISTORICAL ANKLE SURGERY OTHER SURGICAL HISTORY PROCEDURE: [place] TOTAL ABDOMINAL HYSTERECT W/WO RMVL TUBE OVARY [...] Vaccines (1 of 2) 1991 RSV Immunization Adult Patie nts (1 - 1-dose 75+ series) 2016 COVID-19 [...] Documents on File Type Date Recorded Patient Assessment Consultant Expl anation Health Care Decision (hx) 08/21/2019 AD MYERS DIRECTIVE Health Care Decision (hx) 07/28/2019 AD MYERS DIRECTIVE Care Teams Hospital Manager Relationship Specialty Start Date End Date Alejandra Mo MD PCP - General Internal Medicine 12/21/20
[2025-01-18 06:48] LABS: Basophils Percent Auto 0.5 % (0-2); Eosinophils Absolute Auto 0.1 X10*3/uL (0.0-0.4); Eosinophils Percent Auto 2.2 % (0-4); Hematocrit 43.2 % (37.0-47.0); Hemoglobin 14.3 g/dl (12.0-16.0); Imm Gran Abs Auto 0.02 X10*3/uL (0.00-0.03); Imm Gran Pct Auto 0.3 % (0.0-0.4); Lymphocytes Absolute Auto 2.4 X10*3/uL (1.2-4.9); Lymphocytes Percent Auto 40.7 % (20-40); Mean Corpuscular HGB Conc 33.1 g/dl (31.0-35.0); Mean Corpuscular Volume 93.5 fL (80.0-98.0); Mean Platelet Volume 9.8 fL (9.4-12.3); Monocytes Absolute Auto 0.5 X10*3/uL (0.1-1.2); Monocytes Percent Auto 7.9 % (2-11); Neutrophils Absolute Auto 2.8 x10*3/uL (2.0-8.3); Neutrophils Percent Auto 48.4 % (45-73); Platelet Count 205 X10*3/uL (160-400); Red Blood Count 4.62 X10*6/uL (4.20-5.50); Red Cell Distribution Width 14.1 % (11.0-16.0); White Blood Count 5.9 X10*3/uL (4.8-10.8)
[2025-01-18 06:51] LABS: Anion Gap 11 (12-20); Blood Urea Nitrogen 18 mg/dL (9-16); Carbon Dioxide 24 mmol/L (22-29); Chloride 109 mmol/L (96-108); Estimated Glomerular Filt Rate > 60; Glucose Random 77 mg/dL (60-115); Potassium 3.9 mmol/L (3.3-5.1); Sodium 140 mmol/L (135-145)
== END 2025-01-18 05:51 | disposition home or self-care (01) ==
LOC: HO.MMNH3L 05:50
PROVIDERS: Visit Provider Family Medicine
DX: J96.01 Acute respiratory failure with hypoxia (principal)
CPT/HCPCS: 36415; 80048; 85025

== ENCOUNTER 2025-02-22 06:15 | Outpatient (REF) | payer MEDICARE, SELFPAY ==
[2025-02-22 06:11] LABS: MANUAL DIFF FLAG NO
--- OUTSIDE RECORDS SUMMARY | 2025-02-22 06:21 | XMS_ITS | Data Portability ---
Author Organization [facility], Main Office Address [address] [facility], [address] [place] [address] Care Team Providers Care Tool Carrier Name Role Phone KAREN CONTEH 3RD FLOOR OTHER Assessment Encounter Date Assessment Date Assessment LastModified [...] Recorded Time Chronic obstructiv e pulmonary disease 45995726 Active 2019 Kianna Alvarez MD [address] [facility], [facility] [address], [place], [address] , [facility] 0 22:40:16 Hypothyroi dism 05777641 Active 2019 Toma Alvarado MD [address] [facility], [address], [place], [address] , [facility] [employer] 0 09:30:52 SARS-CoV-2 Active 2019 SON LEIJA NP [address] [facility], [address], [place], [address] , [facility] [employer] 0 11:35:17 Pain in right knee Active 2020 SON LEIJA NP [address] [facility], [address], [place], [address] , [facility] 1 13:53:06 Gastroesop hageal reflux disease without esophagiti s 406248510 Active 2020 SON LEIJA NP [address] [facility], [address], [place], [address] , [facility] 1 12:16:37 Vitamin deficiency 10414401 Active 2020 SON LEIJA NP [address] [facility], [address], [place], [address] , [facility] 1 12:17:06 Pain of left knee region [id number] 09 Active 2022 SON LEIJA NP [address] [facility], [address], [place], [address] , [facility] 3 13:05:00 Chronic pain 70014076 Active 2023 Kianna Alvarez MD [address] [facility], [address], [place], [address] , [facility] 4 11:01:01 Tuberculos is 96224123 Active 2018 Hina gonzalez, [facility] [employer] [facility] 9 10:15:54 Healthcare associated bacterial pneumonia 814152311 Active 2018 Hina gonzalez, [facility] [employer] [facility] 9 10:16:18 Diagnostic pneumomedi astinum Active 2018 Hina gonzalez, [facility] [employer] [facility] 9 10:16:34 Severe protein-ca yobani malnutriti on (Bell: less than 60 percent of standard weight) 737184413 Active 2018 Hina gonzalez, [facility] [employer] [facility] 9 10:17:04 Mediastina l emphysema 21064020 Active 2018 Hina gonzalez, [facility] [employer] [facility] 9 10:17:42 History of malignant neoplasm of ovary 599901632 Active 2018 Hina gonzalez, [facility] 9 10:18:05 Mixed anxiety and depressive disorder 064138839 Active 2018 Nichelle gonzalez, [address] [facility] [employer] 9 10:56:15 Problem Notes None recorded. Medical [...] 120 mm[Hg] 75 mm[Hg] THOMAS CHEP [address] [facility], [address], [place], [address], [facility] 4 14:03:38 Date Recorded Body height Heart rate Respiratory rate Body temperature Oxygen saturation Oxygen saturation in Arterial blood by Pulse oximetry Systolic blood pressure Diastolic blood pressure Provider Name and Address Organization Details Last Updated DateTime 4 149.86 cm 72 /min 18 /min 97.4 [degF] 96 % 96 % 134 mm[Hg] 76 mm[Hg] [facility] [address] [facility], [address], [place], [address], [facility] 4 13:34:43 Date Recorded Body height Heart rate Respiratory rate Body temperature Oxygen saturation Oxygen saturation in Arterial blood by Pulse oximetry Systolic blood pressure Diastolic blood pressure Provider Name and Address Organization Details Last Updated DateTime 4 149.86 cm 75 /min 18 /min 98 [degF] 98 % 98 % 131 mm[Hg] 69 mm[Hg] [facility] [address] [place] , [address], [place], [address], [facility] 4 18:09:49 Date Recorded Body height Heart rate Respiratory rate Body temperature Oxygen saturation Oxygen saturation in Arterial blood by Pulse oximetry Systolic blood pressure Diastolic blood pressure Provider Name and Address Organization Details Last Updated DateTime 4 149.86 cm 68 /min 18 /min 97.1 [degF] 96 % 96 % 134 mm[Hg] 70 mm[Hg] [facility] [address] [facility], [address], [place], [address], [facility] 4 15:34:38 Date Recorded Body height Heart rate Respiratory rate Body temperature Oxygen saturation Oxygen saturation in Arterial blood by Pulse oximetry Systolic blood pressure Diastolic blood pressure Provider Name and Address Organization Details Last Updated DateTime 5 149.86 cm 78 /min 18 /min 97.7 [degF] 94 % 94 % 118 mm[Hg] 67 mm[Hg] [facility] [address] [facility], [address], [place], [address], [facility] 5 10:17:43 Social History Question Answer Notes LastModified by Organizat ion Details LastModified Time Tobacco Smoking Status Former Smoker smoked 1.5 ppd, quit many yrs ago Kianna Alvarez MD [address] [facility], [address], [place], [address], [facility] 08/16/2023 17:37:37 Do You Have An Advance Directive? Yes DNI Otherwise Full Code [id number] Information not available 08/09/2020 How Much Tobacco Do You Chew? None [id number] Information not available 08/09/2020 What Is Your Code Status? DNI Information not available 03/28/2023 Where Do You Live? [facility] Information not available 03/28/2023 Legal Guardian? No Informati on not available 03/28/2023 Do You Have A Medical Power Of Senior Art Director? Yes Not Invoked Information not available 03/28/2023 What Was The Date Of Your Most Recent Tobacco Screening? 08/16/2023 Information not available 08/16/2023 Do You Have An Out Of Hospital DNR? No Information not available 03/28/2023 What Is Your Relationship Status? Information not available 03/28/2023 Has Tobacco Cessation Counseling Been Provided? No N/a As Pt. No Longer Smokes Information not available 03/28/2023 How Many Years Have You Smoked Tobacco? 60 [id number] Information not available 08/09/2020 Sex: Unknown Functional Status Question Answer Note LastModified by Organizat ion Details LastModified Time Do you use any illicit or recreational drugs? No Information not available 03/28/2023 Do you or have you ever used any other forms of tobacco or nicotine? No Information not available 03/28/2023 What is your level of alcohol consumption? None [id number] Information not available 08/09/2020 Do you or have you ever used smokeless tobacco? Never used smokeless tobacco [id number] Information not available 08/09/2020 Do you or have you ever used e-cigarettes or vape? Never used electronic cigarettes [id number] Information not available 08/09/2020 Mental Status None recorded. Family History Relationship Description Onset Age of this Age Resolved Age Notes LastModified by Organization Details LastModified Time Father No current problems or disability [facility] Not available 08/21 09:44:07 Mother No current problems or disability [facility] Not available 08/21 09:44:07 Notes:N/C Medical History No medical history recorded. Gynecological HistoryNo gynecological history recorded. Obstetrics History GPAL:G 0 P 0 0 0 0 Immunizations Vaccine Type Date Status Note Provider Nam e and Address Organization Details Recorded Time Influenza, adjuvanted, quadrivalent, PF 08/27/2022 completed Gabriela David [facility] 11/01/2023 11:51:08 Influenza, adjuvanted, quadrivalent, PF 05/20/2023 completed Gabriela gonzalez [facility] 11/01/2023 11:51:23 Past Encounters Encounter ID Performer Location Encounter Start Date Encounter Closed Date Diagnosis/Indication Diagnosis SNOMED-CT Code Diagnosis ICD10 Code Diagnosis Note [id number] ROMY PINEDA [address] [facility] [place] [address] 08/21/2019 09:44:29 09/01/2019 10:32:18 Tuberculosis 74700410 A18.89 continue Isoniazid, Rifampin, Pyrazinami de, Pyridoxine f/u at [facility] TB clinic on 08/25. Healthcare associated bacterial pneumonia 031820380 Y95 completed abx txcontinue brovana, pulmicort, duonebs scheduled and prn albuterolp ulmo and RT to follow here. 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 Mediastinal emphysema 16 198582 J98.2 pneumomedi astinum related to infection/ bronchosco pyno interventi on neededif resp sx develop will repeat cxr/CT chest Physical deconditioning 2266360159 9102 R68.89 PT/OT eval. [id number] MD KAREN Cooper [address] [place] [address] 08/24/2019 08:02:58 09/01/2019 10:59:44 Tuberculosis 77039524 A15.0 see HPIfollchristian d by ID of note in hospital case discussed with dept of public health ID and determined it was safe to take patient off airborne precaution s as she had been treated for > 14 daysf/u with [facility] clinic [place] [facility] current Ab courseadd probioticu pdate ID with change in presentati onmonitor respirator y function Healthcare associated bacterial pneumonia [id number] Y95 see HPIcomplet ed vanco and zosynsee above Asthenia 01894681 R53.1 PT OT eval and treatmonit or fall risk Severe protein-calorie malnutrition (Bell: less than 60 percent of standard weight) 192928452 E41 carrying dx from hospitaldi etary evalmonito r weights and PO intake History of malignant neoplasm of ovary 041756872 Z85.43 added to PMH [id number] KEILA Sepulveda [address] [place] [address] 09/01/2019 07:19:48 09/04/2019 15:23:56 Tuberculosis 47583047 A15.0 see HPIfollowe d by ID of note in hospital case discussed with dept of public health ID and determined it was safe to take patient off airborne precaution s as she had been treated for > 14 daysf/u with TB clinic todayconti nue current Ab courseprob ioticupdat e ID with change in presentati onmonitor respirator y function Healthcare associated bacterial pneumonia 893116740 Y95 see HPIcomplet ed vanco and zosynsee above Asthenia 01705718 R53.1 PT OT eval and treatmonit or fall risk Severe protein-calorie malnutrition (Bell: less than 60 percent of standard weight) 461935945 E41 carrying dx from hospitaldi etary eval pt has gained 2 lbs in the past week according to weekly weight data, has good reported appetite. monitor weights [place] [id number] Nichelle Dooley NP [address] [place] [address] 09/08/2019 07:58:08 09/17/2019 14:56:26 Tuberculosis 45051320 A15.0 see HPIfojaida garibay by ID of note in hospital [...] respirator y function Healthcare associated bacterial pneumonia 918772837 Y95 see HPIcomplet ed vanco and zosynsee above Asthenia 11328674 R53.1 PT OT eval and treatmonit or fall risk Severe protein-calorie malnutrition (Bell: less than 60 percent of standard weight) 262816084 E41 carrying dx from hospitaldi etary eval pt has good reported appetite. monitor weights [place] intake [id number] Nichelle Dooley NP [address] [place] [address] 09/15/2019 07:35:21 09/23/2019 11:38:11 Tuberculosis 01557999 A15.0 see HPIcorina garibay by TB clinic of note in [...] respirator y function Healthcare associated bacterial pneumonia 401699116 Y95 see HPIcomplet ed vanco and zosynsee above Asthenia 43850378 R53.1 PT OT eval and treatmonit or fall risk Severe protein-calorie malnutrition (Bell: less than 60 percent of standard weight) 671015222 E41 carrying dx from hospitaldi etary eval- pt now on ensures pt has good reported appetite. monitor weights [place] PO intake [id number] Nichelle Dooley NP KAREN WERO [address] [place] [address] 09/22/2019 09:39:42 09/29/2019 09:21:51 Tuberculosis 96912086 A15.0 see HPIfollchristian d by TB clinic [...] O2 orders monitor respirator y function Asthenia 09849847 R53.1 Pt has been DCd from PT- she has reached her baseline, only walking about 30 ft with walker, varies with transfers. monitor fall risk Severe protein-calorie malnutrition (Bell: less than 60 percent of standard weight) 444143967 E41 carrying dx from hospital has lost about 9lbs in the past month pt on ensures tid will increase mirtazapin e to 15mg qd today monitor ?weight loss due to ovarian cancer History of malignant neoplasm of ovary 388133032 Z85.43 added to PMH Per family the pt had one day of treatment for this and then never followed up with this- she refused care. Mixed anxi ety and depressive disorder 604812580 F41.8 will order psych eval today monitor mood [id number] KEILA Sepulveda WERO [address] [place] [address] 09/28/2019 07:22:29 10/01/2019 14:27:45 Tuberculosis 32646581 A15.0 see HPI stable. followed by TB [...] O2 orders monitor respirator y function Asthenia 89270406 R53.1 Pt has been DCd from PT- she has reached her baseline, only walking about 30 ft with walker, varies with transfers. monitor fall risk Severe protein-calorie malnutrition (Bell: less than 60 percent of standard weight) 270578692 E41 carrying dx from hospital has lost over 10lbs since her admission, however she appears to have leveled out. pt on ensures tid mirtazapin e increased to 15mg qd last week continue to monitor ?weight loss due to ovarian cancer History of malignant neoplasm of ovary 616359690 Z85.43 added to PMH Per family the pt had one day of treatment for this and then never followed up with this- she refused care. Mixed anxi ety and depressive disorder 619346650 F41.8 awaiting psych eval monitor mood [id number] KEILA Sepulveda [address] [place] [address] 10/08/2019 07:24:07 10/12/2019 16:27:09 Tuberculosis 98032854 A15.0 see HPI stable. followed by TB [...] less than 60 percent of standard weight) 342592592 E41 carrying dx from hospital has lost over 7lbs since her admission, appears to be stable at this time.pt on ensures tid mirtazapin e 15mg qd continue to monitor History of malignant neoplasm of ovary 644189774 Z85.43 added to PMH Per family the pt had one day of treatment for this and then never followed up with this- she refused care. Mixed anxi ety and depressive disorder 091461133 F41.8 pt recently seen by [facility], no consult notes in chart yet monitor mood [id number] KEILA Sepulveda [address] [place] [phone] 10/12/2019 08:06:04 10/16/2019 13:50:57 Tuberculosis 45325251 A15.0 see HPI stable. followed by TB [...] less than 60 percent of standard weight) 474047098 E41 carrying dx from hospital pt on ensures tid mirtazapin e 15mg qd pt had initially lost weight, now improving continue to monitor Mixed anxi ety and depressive disorder 327178128 F41.8 pt recently seen by [facility], awaiting consult notes. monitor mood History of malignant neoplasm of ovary 452444101 Z85.43 added to PMH Per family the pt had one day of treatment for this and then never followed up with this- she refused care. [id number] KEILA Sepulveda WERO [address] [place] [address] rd [place] [address] 10/19/2019 08:10:14 10/22/2019 14:29:13 Tuberculosis 06652502 A15.0 see HPI stable. followed by TB [...] less than 60 percent of standard weight) 704321549 E41 carrying dx from hospital pt on ensures tid mirtazapin e 15mg qd pt had initially lost weight, now improving continue to monitor Mixed anxi ety and depressive disorder 664484413 F41.8 mirtazapin e 15mg qd monitor mood psych following History of malignant neoplasm of ovary 096842360 Z85.43 added to PMH Per family the pt had one day of treatment for this and then never followed up with this- she refused care. [id number] MD KAREN Cooper W[facility] [address] [place] [address] 11/18/2019 15:07:44 11/22/2019 15:31:49 Tuberculosis 77042424 A15.0 followed by ID f/u with TB clinic [place] current Ab courseupda te ID with change in presentati onmonitor respirator y functioncu rrently stable at baseline Nausea and vomiting 1692 1999 R11.2 appears secondary to medication administra evelyn have patient take zofran priormonit or for sx control [id number] Nichelle Dooley NP [facility] [address] [place] [address] 12/01/2019 12:14:48 12/11/2019 14:40:43 Tuberculosis 54484124 A15.0 followed by ID seen by tb [...] less than 60 percent of standard weight) 047641701 E41 carrying dx from hospital pt on ensures tid mirtazapin e 15mg qd pt continues to have weight loss recent DC of abx as above may be helpful, as these were likely causing her some nausea continue to monitor weights bi-weekly for 4 weeks Mixed anxi ety and depressive disorder 467752115 F41.8 mirtazapin e 15mg qd monitor mood psych following History of malignant neoplasm of ovary 326566579 Z85.43 added to PMH Per family the pt had one day of treatment for this and then never followed up with this- she refused care. [id number] KEILA Sepulveda WERO [address] [place] [address] 12/29/2019 12:37:57 01/01/2020 15:52:34 Cough 31065476 R05 With associated chills, fatigue, body aches. Will check for flu and resp viral panel, cbc/cmp of note there is a resident on the floor +for flu A encourage fluids supportive care continue to monitor [id number] Nichelle Dooley NP [facility] [address] [place] [phone] 01/15/2020 14:07:52 01/21/2020 13:07:58 Tuberculosis 84041897 A15.0 followed by ID continues on multiple [...] on site prn currently stable at baseline [id number] MD KAREN Pope WERO [address] [place] [phone] 01/22/2020 17:32:59 01/28/2020 18:46:52 Tuberculosis 32059485 A15.0 She is on ethambutol 800 mg [...] and pulmonary as able. Nausea and vomiting 1693 1999 R11.2 Sxs continue intermitte ntly, now that back on Tb meds. Continue with zofran q 6 hrs prn Monitor for sx control Severe protein-calorie malnutrition (Bell: less than 60 percent of standard weight) 786076711 E41 She has lost 20# since here. BMI still in nl. range. Was given this dx in the hospital. Continue ensure TID and mirtazapin e 15 mg qd Continue to monitor weights Mixed anxi ety and depressive disorder 243153041 F41.8 Mood good today. Continue mirtazapin e 15 mg qd. monitor mood Follow with NEG as able. History of malignant neoplasm of ovary 539727599 Z85.43 Hx of. Had DYLLAN/BSO Per family the pt had one day of treatment for this and then never followed up with this- she refused care. Chronic ob structive pulmonary disease 88551386 J43.8 Likely with underlying COPD. Continue meds as above. Will need full PFTs when able. [id number] KEILA BRASHER [address] [place] [address] 03/18/2020 09:19:47 03/22/2020 10:40:26 Chronic obstructive pulmonary disease 01234111 J44.9 monitor for any sob, O2 if needed Mixed anxi ety and depressive disorder 166020040 F41.8 Continue mirtazapin e 15 mg qd. monitor mood Follow with NEG as able. Severe protein-calorie malnutrition (Bell: less than 60 percent of standard weight) 228114485 E43 Continue ensure TID and mirtazapin e 15 mg qd Continue to monitor weights Tuberculosis 89720010 A1 8.89 continue ethambutol 800 mg qd, isoniazid 300 mg qd and pyrazinami de 1000 mg qd Nebs all transition ed to inhalers, now on combivent QID, symbicort 80/4.5 two puffs BID and proair with spacer q 4h prn. Continue O2 prn to maintain sats >90% Monitor respirator y function F/U with resp therapist and pulmonary as able. [id number] KEILA BRASHER [address] [place] [address] 04/11/2020 10:32:37 04/19/2020 15:35:04 Mixed anxiety and depressive disorder 088022664 F41.8 Continue mirtazapin e 15 mg qd. monitor mood Follow with NEG as able. [id number] Toma Alvarado MD [facility] [address] [place] [address] 05/20/2020 06:57:19 05/24/2020 10:36:19 Chronic obstructive pulmonary disease 81685941 J44.9 Symbicort 4.5-80: 2 puffs bidCombive nt respimat 20-100: one puff tidalbuter ol HFA 1 puff q4h prn will monitor History of malignant neoplasm of ovary 855973788 Z85.43 s/p DYLLAN, SBO; has refused further treatment Mixed anxi ety and depressive disorder 732398849 F41.8 mirtazapin e 15 mg at will monitor Tuberculosis 91323941 A1 8.89 fu [facility] clinic Hypothyroidism 63630958 E03.8 levothyrox ine 75 mcg dailywill monitor [id number] SON LEIJA NP [facility] [address] [place] [address] 07/13/2020 10:24:49 07/15/2020 14:24:57 Chronic obstructive pulmonary disease 98378593 J44.9 monitor for any sob, O2 if needed symbicort 80/4.5 q12 hr combivent 20/100 tid flonase daily Healthcare associated bacterial pneumonia 923111608 J15.9 recovered Hypothyroidism 06428413 E03.9 levothyrox ine 75 mcg daily will monitor Mixed anxi ety and depressive disorder 804938186 F41.8 mirtazapin e 15 mg qd. monitor mood Follow with NEG as able. Tuberculosis 16405577 A1 8.89 combivent tid, symbicort 80/4.5 two puffs BID proair with spacer q 4h prn. Continue O2 prn to maintain sats >90% Monitor respirator y function F/U with resp therapist and pulmonary as able. Severe protein-calorie malnutrition (Bell: less than 60 percent of standard weight) 739174526 E43 ensure TID and mirtazapin e 15 mg qd thiamine 100 mg daily B6 100 daily Continue to monitor weights [id number] SON LEIJA NP [facility] [address] [address] 08/23/2020 11:08:00 08/25/2020 13:34:50 Chronic obstructive pulmonary disease 93938166 J44.9 monitor for any sob, O2 if needed symbicort 80/4.5 q12 hr combivent 20/100 tid flonase daily SARS-CoV-2 556439142 U07 .1 encourage po intake O2 prn consider IVF if she becomes anorexic [id number] SON LEIJA NP [address] [address] 08/29/2020 12:18:09 08/31/2020 15:39:28 Chronic obstructive pulmonary disease 31403568 J44.9 monitor for any sob, O2 if needed symbicort 80/4.5 q12 hr combivent 20/100 tid flonase daily loratadine 10mg daily Healthcare associated bacterial pneumonia 564842281 J15.9 recovered History of malignant neoplasm of ovary 812715841 Z85.43 DYLLAN SBO no further treatment Hypothyroidism 84071964 E03.9 levothyrox ine 75 mcg daily will monitor Mediastinal emphysema 16 938734 J98.2 2019 pneumomedi astinum related to infection/ bronchosco py no interventi on needed if resp sx develop will repeat cxr/CT chest Mixed anxi ety and depressive disorder 467529311 F41.8 mirtazapin e 15 mg qd. monitor mood Follow with NEG as able. SARS-CoV-2 442196079 U07 .1 encourage po intake O2 prn consider IVF if she becomes anorexic Severe protein-calorie malnutrition (Bell: less than 60 percent of standard weight) 480705698 E43 ensure TID and mirtazapin e 15 mg qd thiamine 100 mg daily B6 100 daily Continue to monitor weights Tuberculosis 98374237 A1 8.89 combivent tid, symbicort 80/4.5 two puffs BID proair with spacer q 4h prn. Continue O2 prn to maintain sats >90% Monitor respirator y function F/U with resp therapist and pulmonary as able. [id number] KEILA BRASHER [address] [address] 08/30/2020 08:12:16 09/02/2020 10:34:19 SARS-CoV-2 729686685 U07.1 encourage po intake O2 prn consider IVF if she becomes anorexic [id number] SON LEIJA NP [address] [address] 08/31/2020 11:03:06 09/02/2020 11:07:24 SARS-CoV-2 232438814 U07.1 08/16, 08/23 positive encourage po intake O2 prn consider IVF if she becomes anorexic [id number] SON LEIJA NP [address] [address] 09/01/2020 09:30:51 09/06/2020 10:25:57 SARS-CoV-2 443394253 U07.1 08/16, 08/23 positive encourage po intake O2 prn consider IVF if she becomes anorexic [id number] SON LEIJA NP [address] [address] 09/02/2020 12:59:16 09/06/2020 10:40:27 SARS-CoV-2 519225639 U07.1 08/16, 08/23 positive, 08/29 negative encourage po intake O2 prn consider IVF if she becomes anorexic [id number] Toma Alvarado MD [address] [address] 09/23/2020 06:10:55 09/27/2020 11:42:12 Chronic obstructive pulmonary disease 89950807 J41.0 Advair 250-50: one puff bidCombive nt Respimat 20-100: one puff tidalbuter ol HFA 1 puff q4h prn will monitor History of malignant neoplasm of ovary 333417695 Z85.43 s/p DYLLAN, SBO; has refused further treatment Hypothyroidism 89557902 E03.8 levothyrox ine 75 mcg dailywill monitor Mixed anxi ety and depressive disorder 963183950 F41.8 mirtazapin e 15 mg at hswill monitor SARS-CoV-2 547883859 U07 .1 recoveredw ill continue to monitor [id number] KEILA BRASHER [address] [facility] [place] [address] 11/15/2020 13:47:46 11/16/2020 14:55:19 Chronic obstructive pulmonary disease 91175232 J44.9 monitor for any sob, O2 if needed advair 250/50 daily combivent 20/100 tid flonase daily albuterol prn loratadine 10mg daily Healthcare associated bacterial pneumonia 761201882 J15.9 recovered History of malignant neoplasm of ovary 473786138 Z85.43 DYLLAN SBO no further treatment Hypothyroidism 21256167 E03.9 levothyrox ine 75 mcg daily will monitor Mediastinal emphysema 16 990971 J98.2 2019 pneumomedi astinum related to infection/ bronchosco py no interventi on needed if resp sx develop will repeat cxr/CT chest Mixed anxi ety and depressive disorder 236691025 F41.8 mirtazapin e 15 mg qd. monitor mood Follow with NEG as able. SARS-CoV-2 270396519 U07 .1 recovered 08/16, 08/23 positive, 08/29 negative encourage po intake O2 prn consider IVF if she becomes anorexic Severe protein-calorie malnutrition (Bell: less than 60 percent of standard weight) [id number] E43 ensure TID and mirtazapin e 15 mg qd thiamine 100 mg daily B6 100 daily Continue to monitor weights Tuberculosis 88432735 A1 8.89 combivent tid, advair daily proair with spacer q 4h prn. Continue O2 prn to maintain sats >90% Monitor respirator y function F/U with resp therapist and pulmonary as able. 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 mirtazapin e 15 mg at hswill monitor SARS-CoV-2 042888698 U07 .1 diagnosed 09/02 recovered will continue to monitor [id number] SON LEIJA NP [address] [address] 03/01/2021 08:04:33 03/03/2021 13:38:48 Chronic obstructive pulmonary disease 92989096 J44.9 monitor for any sob, O2 if needed advair 250/50 bid combivent 20/100 tid flonase daily albuterol prn loratadine 10mg daily History of malignant neoplasm of ovary 219720206 Z85.43 DYLLAN SBO no further treatment Hypothyroidism 52816605 E03.9 levothyrox ine 75 mcg daily will monitor Mediastinal emphysema 16 457042 J98.2 2019 pneumomedi astinum related to infection/ bronchosco py no interventi on needed if resp sx develop will repeat cxr/CT chest Mixed anxi ety and depressive disorder 021709687 F41.8 mirtazapin e 15 mg qd. monitor mood Follow with NEG as able. Pain in right knee 31011 56840 29881 M25.561 lidoderm patch right kneediclof enac gel bidtylenol 650 mg q6hr prn Severe protein-calorie malnutrition (Bell: less than 60 percent of standard weight) 194847771 E43 ensure TID mirtazapin e 15 mg qd thiamine 100 mg daily B6 100 daily Continue to monitor weights Tuberculosis 85463352 A1 8.89 combivent tid, advair 250/50 bid proair with spacer q 4h prn. Continue O2 prn to maintain sats >90% Monitor respirator y function F/U with resp therapist and pulmonary as able. [id number] MD KAREN Morales [address] [place] [address] 04/21/2021 06:57:11 05/02/2021 14:03:31 Chronic obstructive pulmonary disease 64711222 J41.0 Advair 250-50: one puff bidCombive nt Respimat 20-100: one puff tidalbuter ol HFA 1 puff q4h prnwill monitor History of malignant neoplasm of ovary 524392159 Z85.43 s/p DYLLAN, SBOhas refused further treatment Hypothyroidism 23467288 E03.8 levothyrox ine 75 mcg dailywill monitor Mixed anxi ety and depressive disorder 135213829 F41.8 mirtazapin e 15 mg at hswill monitor SARS-CoV-2 439074363 U07 .1 diagnosed 09/02 recovered will continue to monitor Gastroesop hageal reflux disease without esophagitis 806236815 K21.9 famotidine 20 mg at hswill monitor Acute conjunctivitis 537 72933 H10.011 improvingc omplete course of polytrim solutionwi ll monitor [id number] KEILA BRASHER [address] [place] [address] 06/14/2021 11:54:10 06/16/2021 10:06:14 Chronic obstructive pulmonary disease 36759201 J41.0 monitor for any sob, O2 if needed advair 250/50 bid combivent 20/100 tid flonase daily albuterol prn loratadine 10mg daily Hypothyroidism 65219838 E03.8 levothyrox ine 75 mcg daily will monitor Mixed anxi ety and depressive disorder 147053959 F41.8 mirtazapin e 15 mg qd. monitor mood Follow with NEG as able. Pain in right knee 12774 67493 66988 M25.561 lidoderm patch right kneediclof enac gel bidtylenol 650 mg q6hr prn Tuberculosis 42588132 A1 8.89 combivent tid, advair 250/50 bid proair with spacer q 4h prn. O2 prn to maintain sats >90% Monitor respirator y function F/U with resp therapist and pulmonary as able. Gastroesop hageal reflux disease without esophagitis 378880871 K21.9 pepcid 20 mg daily Vitamin deficiency 94590 002 E56.9 mvi dailythiam ine 100 mg dailyB6 daily [id number] MD KAREN Morales [address] [place] [phone] 08/23/2021 06:02:03 08/25/2021 11:44:21 Chronic obstructive pulmonary disease 87650291 J41.0 Advair 250-50: one puff bidCombive nt Respimat 20-100: one puff tidalbuter ol HFA 1 puff q4h prnwill monitor Gastroesop hageal reflux disease without esophagitis 486928681 K21.9 famotidine 20 mg at hswill monitor Hypothyroidism 68813807 E03.8 levothyrox ine 75 mcg dailywill monitor History of malignant neoplasm of ovary 323868233 Z85.43 s/p DYLLAN, SBOhas refused further treatment Mixed anxi ety and depressive disorder 283384368 F41.8 mirtazapin e 15 mg at hswill monitor Vitamin deficiency 24339 002 E56.8 pyridoxine 100 mg dailythiam ine 100 mg dailyMVI dailywill monitor Osteoarthritis 743722486 M17.11 APAP 650 mg q6h prndiclofe nac topical gel to right knee prnBengay cream to right knee q8h prnlidocai ne patch 4% to right knee dailywill monitor [id number] KEILA BRASHER [address] [place] [address] [place] [address] 10/19/2021 12:58:57 10/24/2021 11:46:50 Chronic obstructive pulmonary disease 05822166 J41.0 monitor for any sob, O2 if needed advair 250/50 bid combivent 20/100 tid flonase daily albuterol prn loratadine 10mg daily Hypothyroidism 05605100 E03.8 levothyrox ine 75 mcg daily will monitor Mixed anxi ety and depressive disorder 965676131 F41.8 mirtazapin e 15 mg qd. monitor mood Follow with NEG as able. Pain in right knee 97513 02699 24277 M25.561 lidoderm patch right kneediclof enac gel bidtylenol 650 mg q6hr prn Tuberculosis 93588840 A1 8.89 combivent tid, advair 250/50 bid proair with spacer q 4h prn. O2 prn to maintain sats >90% Monitor respirator y function F/U with resp therapist and pulmonary as able. Gastroesop hageal reflux disease without esophagitis 184119898 K21.9 pepcid 20 mg daily Vitamin deficiency 21475 002 E56.9 mvi dailythiam ine 100 mg dailyB6 daily [id number] SON LEIJA NP [address] [address] 11/09/2021 09:05:30 11/15/2021 08:55:12 Chronic obstructive pulmonary disease 37767890 J41.0 monitor for any sob, O2 if needed advair 250/50 bid combivent 20/100 tid flonase daily albuterol prn loratadine 10mg daily Pain in right knee 47391 45685 79370 M25.561 lidoderm patch right kneediclof enac gel bidtylenol 650 mg q6hr prn [id number] SON LEIJA NP [address] [address] 11/10/2021 10:03:11 11/15/2021 10:48:07 SARS-CoV-2 356152122 U07.1 11/08 covid positive, asymptomat icPatient covid positiveco ntinue supportive caremonito r PO intake and need for supplement al [id number] need for adjuvent therapyto ED for acute decompensa tion [id number] SON LEIJA NP [address] [address] 11/13/2021 12:31:35 11/15/2021 11:47:51 SARS-CoV-2 667185239 U07.1 11/08 covid positive, asymptomat ic-recover ed by Rhonda blakely covid positive continue supportive care monitor PO intake and need for supplement al O2 monitor need for adjuvent therapy to ED for acute decompensa tion [id number] Toma Alvarado MD [address] [address] 12/22/2021 07:56:46 12/27/2021 16:02:07 Chronic obstructive pulmonary disease 19782028 J41.0 Advair 250-50: one puff bidCombive nt Respimat 20-100: one puff tidalbuter ol HFA 1 puff q4h prnwill monitor Gastroesop hageal reflux disease without esophagitis 741403704 K21.9 famotidine 20 mg at hswi monitor Hypothyroidism 22770046 E03.8 levothyrox ine 75 mcg dailywill monitor Mixed anxi ety and depressive disorder 324255346 F41.8 mirtazapin e 15 mg at hswi monitor SARS-CoV-2 372342375 U07 .1 tested positive 11/08/21asy mptomatic coursereco shelli will continue to monitor [id number] SON LEIJA NP [address] [address] 01/19/2022 08:44:18 01/23/2022 11:01:49 Chronic obstructive pulmonary disease 56829225 J41.0 monitor for any sob, O2 if needed advair 250/50 bid combivent 20/100 tid flonase daily albuterol prn loratadine 10mg daily Hypothyroidism 28444112 E03.8 levothyrox ine 75 mcg daily will monitor Mixed anxi ety and depressive disorder 670970039 F41.8 mirtazapin e 15 mg qd. monitor mood Follow with NEG as able. Pain in right knee 07061 54775 27568 M25.561 lidoderm patch right kneediclof enac gel bidtylenol 650 mg q6hr prn Tuberculosis 88125164 A1 8.89 combivent tid, advair 250/50 bid proair with spacer q 4h prn. O2 prn to maintain sats >90% Monitor respirator y function F/U with resp therapist and pulmonary as able. Gastroesop hageal reflux disease without esophagitis 651213450 K21.9 pepcid 20 mg daily Vitamin deficiency 39316 002 E56.9 mvi dailythiam ine 100 mg dailyB6 daily [id number] SON LEIJA NP [address] [address] 02/16/2022 11:50:24 02/20/2022 12:03:24 Chronic obstructive pulmonary disease 05571819 J41.0 monitor for any sob, O2 if needed advair 250/50 bid combivent 20/100 tid flonase daily albuterol prn loratadine 10mg daily Hypothyroidism 45061187 E03.8 levothyrox ine 75 mcg daily will monitor Mixed anxi ety and depressive disorder 707846451 F41.8 mirtazapin e 15 mg qd. monitor mood Follow with NEG as able. Pain in right knee 25329 95764 54142 M25.561 lidoderm patch right kneediclof enac gel bidtylenol 650 mg q6hr prn Tuberculosis 55393870 A1 8.89 combivent tid, advair 250/50 bid proair with spacer q 4h prn. O2 prn to maintain sats >90% Monitor respirator y function F/U with resp therapist and pulmonary as able. Gastroesop hageal reflux disease without esophagitis 346285168 K21.9 pepcid 20 mg daily Vitamin deficiency 67371 002 E56.9 mvi dailythiam ine 100 mg dailyB6 daily [id number] CHASE Eduardo [address] [address] 03/08/2022 11:23:24 03/13/2022 16:32:13 Cellulitis of finger of right hand [id number] 3670710 L03.011 bacitracin cream apply qd till healedmoni tor. [id number] Toma Alvarado MD [address] [address] 03/30/2022 08:39:42 04/03/2022 11:43:48 Chronic obstructive pulmonary disease 94414874 J41.0 Advair 250-50: one puff bidCombive nt Respimat 20-100: one puff tidalbuter ol HFA 1 puff q4h prnwill monitor Gastroesop hageal reflux disease without esophagitis 104787038 K21.9 famotidine 20 mg at hswill monitor Hypothyroidism 73253095 E03.8 levothyrox ine 75 mcg dailywill monitor Mixed anxi ety and depressive disorder 720405713 F41.8 mirtazapin e 15 mg at hswill monitor Vitamin deficiency 28370 002 E56.9 pyridoxine 100 mg dailythiam ine 100 mg dailyMVI dailywill monitor Osteoarthritis 275420831 M17.11 APAP 650 mg q6h prndiclofe nac topical gel to right knee bid prnBengay cream to right knee q8h prnlidocai ne patch 4% to right knee dailywill monitor [id number] SON LEIJA NP [address] [address] 05/23/2022 13:08:08 05/29/2022 16:22:19 Chronic obstructive pulmonary disease 64866795 J41.0 Advair 250-50: one puff bidCombive nt Respimat 20-100: one puff tidalbuter ol HFA 1 puff q4h prnwill monitor Gastroesop hageal reflux disease without esophagitis 819951917 K21.9 famotidine 20 mg at hswill monitor Hypothyroidism 72816675 E03.8 levothyrox ine 75 mcg dailywill monitor Mixed anxi ety and depressive disorder 909921287 F41.8 mirtazapin e 15 mg at hswill monitor Vitamin deficiency 40251 002 E56.9 pyridoxine 100 mg dailythiam ine 100 mg dailyMVI dailywill monitor Osteoarthritis 840761729 M17.11 APAP 650 mg q6h prndiclofe nac topical gel to right knee bid prnBengay cream to right knee q8h prnlidocai ne patch 4% to right knee dailywill monitor Tuberculosis 77503286 A1 8.89 combivent tid, advair 250/50 bid proair with spacer q 4h prn. O2 prn to maintain sats >90% Monitor respirator y function F/U with resp therapist and pulmonary as able. [id number] Toma Alvarado MD [address] [address] 07/13/2022 07:10:41 07/17/2022 14:08:46 Chronic obstructive pulmonary disease 67251641 J41.0 Advair 250-50: one puff bidCombive nt Respimat 20-100: one puff tidalbuter ol HFA 1 puff q4h prnwill monitor Hypothyroidism 49370552 E03.8 levothyrox ine 75 mcg dailywill monitor Mixed anxi ety and depressive disorder 546916263 F41.8 mirtazapin e 15 mg at hswill monitor Gastroesop hageal reflux disease without esophagitis 719250675 K21.9 famotidine 20 mg at hswill monitor History of malignant neoplasm of ovary 669136323 Z85.43 s/p DYLLAN, SBOhas refused further treatment [id number] SON LEIJA NP [address] [address] 09/05/2022 17:06:29 09/11/2022 14:11:08 Chronic obstructive pulmonary disease 35451908 J41.0 Advair 250-50: one puff bidCombive nt Respimat 20-100: one puff tidalbuter ol HFA 1 puff q4h prnwill monitor Hypothyroidism 05055501 E03.8 levothyrox ine 75 mcg dailywill monitor Mixed anxi ety and depressive disorder 078701659 F41.8 mirtazapin e 15 mg at hswill monitor Gastroesop hageal reflux disease without esophagitis 876979026 K21.9 famotidine 20 mg at hswill monitor Tuberculosis 35323681 A1 8.89 combivent tid, advair 250/50 bid proair with spacer q 4h prn. O2 prn to maintain sats >90% Monitor respirator y function F/U with resp therapist and pulmonary as able. Toma Alvarado MD [address] [address] 12/07/2022 10:38:11 12/11/2022 08:03:41 Chronic obstructive pulmonary disease 99100815 J41.0 Advair 250-50: one puff bidCombive nt Respimat 20-100: one puff tidalbuter ol HFA 1 puff q4h prnwill monitor Mixed anxi ety and depressive disorder 822988485 F41.8 mirtazapin e 15 mg at hswill monitor Gastroesop hageal reflux disease without esophagitis 693323424 K21.9 famotidine 20 mg at hswill monitor Hypothyroidism 47780140 E03.8 levothyrox ine 75 mcg dailywill monitor Chronic pain 09109500 G8 9.29 diclofenac gel to right knee bid prnlidocai ne patch to right knee dailyAPAP 650 mg q6h prnwill monitor [id number] SON LEIJA NP [address] [address] 01/28/2023 14:21:07 01/31/2023 15:22:09 Chronic obstructive pulmonary disease 43129792 J41.0 Advair 250-50: one puff bidCombive nt Respimat 20-100: one puff tidalbuter ol HFA 1 puff q4h prnwill monitor Mixed anxi ety and depressive disorder 987960370 F41.8 mirtazapin e 15 mg at hswill monitor Gastroesop hageal reflux disease without esophagitis 781336434 K21.9 famotidine 20 mg at hswill monitor Hypothyroidism 24547016 E03.8 levothyrox ine 75 mcg dailywill monitor Chronic pain 14448989 G8 9.29 diclofenac gel to right knee bid prnlidocai ne patch to right knee dailyAPAP 650 mg q6h prnwill monitor [id number] KEILA BRASHER WERO [address] [place] [address] 02/15/2023 13:27:41 02/20/2023 16:52:34 Chronic obstructive pulmonary disease 13330489 J41.0 Advair 250-50: one puff bidCombive nt Respimat 20-100: one puff tidalbuter ol HFA 1 puff q4h prnwill monitor Mixed anxi ety and depressive disorder 871231352 F41.8 mirtazapin e 15 mg at hswill monitor Gastroesop hageal reflux disease without esophagitis 439870643 K21.9 famotidine 20 mg at hswill monitor Hypothyroidism 12494882 E03.8 levothyrox ine 75 mcg dailywill monitor Chronic pain 06747220 G8 9.29 diclofenac gel to right knee bid prnlidocai ne patch to right knee dailyAPAP 650 mg q6h prnwill monitor Vitamin deficiency 54525 002 E56.9 pyridoxine 100 mg dailythiam ine 100 mg dailyMVI dailywill monitor [id number] MD KAREN Pope [address] [place] [phone] 5 03/28/2023 13:20:05 04/11/2023 13:24:13 Chronic obstructive pulmonary disease 54038886 J41.0 No current sxs.Contin ue Advair 250/50 BID, Combivent Respimat 1 puff TID and albuterol HFA 1 puff q 4 hrs prnMonitor resp. status. Mixed anxi ety and depressive disorder 145870865 F41.8 Mood good today.Cont inue mirtazapin e 15 mg at hsMonitor moodPsych follows, no GDR recommende d. Gastroesop hageal reflux disease without esophagitis 207504257 K21.9 Under good controlCon tinue famotidine 20 mg at hsMonitor for sxs Hypothyroidism 28197117 E03.8 Last TSH 02/2021 was WNLContinu e levothyrox ine 75 mcg dailyMonit or TSH yearly, will order with next labs. Chronic pain 22040188 G8 9.29 She says pain is adequately controlled .Continue diclofenac gel to right knee BID prn, lidocaine patch to right knee daily and APAP 650 mg q 6 hrs prnMonitor sxs. Vitamin deficiency 23926 002 E56.8 Continue pyridoxine 100 mg daily, thiamine 100 mg daily, and MVI dailyNo monitoring needed. [id number] KEILA BRASHER [address] [place] [address] 04/05/2023 13:30:53 04/11/2023 13:56:07 Chronic obstructive pulmonary disease 27913897 J41.0 Advair 250-50: one puff bidCombive nt Respimat 20-100: one puff tidalbuter ol HFA 1 puff q4h prnwill monitor Mixed anxi ety and depressive disorder 153891202 F41.8 mirtazapin e 15 mg at hswill monitor [id number] KEILA BRASHER [address] [place] [address] 05/17/2023 10:17:44 05/21/2023 16:07:38 Chronic obstructive pulmonary disease 90402254 J41.0 Advair 250-50: one puff bidCombive nt Respimat 20-100: one puff tidalbuter ol HFA 1 puff q4h prnwill monitor Mixed anxi ety and depressive disorder 125662583 F41.8 mirtazapin e 15 mg at hswill monitor Gastroesop hageal reflux disease without esophagitis 147428993 K21.9 famotidine 20 mg at hswill monitor Hypothyroidism 48624235 E03.8 levothyrox ine 75 mcg dailywill monitor Chronic pain 98221609 G8 9.29 diclofenac gel to right knee bid prnlidocai ne patch to right knee dailyAPAP 650 mg q6h prnwill monitor Vitamin deficiency 34659 002 E56.9 pyridoxine 100 mg dailythiam ine 100 mg dailyMVI dailywill monitor [id number] KEILA BRASHER WERO [address] [place] [address] 07/08/2023 13:04:17 07/09/2023 20:04:53 Pain of left knee region 7947203894 22162 M25.562 tylenol prnxray of left kneePT OT eval and treat prn [id number] Kianna Alvarez MD [address] [address] 08/16/2023 13:59:50 08/20/2023 11:12:11 Pain of left knee region 1460576910 07027 M25.562 Says it's much better.Con tinue diclofenac gel 4 gms BID and APAP 650 mg q 6 hrs prn.Monito r sxs. Chronic ob structive pulmonary disease 48240833 J41.0 Continues at mild baseline.C ontinue Advair 250/50 BID, Combivent Respimat 1 puff TID and albuterol HFA 1 puff q 4 hrs prnMonitor resp. status. Mixed anxi ety and depressive disorder 024631395 F41.8 Mood remains good at most times.Cont inue mirtazapin e 15 mg qhsMonitor moodPsych continues to follow intermitte ntly, no GDR recommende d. Gastroesop hageal reflux disease without esophagitis 455801350 K21.9 No current sxs.Contin ue famotidine 20 mg qhsMonitor for sxs Hypothyroidism 47628310 E03.8 Last TSH was in ont inue levothyrox ine 75 mcg dailyMonit or TSH yearly, will order with next labs. Chronic pain 42790202 G8 9.29 As above.Also gets lidocaine patch to right knee daily.Elsy tor [id number] KEILA BRASHER [address] [place] [phone] 10/09/2023 13:25:53 10/22/2023 10:00:48 Chronic obstructive pulmonary disease 35797285 J41.0 Advair 250-50: one puff bidCombive nt Respimat 20-100: one puff tidalbuter ol HFA 1 puff q4h prnwill monitor Mixed anxi ety and depressive disorder 927150583 F41.8 mirtazapin e 15 mg at hswill monitor Gastroesop hageal reflux disease without esophagitis 401194458 K21.9 famotidine 20 mg at hswill monitor Hypothyroidism 44587175 E03.8 levothyrox ine 75 mcg dailywill monitor Chronic pain 43212206 G8 9.29 diclofenac gel to right knee bid prnlidocai ne patch to right knee dailyAPAP 650 mg q6h prnwill monitor Vitamin deficiency 32717 002 E56.9 pyridoxine 100 mg dailythiam ine 100 mg dailyMVI dailywill monitor [id number] CHASE [facility] [address] [place] [address] [place] [address] 10/23/2023 11:46:55 10/30/2023 12:50:00 Contact dermatitis 55805984 L25.9 see hpihydroco rtisone 1% bid for 5 days and re evalPatien t encouraged to avoid scratching or touching affected areanursin g to offer prn tylenol for discomfort . [id number] MD KAREN Pope [address] [place] [address] 5 12/10/2023 16:27:11 01/13/2024 15:10:49 Pain of left knee region 7246380974 05015 M25.562 Continues to do well with diclofenac gel 4 gms BID and APAP 650 mg q 6 hrs prn.Monito r sxs. Chronic ob structive pulmonary disease 79572401 J43.8 No recent exacerbati ons.Contin ue Advair 250/50 BID, Combivent Respimat 1 puff TID and albuterol HFA 1 puff q 4 hrs prnMonitor resp. status. Mixed anxi ety and depressive disorder 733785559 F41.8 Mood is stable, enjoys activities .Continue mirtazapin e 15 mg qhsMonitor moodPsych follows, last seen on 12/15 with no rec for med changes. Gastroesop hageal reflux disease without esophagitis 084211886 K21.9 No current sxs.Contin ue famotidine 20 mg qhsMonitor for sxs Hypothyroidism 82485699 E03.8 Last TSH in 08/2023 was sl. low at 0.17, no FT4 checked and no recheck done.Mandi nue levothyrox ine 75 mcg qd for nowRecheck TSH with FT4. Chronic pain 31922724 G8 9.29 As above.Also gets lidocaine patch to right knee daily.Elsy resendez [id number] CHASE CHE [address] [address] 01/30/2024 11:16:15 02/04/2024 12:17:43 Chronic obstructive pulmonary disease 81943493 J43.8 stableCont inue Advair 250/50 BID,contin ue Combivent Respimat 1 puff TIDcontinu e albuterol HFA 1 puff q 4 hrs prnMonitor resp. status. Mixed anxi ety and depressive disorder 495835956 F41.8 Continue mirtazapin e 15 mg qhsMonitor mood Gastroesop hageal reflux disease without esophagitis 849636177 K21.9 Continue famotidine 20 mg qhsMonitor for sxs Hypothyroidism 75491211 E03.8 Continue levothyrox ine 75 mcg qdmonitor labs prn Chronic pain 18719577 G8 9.29 As above.Also gets lidocaine patch to right knee daily.Elsy resendez [id number] CHASE CHE [address] [address] 03/12/2024 09:49:24 03/25/2024 14:50:38 Chronic obstructive pulmonary disease 91983210 J43.8 stableCont inue Advair 250/50 BID,contin ue Combivent Respimat 1 puff TIDcontinu e albuterol HFA 1 puff q 4 hrs prnMonitor resp. status. Mixed anxi ety and depressive disorder 219043893 F41.8 Continue mirtazapin e 15 mg qhsMonitor mood Gastroesop hageal reflux disease without esophagitis 664528999 K21.9 Continue famotidine 20 mg qhsMonitor for sxs Hypothyroidism 24897669 E03.8 Continue levothyrox ine 75 mcg qdmonitor labs prn Chronic pain 89533155 G8 9.29 As above.Also gets lidocaine patch to right knee daily.Elsy tor Vitamin deficiency 90792 002 E56.9 continue pyridoxine 100 mg daily ,thiamine 100 mg daily ,MVI daily Pain of knee region 1003 984765 M25.569 lidoderm patch right kneediclof enac gel bidtylenol 650 mg q6hr prn [id number] MD KAREN Pope [address] [facility] [place] [address] 04/17/2024 21:47:21 05/05/2024 07:56:21 Chronic obstructive pulmonary disease 91334597 J43.8 No recent exacerbati ons.Contin ue Advair 250/50 BID, Combivent Respimat 1 puff TID and albuterol HFA 1 puff q 4 hrs prnMonitor resp. status. Mixed anxi ety and depressive disorder 369454096 F41.8 Mood good tonight.Co ntinue mirtazapin e 15 mg qhsMonitor moodPsych follows, last seen on 03/23/24 with no rec for med changes. Gastroesop hageal reflux disease without esophagitis 804250945 K21.9 No current sxs.Contin ue famotidine 20 mg qhsMonitor for GI sxs Pain of le ft knee region 9103837640 49433 M25.562 Continues to do well with diclofenac gel 4 gms BID and APAP 650 mg q 6 hrs prn.Also uses lidocaine patch on right knee.Monit or sxs. Hypothyroidism 75864510 E03.8 Last TSH remains sl. low at 0.12, but with normal FT4.Contin ue levothyrox ine 75 mcg qd for nowRecheck TSH with FT4 in 3 months. Chronic pain [id number] G8 9.29 As above.Elsy tor sxs [id number] [facility] [address] [facility] [place] [address] 05/14/2024 13:40:54 05/19/2024 13:06:16 Psoriasis [id number] L40.9 Pruritic half dollar size, scaly red patch noted at base of hairline/ nap of neckwill add triamcinol one cream BID for 14 daysmonito r for resolution . [id number] [facility] [address] [place] [address] 05/19/2024 10:01:52 05/20/2024 14:50:20 Psoriasis [id number] L40.9 Pruritic half dollar size, scaly red patch noted at base of hairline/ nap of neck- improvingc ontinue triamcinol one cream BID for 14 daysmonito r for resolution . [id number] [facility] [address] [place] [address] 06/03/2024 13:59:00 06/05/2024 10:24:55 Chronic obstructive pulmonary disease 52566485 J43.8 stableCont inue Advair 250/50 BID,contin ue Combivent Respimat 1 puff TIDcontinu e albuterol HFA 1 puff q 4 hrs prnMonitor resp. status. Mixed anxi ety and depressive disorder [id number] F41.8 mood has been stableCont inue mirtazapin e 15 mg qhspsych prn Gastroesop hageal reflux disease without esophagitis 167061558 K21.9 Continue famotidine 20 mg qhsMonitor for sxs Hypothyroidism 35711687 E03.8 Continue levothyrox ine 75 mcg qdmonitor labs prn Chronic pain 62331179 G8 9.29 As above.Also gets lidocaine patch to right knee daily.Elsy tor Vitamin deficiency 87724 002 E56.9 continue pyridoxine 100 mg daily ,thiamine 100 mg daily ,MVI daily Pain of knee region 1003 646287 M25.569 lidoderm patch right kneediclof enac gel bidtylenol 650 mg q6hr prn Psoriasis 9631843 L40.9 resolved [id number] [facility] [address] [address] [place] [address] [place] [address] 07/23/2024 10:20:41 07/28/2024 15:44:44 Chronic obstructive pulmonary disease 92173883 J43.8 stableCont inue Advair 250/50 BID,contin ue Combivent Respimat 1 puff TIDcontinu e albuterol HFA 1 puff q 4 hrs prnMonitor resp. status. Mixed anxi ety and depressive disorder 893958126 F41.8 mood has been stableCont inue mirtazapin e 15 mg qhspsych prn Gastroesop hageal reflux disease without esophagitis 307182151 K21.9 Continue famotidine 20 mg qhsMonitor for sxs Hypothyroidism 99287567 E03.8 Continue levothyrox ine 75 mcg qdmonitor labs prn Chronic pain 07474485 G8 9.29 As above.Also gets lidocaine patch to right knee daily.Elsy tor Vitamin deficiency 73084 002 E56.9 continue pyridoxine 100 mg daily ,thiamine 100 mg daily ,MVI daily Pain of knee region 1003 078257 M25.569 stable.lid oderm patch right kneediclof enac gel bidtylenol 650 mg q6hr prn Psoriasis 9911510 L40.9 resolved [id number] [facility] [address] [place] [address] 09/14/2024 12:31:36 09/22/2024 14:14:59 Chronic obstructive pulmonary disease 84401405 J43.8 stableCont inue Advair 250/50 BID,contin ue Combivent Respimat 1 puff TIDcontinu e albuterol HFA 1 puff q 4 hrs prnMonitor resp. status. 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 mood has been stableCont inue mirtazapin e 15 mg qhspsych prn Gastroesop hageal reflux disease without esophagitis 247131870 K21.9 Continue famotidine 20 mg qhsMonitor for sxs Hypothyroidism 54323428 E03.8 Continue levothyrox ine 75 mcg qdmonitor labs prn Chronic pain 80280751 G8 9.29 As above.Also gets lidocaine patch to right knee daily.Elsy tor Vitamin deficiency 31689 002 E56.9 continue pyridoxine 100 mg daily ,thiamine 100 mg daily ,MVI daily Pain of knee region 1003 794806 M25.569 stable.lid oderm patch right kneediclof enac gel bidtylenol 650 mg q6hr prn [id number] [facility] KAREN SCHWARZE [address] [place] [address] BRIAN VILLAGOMEZ [address] 10/12/2024 10:37:58 10/13/2024 13:55:23 COVID-19 [id number] U07.1 we discussed antiviral, she is not interested ,s she reports that she is feeling better todaywill add prn robitussin and oxygen as wellcontin ue supportive therapy( tylenol, oxygen, robitussin ordered.)i ncrease fluids encouraged discussed with nursing, update provider with changes. [id number] [facility] [address] [place] [address] BRIAN VILLAGOMEZ [address] 01/10/2025 10:55:53 01/14/2025 16:09:23 Chronic obstructive pulmonary disease 42902020 J43.8 stableCont inue Advair 250/50 BID,contin ue Combivent Respimat 1 puff TIDcontinu e albuterol HFA 1 puff q 4 hrs prnMonitor resp. status. Mixed anxi ety and depressive disorder 466650510 F41.8 stableCont inue mirtazapin e 15 mg qhspsych prn Gastroesop hageal reflux disease without esophagitis 829229978 K21.9 stable/Con tinue famotidine 20 mg qhsMonitor for sxs Hypothyroidism 26788912 E03.8 Continue levothyrox ine 75 mcg qdmonitor labs prn Chronic pain 21920009 G8 9.29 stableAlso gets lidocaine patch to right knee daily.Elsy tor Vitamin deficiency 23119 002 E56.9 continue pyridoxine 100 mg daily ,thiamine 100 mg daily ,MVI daily Pain of knee region 1003 085313 M25.569 stable.lid oderm patch right kneediclof enac [...] Member ID Guarantor Name 06/03/2024 2 [place] Brittanie R Guiel [id number] Brittanie Guiel 06/03/2024 1 [place] [employer] Brittanie R Guiel [id number] Brittanie Guiel 07/23/2024 2 [place] Brittanie R Guiel [id number] Brittanie Guiel 07/23/2024 1 [place] [employer] Brittanie R Guiel [id number] Brittanie Guiel 09/14/2024 2 [place] Brittanie R Guiel [id number] Brittanie Guiel 09/14/2024 1 [place] [employer] Brittanie R Guiel [id number] Brittanie Guiel 10/12/2024 2 [place] Brittanie R Guiel [id number] Brittanie Guiel 10/12/2024 1 [place] [employer] Brittanie R Guiel [id number] Brittanie Guiel 01/10/2025 2 [place] Brittanie R Guiel [id number] Brittanie Guiel 01/10/2025 1 [place] [employer] [place] Brittanie R Guiel [id number] Brittanie Guiel Notes Date Note Type Note Provider Name and Address Organization Details Recorded Time 06/03/2024 text/html This is an 83 yo woman, LT resident with a past medical history that includes Tb, hx of ovarian CA-s/p DYLLAN & BSO, COPD, and depression/anxiety . Seen for routine rounding.She continue to stable without complaints. continues to do well, recent treated for a rash with resolution. She is independent with adls and calls for assistance as needed. She participates in recreational activities daily. [facility] [address] [facility], [address], [place], [address], [facility] 06/03/2024 17:52:32 07/23/2024 text/html This is an 83 yo woman, LTC resident with a past medical history that includes Tb, hx of ovarian CA-s/p DYLLAN & BSO, COPD, and depression/anxiety . Seen for routine rounding. She us stable at her baseline in NAD. There are no acute concerns. [facility] [address] [facility], [address], [place], [address], [facility] 07/23/2024 13:36:45 09/14/2024 text/html This is an 83 yo woman, LTC resident with a past medical history that includes Tb, hx of ovarian CA-s/p DYLLAN & BSO, COPD, and depression/anxiety . Seen for routine rounding. She is stable at her baseline in NAD. There are no acute concerns. She is eating and drinking ok, no concerns with elimination. [facility] [address] [facility], [address], [place], [address], [facility] 09/18/2024 18:11:40 10/12/2024 text/html This is an [...] covid. reportable sx reviewed. [facility] [address] [facility], [address], [place], [address], [facility] 10/12/2024 15:53:56 01/10/2025 text/html This is an [...] is no acute concerns. [facility] [address] [facility], [address], [place], [address], [facility] - [employer] 01/11/2025 10:18:20 OBGyn Episode No OBEpisode recorded.
--- OUTSIDE RECORDS SUMMARY | 2025-02-22 06:21 | XMS_ITS | Clinical Summary ---
Author Organization [facility] Address [id number] [place] [address] Care Team Providers Care Diabetes Trainer Name Role Phone Alejandra Mo MD Primary Care Provider [phone] Surgical History Surgery Date Site/Laterality Comments ANKLE SURGERY PROCEDURE: HISTORICAL ANKLE SURGERY OTHER SURGICAL HISTORY PROCEDURE: MT TOTAL ABDOMINAL HYSTERECT W/WO RMVL TUBE OVARY [...] - 2023-2 5 season) 2024 Influenza Vaccine (Season Ended) 2025 HIB Vaccines Aged Out No longer eligi [...] age to complete this topic Meningococcal B Vaccine Aged Out No l onger eligible based on patient's age to complete this topic RSV Immunization Patients Un kathleen 20 months Aged Out No longer eligible b ased on patient's age to complete this topic Varicella Vaccines Aged Out No longer eligible based on patient's age to complete this topic Advance Directives Documents on File Type Date Recorded 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
--- OUTSIDE RECORDS SUMMARY | 2025-02-22 06:21 | XMS_ITS | Clinical Summary ---
Author Organization [facility] Address [facility] [place] [address] Care Team Providers Care Hatchery Supervisor Name Role Phone Alejandra Mo MD Primary Care Provider [phone] Allergies No known active allergies Medications Medication [...] PCV) 2006 FALL RISK ASSESSMENT 01/26/2022 01/26/2021 BMI CHECK/ADVISE 10/14/2024 INFLUENZA (Season Ended) 2025 CHOLESTEROL SCREENING 01/26/2026 01/26/2021 Care Teams Hatchery Supervisor Relationship Specialty Start Date End Date Alejandra Mo MD PCP - General Internal Medicine 12/21/20
--- OUTSIDE RECORDS SUMMARY | 2025-02-22 06:21 | XMS_ITS | Encounter Summary ---
Author Organization [facility] Address [address] [place] [address] Care Team Providers Care Generation Technician Name Role Phone Marco Antonio Silva MD Primary Care Provider Unava ilable Alejandra Mo MD Primary Care Provider [phone] Encounter Details Date Type Department Care Team Description 07/19/2019 Hospital Medical Records [address] [place] [address] Ivan Lizarraga MD [address] [place] [phone] Social History Tobacco Use Types Packs/Day [...] on filedocumented in this encounter Care Teams Generation Technician Relationship Specialty Start Date End Date Marco Antonio Silva MD PCP - General Internal Medicine 07/17/19 12/20/20 Alejandra Mo MD PCP - General Internal Medicine 12/21/20 documented as of this encounter
--- OUTSIDE RECORDS SUMMARY | 2025-02-22 06:21 | XMS_ITS | Encounter Summary ---
Author Organization [facility] Address [address] [place] [address] Care Team Providers Care Home Improvement Installer Name Role Phone Marco Antonio Silva MD Primary Care Provider Unava wyable Alejandra Mo MD Primary Care Provider [phone] Encounter Details Date Type Department Care Team Description 08/06/2019 Orders Only Medical Records [address] [place] [address] Ricky Major MD [address] [place] [phone] Social History Tobacco Use Types Packs/Day Years Used Date Smoking Tobacco: Never Assessed Sex Assigned at Date Recorded Not on file documented as of this encounter Plan of Treatment Not on file documented as of this encounter Procedures Procedure Name Priority Date/Time Associated Diagnosis Comments OUTSIDE PLAIN FILM Routine 08/06/2019 documented in this encounter Results * OUTSIDE PLAIN FILM (08/06/2019) Ricky Major MD RADIOLOGY documented in this encounter Visit Diagnoses Not on filedocumented in this encounter Care Teams Home Improvement Installer Relationship Specialty Start Date End Date Marco Antonio Silva MD PCP - General Internal Medicine 07/17/19 12/20/20 Alejandra Mo MD PCP - General Internal Medicine 12/21/20 documented as of this encounter
[2025-02-22 06:50] LABS: Basophils Absolute Auto 0.1 X10*3/uL (0.0-0.2); Basophils Percent Auto 1.1 % (0-2); Eosinophils Absolute Auto 0.1 X10*3/uL (0.0-0.4); Eosinophils Percent Auto 2.4 % (0-4); Hematocrit 42.8 % (37.0-47.0); Hemoglobin 14.4 g/dl (12.0-16.0); Imm Gran Abs Auto 0.01 X10*3/uL (0.00-0.03); Imm Gran Pct Auto 0.2 % (0.0-0.4); Lymphocytes Absolute Auto 2.1 X10*3/uL (1.2-4.9); Mean Corpuscular HGB Conc 33.6 g/dl (31.0-35.0); Mean Corpuscular Hemoglobin 31.6 pg (27.0-33.0); Mean Corpuscular Volume 94.1 fL (80.0-98.0); Mean Platelet Volume 9.8 fL (9.4-12.3); Monocytes Absolute Auto 0.5 X10*3/uL (0.1-1.2); Monocytes Percent Auto 8.8 % (2-11); Neutrophils Absolute Auto 2.6 x10*3/uL (2.0-8.3); Neutrophils Percent Auto 48.5 % (45-73); Platelet Count 203 X10*3/uL (160-400); Red Blood Count 4.55 X10*6/uL (4.20-5.50); Red Cell Distribution Width 14.2 % (11.0-16.0); White Blood Count 5.4 X10*3/uL (4.8-10.8)
[2025-02-22 07:05] LABS: Anion Gap 13 (12-20); Blood Urea Nitrogen 23 mg/dL (9-16); Calcium 9.2 mg/dL (8.4-10.2); Carbon Dioxide 24 mmol/L (22-29); Chloride 107 mmol/L (96-108); Estimated Glomerular Filt Rate > 60; Glucose Random 80 mg/dL (60-115); Sodium 140 mmol/L (135-145)
== END 2025-02-22 06:16 | disposition home or self-care (01) ==
LOC: HO.MMNH3L 06:15
PROVIDERS: Visit Provider Family Medicine
DX: A15.0 Tuberculosis of lung (principal); J96.01 Acute respiratory failure with hypoxia
CPT/HCPCS: 36415; 80048; 85025

== ENCOUNTER 2025-03-15 05:47 | Outpatient (REF) | payer MEDICARE, SELFPAY ==
[2025-03-15 05:44] LABS: MANUAL DIFF FLAG NO
--- OUTSIDE RECORDS SUMMARY | 2025-03-15 05:50 | XMS_ITS | Data Portability ---
Author Organization [facility], Main Office Address [address] [facility], [address] [place] [address] Care Team Providers Care Account Associate Name Role Phone KAREN CONTEH 3RD FLOOR [...] Recorded Time Chronic obstructiv e pulmonary disease 33365068 Active 2019 Kianna Alvarez MD [address] [facility], [facility], [place], [address] , [facility] 0 22:40:16 Hypothyroi dism 42272987 Active 2019 Toma Alvarado MD [address] [facility], [address], [place], [address] , [facility] 0 09:30:52 SARS-CoV-2 Active 2019 SON LEIJA NP [address] [facility], [address], [place], [address] , [facility] 0 11:35:17 Pain in right knee Active 2020 SON LEIJA NP [address] [facility], [address], [place], [address] , [facility] 1 13:53:06 Gastroesop hageal reflux disease without esophagiti s 390134768 Active 2020 SON LEIJA NP [address] [facility], [address], [place], [address] , [facility] 1 12:16:37 Vitamin deficiency 80921882 Active 2020 SON LEIJA NP [address] [facility], [address], [place], [address] , [facility] 1 12:17:06 Pain of left knee region [id number] 09 Active 2022 SON LEIJA NP [address] [facility], [address], [place], [address] , [facility] 3 13:05:00 Chronic pain 06068951 Active 2023 Kianna Alvarez MD [address] [facility], [address], [place], [address] , [facility] 4 11:01:01 Tuberculos is 94971944 Active 2018 Hina gonzalez, [facility] 9 10:15:54 Healthcare associated bacterial pneumonia 245314754 Active 2018 Hina gonzalez, [facility] 9 10:16:18 Diagnostic pneumomedi astinum Active 2018 Hina gonzalez, [facility] 9 10:16:34 Severe protein-ca yobani malnutriti on (Bell: less than 60 percent of standard weight) 045300371 Active 2018 Hina goznalez, [facility] 9 10:17:04 Mediastina l emphysema 27470126 Active 2018 Hina gonzalez, [facility] 9 10:17:42 History of malignant neoplasm of ovary 891908369 Active 2018 Hina gonzalez, [facility] 9 10:18:05 Mixed anxiety and depressive disorder 525684317 Active 2018 Nichelle gonzalez, [facility] 9 10:56:15 Problem Notes None recorded. Medical [...] % 94 % 118 mm[Hg] 67 mm[Hg] THOMAS CHEP [address] [facility], [address], [place], [address], [facility] 5 10:17:43 Date Recorded Body height Oxygen saturation Oxygen saturation in Arterial blood by Pulse oximetry Body temperature Respiratory rate Heart rate Systolic blood pressure Diastolic blood pressure Provider Name and Address Organization Details Last Updated DateTime 4 149.86 cm 95 % 95 % 97.5 [degF] 20 /min 71 /min 120 mm[Hg] 75 mm[Hg] THOMAS CHEP [address] [facility], [address], [place], [address], [facility] 4 14:03:38 Date Recorded Body height Heart rate Respiratory rate Body temperature Oxygen saturation Oxygen saturation in Arterial blood by Pulse oximetry Systolic blood pressure Diastolic blood pressure Provider Name and Address Organization Details Last Updated DateTime 4 149.86 cm 72 /min 18 /min 97.4 [degF] 96 % 96 % 134 mm[Hg] 76 mm[Hg] THOMAS CHEP [address] , [address], [place], [address], [facility] 4 13:34:43 Date Recorded Body height Heart rate Respiratory rate Body temperature Oxygen saturation Oxygen saturation in Arterial blood by Pulse oximetry Systolic blood pressure Diastolic blood pressure Provider Name and Address Organization Details Last Updated DateTime 4 149.86 cm 75 /min 18 /min 98 [degF] 98 % 98 % 131 mm[Hg] 69 mm[Hg] THOMAS CHEP [address] [facility], [address], [place], [address], [facility] 4 18:09:49 Date Recorded Body height Heart rate Respiratory rate Body temperature Oxygen saturation Oxygen saturation in Arterial blood by Pulse oximetry Systolic blood pressure Diastolic blood pressure Provider Name and Address Organization Details Last Updated DateTime 4 149.86 cm 68 /min 18 /min 97.1 [degF] 96 % 96 % 134 mm[Hg] 70 mm[Hg] CHASE CHE [address] [facility], [address], [place], [address], [facility] 4 15:34:38 Social History Question Answer Notes LastModified by Organizat ion Details LastModified Time Tobacco Smoking Status Former Smoker smoked 1.5 ppd, quit many yrs ago Kianna Alvarez MD [address] [facility], [address], [place], [address], [facility] 08/16/2023 17:37:37 Do You Have An Advance Directive? Yes DNI Otherwise Full Code [id number] Information not available 08/09/2020 How Much Tobacco Do You Chew? None [id number] Information not available 08/09/2020 What Is Your Code Status? DNI Information not available 03/28/2023 Where Do You Live? [facility] Information not available 03/28/2023 Legal Guardian? No Informati on not available 03/28/2023 Do You Have A Medical Power Of Emergency Veterinary Technician? Yes Not Invoked Information not available 03/28/2023 [...] Many Years Have You Smoked Tobacco? 60 [id number] Information not available 08/09/2020 Sex: Unknown Functional Status Question Answer Note LastModified by Organizat ion Details LastModified Time Do you use any illicit or recreational drugs? No Information not available 03/28/2023 Do you or have you ever used any other forms of tobacco or nicotine? No Information not available 03/28/2023 What is your level of alcohol consumption? None [id number] Information not available 08/09/2020 Do you or have you ever used smokeless tobacco? Never used smokeless tobacco [id number] Information not available 08/09/2020 Do you or have you ever used e-cigarettes or vape? Never used electronic cigarettes [id number] Information not available 08/09/2020 Mental Status None recorded. Family History Relationship Description Onset Age of this Age Resolved Age Notes LastModified by Organization Details LastModified Time Father No current problems or disability [facility] Not available 08/21 09:44:07 Mother No current problems or disability [facility] Not available 08/21 09:44:07 Notes:N/C Medical History No medical history recorded. Gynecological HistoryNo gynecological history recorded. Obstetrics History GPAL:G 0 P 0 0 0 0 Immunizations Vaccine Type Date Status Note Provider Nam e and Address Organization Details Recorded Time Influenza, adjuvanted, quadrivalent, PF 08/27/2022 completed Gabriela [facility] 11/01/2023 11:51:08 Influenza, adjuvanted, quadrivalent, PF 05/20/2023 completed Gabriela gonzalez [facility] 11/01/2023 11:51:23 Past Encounters Encounter ID Performer Location Encounter Start Date Encounter Closed Date Diagnosis/Indication Diagnosis SNOMED-CT Code Diagnosis ICD10 Code Diagnosis Note [id number] ROMY PINEDA [address] [facility] [place] [place] [address] 08/21/2019 09:44:29 09/01/2019 10:32:18 Tuberculosis 33039470 A18.89 continue Isoniazid, Rifampin, Pyrazinami de, Pyridoxine f/u at [facility] TB clinic on 08/25. Healthcare associated bacterial pneumonia 070217720 Y95 completed abx txcontinue brovana, pulmicort, duonebs scheduled and prn albuterolp ulmo and RT to follow here. Severe protein-calorie malnutrition (Bell: less than 60 percent of standard weight) 730939518 E43 [employer] meghann acosta remeron- started 08/10. Mediastinal emphysema 16 227156 J98.2 pneumomedi astinum related to infection/ bronchosco pyno interventi on neededif resp sx develop will repeat cxr/CT chest Physical deconditioning 9635076820 9102 R68.89 PT/OT eval. [id number] MD KAREN Cooper [address] [place] [address] 08/24/2019 08:02:58 09/01/2019 10:59:44 Tuberculosis [id number] A15.0 see HPIfollchristian d by ID of note in hospital case discussed with dept of public health ID and determined it was safe to take patient off airborne precaution s as she had been treated for > 14 daysf/u [facility] [place] [facility] current Ab courseadd probioticu pdate ID with change in presentati onmonitor respirator y function Healthcare associated bacterial pneumonia 790616864 Y95 see HPIcomplet ed vanco and zosynsee above Asthenia 40175031 R53.1 PT OT eval and treatmonit or fall risk Severe protein-calorie malnutrition (Bell: less than 60 percent of standard weight) 624644370 E41 carrying dx from hospitaldi etary evalmonito r weights and PO intake History of malignant neoplasm of ovary 032885359 Z85.43 added to PMH [id number] KEILA Sepulveda [address] [place] [phone] 09/01/2019 07:19:48 09/04/2019 15:23:56 Tuberculosis [id number] A15.0 see HPIfollowe d by ID of note in hospital case discussed with dept of public health ID and determined it was safe to take patient off airborne precaution s as she had been treated for > 14 daysf/u with TB clinic todayconti nue current Ab courseprob ioticupdat e ID with change in presentati onmonitor respirator y function Healthcare associated bacterial pneumonia 656247213 Y95 see HPIcomplet ed vanco and zosynsee above Asthenia 62313884 R53.1 PT OT eval and treatmonit or fall risk Severe protein-calorie malnutrition (Bell: less than 60 percent of standard weight) 532357312 E41 carrying dx from hospitaldi etary eval pt has gained 2 lbs in the past week according to weekly weight data, has good reported appetite. monitor weights [place] intake [id number] Nichelle Dooley NP [address] [place] [address] 09/08/2019 07:58:08 09/17/2019 14:56:26 Tuberculosis [id number] A15.0 see HPIfojaida garibay by ID of [...] respirator y function Healthcare associated bacterial pneumonia 804358713 Y95 see HPIcomplet ed vanco and zosynsee above Asthenia 67084737 R53.1 PT OT eval and treatmonit or fall risk Severe protein-calorie malnutrition (Bell: less than 60 percent of standard weight) 774856785 E41 carrying dx from hospitaldi etary eval pt has good reported appetite. [place] weights [place] intake [id number] Nichelle Dooley NP [address] [place] [address] 09/15/2019 07:35:21 09/23/2019 11:38:11 Tuberculosis 83262023 A15.0 see HPIcorina garibay by TB clinic [...] respirator y function Healthcare associated bacterial pneumonia 031808297 Y95 see HPIcomplet ed vanco and zosynsee above Asthenia 24444929 R53.1 PT OT eval and treatmonit or fall risk Severe protein-calorie malnutrition (Bell: less than 60 percent of standard weight) 686275365 E41 carrying dx from hospitaldi etary eval- pt now on ensures pt has good reported appetite. monitor weights [place] PO intake [id number] Nichelle Dooley NP KAREN WERO [address] [place] [address] 09/22/2019 09:39:42 09/29/2019 09:21:51 Tuberculosis [id number] A15.0 see HPIfollchristian d by TB clinic [...] O2 orders monitor respirator y function Asthenia 39317382 R53.1 Pt has been DCd from PT- she has reached her baseline, only walking about 30 ft with walker, varies with transfers. monitor fall risk Severe protein-calorie malnutrition (Bell: less than 60 percent of standard weight) 738376167 E41 carrying dx from hospital has lost about 9lbs in the past month pt on ensures tid will increase mirtazapin e to 15mg qd today monitor ?weight loss due to ovarian cancer History of malignant neoplasm of ovary 428955356 Z85.43 added to PMH Per family the pt had one day of treatment for this and then never followed up with this- she refused care. Mixed anxi ety and depressive disorder 334059923 F41.8 will order psych eval today monitor mood [id number] KEILA Sepulveda WERO [address] [place] [address] 09/28/2019 07:22:29 10/01/2019 14:27:45 Tuberculosis 33993460 A15.0 see HPI stable. followed by TB [...] O2 orders monitor respirator y function Asthenia 15506273 R53.1 Pt has been DCd from PT- she has reached her baseline, only walking about 30 ft with walker, varies with transfers. monitor fall risk Severe protein-calorie malnutrition (Bell: less than 60 percent of standard weight) 206664379 E41 carrying dx from hospital has lost over 10lbs since her admission, however she appears to have leveled out. pt on ensures tid mirtazapin e increased to 15mg qd last week continue to monitor ?weight loss due to ovarian cancer History of malignant neoplasm of ovary 628709457 Z85.43 added to PMH Per family the pt had one day of treatment for this and then never followed up with this- she refused care. Mixed anxi ety and depressive disorder 151381406 F41.8 awaiting psych eval monitor mood [id number] KEILA Sepulveda [address] [place] [address] 10/08/2019 07:24:07 10/12/2019 16:27:09 Tuberculosis 40161369 A15.0 see HPI stable. followed by TB [...] less than 60 percent of standard weight) 806179926 E41 carrying dx from hospital has lost over 7lbs since her admission, appears to be stable at this time.pt on ensures tid mirtazapin e 15mg qd continue to monitor History of malignant neoplasm of ovary 623611821 Z85.43 added to PMH Per family the pt had one day of treatment for this and then never followed up with this- she refused care. Mixed anxi ety and depressive disorder 115867065 F41.8 pt recently seen by [facility], no consult notes in chart yet monitor mood [id number] KEILA Sepulveda [address] [place] [address] 10/12/2019 08:06:04 10/16/2019 13:50:57 Tuberculosis 51162463 A15.0 see HPI stable. followed by TB [...] less than 60 percent of standard weight) 159171681 E41 carrying dx from hospital pt on ensures tid mirtazapin e 15mg qd pt had initially lost weight, now improving continue to monitor Mixed anxi ety and depressive disorder 168274982 F41.8 pt recently seen by [facility], awaiting consult notes. monitor mood History of malignant neoplasm of ovary 606685266 Z85.43 added to PMH Per family the pt had one day of treatment for this and then never followed up with this- she refused care. [id number] KEILA Sepulveda WERO [address] [place] [address] rd [place] [address] 10/19/2019 08:10:14 10/22/2019 14:29:13 Tuberculosis 25146975 A15.0 see HPI stable. followed by TB [...] less than 60 percent of standard weight) 121141049 E41 carrying dx from hospital pt on ensures tid mirtazapin e 15mg qd pt had initially lost weight, now improving continue to monitor Mixed anxi ety and depressive disorder 800738227 F41.8 mirtazapin e 15mg qd monitor mood psych following History of malignant neoplasm of ovary 232419090 Z85.43 added to PMH Per family the pt had one day of treatment for this and then never followed up with this- she refused care. [id number] MD KAREN Cooper [facility] [address] [place] [address] 11/18/2019 15:07:44 11/22/2019 15:31:49 Tuberculosis 73688838 A15.0 followed by ID f/u with TB clinic [place] current Ab courseupda te ID with change in presentati onmonitor respirator y functioncu rrently stable at baseline Nausea and vomiting 1692 1999 R11.2 appears secondary to medication administra evelyn have patient take zofran priormonit or for sx control [id number] Nichelle Dooley NP [facility] [address] [place] [address] 12/01/2019 12:14:48 12/11/2019 14:40:43 Tuberculosis 40385060 A15.0 followed by ID seen by tb [...] less than 60 percent of standard weight) 484090655 E41 carrying dx from hospital pt on ensures tid mirtazapin e 15mg qd pt continues to have weight loss recent DC of abx as above may be helpful, as these were likely causing her some nausea continue to monitor weights bi-weekly for 4 weeks Mixed anxi ety and depressive disorder 222057194 F41.8 mirtazapin e 15mg qd monitor mood psych following History of malignant neoplasm of ovary 279254057 Z85.43 added to PMH Per family the pt had one day of treatment for this and then never followed up with this- she refused care. [id number] KEILA Sepulveda WERO [address] [place] [phone] 12/29/2019 12:37:57 01/01/2020 15:52:34 Cough 99039817 R05 With associated chills, fatigue, body aches. Will check for flu and resp viral panel, cbc/cmp of note there is a resident on the floor +for flu A encourage fluids supportive care continue to monitor [id number] [facility]hel[facility] [address] [place] [address] 01/15/2020 14:07:52 01/21/2020 13:07:58 Tuberculosis 69542865 A15.0 followed by ID continues on multiple [...] on site prn currently stable at baseline [id number] MD KAREN Pope WERO [address] [place] [phone] 01/22/2020 17:32:59 01/28/2020 18:46:52 Tuberculosis 64635485 A15.0 She is on ethambutol 800 mg [...] less than 60 percent of standard weight) 668968102 E41 She has lost 20# since here. BMI still in nl. range. Was given this dx in the hospital. Continue ensure TID and mirtazapin e 15 mg qd Continue to monitor weights Mixed anxi ety and depressive disorder 167250239 F41.8 Mood good today. Continue mirtazapin e 15 mg qd. monitor mood Follow with NEG as able. History of malignant neoplasm of ovary 451879566 Z85.43 Hx of. Had DYLLAN/BSO Per family the pt had one day of treatment for this and then never followed up with this- she refused care. Chronic ob structive pulmonary disease 60890043 J43.8 Likely with underlying COPD. Continue meds as above. Will need full PFTs when able. [id number] KEILA BRASHER [address] [place] [address] 03/18/2020 09:19:47 03/22/2020 10:40:26 Chronic obstructive pulmonary disease 92882639 J44.9 monitor for any sob, O2 if needed Mixed anxi ety and depressive disorder 399160184 F41.8 Continue mirtazapin e 15 mg qd. monitor mood Follow with NEG as able. Severe protein-calorie malnutrition (Bell: less than 60 percent of standard weight) 567151104 E43 Continue ensure TID and mirtazapin e 15 mg qd Continue to monitor weights Tuberculosis 91120379 A1 8.89 continue ethambutol 800 mg qd, isoniazid 300 mg qd and pyrazinami de 1000 mg qd Nebs all transition ed to inhalers, now on combivent QID, symbicort 80/4.5 two puffs BID and proair with spacer q 4h prn. Continue O2 prn to maintain sats >90% Monitor respirator y function F/U with resp therapist and pulmonary as able. [id number] KEILA BRASHER [address] [place] [address] 04/11/2020 10:32:37 04/19/2020 15:35:04 Mixed anxiety and depressive disorder 068741066 F41.8 Continue mirtazapin e 15 mg qd. monitor mood Follow with NEG as able. [id number] Toma Alvarado MD [facility] [address] [place] [address] 05/20/2020 06:57:19 05/24/2020 10:36:19 Chronic obstructive pulmonary disease 35863684 J44.9 Symbicort 4.5-80: 2 puffs bidCombive nt respimat 20-100: one puff tidalbuter ol HFA 1 puff q4h prn will monitor History of malignant neoplasm of ovary 560840847 Z85.43 s/p DYLLNA, SBO; has refused further treatment Mixed anxi ety and depressive disorder 319428239 F41.8 mirtazapin e 15 mg at will monitor Tuberculosis 14433871 A1 8.89 fu [facility] clinic Hypothyroidism 68440174 E03.8 levothyrox ine 75 mcg dailywill monitor [id number] SON LEIJA NP [facility] [address] [place] [address] 07/13/2020 10:24:49 07/15/2020 14:24:57 Chronic obstructive pulmonary disease 22372834 J44.9 monitor for any sob, O2 if needed symbicort 80/4.5 q12 hr combivent 20/100 tid flonase daily Healthcare associated bacterial pneumonia 241057703 J15.9 recovered Hypothyroidism 37594473 E03.9 levothyrox ine 75 mcg daily will monitor Mixed anxi ety and depressive disorder 843218746 F41.8 mirtazapin e 15 mg qd. monitor mood Follow with NEG as able. Tuberculosis 93659739 A1 8.89 combivent tid, symbicort 80/4.5 two puffs BID proair with spacer q 4h prn. Continue O2 prn to maintain sats >90% Monitor respirator y function F/U with resp therapist and pulmonary as able. Severe protein-calorie malnutrition (Bell: less than 60 percent of standard weight) 818598135 E43 ensure TID and mirtazapin e 15 mg qd thiamine 100 mg daily B6 100 daily Continue to monitor weights [id number] SON LEIJA NP [facility] [address] [address] 08/23/2020 11:08:00 08/25/2020 13:34:50 Chronic obstructive pulmonary disease 01989864 J44.9 monitor for any sob, O2 if needed symbicort 80/4.5 q12 hr combivent 20/100 tid flonase daily SARS-CoV-2 582004693 U07 .1 encourage po intake O2 prn consider IVF if she becomes anorexic [id number] SON LEIJA NP [address] [address] 08/29/2020 12:18:09 08/31/2020 15:39:28 Chronic obstructive pulmonary disease 69757560 J44.9 monitor for any sob, O2 if needed symbicort 80/4.5 q12 hr combivent 20/100 tid flonase daily loratadine 10mg daily Healthcare associated bacterial pneumonia 926274119 J15.9 recovered History of malignant neoplasm of ovary 810273372 Z85.43 DYLLAN SBO no further treatment Hypothyroidism 83399692 E03.9 levothyrox ine 75 mcg daily will monitor Mediastinal emphysema 16 050490 J98.2 2019 pneumomedi astinum related to infection/ bronchosco py no interventi on needed if resp sx develop will repeat cxr/CT chest Mixed anxi ety and depressive disorder 315054557 F41.8 mirtazapin e 15 mg qd. monitor mood Follow with NEG as able. SARS-CoV-2 226888837 U07 .1 encourage po intake O2 prn consider IVF if she becomes anorexic Severe protein-calorie malnutrition (Bell: less than 60 percent of standard weight) 964235782 E43 ensure TID and mirtazapin e 15 mg qd thiamine 100 mg daily B6 100 daily Continue to monitor weights Tuberculosis 10537750 A1 8.89 combivent tid, symbicort 80/4.5 two puffs BID proair with spacer q 4h prn. Continue O2 prn to maintain sats >90% Monitor respirator y function F/U with resp therapist and pulmonary as able. [id number] KEILA BRASHER [address] [address] 08/30/2020 08:12:16 09/02/2020 10:34:19 SARS-CoV-2 497155932 U07.1 encourage po intake O2 prn consider IVF if she becomes anorexic [id number] SON LEIJA NP [address] [address] 08/31/2020 11:03:06 09/02/2020 11:07:24 SARS-CoV-2 959060102 U07.1 08/16, 08/23 positive encourage po intake O2 prn consider IVF if she becomes anorexic [id number] SON LEIJA NP [address] [address] 09/01/2020 09:30:51 09/06/2020 10:25:57 SARS-CoV-2 015097809 U07.1 08/16, 08/23 positive encourage po intake O2 prn consider IVF if she becomes anorexic [id number] SON LEIJA NP [address] [address] 09/02/2020 12:59:16 09/06/2020 10:40:27 SARS-CoV-2 605010667 U07.1 08/16, 08/23 positive, 08/29 negative encourage po intake O2 prn consider IVF if she becomes anorexic [id number] Toma Alvarado MD [address] [address] 09/23/2020 06:10:55 09/27/2020 11:42:12 Chronic obstructive pulmonary disease 61879654 J41.0 Advair 250-50: one puff bidCombive nt Respimat 20-100: one puff tidalbuter ol HFA 1 puff q4h prn will monitor History of malignant neoplasm of ovary 537871051 Z85.43 s/p DYLLAN, SBO; has refused further treatment Hypothyroidism 74740774 E03.8 levothyrox ine 75 mcg dailywill monitor Mixed anxi ety and depressive disorder 388872427 F41.8 mirtazapin e 15 mg at hswill monitor SARS-CoV-2 829544550 U07 .1 recoveredw ill continue to monitor [id number] KEILA BRASHER [address] [facility] [place] [address] 11/15/2020 13:47:46 11/16/2020 14:55:19 Chronic obstructive pulmonary disease 02276240 J44.9 monitor for any sob, O2 if needed advair 250/50 daily combivent 20/100 tid flonase daily albuterol prn loratadine 10mg daily Healthcare associated bacterial pneumonia 130208269 J15.9 recovered History of malignant neoplasm of ovary 831899924 Z85.43 DYLLAN SBO no further treatment Hypothyroidism 36009964 E03.9 levothyrox ine 75 mcg daily will monitor Mediastinal emphysema 16 293945 J98.2 2019 pneumomedi astinum related to infection/ bronchosco py no interventi on needed if resp sx develop will repeat cxr/CT chest Mixed anxi ety and depressive disorder 591238989 F41.8 mirtazapin e 15 mg qd. monitor mood Follow with NEG as able. SARS-CoV-2 921832346 U07 .1 recovered 08/16, 08/23 positive, 08/29 negative encourage po intake O2 prn consider IVF if she becomes anorexic Severe protein-calorie malnutrition (Bell: less than 60 percent of standard weight) 660449014 E43 ensure TID and mirtazapin e 15 mg qd thiamine 100 mg daily B6 100 daily Continue to monitor weights Tuberculosis 04791162 A1 8.89 combivent tid, advair daily proair with spacer q 4h prn. Continue O2 prn to maintain sats >90% Monitor respirator y function F/U with resp therapist and pulmonary as able. Pain in right knee 39776 62314 94258 M25.561 lidoderm patch right kneediclof enac gel bidtylenol 650 mg q6hr prn [id number] MD KAREN Morales WERO [address] [place], [place] [address] [phone] 01/06/2021 07:13:09 01/10/2021 10:35:09 Chronic obstructive pulmonary disease 95370141 J41.0 Advair 250-50: one puff bidCombive nt Respimat 20-100: one puff tidalbuter ol HFA 1 puff q4h prn will monitor History of malignant neoplasm of ovary 600311722 Z85.43 s/p DYLLAN, SBO; has refused further treatment Hypothyroidism 40575781 E03.8 levothyrox ine 75 mcg dailywill monitor Mixed anxi ety and depressive disorder 264789603 F41.8 mirtazapin e 15 mg at hswill monitor SARS-CoV-2 663409963 U07 .1 diagnosed 09/02 recovered will continue to monitor [id number] SON LEIJA NP [address] [address] 03/01/2021 08:04:33 03/03/2021 13:38:48 Chronic obstructive pulmonary disease 27707456 J44.9 monitor for any sob, O2 if needed advair 250/50 bid combivent 20/100 tid flonase daily albuterol prn loratadine 10mg daily History of malignant neoplasm of ovary 521177073 Z85.43 DYLLAN SBO no further treatment Hypothyroidism 37773795 E03.9 levothyrox ine 75 mcg daily will monitor 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 monitor mood Follow with NEG as able. Pain in right knee 21254 35941 88768 M25.561 lidoderm patch right kneediclof enac gel bidtylenol 650 mg q6hr prn Severe protein-calorie malnutrition (Bell: less than 60 percent of standard weight) 231201692 E43 ensure TID mirtazapin e 15 mg qd thiamine 100 mg daily B6 100 daily Continue to monitor weights Tuberculosis 09004635 A1 8.89 combivent tid, advair 250/50 bid proair with spacer q 4h prn. Continue O2 prn to maintain sats >90% Monitor respirator y function F/U with resp therapist and pulmonary as able. [id number] MD KAREN Morales [address] [place] [phone] 04/21/2021 06:57:11 05/02/2021 14:03:31 Chronic obstructive pulmonary disease 16954755 J41.0 Advair 250-50: one puff bidCombive nt Respimat 20-100: one puff tidalbuter ol HFA 1 puff q4h prnwill monitor History of malignant neoplasm of ovary 760829240 Z85.43 s/p DYLLAN, SBOhas refused further treatment Hypothyroidism 46151531 E03.8 levothyrox ine 75 mcg dailywill monitor Mixed anxi ety and depressive disorder 318329868 F41.8 mirtazapin e 15 mg at hswill monitor SARS-CoV-2 957018238 U07 .1 diagnosed 09/02 recovered will continue to monitor Gastroesop hageal reflux disease without esophagitis 984764992 K21.9 famotidine 20 mg at hswill monitor Acute conjunctivitis 537 02068 H10.011 improvingc omplete course of polytrim solutionwi ll monitor [id number] KEILA BRASHER [address] [place] [phone] 06/14/2021 11:54:10 06/16/2021 10:06:14 Chronic obstructive pulmonary disease 28575926 J41.0 monitor for any sob, O2 if needed advair 250/50 bid combivent 20/100 tid flonase daily albuterol prn loratadine 10mg daily Hypothyroidism 49587119 E03.8 levothyrox ine 75 mcg daily will monitor Mixed anxi ety and depressive disorder 884245446 F41.8 mirtazapin e 15 mg qd. monitor mood Follow with NEG as able. Pain in right knee 54364 80565 74651 M25.561 lidoderm patch right kneediclof enac gel bidtylenol 650 mg q6hr prn Tuberculosis 61809149 A1 8.89 combivent tid, advair 250/50 bid proair with spacer q 4h prn. O2 prn to maintain sats >90% Monitor respirator y function F/U with resp therapist and pulmonary as able. Gastroesop hageal reflux disease without esophagitis 291039026 K21.9 pepcid 20 mg daily Vitamin deficiency 86145 002 E56.9 mvi dailythiam ine 100 mg dailyB6 daily [id number] MD KAREN Morales [address] [place] [phone] 5 08/23/2021 06:02:03 08/25/2021 11:44:21 Chronic obstructive pulmonary disease 00226846 J41.0 Advair 250-50: one puff bidCombive nt Respimat 20-100: one puff tidalbuter ol HFA 1 puff q4h prnwill monitor Gastroesop hageal reflux disease without esophagitis 675353112 K21.9 famotidine 20 mg at hswill monitor Hypothyroidism 19957671 E03.8 levothyrox ine 75 mcg dailywill monitor History of malignant neoplasm of ovary 203578584 Z85.43 s/p DYLLAN, SBOhas refused further treatment Mixed anxi ety and depressive disorder 054845575 F41.8 mirtazapin e 15 mg at hswill monitor Vitamin deficiency 05784 002 E56.8 pyridoxine 100 mg dailythiam ine 100 mg dailyMVI dailywill monitor Osteoarthritis 519068594 M17.11 APAP 650 mg q6h prndiclofe nac topical gel to right knee prnBengay cream to right knee q8h prnlidocai ne patch 4% to right knee dailywill monitor [id number] KEILA BRASHER [address] [place] [address] [place] [address] 10/19/2021 12:58:57 10/24/2021 11:46:50 Chronic obstructive pulmonary disease 25750149 J41.0 monitor for any sob, O2 if needed advair 250/50 bid combivent 20/100 tid flonase daily albuterol prn loratadine 10mg daily Hypothyroidism 39884689 E03.8 levothyrox ine 75 mcg daily will monitor Mixed anxi ety and depressive disorder 909178335 F41.8 mirtazapin e 15 mg qd. monitor mood Follow with NEG as able. Pain in right knee 99938 27000 49227 M25.561 lidoderm patch right kneediclof enac gel bidtylenol 650 mg q6hr prn Tuberculosis 67026287 A1 8.89 combivent tid, advair 250/50 bid proair with spacer q 4h prn. O2 prn to maintain sats >90% Monitor respirator y function F/U with resp therapist and pulmonary as able. Gastroesop hageal reflux disease without esophagitis 573634507 K21.9 pepcid 20 mg daily Vitamin deficiency 09110 002 E56.9 mvi dailythiam ine 100 mg dailyB6 daily [id number] SON LEIJA NP [address] [address] 11/09/2021 09:05:30 11/15/2021 08:55:12 Chronic obstructive pulmonary disease 79317874 J41.0 monitor for any sob, O2 if needed advair 250/50 bid combivent 20/100 tid flonase daily albuterol prn loratadine 10mg daily Pain in right knee 91578 44940 59608 M25.561 lidoderm patch right kneediclof enac gel bidtylenol 650 mg q6hr prn [id number] SON LEIJA NP [address] [address] 11/10/2021 10:03:11 11/15/2021 10:48:07 SARS-CoV-2 240007492 U07.1 11/08 covid positive, asymptomat icPatient covid positiveco ntinue supportive caremonito r PO intake and need for supplement al [id number] need for adjuvent therapyto ED for acute decompensa tion [id number] SON LEIJA NP [address] [phone] 11/13/2021 12:31:35 11/15/2021 11:47:51 SARS-CoV-2 128866035 U07.1 11/08 covid positive, asymptomat ic-recover ed by Rhonda blakely covid positive continue supportive care monitor PO intake and need for supplement al O2 monitor need for adjuvent therapy to ED for acute decompensa tion [id number] Toma Alvarado MD [address] [address] 5 12/22/2021 07:56:46 12/27/2021 16:02:07 Chronic obstructive pulmonary disease 74047445 J41.0 Advair 250-50: one puff bidCombive nt Respimat 20-100: one puff tidalbuter ol HFA 1 puff q4h prnwill monitor Gastroesop hageal reflux disease without esophagitis 980543441 K21.9 famotidine 20 mg at hswi monitor Hypothyroidism 75180718 E03.8 levothyrox ine 75 mcg dailywill monitor Mixed anxi ety and depressive disorder 195193695 F41.8 mirtazapin e 15 mg at hswi monitor SARS-CoV-2 643129675 U07 .1 tested positive 11/08/21asy mptomatic coursereco shelli will continue to monitor [id number] SON LEIJA NP [address] [address] 01/19/2022 08:44:18 01/23/2022 11:01:49 Chronic obstructive pulmonary disease 89031076 J41.0 monitor for any sob, O2 if needed advair 250/50 bid combivent 20/100 tid flonase daily albuterol prn loratadine 10mg daily Hypothyroidism 00427285 E03.8 levothyrox ine 75 mcg daily will monitor Mixed anxi ety and depressive disorder 055617411 F41.8 mirtazapin e 15 mg qd. monitor mood Follow with NEG as able. Pain in right knee 84608 52814 69518 M25.561 lidoderm patch right kneediclof enac gel bidtylenol 650 mg q6hr prn Tuberculosis 15844260 A1 8.89 combivent tid, advair 250/50 bid proair with spacer q 4h prn. O2 prn to maintain sats >90% Monitor respirator y function F/U with resp therapist and pulmonary as able. Gastroesop hageal reflux disease without esophagitis 178942627 K21.9 pepcid 20 mg daily Vitamin deficiency 22768 002 E56.9 mvi dailythiam ine 100 mg dailyB6 daily [id number] SON LEIJA NP [address] [address] 02/16/2022 11:50:24 02/20/2022 12:03:24 Chronic obstructive pulmonary disease 84837779 J41.0 monitor for any sob, O2 if needed advair 250/50 bid combivent 20/100 tid flonase daily albuterol prn loratadine 10mg daily Hypothyroidism 25454141 E03.8 levothyrox ine 75 mcg daily will monitor Mixed anxi ety and depressive disorder 519344457 F41.8 mirtazapin e 15 mg qd. monitor mood Follow with NEG as able. Pain in right knee 86301 15724 19959 M25.561 lidoderm patch right kneediclof enac gel bidtylenol 650 mg q6hr prn Tuberculosis 92513099 A1 8.89 combivent tid, advair 250/50 bid proair with spacer q 4h prn. O2 prn to maintain sats >90% Monitor respirator y function F/U with resp therapist and pulmonary as able. Gastroesop hageal reflux disease without esophagitis 364102811 K21.9 pepcid 20 mg daily Vitamin deficiency 07897 002 E56.9 mvi dailythiam ine 100 mg dailyB6 daily [id number] CHASE Eduardo [address] [address] 03/08/2022 11:23:24 03/13/2022 16:32:13 Cellulitis of finger of right hand 3274115781 4802295 L03.011 bacitracin cream apply qd [place]mon[place] tor. [id number] Toma Alvarado MD [address] [address] 03/30/2022 08:39:42 04/03/2022 11:43:48 Chronic obstructive pulmonary disease 16134152 J41.0 Advair 250-50: one puff bidCombive nt Respimat 20-100: one puff tidalbuter ol HFA 1 puff q4h prnwill monitor Gastroesop hageal reflux disease without esophagitis 375727065 K21.9 famotidine 20 mg at hswill monitor Hypothyroidism 58293473 E03.8 levothyrox ine 75 mcg dailywill monitor Mixed anxi ety and depressive disorder 026728063 F41.8 mirtazapin e 15 mg at hswill monitor Vitamin deficiency 59650 002 E56.9 pyridoxine 100 mg dailythiam ine 100 mg dailyMVI dailywill monitor Osteoarthritis 766080754 M17.11 APAP 650 mg q6h prndiclofe nac topical gel to right knee bid prnBengay cream to right knee q8h prnlidocai ne patch 4% to right knee dailywill monitor [id number] SON LEIJA NP [address] [phone] 05/23/2022 13:08:08 05/29/2022 16:22:19 Chronic obstructive pulmonary disease 76245941 J41.0 Advair 250-50: one puff bidCombive nt Respimat 20-100: one puff tidalbuter ol HFA 1 puff q4h prnwill monitor Gastroesop hageal reflux disease without esophagitis 000444465 K21.9 famotidine 20 mg at hswill monitor Hypothyroidism 17461248 E03.8 levothyrox ine 75 mcg dailywill monitor Mixed anxi ety and depressive disorder 530114601 F41.8 mirtazapin e 15 mg at hswill monitor Vitamin deficiency 45196 002 E56.9 pyridoxine 100 mg dailythiam ine 100 mg dailyMVI dailywill monitor Osteoarthritis 545851884 M17.11 APAP 650 mg q6h prndiclofe nac topical gel to right knee bid prnBengay cream to right knee q8h prnlidocai ne patch 4% to right knee dailywill monitor Tuberculosis 10904177 A1 8.89 combivent tid, advair 250/50 bid proair with spacer q 4h prn. O2 prn to maintain sats >90% Monitor respirator y function F/U with resp therapist and pulmonary as able. [id number] Toma Alvarado MD [address] [address] 07/13/2022 07:10:41 07/17/2022 14:08:46 Chronic obstructive pulmonary disease 37828688 J41.0 Advair 250-50: one puff bidCombive nt Respimat 20-100: one puff tidalbuter ol HFA 1 puff q4h prnwill monitor Hypothyroidism 07308816 E03.8 levothyrox ine 75 mcg dailywill monitor Mixed anxi ety and depressive disorder 037143153 F41.8 mirtazapin e 15 mg at hswill monitor Gastroesop hageal reflux disease without esophagitis 686241005 K21.9 famotidine 20 mg at hswill monitor History of malignant neoplasm of ovary 088106073 Z85.43 s/p DYLLAN, SBOhas refused further treatment [id number] SON LEIJA NP [address] [address] 09/05/2022 17:06:29 09/11/2022 14:11:08 Chronic obstructive pulmonary disease 10602500 J41.0 Advair 250-50: one puff bidCombive nt Respimat 20-100: one puff tidalbuter ol HFA 1 puff q4h prnwill monitor Hypothyroidism 31544767 E03.8 levothyrox ine 75 mcg dailywill monitor Mixed anxi ety and depressive disorder 372990211 F41.8 mirtazapin e 15 mg at hswill monitor Gastroesop hageal reflux disease without esophagitis 372291479 K21.9 famotidine 20 mg at hswill monitor Tuberculosis 15448753 A1 8.89 combivent tid, advair 250/50 bid proair with spacer q 4h prn. O2 prn to maintain sats >90% Monitor respirator y function F/U with resp therapist and pulmonary as able. Toma Alvarado MD [address] [address] 12/07/2022 10:38:11 12/11/2022 08:03:41 Chronic obstructive pulmonary disease 93583245 J41.0 Advair 250-50: one puff bidCombive nt Respimat 20-100: one puff tidalbuter ol HFA 1 puff q4h prnwill monitor Mixed anxi ety and depressive disorder 852010447 F41.8 mirtazapin e 15 mg at hswill monitor Gastroesop hageal reflux disease without esophagitis 191349250 K21.9 famotidine 20 mg at hswill monitor Hypothyroidism 86919747 E03.8 levothyrox ine 75 mcg dailywill monitor Chronic pain 12672308 G8 9.29 diclofenac gel to right knee bid prnlidocai ne patch to right knee dailyAPAP 650 mg q6h prnwill monitor [id number] SON LEIJA NP [address] [address] 01/28/2023 14:21:07 01/31/2023 15:22:09 Chronic obstructive pulmonary disease 67602511 J41.0 Advair 250-50: one puff bidCombive nt Respimat 20-100: one puff tidalbuter ol HFA 1 puff q4h prnwill monitor Mixed anxi ety and depressive disorder 887394221 F41.8 mirtazapin e 15 mg at hswill monitor Gastroesop hageal reflux disease without esophagitis 346776894 K21.9 famotidine 20 mg at hswill monitor Hypothyroidism 27664820 E03.8 levothyrox ine 75 mcg dailywill monitor Chronic pain 77990002 G8 9.29 diclofenac gel to right knee bid prnlidocai ne patch to right knee dailyAPAP 650 mg q6h prnwill monitor [id number] KEILA BRASHER WERO [address] [place] [phone] 02/15/2023 13:27:41 02/20/2023 16:52:34 Chronic obstructive pulmonary disease 26972929 J41.0 Advair 250-50: one puff bidCombive nt Respimat 20-100: one puff tidalbuter ol HFA 1 puff q4h prnwill monitor Mixed anxi ety and depressive disorder 727427572 F41.8 mirtazapin e 15 mg at hswill monitor Gastroesop hageal reflux disease without esophagitis 209543673 K21.9 famotidine 20 mg at hswill monitor Hypothyroidism 11534398 E03.8 levothyrox ine 75 mcg dailywill monitor Chronic pain 50896581 G8 9.29 diclofenac gel to right knee bid prnlidocai ne patch to right knee dailyAPAP 650 mg q6h prnwill monitor Vitamin deficiency 18172 002 E56.9 pyridoxine 100 mg dailythiam ine 100 mg dailyMVI dailywill monitor [id number] MD KAREN Pope [address] [place] [phone] 5 03/28/2023 13:20:05 04/11/2023 13:24:13 Chronic obstructive pulmonary disease 61274101 J41.0 No current sxs.Contin ue Advair 250/50 BID, Combivent Respimat 1 puff TID and albuterol HFA 1 puff q 4 hrs prnMonitor resp. status. Mixed anxi ety and depressive disorder 038484774 F41.8 Mood good today.Cont inue mirtazapin e 15 mg at hsMonitor moodPsych follows, no GDR recommende d. Gastroesop hageal reflux disease without esophagitis 957164365 K21.9 Under good controlCon tinue famotidine 20 mg at hsMonitor for sxs Hypothyroidism 45704053 E03.8 Last TSH 02/2021 was WNLContinu e levothyrox ine 75 mcg dailyMonit or TSH yearly, will order with next labs. Chronic pain 19050287 G8 9.29 She says pain is adequately controlled .Continue diclofenac gel to right knee BID prn, lidocaine patch to right knee daily and APAP 650 mg q 6 hrs prnMonitor sxs. Vitamin deficiency 33453 002 E56.8 Continue pyridoxine 100 mg daily, thiamine 100 mg daily, and MVI dailyNo monitoring needed. [id number] KEILA BRASHER [address] [place] [phone] 5 04/05/2023 13:30:53 04/11/2023 13:56:07 Chronic obstructive pulmonary disease 66117587 J41.0 Advair 250-50: one puff bidCombive nt Respimat 20-100: one puff tidalbuter ol HFA 1 puff q4h prnwill monitor Mixed anxi ety and depressive disorder 892835152 F41.8 mirtazapin e 15 mg at hswill monitor [id number] KEILA BRASHER [address] [place] [phone] 5 05/17/2023 10:17:44 05/21/2023 16:07:38 Chronic obstructive pulmonary disease 90097450 J41.0 Advair 250-50: one puff bidCombive nt Respimat 20-100: one puff tidalbuter ol HFA 1 puff q4h prnwill monitor Mixed anxi ety and depressive disorder 375224436 F41.8 mirtazapin e 15 mg at hswill monitor Gastroesop hageal reflux disease without esophagitis 702924733 K21.9 famotidine 20 mg at hswill monitor Hypothyroidism 99521037 E03.8 levothyrox ine 75 mcg dailywill monitor Chronic pain 13312405 G8 9.29 diclofenac gel to right knee bid prnlidocai ne patch to right knee dailyAPAP 650 mg q6h prnwill monitor Vitamin deficiency 86244 002 E56.9 pyridoxine 100 mg dailythiam ine 100 mg dailyMVI dailywill monitor [id number] KEILA BRASHER WERO [address] [place] [address] 5 07/08/2023 13:04:17 07/09/2023 20:04:53 Pain of left knee region 1878396597 72207 M25.562 tylenol prnxray of left kneePT OT eval and treat prn [id number] Kianna Alvarez MD [address] [phone] 5 08/16/2023 13:59:50 08/20/2023 11:12:11 Pain of left knee region 2292179966 07465 M25.562 Says it's much better.Con tinue diclofenac gel 4 gms BID and APAP 650 mg q 6 hrs prn.Monito r sxs. Chronic ob structive pulmonary disease 69112889 J41.0 Continues at mild baseline.C ontinue Advair 250/50 BID, Combivent Respimat 1 puff TID and albuterol HFA 1 puff q 4 hrs prnMonitor resp. status. Mixed anxi ety and depressive disorder 014975613 F41.8 Mood remains good at most times.Cont inue mirtazapin e 15 mg qhsMonitor moodPsych continues to follow intermitte ntly, no GDR recommende d. Gastroesop hageal reflux disease without esophagitis 512839396 K21.9 No current sxs.Contin ue famotidine 20 mg qhsMonitor for sxs Hypothyroidism 13470719 E03.8 Last TSH was in ont inue levothyrox ine 75 mcg dailyMonit or TSH yearly, will order with next labs. Chronic pain 63672342 G8 9.29 As above.Also gets lidocaine patch to right knee daily.Elsy tor [id number] KEILA BRASHER [address] [place] [phone] 10/09/2023 13:25:53 10/22/2023 10:00:48 Chronic obstructive pulmonary disease 28772552 J41.0 Advair 250-50: one puff bidCombive nt Respimat 20-100: one puff tidalbuter ol HFA 1 puff q4h prnwill monitor Mixed anxi ety and depressive disorder 564784190 F41.8 mirtazapin e 15 mg at hswill monitor Gastroesop hageal reflux disease without esophagitis 315729264 K21.9 famotidine 20 mg at hswill monitor Hypothyroidism 11235667 E03.8 levothyrox ine 75 mcg dailywill monitor Chronic pain 77831945 G8 9.29 diclofenac gel to right knee bid prnlidocai ne patch to right knee dailyAPAP 650 mg q6h prnwill monitor Vitamin deficiency 87656 002 E56.9 pyridoxine 100 mg dailythiam ine 100 mg dailyMVI dailywill monitor [id number] CHASE CHE [address] [place] [address] [place] [address] 10/23/2023 11:46:55 10/30/2023 12:50:00 Contact dermatitis 34904154 L25.9 see hpihydroco rtisone 1% bid for 5 days and re evalPatien t encouraged to avoid scratching or touching affected areanursin g to offer prn tylenol for discomfort . [id number] MD KAREN Pope [address] [place] [address] 5 12/10/2023 16:27:11 01/13/2024 15:10:49 Pain of left knee region 2714742889 65399 M25.562 Continues to do well with diclofenac gel 4 gms BID and APAP 650 mg q 6 hrs prn.Monito r sxs. Chronic ob structive pulmonary disease 23646166 J43.8 No recent exacerbati ons.Contin ue Advair 250/50 BID, Combivent Respimat 1 puff TID and albuterol HFA 1 puff q 4 hrs prnMonitor resp. status. Mixed anxi ety and depressive disorder 946594521 F41.8 Mood is stable, enjoys activities .Continue mirtazapin e 15 mg qhsMonitor moodPsych follows, last seen on 12/15 with no rec for med changes. Gastroesop hageal reflux disease without esophagitis 899009452 K21.9 No current sxs.Contin ue famotidine 20 mg qhsMonitor for sxs Hypothyroidism 27978030 E03.8 Last TSH in 08/2023 was sl. low at 0.17, no FT4 checked and no recheck done.Mandi nue levothyrox ine 75 mcg qd for nowRecheck TSH with FT4. Chronic pain 03091347 G8 9.29 As above.Also gets lidocaine patch to right knee daily.Elsy resendez [id number] CHASE CHE [address] [address] 01/30/2024 11:16:15 02/04/2024 12:17:43 Chronic obstructive pulmonary disease 36151877 J43.8 stableCont inue Advair 250/50 BID,contin ue Combivent Respimat 1 puff TIDcontinu e albuterol HFA 1 puff q 4 hrs prnMonitor resp. status. Mixed anxi ety and depressive disorder 189280852 F41.8 Continue mirtazapin e 15 mg qhsMonitor mood Gastroesop hageal reflux disease without esophagitis 749898191 K21.9 Continue famotidine 20 mg qhsMonitor for sxs Hypothyroidism 00991669 E03.8 Continue levothyrox ine 75 mcg qdmonitor labs prn Chronic pain 13724461 G8 9.29 As above.Also gets lidocaine patch to right knee daily.Elsy resendez [id number] CHASE CHE [address] [phone] 03/12/2024 09:49:24 03/25/2024 14:50:38 Chronic obstructive pulmonary disease 95270498 J43.8 stableCont inue Advair 250/50 BID,contin ue Combivent Respimat 1 puff TIDcontinu e albuterol HFA 1 puff q 4 hrs prnMonitor resp. status. Mixed anxi ety and depressive disorder 552979929 F41.8 Continue mirtazapin e 15 mg qhsMonitor mood Gastroesop hageal reflux disease without esophagitis 547292599 K21.9 Continue famotidine 20 mg qhsMonitor for sxs Hypothyroidism 02243664 E03.8 Continue levothyrox ine 75 mcg qdmonitor labs prn Chronic pain 25257811 G8 9.29 As above.Also gets lidocaine patch to right knee daily.Elsy tor Vitamin deficiency 83201 002 E56.9 continue pyridoxine 100 mg daily ,thiamine 100 mg daily ,MVI daily Pain of knee region 1003 068326 M25.569 lidoderm patch right kneediclof enac gel bidtylenol 650 mg q6hr prn [id number] MD KAREN Pope [address] [facility] [place] [address] 04/17/2024 21:47:21 05/05/2024 07:56:21 Chronic obstructive pulmonary disease 99981138 J43.8 No recent exacerbati ons.Contin ue Advair 250/50 BID, Combivent Respimat 1 puff TID and albuterol HFA 1 puff q 4 hrs prnMonitor resp. status. Mixed anxi ety and depressive disorder 721830927 F41.8 Mood good tonight.Co ntinue mirtazapin e 15 mg qhsMonitor moodPsych follows, last seen on 03/23/24 with no rec for med changes. Gastroesop hageal reflux disease without esophagitis 631311072 K21.9 No current sxs.Contin ue famotidine 20 mg qhsMonitor for GI sxs Pain of le ft knee region 7783851252 46464 M25.562 Continues to do well with diclofenac gel 4 gms BID and APAP 650 mg q 6 hrs prn.Also uses lidocaine patch on right knee.Monit or sxs. Hypothyroidism 92067849 E03.8 Last TSH remains sl. low at 0.12, but with normal FT4.Contin ue levothyrox ine 75 mcg qd for nowRecheck TSH with FT4 in 3 months. Chronic pain 27703043 G8 9.29 As above.Elsy tor sxs [id number] CHASE CHE [address] [facility] [place] [address] 05/14/2024 13:40:54 05/19/2024 13:06:16 Psoriasis 7169061 L40.9 Pruritic half dollar size, scaly red patch noted at base of hairline/ nap of neckwill add triamcinol one cream BID for 14 daysmonito r for resolution . [id number] CHASE CHE [facility] [address] [place] [address] 05/19/2024 10:01:52 05/20/2024 14:50:20 Psoriasis 1444911 L40.9 Pruritic half dollar size, scaly red patch noted at base of hairline/ nap of neck- improvingc ontinue triamcinol one cream BID for 14 daysmonito r for resolution . [id number] CHASE CHE [address] [place] [address] 5 06/03/2024 13:59:00 06/05/2024 10:24:55 Chronic obstructive pulmonary disease 87934641 J43.8 stableCont inue Advair 250/50 BID,contin ue Combivent Respimat 1 puff TIDcontinu e albuterol HFA 1 puff q 4 hrs prnMonitor resp. status. Mixed anxi ety and depressive disorder 967040515 F41.8 mood has been stableCont inue mirtazapin e 15 mg qhspsych prn Gastroesop hageal reflux disease without esophagitis 339550086 K21.9 Continue famotidine 20 mg qhsMonitor for sxs Hypothyroidism 92507826 E03.8 Continue levothyrox ine 75 mcg qdmonitor labs prn Chronic pain 88312329 G8 9.29 As above.Also gets lidocaine patch to right knee daily.Elsy tor Vitamin deficiency 03027 002 E56.9 continue pyridoxine 100 mg daily ,thiamine 100 mg daily ,MVI daily Pain of knee region 1003 735739 M25.569 lidoderm patch right kneediclof enac gel bidtylenol 650 mg q6hr prn Psoriasis 7823761 L40.9 resolved [id number] [facility] W[facility] [address] [place] [address] [place] [address] 07/23/2024 10:20:41 07/28/2024 15:44:44 Chronic obstructive pulmonary disease [id number] J43.8 stableCont inue Advair 250/50 BID,contin ue Combivent Respimat 1 puff TIDcontinu e albuterol HFA 1 puff q 4 hrs prnMonitor resp. status. Mixed anxi ety and depressive disorder 885984622 F41.8 mood has been stableCont inue mirtazapin e 15 mg qhspsych prn Gastroesop hageal reflux disease without esophagitis 219328203 K21.9 Continue famotidine 20 mg qhsMonitor for sxs Hypothyroidism 14754602 E03.8 Continue levothyrox ine 75 mcg qdmonitor labs prn Chronic pain 00644560 G8 9.29 As above.Also gets lidocaine patch to right knee daily.Elsy tor Vitamin deficiency 32559 002 E56.9 continue pyridoxine 100 mg daily ,thiamine 100 mg daily ,MVI daily Pain of knee region 1003 956654 M25.569 stable.lid oderm patch right kneediclof enac gel bidtylenol 650 mg q6hr prn Psoriasis 3414463 L40.9 resolved [id number] [facility] [address] [place] [address] 09/14/2024 12:31:36 09/22/2024 14:14:59 Chronic obstructive pulmonary disease 57232997 J43.8 stableCont inue Advair 250/50 BID,contin ue Combivent Respimat 1 puff TIDcontinu e albuterol HFA 1 puff q 4 hrs prnMonitor resp. status. 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 mood has been stableCont inue mirtazapin e 15 mg qhspsych prn Gastroesop hageal reflux disease without esophagitis 507690751 K21.9 Continue famotidine 20 mg qhsMonitor for sxs Hypothyroidism 78565144 E03.8 Continue levothyrox ine 75 mcg qdmonitor labs prn Chronic pain 08650211 G8 9.29 As above.Also gets lidocaine patch to right knee daily.Elsy tor Vitamin deficiency 98769 002 E56.9 continue pyridoxine 100 mg daily ,thiamine 100 mg daily ,MVI daily Pain of knee region 1003 677685 M25.569 stable.lid oderm patch right kneediclof enac gel bidtylenol 650 mg q6hr prn [id number] [facility] SCHWARZE [address] [place] [address] BRIAN VILLAGOMEZ [phone] 10/12/2024 10:37:58 10/13/2024 13:55:23 COVID-19 [id number] U07.1 we discussed antiviral, she is not interested ,s she reports that she is feeling better todaywill add prn robitussin and oxygen as wellcontin ue supportive therapy( tylenol, oxygen, robitussin ordered.)i ncrease fluids encouraged discussed with nursing, update provider with changes. [id number] [facility] [address] [place] [address] BRIAN VILLAGOMEZ [address] 01/10/2025 10:55:53 01/14/2025 16:09:23 Chronic obstructive pulmonary disease 59229845 J43.8 stableCont inue Advair 250/50 BID,contin ue Combivent Respimat 1 puff TIDcontinu e albuterol HFA 1 puff q 4 hrs prnMonitor resp. status. Mixed anxi ety and depressive disorder 150662532 F41.8 stableCont inue mirtazapin e 15 mg qhspsych prn Gastroesop hageal reflux disease without esophagitis 689592525 K21.9 stable/Con tinue famotidine 20 mg qhsMonitor for sxs Hypothyroidism 94987841 E03.8 Continue levothyrox ine 75 mcg qdmonitor labs prn Chronic pain 00243892 G8 9.29 stableAlso gets lidocaine patch to right knee daily.Elsy tor Vitamin deficiency 89065 002 E56.9 continue pyridoxine 100 mg daily ,thiamine 100 mg daily ,MVI daily Pain of knee region 1003 133912 M25.569 stable.lid oderm patch right kneediclof enac [...] ID Martino Member ID Guarantor Name 06/03/2024 1 [place] [employer] Brittanie R Guiel [id number] Brittanie Guiel 06/03/2024 2 [place] Brittanie R Guiel [id number] Brittanie Guiel 07/23/2024 1 [place] Brittanie R Guiel [id number] Brittanie Guiel 07/23/2024 2 [place] Brittanie R Guiel [id number] Brittanie Guiel 09/14/2024 1 [place] [employer] Brittanie R Guiel [id number] Brittanie Guiel 09/14/2024 2 [place] Brittanie R Guiel [id number] Brittanie Guiel 10/12/2024 1 [place] Brittanie R Guiel [id number] Brittanie Guiel 10/12/2024 2 [place] Brittanie R Guiel [id number] Brittanie Guiel 01/10/2025 1 [place] [employer] Brittanie R Guiel [id number] Brittanie Guiel 01/10/2025 2 [place] Brittanie R Guiel [id number] Brittanie Guiel Notes Date Note Type Note Provider Name and Address Organization Details Recorded Time 06/03/2024 text/html This is an 83 yo woman, [facility] resident with a past medical history that includes Tb, hx of ovarian CA-s/p DYLLAN & BSO, COPD, and depression/anxiety . Seen for routine rounding.She continue to stable without complaints. continues to do well, recent treated for a rash with resolution. She is independent with adls and calls for assistance as needed. She participates in recreational activities daily. [facility] [address] [facility] [address] [facility], [address], [place], [address], [facility] 06/03/2024 17:52:32 07/23/2024 text/html This is an 83 yo woman, [facility] resident with a past medical history that includes Tb, hx of ovarian CA-s/p DYLLAN & BSO, COPD, and depression/anxiety . Seen for routine rounding. She us stable at her baseline in NAD. There are no acute concerns. [facility] [address], [address], [place], [address], [employer] 07/23/2024 13:36:45 09/14/2024 text/html This is an 83 yo woman, LTC resident with a past medical history that includes Tb, hx of ovarian CA-s/p DYLLAN & BSO, COPD, and depression/anxiety . Seen for routine rounding. She is stable at her baseline in NAD. There are no acute concerns. She is eating and drinking ok, no concerns with elimination. [facility] [address], [address], [place], [address], [employer] 09/18/2024 18:11:40 10/12/2024 text/html This is an [...] covid. reportable sx reviewed. [facility] [address], [address], [place], [address], [employer] 10/12/2024 15:53:56 01/10/2025 text/html This is an [...] is no acute concerns. [facility] [address], [address], [place], [address], [facility] - [facility] 01/11/2025 10:18:20 OBGyn Episode No OBEpisode recorded.
[2025-03-15 07:01] LABS: Basophils Absolute Auto 0.1 X10*3/uL (0.0-0.2); Basophils Percent Auto 1.1 % (0-2); Eosinophils Absolute Auto 0.1 X10*3/uL (0.0-0.4); Eosinophils Percent Auto 2.5 % (0-4); Hematocrit 41.9 % (37.0-47.0); Hemoglobin 13.6 g/dl (12.0-16.0); Imm Gran Abs Auto 0.03 X10*3/uL (0.00-0.03); Imm Gran Pct Auto 0.5 % (0.0-0.4); Lymphocytes Absolute Auto 2.1 X10*3/uL (1.2-4.9); Lymphocytes Percent Auto 37.1 % (20-40); Mean Corpuscular HGB Conc 32.5 g/dl (31.0-35.0); Mean Corpuscular Hemoglobin 31.6 pg (27.0-33.0); Mean Corpuscular Volume 97.4 fL (80.0-98.0); Monocytes Absolute Auto 0.5 X10*3/uL (0.1-1.2); Monocytes Percent Auto 8.7 % (2-11); Neutrophils Absolute Auto 2.8 x10*3/uL (2.0-8.3); Neutrophils Percent Auto 50.1 % (45-73); Platelet Count 232 X10*3/uL (160-400); Red Cell Distribution Width 14.6 % (11.0-16.0); White Blood Count 5.6 X10*3/uL (4.8-10.8)
[2025-03-15 07:12] LABS: Anion Gap 12 (12-20); Blood Urea Nitrogen 22 mg/dL (9-16); Calcium 8.9 mg/dL (8.4-10.2); Carbon Dioxide 25 mmol/L (22-29); Chloride 109 mmol/L (96-108); Estimated Glomerular Filt Rate 60; Potassium 3.6 mmol/L (3.3-5.1); Sodium 142 mmol/L (135-145)
[2025-03-15 07:17] LABS: Glucose Random 57 mg/dL (60-115)
== END 2025-03-15 05:48 | disposition home or self-care (01) ==
LOC: HO.MMNH3L 05:47
PROVIDERS: Visit Provider Family Medicine
DX: A15.0 Tuberculosis of lung (principal); J96.01 Acute respiratory failure with hypoxia
CPT/HCPCS: 36415; 80048; 85025

== ENCOUNTER 2025-04-06 05:32 | Outpatient (REF) | payer MEDICARE, SELFPAY ==
[2025-04-06 05:34] LABS: MANUAL DIFF FLAG NO
[2025-04-06 06:12] LABS: Anion Gap 14 (12-20); Blood Urea Nitrogen 15 mg/dL (9-16); Calcium 9.1 mg/dL (8.4-10.2); Carbon Dioxide 20 mmol/L (22-29); Chloride 109 mmol/L (96-108); Estimated Glomerular Filt Rate > 60; Glucose Random 83 mg/dL (60-115); Potassium 3.8 mmol/L (3.3-5.1); Sodium 139 mmol/L (135-145)
[2025-04-06 06:19] LABS: Basophils Percent Auto 0.9 % (0-2); Eosinophils Absolute Auto 0.1 X10*3/uL (0.0-0.4); Eosinophils Percent Auto 1.3 % (0-4); Hematocrit 39.3 % (37.0-47.0); Hemoglobin 13.2 g/dl (12.0-16.0); Imm Gran Abs Auto 0.02 X10*3/uL (0.00-0.03); Imm Gran Pct Auto 0.4 % (0.0-0.4); Lymphocytes Percent Auto 22.2 % (20-40); Mean Corpuscular HGB Conc 33.6 g/dl (31.0-35.0); Mean Corpuscular Hemoglobin 31.7 pg (27.0-33.0); Mean Corpuscular Volume 94.5 fL (80.0-98.0); Mean Platelet Volume 9.9 fL (9.4-12.3); Monocytes Absolute Auto 0.5 X10*3/uL (0.1-1.2); Monocytes Percent Auto 10.7 % (2-11); Neutrophils Absolute Auto 2.9 x10*3/uL (2.0-8.3); Neutrophils Percent Auto 64.5 % (45-73); Platelet Count 175 X10*3/uL (160-400); Red Blood Count 4.16 X10*6/uL (4.20-5.50); Red Cell Distribution Width 13.6 % (11.0-16.0); White Blood Count 4.5 X10*3/uL (4.8-10.8)
== END 2025-04-06 05:33 | disposition home or self-care (01) ==
LOC: HO.MMNH3L 05:32
PROVIDERS: Visit Provider Family Medicine
DX: J44.9 Chronic obstructive pulmonary disease, unspecified (principal)
CPT/HCPCS: 36415; 80048; 85025

== ENCOUNTER 2025-04-12 07:46 | Outpatient (REF) | payer MEDICARE, SELFPAY ==
[2025-04-12 06:32] LABS: MANUAL DIFF FLAG NO
[2025-04-12 06:54] LABS: Basophils Percent Auto 0.6 % (0-2); Eosinophils Percent Auto 0.3 % (0-4); Hematocrit 35.3 % (37.0-47.0); Hemoglobin 12.1 g/dl (12.0-16.0); Imm Gran Abs Auto 0.04 X10*3/uL (0.00-0.03); Imm Gran Pct Auto 0.6 % (0.0-0.4); Lymphocytes Absolute Auto 1.5 X10*3/uL (1.2-4.9); Lymphocytes Percent Auto 21.2 % (20-40); Mean Corpuscular HGB Conc 34.3 g/dl (31.0-35.0); Mean Corpuscular Hemoglobin 32.4 pg (27.0-33.0); Mean Corpuscular Volume 94.6 fL (80.0-98.0); Mean Platelet Volume 10.6 fL (9.4-12.3); Monocytes Absolute Auto 0.6 X10*3/uL (0.1-1.2); Neutrophils Percent Auto 69.3 % (45-73); Platelet Count 176 X10*3/uL (160-400); Red Blood Count 3.73 X10*6/uL (4.20-5.50); Red Cell Distribution Width 13.4 % (11.0-16.0); White Blood Count 7.1 X10*3/uL (4.8-10.8)
[2025-04-12 07:14] LABS: Anion Gap 11 (12-20); Blood Urea Nitrogen 37 mg/dL (9-16); Calcium 8.5 mg/dL (8.4-10.2); Carbon Dioxide 24 mmol/L (22-29); Chloride 106 mmol/L (96-108); Estimated Glomerular Filt Rate 49; Glucose Random 81 mg/dL (60-115); Potassium 3.6 mmol/L (3.3-5.1); Sodium 137 mmol/L (135-145)
--- OUTSIDE RECORDS SUMMARY | 2025-04-12 07:49 | XMS_ITS | Encounter Summary ---
Author Organization [facility] Address [address] [place] [address] Care Team Providers Care Party Host/Hostess Name Role Phone Marco Antonio Silva MD Primary Care Provider Unava wvable Alejandra Mo MD Primary Care Provider [phone] Encounter Details Date Type Department Care Team Description 08/14/2019 Orders Only Medical Records [address] [place] [address] Ricky Major MD [address] [place] [phone] Social History Tobacco Use Types Packs/Day Years Used Date Smoking Tobacco: Never Assessed Sex Assigned at Date Recorded Not on file documented as of this encounter Plan of Treatment Not on file documented as of this encounter Procedures Procedure Name Priority Date/Time Associated Diagnosis Comments OUTSIDE PLAIN FILM Routine 08/14/2019 documented in this encounter Results * OUTSIDE PLAIN FILM (08/14/2019) Ricky Major MD RADIOLOGY documented in this encounter Visit Diagnoses Not on filedocumented in this encounter Care Teams Party Host/Hostess Relationship Specialty Start Date End Date Marco Antonio Silva MD PCP - General Internal Medicine 07/17/19 12/20/20 Alejandra Mo MD PCP - General Internal Medicine 12/21/20 documented as of this encounter
== END 2025-04-12 07:47 | disposition home or self-care (01) ==
LOC: HO.MMNH3L 07:46
PROVIDERS: Visit Provider Family Medicine
DX: J96.01 Acute respiratory failure with hypoxia (principal)
CPT/HCPCS: 36415; 80048; 85025

== ENCOUNTER 2025-04-22 05:51 | Outpatient (REF) | payer MEDICARE, SELFPAY ==
[2025-04-22 05:54] LABS: MANUAL DIFF FLAG NO
[2025-04-22 06:33] LABS: Hematocrit 36.1 % (37.0-47.0); Hemoglobin 12.3 g/dl (12.0-16.0); Imm Gran Abs Auto 0.02 X10*3/uL (0.00-0.03); Imm Gran Pct Auto 0.4 % (0.0-0.4); Lymphocytes Absolute Auto 1.7 X10*3/uL (1.2-4.9); Mean Corpuscular HGB Conc 34.1 g/dl (31.0-35.0); Mean Corpuscular Hemoglobin 31.9 pg (27.0-33.0); Mean Corpuscular Volume 93.8 fL (80.0-98.0); NRBC Abs Auto 0.000 X10*3/uL (0.0-0.012); NRBC Pct Auto 0.0 /100WBC (0.0-0.2); Platelet Count 247 X10*3/uL (160-400); Red Blood Count 3.85 X10*6/uL (4.20-5.50); White Blood Count 5.5 X10*3/uL (4.8-10.8)
[2025-04-22 06:39] LABS: Alanine Aminotransferase 6 U/L (0-31); Albumin Level 3.1 g/dL (3.5-5.0); Alkaline Phosphatase 73 U/L (39-117); Anion Gap 11 (12-20); Aspartate Amino Transferase 17 U/L (5-31); Blood Urea Nitrogen 18 mg/dL (9-16); Calcium 8.2 mg/dL (8.4-10.2); Carbon Dioxide 24 mmol/L (22-29); Chloride 106 mmol/L (96-108); Estimated Glomerular Filt Rate > 60; Potassium 3.6 mmol/L (3.3-5.1); Sodium 137 mmol/L (135-145); Total Protein 6.0 g/dL (6.5-8.0)
== END 2025-04-22 05:52 | disposition home or self-care (01) ==
LOC: HO.MMNH3L 05:51
PROVIDERS: Visit Provider Family Medicine
DX: J44.9 Chronic obstructive pulmonary disease, unspecified (principal); E08.40 Diabetes mellitus due to underlying condition with diabetic neuropathy, unspecified; F03.93 Unspecified dementia, unspecified severity, with mood disturbance
CPT/HCPCS: 36415; 80053; 85025

== ENCOUNTER 2025-04-29 06:10 | Outpatient (REF) | payer MEDICARE, SELFPAY ==
--- OUTSIDE RECORDS SUMMARY | 2025-04-29 06:13 | XMS_ITS | Clinical Summary ---
Author Organization [facility] Address [address] [place] [address] Care Team Providers Care Civil Engineer Land Development Name Role Phone Alejandra Mo MD Primary Care Provider [phone] Surgical History Surgery Date Site/Laterality Comments ANKLE [...] 2023-2 5 season) 2024 Influenza Vaccine (#1) 2025 HIB Vaccines Aged Out No longer [...] Documents on File Type Date Recorded Patient Hedge Fund Trader Expl anation Health Care Decision (hx) 08/21/2019 AD MYERS DIRECTIVE Health Care Decision (hx) 07/28/2019 AD MYERS DIRECTIVE Care Teams Civil Engineer Land Development Relationship Specialty Start Date End Date Alejandra Mo MD PCP - General Internal Medicine 12/21/20
[2025-04-29 06:58] LABS: Thyroid Stimulating Hormone 1.70 uIU/mL (0.32-4.0)
== END 2025-04-29 06:11 | disposition home or self-care (01) ==
LOC: HO.MMNH3L 06:10
PROVIDERS: Visit Provider Family Medicine
DX: E03.9 Hypothyroidism, unspecified (principal)
CPT/HCPCS: 36415; 84443

== ENCOUNTER 2025-05-17 06:13 | Outpatient (REF) | payer MEDICARE, SELFPAY ==
[2025-05-17 06:13] LABS: MANUAL DIFF FLAG NO
--- OUTSIDE RECORDS SUMMARY | 2025-05-17 06:14 | XMS_ITS | Clinical Summary ---
Author Organization [facility] Address [address] [place] [address] Care Team Providers Care Data Sme Name Role Phone Alejandra Mo MD Primary Care Provider Surgical History Surgery Date Site/Laterality Comments ANKLE SURGERY PROCEDURE: HISTORICAL ANKLE SURGERY OTHER SURGICAL HISTORY PROCEDURE: [place] TOTAL ABDOMINAL HYSTERECT W/WO RMVL TUBE OVARY [...] - 1-dose 75+ series) 2016 COVID-19 Vaccine (1 - 2023-2 5 season) 2024 Depression Screening 10/14/2024 Influenza Vaccine (#1) 2025 HIB Vaccines Aged [...] Documents on File Type Date Recorded Patient Clerical Associate Expl anation Health Care Decision (hx) 08/21/2019 AD MYERS DIRECTIVE Health Care Decision (hx) 07/28/2019 AD MYERS DIRECTIVE Care Teams Data Sme Relationship Specialty Start Date End Date Alejandra Mo MD PCP - General Internal Medicine 12/21/20
[2025-05-17 07:18] LABS: Hematocrit 34.8 % (37.0-47.0); Hemoglobin 11.6 g/dl (12.0-16.0); Imm Gran Abs Auto 0.01 X10*3/uL (0.00-0.03); Imm Gran Pct Auto 0.2 % (0.0-0.4); Lymphocytes Absolute Auto 1.9 X10*3/uL (1.2-4.9); Mean Corpuscular HGB Conc 33.3 g/dl (31.0-35.0); Mean Corpuscular Hemoglobin 31.6 pg (27.0-33.0); Mean Corpuscular Volume 94.8 fL (80.0-98.0); NRBC Abs Auto 0.000 X10*3/uL (0.0-0.012); NRBC Pct Auto 0.0 /100WBC (0.0-0.2); Platelet Count 210 X10*3/uL (160-400); Red Blood Count 3.67 X10*6/uL (4.20-5.50); White Blood Count 4.5 X10*3/uL (4.8-10.8)
[2025-05-17 07:28] LABS: Anion Gap 11 (12-20); Blood Urea Nitrogen 18 mg/dL (9-16); Calcium 8.1 mg/dL (8.4-10.2); Carbon Dioxide 23 mmol/L (22-29); Chloride 111 mmol/L (96-108); Estimated Glomerular Filt Rate > 60; Potassium 3.6 mmol/L (3.3-5.1); Sodium 141 mmol/L (135-145)
== END 2025-05-17 06:14 | disposition home or self-care (01) ==
LOC: HO.MMNH3L 06:13
PROVIDERS: Visit Provider Family Medicine
DX: J96.01 Acute respiratory failure with hypoxia (principal)
CPT/HCPCS: 36415; 80048; 85025

== ENCOUNTER 2025-06-15 06:15 | Outpatient (REF) | payer MEDICARE, SELFPAY ==
[2025-06-15 06:09] LABS: MANUAL DIFF FLAG NO
[2025-06-15 06:18] LABS: Hematocrit 40.3 % (37.0-47.0); Hemoglobin 12.9 g/dl (12.0-16.0); Imm Gran Abs Auto 0.02 X10*3/uL (0.00-0.03); Imm Gran Pct Auto 0.3 % (0.0-0.4); Lymphocytes Absolute Auto 3.2 X10*3/uL (1.2-4.9); Mean Corpuscular HGB Conc 32.0 g/dl (31.0-35.0); Mean Corpuscular Hemoglobin 30.6 pg (27.0-33.0); Mean Corpuscular Volume 95.7 fL (80.0-98.0); NRBC Abs Auto 0.000 X10*3/uL (0.0-0.012); NRBC Pct Auto 0.0 /100WBC (0.0-0.2); Platelet Count 266 X10*3/uL (160-400); Red Blood Count 4.21 X10*6/uL (4.20-5.50); White Blood Count 6.9 X10*3/uL (4.8-10.8)
--- OUTSIDE RECORDS SUMMARY | 2025-06-15 06:18 | XMS_ITS | Clinical Summary ---
Author Organization [facility] Address [address] [place] [address] Care Team Providers Care Check Inspector Name Role Phone Alejandra Mo MD Primary Care Provider [phone] Allergies No known active allergies Medications Medication [...] 72 01/26/2021 9:17 AM EDT Temperature 36.7 C (98.1 F) 01/26/2021 9:17 AM EDT Respiratory Rate 12 01/26/2021 9:17 AM EDT [...] ASSESSMENT 01/26/2022 01/26/2021 BMI CHECK/ADVISE 10/14/2024 INFLUENZA (#1) 2025 CHOLESTEROL SCREENING 01/26/2026 01/26/2021 Care Teams Check Inspector Relationship Specialty Start Date End Date Alejandra Mo MD PCP - General Internal Medicine 12/21/20
--- OUTSIDE RECORDS SUMMARY | 2025-06-15 06:18 | XMS_ITS | Encounter Summary ---
Author Organization [facility] Address [address] [place] [address] Care Team Providers Care Assessment Director Name Role Phone Marco Antonio Silva MD Primary Care Provider Unava ilable Alejandra Mo MD Primary Care Provider [phone] Encounter Details Date Type Department Care Team Description 07/19/2019 Hospital Medical Records [address] [place] [address] Ivan Lizarraga MD [address] [place] [phone] Social History Tobacco Use Types Packs/Day [...] on filedocumented in this encounter Care Teams Assessment Director Relationship Specialty Start Date End Date Marco Antonio Silva MD PCP - General Internal Medicine 07/17/19 12/20/20 Alejandra Mo MD PCP - General Internal Medicine 12/21/20 documented as of this encounter
--- OUTSIDE RECORDS SUMMARY | 2025-06-15 06:18 | XMS_ITS | Clinical Summary ---
Author Organization [facility] Address [address] [place] [address] Care Team Providers Care Nailing Machine Feeder Name Role Phone Alejandra Mo MD Primary Care Provider Unavail able Surgical History Surgery Date Site/Laterality Comments ANKLE SURGERY PROCEDURE: HISTORICAL ANKLE SURGERY OTHER SURGICAL HISTORY PROCEDURE: MD TOTAL ABDOMINAL HYSTERECT W/WO RMVL TUBE OVARY [...] Vaccine ( - 2023-2 5 season) 2024 Depression Screening [...] Documents on File Type Date Recorded Patient Ct Manager Expl anation Health Care Decision (hx) 08/21/2019 AD MYERS DIRECTIVE Health Care Decision (hx) 07/28/2019 AD MYERS DIRECTIVE Care Teams Nailing Machine Feeder Relationship Specialty Start Date End Date Alejandra Mo MD PCP - General Internal Medicine 12/21/20
--- OUTSIDE RECORDS SUMMARY | 2025-06-15 06:18 | XMS_ITS | Encounter Summary ---
Author Organization [facility] Address [address] [place] [address] Care Team Providers Care Manager Of Pmo Name Role Phone Marco Antonio Silva MD Primary Care Provider Unava nhable Alejandra Mo MD Primary Care Provider [phone] Encounter Details Date Type Department Care Team Description 08/14/2019 Orders Only Medical Records [address] [place] [address] Ricky Major MD [address] [place] [phone] Social History Tobacco Use Types Packs/Day [...] on filedocumented in this encounter Care Teams Manager Of Pmo Relationship Specialty Start Date End Date Marco Antonio Silva MD PCP - General Internal Medicine 07/17/19 12/20/20 Alejandra Mo MD PCP - General Internal Medicine 12/21/20 documented as of this encounter
[2025-06-15 06:44] LABS: Anion Gap 14 (12-20); Blood Urea Nitrogen 20 mg/dL (9-16); Calcium 8.6 mg/dL (8.4-10.2); Carbon Dioxide 21 mmol/L (22-29); Chloride 110 mmol/L (96-108); Estimated Glomerular Filt Rate > 60; Potassium 3.6 mmol/L (3.3-5.1); Sodium 141 mmol/L (135-145)
== END 2025-06-15 06:16 | disposition home or self-care (01) ==
LOC: HO.MMNH3L 06:15
PROVIDERS: Visit Provider Family Medicine
DX: J96.01 Acute respiratory failure with hypoxia (principal)
CPT/HCPCS: 36415; 80048; 85025

== ENCOUNTER 2025-07-19 06:45 | Outpatient (REF) | payer MEDICARE, SELFPAY ==
[2025-07-19 06:33] LABS: MANUAL DIFF FLAG NO
[2025-07-19 06:37] LABS: Hemoglobin 11.2 g/dl (12.0-16.0); Red Blood Count 3.62 X10*6/uL (4.20-5.50); White Blood Count 5.2 X10*3/uL (4.8-10.8)
[2025-07-19 06:38] LABS: Hematocrit 33.5 % (37.0-47.0); Imm Gran Abs Auto 0.01 X10*3/uL (0.00-0.03); Imm Gran Pct Auto 0.2 % (0.0-0.4); Lymphocytes Absolute Auto 2.2 X10*3/uL (1.2-4.9); Mean Corpuscular HGB Conc 33.4 g/dl (31.0-35.0); Mean Corpuscular Hemoglobin 30.9 pg (27.0-33.0); Mean Corpuscular Volume 92.5 fL (80.0-98.0); NRBC Abs Auto 0.000 X10*3/uL (0.0-0.012); NRBC Pct Auto 0.0 /100WBC (0.0-0.2); Platelet Count 219 X10*3/uL (160-400)
--- OUTSIDE RECORDS SUMMARY | 2025-07-19 07:00 | XMS_ITS | Encounter Summary ---
Author Organization [facility] Address [address] [place] [address] Care Team Providers Care Manager Dish Name Role Phone Marco Antonio Silva MD Primary Care Provider Unava ilable Alejandra Mo MD Primary Care Provider [phone] Encounter Details Date Type Department Care Team Description 07/19/2019 Hospital Medical Records [address] [place] [address] Ivan Lizarraga MD [address] [place] [phone] Social History Tobacco Use Types Packs/Day [...] filedocumented in this encounter Care Teams Manager Dish Relationship Specialty Start Date End Date Marco Antonio Silva MD PCP - General Internal Medicine 07/17/19 12/20/20 Alejandra Mo MD PCP - General Internal Medicine 12/21/20 documented as of this encounter
--- OUTSIDE RECORDS SUMMARY | 2025-07-19 07:00 | XMS_ITS | Encounter Summary ---
Author Organization [facility] Address [address] [place] [address] Care Team Providers Care Mri Assistant Name Role Phone Marco Antonio Silva MD Primary Care Provider Unava caable Alejandra Mo MD Primary Care Provider [phone] Encounter Details Date Type Department Care Team Description 08/14/2019 Orders Only Medical Records [address] [place] [address] Ricky Major MD [address] [place] [phone] Social History Tobacco Use Types Packs/Day [...] on filedocumented in this encounter Care Teams Mri Assistant Relationship Specialty Start Date End Date Marco Antonio Silva MD PCP - General Internal Medicine 07/17/19 12/20/20 Alejandra Mo MD PCP - General Internal Medicine 12/21/20 documented as of this encounter
--- OUTSIDE RECORDS SUMMARY | 2025-07-19 07:00 | XMS_ITS | Clinical Summary ---
Author Organization [facility] Address [address] [place] [address] Care Team Providers Care Scroll Shear Operator Name Role Phone Alejandra Mo MD Primary Care Provider [phone] Allergies No known active allergies Medications Medication [...] 2025 CHOLESTEROL SCREENING 01/26/2026 01/26/2021 Care Teams Scroll Shear Operator Relationship Specialty Start Date End Date Alejandra Mo MD PCP - General Internal Medicine 12/21/20
--- OUTSIDE RECORDS SUMMARY | 2025-07-19 07:00 | XMS_ITS | Data Portability ---
Author Organization [facility], Main Office Address [address] [facility] [address] [place] [address] Care Team Providers Care Plating Stripper Name Role Phone KAREN CONTEH 3RD FLOOR OTHER [phone] Assessment Encounter Date Assessment Date Assessment LastModified by Organization Details LastModified Time 01/10/2025 01/10/2025 labs 3/3: Na 140-K 3.9-bun 19- cr 0.8-wbc 4.8-hgb 14.3-hct 42.9-plt 205 Not available 01/11/2025 10:17:02 04/05/2025 04/05/2025 labs 3/3: Na 140-K 3.9-bun 19- cr 0.8-wbc 4.8-hgb 14.3-hct 42.9-plt 205 [email or web address] Not available 04/05/2025 11:59:36 04/21/2025 04/21/2025 Labs ordered for 04/21 pending Not available 04/21/2025 13:09:58 Plan of Treatment Reminders Order Date Submit [...] Name and Address Organization Details Recorded Time Tuberculos is 17262734 [facility] Healthcare associated bacterial pneumonia 170616115 [facility] 10:[facility]18 Diagnostic pneumomedi astinum Active 2018 Hina gonzalez, [facility] 9 10:16:34 Severe protein-ca yobani malnutriti on (Bell: less than 60 percent of standard weight) 841432974 Active 2018 Hina gonzalez, [facility] 9 10:17:04 Mediastina l emphysema 54601106 Active 2018 Hina gonzalez, [facility] 9 10:17:42 History of malignant neoplasm of ovary 559778103 Active 2018 Hinamarie gonzalez, [facility] 9 10:18:05 Mixed anxiety and depressive disorder 656866342 Active 2018 Nichelle gonzalez, [facility] [employer] [facility] 9 10:56:15 Chronic obstructiv e pulmonary disease 25133879 Active 2019 Kianna Alvarez MD [address] [facility], [address], [place], [address] , [facility] 0 22:40:16 Hypothyroi dism 67395989 Active 2019 Toma Alvarado MD [address] [facility] [address], [address], [place], [address] , [facility] 0 09:30:52 SARS-CoV-2 Active 2019 SON LEIJA NP [address], [address], [place], [address] , [facility] 0 11:35:17 Pain in right knee Active 2020 SON LEIJA NP [address] [facility] [address], [address], [place], [address] , [facility] [employer] [facility] 1 13:53:06 Gastroesop hageal reflux disease without esophagiti s 234246048 Active 2020 SON LEIJA NP [address] [facility] [address], [address], [place], [address] , [facility] [employer] [facility] 1 12:16:37 Vitamin deficiency 58194589 Active 2020 SON LEIJA NP [address] [facility] [address], [address], [place], [address] , [employer] [facility] 1 12:17:06 Pain of left knee region 5681924742382 09 Active 2022 SON LEIJA NP [address] [facility], [address], [place], [address] , [facility] 3 13:05:00 Chronic pain 54757182 Active 2023 Kianna Alvarez MD [address] [facility] [facility] [address], [address], [place], [address] , [facility] 4 11:01:01 Problem Notes None recorded. Medical Equipment None Reported. Allergies No known drug allergies Medications Not known to be on any medication Vitals Date Recorded Body height Heart rate Respiratory rate Body temperature Oxygen saturation Oxygen saturation in Arterial blood by Pulse oximetry Systolic And Diastolic Provider Name and Address Organization Details Last Updated DateTime 5 149.86 cm 78 /min 18 /min 97.7 [degF] 94 % 94 % 118/67 mm[Hg] [facility] [address] [facility] [facility] [address], [address], [place], [address], [facility] 5 10:17:43 Date Recorded Body height Respiratory rate Body temperature Oxygen saturation Oxygen saturation in Arterial blood by Pulse oximetry Heart rate Systolic And Diastolic Provider Name and Address Organization Details Last Updated DateTime 5 149.86 cm 18 /min 97.2 [degF] 96 % 96 % 74 /min 120/85 mm[Hg] [facility] [address] [facility] [address], [address], [place], [address], [facility] 5 13:08:28 Date Recorded Body height Heart rate Respiratory rate Body temperature Oxygen saturation Oxygen saturation in Arterial blood by Pulse oximetry Systolic And Diastolic Provider Name and Address Organization Details Last Updated DateTime 4 149.86 cm 75 /min 18 /min 98 [degF] 98 % 98 % 131/69 mm[Hg] [facility] [address] [facility], [address], [place], [address], [facility] [facility] 4 18:09:49 Date Recorded Body height Heart rate Respiratory rate Body temperature Oxygen saturation Oxygen saturation in Arterial blood by Pulse oximetry Systolic And Diastolic Provider Name and Address Organization Details Last Updated DateTime 4 149.86 cm 68 /min 18 /min 97.1 [degF] 96 % 96 % 134/70 mm[Hg] [facility] [address] [facility], [address], [place], [address], [facility] [employer] 4 15:34:38 Social History Question Answer Notes LastModified by Organizat ion Details LastModified Time Tobacco Smoking Status Former Smoker smoked 1.5 ppd, quit many yrs ago Kianna Alvarez MD [address] [facility] [address], [address], [place], [address], [facility] [employer] 08/16/2023 17:37:37 Do You Have An Advance Directive? Yes DNI Otherwise Full Code [id number] Information not available 08/09/2020 How Much Tobacco Do You Chew? None [id number] Information not available 08/09/2020 What Is Your Code Status? DNI Information not available 03/28/2023 Where Do You Live? [facility] Information not available 03/28/2023 Legal Guardian? No Informati on not available 03/28/2023 Do You Have A Medical Power Of Telehealth Case Manager? Yes Not Invoked Information not available 03/28/2023 [...] Many Years Have You Smoked Tobacco? 60 [id number] Information not available 08/09/2020 Sex: Unknown Functional Status Question Answer Note LastModified by Organizat ion Details LastModified Time Do you use any illicit or recreational drugs? No Information not available 03/28/2023 Do you or have you ever used any other forms of tobacco or nicotine? No Information not available 03/28/2023 What is your level of alcohol consumption? None [id number] Information not available 08/09/2020 Do you or have you ever used smokeless tobacco? Never used smokeless tobacco [id number] Information not available 08/09/2020 Do you or have you ever used e-cigarettes or vape? Never used electronic cigarettes [id number] Information not available 08/09/2020 Mental Status None recorded. Family History Relationship Description Onset Age of this Age Resolved Age Notes LastModified by Organization Details LastModified Time Father No current problems or disability [facility] Not available 08/21 09:44:07 Mother No current problems or disability [facility] Not available 08/21 09:44:07 Notes:N/C Medical History No medical history recorded. Gynecological HistoryNo gynecological history recorded. Obstetrics History GPAL:G 0 P 0 0 0 0 Immunizations Vaccine Type Date Status Note Provider Nam e and Address Organization Details Recorded Time Influenza, adjuvanted, quadrivalent, PF 08/27/2022 completed Gabriela David [facility] 11/01/2023 11:51:08 Influenza, adjuvanted, quadrivalent, PF 05/20/2023 [facility] 11:51:23 Past Encounters Encounter ID Performer Location Encounter Start Date Encounter Closed Date Diagnosis/Indication Diagnosis SNOMED-CT Code Diagnosis ICD10 Code Diagnosis IMO Codes Diagnosis Note [id number] ROMY PINEDA [address] [facility] [place] [address] 08/21/2019 09:44:29 09/01/2019 10:32:18 Tuberculosis 78050878 A18.89 continue Isoniazid, Rifampin, Pyrazinami de, Pyridoxine f/u at [facility] TB clinic on 08/25. Healthcare associated bacterial pneumonia 279993388 Y95 completed abx txcontinue brovana, pulmicort, duonebs scheduled and prn albuterolp ulmo and RT to follow here. 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 Mediastinal emphysema 16 027354 J98.2 pneumomedi astinum related to infection/ bronchosco pyno interventi on neededif resp sx develop will repeat cxr/CT chest Physical deconditioning 2881866288 9102 R68.89 PT/OT eval. [id number] Abhinav Gage MD [facility] [address] [place] [phone] 08/24/2019 08:02:58 09/01/2019 10:59:44 Tuberculosis 18448415 A15.0 see HPIfollowe d by ID of note in hospital case discussed with dept of public health ID and determined it was safe to take patient off airborne precaution s as she had been treated for > 14 daysf[facility] current Ab courseadd probioticu pdate ID with change in presentati onmonitor respirator y function Healthcare associated bacterial pneumonia 040167411 Y95 see HPIcomplet ed vanco and zosynsee above Asthenia 38211398 R53.1 PT OT eval and treatmonit or fall risk Severe protein-calorie malnutrition (Bell: less than 60 percent of standard weight) 719910885 E41 [facility] r weights and PO intake History of malignant neoplasm of ovary 281458761 Z85.43 added to PMH [id number] KEILA Sepulveda [facility] [address] [place] [address] 09/01/2019 07:19:48 09/04/2019 15:23:56 Tuberculosis [id number] A15.0 see HPIfollowe d by ID of note in hospital case discussed with dept of public health ID and determined it was safe to take patient off airborne precaution s as she had been treated for > 14 daysf/u with [facility] clinic [facility] nue current Ab courseprob ioticupdat e ID with change in presentati onmonitor respirator y function Healthcare associated bacterial pneumonia 632989468 Y95 see HPIcomplet ed vanco and zosynsee above Asthenia 28866357 R53.1 PT OT eval and treatmonit or fall risk Severe protein-calorie malnutrition (Bell: less than 60 percent of standard weight) 209556416 E41 carrying dx from hospitaldi etary eval pt has gained 2 lbs in the past week according to weekly weight data, has good reported appetite. monitor weights and PO intake [id number] Nichelle Dooley NP [address] [place] [address] 09/08/2019 07:58:08 09/17/2019 14:56:26 Tuberculosis 28245702 A15.0 see Jalen garibay by ID of note in hospital [...] respirator y function Healthcare associated bacterial pneumonia 997301295 Y95 see HPIcomplet ed vanco and zosynsee above Asthenia 71869712 R53.1 PT OT eval and treatmonit or fall risk Severe protein-calorie malnutrition (Bell: less than 60 percent of standard weight) 420014799 E41 carrying dx from hospitaldi etary eval pt has good reported appetite. monitor weights and PO intake [id number] Nichelle Dooley NP [address] [place] [address] 09/15/2019 07:35:21 09/23/2019 11:38:11 Tuberculosis 93001516 A15.0 see Jalen garibay by TB clinic [...] respirator y function Healthcare associated bacterial pneumonia 728888176 Y95 see HPIcomplet ed vanco and zosynsee above Asthenia 89555682 R53.1 PT OT eval and treatmonit or fall risk Severe protein-calorie malnutrition (Bell: less than 60 percent of standard weight) 061512537 E41 carrying dx from hospitaldi etary eval- pt now on ensures pt has good reported appetite. monitor weights [place] intake [id number] Nichelle Dooley NP KAREN CONTEH [address] [place] [phone] 09/22/2019 09:39:42 09/29/2019 09:21:51 Tuberculosis [id number] A15.0 see HPIfollchristian d by TB clinic [...] O2 orders monitor respirator y function Asthenia 40807186 R53.1 Pt has been DCd from PT- she has reached her baseline, only walking about 30 ft with walker, varies with transfers. monitor fall risk Severe protein-calorie malnutrition (Bell: less than 60 percent of standard weight) 478338628 E41 carrying dx from hospital has lost about 9lbs in the past month pt on ensures tid will increase mirtazapin e to 15mg qd today monitor ?weight loss due to ovarian cancer History of malignant neoplasm of ovary 319905970 Z85.43 added to PMH Per family the pt had one day of treatment for this and then never followed up with this- she refused care. Mixed anxi ety and depressive disorder 447165759 F41.8 will order psych eval today monitor mood [id number] Nichelle Dooley NP [facility] [address] [place] [phone] 09/28/2019 07:22:29 10/01/2019 14:27:45 Tuberculosis 24243933 A15.0 see HPI stable. followed by TB [...] O2 orders monitor respirator y function Asthenia 11023652 R53.1 Pt has been DCd from PT- she has reached her baseline, only walking about 30 ft with walker, varies with transfers. monitor fall risk Severe protein-calorie malnutrition (Bell: less than 60 percent of standard weight) 963264304 E41 carrying dx from hospital has lost over 10lbs since her admission, however she appears to have leveled out. pt on ensures tid mirtazapin e increased to 15mg qd last week continue to monitor ?weight loss due to ovarian cancer History of malignant neoplasm of ovary 260909338 Z85.43 added to PMH Per family the pt had one day of treatment for this and then never followed up with this- she refused care. Mixed anxi ety and depressive disorder 553298737 F41.8 awaiting psych eval monitor mood [id number] KEILA Sepulveda [address] [place] [address] 10/08/2019 07:24:07 10/12/2019 16:27:09 Tuberculosis [id number] A15.0 see HPI stable. followed by TB [...] less than 60 percent of standard weight) 968932817 E41 carrying dx from hospital has lost over 7lbs since her admission, appears to be stable at this time.pt on ensures tid mirtazapin e 15mg qd continue to monitor History of malignant neoplasm of ovary 129742981 Z85.43 added to PMH Per family the pt had one day of treatment for this and then never followed up with this- she refused care. Mixed anxi ety and depressive disorder 809354922 F41.8 pt recently seen by [facility], no consult notes in chart yet monitor mood [id number] KEILA Sepulveda [address] [place] [phone] 10/12/2019 08:06:04 10/16/2019 13:50:57 Tuberculosis 54102379 A15.0 see HPI stable. followed by TB [...] less than 60 percent of standard weight) 990173487 E41 carrying dx from hospital pt on ensures tid mirtazapin e 15mg qd pt had initially lost weight, now improving continue to monitor Mixed anxi ety and depressive disorder 575148392 F41.8 pt recently seen by [facility], awaiting consult notes. monitor mood History of malignant neoplasm of ovary 829354563 Z85.43 added to PMH Per family the pt had one day of treatment for this and then never followed up with this- she refused care. [id number] KEILA Sepulveda [address] [place] [address] [place] [address] 10/19/2019 08:10:14 10/22/2019 14:29:13 Tuberculosis 92471903 A15.0 see HPI stable. followed by TB [...] less than 60 percent of standard weight) 262730468 E41 carrying dx from hospital pt on ensures tid mirtazapin e 15mg qd pt had initially lost weight, now improving continue to monitor Mixed anxi ety and depressive disorder 352648750 F41.8 mirtazapin e 15mg qd monitor mood psych following History of malignant neoplasm of ovary 864881760 Z85.43 added to PMH Per family the pt had one day of treatment for this and then never followed up with this- she refused care. [id number] MD KAREN Cooper [address] [place] [address] 11/18/2019 15:07:44 11/22/2019 15:31:49 Tuberculosis 80311778 A15.0 followed by ID [facility] [facility] [place] [facility] current Ab courseupda te ID with change in presentati onmonitor respirator y functioncu rrently stable at baseline Nausea and vomiting 1692 1999 R11.2 appears secondary to medication administra tibooll have patient take zofran priormonit or for sx control [id number] KEILA Sepulveda [address] [place] [address] 12/01/2019 12:14:48 12/11/2019 14:40:43 Tuberculosis 52337834 A15.0 followed by ID seen by tb [...] less than 60 percent of standard weight) 514172314 E41 carrying dx from hospital pt on ensures tid mirtazapin e 15mg qd pt continues to have weight loss recent DC of abx as above may be helpful, as these were likely causing her some nausea continue to monitor weights bi-weekly for 4 weeks Mixed anxi ety and depressive disorder 854405949 F41.8 mirtazapin e 15mg qd monitor mood psych following History of malignant neoplasm of ovary 851815210 Z85.43 added to PMH Per family the pt had one day of treatment for this and then never followed up with this- she refused care. [id number] Nichelle Dooley NP KAREN CONTEH [address] [place] [address] [place] [address] 12/29/2019 12:37:57 01/01/2020 15:52:34 Cough 16401587 R05 With associated chills, fatigue, body aches. Will check for flu and resp viral panel, cbc/cmp of note there is a resident on the floor +for flu A encourage fluids supportive care continue to monitor [id number] Nichelle Dooley NP KAREN CONTEH [address] [place] [address] [place] [address] 01/15/2020 14:07:52 01/21/2020 13:07:58 Tuberculosis 09548203 A15.0 followed by ID continues on multiple [...] on site prn currently stable at baseline [id number] Kianna Alvarez MD [address] [address] 01/22/2020 17:32:59 01/28/2020 18:46:52 Tuberculosis 52714267 A15.0 She is on ethambutol 800 mg [...] and pulmonary as able. Nausea and vomiting 1691999 R11.2 Sxs continue intermitte ntly, now that back on Tb meds. Continue with zofran q 6 hrs prn Monitor for sx control Severe protein-calorie malnutrition (Bell: less than 60 percent of standard weight) 515485334 E41 She has lost 20# since here. BMI still in nl. range. Was given this dx in the hospital. Continue ensure TID and mirtazapin e 15 mg qd Continue to monitor weights Mixed anxi ety and depressive disorder 305482002 F41.8 Mood good today. Continue mirtazapin e 15 mg qd. monitor mood Follow with NEG as able. History of malignant neoplasm of ovary 011975069 Z85.43 Hx of. Had DYLLAN/BSO Per family the pt had one day of treatment for this and then never followed up with this- she refused care. Chronic ob structive pulmonary disease 31422381 J43.8 Likely with underlying COPD. Continue meds as above. Will need full PFTs when able. [id number] KEILA BRASHER [address] [place] [phone] 03/18/2020 09:19:47 03/22/2020 10:40:26 Chronic obstructive pulmonary disease 68713799 J44.9 monitor for any sob, O2 if needed Mixed anxi ety and depressive disorder 989182690 F41.8 Continue mirtazapin e 15 mg qd. monitor mood Follow with NEG as able. Severe protein-calorie malnutrition (Bell: less than 60 percent of standard weight) 399295873 E43 Continue ensure TID and mirtazapin e 15 mg qd Continue to monitor weights Tuberculosis 13534573 A1 8.89 continue ethambutol 800 mg qd, isoniazid 300 mg qd and pyrazinami de 1000 mg qd Nebs all transition ed to inhalers, now on combivent QID, symbicort 80/4.5 two puffs BID and proair with spacer q 4h prn. Continue O2 prn to maintain sats >90% Monitor respirator y function F/U with resp therapist and pulmonary as able. [id number] KEILA BRASHER [address] [place] [address] 04/11/2020 10:32:37 04/19/2020 15:35:04 Mixed anxiety and depressive disorder 468378052 F41.8 Continue mirtazapin e 15 mg qd. monitor mood Follow with NEG as able. [id number] MD KAREN Morales [address] [address] [place] [address] 05/20/2020 06:57:19 05/24/2020 10:36:19 Chronic obstructive pulmonary disease 91133742 J44.9 Symbicort 4.5-80: 2 puffs bidCombive nt respimat 20-100: one puff tidalbuter ol HFA 1 puff q4h prn will monitor History of malignant neoplasm of ovary 979368375 Z85.43 s/p DYLLAN, SBO; has refused further treatment Mixed anxi ety and depressive disorder 334572788 F41.8 mirtazapin e 15 mg at hswill monitor Tuberculosis 73843754 A1 8.89 fu [facility] clinic Hypothyroidism 48759544 E03.8 levothyrox ine 75 mcg dailywill monitor [id number] KEILA BRASHER [address] [place] [address] 07/13/2020 10:24:49 07/15/2020 14:24:57 Chronic obstructive pulmonary disease 20635519 J44.9 monitor for any sob, O2 if needed symbicort 80/4.5 q12 hr combivent 20/100 tid flonase daily Healthcare associated bacterial pneumonia 072317851 J15.9 recovered Hypothyroidism 87481100 E03.9 levothyrox ine 75 mcg daily will monitor Mixed anxi ety and depressive disorder 967562525 F41.8 mirtazapin e 15 mg qd. monitor mood Follow with NEG as able. Tuberculosis 57405790 A1 8.89 combivent tid, symbicort 80/4.5 two puffs BID proair with spacer q 4h prn. Continue O2 prn to maintain sats >90% Monitor respirator y function F/U with resp therapist and pulmonary as able. Severe protein-calorie malnutrition (Bell: less than 60 percent of standard weight) 445592176 E43 ensure TID and mirtazapin e 15 mg qd thiamine 100 mg daily B6 100 daily Continue to monitor weights [id number] SON GRIPPIN, BOX ESTIMATOR [address] [address] 08/23/2020 11:08:00 08/25/2020 13:34:50 Chronic obstructive pulmonary disease 52114535 J44.9 monitor for any sob, O2 if needed symbicort 80/4.5 q12 hr combivent 20/100 tid flonase daily SARS-CoV-2 192291542 U07 .1 encourage po intake O2 prn consider IVF if she becomes anorexic [id number] SON LEIJA NP [address] [address] 08/29/2020 12:18:09 08/31/2020 15:39:28 Chronic obstructive pulmonary disease 15141999 J44.9 monitor for any sob, O2 if needed symbicort 80/4.5 q12 hr combivent 20/100 tid flonase daily loratadine 10mg daily Healthcare associated bacterial pneumonia 191196705 J15.9 recovered History of malignant neoplasm of ovary 056934824 Z85.43 DYLLAN SBO no further treatment Hypothyroidism 20471347 E03.9 levothyrox ine 75 mcg daily will monitor Mediastinal emphysema 16 220837 J98.2 2019 pneumomedi astinum related to infection/ bronchosco py no interventi on needed if resp sx develop will repeat cxr/CT chest Mixed anxi ety and depressive disorder 329652628 F41.8 mirtazapin e 15 mg qd. monitor mood Follow with NEG as able. SARS-CoV-2 835444016 U07 .1 encourage po intake O2 prn consider IVF if she becomes anorexic Severe protein-calorie malnutrition (Bell: less than 60 percent of standard weight) 991003817 E43 ensure TID and mirtazapin e 15 mg qd thiamine 100 mg daily B6 100 daily Continue to monitor weights Tuberculosis 60300586 A1 8.89 combivent tid, symbicort 80/4.5 two puffs BID proair with spacer q 4h prn. Continue O2 prn to maintain sats >90% Monitor respirator y function F/U with resp therapist and pulmonary as able. [id number] SON LEIJA NP [address] [address] 08/30/2020 08:12:16 09/02/2020 10:34:19 SARS-CoV-2 555977823 U07.1 encourage po intake O2 prn consider IVF if she becomes anorexic [id number] SON LEIJA NP [address] [address] 08/31/2020 11:03:06 09/02/2020 11:07:24 SARS-CoV-2 860935889 U07.1 08/16, 08/23 positive encourage po intake O2 prn consider IVF if she becomes anorexic [id number] SON LEIJA NP [address] [address] 09/01/2020 09:30:51 09/06/2020 10:25:57 SARS-CoV-2 411399873 U07.1 08/16, 08/23 positive encourage po intake O2 prn consider IVF if she becomes anorexic [id number] SON LEIJA NP [address] [address] 09/02/2020 12:59:16 09/06/2020 10:40:27 SARS-CoV-2 749840692 U07.1 08/16, 08/23 positive, 08/29 negative encourage po intake O2 prn consider IVF if she becomes anorexic [id number] Toma Alvarado MD [address] [address] 09/23/2020 06:10:55 09/27/2020 11:42:12 Chronic obstructive pulmonary disease 06277095 J41.0 Advair 250-50: one puff bidCombive nt Respimat 20-100: one puff tidalbuter ol HFA 1 puff q4h prn will monitor History of malignant neoplasm of ovary 934285869 Z85.43 s/p DYLLAN, SBO; has refused further treatment Hypothyroidism 99310843 E03.8 levothyrox ine 75 mcg dailywill monitor Mixed anxi ety and depressive disorder 116958207 F41.8 mirtazapin e 15 mg at hswill monitor SARS-CoV-2 860002303 U07 .1 recoveredw ill continue to monitor [id number] SON LEIJA NP [address] [address] 5 11/15/2020 13:47:46 11/16/2020 14:55:19 Chronic obstructive pulmonary disease [id number] J44.9 monitor for any sob, O2 if needed advair 250/50 daily combivent 20/100 tid flonase daily albuterol prn loratadine 10mg daily Healthcare associated bacterial pneumonia [id number] J15.9 recovered History of malignant neoplasm of ovary 804552925 Z85.43 DYLLAN SBO no further treatment Hypothyroidism 72630326 E03.9 levothyrox ine 75 mcg daily will monitor Mediastinal emphysema 16 291470 J98.2 2019 pneumomedi astinum related to infection/ bronchosco py no interventi on needed if resp sx develop will repeat cxr/CT chest Mixed anxi ety and depressive disorder 053373398 F41.8 mirtazapin e 15 mg qd. monitor mood Follow with NEG as able. SARS-CoV-2 676416354 U07 .1 recovered 08/16, 08/23 positive, 08/29 negative encourage po intake O2 prn consider IVF if she becomes anorexic Severe protein-calorie malnutrition (Bell: less than 60 percent of standard weight) 670775679 E43 ensure TID and mirtazapin e 15 mg qd thiamine 100 mg daily B6 100 daily Continue to monitor weights Tuberculosis 92826803 A1 8.89 combivent tid, advair daily proair with spacer q 4h prn. Continue O2 prn to maintain sats >90% Monitor respirator y function F/U with resp therapist and pulmonary as able. Pain in right knee 02894 20168 60287 M25.561 lidoderm patch right kneediclof enac gel bidtylenol 650 mg q6hr prn [id number] MD KAREN Morales [address] [facility] [place] [address] 01/06/2021 07:13:09 01/10/2021 10:35:09 Chronic obstructive pulmonary disease 10939913 J41.0 Advair 250-50: one puff bidCombive nt Respimat 20-100: one puff tidalbuter ol HFA 1 puff q4h prn will monitor History of malignant neoplasm of ovary 678612692 Z85.43 s/p DYLLAN, SBO; has refused further treatment Hypothyroidism 99980926 E03.8 levothyrox ine 75 mcg dailywill monitor Mixed anxi ety and depressive disorder 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 mirtazapin e 15 mg at hswill monitor SARS-CoV-2 959115915 U07 .1 diagnosed 09/02 recovered will continue to monitor [id number] KEILA BRASHER W[address] [place] [phone] 5 03/01/2021 08:04:33 03/03/2021 13:38:48 Chronic obstructive pulmonary disease 93986937 J44.9 monitor for any sob, O2 if needed advair 250/50 bid combivent 20/100 tid flonase daily albuterol prn loratadine 10mg daily History of malignant neoplasm of ovary 654947954 Z85.43 DYLLAN SBO no further treatment Hypothyroidism 70401095 E03.9 levothyrox ine 75 mcg daily will monitor 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 monitor mood Follow with NEG as able. Pain in right knee 47842 22397 64154 M25.561 lidoderm patch right kneediclof enac gel bidtylenol 650 mg q6hr prn Severe protein-calorie malnutrition (Bell: less than 60 percent of standard weight) 631420687 E43 ensure TID mirtazapi ne 15 mg qd thiamine 100 mg daily B6 100 daily Continue to monitor weights Tuberculosis 44956499 A1 8.89 combivent tid, advair 250/50 bid proair with spacer q 4h prn. Continue O2 prn to maintain sats >90% Monitor respirator y function F/U with resp therapist and pulmonary as able. [id number] MD KAREN Morales [address] [place] [address] [place] [address] 04/21/2021 06:57:11 05/02/2021 14:03:31 Chronic obstructive pulmonary disease 67950554 J41.0 Advair 250-50: one puff bidCombive nt Respimat 20-100: one puff tidalbuter ol HFA 1 puff q4h prnwill monitor History of malignant neoplasm of ovary 906269520 Z85.43 s/p DYLLAN, SBOhas refused further treatment Hypothyroidism 93034700 E03.8 levothyrox ine 75 mcg dailywill monitor Mixed anxi ety and depressive disorder 656792338 F41.8 mirtazapin e 15 mg at hswill monitor SARS-CoV-2 768561979 U07 .1 diagnosed 09/02 recovered will continue to monitor Gastroesop hageal reflux disease without esophagitis 133582174 K21.9 famotidine 20 mg at hswill monitor Acute conjunctivitis 537 52657 H10.011 improvingc omplete course of polytrim solutionwi ll monitor [id number] KEILA BRASHER [address] [place] [phone] 5 06/14/2021 11:54:10 06/16/2021 10:06:14 Chronic obstructive pulmonary disease 87139733 J41.0 monitor for any sob, O2 if needed advair 250/50 bid combivent 20/100 tid flonase daily albuterol prn loratadine 10mg daily Hypothyroidism 44075948 E03.8 levothyrox ine 75 mcg daily will monitor Mixed anxi ety and depressive disorder 496168795 F41.8 mirtazapin e 15 mg qd. monitor mood Follow with NEG as able. Pain in right knee 00159 55718 89829 M25.561 lidoderm patch right kneediclof enac gel bidtylenol 650 mg q6hr prn Tuberculosis 05400999 A1 8.89 combivent tid, advair 250/50 bid proair with spacer q 4h prn. O2 prn to maintain sats >90% Monitor respirator y function F/U with resp therapist and pulmonary as able. Gastroesop hageal reflux disease without esophagitis 412598809 K21.9 pepcid 20 mg daily Vitamin deficiency 32979 002 E56.9 mvi dailythiam ine 100 mg dailyB6 daily [id number] MD KAERN Morales [address] [place] [phone] 5 08/23/2021 06:02:03 08/25/2021 11:44:21 Chronic obstructive pulmonary disease 26818412 J41.0 Advair 250-50: one puff bidCombive nt Respimat 20-100: one puff tidalbuter ol HFA 1 puff q4h prnwill monitor Gastroesop hageal reflux disease without esophagitis 960751618 K21.9 famotidine 20 mg at hswill monitor Hypothyroidism 51415144 E03.8 levothyrox ine 75 mcg dailywill monitor History of malignant neoplasm of ovary 999733658 Z85.43 s/p DYLLAN, SBOhas refused further treatment Mixed anxi ety and depressive disorder 499234320 F41.8 mirtazapin e 15 mg at hswill monitor Vitamin deficiency 29410 002 E56.8 pyridoxine 100 mg dailythiam ine 100 mg dailyMVI dailywill monitor Osteoarthritis 521764578 M17.11 APAP 650 mg q6h prndiclofe nac topical gel to right knee prnBengay cream to right knee q8h prnlidocai ne patch 4% to right knee dailywill monitor [id number] KEILA BRASHER [address] [place] [address] 10/19/2021 12:58:57 10/24/2021 11:46:50 Chronic obstructive pulmonary disease 96818479 J41.0 monitor for any sob, O2 if needed advair 250/50 bid combivent 20/100 tid flonase daily albuterol prn loratadine 10mg daily Hypothyroidism 56481975 E03.8 levothyrox ine 75 mcg daily will monitor Mixed anxi ety and depressive disorder 254373202 F41.8 mirtazapin e 15 mg qd. monitor mood Follow with NEG as able. Pain in right knee 92121 14366 34877 M25.561 lidoderm patch right kneediclof enac gel bidtylenol 650 mg q6hr prn Tuberculosis 91630818 A1 8.89 combivent tid, advair 250/50 bid proair with spacer q 4h prn. O2 prn to maintain sats >90% Monitor respirator y function F/U with resp therapist and pulmonary as able. Gastroesop hageal reflux disease without esophagitis 173860436 K21.9 pepcid 20 mg daily Vitamin deficiency 76839 002 E56.9 mvi dailythiam ine 100 mg dailyB6 daily [id number] SON LEIJA NP [address] [address] 11/09/2021 09:05:30 11/15/2021 08:55:12 Chronic obstructive pulmonary disease 03977477 J41.0 monitor for any sob, O2 if needed advair 250/50 bid combivent 20/100 tid flonase daily albuterol prn loratadine 10mg daily Pain in right knee 27222 18555 79544 M25.561 lidoderm patch right kneediclof enac gel bidtylenol 650 mg q6hr prn [id number] SON LEIJA NP [address] [address] 11/10/2021 10:03:11 11/15/2021 10:48:07 SARS-CoV-2 876317239 U07.1 11/08 covid positive, asymptomat icPatient covid positiveco ntinue supportive caremonito r PO intake and need for supplement al S0dayxqaz need for adjuvent therapyto ED for acute decompensa tion [id number] SON LEIJA NP [address] [address] 11/13/2021 12:31:35 11/15/2021 11:47:51 SARS-CoV-2 565215660 U07.1 11/08 covid positive, asymptomat ic-recover ed by datePatien t covid positive continue supportive care monitor PO intake and need for supplement al O2 monitor need for adjuvent therapy to ED for acute decompensa tion [id number] Toma Alvarado MD [address] [address] 12/22/2021 07:56:46 12/27/2021 16:02:07 Chronic obstructive pulmonary disease 84664619 J41.0 Advair 250-50: one puff bidCombive nt Respimat 20-100: one puff tidalbuter ol HFA 1 puff q4h prnwill monitor Gastroesop hageal reflux disease without esophagitis 098217976 K21.9 famotidine 20 mg at hswill monitor Hypothyroidism 41190531 E03.8 levothyrox ine 75 mcg dailywill monitor Mixed anxi ety and depressive disorder 041437193 F41.8 mirtazapin e 15 mg at hswill monitor SARS-CoV-2 360070375 U07 .1 tested positive 11/08/21asy mptomatic coursereco shelli will continue to monitor [id number] SON LEIJA NP [address] [address] 01/19/2022 08:44:18 01/23/2022 11:01:49 Chronic obstructive pulmonary disease 03773107 J41.0 monitor for any sob, O2 if needed advair 250/50 bid combivent 20/100 tid flonase daily albuterol prn loratadine 10mg daily Hypothyroidism 88516741 E03.8 levothyrox ine 75 mcg daily will monitor Mixed anxi ety and depressive disorder 278848756 F41.8 mirtazapin e 15 mg qd. monitor mood Follow with NEG as able. Pain in right knee 19244 16419 75071 M25.561 lidoderm patch right kneediclof enac gel bidtylenol 650 mg q6hr prn Tuberculosis 09433283 A1 8.89 combivent tid, advair 250/50 bid proair with spacer q 4h prn. O2 prn to maintain sats >90% Monitor respirator y function F/U with resp therapist and pulmonary as able. Gastroesop hageal reflux disease without esophagitis 768483997 K21.9 pepcid 20 mg daily Vitamin deficiency 64809 002 E56.9 mvi dailythiam ine 100 mg dailyB6 daily [id number] SON LEIJA NP [address] [address] 02/16/2022 11:50:24 02/20/2022 12:03:24 Chronic obstructive pulmonary disease 21457868 J41.0 monitor for any sob, O2 if needed advair 250/50 bid combivent 20/100 tid flonase daily albuterol prn loratadine 10mg daily Hypothyroidism 35421113 E03.8 levothyrox ine 75 mcg daily will monitor Mixed anxi ety and depressive disorder 166486077 F41.8 mirtazapin e 15 mg qd. monitor mood Follow with NEG as able. Pain in right knee 16097 01111 66593 M25.561 lidoderm patch right kneediclof enac gel bidtylenol 650 mg q6hr prn Tuberculosis 96965944 A1 8.89 combivent tid, advair 250/50 bid proair with spacer q 4h prn. O2 prn to maintain sats >90% Monitor respirator y function F/U with resp therapist and pulmonary as able. Gastroesop hageal reflux disease without esophagitis 467221301 K21.9 pepcid 20 mg daily Vitamin deficiency 34880 002 E56.9 mvi dailythiam ine 100 mg dailyB6 daily [id number] CHASE Eduardo [address] [address] 03/08/2022 11:23:24 03/13/2022 16:32:13 Cellulitis of finger of right hand 6922633769 0048513 L03.011 bacitracin cream apply qd till healedmoni tor. [id number] Toma Alvarado MD [address] [address] 03/30/2022 08:39:42 04/03/2022 11:43:48 Chronic obstructive pulmonary disease 05349970 J41.0 Advair 250-50: one puff bidCombive nt Respimat 20-100: one puff tidalbuter ol HFA 1 puff q4h prnwill monitor Gastroesop hageal reflux disease without esophagitis 177507304 K21.9 famotidine 20 mg at hswill monitor Hypothyroidism 24705430 E03.8 levothyrox ine 75 mcg dailywill monitor Mixed anxi ety and depressive disorder 741115653 F41.8 mirtazapin e 15 mg at hswill monitor Vitamin deficiency 95140 002 E56.9 pyridoxine 100 mg dailythiam ine 100 mg dailyMVI dailywill monitor Osteoarthritis 135057212 M17.11 APAP 650 mg q6h prndiclofe nac topical gel to right knee bid prnBengay cream to right knee q8h prnlidocai ne patch 4% to right knee dailywill monitor [id number] SON LEIJA NP [address] [address] 05/23/2022 13:08:08 05/29/2022 16:22:19 Chronic obstructive pulmonary disease 54751251 J41.0 Advair 250-50: one puff bidCombive nt Respimat 20-100: one puff tidalbuter ol HFA 1 puff q4h prnwill monitor Gastroesop hageal reflux disease without esophagitis 041841636 K21.9 famotidine 20 mg at hswill monitor Hypothyroidism 14307140 E03.8 levothyrox ine 75 mcg dailywill monitor Mixed anxi ety and depressive disorder 478440103 F41.8 mirtazapin e 15 mg at hswill monitor Vitamin deficiency 88544 002 E56.9 pyridoxine 100 mg dailythiam ine 100 mg dailyMVI dailywill monitor Osteoarthritis 501045601 M17.11 APAP 650 mg q6h prndiclofe nac topical gel to right knee bid prnBengay cream to right knee q8h prnlidocai ne patch 4% to right knee dailywill monitor Tuberculosis 28025075 A1 8.89 combivent tid, advair 250/50 bid proair with spacer q 4h prn. O2 prn to maintain sats >90% Monitor respirator y function F/U with resp therapist and pulmonary as able. [id number] MD KAREN Morales [address] [place] [phone] 07/13/2022 07:10:41 07/17/2022 14:08:46 Chronic obstructive pulmonary disease 15270701 J41.0 Advair 250-50: one puff bidCombive nt Respimat 20-100: one puff tidalbuter ol HFA 1 puff q4h prnwill monitor Hypothyroidism 27647403 E03.8 levothyrox ine 75 mcg dailywill monitor Mixed anxi ety and depressive disorder 508733121 F41.8 mirtazapin e 15 mg at hswill monitor Gastroesop hageal reflux disease without esophagitis 103141589 K21.9 famotidine 20 mg at hswill monitor History of malignant neoplasm of ovary 656369061 Z85.43 s/p DYLLAN, SBOhas refused further treatment [id number] SON GRIPPIN, BOX ESTIMATOR KAREN [address] [address] 09/05/2022 17:06:29 09/11/2022 14:11:08 Chronic obstructive pulmonary disease 76594416 J41.0 Advair 250-50: one puff bidCombive nt Respimat 20-100: one puff tidalbuter ol HFA 1 puff q4h prnwill monitor Hypothyroidism 02750891 E03.8 levothyrox ine 75 mcg dailywill monitor Mixed anxi ety and depressive disorder 590520267 F41.8 mirtazapin e 15 mg at hswill monitor Gastroesop hageal reflux disease without esophagitis 191576607 K21.9 famotidine 20 mg at hswill monitor Tuberculosis 15267793 A1 8.89 combivent tid, advair 250/50 bid proair with spacer q 4h prn. O2 prn to maintain sats >90% Monitor respirator y function F/U with resp therapist and pulmonary as able. Toma Alvarado MD [address] [address] 12/07/2022 10:38:11 12/11/2022 08:03:41 Chronic obstructive pulmonary disease 48199932 J41.0 Advair 250-50: one puff bidCombive nt Respimat 20-100: one puff tidalbuter ol HFA 1 puff q4h prnwill monitor Mixed anxi ety and depressive disorder 546125003 F41.8 mirtazapin e 15 mg at hswill monitor Gastroesop hageal reflux disease without esophagitis 151573150 K21.9 famotidine 20 mg at hswill monitor Hypothyroidism 74439187 E03.8 levothyrox ine 75 mcg dailywill monitor Chronic pain 26791932 G8 9.29 diclofenac gel to right knee bid prnlidocai ne patch to right knee dailyAPAP 650 mg q6h prnwill monitor [id number] SON LEIJA NP [address] [address] 01/28/2023 14:21:07 01/31/2023 15:22:09 Chronic obstructive pulmonary disease 86994382 J41.0 Advair 250-50: one puff bidCombive nt Respimat 20-100: one puff tidalbuter ol HFA 1 puff q4h prnwill monitor Mixed anxi ety and depressive disorder 883210386 F41.8 mirtazapin e 15 mg at hswill monitor Gastroesop hageal reflux disease without esophagitis 420968568 K21.9 famotidine 20 mg at hswill monitor Hypothyroidism 81152040 E03.8 levothyrox ine 75 mcg dailywill monitor Chronic pain 48981429 G8 9.29 diclofenac gel to right knee bid prnlidocai ne patch to right knee dailyAPAP 650 mg q6h prnwill monitor [id number] SON LEIJA NP [address] [address] 02/15/2023 13:27:41 02/20/2023 16:52:34 Chronic obstructive pulmonary disease 12227240 J41.0 Advair 250-50: one puff bidCombive nt Respimat 20-100: one puff tidalbuter ol HFA 1 puff q4h prnwill monitor Mixed anxi ety and depressive disorder 235193979 F41.8 mirtazapin e 15 mg at hswill monitor Gastroesop hageal reflux disease without esophagitis 786670342 K21.9 famotidine 20 mg at hswill monitor Hypothyroidism 04084817 E03.8 levothyrox ine 75 mcg dailywill monitor Chronic pain 88518652 G8 9.29 diclofenac gel to right knee bid prnlidocai ne patch to right knee dailyAPAP 650 mg q6h prnwill monitor Vitamin deficiency 16976 002 E56.9 pyridoxine 100 mg dailythiam ine 100 mg dailyMVI dailywill monitor [id number] MD KAREN Pope WERO [address] [place] [address] 5 03/28/2023 13:20:05 04/11/2023 13:24:13 Chronic obstructive pulmonary disease 78545682 J41.0 No current sxs.Contin ue Advair 250/50 BID, Combivent Respimat 1 puff TID and albuterol HFA 1 puff q 4 hrs prnMonitor resp. status. Mixed anxi ety and depressive disorder 725455779 F41.8 Mood good today.Cont inue mirtazapin e 15 mg at hsMonitor moodPsych follows, no GDR recommende d. Gastroesop hageal reflux disease without esophagitis 058466441 K21.9 Under good controlCon tinue famotidine 20 mg at hsMonitor for sxs Hypothyroidism 33604678 E03.8 Last TSH 02/2021 was WNLContinu e levothyrox ine 75 mcg dailyMonit or TSH yearly, will order with next labs. Chronic pain 36298160 G8 9.29 She says pain is adequately controlled .Continue diclofenac gel to right knee BID prn, lidocaine patch to right knee daily and APAP 650 mg q 6 hrs prnMonitor sxs. Vitamin deficiency 39515 002 E56.8 Continue pyridoxine 100 mg daily, thiamine 100 mg daily, and MVI dailyNo monitoring needed. [id number] KEILA BRASHER WERO [address] [place] [phone] 5 04/05/2023 13:30:53 04/11/2023 13:56:07 Chronic obstructive pulmonary disease 92115399 J41.0 Advair 250-50: one puff bidCombive nt Respimat 20-100: one puff tidalbuter ol HFA 1 puff q4h prnwill monitor Mixed anxi ety and depressive disorder 234767038 F41.8 mirtazapin e 15 mg at hswill monitor [id number] SON LEIJA NP [address] [address] 05/17/2023 10:17:44 05/21/2023 16:07:38 Chronic obstructive pulmonary disease 36997272 J41.0 Advair 250-50: one puff bidCombive nt Respimat 20-100: one puff tidalbuter ol HFA 1 puff q4h prnwill monitor Mixed anxi ety and depressive disorder 869617725 F41.8 mirtazapin e 15 mg at hswill monitor Gastroesop hageal reflux disease without esophagitis 105083880 K21.9 famotidine 20 mg at hswill monitor Hypothyroidism 76743779 E03.8 levothyrox ine 75 mcg dailywill monitor Chronic pain 60817509 G8 9.29 diclofenac gel to right knee bid prnlidocai ne patch to right knee dailyAPAP 650 mg q6h prnwill monitor Vitamin deficiency 39399 002 E56.9 pyridoxine 100 mg dailythiam ine 100 mg dailyMVI dailywill monitor [id number] SON LEIJA NP KAREN CONTEH [address] [place] [address] [place] [address] 07/08/2023 13:04:17 07/09/2023 20:04:53 Pain of left knee region 4941542610 28215 M25.562 tylenol prnxray of left kneePT OT eval and treat prn [id number] Kianna Alvarez MD [facility] [address] [place] [address] 08/16/2023 13:59:50 08/20/2023 11:12:11 Pain of left knee region 0704365715 74577 M25.562 Says it's much better.Con tinue diclofenac gel 4 gms BID and APAP 650 mg q 6 hrs prn.Monito r sxs. Chronic ob structive pulmonary disease 75356138 J41.0 Continues at mild baseline.C ontinue Advair 250/50 BID, Combivent Respimat 1 puff TID and albuterol HFA 1 puff q 4 hrs prnMonitor resp. status. Mixed anxi ety and depressive disorder 584822783 F41.8 Mood remains good at most times.Cont inue mirtazapin e 15 mg qhsMonitor moodPsych continues to follow intermitte ntly, no GDR recommende d. Gastroesop hageal reflux disease without esophagitis 938406032 K21.9 No current sxs.Contin ue famotidine 20 mg qhsMonitor for sxs Hypothyroidism 27320849 E03.8 Last TSH was in ont inue levothyrox ine 75 mcg dailyMonit or TSH yearly, will order with next labs. Chronic pain 20267599 G8 9.29 As above.Also gets lidocaine patch to right knee daily.Elsy tor [id number] SON LEIJA NP KAREN CONTEH [address] [place] [address] [place] [address] 10/09/2023 13:25:53 10/22/2023 10:00:48 Chronic obstructive pulmonary disease 88824244 J41.0 Advair 250-50: one puff bidCombive nt Respimat 20-100: one puff tidalbuter ol HFA 1 puff q4h prnwill monitor Mixed anxi ety and depressive disorder 775364332 F41.8 mirtazapin e 15 mg at hswill monitor Gastroesop hageal reflux disease without esophagitis 667436271 K21.9 famotidine 20 mg at hswill monitor Hypothyroidism 03460038 E03.8 levothyrox ine 75 mcg dailywill monitor Chronic pain 43141887 G8 9.29 diclofenac gel to right knee bid prnlidocai ne patch to right knee dailyAPAP 650 mg q6h prnwill monitor Vitamin deficiency 39481 002 E56.9 pyridoxine 100 mg dailythiam ine 100 mg dailyMVI dailywill monitor [id number] CHASE CHE [address] [place] [address] 10/23/2023 11:46:55 10/30/2023 12:50:00 Contact dermatitis 45708967 L25.9 see hpihydroco rtisone 1% bid for 5 days and re evalPatien t encouraged to avoid scratching or touching affected areanursin g to offer prn tylenol for discomfort . [id number] MD KAREN Pope [address] [place] [phone] 12/10/2023 16:27:11 01/13/2024 15:10:49 Pain of left knee region 4331900177 61150 M25.562 Continues to do well with diclofenac gel 4 gms BID and APAP 650 mg q 6 hrs prn.Monito r sxs. Chronic ob structive pulmonary disease 72960263 J43.8 No recent exacerbati ons.Contin ue Advair 250/50 BID, Combivent Respimat 1 puff TID and albuterol HFA 1 puff q 4 hrs prnMonitor resp. status. Mixed anxi ety and depressive disorder 619016438 F41.8 Mood is stable, enjoys activities .Continue mirtazapin e 15 mg qhsMonitor moodPsych follows, last seen on 12/15 with no rec for med changes. Gastroesop hageal reflux disease without esophagitis 891286584 K21.9 No current sxs.Contin ue famotidine 20 mg qhsMonitor for sxs Hypothyroidism 80676757 E03.8 Last TSH in 08/2023 was sl. low at 0.17, no FT4 checked and no recheck done.Mandi nue levothyrox ine 75 mcg qd for nowRecheck TSH with FT4. Chronic pain 79216735 G8 9.29 As above.Also gets lidocaine patch to right knee daily.Elsy tor [id number] CHASE CHE [address] [address] 01/30/2024 11:16:15 02/04/2024 12:17:43 Chronic obstructive pulmonary disease 77258146 J43.8 stableCont inue Advair 250/50 BID,contin ue Combivent Respimat 1 puff TIDcontinu e albuterol HFA 1 puff q 4 hrs prnMonitor resp. status. Mixed anxi ety and depressive disorder 016365390 F41.8 Continue mirtazapin e 15 mg qhsMonitor mood Gastroesop hageal reflux disease without esophagitis 153360046 K21.9 Continue famotidine 20 mg qhsMonitor for sxs Hypothyroidism 21563236 E03.8 Continue levothyrox ine 75 mcg qdmonitor labs prn Chronic pain 98084209 G8 9.29 As above.Also gets lidocaine patch to right knee daily.Elsy tor [id number] CHASE CHE [address] [address] 03/12/2024 09:49:24 03/25/2024 14:50:38 Chronic obstructive pulmonary disease 55054974 J43.8 stableCont inue Advair 250/50 BID,contin ue Combivent Respimat 1 puff TIDcontinu e albuterol HFA 1 puff q 4 hrs prnMonitor resp. status. Mixed anxi ety and depressive disorder 238436970 F41.8 Continue mirtazapin e 15 mg qhsMonitor mood Gastroesop hageal reflux disease without esophagitis 554323533 K21.9 Continue famotidine 20 mg qhsMonitor for sxs Hypothyroidism 81727123 E03.8 Continue levothyrox ine 75 mcg qdmonitor labs prn Chronic pain 90770104 G8 9.29 As above.Also gets lidocaine patch to right knee daily.Elsy tor Vitamin deficiency 26933 002 E56.9 continue pyridoxine 100 mg daily ,thiamine 100 mg daily ,MVI daily Pain of knee region 1003 152760 M25.569 lidoderm patch right kneediclof enac gel bidtylenol 650 mg q6hr prn [id number] MD KAREN Pope [address] [place] [address] [place] [address] 04/17/2024 21:47:21 05/05/2024 07:56:21 Chronic obstructive pulmonary disease 71594660 J43.8 No recent exacerbati ons.Contin ue Advair 250/50 BID, Combivent Respimat 1 puff TID and albuterol HFA 1 puff q 4 hrs prnMonitor resp. status. Mixed anxi ety and depressive disorder 723616995 F41.8 Mood good tonight.Co ntinue mirtazapin e 15 mg qhsMonitor moodPsych follows, last seen on 03/23/24 with no rec for med changes. Gastroesop hageal reflux disease without esophagitis 795863275 K21.9 No current sxs.Contin ue famotidine 20 mg qhsMonitor for GI sxs Pain of le ft knee region 5059467376 55200 M25.562 Continues to do well with diclofenac gel 4 gms BID and APAP 650 mg q 6 hrs prn.Also uses lidocaine patch on right knee.Monit or sxs. Hypothyroidism 44237766 E03.8 Last TSH remains sl. low at 0.12, but with normal FT4.Contin ue levothyrox ine 75 mcg qd for nowRecheck TSH with FT4 in 3 months. Chronic pain [id number] G8 9.29 As above.Elsy tor sxs [id number] [facility] [address] [place] [address] 05/14/2024 13:40:54 05/19/2024 13:06:16 Psoriasis 2087998 L40.9 Pruritic half dollar size, scaly red patch noted at base of hairline/ nap of neckwill add triamcinol one cream BID for 14 daysmonito r for resolution . [id number] [facility] [address] [place] [address] 05/19/2024 10:01:52 05/20/2024 14:50:20 Psoriasis 8183003 L40.9 Pruritic half dollar size, scaly red patch noted at base of hairline/ nap of neck- improvingc ontinue triamcinol one cream BID for 14 daysmonito r for resolution . [id number] [facility] [address] [place] [address] 06/03/2024 13:59:00 06/05/2024 10:24:55 Chronic obstructive pulmonary disease [id number] J43.8 stableCont inue Advair 250/50 BID,contin ue Combivent Respimat 1 puff TIDcontinu e albuterol HFA 1 puff q 4 hrs prnMonitor resp. status. Mixed anxi ety and depressive disorder 324937633 F41.8 mood has been stableCont inue mirtazapin e 15 mg qhspsych prn Gastroesop hageal reflux disease without esophagitis 122576649 K21.9 Continue famotidine 20 mg qhsMonitor for sxs Hypothyroidism 54345365 E03.8 Continue levothyrox ine 75 mcg qdmonitor labs prn Chronic pain 32678079 G8 9.29 As above.Also gets lidocaine patch to right knee daily.Elsy tor Vitamin deficiency 51380 002 E56.9 continue pyridoxine 100 mg daily ,thiamine 100 mg daily ,MVI daily Pain of knee region 1003 609740 M25.569 lidoderm patch right kneediclof enac gel bidtylenol 650 mg q6hr prn Psoriasis 8042682 L40.9 resolved [id number] [facility] [address] [place] [address] 07/23/2024 10:20:41 07/28/2024 15:44:44 Chronic obstructive pulmonary disease 63035664 J43.8 stableCont inue Advair 250/50 BID,contin ue Combivent Respimat 1 puff TIDcontinu e albuterol HFA 1 puff q 4 hrs prnMonitor resp. status. Mixed anxi ety and depressive disorder 851585788 F41.8 mood has been stableCont inue mirtazapin e 15 mg qhspsych prn Gastroesop hageal reflux disease without esophagitis 046473444 K21.9 Continue famotidine 20 mg qhsMonitor for sxs Hypothyroidism 23475665 E03.8 Continue levothyrox ine 75 mcg qdmonitor labs prn Chronic pain 68788072 G8 9.29 As above.Also gets lidocaine patch to right knee daily.Elsy tor Vitamin deficiency 63376 002 E56.9 continue pyridoxine 100 mg daily ,thiamine 100 mg daily ,MVI daily Pain of knee region 1003 880655 M25.569 stable.lid oderm patch right kneediclof enac gel bidtylenol 650 mg q6hr prn Psoriasis 2193772 L40.9 resolved [id number] [facility] [address] [place] [address] 09/14/2024 12:31:36 09/22/2024 14:14:59 Chronic obstructive pulmonary disease 47077392 J43.8 stableCont inue Advair 250/50 BID,contin ue Combivent Respimat 1 puff TIDcontinu e albuterol HFA 1 puff q 4 hrs prnMonitor resp. status. 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 mood has been stableCont inue mirtazapin e 15 mg qhspsych prn Gastroesop hageal reflux disease without esophagitis 911917832 K21.9 Continue famotidine 20 mg qhsMonitor for sxs Hypothyroidism 19764334 E03.8 Continue levothyrox ine 75 mcg qdmonitor labs prn Chronic pain 35228141 G8 9.29 As above.Also gets lidocaine patch to right knee daily.Elsy tor Vitamin deficiency 84978 002 E56.9 continue pyridoxine 100 mg daily ,thiamine 100 mg daily ,MVI daily Pain of knee region 1003 740617 M25.569 stable.lid oderm patch right kneediclof enac gel bidtylenol 650 mg q6hr prn [id number] [facility] [address] [place] [address] 10/12/2024 10:37:58 10/13/2024 13:55:23 COVID-19 [id number] U07.1 we discussed antiviral, she is not interested ,s she reports that she is feeling better todaywill add prn robitussin and oxygen as wellcontin ue supportive therapy( tylenol, oxygen, robitussin ordered.)i ncrease fluids encouraged discussed with nursing, update provider with changes. [id number] [facility] [address] [place] [address] 01/10/2025 10:55:53 01/14/2025 16:09:23 Chronic obstructive pulmonary disease 67907075 J43.8 stableCont inue Advair 250/50 BID,contin ue Combivent Respimat 1 puff TIDcontinu e albuterol HFA 1 puff q 4 hrs prnMonitor resp. status. Mixed anxi ety and depressive disorder 746574186 F41.8 stableCont inue mirtazapin e 15 mg qhspsych prn Gastroesop hageal reflux disease without esophagitis 217992443 K21.9 stable/Con tinue famotidine 20 mg qhsMonitor for sxs Hypothyroidism 27722883 E03.8 Continue levothyrox ine 75 mcg qdmonitor labs prn Chronic pain 94204474 G8 9.29 stableAlso gets lidocaine patch to right knee daily.Elsy tor Vitamin deficiency 07722 002 E56.9 continue pyridoxine 100 mg daily ,thiamine 100 mg daily ,MVI daily Pain of knee region 1003 375358 M25.569 stable.lid oderm patch right kneediclof enac gel bidtylenol 650 mg q6hr prn [id number] Abhinav Gage MD [facility] [address] [address] 04/05/2025 11:54:28 04/07/2025 10:01:04 Cellulitis of face 246588352 L03.038 2106418 left perioccula r cellultis developing over past 24 hoursconce rn for bacterial etiologyst art augmentin 875 mb bid x 10 dayprobiot ic bid x 2 weekscbc bmp orderedben adryl 25 mg q 6 prnmonitor for change [id number] [facility] [address] [facility] [address] [place] [address] 04/21/2025 05:52:11 04/22/2025 11:06:56 Acute abdominal pain 768149355 R10.9 28564 reports times 1 week associated with nausea and vomiting and diarrhea.r eports flatulence , bloatinghy poactive BS notedLast BM was small a few days agowill get KUB, UA and labscontin ue zofran Chronic ob structive pulmonary disease 36671207 J43.8 stableCont inue Advair 250/50 BID,contin ue Combivent Respimat 1 puff TIDcontinu e albuterol HFA 1 puff q 4 hrs prnMonitor resp. status. Mixed anxi ety and depressive disorder 897526580 F41.8 stableCont inue mirtazapin e 15 mg qhspsych prn Gastroesop hageal reflux disease without esophagitis 828846481 K21.9 stable/Con tinue famotidine 20 mg qhsMonitor for sxs Hypothyroidism 09394470 E03.8 Continue levothyrox ine 75 mcg qdmonitor labs prn Chronic pain 92007516 G8 9.29 stableAlso gets lidocaine patch to right knee daily.Elsy tor Vitamin deficiency 36371 002 E56.9 continue pyridoxine 100 mg daily ,thiamine 100 mg daily ,MVI daily Pain of knee region 1003 006662 M25.569 stable.lid oderm patch right kneediclof enac gel bidtylenol 650 mg q6hr prn 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 27475 resolvingl eft periocular noted ith residual rednesscom pleted acyclovir Health Concerns Section Related Observation LastModified by Organization Detai ls LastModified Time None Recorded Concern Status LastModified by Organization Details LastModified Time None Recorded Advance Directives Directive Y: DNI otherwise full code Payers Insurance Date Sequence Insurance Name Policy Number Policy Martino Covered Member ID Martino Member ID Guarantor Name 04/21/2025 2 [place] [facility] Brittanie Call [id number] Brittanie Call 04/21/2025 1 [place] [employer] Brittanie Call [id number] Brittanie Call Notes Date Note Type Note Provider Name and Address Organization Details Recorded Time 09/14/2024 text/html ROS as noted in the HPI This is an 83 yo woman, LTC resident with a past medical history that includes Tb, hx of ovarian CA-s/p DYLLAN & BSO, COPD, and depression/anxiety . Seen for routine rounding. She is stable at her baseline in NAD. There are no acute concerns. She is eating and drinking ok, no concerns with elimination. [facility] [address] [facility], [address], [place], [address], [employer] 09/18/2024 18:11:40 10/12/2024 text/html ROS as noted in the HPI This is an 84 yr old patient [...] covid. reportable sx reviewed. [facility] [address] [facility], [address], [place], [address], [employer] 10/12/2024 15:53:56 01/10/2025 text/html ROS as noted in the HPI This is an 84 yo woman, LTC [...] is no acute concerns. [facility] [address] [facility], [address], [place], [address], [facility] 01/11/2025 10:18:20 04/05/2025 text/html Patient is an 84 yo female LTC resident seen for MD visit. Over the past 24 hours has developed left jose guadalupe orbital inflammation and erythema. Abhinav Gage MD [address] [facility], [address], [place], [address], [facility] 04/05/2025 12:00:01 04/21/2025 text/html ROS as noted in the HPI This is an 84 yo woman, LTC resident with a past medical history that includes Tb, hx of ovarian CA-s/p DYLLAN & BSO, COPD, and depression/anxiety . 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 Today she reports diffused abdominal pain associated with nausea and vomiting, she reports vomiting 4 times, she has not had BM in 1 week and reports feeling gassy overall she states that she feels miserable, poor appetite d/t vomiting, states she has not been able to keep anything down so she has not eaten; noted with hypotensive BS. plan discussed with patient, will gets labs, UA and imaging done to r/o obstruction and or infectious causes. [facility] [address] [facility], [address], [place], [address], [facility] 04/21/2025 13:24:40 OBGyn Episode No OBEpisode recorded.
--- OUTSIDE RECORDS SUMMARY | 2025-07-19 07:01 | XMS_ITS | Clinical Summary ---
Author Organization [facility] Address [address] [place] [address] Care Team Providers Care Professional Bass Fisherman Name Role Phone Alejandra Mo MD Primary Care Provider [phone] Surgical History Surgery Date Site/Laterality Comments ANKLE SURGERY PROCEDURE: HISTORICAL ANKLE SURGERY OTHER SURGICAL HISTORY PROCEDURE: AL TOTAL ABDOMINAL HYSTERECT W/WO RMVL TUBE OVARY [...] nts (1 - 1-dose 75+ series) 2016 Depression Screening 10/14/2024 COVID-19 Vaccine (1 - 2023-2 5 season) 2025 Influenza Vaccine (#1) 2025 HIB Vaccines Aged [...] Documents on File Type Date Recorded Patient Interior [employer]sembl[employer] Developer [employer] Expl anation Health Care Decision (hx) 08/21/2019 AD MYERS DIRECTIVE Health Care Decision (hx) 07/28/2019 AD MYERS DIRECTIVE Care Teams Professional Bass Fisherman Relationship Specialty Start Date End Date Alejandra Mo MD PCP - General Internal Medicine 12/21/20
--- OUTSIDE RECORDS SUMMARY | 2025-07-19 07:01 | XMS_ITS | Encounter Summary ---
Author Organization [facility] Address [address] [place] [address] Care Team Providers Care Community Representative Name Role Phone Marco Antonio Silva MD Primary Care Provider Unava orable Alejandra Mo MD Primary Care Provider [phone] Encounter Details Date Type Department Care Team Description 08/06/2019 Orders Only Medical Records [address] [place] [address] Ricky Major MD [address] [place] [id number] Social History Tobacco Use Types Packs/Day [...] on filedocumented in this encounter Care Teams Community Representative Relationship Specialty Start Date End Date Marco Antonio Silva MD PCP - General Internal Medicine 07/17/19 12/20/20 Alejandra Mo MD PCP - General Internal Medicine 12/21/20 documented as of this encounter
[2025-07-19 07:28] LABS: Anion Gap 10 (12-20); Blood Urea Nitrogen 20 mg/dL (9-16); Calcium 8.3 mg/dL (8.4-10.2); Carbon Dioxide 23 mmol/L (22-29); Chloride 112 mmol/L (96-108); Estimated Glomerular Filt Rate > 60; Potassium 3.6 mmol/L (3.3-5.1); Sodium 141 mmol/L (135-145)
== END 2025-07-19 06:46 | disposition home or self-care (01) ==
LOC: HO.MMNH3L 06:45
PROVIDERS: Visit Provider Family Medicine
DX: J96.01 Acute respiratory failure with hypoxia (principal); A15.0 Tuberculosis of lung
CPT/HCPCS: 36415; 80048; 85025

== ENCOUNTER 2025-07-23 05:44 | Outpatient (REF) | payer MEDICARE, SELFPAY ==
[2025-07-23 05:46] LABS: MANUAL DIFF FLAG NO
--- OUTSIDE RECORDS SUMMARY | 2025-07-23 05:46 | XMS_ITS | Data Portability ---
Author Organization [facility], Main Office Address [address] [place] [address] Care Team Providers Care Veneer Glue Jointer Feedback Name Role Phone KAREN CONTEH 3RD FLOOR OTHER Assessment Encounter Date Assessment Date Assessment LastModified by Organization Details LastModified Time 01/10/2025 01/10/2025 labs 3/: Na 140-K 3.9-bun 19- cr 0.8-wbc 4.8-hgb [...] Address Organization Details Recorded Time Tuberculos is 63454877 [facility] Healthcare associated bacterial pneumonia 889900046 Active [facility] 10:16:18 Diagnostic pneumomedi astinum Active 2018 Hina gonzalez, [facility] 9 10:16:34 Severe protein-ca yobani malnutriti on (Bell: less than 60 percent of standard weight) 892795197 Active 2018 Hina gonzalez, [facility] 9 10:17:04 Mediastina l emphysema 13613253 Active 2018 Hina gonzalez, [facility] 9 10:17:42 History of malignant neoplasm of ovary 206158006 Active 2018 Hinamarie gonzalez, [facility] 9 10:18:05 Mixed anxiety and depressive disorder 993684881 Active 2018 Nichelle gonzalez, [facility] 9 10:56:15 Chronic obstructiv e pulmonary disease 92023948 Active 2019 Kianna Alvarez MD [address], [address], [place], [address] , [facility] 0 22:40:16 Hypothyroi dism 85895872 Active 2019 Toma Alvarado MD [address], [address], [place], [address] , [facility] 0 09:30:52 SARS-CoV-2 Active 2019 SON LEIJA NP [address], [address], [place], [address] , [facility] 0 11:35:17 Pain in right knee Active 2020 SON LEIJA NP [address], [address], [place], [address] , [facility] [employer] [facility] 1 13:53:06 Gastroesop hageal reflux disease without esophagiti s 674033474 Active 2020 SON LEIJA NP [address], [address], [place], [address] , [facility] [employer] [facility] 1 12:16:37 Vitamin deficiency 60169176 Active 2020 SON LEIJA NP [address], [address], [place], [address] , [facility] 1 12:17:06 Pain of left knee region 1924253575422 09 Active 2022 SON LEIJA NP [address], [address], [place], [address] , [facility] 3 13:05:00 Chronic pain 37246585 Active 2023 Kianna Alvarez MD [address], [address], [place], [address] , [facility] 4 11:01:01 Problem Notes None recorded. [...] 94 % 118/67 mm[Hg] [facility] [address], [address], [place], [address], [facility] 5 10:17:43 Date Recorded Body height Respiratory rate Body temperature Oxygen saturation Oxygen saturation in Arterial blood by Pulse oximetry Heart rate Systolic And Diastolic Provider Name and Address Organization Details Last Updated DateTime 5 149.86 cm 18 /min 97.2 [degF] 96 % 96 % 74 /min 120/85 mm[Hg] [facility] [address], [address], [place], [address], [facility] 5 13:08:28 Date Recorded Body height Heart rate Respiratory rate Body temperature Oxygen saturation Oxygen saturation in Arterial blood by Pulse oximetry Systolic And Diastolic Provider Name and Address Organization Details Last Updated DateTime 4 149.86 cm 75 /min 18 /min 98 [degF] 98 % 98 % 131/69 mm[Hg] [facility] [address], [address], [place], [address], [facility] 4 18:09:49 Date Recorded Body height Heart rate Respiratory rate Body temperature Oxygen saturation Oxygen saturation in Arterial blood by Pulse oximetry Systolic And Diastolic Provider Name and Address Organization Details Last Updated DateTime 4 149.86 cm 68 /min 18 /min 97.1 [degF] 96 % 96 % 134/70 mm[Hg] [facility] [address], [address], [place], [address], [facility] [employer] 4 15:34:38 Social History Question Answer Notes LastModified by Organizat ion Details LastModified Time Tobacco Smoking Status Former Smoker smoked 1.5 ppd, quit many yrs ago Kianna Alvarez MD [address], [address], [place], [address], [facility] [employer] 08/16/2023 17:37:37 Do You Have An Advance Directive? Yes DNI Otherwise Full Code [id number] Information not available 08/09/2020 How Much Tobacco Do You Chew? None [id number] Information not available 08/09/2020 What Is Your Code Status? DNI Information not available 03/28/2023 Where Do You Live? [facility] Information not available 03/28/2023 Legal Guardian? No Informati on not available 03/28/2023 Do You Have A Medical Power Of Body Worker? Yes Not Invoked Information not available 03/28/2023 [...] Many Years Have You Smoked Tobacco? 60 [id number] Information not available 08/09/2020 Sex: Unknown Functional Status Question Answer Note LastModified by Organizat ion Details LastModified Time Do you use any illicit or recreational drugs? No Information not available 03/28/2023 Do you or have you ever used any other forms of tobacco or nicotine? No Information not available 03/28/2023 What is your level of alcohol consumption? None [id number] Information not available 08/09/2020 Do you or have you ever used smokeless tobacco? Never used smokeless tobacco [id number] Information not available 08/09/2020 Do you or have you ever used e-cigarettes or vape? Never used electronic cigarettes [id number] Information not available 08/09/2020 Mental Status None recorded. Family History Relationship Description Onset Age of this Age Resolved Age Notes LastModified by Organization Details LastModified Time Father No current problems or disability [facility] 08/21 09:44:07 Mother No current problems or disability [facility] Not available 08/21 09:44:07 Notes:N/C Medical History No medical history recorded. Gynecological HistoryNo gynecological history recorded. Obstetrics History GPAL:G 0 P 0 0 0 0 Immunizations Vaccine Type Date Status Note Provider Nam e and Address Organization Details Recorded Time Influenza, adjuvanted, quadrivalent, PF 08/27/2022 completed Gabriela [facility] 11/01/2023 11:51:08 Influenza, adjuvanted, quadrivalent, PF 05/20/2023 [facility] 11:51:23 Past Encounters Encounter ID Performer Location Encounter Start Date Encounter Closed Date Diagnosis/Indication Diagnosis SNOMED-CT Code Diagnosis ICD10 Code Diagnosis IMO Codes Diagnosis Note [id number] ROMY PINEDA [address] [facility] [place] [address] 08/21/2019 09:44:29 09/01/2019 10:32:18 Tuberculosis 71773940 A18.89 continue Isoniazid, Rifampin, Pyrazinami de, Pyridoxine f/u at [facility] TB clinic on 08/25. Healthcare associated bacterial pneumonia 045898837 Y95 completed abx txcontinue brovana, pulmicort, duonebs scheduled and prn albuterolp ulmo and RT to follow here. Severe protein-calorie malnutrition (Bell: less than 60 percent of standard weight) 550995759 E43 wildlife removal specialist meghann acosta remeron- started 08/10. Mediastinal emphysema 16 539091 J98.2 pneumomedi astinum related to infection/ bronchosco pyno interventi on neededif resp sx develop will repeat cxr/CT chest Physical deconditioning 0435624516 9102 R68.89 PT/OT eval. [id number] Abhinav Gage MD [facility] [address] [place] [address] 08/24/2019 08:02:58 09/01/2019 10:59:44 Tuberculosis 84626849 A15.0 see HPIfollowe d by ID of note in hospital case discussed with dept of public health ID and determined it was safe to take patient off airborne precaution s as she had been treated for > 14 daysf[place] [facility] [place] Ab courseadd probioticu pdate ID with change in presentati onmonitor respirator y function Healthcare associated bacterial pneumonia 254719716 Y95 see HPIcomplet ed vanco and zosynsee above Asthenia 73052379 R53.1 PT OT eval and treatmonit or fall risk Severe protein-calorie malnutrition (Bell: less than 60 percent of standard weight) 682603184 E41 [facility] weights and PO intake History of malignant neoplasm of ovary 475242459 Z85.43 added to PMH [id number] KEILA Sepulveda [facility] [address] [place] [address] 09/01/2019 07:19:48 09/04/2019 15:23:56 Tuberculosis [id number] A15.0 see HPIfollowe d by ID of note in hospital case discussed with dept of public health ID and determined it was safe to take patient off airborne precaution s as she had been treated for > 14 daysf/u [facility] [place] Ab courseprob ioticupdat e ID with change in presentati onmonitor respirator y function Healthcare associated bacterial pneumonia 845256309 Y95 see HPIcomplet ed vanco and zosynsee above Asthenia 35223376 R53.1 PT OT eval and treatmonit or fall risk Severe protein-calorie malnutrition (Bell: less than 60 percent of standard weight) 211189853 E41 carrying dx from hospitaldi etary eval pt has gained 2 lbs in the past week according to weekly weight data, has good reported appetite. [place] [id number] Nichelle Dooley NP [address] [place] [address] 09/08/2019 07:58:08 09/17/2019 14:56:26 Tuberculosis 48810310 A15.0 see Jalen garibay by ID of [...] respirator y function Healthcare associated bacterial pneumonia 505582567 Y95 see HPIcomplet ed vanco and zosynsee above Asthenia 77270022 R53.1 PT OT eval and treatmonit or fall risk Severe protein-calorie malnutrition (Bell: less than 60 percent of standard weight) 067349018 E41 carrying dx from hospitaldi etary eval pt has good reported appetite. monitor weights [place] intake [id number] Nichelle Dooley NP [address] [place] [address] 09/15/2019 07:35:21 09/23/2019 11:38:11 Tuberculosis 09914864 A15.0 see Jalen garibay by TB clinic [...] respirator y function Healthcare associated bacterial pneumonia 873969424 Y95 see HPIcomplet ed vanco and zosynsee above Asthenia 72354672 R53.1 PT OT eval and treatmonit or fall risk Severe protein-calorie malnutrition (Bell: less than 60 percent of standard weight) 135192717 E41 carrying dx from hospitaldi etary eval- pt now on ensures pt has good reported appetite. monitor weights and PO intake [id number] Nichelle Dooley NP KAREN CONTEH [address] [place] [address] 09/22/2019 09:39:42 09/29/2019 09:21:51 Tuberculosis [id number] A15.0 see HPIfollchristian d by TB clinic [...] O2 orders monitor respirator y function Asthenia 37673076 R53.1 Pt has been DCd from PT- she has reached her baseline, only walking about 30 ft with walker, varies with transfers. monitor fall risk Severe protein-calorie malnutrition (Bell: less than 60 percent of standard weight) 892183065 E41 carrying dx from hospital has lost about 9lbs in the past month pt on ensures tid will increase mirtazapin e to 15mg qd today monitor ?weight loss due to ovarian cancer History of malignant neoplasm of ovary 335165482 Z85.43 added to PMH Per family the pt had one day of treatment for this and then never followed up with this- she refused care. Mixed anxi ety and depressive disorder 608901397 F41.8 will order psych eval today monitor mood [id number] Nichelle Dooley NP [facility] [address] [place] [address] 09/28/2019 07:22:29 10/01/2019 14:27:45 Tuberculosis 00885724 A15.0 see HPI stable. followed by TB [...] O2 orders monitor respirator y function Asthenia 94643685 R53.1 Pt has been DCd from PT- she has reached her baseline, only walking about 30 ft with walker, varies with transfers. monitor fall risk Severe protein-calorie malnutrition (Bell: less than 60 percent of standard weight) 542958512 E41 carrying dx from hospital has lost over 10lbs since her admission, however she appears to have leveled out. pt on ensures tid mirtazapin e increased to 15mg qd last week continue to monitor ?weight loss due to ovarian cancer History of malignant neoplasm of ovary 781518243 Z85.43 added to PMH Per family the pt had one day of treatment for this and then never followed up with this- she refused care. Mixed anxi ety and depressive disorder 746681912 F41.8 awaiting psych eval monitor mood [id number] KEILA Sepulveda [address] [place] [address] 10/08/2019 07:24:07 10/12/2019 16:27:09 Tuberculosis 47060008 A15.0 see HPI stable. followed by TB [...] less than 60 percent of standard weight) 518685382 E41 carrying dx from hospital has lost over 7lbs since her admission, appears to be stable at this time.pt on ensures tid mirtazapin e 15mg qd continue to monitor History of malignant neoplasm of ovary 067034897 Z85.43 added to PMH Per family the pt had one day of treatment for this and then never followed up with this- she refused care. Mixed anxi ety and depressive disorder 009506107 F41.8 pt recently seen by [facility], no consult notes in chart yet monitor mood [id number] KEILA Sepulveda [address] [place] [address] 10/12/2019 08:06:04 10/16/2019 13:50:57 Tuberculosis 22652447 A15.0 see HPI stable. followed by TB [...] less than 60 percent of standard weight) 730258561 E41 carrying dx from hospital pt on ensures tid mirtazapin e 15mg qd pt had initially lost weight, now improving continue to monitor Mixed anxi ety and depressive disorder 387810490 F41.8 pt recently seen by [facility], awaiting consult notes. monitor mood History of malignant neoplasm of ovary 565986250 Z85.43 added to PMH Per family the pt had one day of treatment for this and then never followed up with this- she refused care. [id number] KEILA Sepulveda [address] [place] [address] [place] [address] 10/19/2019 08:10:14 10/22/2019 14:29:13 Tuberculosis 40242816 A15.0 see HPI stable. followed by TB [...] less than 60 percent of standard weight) 104595151 E41 carrying dx from hospital pt on ensures tid mirtazapin e 15mg qd pt had initially lost weight, now improving continue to monitor Mixed anxi ety and depressive disorder 997937397 F41.8 mirtazapin e 15mg qd monitor mood psych following History of malignant neoplasm of ovary 075139140 Z85.43 added to PMH Per family the pt had one day of treatment for this and then never followed up with this- she refused care. [id number] MD KAREN Cooper [address] [place] [address] 11/18/2019 15:07:44 11/22/2019 15:31:49 Tuberculosis 91408538 A15.0 followed by [place] current Ab courseupda te ID with change in presentati onmonitor respirator y functioncu rrently stable at baseline Nausea and vomiting 1692 1999 R11.2 appears secondary to medication administra tibooll have patient take zofran priormonit or for sx control [id number] KEILA Sepulveda [address] [place] [address] 12/01/2019 12:14:48 12/11/2019 14:40:43 Tuberculosis 23841597 A15.0 followed by ID seen by tb [...] less than 60 percent of standard weight) 138704094 E41 carrying dx from hospital pt on ensures tid mirtazapin e 15mg qd pt continues to have weight loss recent DC of abx as above may be helpful, as these were likely causing her some nausea continue to monitor weights bi-weekly for 4 weeks Mixed anxi ety and depressive disorder 216501645 F41.8 mirtazapin e 15mg qd monitor mood psych following History of malignant neoplasm of ovary 332972289 Z85.43 added to PMH Per family the pt had one day of treatment for this and then never followed up with this- she refused care. [id number] Nichelle Dooley NP KAREN CONTEH [address] [place] [address] [place] [address] 12/29/2019 12:37:57 01/01/2020 15:52:34 Cough 92353861 R05 With associated chills, fatigue, body aches. Will check for flu and resp viral panel, cbc/cmp of note there is a resident on the floor +for flu A encourage fluids supportive care continue to monitor [id number] Nichelle Dooley NP KAREN CONTEH [address] [place] [address] [place] [address] 01/15/2020 14:07:52 01/21/2020 13:07:58 Tuberculosis 66658639 A15.0 followed by ID continues on multiple [...] on site prn currently stable at baseline [id number] Kianna Alvarez MD [address] [address] 01/22/2020 17:32:59 01/28/2020 18:46:52 Tuberculosis 62332487 A15.0 She is on ethambutol 800 mg [...] less than 60 percent of standard weight) 842514221 E41 She has lost 20# since here. BMI still in nl. range. Was given this dx in the hospital. Continue ensure TID and mirtazapin e 15 mg qd Continue to monitor weights Mixed anxi ety and depressive disorder 823640220 F41.8 Mood good today. Continue mirtazapin e 15 mg qd. monitor mood Follow with NEG as able. History of malignant neoplasm of ovary 528425119 Z85.43 Hx of. Had DYLLAN/BSO Per family the pt had one day of treatment for this and then never followed up with this- she refused care. Chronic ob structive pulmonary disease 72043313 J43.8 Likely with underlying COPD. Continue meds as above. Will need full PFTs when able. [id number] KEILA BRASHER [address] [place] [address] 03/18/2020 09:19:47 03/22/2020 10:40:26 Chronic obstructive pulmonary disease 26188518 J44.9 monitor for any sob, O2 if needed Mixed anxi ety and depressive disorder 825168570 F41.8 Continue mirtazapin e 15 mg qd. monitor mood Follow with NEG as able. Severe protein-calorie malnutrition (Bell: less than 60 percent of standard weight) 684577495 E43 Continue ensure TID and mirtazapin e 15 mg qd Continue to monitor weights Tuberculosis 38392809 A1 8.89 continue ethambutol 800 mg qd, isoniazid 300 mg qd and pyrazinami de 1000 mg qd Nebs all transition ed to inhalers, now on combivent QID, symbicort 80/4.5 two puffs BID and proair with spacer q 4h prn. Continue O2 prn to maintain sats >90% Monitor respirator y function F/U with resp therapist and pulmonary as able. [id number] KEILA BRASHER [address] [place] [address] 04/11/2020 10:32:37 04/19/2020 15:35:04 Mixed anxiety and depressive disorder 899518891 F41.8 Continue mirtazapin e 15 mg qd. monitor mood Follow with NEG as able. [id number] MD KAREN Morales [address] [address] [place] [address] 05/20/2020 06:57:19 05/24/2020 10:36:19 Chronic obstructive pulmonary disease 52746658 J44.9 Symbicort 4.5-80: 2 puffs bidCombive nt respimat 20-100: one puff tidalbuter ol HFA 1 puff q4h prn will monitor History of malignant neoplasm of ovary 601699942 Z85.43 s/p DYLLAN, SBO; has refused further treatment Mixed anxi ety and depressive disorder 455969321 F41.8 mirtazapin e 15 mg at [facility] monitor Tuberculosis 52952450 A1 8.89 fu [facility] clinic Hypothyroidism 72310390 E03.8 levothyrox ine 75 mcg dailywill monitor [id number] KEILA BRASHER [address] [place] [address] 07/13/2020 10:24:49 07/15/2020 14:24:57 Chronic obstructive pulmonary disease 70466806 J44.9 monitor for any sob, O2 if needed symbicort 80/4.5 q12 hr combivent 20/100 tid flonase daily Healthcare associated bacterial pneumonia 343128187 J15.9 recovered Hypothyroidism 16722610 E03.9 levothyrox ine 75 mcg daily will monitor Mixed anxi ety and depressive disorder 488154342 F41.8 mirtazapin e 15 mg qd. monitor mood Follow with NEG as able. Tuberculosis 45748416 A1 8.89 combivent tid, symbicort 80/4.5 two puffs BID proair with spacer q 4h prn. Continue O2 prn to maintain sats >90% Monitor respirator y function F/U with resp therapist and pulmonary as able. Severe protein-calorie malnutrition (Bell: less than 60 percent of standard weight) 540438824 E43 ensure TID and mirtazapin e 15 mg qd thiamine 100 mg daily B6 100 daily Continue to monitor weights [id number] SON GRIPPIN, MEDICAL RECORDS CLERK [address] [address] 08/23/2020 11:08:00 08/25/2020 13:34:50 Chronic obstructive pulmonary disease 37322280 J44.9 monitor for any sob, O2 if needed symbicort 80/4.5 q12 hr combivent 20/100 tid flonase daily SARS-CoV-2 452035426 U07 .1 encourage po intake O2 prn consider IVF if she becomes anorexic [id number] SON LEIJA NP [address] [address] 08/29/2020 12:18:09 08/31/2020 15:39:28 Chronic obstructive pulmonary disease 25363617 J44.9 monitor for any sob, O2 if needed symbicort 80/4.5 q12 hr combivent 20/100 tid flonase daily loratadine 10mg daily Healthcare associated bacterial pneumonia 304801946 J15.9 recovered History of malignant neoplasm of ovary 288774066 Z85.43 DYLLAN SBO no further treatment Hypothyroidism 68464496 E03.9 levothyrox ine 75 mcg daily will monitor Mediastinal emphysema 16 535447 J98.2 2019 pneumomedi astinum related to infection/ bronchosco py no interventi on needed if resp sx develop will repeat cxr/CT chest Mixed anxi ety and depressive disorder 607437551 F41.8 mirtazapin e 15 mg qd. monitor mood Follow with NEG as able. SARS-CoV-2 283717314 U07 .1 encourage po intake O2 prn consider IVF if she becomes anorexic Severe protein-calorie malnutrition (Bell: less than 60 percent of standard weight) 014366622 E43 ensure TID and mirtazapin e 15 mg qd thiamine 100 mg daily B6 100 daily Continue to monitor weights Tuberculosis 42112961 A1 8.89 combivent tid, symbicort 80/4.5 two puffs BID proair with spacer q 4h prn. Continue O2 prn to maintain sats >90% Monitor respirator y function F/U with resp therapist and pulmonary as able. [id number] SON LEIJA NP [address] [address] 08/30/2020 08:12:16 09/02/2020 10:34:19 SARS-CoV-2 140679551 U07.1 encourage po intake O2 prn consider IVF if she becomes anorexic [id number] SON LEIJA NP [address] [address] 08/31/2020 11:03:06 09/02/2020 11:07:24 SARS-CoV-2 959403298 U07.1 08/16, 08/23 positive encourage po intake O2 prn consider IVF if she becomes anorexic [id number] SON LEIJA NP [address] [address] 09/01/2020 09:30:51 09/06/2020 10:25:57 SARS-CoV-2 549803502 U07.1 08/16, 08/23 positive encourage po intake O2 prn consider IVF if she becomes anorexic [id number] SON LEIJA NP [address] [address] 09/02/2020 12:59:16 09/06/2020 10:40:27 SARS-CoV-2 564809859 U07.1 08/16, 08/23 positive, 08/29 negative encourage po intake O2 prn consider IVF if she becomes anorexic [id number] Toma Alvarado MD [address] [address] 09/23/2020 06:10:55 09/27/2020 11:42:12 Chronic obstructive pulmonary disease 93611846 J41.0 Advair 250-50: one puff bidCombive nt Respimat 20-100: one puff tidalbuter ol HFA 1 puff q4h prn will monitor History of malignant neoplasm of ovary 034935985 Z85.43 s/p DYLLAN, SBO; has refused further treatment Hypothyroidism 27169058 E03.8 levothyrox ine 75 mcg dailywill monitor Mixed anxi ety and depressive disorder 801073067 F41.8 mirtazapin e 15 mg at [facility] monitor SARS-CoV-2 487197507 U07 .1 recoveredw ill continue to monitor [id number] SON LEIJA NP [address] [address] 11/15/2020 13:47:46 11/16/2020 14:55:19 Chronic obstructive pulmonary disease 35357670 J44.9 monitor for any sob, O2 if needed advair 250/50 daily combivent 20/100 tid flonase daily albuterol prn loratadine 10mg daily Healthcare associated bacterial pneumonia 781613342 J15.9 recovered History of malignant neoplasm of ovary 241119822 Z85.43 DYLLAN SBO no further treatment Hypothyroidism 63554630 E03.9 levothyrox ine 75 mcg daily will monitor Mediastinal emphysema 16 152293 J98.2 2019 pneumomedi astinum related to infection/ bronchosco py no interventi on needed if resp sx develop will repeat cxr/CT chest Mixed anxi ety and depressive disorder 234829693 F41.8 mirtazapin e 15 mg qd. monitor mood Follow with NEG as able. SARS-CoV-2 620046397 U07 .1 recovered 08/16, 08/23 positive, 08/29 negative encourage po intake O2 prn consider IVF if she becomes anorexic Severe protein-calorie malnutrition (Bell: less than 60 percent of standard weight) 180743302 E43 ensure TID and mirtazapin e 15 mg qd thiamine 100 mg daily B6 100 daily Continue to monitor weights Tuberculosis 11523264 A1 8.89 combivent tid, advair daily proair with spacer q 4h prn. Continue O2 prn to maintain sats >90% Monitor respirator y function F/U with resp therapist and pulmonary as able. Pain in right knee 84435 10399 59319 M25.561 lidoderm patch right kneediclof enac gel bidtylenol 650 mg q6hr prn [id number] MD KAREN Morales [facility] [address] [facility] [place] [address] 01/06/2021 07:13:09 01/10/2021 10:35:09 Chronic obstructive pulmonary disease [id number] J41.0 Advair 250-50: one puff bidCombive nt Respimat 20-100: one puff tidalbuter ol HFA 1 puff q4h prn will monitor History of malignant neoplasm of ovary 654083710 Z85.43 s/p DYLLAN, SBO; has refused further treatment Hypothyroidism 94430308 E03.8 levothyrox ine 75 mcg dailywill monitor Mixed anxi ety and depressive disorder 372478520 F41.8 mirtazapin e 15 mg at hswill monitor SARS-CoV-2 557239766 U07 .1 diagnosed 09/02 recovered will continue to monitor [id number] KEILA BRASHER WERO [address] [place] [address] 03/01/2021 08:04:33 03/03/2021 13:38:48 Chronic obstructive pulmonary disease 99383061 J44.9 monitor for any sob, O2 if needed advair 250/50 bid combivent 20/100 tid flonase daily albuterol prn loratadine 10mg daily History of malignant neoplasm of ovary 850723857 Z85.43 DYLLAN SBO no further treatment Hypothyroidism 38846024 E03.9 levothyrox ine 75 mcg daily will monitor Mediastinal emphysema 16 115903 J98.2 2019 pneumomedi astinum related to infection/ bronchosco py no interventi on needed if resp sx develop will repeat cxr/CT chest Mixed anxi ety and depressive disorder 552549758 F41.8 mirtazapin e 15 mg qd. monitor mood Follow with NEG as able. Pain in right knee 71324 30773 23967 M25.561 lidoderm patch right kneediclof enac gel bidtylenol 650 mg q6hr prn Severe protein-calorie malnutrition (Bell: less than 60 percent of standard weight) 660481629 E43 ensure TID mirtazapi ne 15 mg qd thiamine 100 mg daily B6 100 daily Continue to monitor weights Tuberculosis 65359864 A1 8.89 combivent tid, advair 250/50 bid proair with spacer q 4h prn. Continue O2 prn to maintain sats >90% Monitor respirator y function F/U with resp therapist and pulmonary as able. 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 mirtazapin e 15 mg at hswill monitor SARS-CoV-2 972824470 U07 .1 diagnosed 09/02 recovered will continue to monitor Gastroesop hageal reflux disease without esophagitis 044307553 K21.9 famotidine 20 mg at hswill monitor Acute conjunctivitis 537 48990 H10.011 improvingc omplete course of polytrim solutionwi ll monitor [id number] KEILA BRASHER [address] [place] [address] 06/14/2021 11:54:10 06/16/2021 10:06:14 Chronic obstructive pulmonary disease 91020313 J41.0 monitor for any sob, O2 if needed advair 250/50 bid combivent 20/100 tid flonase daily albuterol prn loratadine 10mg daily Hypothyroidism 83791966 E03.8 levothyrox ine 75 mcg daily will monitor Mixed anxi ety and depressive disorder 429141964 F41.8 mirtazapin e 15 mg qd. monitor mood Follow with NEG as able. Pain in right knee 18587 21035 80047 M25.561 lidoderm patch right kneediclof enac gel bidtylenol 650 mg q6hr prn Tuberculosis 36707468 A1 8.89 combivent tid, advair 250/50 bid proair with spacer q 4h prn. O2 prn to maintain sats >90% Monitor respirator y function F/U with resp therapist and pulmonary as able. Gastroesop hageal reflux disease without esophagitis 912345818 K21.9 pepcid 20 mg daily Vitamin deficiency 61496 002 E56.9 mvi dailythiam ine 100 mg dailyB6 daily [id number] MD KAREN Morales WERO [address] [place] [address] 08/23/2021 06:02:03 08/25/2021 11:44:21 Chronic obstructive pulmonary disease 15759703 J41.0 Advair 250-50: one puff bidCombive nt Respimat 20-100: one puff tidalbuter ol HFA 1 puff q4h prnwill monitor Gastroesop hageal reflux disease without esophagitis 550203083 K21.9 famotidine 20 mg at hswill monitor Hypothyroidism 92038189 E03.8 levothyrox ine 75 mcg dailywill monitor History of malignant neoplasm of ovary 500908730 Z85.43 s/p DYLLAN, SBOhas refused further treatment Mixed anxi ety and depressive disorder 617801515 F41.8 mirtazapin e 15 mg at hswill monitor Vitamin deficiency 91666 002 E56.8 pyridoxine 100 mg dailythiam ine 100 mg dailyMVI dailywill monitor Osteoarthritis 475673011 M17.11 APAP 650 mg q6h prndiclofe nac topical gel to right knee prnBengay cream to right knee q8h prnlidocai ne patch 4% to right knee dailywill monitor [id number] KEILA BRASHER [address] [place] [address] 10/19/2021 12:58:57 10/24/2021 11:46:50 Chronic obstructive pulmonary disease 00654684 J41.0 monitor for any sob, O2 if needed advair 250/50 bid combivent 20/100 tid flonase daily albuterol prn loratadine 10mg daily Hypothyroidism 72621328 E03.8 levothyrox ine 75 mcg daily will monitor Mixed anxi ety and depressive disorder 328059143 F41.8 mirtazapin e 15 mg qd. monitor mood Follow with NEG as able. Pain in right knee 08219 07714 50615 M25.561 lidoderm patch right kneediclof enac gel bidtylenol 650 mg q6hr prn Tuberculosis 22181401 A1 8.89 combivent tid, advair 250/50 bid proair with spacer q 4h prn. O2 prn to maintain sats >90% Monitor respirator y function F/U with resp therapist and pulmonary as able. Gastroesop hageal reflux disease without esophagitis 925400653 K21.9 pepcid 20 mg daily Vitamin deficiency 14956 002 E56.9 mvi dailythiam ine 100 mg dailyB6 daily [id number] SON LEIJA NP [address] [address] 11/09/2021 09:05:30 11/15/2021 08:55:12 Chronic obstructive pulmonary disease 80582183 J41.0 monitor for any sob, O2 if needed advair 250/50 bid combivent 20/100 tid flonase daily albuterol prn loratadine 10mg daily Pain in right knee 88896 37463 99333 M25.561 lidoderm patch right kneediclof enac gel bidtylenol 650 mg q6hr prn [id number] SON LEIJA NP [address] [address] 11/10/2021 10:03:11 11/15/2021 10:48:07 SARS-CoV-2 620955773 U07.1 11/08 covid positive, asymptomat icPatient covid positiveco ntinue supportive caremonito r PO intake and need for supplement al R3abapwdd need for adjuvent therapyto ED for acute decompensa tion [id number] SON LEIJA NP [address] [address] 11/13/2021 12:31:35 11/15/2021 11:47:51 SARS-CoV-2 771727301 U07.1 11/08 covid positive, asymptomat ic-recover ed by datePatien t covid positive continue supportive care monitor PO intake and need for supplement al O2 monitor need for adjuvent therapy to ED for acute decompensa tion [id number] Toma Alvarado MD [address] [address] 12/22/2021 07:56:46 12/27/2021 16:02:07 Chronic obstructive pulmonary disease 32051392 J41.0 Advair 250-50: one puff bidCombive nt Respimat 20-100: one puff tidalbuter ol HFA 1 puff q4h prnwill monitor Gastroesop hageal reflux disease without esophagitis 854983923 K21.9 famotidine 20 mg at hswill monitor Hypothyroidism 70249045 E03.8 levothyrox ine 75 mcg dailywill monitor Mixed anxi ety and depressive disorder 325089943 F41.8 mirtazapin e 15 mg at hswill monitor SARS-CoV-2 040015613 U07 .1 tested positive 11/08/21asy mptomatic coursereco shelli will continue to monitor [id number] SON LEIJA NP [address] [address] 01/19/2022 08:44:18 01/23/2022 11:01:49 Chronic obstructive pulmonary disease 66376535 J41.0 monitor for any sob, O2 if needed advair 250/50 bid combivent 20/100 tid flonase daily albuterol prn loratadine 10mg daily Hypothyroidism 14250414 E03.8 levothyrox ine 75 mcg daily will monitor Mixed anxi ety and depressive disorder 174800660 F41.8 mirtazapin e 15 mg qd. monitor mood Follow with NEG as able. Pain in right knee 70993 37666 40659 M25.561 lidoderm patch right kneediclof enac gel bidtylenol 650 mg q6hr prn Tuberculosis 82840620 A1 8.89 combivent tid, advair 250/50 bid proair with spacer q 4h prn. O2 prn to maintain sats >90% Monitor respirator y function F/U with resp therapist and pulmonary as able. Gastroesop hageal reflux disease without esophagitis 456200226 K21.9 pepcid 20 mg daily Vitamin deficiency 75617 002 E56.9 mvi dailythiam ine 100 mg dailyB6 daily [id number] SON LEIJA NP [address] [address] 02/16/2022 11:50:24 02/20/2022 12:03:24 Chronic obstructive pulmonary disease 82570429 J41.0 monitor for any sob, O2 if needed advair 250/50 bid combivent 20/100 tid flonase daily albuterol prn loratadine 10mg daily Hypothyroidism 41435288 E03.8 levothyrox ine 75 mcg daily will monitor Mixed anxi ety and depressive disorder 124157954 F41.8 mirtazapin e 15 mg qd. monitor mood Follow with NEG as able. Pain in right knee 11316 74000 51238 M25.561 lidoderm patch right kneediclof enac gel bidtylenol 650 mg q6hr prn Tuberculosis 78240416 A1 8.89 combivent tid, advair 250/50 bid proair with spacer q 4h prn. O2 prn to maintain sats >90% Monitor respirator y function F/U with resp therapist and pulmonary as able. Gastroesop hageal reflux disease without esophagitis 099881295 K21.9 pepcid 20 mg daily Vitamin deficiency 57070 002 E56.9 mvi dailythiam ine 100 mg dailyB6 daily [id number] CHASE Eduardo [address] [address] 03/08/2022 11:23:24 03/13/2022 16:32:13 Cellulitis of finger of right hand [id number] 9713459 L03.011 bacitracin cream apply qd till healedmoni tor. [id number] Toma Alvarado MD [address] [address] 03/30/2022 08:39:42 04/03/2022 11:43:48 Chronic obstructive pulmonary disease 74601274 J41.0 Advair 250-50: one puff bidCombive nt Respimat 20-100: one puff tidalbuter ol HFA 1 puff q4h prnwill monitor Gastroesop hageal reflux disease without esophagitis 215713149 K21.9 famotidine 20 mg at hswill monitor Hypothyroidism 70140662 E03.8 levothyrox ine 75 mcg dailywill monitor Mixed anxi ety and depressive disorder 771311311 F41.8 mirtazapin e 15 mg at hswill monitor Vitamin deficiency 11574 002 E56.9 pyridoxine 100 mg dailythiam ine 100 mg dailyMVI dailywill monitor Osteoarthritis 245565049 M17.11 APAP 650 mg q6h prndiclofe nac topical gel to right knee bid prnBengay cream to right knee q8h prnlidocai ne patch 4% to right knee dailywill monitor [id number] SON LEIJA NP [address] [address] 05/23/2022 13:08:08 05/29/2022 16:22:19 Chronic obstructive pulmonary disease 67395890 J41.0 Advair 250-50: one puff bidCombive nt Respimat 20-100: one puff tidalbuter ol HFA 1 puff q4h prnwill monitor Gastroesop hageal reflux disease without esophagitis 969752358 K21.9 famotidine 20 mg at hswill monitor Hypothyroidism 97615458 E03.8 levothyrox ine 75 mcg dailywill monitor Mixed anxi ety and depressive disorder 639606458 F41.8 mirtazapin e 15 mg at hswill monitor Vitamin deficiency 65336 002 E56.9 pyridoxine 100 mg dailythiam ine 100 mg dailyMVI dailywill monitor Osteoarthritis 445306724 M17.11 APAP 650 mg q6h prndiclofe nac topical gel to right knee bid prnBengay cream to right knee q8h prnlidocai ne patch 4% to right knee dailywill monitor Tuberculosis 70591770 A1 8.89 combivent tid, advair 250/50 bid proair with spacer q 4h prn. O2 prn to maintain sats >90% Monitor respirator y function F/U with resp therapist and pulmonary as able. [id number] MD KAREN Morales [address] [place] [address] 07/13/2022 07:10:41 07/17/2022 14:08:46 Chronic obstructive pulmonary disease 51941666 J41.0 Advair 250-50: one puff bidCombive nt Respimat 20-100: one puff tidalbuter ol HFA 1 puff q4h prnwill monitor Hypothyroidism 31911715 E03.8 levothyrox ine 75 mcg dailywill monitor Mixed anxi ety and depressive disorder 856676492 F41.8 mirtazapin e 15 mg at hswill monitor Gastroesop hageal reflux disease without esophagitis 266519980 K21.9 famotidine 20 mg at hswill monitor History of malignant neoplasm of ovary 072245331 Z85.43 s/p DYLLAN, SBOhas refused further treatment [id number] SON GRIPPIN, [employer]OR[employer] CLERK KAREN [address] [address] 09/05/2022 17:06:29 09/11/2022 14:11:08 Chronic obstructive pulmonary disease 62798733 J41.0 Advair 250-50: one puff bidCombive nt Respimat 20-100: one puff tidalbuter ol HFA 1 puff q4h prnwill monitor Hypothyroidism 00641781 E03.8 levothyrox ine 75 mcg dailywill monitor Mixed anxi ety and depressive disorder 569103220 F41.8 mirtazapin e 15 mg at hswill monitor Gastroesop hageal reflux disease without esophagitis 977507315 K21.9 famotidine 20 mg at hswill monitor Tuberculosis 54618462 A1 8.89 combivent tid, advair 250/50 bid proair with spacer q 4h prn. O2 prn to maintain sats >90% Monitor respirator y function F/U with resp therapist and pulmonary as able. Toma Alvarado MD [address] [address] 12/07/2022 10:38:11 12/11/2022 08:03:41 Chronic obstructive pulmonary disease 08183770 J41.0 Advair 250-50: one puff bidCombive nt Respimat 20-100: one puff tidalbuter ol HFA 1 puff q4h prnwill monitor Mixed anxi ety and depressive disorder 790391387 F41.8 mirtazapin e 15 mg at hswill monitor Gastroesop hageal reflux disease without esophagitis 231919101 K21.9 famotidine 20 mg at hswill monitor Hypothyroidism 13605932 E03.8 levothyrox ine 75 mcg dailywill monitor Chronic pain 72934743 G8 9.29 diclofenac gel to right knee bid prnlidocai ne patch to right knee dailyAPAP 650 mg q6h prnwill monitor [id number] SON LEIJA NP [address] [address] 01/28/2023 14:21:07 01/31/2023 15:22:09 Chronic obstructive pulmonary disease 57565111 J41.0 Advair 250-50: one puff bidCombive nt Respimat 20-100: one puff tidalbuter ol HFA 1 puff q4h prnwill monitor Mixed anxi ety and depressive disorder 383957878 F41.8 mirtazapin e 15 mg at hswill monitor Gastroesop hageal reflux disease without esophagitis 356050721 K21.9 famotidine 20 mg at hswill monitor Hypothyroidism 44483515 E03.8 levothyrox ine 75 mcg dailywill monitor Chronic pain 36980591 G8 9.29 diclofenac gel to right knee bid prnlidocai ne patch to right knee dailyAPAP 650 mg q6h prnwill monitor [id number] SON LEIJA NP [address] [address] 02/15/2023 13:27:41 02/20/2023 16:52:34 Chronic obstructive pulmonary disease 21799323 J41.0 Advair 250-50: one puff bidCombive nt Respimat 20-100: one puff tidalbuter ol HFA 1 puff q4h prnwill monitor Mixed anxi ety and depressive disorder 593128802 F41.8 mirtazapin e 15 mg at hswill monitor Gastroesop hageal reflux disease without esophagitis 231457291 K21.9 famotidine 20 mg at hswill monitor Hypothyroidism 80234282 E03.8 levothyrox ine 75 mcg dailywill monitor Chronic pain 31415799 G8 9.29 diclofenac gel to right knee bid prnlidocai ne patch to right knee dailyAPAP 650 mg q6h prnwill monitor Vitamin deficiency 80016 002 E56.9 pyridoxine 100 mg dailythiam ine 100 mg dailyMVI dailywill monitor [id number] MD KAREN Pope WERO [address] [place] [address] 03/28/2023 13:20:05 04/11/2023 13:24:13 Chronic obstructive pulmonary disease 44978519 J41.0 No current sxs.Contin ue Advair 250/50 BID, Combivent Respimat 1 puff TID and albuterol HFA 1 puff q 4 hrs prnMonitor resp. status. Mixed anxi ety and depressive disorder 989538057 F41.8 Mood good today.Cont inue mirtazapin e 15 mg at hsMonitor moodPsych follows, no GDR recommende d. Gastroesop hageal reflux disease without esophagitis 912331896 K21.9 Under good controlCon tinue famotidine 20 mg at hsMonitor for sxs Hypothyroidism 23619150 E03.8 Last TSH 02/2021 was WNLContinu e levothyrox ine 75 mcg dailyMonit or TSH yearly, will order with next labs. Chronic pain 19778681 G8 9.29 She says pain is adequately controlled .Continue diclofenac gel to right knee BID prn, lidocaine patch to right knee daily and APAP 650 mg q 6 hrs prnMonitor sxs. Vitamin deficiency 47966 002 E56.8 Continue pyridoxine 100 mg daily, thiamine 100 mg daily, and MVI dailyNo monitoring needed. [id number] KEILA BRASHER WERO [address] [place] [address] 04/05/2023 13:30:53 04/11/2023 13:56:07 Chronic obstructive pulmonary disease 32686668 J41.0 Advair 250-50: one puff bidCombive nt Respimat 20-100: one puff tidalbuter ol HFA 1 puff q4h prnwill monitor Mixed anxi ety and depressive disorder 671591991 F41.8 mirtazapin e 15 mg at hswill monitor [id number] SON LEIJA NP [address] [address] 05/17/2023 10:17:44 05/21/2023 16:07:38 Chronic obstructive pulmonary disease 98391369 J41.0 Advair 250-50: one puff bidCombive nt Respimat 20-100: one puff tidalbuter ol HFA 1 puff q4h prnwill monitor Mixed anxi ety and depressive disorder 324302730 F41.8 mirtazapin e 15 mg at hswill monitor Gastroesop hageal reflux disease without esophagitis 959311836 K21.9 famotidine 20 mg at hswill monitor Hypothyroidism 91896467 E03.8 levothyrox ine 75 mcg dailywill monitor Chronic pain 49472717 G8 9.29 diclofenac gel to right knee bid prnlidocai ne patch to right knee dailyAPAP 650 mg q6h prnwill monitor Vitamin deficiency 79778 002 E56.9 pyridoxine 100 mg dailythiam ine 100 mg dailyMVI dailywill monitor [id number] SON LEIJA NP KAREN CONTEH [address] [place] [address] [place] [address] 07/08/2023 13:04:17 07/09/2023 20:04:53 Pain of left knee region 0225751430 92615 M25.562 tylenol prnxray of left kneePT OT eval and treat prn [id number] Kianna Alvarez MD [facility] [address] [place] [address] 08/16/2023 13:59:50 08/20/2023 11:12:11 Pain of left knee region 2844331756 68043 M25.562 Says it's much better.Con tinue diclofenac gel 4 gms BID and APAP 650 mg q 6 hrs prn.Monito r sxs. Chronic ob structive pulmonary disease 07336371 J41.0 Continues at mild baseline.C ontinue Advair 250/50 BID, Combivent Respimat 1 puff TID and albuterol HFA 1 puff q 4 hrs prnMonitor resp. status. Mixed anxi ety and depressive disorder 756915368 F41.8 Mood remains good at most times.Cont inue mirtazapin e 15 mg qhsMonitor moodPsych continues to follow intermitte ntly, no GDR recommende d. Gastroesop hageal reflux disease without esophagitis 626412245 K21.9 No current sxs.Contin ue famotidine 20 mg qhsMonitor for sxs Hypothyroidism 73067449 E03.8 Last TSH was in ont inue levothyrox ine 75 mcg dailyMonit or TSH yearly, will order with next labs. Chronic pain 59208572 G8 9.29 As above.Also gets lidocaine patch to right knee daily.Elsy tor [id number] SON LEIJA NP KAREN CONTEH [address] [place] [address] [place] [address] 10/09/2023 13:25:53 10/22/2023 10:00:48 Chronic obstructive pulmonary disease 46093507 J41.0 Advair 250-50: one puff bidCombive nt Respimat 20-100: one puff tidalbuter ol HFA 1 puff q4h prnwill monitor Mixed anxi ety and depressive disorder 199810210 F41.8 mirtazapin e 15 mg at hswill monitor Gastroesop hageal reflux disease without esophagitis 663998512 K21.9 famotidine 20 mg at hswill monitor Hypothyroidism 42940729 E03.8 levothyrox ine 75 mcg dailywill monitor Chronic pain 63935889 G8 9.29 diclofenac gel to right knee bid prnlidocai ne patch to right knee dailyAPAP 650 mg q6h prnwill monitor Vitamin deficiency 33926 002 E56.9 pyridoxine 100 mg dailythiam ine 100 mg dailyMVI dailywill monitor [id number] CHASE CHE [address] [place] [address] 10/23/2023 11:46:55 10/30/2023 12:50:00 Contact dermatitis 16984256 L25.9 see hpihydroco rtisone 1% bid for 5 days and re evalPatien t encouraged to avoid scratching or touching affected areanursin g to offer prn tylenol for discomfort . [id number] MD KAREN Pope [address] [place] [address] 12/10/2023 16:27:11 01/13/2024 15:10:49 Pain of left knee region 2171099613 02699 M25.562 Continues to do well with diclofenac gel 4 gms BID and APAP 650 mg q 6 hrs prn.Monito r sxs. Chronic ob structive pulmonary disease 28034534 J43.8 No recent exacerbati ons.Contin ue Advair 250/50 BID, Combivent Respimat 1 puff TID and albuterol HFA 1 puff q 4 hrs prnMonitor resp. status. Mixed anxi ety and depressive disorder 563632198 F41.8 Mood is stable, enjoys activities .Continue mirtazapin e 15 mg qhsMonitor moodPsych follows, last seen on 12/15 with no rec for med changes. Gastroesop hageal reflux disease without esophagitis 328353223 K21.9 No current sxs.Contin ue famotidine 20 mg qhsMonitor for sxs Hypothyroidism 38393885 E03.8 Last TSH in 08/2023 was sl. low at 0.17, no FT4 checked and no recheck done.Mandi nue levothyrox ine 75 mcg qd for nowRecheck TSH with FT4. Chronic pain 17092438 G8 9.29 As above.Also gets lidocaine patch to right knee daily.Elsy tor [id number] CHASE CHE [address] [address] 01/30/2024 11:16:15 02/04/2024 12:17:43 Chronic obstructive pulmonary disease 59823778 J43.8 stableCont inue Advair 250/50 BID,contin ue Combivent Respimat 1 puff TIDcontinu e albuterol HFA 1 puff q 4 hrs prnMonitor resp. status. Mixed anxi ety and depressive disorder 487823804 F41.8 Continue mirtazapin e 15 mg qhsMonitor mood Gastroesop hageal reflux disease without esophagitis 735172532 K21.9 Continue famotidine 20 mg qhsMonitor for sxs Hypothyroidism 41014953 E03.8 Continue levothyrox ine 75 mcg qdmonitor labs prn Chronic pain 19396276 G8 9.29 As above.Also gets lidocaine patch to right knee daily.Elsy tor [id number] CHASE CHE [address] [address] 03/12/2024 09:49:24 03/25/2024 14:50:38 Chronic obstructive pulmonary disease 27970035 J43.8 stableCont inue Advair 250/50 BID,contin ue Combivent Respimat 1 puff TIDcontinu e albuterol HFA 1 puff q 4 hrs prnMonitor resp. status. Mixed anxi ety and depressive disorder 292320173 F41.8 Continue mirtazapin e 15 mg qhsMonitor mood Gastroesop hageal reflux disease without esophagitis 890262592 K21.9 Continue famotidine 20 mg qhsMonitor for sxs Hypothyroidism 97208128 E03.8 Continue levothyrox ine 75 mcg qdmonitor labs prn Chronic pain 74008315 G8 9.29 As above.Also gets lidocaine patch to right knee daily.Elsy tor Vitamin deficiency 61594 002 E56.9 continue pyridoxine 100 mg daily ,thiamine 100 mg daily ,MVI daily Pain of knee region 1003 650543 M25.569 lidoderm patch right kneediclof enac gel bidtylenol 650 mg q6hr prn [id number] MD KAREN Pope [address] [place] [address] [place] [address] 04/17/2024 21:47:21 05/05/2024 07:56:21 Chronic obstructive pulmonary disease 45897254 J43.8 No recent exacerbati ons.Contin ue Advair 250/50 BID, Combivent Respimat 1 puff TID and albuterol HFA 1 puff q 4 hrs prnMonitor resp. status. Mixed anxi ety and depressive disorder 732473999 F41.8 Mood good tonight.Co ntinue mirtazapin e 15 mg qhsMonitor moodPsych follows, last seen on 03/23/24 with no rec for med changes. Gastroesop hageal reflux disease without esophagitis 303306402 K21.9 No current sxs.Contin ue famotidine 20 mg qhsMonitor for GI sxs Pain of le ft knee region 5826126601 76132 M25.562 Continues to do well with diclofenac gel 4 gms BID and APAP 650 mg q 6 hrs prn.Also uses lidocaine patch on right knee.Monit or sxs. Hypothyroidism 32835285 E03.8 Last TSH remains sl. low at 0.12, but with normal FT4.Contin ue levothyrox ine 75 mcg qd for nowRecheck TSH with FT4 in 3 months. Chronic pain 52648842 G8 9.29 As above.Elsy tor sxs [id number] [facility] [address] [place] [address] 05/14/2024 13:40:54 05/19/2024 13:06:16 Psoriasis 9137613 L40.9 Pruritic half dollar size, scaly red patch noted at base of hairline/ nap of neckwill add triamcinol one cream BID for 14 daysmonito r for resolution . [id number] CHASE CHE [address] [place] [address] 05/19/2024 10:01:52 05/20/2024 14:50:20 Psoriasis 6820321 L40.9 Pruritic half dollar size, scaly red patch noted at base of hairline/ nap of neck- improvingc ontinue triamcinol one cream BID for 14 daysmonito r for resolution . [id number] [facility] [address] [place] [address] 06/03/2024 13:59:00 06/05/2024 10:24:55 Chronic obstructive pulmonary disease 39406448 J43.8 stableCont inue Advair 250/50 BID,contin ue Combivent Respimat 1 puff TIDcontinu e albuterol HFA 1 puff q 4 hrs prnMonitor resp. status. Mixed anxi ety and depressive disorder 688031805 F41.8 mood has been stableCont inue mirtazapin e 15 mg qhspsych prn Gastroesop hageal reflux disease without esophagitis 426185808 K21.9 Continue famotidine 20 mg qhsMonitor for sxs Hypothyroidism 98396797 E03.8 Continue levothyrox ine 75 mcg qdmonitor labs prn Chronic pain 36340172 G8 9.29 As above.Also gets lidocaine patch to right knee daily.Elsy tor Vitamin deficiency 33474 002 E56.9 continue pyridoxine 100 mg daily ,thiamine 100 mg daily ,MVI daily Pain of knee region 1003 629945 M25.569 lidoderm patch right kneediclof enac gel bidtylenol 650 mg q6hr prn Psoriasis 4433264 L40.9 resolved [id number] [facility] [address] [place] [address] 07/23/2024 10:20:41 07/28/2024 15:44:44 Chronic obstructive pulmonary disease 48998287 J43.8 stableCont inue Advair 250/50 BID,contin ue Combivent Respimat 1 puff TIDcontinu e albuterol HFA 1 puff q 4 hrs prnMonitor resp. status. Mixed anxi ety and depressive disorder 354704924 F41.8 mood has been stableCont inue mirtazapin e 15 mg qhspsych prn Gastroesop hageal reflux disease without esophagitis 470432727 K21.9 Continue famotidine 20 mg qhsMonitor for sxs Hypothyroidism 10792712 E03.8 Continue levothyrox ine 75 mcg qdmonitor labs prn Chronic pain 88515201 G8 9.29 As above.Also gets lidocaine patch to right knee daily.Elsy tor Vitamin deficiency 34198 002 E56.9 continue pyridoxine 100 mg daily ,thiamine 100 mg daily ,MVI daily Pain of knee region 1003 183917 M25.569 stable.lid oderm patch right kneediclof enac gel bidtylenol 650 mg q6hr prn Psoriasis 7690001 L40.9 resolved [id number] [facility] [address] [place] [address] 09/14/2024 12:31:36 09/22/2024 14:14:59 Chronic obstructive pulmonary disease 04831571 J43.8 stableCont inue Advair 250/50 BID,contin ue Combivent Respimat 1 puff TIDcontinu e albuterol HFA 1 puff q 4 hrs prnMonitor resp. status. Mixed anxi ety and depressive disorder 465509051 F41.8 mood has been stableCont inue mirtazapin e 15 mg qhspsych prn Gastroesop hageal reflux disease without esophagitis 771265861 K21.9 Continue famotidine 20 mg qhsMonitor for sxs Hypothyroidism 87445625 E03.8 Continue levothyrox ine 75 mcg qdmonitor labs prn Chronic pain 92349164 G8 9.29 As above.Also gets lidocaine patch to right knee daily.Elsy tor Vitamin deficiency 64501 002 E56.9 continue pyridoxine 100 mg daily ,thiamine 100 mg daily ,MVI daily Pain of knee region 1003 018199 M25.569 stable.lid oderm patch right kneediclof enac gel bidtylenol 650 mg q6hr prn [id number] [facility] [address] [place] [address] 10/12/2024 10:37:58 10/13/2024 13:55:23 COVID-19 [id number] U07.1 we discussed antiviral, she is not interested ,s she reports that she is feeling better todaywill add prn robitussin and oxygen as wellcontin ue supportive therapy( tylenol, oxygen, robitussin ordered.)i ncrease fluids encouraged discussed with nursing, update provider with changes. [id number] [facility] [address] [place] [address] 01/10/2025 10:55:53 01/14/2025 16:09:23 Chronic obstructive pulmonary disease 01581648 J43.8 stableCont inue Advair 250/50 BID,contin ue Combivent Respimat 1 puff TIDcontinu e albuterol HFA 1 puff q 4 hrs prnMonitor resp. status. 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.8 stableCont inue mirtazapin e 15 mg qhspsych prn Gastroesop hageal reflux disease without esophagitis 687702939 K21.9 stable/Con tinue famotidine 20 mg qhsMonitor for sxs Hypothyroidism 22856195 E03.8 Continue levothyrox ine 75 mcg qdmonitor labs prn Chronic pain 75129029 G8 9.29 stableAlso gets lidocaine patch to right knee daily.Elsy tor Vitamin deficiency 04490 002 E56.9 continue pyridoxine 100 mg daily ,thiamine 100 mg daily ,MVI daily Pain of knee region 1003 932524 M25.569 stable.lid oderm patch right kneediclof enac gel bidtylenol 650 mg q6hr prn [id number] Abhinav Gage MD [facility] [address] 04/05/2025 11:54:28 04/07/2025 10:01:04 Cellulitis of face 483811731 L03.627 9641531 left perioccula r cellultis developing over past 24 hoursconce rn for bacterial etiologyst art augmentin 875 mb bid x 10 dayprobiot ic bid x 2 weekscbc bmp orderedben adryl 25 mg q 6 prnmonitor for change [id number] [facility] [address] [place] [address] 04/21/2025 05:52:11 04/22/2025 11:06:56 Acute abdominal pain 119645176 R10.9 03281 reports times 1 week associated with nausea and vomiting and diarrhea.r eports flatulence , bloatinghy poactive BS notedLast BM was small a few days agowill get KUB, UA and labscontin ue zofran Chronic ob structive pulmonary disease 45787797 J43.8 stableCont inue Advair 250/50 BID,contin ue Combivent Respimat 1 puff TIDcontinu e albuterol HFA 1 puff q 4 hrs prnMonitor resp. status. Mixed anxi ety and depressive disorder 195292065 F41.8 stableCont inue mirtazapin e 15 mg qhspsych prn Gastroesop hageal reflux disease without esophagitis 983119911 K21.9 stable/Con tinue famotidine 20 mg qhsMonitor for sxs Hypothyroidism 90297477 E03.8 Continue levothyrox ine 75 mcg qdmonitor labs prn Chronic pain 73172903 G8 9.29 stableAlso gets lidocaine patch to right knee daily.Elsy tor Vitamin deficiency 34299 002 E56.9 continue pyridoxine 100 mg daily ,thiamine 100 mg daily ,MVI daily Pain of knee region 1003 636531 M25.569 stable.lid oderm patch right kneediclof enac gel bidtylenol 650 mg q6hr prn 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 noted ith residual rednesscom pleted acyclovir Health Concerns Section Related Observation LastModified by Organization Detai ls LastModified Time None Recorded Concern Status LastModified by Organization Details LastModified Time None Recorded Advance Directives Directive Y: DNI otherwise full code Payers Insurance Date Sequence Insurance Name Policy Number Policy Martino Covered Member ID Martino Member ID Guarantor Name 04/21/2025 2 [place] [facility] Brittanie Call [id number] Brittanie Call 04/21/2025 1 [place] [employer] Brittanie Call [id number] Brittanie Call Notes Date Note Type Note [...] no concerns with elimination. [facility] [address], [address], [place], [address], [employer] 09/18/2024 18:11:40 10/12/2024 text/html ROS as noted [...] covid. reportable sx reviewed. [facility] [address], [address], [place], [address], [employer] 10/12/2024 15:53:56 01/10/2025 text/html ROS as noted [...] is no acute concerns. [facility] [address], [address], [place], [address], [facility] 01/11/2025 10:18:20 04/05/2025 text/html Patient is an 84 yo female LTC resident seen for MD visit. Over the past 24 hours has developed left jose guadalupe orbital inflammation and erythema. Abhinav Gage MD [address], [address], [place], [address], [facility] 04/05/2025 12:00:01 04/21/2025 text/html ROS as [...] r/o obstruction and or infectious causes. [facility] [address], [address], [place], [address], [facility] 04/21/2025 13:24:40 OBGyn Episode No OBEpisode recorded.
[2025-07-23 06:16] LABS: Anion Gap 8 (12-20); Blood Urea Nitrogen 16 mg/dL (9-16); Calcium 8.5 mg/dL (8.4-10.2); Carbon Dioxide 23 mmol/L (22-29); Chloride 111 mmol/L (96-108); Estimated Glomerular Filt Rate > 60; Potassium 4.0 mmol/L (3.3-5.1); Sodium 138 mmol/L (135-145)
[2025-07-23 06:24] LABS: PTH Intact Intraoperative 104.8 pg/mL (8.7-77.1)
[2025-07-23 06:41] LABS: Hematocrit 37.6 % (37.0-47.0); Hemoglobin 12.1 g/dl (12.0-16.0); Imm Gran Abs Auto 0.04 X10*3/uL (0.00-0.03); Imm Gran Pct Auto 0.7 % (0.0-0.4); Lymphocytes Absolute Auto 1.9 X10*3/uL (1.2-4.9); Mean Corpuscular HGB Conc 32.2 g/dl (31.0-35.0); Mean Corpuscular Hemoglobin 30.0 pg (27.0-33.0); Mean Corpuscular Volume 93.3 fL (80.0-98.0); NRBC Abs Auto 0.000 X10*3/uL (0.0-0.012); NRBC Pct Auto 0.0 /100WBC (0.0-0.2); Platelet Count 235 X10*3/uL (160-400); Red Blood Count 4.03 X10*6/uL (4.20-5.50); White Blood Count 5.9 X10*3/uL (4.8-10.8)
== END 2025-07-23 05:45 | disposition home or self-care (01) ==
LOC: HO.MMNH3L 05:44
PROVIDERS: Visit Provider Physician Assistant Medical
DX: J44.9 Chronic obstructive pulmonary disease, unspecified (principal)
CPT/HCPCS: 36415; 80048; 83970; 85025

== ENCOUNTER 2025-09-07 05:32 | Outpatient (REF) | payer MEDICARE, SELFPAY ==
--- OUTSIDE RECORDS SUMMARY | 2025-09-07 05:36 | XMS_ITS | Clinical Summary ---
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
--- OUTSIDE RECORDS SUMMARY | 2025-09-07 05:36 | XMS_ITS | Data Portability ---
Author Organization [facility], Main Office Address [address] [facility] [address] [place] [address] Care Team Providers Care Package Sorter Name Role Phone KAREN CONTEH 3RD FLOOR [...] Address Organization Details Recorded Time Tuberculos is 04251164 [facility] 10[facility] Healthcare associated bacterial pneumonia 736395397 Active [facility] 10:16:18 Diagnostic pneumomedi astinum Active 2018 Hina gonzalez, [facility] 9 10:16:34 Severe protein-ca yobani malnutriti on (Bell: less than 60 percent of standard weight) 553304275 Active 2018 Hina gonzalez, [facility] 9 10:17:04 Mediastina l emphysema 94682422 Active 2018 Hina gonzalez, [facility] 9 10:17:42 History of malignant neoplasm of ovary 949377155 Active 2018 Hinamarie gonzalez, [facility] 9 10:18:05 Mixed anxiety and depressive disorder 225209324 Active 2018 Nichelle gonzalez, [facility] 9 10:56:15 Chronic obstructiv e pulmonary disease 72762973 Active 2019 Kianna Alvarez MD [address] [facility], [address], [place], [address] , [facility] 0 22:40:16 Hypothyroi dism 18323545 Active 2019 Toma Alvarado MD [address] [facility], [address], [place], [address] , [facility] 0 09:30:52 SARS-CoV-2 Active 2019 SON LEIJA NP [address] [facility], [address], [place], [address] , [facility] 0 11:35:17 Pain in right knee Active 2020 SON LEIJA NP [address] [facility], [address], [place], [address] , [facility] 1 13:53:06 Gastroesop hageal reflux disease without esophagiti s 724815216 Active 2020 SON LEIJA NP [address] [facility], [address], [place], [address] , [facility] 1 12:16:37 Vitamin deficiency 11214358 Active 2020 SON LEIJA NP [address] [facility], [address], [place], [address] , [facility] 1 12:17:06 Pain of left knee region 5133176085781 09 Active 2022 SON LEIJA NP [address] [facility], [address], [place], [address] , [facility] 3 13:05:00 Chronic pain 26327663 Active 2023 Kianna Alvarez MD [address] [facility], [address], [place], [address] , [facility] 4 11:01:01 Problem Notes None recorded. Medical Equipment None Reported. Allergies No known drug allergies Medications Not known to be on any medication Vitals Date Recorded Body height Heart rate Respiratory rate Body temperature Oxygen saturation Systolic And Diastolic Provider Name and Address Organization Details Last Updated DateTime 5 149.86 cm 78 /min 18 /min 97.7 [degF] 94 % 118/67 mm[Hg] [facility] [address] [facility], [address], [place], [address], [facility] 5 10:17:43 Date Recorded Body height Respiratory rate Body temperature Oxygen saturation Heart rate Systolic And Diastolic Provider Name and Address Organization Details Last Updated DateTime 5 149.86 cm 18 /min 97.2 [degF] 96 % 74 /min 120/85 mm[Hg] [facility] [address] [facility], [address], [place], [address], [facility] 5 13:08:28 Date Recorded Body height Heart rate Respiratory rate Body temperature Oxygen saturation Systolic And Diastolic Provider Name and Address Organization Details Last Updated DateTime 4 149.86 cm 75 /min 18 /min 98 [degF] 98 % 131/69 mm[Hg] [facility] [address] [facility], [address], [place], [address], [facility] 4 18:09:49 Date Recorded Body height Heart rate Respiratory rate Body temperature Oxygen saturation Systolic And Diastolic Provider Name and Address Organization Details Last Updated DateTime 4 149.86 cm 68 /min 18 /min 97.1 [degF] 96 % 134/70 mm[Hg] [facility] [address] [facility], [address], [place], [address], [facility] 4 15:34:38 Social History Question Answer Notes LastModified by Organizat ion Details LastModified Time Tobacco Smoking Status Former Smoker smoked 1.5 ppd, quit many yrs ago Kianna Alvarez MD [address] [facility], [address], [place], [address], [facility] 08/16/2023 17:37:37 Do You Have An Advance Directive? Yes DNI Otherwise Full Code [id number] Information not available 08/09/2020 How Much Tobacco Do You Chew? None [id number] Information not available 08/09/2020 What Is Your Code Status? DNI Information not available 03/28/2023 Where Do You Live? [facility] Information not available 03/28/2023 Legal Guardian? No Informati on not available 03/28/2023 Do You Have A Medical Power Of Property Investor? Yes Not Invoked Information not available 03/28/2023 [...] Many Years Have You Smoked Tobacco? 60 [id number] Information not available 08/09/2020 Sex: Unknown Functional Status Question Answer Note LastModified by Organizat ion Details LastModified Time Do you use any illicit or recreational drugs? No Information not available 03/28/2023 Do you or have you ever used any other forms of tobacco or nicotine? No Information not available 03/28/2023 What is your level of alcohol consumption? None [id number] Information not available 08/09/2020 Do you or have you ever used smokeless tobacco? Never used smokeless tobacco [id number] Information not available 08/09/2020 Do you or have you ever used e-cigarettes or vape? Never used electronic cigarettes [id number] Information not available 08/09/2020 Mental Status None recorded. Family History Relationship Description Onset Age of this Age Resolved Age Notes LastModified by Organization Details LastModified Time Father No [facility] problems [facility] Not available 08/21 09:44:07 Mother No current problems or disability iroua Not available 08/21 09:44:07 Notes:N/C Medical History No medical history recorded. Gynecological HistoryNo gynecological history recorded. Obstetrics History GPAL:G 0 P 0 0 0 0 Immunizations Vaccine Type Date Status Note Provider Nam e and Address Organization Details Recorded Time Influenza, adjuvanted, quadrivalent, PF 08/27/2022 completed Gabriela gonzalez, [facility] 11/01/2023 11:51:08 Influenza, adjuvanted, quadrivalent, PF 05/20/2023 completed Gabriela gonzalez [facility] 11/01/2023 11:51:23 Past Encounters Encounter ID Performer Location Encounter Start Date Encounter Closed Date Diagnosis/Indication Diagnosis SNOMED-CT Code Diagnosis ICD10 Code Diagnosis IMO Codes Diagnosis Note [id number] ROMY PINEDA [address] [place], [place] [address] [address] 08/21/2019 09:44:29 09/01/2019 10:32:18 Tuberculosis 24288015 A18.89 continue Isoniazid, Rifampin, Pyrazinami de, Pyridoxine f/u at [facility] TB clinic on 08/25. Healthcare associated bacterial pneumonia 193034442 Y95 completed abx txcontinue brovana, pulmicort, duonebs scheduled and prn albuterolp ulmo and RT to follow here. 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 Mediastinal emphysema 16 299764 J98.2 pneumomedi astinum related to infection/ bronchosco pyno interventi on neededif resp sx develop will repeat cxr/CT chest Physical deconditioning 9406714890 9102 R68.89 PT/OT eval. [id number] Abhinav Gage MD KAREN WERO [address] [place] [address] [place] [address] 08/24/2019 08:02:58 09/01/2019 10:59:44 Tuberculosis 73731712 A15.0 see HPIfollchristian d by ID of note in hospital case discussed with dept of public health ID and determined it was safe to take patient off airborne precaution s as she had been treated for > 14 days[facility] courseadd probioticu pdate ID with change in presentati onmonitor respirator y function Healthcare associated bacterial pneumonia 341326156 Y95 see HPIcomplet ed vanco and zosynsee above Asthenia 80361934 R53.1 PT OT eval and treatmonit or fall risk Severe protein-calorie malnutrition (Bell: less than 60 percent of standard weight) 962699066 E41 carrying dx from hospitaldi etary evalmonito r weights and PO intake History of malignant neoplasm of ovary 749241402 Z85.43 added to PMH [id number] Nichelle Dooley NP KAREN WERO [address] [place] [address] [place] [address] 09/01/2019 07:19:48 09/04/2019 15:23:56 Tuberculosis [id number] A15.0 see HPIfojaida d by ID of note in hospital case discussed with dept of public health ID and determined it was safe to take patient off airborne precaution s as she had been treated for > 14 daysf/u with [facility] current Ab courseprob ioticupdat e ID with change in presentati onmonitor respirator y function Healthcare associated bacterial pneumonia 916037837 Y95 see HPIcomplet ed vanco and zosynsee above Asthenia 09579072 R53.1 PT OT eval and treatmonit or fall risk Severe protein-calorie malnutrition (Bell: less than 60 percent of standard weight) 798354293 E41 carrying dx from hospitaldi etary eval pt has gained 2 lbs in the past week according to weekly weight data, has good reported appetite. monitor weights and PO intake [id number] Nichelle Dooley NP [facility] [address] [place] [address] 09/08/2019 07:58:08 09/17/2019 14:56:26 Tuberculosis 07353657 A15.0 see Jalen garibay by ID of [...] respirator y function Healthcare associated bacterial pneumonia 027345335 Y95 see HPIcomplet ed vanco and zosynsee above Asthenia 11113694 R53.1 PT OT eval and treatmonit or fall risk Severe protein-calorie malnutrition (Bell: less than 60 percent of standard weight) 239366053 E41 carrying dx from hospitaldi etary eval pt has good reported appetite. monitor weights [place] PO intake [id number] KEILA Sepulveda WERO [address] [place] [address] [place] [address] 09/15/2019 07:35:21 09/23/2019 11:38:11 Tuberculosis [id number] A15.0 see Jalen garibay by TB clinic [...] respirator y function Healthcare associated bacterial pneumonia 556744957 Y95 see HPIcomplet ed vanco and zosynsee above Asthenia 40322679 R53.1 PT OT eval and treatmonit or fall risk Severe protein-calorie malnutrition (Bell: less than 60 percent of standard weight) 859963450 E41 carrying dx from hospitaldi etary eval- pt now on ensures pt has good reported appetite. monitor weights and PO intake [id number] Nichelle Dooley NP KAREN WERO [address] [place] [address] 09/22/2019 09:39:42 09/29/2019 09:21:51 Tuberculosis [id number] A15.0 see HPIcorina d by TB clinic of note in [...] O2 orders monitor respirator y function Asthenia 04843503 R53.1 Pt has been DCd from PT- she has reached her baseline, only walking about 30 ft with walker, varies with transfers. monitor fall risk Severe protein-calorie malnutrition (Bell: less than 60 percent of standard weight) 950382901 E41 carrying dx from hospital has lost about 9lbs in the past month pt on ensures tid will increase mirtazapin e to 15mg qd today monitor ?weight loss due to ovarian cancer History of malignant neoplasm of ovary 141661966 Z85.43 added to PMH Per family the pt had one day of treatment for this and then never followed up with this- she refused care. Mixed anxi ety and depressive disorder 697358203 F41.8 will order psych eval today monitor mood [id number] KEILA Sepulveda [address] [place] [address] 09/28/2019 07:22:29 10/01/2019 14:27:45 Tuberculosis 26257934 A15.0 see HPI stable. followed by TB [...] O2 orders monitor respirator y function Asthenia 76971399 R53.1 Pt has been DCd from PT- she has reached her baseline, only walking about 30 ft with walker, varies with transfers. monitor fall risk Severe protein-calorie malnutrition (Bell: less than 60 percent of standard weight) 807110854 E41 carrying dx from hospital has lost over 10lbs since her admission, however she appears to have leveled out. pt on ensures tid mirtazapin e increased to 15mg qd last week continue to monitor ?weight loss due to ovarian cancer History of malignant neoplasm of ovary 334342014 Z85.43 added to PMH Per family the pt had one day of treatment for this and then never followed up with this- she refused care. Mixed anxi ety and depressive disorder 289108554 F41.8 awaiting psych eval monitor mood [id number] KEILA Sepulveda WERO [address] [place] [address] 10/08/2019 07:24:07 10/12/2019 16:27:09 Tuberculosis 32491674 A15.0 see HPI stable. followed by TB [...] less than 60 percent of standard weight) 633544411 E41 carrying dx from hospital has lost over 7lbs since her admission, appears to be stable at this time.pt on ensures tid mirtazapin e 15mg qd continue to monitor History of malignant neoplasm of ovary 225788870 Z85.43 added to PMH Per family the pt had one day of treatment for this and then never followed up with this- she refused care. Mixed anxi ety and depressive disorder 362974102 F41.8 pt recently seen by [facility], no consult notes in chart yet monitor mood [id number] Nichelle Dooley NP [address] [address] 10/12/2019 08:06:04 10/16/2019 13:50:57 Tuberculosis 04824014 A15.0 see HPI stable. followed by TB [...] less than 60 percent of standard weight) 939595959 E41 carrying dx from hospital pt on ensures tid mirtazapin e 15mg qd pt had initially lost weight, now improving continue to monitor Mixed anxi ety and depressive disorder 750863264 F41.8 pt recently seen by [facility], awaiting consult notes. monitor mood History of malignant neoplasm of ovary 246309820 Z85.43 added to PMH Per family the pt had one day of treatment for this and then never followed up with this- she refused care. [id number] KEILA Sepulveda [address] [facility] [place] [address] 10/19/2019 08:10:14 10/22/2019 14:29:13 Tuberculosis 38862942 A15.0 see HPI stable. followed by TB [...] less than 60 percent of standard weight) 948534585 E41 carrying dx from hospital pt on ensures tid mirtazapin e 15mg qd pt had initially lost weight, now improving continue to monitor Mixed anxi ety and depressive disorder 527702018 F41.8 mirtazapin e 15mg qd monitor mood psych following History of malignant neoplasm of ovary 974326898 Z85.43 added to PMH Per family the pt had one day of treatment for this and then never followed up with this- she refused care. [id number] MD KAREN Cooper [address] [address] 11/18/2019 15:07:44 11/22/2019 15:31:49 Tuberculosis 03714073 A15.0 followed by ID [facility] Ab courseupda te ID with change in presentati onmonitor respirator y functioncu rrently stable at baseline Nausea and vomiting 1692 1999 R11.2 appears secondary to medication administra tibooll have patient take zofran priormonit or for sx control [id number] Nichelle Dooley NP [address] [address] 12/01/2019 12:14:48 12/11/2019 14:40:43 Tuberculosis 46129573 A15.0 followed by ID seen by tb [...] less than 60 percent of standard weight) 196667907 E41 carrying dx from hospital pt on ensures tid mirtazapin e 15mg qd pt continues to have weight loss recent DC of abx as above may be helpful, as these were likely causing her some nausea continue to monitor weights bi-weekly for 4 weeks Mixed anxi ety and depressive disorder 341646260 F41.8 mirtazapin e 15mg qd monitor mood psych following History of malignant neoplasm of ovary 723766258 Z85.43 added to PMH Per family the pt had one day of treatment for this and then never followed up with this- she refused care. [id number] KEILA Sepulveda WERO [address] [place] [address] [place] [address] 12/29/2019 12:37:57 01/01/2020 15:52:34 Cough 21793039 R05 With associated chills, fatigue, body aches. Will check for flu and resp viral panel, cbc/cmp of note there is a resident on the floor +for flu A encourage fluids supportive care continue to monitor [id number] Nichelle Dooley NP KAREN CONTEH [address] [place] [address] [place] [address] 01/15/2020 14:07:52 01/21/2020 13:07:58 Tuberculosis 29851579 A15.0 followed by ID continues on multiple [...] on site prn currently stable at baseline [id number] Kianna Alvarez MD KAREN CONTEH [address] [place] [address] [place] [address] 01/22/2020 17:32:59 01/28/2020 18:46:52 Tuberculosis 80832792 A15.0 She is on ethambutol 800 mg [...] less than 60 percent of standard weight) 297604045 E41 She has lost 20# since here. BMI still in nl. range. Was given this dx in the hospital. Continue ensure TID and mirtazapin e 15 mg qd Continue to monitor weights Mixed anxi ety and depressive disorder 164089606 F41.8 Mood good today. Continue mirtazapin e 15 mg qd. monitor mood Follow with NEG as able. History of malignant neoplasm of ovary 888138170 Z85.43 Hx of. Had DYLLAN/BSO Per family the pt had one day of treatment for this and then never followed up with this- she refused care. Chronic ob structive pulmonary disease 22611764 J43.8 Likely with underlying COPD. Continue meds as above. Will need full PFTs when able. [id number] KEILA BRASHER [address] [place] [address] 03/18/2020 09:19:47 03/22/2020 10:40:26 Chronic obstructive pulmonary disease 32290789 J44.9 monitor for any sob, O2 if needed Mixed anxi ety and depressive disorder 463801816 F41.8 Continue mirtazapin e 15 mg qd. monitor mood Follow with NEG as able. Severe protein-calorie malnutrition (Bell: less than 60 percent of standard weight) 617003841 E43 Continue ensure TID and mirtazapin e 15 mg qd Continue to monitor weights Tuberculosis 09183277 A1 8.89 continue ethambutol 800 mg qd, isoniazid 300 mg qd and pyrazinami de 1000 mg qd Nebs all transition ed to inhalers, now on combivent QID, symbicort 80/4.5 two puffs BID and proair with spacer q 4h prn. Continue O2 prn to maintain sats >90% Monitor respirator y function F/U with resp therapist and pulmonary as able. [id number] KEILA BRASHER [address] [place] [address] 04/11/2020 10:32:37 04/19/2020 15:35:04 Mixed anxiety and depressive disorder 939210398 F41.8 Continue mirtazapin e 15 mg qd. monitor mood Follow with NEG as able. [id number] MD KAREN Morales [address] [place] [address] 05/20/2020 06:57:19 05/24/2020 10:36:19 Chronic obstructive pulmonary disease 41025628 J44.9 Symbicort 4.5-80: 2 puffs bidCombive nt respimat 20-100: one puff tidalbuter ol HFA 1 puff q4h prn will monitor History of malignant neoplasm of ovary 196908988 Z85.43 s/p DYLLAN, SBO; has refused further treatment Mixed anxi ety and depressive disorder 064381896 F41.8 mirtazapin e 15 mg at [facility] monitor Tuberculosis 82991998 A1 8.89 fu [facility] clinic Hypothyroidism 02499458 E03.8 levothyrox ine 75 mcg dailywill monitor [id number] KEILA BRASHER [address] [place] [address] 07/13/2020 10:24:49 07/15/2020 14:24:57 Chronic obstructive pulmonary disease 31604328 J44.9 monitor for any sob, O2 if needed symbicort 80/4.5 q12 hr combivent 20/100 tid flonase daily Healthcare associated bacterial pneumonia 149140680 J15.9 recovered Hypothyroidism 90397493 E03.9 levothyrox ine 75 mcg daily will monitor Mixed anxi ety and depressive disorder 747278850 F41.8 mirtazapin e 15 mg qd. monitor mood Follow with NEG as able. Tuberculosis 03571449 A1 8.89 combivent tid, symbicort 80/4.5 two puffs BID proair with spacer q 4h prn. Continue O2 prn to maintain sats >90% Monitor respirator y function F/U with resp therapist and pulmonary as able. Severe protein-calorie malnutrition (Bell: less than 60 percent of standard weight) 828098037 E43 ensure TID and mirtazapin e 15 mg qd thiamine 100 mg daily B6 100 daily Continue to monitor weights [id number] KEILA BRASHER [address] [place] [address] 08/23/2020 11:08:00 08/25/2020 13:34:50 Chronic obstructive pulmonary disease 45872524 J44.9 monitor for any sob, O2 if needed symbicort 80/4.5 q12 hr combivent 20/100 tid flonase daily SARS-CoV-2 068553100 U07 .1 encourage po intake O2 prn consider IVF if she becomes anorexic [id number] SON LEIJA NP [address] [address] 08/29/2020 12:18:09 08/31/2020 15:39:28 Chronic obstructive pulmonary disease 26232615 J44.9 monitor for any sob, O2 if needed symbicort 80/4.5 q12 hr combivent 20/100 tid flonase daily loratadine 10mg daily Healthcare associated bacterial pneumonia 676404293 J15.9 recovered History of malignant neoplasm of ovary 171364343 Z85.43 DYLLAN SBO no further treatment Hypothyroidism 36834281 E03.9 levothyrox ine 75 mcg daily will monitor Mediastinal emphysema 16 101476 J98.2 2019 pneumomedi astinum related to infection/ bronchosco py no interventi on needed if resp sx develop will repeat cxr/CT chest Mixed anxi ety and depressive disorder 950587097 F41.8 mirtazapin e 15 mg qd. monitor mood Follow with NEG as able. SARS-CoV-2 245337952 U07 .1 encourage po intake O2 prn consider IVF if she becomes anorexic Severe protein-calorie malnutrition (Bell: less than 60 percent of standard weight) 904802118 E43 ensure TID and mirtazapin e 15 mg qd thiamine 100 mg daily B6 100 daily Continue to monitor weights Tuberculosis 73872577 A1 8.89 combivent tid, symbicort 80/4.5 two puffs BID proair with spacer q 4h prn. Continue O2 prn to maintain sats >90% Monitor respirator y function F/U with resp therapist and pulmonary as able. [id number] KEILA BRASHER WERO [address] [place] [address] 08/30/2020 08:12:16 09/02/2020 10:34:19 SARS-CoV-2 440262978 U07.1 encourage po intake O2 prn consider IVF if she becomes anorexic [id number] SON LEIJA NP [address] [address] 08/31/2020 11:03:06 09/02/2020 11:07:24 SARS-CoV-2 219472402 U07.1 08/16, 08/23 positive encourage po intake O2 prn consider IVF if she becomes anorexic [id number] SON LEIJA NP [address] [address] 09/01/2020 09:30:51 09/06/2020 10:25:57 SARS-CoV-2 878853752 U07.1 08/16, 08/23 positive encourage po intake O2 prn consider IVF if she becomes anorexic [id number] SON LEIJA NP [address] [address] 09/02/2020 12:59:16 09/06/2020 10:40:27 SARS-CoV-2 737900064 U07.1 08/16, 08/23 positive, 08/29 negative encourage po intake O2 prn consider IVF if she becomes anorexic [id number] Toma Alvarado MD [address] [address] 09/23/2020 06:10:55 09/27/2020 11:42:12 Chronic obstructive pulmonary disease 47761982 J41.0 Advair 250-50: one puff bidCombive nt Respimat 20-100: one puff tidalbuter ol HFA 1 puff q4h prn will monitor History of malignant neoplasm of ovary 839345304 Z85.43 s/p DYLLAN, SBO; has refused further treatment Hypothyroidism 34056696 E03.8 levothyrox ine 75 mcg dailywill monitor Mixed anxi ety and depressive disorder 454245558 F41.8 mirtazapin e 15 mg at [facility] monitor SARS-CoV-2 464667476 U07 .1 recoveredw ill continue to monitor [id number] SON LEIJA NP [address] [address] 11/15/2020 13:47:46 11/16/2020 14:55:19 Chronic obstructive pulmonary disease 41657490 J44.9 monitor for any sob, O2 if needed advair 250/50 daily combivent 20/100 tid flonase daily albuterol prn loratadine 10mg daily Healthcare associated bacterial pneumonia 855120439 J15.9 recovered History of malignant neoplasm of ovary 179081597 Z85.43 DYLLAN SBO no further treatment Hypothyroidism 63975237 E03.9 levothyrox ine 75 mcg daily will monitor Mediastinal emphysema 16 222151 J98.2 2019 pneumomedi astinum related to infection/ bronchosco py no interventi on needed if resp sx develop will repeat cxr/CT chest Mixed anxi ety and depressive disorder 662951520 F41.8 mirtazapin e 15 mg qd. monitor mood Follow with NEG as able. SARS-CoV-2 904096075 U07 .1 recovered 08/16, 08/23 positive, 08/29 negative encourage po intake O2 prn consider IVF if she becomes anorexic Severe protein-calorie malnutrition (Bell: less than 60 percent of standard weight) 751901684 E43 ensure TID and mirtazapin e 15 mg qd thiamine 100 mg daily B6 100 daily Continue to monitor weights Tuberculosis 93411302 A1 8.89 combivent tid, advair daily proair with spacer q 4h prn. Continue O2 prn to maintain sats >90% Monitor respirator y function F/U with resp therapist and pulmonary as able. Pain in right knee 68966 94990 13353 M25.561 lidoderm patch right kneediclof enac gel bidtylenol 650 mg q6hr prn [id number] Toma Alvarado MD [address] [address] 01/06/2021 07:13:09 01/10/2021 10:35:09 Chronic obstructive pulmonary disease 27327916 J41.0 Advair 250-50: one puff bidCombive nt Respimat 20-100: one puff tidalbuter ol HFA 1 puff q4h prn will monitor History of malignant neoplasm of ovary 361765434 Z85.43 s/p DYLLAN, SBO; has refused further treatment Hypothyroidism 52826784 E03.8 levothyrox ine 75 mcg dailywill monitor Mixed anxi ety and depressive disorder 580960948 F41.8 mirtazapin e 15 mg at hswill monitor SARS-CoV-2 821214475 U07 .1 diagnosed 09/02 recovered will continue to monitor [id number] SON LEIJA NP [facility] [address] [place] [address] 03/01/2021 08:04:33 03/03/2021 13:38:48 Chronic obstructive pulmonary disease 47888743 J44.9 monitor for any sob, O2 if needed advair 250/50 bid combivent 20/100 tid flonase daily albuterol prn loratadine 10mg daily History of malignant neoplasm of ovary 458860266 Z85.43 DYLLAN SBO no further treatment Hypothyroidism 70043799 E03.9 levothyrox ine 75 mcg daily will monitor Mediastinal emphysema 16 460195 J98.2 2019 pneumomedi astinum related to infection/ bronchosco py no interventi on needed if resp sx develop will repeat cxr/CT chest 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 monitor mood Follow with NEG as able. Pain in right knee 77424 28269 66177 M25.561 lidoderm patch right kneediclof enac gel bidtylenol 650 mg q6hr prn Severe protein-calorie malnutrition (Bell: less than 60 percent of standard weight) 306969390 E43 ensure TID mirtazapin e 15 mg qd thiamine 100 mg daily B6 100 daily Continue to monitor weights Tuberculosis 77179500 A1 8.89 combivent tid, advair 250/50 bid proair with spacer q 4h prn. Continue O2 prn to maintain sats >90% Monitor respirator y function F/U with resp therapist and pulmonary as able. [id number] MD KAREN Morales [address] [place] [address] [place] [address] 04/21/2021 06:57:11 05/02/2021 14:03:31 Chronic obstructive pulmonary disease 89872874 J41.0 Advair 250-50: one puff bidCombive nt Respimat 20-100: one puff tidalbuter ol HFA 1 puff q4h prnwill monitor History of malignant neoplasm of ovary 219606907 Z85.43 s/p DYLLAN, SBOhas refused further treatment Hypothyroidism 60447954 E03.8 levothyrox ine 75 mcg dailywill monitor Mixed anxi ety and depressive disorder 832405588 F41.8 mirtazapin e 15 mg at hswill monitor SARS-CoV-2 845581296 U07 .1 diagnosed 09/02 recovered will continue to monitor Gastroesop hageal reflux disease without esophagitis 529654617 K21.9 famotidine 20 mg at hswill monitor Acute conjunctivitis 537 25710 H10.011 improvingc omplete course of polytrim solutionwi ll monitor [id number] SON LEIJA NP [address] [address] 06/14/2021 11:54:10 06/16/2021 10:06:14 Chronic obstructive pulmonary disease 83899613 J41.0 monitor for any sob, O2 if needed advair 250/50 bid combivent 20/100 tid flonase daily albuterol prn loratadine 10mg daily Hypothyroidism 89886334 E03.8 levothyrox ine 75 mcg daily will monitor Mixed anxi ety and depressive disorder 442190393 F41.8 mirtazapin e 15 mg qd. monitor mood Follow with NEG as able. Pain in right knee 24969 88192 77029 M25.561 lidoderm patch right kneediclof enac gel bidtylenol 650 mg q6hr prn Tuberculosis 56006809 A1 8.89 combivent tid, advair 250/50 bid proair with spacer q 4h prn. O2 prn to maintain sats >90% Monitor respirator y function F/U with resp therapist and pulmonary as able. Gastroesop hageal reflux disease without esophagitis 246611232 K21.9 pepcid 20 mg daily Vitamin deficiency 67320 002 E56.9 mvi dailythiam ine 100 mg dailyB6 daily [id number] Toma Alvarado MD [address] [address] 08/23/2021 06:02:03 08/25/2021 11:44:21 Chronic obstructive pulmonary disease 68615764 J41.0 Advair 250-50: one puff bidCombive nt Respimat 20-100: one puff tidalbuter ol HFA 1 puff q4h prnwill monitor Gastroesop hageal reflux disease without esophagitis 626029753 K21.9 famotidine 20 mg at hswill monitor Hypothyroidism 46985432 E03.8 levothyrox ine 75 mcg dailywill monitor History of malignant neoplasm of ovary 181810606 Z85.43 s/p DYLLAN, SBOhas refused further treatment Mixed anxi ety and depressive disorder 011334347 F41.8 mirtazapin e 15 mg at hswill monitor Vitamin deficiency 36692 002 E56.8 pyridoxine 100 mg dailythiam ine 100 mg dailyMVI dailywill monitor Osteoarthritis 276421383 M17.11 APAP 650 mg q6h prndiclofe nac topical gel to right knee prnBengay cream to right knee q8h prnlidocai ne patch 4% to right knee dailywill monitor [id number] KEILA BRASHER [address] [place] [address] 5 10/19/2021 12:58:57 10/24/2021 11:46:50 Chronic obstructive pulmonary disease 32704852 J41.0 monitor for any sob, O2 if needed advair 250/50 bid combivent 20/100 tid flonase daily albuterol prn loratadine 10mg daily Hypothyroidism 16527913 E03.8 levothyrox ine 75 mcg daily will monitor Mixed anxi ety and depressive disorder 338049275 F41.8 mirtazapin e 15 mg qd. monitor mood Follow with NEG as able. Pain in right knee 10728 82955 68187 M25.561 lidoderm patch right kneediclof enac gel bidtylenol 650 mg q6hr prn Tuberculosis 15215634 A1 8.89 combivent tid, advair 250/50 bid proair with spacer q 4h prn. O2 prn to maintain sats >90% Monitor respirator y function F/U with resp therapist and pulmonary as able. Gastroesop hageal reflux disease without esophagitis 587753425 K21.9 pepcid 20 mg daily Vitamin deficiency 21026 002 E56.9 mvi dailythiam ine 100 mg dailyB6 daily [id number] KEILA BRASHER WERO [address] [place] [address] 11/09/2021 09:05:30 11/15/2021 08:55:12 Chronic obstructive pulmonary disease 62893318 J41.0 monitor for any sob, O2 if needed advair 250/50 bid combivent 20/100 tid flonase daily albuterol prn loratadine 10mg daily Pain in right knee 18979 44744 79371 M25.561 lidoderm patch right kneediclof enac gel bidtylenol 650 mg q6hr prn [id number] SON LEIJA NP [address] [address] 11/10/2021 10:03:11 11/15/2021 10:48:07 SARS-CoV-2 595658114 U07.1 11/08 covid positive, asymptomat icPatient covid positiveco ntinue supportive caremonito r PO intake and need for supplement al [id number] need for adjuvent therapyto ED for acute decompensa tion [id number] SON LEIJA NP [address] [address] 11/13/2021 12:31:35 11/15/2021 11:47:51 SARS-CoV-2 430525161 U07.1 11/08 covid positive, asymptomat ic-recover ed by Rhonda blakely covid positive continue supportive care monitor PO intake and need for supplement al O2 monitor need for adjuvent therapy to ED for acute decompensa tion [id number] Toma Alvarado MD [address] [address] 12/22/2021 07:56:46 12/27/2021 16:02:07 Chronic obstructive pulmonary disease 28733057 J41.0 Advair 250-50: one puff bidCombive nt Respimat 20-100: one puff tidalbuter ol HFA 1 puff q4h prnwill monitor Gastroesop hageal reflux disease without esophagitis 812648892 K21.9 famotidine 20 mg at hswill monitor Hypothyroidism 45805774 E03.8 levothyrox ine 75 mcg dailywill monitor Mixed anxi ety and depressive disorder 724501882 F41.8 mirtazapin e 15 mg at hswill monitor SARS-CoV-2 757758193 U07 .1 tested positive 11/08/21asy mptomatic coursereco shelli will continue to monitor [id number] SON LEIJA NP [address] [address] 01/19/2022 08:44:18 01/23/2022 11:01:49 Chronic obstructive pulmonary disease 91002542 J41.0 monitor for any sob, O2 if needed advair 250/50 bid combivent 20/100 tid flonase daily albuterol prn loratadine 10mg daily Hypothyroidism 67316506 E03.8 levothyrox ine 75 mcg daily will monitor Mixed anxi ety and depressive disorder 812298817 F41.8 mirtazapin e 15 mg qd. monitor mood Follow with NEG as able. Pain in right knee 33269 56119 10702 M25.561 lidoderm patch right kneediclof enac gel bidtylenol 650 mg q6hr prn Tuberculosis 87210616 A1 8.89 combivent tid, advair 250/50 bid proair with spacer q 4h prn. O2 prn to maintain sats >90% Monitor respirator y function F/U with resp therapist and pulmonary as able. Gastroesop hageal reflux disease without esophagitis 104620145 K21.9 pepcid 20 mg daily Vitamin deficiency 27918 002 E56.9 mvi dailythiam ine 100 mg dailyB6 daily [id number] SON LEIJA NP [address] [address] 02/16/2022 11:50:24 02/20/2022 12:03:24 Chronic obstructive pulmonary disease 45667458 J41.0 monitor for any sob, O2 if needed advair 250/50 bid combivent 20/100 tid flonase daily albuterol prn loratadine 10mg daily Hypothyroidism 78097303 E03.8 levothyrox ine 75 mcg daily will monitor Mixed anxi ety and depressive disorder 208002754 F41.8 mirtazapin e 15 mg qd. monitor mood Follow with NEG as able. Pain in right knee 96430 45929 46618 M25.561 lidoderm patch right kneediclof enac gel bidtylenol 650 mg q6hr prn Tuberculosis 48717162 A1 8.89 combivent tid, advair 250/50 bid proair with spacer q 4h prn. O2 prn to maintain sats >90% Monitor respirator y function F/U with resp therapist and pulmonary as able. Gastroesop hageal reflux disease without esophagitis 562740518 K21.9 pepcid 20 mg daily Vitamin deficiency 85808 002 E56.9 mvi dailythiam ine 100 mg dailyB6 daily [id number] CHASE Eduardo [address] [address] 03/08/2022 11:23:24 03/13/2022 16:32:13 Cellulitis of finger of right hand 5677336307 2233059 L03.011 bacitracin cream apply qd till healedmoni tor. [id number] Toma Alvarado MD [address] [address] 03/30/2022 08:39:42 04/03/2022 11:43:48 Chronic obstructive pulmonary disease 54282537 J41.0 Advair 250-50: one puff bidCombive nt Respimat 20-100: one puff tidalbuter ol HFA 1 puff q4h prnwill monitor Gastroesop hageal reflux disease without esophagitis 948821922 K21.9 famotidine 20 mg at hswill monitor Hypothyroidism 05808660 E03.8 levothyrox ine 75 mcg dailywill monitor Mixed anxi ety and depressive disorder 467081190 F41.8 mirtazapin e 15 mg at hswill monitor Vitamin deficiency 45616 002 E56.9 pyridoxine 100 mg dailythiam ine 100 mg dailyMVI dailywill monitor Osteoarthritis 464834498 M17.11 APAP 650 mg q6h prndiclofe nac topical gel to right knee bid prnBengay cream to right knee q8h prnlidocai ne patch 4% to right knee dailywill monitor [id number] SON LEIJA NP [address] [address] 05/23/2022 13:08:08 05/29/2022 16:22:19 Chronic obstructive pulmonary disease 56419412 J41.0 Advair 250-50: one puff bidCombive nt Respimat 20-100: one puff tidalbuter ol HFA 1 puff q4h prnwill monitor Gastroesop hageal reflux disease without esophagitis 773733833 K21.9 famotidine 20 mg at hswill monitor Hypothyroidism 63709908 E03.8 levothyrox ine 75 mcg dailywill monitor Mixed anxi ety and depressive disorder 684065855 F41.8 mirtazapin e 15 mg at hswill monitor Vitamin deficiency 48225 002 E56.9 pyridoxine 100 mg dailythiam ine 100 mg dailyMVI dailywill monitor Osteoarthritis 064146379 M17.11 APAP 650 mg q6h prndiclofe nac topical gel to right knee bid prnBengay cream to right knee q8h prnlidocai ne patch 4% to right knee dailywill monitor Tuberculosis 13428938 A1 8.89 combivent tid, advair 250/50 bid proair with spacer q 4h prn. O2 prn to maintain sats >90% Monitor respirator y function F/U with resp therapist and pulmonary as able. [id number] MD KAREN Morales W[facility] [address] [place] [address] 5 07/13/2022 07:10:41 07/17/2022 14:08:46 Chronic obstructive pulmonary disease 67071750 J41.0 Advair 250-50: one puff bidCombive nt Respimat 20-100: one puff tidalbuter ol HFA 1 puff q4h prnwill monitor Hypothyroidism 72189553 E03.8 levothyrox ine 75 mcg dailywill monitor Mixed anxi ety and depressive disorder 076549265 F41.8 mirtazapin e 15 mg at hswill monitor Gastroesop hageal reflux disease without esophagitis 435882937 K21.9 famotidine 20 mg at hswill monitor History of malignant neoplasm of ovary 132767530 Z85.43 s/p DYLLAN, SBOhas refused further treatment [id number] SON LEIJA NP [address] [address] 09/05/2022 17:06:29 09/11/2022 14:11:08 Chronic obstructive pulmonary disease 17430061 J41.0 Advair 250-50: one puff bidCombive nt Respimat 20-100: one puff tidalbuter ol HFA 1 puff q4h prnwill monitor Hypothyroidism 73710569 E03.8 levothyrox ine 75 mcg dailywill monitor Mixed anxi ety and depressive disorder 749046228 F41.8 mirtazapin e 15 mg at hswill monitor Gastroesop hageal reflux disease without esophagitis 333079180 K21.9 famotidine 20 mg at hswill monitor Tuberculosis 04933602 A1 8.89 combivent tid, advair 250/50 bid proair with spacer q 4h prn. O2 prn to maintain sats >90% Monitor respirator y function F/U with resp therapist and pulmonary as able. Toma Alvarado MD [address] [address] 12/07/2022 10:38:11 12/11/2022 08:03:41 Chronic obstructive pulmonary disease 96133739 J41.0 Advair 250-50: one puff bidCombive nt Respimat 20-100: one puff tidalbuter ol HFA 1 puff q4h prnwill monitor Mixed anxi ety and depressive disorder 218434232 F41.8 mirtazapin e 15 mg at hswill monitor Gastroesop hageal reflux disease without esophagitis 629243444 K21.9 famotidine 20 mg at hswill monitor Hypothyroidism 30804948 E03.8 levothyrox ine 75 mcg dailywill monitor Chronic pain 11226877 G8 9.29 diclofenac gel to right knee bid prnlidocai ne patch to right knee dailyAPAP 650 mg q6h prnwill monitor [id number] SON LEIJA NP [address] [address] 5 01/28/2023 14:21:07 01/31/2023 15:22:09 Chronic obstructive pulmonary disease 76231955 J41.0 Advair 250-50: one puff bidCombive nt Respimat 20-100: one puff tidalbuter ol HFA 1 puff q4h prnwill monitor Mixed anxi ety and depressive disorder 642560387 F41.8 mirtazapin e 15 mg at hswill monitor Gastroesop hageal reflux disease without esophagitis 887020428 K21.9 famotidine 20 mg at hswill monitor Hypothyroidism 26819577 E03.8 levothyrox ine 75 mcg dailywill monitor Chronic pain 43510847 G8 9.29 diclofenac gel to right knee bid prnlidocai ne patch to right knee dailyAPAP 650 mg q6h prnwill monitor [id number] SON LEIJA NP [facility] [address] [place] [address] 02/15/2023 13:27:41 02/20/2023 16:52:34 Chronic obstructive pulmonary disease 02099489 J41.0 Advair 250-50: one puff bidCombive nt Respimat 20-100: one puff tidalbuter ol HFA 1 puff q4h prnwill monitor Mixed anxi ety and depressive disorder 168379590 F41.8 mirtazapin e 15 mg at hswill monitor Gastroesop hageal reflux disease without esophagitis 945426975 K21.9 famotidine 20 mg at hswill monitor Hypothyroidism 52592284 E03.8 levothyrox ine 75 mcg dailywill monitor Chronic pain 13877093 G8 9.29 diclofenac gel to right knee bid prnlidocai ne patch to right knee dailyAPAP 650 mg q6h prnwill monitor Vitamin deficiency 48084 002 E56.9 pyridoxine 100 mg dailythiam ine 100 mg dailyMVI dailywill monitor [id number] MD KAREN Pope W[facility] [address] [place] [phone] 5 03/28/2023 13:20:05 04/11/2023 13:24:13 Chronic obstructive pulmonary disease 48510056 J41.0 No current sxs.Contin ue Advair 250/50 BID, Combivent Respimat 1 puff TID and albuterol HFA 1 puff q 4 hrs prnMonitor resp. status. Mixed anxi ety and depressive disorder 541167258 F41.8 Mood good today.Cont inue mirtazapin e 15 mg at hsMonitor moodPsych follows, no GDR recommende d. Gastroesop hageal reflux disease without esophagitis 105346635 K21.9 Under good controlCon tinue famotidine 20 mg at hsMonitor for sxs Hypothyroidism 03813736 E03.8 Last TSH 02/2021 was WNLContinu e levothyrox ine 75 mcg dailyMonit or TSH yearly, will order with next labs. Chronic pain 95441072 G8 9.29 She says pain is adequately controlled .Continue diclofenac gel to right knee BID prn, lidocaine patch to right knee daily and APAP 650 mg q 6 hrs prnMonitor sxs. Vitamin deficiency 99852 002 E56.8 Continue pyridoxine 100 mg daily, thiamine 100 mg daily, and MVI dailyNo monitoring needed. [id number] SON LEIJA NP [address] [address] 04/05/2023 13:30:53 04/11/2023 13:56:07 Chronic obstructive pulmonary disease 23998635 J41.0 Advair 250-50: one puff bidCombive nt Respimat 20-100: one puff tidalbuter ol HFA 1 puff q4h prnwill monitor Mixed anxi ety and depressive disorder 825401394 F41.8 mirtazapin e 15 mg at hswill monitor [id number] SON LEIJA NP [address] [address] 05/17/2023 10:17:44 05/21/2023 16:07:38 Chronic obstructive pulmonary disease 28396165 J41.0 Advair 250-50: one puff bidCombive nt Respimat 20-100: one puff tidalbuter ol HFA 1 puff q4h prnwill monitor Mixed anxi ety and depressive disorder 043147834 F41.8 mirtazapin e 15 mg at hswill monitor Gastroesop hageal reflux disease without esophagitis 432446588 K21.9 famotidine 20 mg at hswill monitor Hypothyroidism 64218373 E03.8 levothyrox ine 75 mcg dailywill monitor Chronic pain 04340718 G8 9.29 diclofenac gel to right knee bid prnlidocai ne patch to right knee dailyAPAP 650 mg q6h prnwill monitor Vitamin deficiency 93648 002 E56.9 pyridoxine 100 mg dailythiam ine 100 mg dailyMVI dailywill monitor [id number] SON LEIJA NP KAREN CONTEH [address] [place] [address] [place] [address] 5 07/08/2023 13:04:17 07/09/2023 20:04:53 Pain of left knee region 4349764406 41290 M25.562 tylenol prnxray of left kneePT OT eval and treat prn [id number] MD KAREN Pope WERO [address] [place] [address] [place] [address] 08/16/2023 13:59:50 08/20/2023 11:12:11 Pain of left knee region 0979608825 75315 M25.562 Says it's much better.Con tinue diclofenac gel 4 gms BID and APAP 650 mg q 6 hrs prn.Monito r sxs. Chronic ob structive pulmonary disease 93477110 J41.0 Continues at mild baseline.C ontinue Advair 250/50 BID, Combivent Respimat 1 puff TID and albuterol HFA 1 puff q 4 hrs prnMonitor resp. status. Mixed anxi ety and depressive disorder 304999627 F41.8 Mood remains good at most times.Cont inue mirtazapin e 15 mg qhsMonitor moodPsych continues to follow intermitte ntly, no GDR recommende d. Gastroesop hageal reflux disease without esophagitis 243893317 K21.9 No current sxs.Contin ue famotidine 20 mg qhsMonitor for sxs Hypothyroidism 05075602 E03.8 Last TSH was in ont inue levothyrox ine 75 mcg dailyMonit or TSH yearly, will order with next labs. Chronic pain 87459639 G8 9.29 As above.Also gets lidocaine patch to right knee daily.Elsy tor [id number] KEILA BRASHER WERO [address] [place] [address] [place] [address] 10/09/2023 13:25:53 10/22/2023 10:00:48 Chronic obstructive pulmonary disease 89376736 J41.0 Advair 250-50: one puff bidCombive nt Respimat 20-100: one puff tidalbuter ol HFA 1 puff q4h prnwill monitor Mixed anxi ety and depressive disorder 632152734 F41.8 mirtazapin e 15 mg at hswill monitor Gastroesop hageal reflux disease without esophagitis 963639286 K21.9 famotidine 20 mg at hswill monitor Hypothyroidism 06714902 E03.8 levothyrox ine 75 mcg dailywill monitor Chronic pain 26499388 G8 9.29 diclofenac gel to right knee bid prnlidocai ne patch to right knee dailyAPAP 650 mg q6h prnwill monitor Vitamin deficiency 13939 002 E56.9 pyridoxine 100 mg dailythiam ine 100 mg dailyMVI dailywill monitor [id number] CHASE CHE [address] [address] 10/23/2023 11:46:55 10/30/2023 12:50:00 Contact dermatitis 85871153 L25.9 see hpihydroco rtisone 1% bid for 5 days and re evalPatien t encouraged to avoid scratching or touching affected areanursin g to offer prn tylenol for discomfort . [id number] Kianna Alvarez MD [address] [address] 12/10/2023 16:27:11 01/13/2024 15:10:49 Pain of left knee region 8857787623 81242 M25.562 Continues to do well with diclofenac gel 4 gms BID and APAP 650 mg q 6 hrs prn.Monito r sxs. Chronic ob structive pulmonary disease 16148768 J43.8 No recent exacerbati ons.Contin ue Advair 250/50 BID, Combivent Respimat 1 puff TID and albuterol HFA 1 puff q 4 hrs prnMonitor resp. status. Mixed anxi ety and depressive disorder 241297460 F41.8 Mood is stable, enjoys activities .Continue mirtazapin e 15 mg qhsMonitor moodPsych follows, last seen on 12/15 with no rec for med changes. Gastroesop hageal reflux disease without esophagitis 431182203 K21.9 No current sxs.Contin ue famotidine 20 mg qhsMonitor for sxs Hypothyroidism 36320315 E03.8 Last TSH in 08/2023 was sl. low at 0.17, no FT4 checked and no recheck done.Mandi nue levothyrox ine 75 mcg qd for nowRecheck TSH with FT4. Chronic pain 71559577 G8 9.29 As above.Also gets lidocaine patch to right knee daily.Elsy resendez [id number] CHASE CHE [address] [address] 01/30/2024 11:16:15 02/04/2024 12:17:43 Chronic obstructive pulmonary disease 28082054 J43.8 stableCont inue Advair 250/50 BID,contin ue Combivent Respimat 1 puff TIDcontinu e albuterol HFA 1 puff q 4 hrs prnMonitor resp. status. Mixed anxi ety and depressive disorder 868169890 F41.8 Continue mirtazapin e 15 mg qhsMonitor mood Gastroesop hageal reflux disease without esophagitis 049698865 K21.9 Continue famotidine 20 mg qhsMonitor for sxs Hypothyroidism 06843271 E03.8 Continue levothyrox ine 75 mcg qdmonitor labs prn Chronic pain 47334610 G8 9.29 As above.Also gets lidocaine patch to right knee daily.Elsy resendez [id number] CHASE CHE [address] [address] 03/12/2024 09:49:24 03/25/2024 14:50:38 Chronic obstructive pulmonary disease 90150346 J43.8 stableCont inue Advair 250/50 BID,contin ue Combivent Respimat 1 puff TIDcontinu e albuterol HFA 1 puff q 4 hrs prnMonitor resp. status. Mixed anxi ety and depressive disorder 265527066 F41.8 Continue mirtazapin e 15 mg qhsMonitor mood Gastroesop hageal reflux disease without esophagitis 848676143 K21.9 Continue famotidine 20 mg qhsMonitor for sxs Hypothyroidism 27221942 E03.8 Continue levothyrox ine 75 mcg qdmonitor labs prn Chronic pain 45398585 G8 9.29 As above.Also gets lidocaine patch to right knee daily.Elsy tor Vitamin deficiency 92328 002 E56.9 continue pyridoxine 100 mg daily ,thiamine 100 mg daily ,MVI daily Pain of knee region 1003 985036 M25.569 lidoderm patch right kneediclof enac gel bidtylenol 650 mg q6hr prn [id number] MD KAREN Pope [address] [place] [address] [place] [address] 04/17/2024 21:47:21 05/05/2024 07:56:21 Chronic obstructive pulmonary disease 20533599 J43.8 No recent exacerbati ons.Contin ue Advair 250/50 BID, Combivent Respimat 1 puff TID and albuterol HFA 1 puff q 4 hrs prnMonitor resp. status. Mixed anxi ety and depressive disorder 103778571 F41.8 Mood good tonight.Co ntinue mirtazapin e 15 mg qhsMonitor moodPsych follows, last seen on 03/23/24 with no rec for med changes. Gastroesop hageal reflux disease without esophagitis 544608668 K21.9 No current sxs.Contin ue famotidine 20 mg qhsMonitor for GI sxs Pain of le ft knee region 3132153935 58214 M25.562 Continues to do well with diclofenac gel 4 gms BID and APAP 650 mg q 6 hrs prn.Also uses lidocaine patch on right knee.Monit or sxs. Hypothyroidism 41185033 E03.8 Last TSH remains sl. low at 0.12, but with normal FT4.Contin ue levothyrox ine 75 mcg qd for nowRecheck TSH with FT4 in 3 months. Chronic pain 15308739 G8 9.29 As above.Elsy tor sxs [id number] [facility] [address] [place] [address] [place] [address] 05/14/2024 13:40:54 05/19/2024 13:06:16 Psoriasis 9912221 L40.9 Pruritic half dollar size, scaly red patch noted at base of hairline/ nap of neckwill add triamcinol one cream BID for 14 daysmonito r for resolution . [id number] [facility] [address] [place] [address] 05/19/2024 10:01:52 05/20/2024 14:50:20 Psoriasis 6368992 L40.9 Pruritic half dollar size, scaly red patch noted at base of hairline/ nap of neck- improvingc ontinue triamcinol one cream BID for 14 daysmonito r for resolution . [id number] CHASE [facility] [address] [place] [address] 06/03/2024 13:59:00 06/05/2024 10:24:55 Chronic obstructive pulmonary disease 64998443 J43.8 stableCont inue Advair 250/50 BID,contin ue Combivent Respimat 1 puff TIDcontinu e albuterol HFA 1 puff q 4 hrs prnMonitor resp. status. Mixed anxi ety and depressive disorder 726064790 F41.8 mood has been stableCont inue mirtazapin e 15 mg qhspsych prn Gastroesop hageal reflux disease without esophagitis 183501777 K21.9 Continue famotidine 20 mg qhsMonitor for sxs Hypothyroidism 40134491 E03.8 Continue levothyrox ine 75 mcg qdmonitor labs prn Chronic pain 59785865 G8 9.29 As above.Also gets lidocaine patch to right knee daily.Elsy tor Vitamin deficiency 19029 002 E56.9 continue pyridoxine 100 mg daily ,thiamine 100 mg daily ,MVI daily Pain of knee region 1003 663532 M25.569 lidoderm patch right kneediclof enac gel bidtylenol 650 mg q6hr prn Psoriasis 8710278 L40.9 resolved [id number] [facility] [address] [place] [address] 07/23/2024 10:20:41 07/28/2024 15:44:44 Chronic obstructive pulmonary disease 07185617 J43.8 stableCont inue Advair 250/50 BID,contin ue Combivent Respimat 1 puff TIDcontinu e albuterol HFA 1 puff q 4 hrs prnMonitor resp. status. Mixed anxi ety and depressive disorder 034143645 F41.8 mood has been stableCont inue mirtazapin e 15 mg qhspsych prn Gastroesop hageal reflux disease without esophagitis 159045003 K21.9 Continue famotidine 20 mg qhsMonitor for sxs Hypothyroidism 50770473 E03.8 Continue levothyrox ine 75 mcg qdmonitor labs prn Chronic pain 54728229 G8 9.29 As above.Also gets lidocaine patch to right knee daily.Elsy tor Vitamin deficiency 79670 002 E56.9 continue pyridoxine 100 mg daily ,thiamine 100 mg daily ,MVI daily Pain of knee region 1003 142580 M25.569 stable.lid oderm patch right kneediclof enac gel bidtylenol 650 mg q6hr prn Psoriasis 0338498 L40.9 resolved [id number] [facility] [address] [address] 09/14/2024 12:31:36 09/22/2024 14:14:59 Chronic obstructive pulmonary disease 18640726 J43.8 stableCont inue Advair 250/50 BID,contin ue Combivent Respimat 1 puff TIDcontinu e albuterol HFA 1 puff q 4 hrs prnMonitor resp. status. Mixed anxi ety and depressive disorder 598082104 F41.8 mood has been stableCont inue mirtazapin e 15 mg qhspsych prn Gastroesop hageal reflux disease without esophagitis 790910323 K21.9 Continue famotidine 20 mg qhsMonitor for sxs Hypothyroidism 23880005 E03.8 Continue levothyrox ine 75 mcg qdmonitor labs prn Chronic pain 33015169 G8 9.29 As above.Also gets lidocaine patch to right knee daily.Elsy tor Vitamin deficiency 24199 002 E56.9 continue pyridoxine 100 mg daily ,thiamine 100 mg daily ,MVI daily Pain of knee region 1003 667891 M25.569 stable.lid oderm patch right kneediclof enac gel bidtylenol 650 mg q6hr prn [id number] [facility] [address] [address] 10/12/2024 10:37:58 10/13/2024 13:55:23 COVID-19 [id number] U07.1 we discussed antiviral, she is not interested ,s she reports that she is feeling better todaywill add prn robitussin and oxygen as wellcontin ue supportive therapy( tylenol, oxygen, robitussin ordered.)i ncrease fluids encouraged discussed with nursing, update provider with changes. [id number] [facility] [address] [place] [address] [place] [address] 01/10/2025 10:55:53 01/14/2025 16:09:23 Chronic obstructive pulmonary disease 14227338 J43.8 stableCont inue Advair 250/50 BID,contin ue Combivent Respimat 1 puff TIDcontinu e albuterol HFA 1 puff q 4 hrs prnMonitor resp. status. 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 F41.8 stableCont inue mirtazapin e 15 mg qhspsych prn Gastroesop hageal reflux disease without esophagitis 882141183 K21.9 stable/Con tinue famotidine 20 mg qhsMonitor for sxs Hypothyroidism 46537099 E03.8 Continue levothyrox ine 75 mcg qdmonitor labs prn Chronic pain 35035411 G8 9.29 stableAlso gets lidocaine patch to right knee daily.Elsy tor Vitamin deficiency 29274 002 E56.9 continue pyridoxine 100 mg daily ,thiamine 100 mg daily ,MVI daily Pain of knee region 1003 813572 M25.569 stable.lid oderm patch right kneediclof enac gel bidtylenol 650 mg q6hr prn [id number] MD KAREN Cooper [address] [place] [address] [place] [address] 04/05/2025 11:54:28 04/07/2025 10:01:04 Cellulitis of face 716196967 L03.526 3825402 left perioccula r cellultis developing over past 24 hoursconce rn for bacterial etiologyst art augmentin 875 mb bid x 10 dayprobiot ic bid x 2 weekscbc bmp orderedben adryl 25 mg q 6 prnmonitor for change [id number] [facility] [address] [facility] [address] [place] [address] 04/21/2025 05:52:11 04/22/2025 11:06:56 Acute abdominal pain 976433074 R10.9 50279 reports times 1 week associated with nausea and vomiting and diarrhea.r eports flatulence , bloatinghy poactive BS notedLast BM was small a few days agowill get KUB, UA and labscontin ue zofran Chronic ob structive pulmonary disease 37759059 J43.8 stableCont inue Advair 250/50 BID,contin ue Combivent Respimat 1 puff TIDcontinu e albuterol HFA 1 puff q 4 hrs prnMonitor resp. status. Mixed anxi ety and depressive disorder 604153496 F41.8 stableCont inue mirtazapin e 15 mg qhspsych prn Gastroesop hageal reflux disease without esophagitis 059500131 K21.9 stable/Con tinue famotidine 20 mg qhsMonitor for sxs Hypothyroidism 05839648 E03.8 Continue levothyrox ine 75 mcg qdmonitor labs prn Chronic pain 61223817 G8 9.29 stableAlso gets lidocaine patch to right knee daily.Elsy tor Vitamin deficiency 40017 002 E56.9 continue pyridoxine 100 mg daily ,thiamine 100 mg daily ,MVI daily Pain of knee region 1003 876778 M25.569 stable.lid oderm patch right kneediclof enac gel bidtylenol 650 mg q6hr prn 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 63325 resolvingl eft periocular noted ith residual rednesscom pleted acyclovir Health Concerns Section Related Observation LastModified by Organization Detai ls LastModified Time None Recorded Concern Status LastModified by Organization Details LastModified Time None Recorded Advance Directives Directive Y: DNI otherwise full code Payers Insurance Date Sequence Insurance Name Policy Number Policy Martino Covered Member ID Martino Member ID Guarantor Name 04/21/2025 2 [place] [facility] Brittanie Call [id number] Brittanie Call 04/21/2025 1 [place] [employer] Brittanie Call [id number] Brittanie Call Notes Date Note Type Note [...] [facility], [address], [place], [address], [employer] [facility] 09/18/2024 18:11:40 10/12/2024 text/html ROS as noted [...] [facility], [address], [place], [address], [employer] 10/12/2024 15:53:56 01/10/2025 text/html ROS as noted [...] is no acute concerns. [facility] [address] , [address], [place], [address], [facility] 01/11/2025 10:18:20 04/05/2025 text/html Patient is an 84 yo female LTC resident seen for MD visit. Over the past 24 hours has developed left jose guadalupe orbital inflammation and erythema. Abhinav Gage MD [address] [facility], [address], [place], [address], [facility] 04/05/2025 12:00:01 04/21/2025 text/html ROS as noted [...] and or infectious causes. [facility] [address] [facility], [address], [place], [address], [facility] 04/21/2025 13:24:40 OBGyn Episode No OBEpisode recorded.
[2025-09-07 05:37] LABS: MANUAL DIFF FLAG NO
[2025-09-07 06:11] LABS: Hematocrit 36.0 % (37.0-47.0); Hemoglobin 11.9 g/dl (12.0-16.0); Imm Gran Abs Auto 0.03 X10*3/uL (0.00-0.03); Imm Gran Pct Auto 0.4 % (0.0-0.4); Lymphocytes Absolute Auto 2.0 X10*3/uL (1.2-4.9); Mean Corpuscular HGB Conc 33.1 g/dl (31.0-35.0); Mean Corpuscular Hemoglobin 30.7 pg (27.0-33.0); Mean Corpuscular Volume 92.8 fL (80.0-98.0); NRBC Abs Auto 0.000 X10*3/uL (0.0-0.012); NRBC Pct Auto 0.0 /100WBC (0.0-0.2); Platelet Count 217 X10*3/uL (160-400); Red Blood Count 3.88 X10*6/uL (4.20-5.50); White Blood Count 8.3 X10*3/uL (4.8-10.8)
[2025-09-07 06:37] LABS: Anion Gap 11 (12-20); Blood Urea Nitrogen 21 mg/dL (9-16); Calcium 8.9 mg/dL (8.4-10.2); Carbon Dioxide 26 mmol/L (22-29); Chloride 107 mmol/L (96-108); Estimated Glomerular Filt Rate > 60; Lipase 13 U/L (8-78); Potassium 3.4 mmol/L (3.3-5.1); Sodium 141 mmol/L (135-145)
[2025-09-07 06:49] LABS: Procalcitonin 0.04 ng/mL
== END 2025-09-07 05:33 | disposition home or self-care (01) ==
LOC: HO.MMNH3L 05:32
PROVIDERS: Visit Provider Physician Assistant Medical
DX: J44.9 Chronic obstructive pulmonary disease, unspecified (principal)
CPT/HCPCS: 36415; 80048; 83690; 84145; 85025

== ENCOUNTER 2025-10-01 12:47 | Outpatient (REF) | payer MEDICARE, SELFPAY ==
[2025-10-01 12:56] LABS: Appearance Urine Cloudy; Glucose Urine UA Negative (Negative); PH 6.0 (5.0-9.0); Specific Gravity - Urine 1.015 (1.005-1.025); UMIC TRIGGER UA YES
--- OUTSIDE RECORDS SUMMARY | 2025-10-01 14:36 | XMS_ITS | Clinical Summary ---
Author Organization [facility] Address [address] [place] [address] Care Team Providers Care Outcomes Specialist Name Role Phone Alejandra Mo MD Primary Care Provider [phone] Surgical History Surgery Date Site/Laterality Comments ANKLE SURGERY PROCEDURE: HISTORICAL ANKLE SURGERY OTHER SURGICAL HISTORY PROCEDURE: [place] TOTAL ABDOMINAL HYSTERECT W/WO RMVL TUBE OVARY [...] on file Sexual Orientation Not on file Plan of Treatment Health Maintenance Due Date [...] Documents on File Type Date Recorded Patient Mac Artist Expl anation Health Care Decision (hx) 08/21/2019 AD MYERS DIRECTIVE Health Care Decision (hx) 07/28/2019 AD MYERS DIRECTIVE Care Teams Outcomes Specialist Relationship Specialty Start Date End Date Alejandra Mo MD PCP - General Internal Medicine 12/21/20
--- OUTSIDE RECORDS SUMMARY | 2025-10-01 14:36 | XMS_ITS | Data Portability ---
Author Organization [facility], Main Office Address [address] [facility] [address] [place] [address] Care Team Providers Care Joint Filler Name Role Phone KAREN CONTEH 3RD FLOOR OTHER [phone] Assessment Encounter Date Assessment Date Assessment LastModified [...] Address Organization Details Recorded Time Tuberculos is 30964146 [facility] Healthcare associated bacterial pneumonia 590123187 [facility] 10:16:18 Diagnostic pneumomedi astinum Active 2018 Hina gonzalez, [facility] 9 10:16:34 Severe protein-ca yobani malnutriti on (Bell: less than 60 percent of standard weight) 976221146 Active 2018 Hina gonzalez, [facility] 9 10:17:04 Mediastina l emphysema 28748618 Active 2018 Hina gonzalez, [facility] 9 10:17:42 History of malignant neoplasm of ovary 021356779 Active 2018 Hinamarie gonzalez, [facility] 9 10:18:05 Mixed anxiety and depressive disorder 413018981 Active 2018 Nichelle gonzalez, [facility] 9 10:56:15 Chronic obstructiv e pulmonary disease 84515060 Active 2019 Kianna Alvarez MD [address] [facility], [address], [place], [address] , [facility] 0 22:40:16 Hypothyroi dism 22555772 Active 2019 Toma Alvarado MD [address] [facility], [address], [place], [address] , [facility] 0 09:30:52 SARS-CoV-2 Active 2019 SON LEIJA NP [address] [facility], [address], [place], [address] , [facility] 0 11:35:17 Pain in right knee Active 2020 SON LEIJA NP [address] [facility], [address], [place], [address] , [facility] [facility] 1 13:53:06 Gastroesop hageal reflux disease without esophagiti s 564658887 Active 2020 SON LEIJA NP [address] [facility], [address], [place], [address] , [facility] [facility] 1 12:16:37 Vitamin deficiency 63644004 Active 2020 SON LEIJA NP [address] [facility], [address], [place], [address] , [facility] 1 12:17:06 Pain of left knee region [id number] 09 Active 2022 SON LEIJA NP [address] [facility], [address], [place], [address] , [facility] 3 13:05:00 Chronic pain 44442424 Active 2023 Kianna Alvarez MD [address] [facility], [address], [place], [address] , [facility] 4 11:01:01 Problem Notes None recorded. [...] 94 % 118/67 mm[Hg] [facility] [address] [facility], [address], [place], [address], [facility] 5 10:17:43 Date Recorded Body height Respiratory rate Body temperature Oxygen saturation Heart rate Systolic And Diastolic Provider Name and Address Organization Details Last Updated DateTime 5 149.86 cm 18 /min 97.2 [degF] 96 % 74 /min 120/85 mm[Hg] [facility] [address] [facility], [address], [place], [address], [facility] 5 13:08:28 Date Recorded Body height Heart rate Respiratory rate Body temperature Oxygen saturation Systolic And Diastolic Provider Name and Address Organization Details Last Updated DateTime 4 149.86 cm 75 /min 18 /min 98 [degF] 98 % 131/69 mm[Hg] [facility] [address] [facility], [address], [place], [address], [facility] 4 18:09:49 Date Recorded Body height Heart rate Respiratory rate Body temperature Oxygen saturation Systolic And Diastolic Provider Name and Address Organization Details Last Updated DateTime 4 149.86 cm 68 /min 18 /min 97.1 [degF] 96 % 134/70 mm[Hg] [facility] [address] [facility], [address], [place], [address], [facility] 4 15:34:38 Social History Question Answer Notes LastModified by Organizat ion Details LastModified Time Tobacco Smoking Status Former Smoker smoked 1.5 ppd, quit many yrs ago Kianna Alvarez MD [address] [facility], [address], [place], [address], [facility] 08/16/2023 17:37:37 Do You Have An Advance Directive? Yes DNI Otherwise Full Code [id number] Information not available 08/09/2020 How Much Tobacco Do You Chew? None [id number] Information not available 08/09/2020 What Is Your Code Status? DNI Information not available 03/28/2023 Where Do You Live? [facility] Information not available 03/28/2023 Legal Guardian? No Informati on not available 03/28/2023 Do You Have A Medical Power Of Contracting Manager? Yes Not Invoked Information not available [...] Many Years Have You Smoked Tobacco? 60 [id number] Information not available 08/09/2020 Sex: Unknown Functional Status Question Answer Note LastModified by Organizat ion Details LastModified Time Do you use any illicit or recreational drugs? No Information not available 03/28/2023 Do you or have you ever used any other forms of tobacco or nicotine? No Information not available 03/28/2023 What is your level of alcohol consumption? None [id number] Information not available 08/09/2020 Do you or have you ever used smokeless tobacco? Never used smokeless tobacco [id number] Information not available 08/09/2020 Do you or have you ever used e-cigarettes or vape? Never used electronic cigarettes [id number] Information not available 08/09/2020 Mental Status None recorded. Family History Relationship Description Onset Age of this Age Resolved Age Notes LastModified by Organization Details LastModified Time Father No [facility] Not [facility] 08/21 09:44:07 Mother No current problems or disability iroua Not available 08/21 09:44:07 Notes:N/C Medical History No medical history recorded. Gynecological HistoryNo gynecological history recorded. Obstetrics History GPAL:G 0 P 0 0 0 0 Immunizations Vaccine Type Date Status Note Provider Nam e and Address Organization Details Recorded Time Influenza, adjuvanted, quadrivalent, PF 08/27/2022 completed Gabriela gonzalez, [facility] 11/01/2023 11:51:08 Influenza, adjuvanted, quadrivalent, PF 05/20/2023 completed Gabriela gonzalez [facility] 11/01/2023 11:51:23 Past Encounters Encounter ID Performer Location Encounter Start Date Encounter Closed Date Diagnosis/Indication Diagnosis SNOMED-CT Code Diagnosis ICD10 Code Diagnosis IMO Codes Diagnosis Note [id number] ROMY PINEDA [address] [place], [place] [address] [address] 08/21/2019 09:44:29 09/01/2019 10:32:18 Tuberculosis 23751123 A18.89 continue Isoniazid, Rifampin, Pyrazinami de, Pyridoxine f/u at [facility] TB clinic on 08/25. Healthcare associated bacterial pneumonia 156666998 Y95 completed abx txcontinue brovana, pulmicort, duonebs scheduled and prn albuterolp ulmo and RT to follow here. 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 Mediastinal emphysema 16 453300 J98.2 pneumomedi astinum related to infection/ bronchosco pyno interventi on neededif resp sx develop will repeat cxr/CT chest Physical deconditioning 1130289417 9102 R68.89 PT/OT eval. [id number] Abhinav Gage MD KAREN WERO [address] [place] [address] [place] [address] 08/24/2019 08:02:58 09/01/2019 10:59:44 Tuberculosis 02444675 A15.0 see HPIfollchristian d by ID of note in hospital case discussed with dept of public health ID and determined it was safe to take patient off airborne precaution s as she had been treated for > 14 [facility] courseadd probioticu pdate ID with change in presentati onmonitor respirator y function Healthcare associated bacterial pneumonia [id number] Y95 see HPIcomplet ed vanco and zosynsee above Asthenia 81034306 R53.1 PT OT eval and treatmonit or fall risk Severe protein-calorie malnutrition (Bell: less than 60 percent of standard weight) 336295243 E41 carrying dx from hospitaldi etary evalmonito r weights and PO intake History of malignant neoplasm of ovary 252231162 Z85.43 added to PMH [id number] Nichelle Dooley NP KAREN WERO [address] [place] [address] [place] [address] 09/01/2019 07:19:48 09/04/2019 15:23:56 Tuberculosis 92370509 A15.0 see HPIfojaida d by ID of note in hospital case discussed with dept of public health ID and determined it was safe to take patient off airborne precaution s as she had been treated for > 14 daysf/u with [facility] current Ab courseprob ioticupdat e ID with change in presentati onmonitor respirator y function Healthcare associated bacterial pneumonia 564712728 Y95 see HPIcomplet ed vanco and zosynsee above Asthenia 13056811 R53.1 PT OT eval and treatmonit or fall risk Severe protein-calorie malnutrition (Bell: less than 60 percent of standard weight) 506037820 E41 carrying dx from hospitaldi etary eval pt has gained 2 lbs in the past week according to weekly weight data, has good reported appetite. monitor weights and PO intake [id number] Nichelle Dooley NP [facility] [address] [place] [address] 09/08/2019 07:58:08 09/17/2019 14:56:26 Tuberculosis [id number] A15.0 see Jalen garibay by ID of [...] respirator y function Healthcare associated bacterial pneumonia 287976715 Y95 see HPIcomplet ed vanco and zosynsee above Asthenia 22271816 R53.1 PT OT eval and treatmonit or fall risk Severe protein-calorie malnutrition (Bell: less than 60 percent of standard weight) 383843795 E41 carrying dx from hospitaldi etary eval pt has good reported appetite. monitor weights and PO intake [id number] KEILA Sepulveda WERO [address] [place] [address] [place] [address] 09/15/2019 07:35:21 09/23/2019 11:38:11 Tuberculosis [id number] A15.0 see Jalen garibay by TB clinic [...] respirator y function Healthcare associated bacterial pneumonia 753320629 Y95 see HPIcomplet ed vanco and zosynsee above Asthenia 31450422 R53.1 PT OT eval and treatmonit or fall risk Severe protein-calorie malnutrition (Bell: less than 60 percent of standard weight) 000772113 E41 carrying dx from hospitaldi etary eval- pt now on ensures pt has good reported appetite. monitor weights and PO intake [id number] Nichelle Dooley NP KAREN WERO [address] [place] [address] 09/22/2019 09:39:42 09/29/2019 09:21:51 Tuberculosis [id number] A15.0 see HPIcorina d by TB clinic [...] O2 orders monitor respirator y function Asthenia 66263128 R53.1 Pt has been DCd from PT- she has reached her baseline, only walking about 30 ft with walker, varies with transfers. monitor fall risk Severe protein-calorie malnutrition (Bell: less than 60 percent of standard weight) 748469509 E41 carrying dx from hospital has lost about 9lbs in the past month pt on ensures tid will increase mirtazapin e to 15mg qd today monitor ?weight loss due to ovarian cancer History of malignant neoplasm of ovary 754535062 Z85.43 added to PMH Per family the pt had one day of treatment for this and then never followed up with this- she refused care. Mixed anxi ety and depressive disorder 435383976 F41.8 will order psych eval today monitor mood [id number] KEILA Sepulveda [address] [place] [address] 09/28/2019 07:22:29 10/01/2019 14:27:45 Tuberculosis [id number] A15.0 see HPI stable. followed by TB [...] O2 orders monitor respirator y function Asthenia 61956530 R53.1 Pt has been DCd from PT- she has reached her baseline, only walking about 30 ft with walker, varies with transfers. monitor fall risk Severe protein-calorie malnutrition (Bell: less than 60 percent of standard weight) 015054686 E41 carrying dx from hospital has lost over 10lbs since her admission, however she appears to have leveled out. pt on ensures tid mirtazapin e increased to 15mg qd last week continue to monitor ?weight loss due to ovarian cancer History of malignant neoplasm of ovary 597209120 Z85.43 added to PMH Per family the pt had one day of treatment for this and then never followed up with this- she refused care. Mixed anxi ety and depressive disorder 270425347 F41.8 awaiting psych eval monitor mood [id number] KEILA Sepulveda WERO [address] [place] [address] 10/08/2019 07:24:07 10/12/2019 16:27:09 Tuberculosis [id number] A15.0 see HPI stable. followed by TB [...] less than 60 percent of standard weight) 181692665 E41 carrying dx from hospital has lost over 7lbs since her admission, appears to be stable at this time.pt on ensures tid mirtazapin e 15mg qd continue to monitor History of malignant neoplasm of ovary 245616877 Z85.43 added to PMH Per family the pt had one day of treatment for this and then never followed up with this- she refused care. Mixed anxi ety and depressive disorder 407929978 F41.8 pt recently seen by [facility], no consult notes in chart yet monitor mood [id number] Nichelle Dooley NP [address] [address] 10/12/2019 08:06:04 10/16/2019 13:50:57 Tuberculosis 62971587 A15.0 see HPI stable. followed by TB [...] less than 60 percent of standard weight) 038422601 E41 carrying dx from hospital pt on ensures tid mirtazapin e 15mg qd pt had initially lost weight, now improving continue to monitor Mixed anxi ety and depressive disorder 352125039 F41.8 pt recently seen by [facility], awaiting consult notes. monitor mood History of malignant neoplasm of ovary 968594041 Z85.43 added to PMH Per family the pt had one day of treatment for this and then never followed up with this- she refused care. [id number] KEILA Sepulveda [address] [place] [address] 10/19/2019 08:10:14 10/22/2019 14:29:13 Tuberculosis 05887587 A15.0 see HPI stable. followed by TB [...] less than 60 percent of standard weight) 477382230 E41 carrying dx from hospital pt on ensures tid mirtazapin e 15mg qd pt had initially lost weight, now improving continue to monitor Mixed anxi ety and depressive disorder 121305522 F41.8 mirtazapin e 15mg qd monitor mood psych following History of malignant neoplasm of ovary 807882147 Z85.43 added to PMH Per family the pt had one day of treatment for this and then never followed up with this- she refused care. [id number] MD KAREN Cooper [address] [address] 11/18/2019 15:07:44 11/22/2019 15:31:49 Tuberculosis 90877487 A15.0 followed by [place] [facility] Ab courseupda te ID with change in presentati onmonitor respirator y functioncu rrently stable at baseline Nausea and vomiting 1692 1999 R11.2 appears secondary to medication administra tibooll have patient take zofran priormonit or for sx control [id number] Nichelle Dooley NP [address] [address] 12/01/2019 12:14:48 12/11/2019 14:40:43 Tuberculosis 14633682 A15.0 followed by ID seen by tb [...] less than 60 percent of standard weight) 307588087 E41 carrying dx from hospital pt on ensures tid mirtazapin e 15mg qd pt continues to have weight loss recent DC of abx as above may be helpful, as these were likely causing her some nausea continue to monitor weights bi-weekly for 4 weeks Mixed anxi ety and depressive disorder 459100362 F41.8 mirtazapin e 15mg qd monitor mood psych following History of malignant neoplasm of ovary 778919910 Z85.43 added to PMH Per family the pt had one day of treatment for this and then never followed up with this- she refused care. [id number] KEILA Sepulveda WERO [address] [place] [address] [place] [address] 12/29/2019 12:37:57 01/01/2020 15:52:34 Cough 30412825 R05 With associated chills, fatigue, body aches. Will check for flu and resp viral panel, cbc/cmp of note there is a resident on the floor +for flu A encourage fluids supportive care continue to monitor [id number] Nichelle Dooley NP KAREN CONTEH [address] [place] [address] [place] [address] 01/15/2020 14:07:52 01/21/2020 13:07:58 Tuberculosis 11888740 A15.0 followed by ID continues on multiple [...] on site prn currently stable at baseline [id number] Kianna Alvarez MD KAREN CONTEH [address] [place] [address] [place] [address] 01/22/2020 17:32:59 01/28/2020 18:46:52 Tuberculosis 32427555 A15.0 She is on ethambutol 800 mg [...] less than 60 percent of standard weight) 970372656 E41 She has lost 20# since here. BMI still in nl. range. Was given this dx in the hospital. Continue ensure TID and mirtazapin e 15 mg qd Continue to monitor weights Mixed anxi ety and depressive disorder 335346476 F41.8 Mood good today. Continue mirtazapin e 15 mg qd. monitor mood Follow with NEG as able. History of malignant neoplasm of ovary 891127781 Z85.43 Hx of. Had DYLLAN/BSO Per family the pt had one day of treatment for this and then never followed up with this- she refused care. Chronic ob structive pulmonary disease 05013658 J43.8 Likely with underlying COPD. Continue meds as above. Will need full PFTs when able. [id number] KEILA BRASHER [address] [place] [address] 03/18/2020 09:19:47 03/22/2020 10:40:26 Chronic obstructive pulmonary disease 84152578 J44.9 monitor for any sob, O2 if needed Mixed anxi ety and depressive disorder 474712634 F41.8 Continue mirtazapin e 15 mg qd. monitor mood Follow with NEG as able. Severe protein-calorie malnutrition (Bell: less than 60 percent of standard weight) 622374783 E43 Continue ensure TID and mirtazapin e 15 mg qd Continue to monitor weights Tuberculosis 28928551 A1 8.89 continue ethambutol 800 mg qd, isoniazid 300 mg qd and pyrazinami de 1000 mg qd Nebs all transition ed to inhalers, now on combivent QID, symbicort 80/4.5 two puffs BID and proair with spacer q 4h prn. Continue O2 prn to maintain sats >90% Monitor respirator y function F/U with resp therapist and pulmonary as able. [id number] KEILA BRASHER [address] [place] [address] 04/11/2020 10:32:37 04/19/2020 15:35:04 Mixed anxiety and depressive disorder 907869069 F41.8 Continue mirtazapin e 15 mg qd. monitor mood Follow with NEG as able. [id number] MD KAREN Morales [address] [place] [address] 05/20/2020 06:57:19 05/24/2020 10:36:19 Chronic obstructive pulmonary disease 31807049 J44.9 Symbicort 4.5-80: 2 puffs bidCombive nt respimat 20-100: one puff tidalbuter ol HFA 1 puff q4h prn will monitor History of malignant neoplasm of ovary 117784373 Z85.43 s/p DYLLAN, SBO; has refused further treatment Mixed anxi ety and depressive disorder 493156642 F41.8 mirtazapin e 15 mg at [facility] monitor Tuberculosis 25037487 A1 8.89 fu [facility] clinic Hypothyroidism 60100815 E03.8 levothyrox ine 75 mcg dailywill monitor [id number] KEILA BRASHER [address] [place] [address] 07/13/2020 10:24:49 07/15/2020 14:24:57 Chronic obstructive pulmonary disease 46173446 J44.9 monitor for any sob, O2 if needed symbicort 80/4.5 q12 hr combivent 20/100 tid flonase daily Healthcare associated bacterial pneumonia 558375960 J15.9 recovered Hypothyroidism 04250223 E03.9 levothyrox ine 75 mcg daily will monitor Mixed anxi ety and depressive disorder 518395105 F41.8 mirtazapin e 15 mg qd. monitor mood Follow with NEG as able. Tuberculosis 74645914 A1 8.89 combivent tid, symbicort 80/4.5 two puffs BID proair with spacer q 4h prn. Continue O2 prn to maintain sats >90% Monitor respirator y function F/U with resp therapist and pulmonary as able. Severe protein-calorie malnutrition (Bell: less than 60 percent of standard weight) 479096289 E43 ensure TID and mirtazapin e 15 mg qd thiamine 100 mg daily B6 100 daily Continue to monitor weights [id number] KEILA BRASHER [address] [place] [address] 08/23/2020 11:08:00 08/25/2020 13:34:50 Chronic obstructive pulmonary disease 06682928 J44.9 monitor for any sob, O2 if needed symbicort 80/4.5 q12 hr combivent 20/100 tid flonase daily SARS-CoV-2 726718888 U07 .1 encourage po intake O2 prn consider IVF if she becomes anorexic [id number] SON LEIJA NP [address] [address] 08/29/2020 12:18:09 08/31/2020 15:39:28 Chronic obstructive pulmonary disease 75907453 J44.9 monitor for any sob, O2 if needed symbicort 80/4.5 q12 hr combivent 20/100 tid flonase daily loratadine 10mg daily Healthcare associated bacterial pneumonia 960622283 J15.9 recovered History of malignant neoplasm of ovary 818965047 Z85.43 DYLLAN SBO no further treatment Hypothyroidism 85017036 E03.9 levothyrox ine 75 mcg daily will monitor Mediastinal emphysema 16 274868 J98.2 2019 pneumomedi astinum related to infection/ bronchosco py no interventi on needed if resp sx develop will repeat cxr/CT chest Mixed anxi ety and depressive disorder 024100835 F41.8 mirtazapin e 15 mg qd. monitor mood Follow with NEG as able. SARS-CoV-2 730776574 U07 .1 encourage po intake O2 prn consider IVF if she becomes anorexic Severe protein-calorie malnutrition (Bell: less than 60 percent of standard weight) 356658680 E43 ensure TID and mirtazapin e 15 mg qd thiamine 100 mg daily B6 100 daily Continue to monitor weights Tuberculosis 38808670 A1 8.89 combivent tid, symbicort 80/4.5 two puffs BID proair with spacer q 4h prn. Continue O2 prn to maintain sats >90% Monitor respirator y function F/U with resp therapist and pulmonary as able. [id number] KEILA BRASHER WERO [address] [place] [address] 08/30/2020 08:12:16 09/02/2020 10:34:19 SARS-CoV-2 231787574 U07.1 encourage po intake O2 prn consider IVF if she becomes anorexic [id number] SON LEIJA NP [address] [address] 08/31/2020 11:03:06 09/02/2020 11:07:24 SARS-CoV-2 495851133 U07.1 08/16, 08/23 positive encourage po intake O2 prn consider IVF if she becomes anorexic [id number] SON LEIJA NP [address] [address] 09/01/2020 09:30:51 09/06/2020 10:25:57 SARS-CoV-2 395998086 U07.1 08/16, 08/23 positive encourage po intake O2 prn consider IVF if she becomes anorexic [id number] SON LEIJA NP [address] [address] 09/02/2020 12:59:16 09/06/2020 10:40:27 SARS-CoV-2 911384554 U07.1 08/16, 08/23 positive, 08/29 negative encourage po intake O2 prn consider IVF if she becomes anorexic [id number] Toma Alvarado MD [address] [address] 09/23/2020 06:10:55 09/27/2020 11:42:12 Chronic obstructive pulmonary disease 72315502 J41.0 Advair 250-50: one puff bidCombive nt Respimat 20-100: one puff tidalbuter ol HFA 1 puff q4h prn will monitor History of malignant neoplasm of ovary 708260266 Z85.43 s/p DYLLAN, SBO; has refused further treatment Hypothyroidism 77414445 E03.8 levothyrox ine 75 mcg dailywill monitor Mixed anxi ety and depressive disorder 860405984 F41.8 mirtazapin e 15 mg at [facility] monitor SARS-CoV-2 313743308 U07 .1 recoveredw ill continue to monitor [id number] SON LEIJA NP [address] [address] 11/15/2020 13:47:46 11/16/2020 14:55:19 Chronic obstructive pulmonary disease 68036936 J44.9 monitor for any sob, O2 if needed advair 250/50 daily combivent 20/100 tid flonase daily albuterol prn loratadine 10mg daily Healthcare associated bacterial pneumonia 154981755 J15.9 recovered History of malignant neoplasm of ovary 466321895 Z85.43 DYLLAN SBO no further treatment Hypothyroidism 53554110 E03.9 levothyrox ine 75 mcg daily will monitor Mediastinal emphysema 16 207673 J98.2 2019 pneumomedi astinum related to infection/ bronchosco py no interventi on needed if resp sx develop will repeat cxr/CT chest Mixed anxi ety and depressive disorder 377178813 F41.8 mirtazapin e 15 mg qd. monitor mood Follow with NEG as able. SARS-CoV-2 059738701 U07 .1 recovered 08/16, 08/23 positive, 08/29 negative encourage po intake O2 prn consider IVF if she becomes anorexic Severe protein-calorie malnutrition (Bell: less than 60 percent of standard weight) 937993878 E43 ensure TID and mirtazapin e 15 mg qd thiamine 100 mg daily B6 100 daily Continue to monitor weights Tuberculosis 06694634 A1 8.89 combivent tid, advair daily proair with spacer q 4h prn. Continue O2 prn to maintain sats >90% Monitor respirator y function F/U with resp therapist and pulmonary as able. Pain in right knee 66158 53503 29566 M25.561 lidoderm patch right kneediclof enac gel bidtylenol 650 mg q6hr prn [id number] Toam Alvarado MD [address] [address] 01/06/2021 07:13:09 01/10/2021 10:35:09 Chronic obstructive pulmonary disease 70122414 J41.0 Advair 250-50: one puff bidCombive nt Respimat 20-100: one puff tidalbuter ol HFA 1 puff q4h prn will monitor History of malignant neoplasm of ovary [id number] Z85.43 s/p DYLLAN, SBO; has refused further treatment Hypothyroidism 42784592 E03.8 levothyrox ine 75 mcg dailywill monitor Mixed anxi ety and depressive disorder 580445161 F41.8 mirtazapin e 15 mg at hswill monitor SARS-CoV-2 252455314 U07 .1 diagnosed 09/02 recovered will continue to monitor [id number] [facility] LEIJA [facility] [address] [place] [address] 03/01/2021 08:04:33 03/03/2021 13:38:48 Chronic obstructive pulmonary disease 06652748 J44.9 monitor for any sob, O2 if needed advair 250/50 bid combivent 20/100 tid flonase daily albuterol prn loratadine 10mg daily History of malignant neoplasm of ovary 263230964 Z85.43 DYLLAN SBO no further treatment Hypothyroidism 50367410 E03.9 levothyrox ine 75 mcg daily will monitor Mediastinal emphysema 16 493943 J98.2 2019 pneumomedi astinum related to infection/ bronchosco py no interventi on needed if resp sx develop will repeat cxr/CT chest Mixed anxi ety and depressive disorder 258155340 F41.8 mirtazapin e 15 mg qd. monitor mood Follow with NEG as able. Pain in right knee 18195 68131 66759 M25.561 lidoderm patch right kneediclof enac gel bidtylenol 650 mg q6hr prn Severe protein-calorie malnutrition (Bell: less than 60 percent of standard weight) 093868166 E43 ensure TID mirtazapin e 15 mg qd thiamine 100 mg daily B6 100 daily Continue to monitor weights Tuberculosis 93515516 A1 8.89 combivent tid, advair 250/50 bid proair with spacer q 4h prn. Continue O2 prn to maintain sats >90% Monitor respirator y function F/U with resp therapist and pulmonary as able. 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 mirtazapin e 15 mg at hswill monitor SARS-CoV-2 509864006 U07 .1 diagnosed 09/02 recovered will continue to monitor Gastroesop hageal reflux disease without esophagitis 969992643 K21.9 famotidine 20 mg at hswill monitor Acute conjunctivitis 537 23211 H10.011 improvingc omplete course of polytrim solutionwi ll monitor [id number] SON LEIJA NP [address] [address] 06/14/2021 11:54:10 06/16/2021 10:06:14 Chronic obstructive pulmonary disease 66515511 J41.0 monitor for any sob, O2 if needed advair 250/50 bid combivent 20/100 tid flonase daily albuterol prn loratadine 10mg daily Hypothyroidism 99769014 E03.8 levothyrox ine 75 mcg daily will monitor Mixed anxi ety and depressive disorder 357768517 F41.8 mirtazapin e 15 mg qd. monitor mood Follow with NEG as able. Pain in right knee 42010 59296 48126 M25.561 lidoderm patch right kneediclof enac gel bidtylenol 650 mg q6hr prn Tuberculosis 15782024 A1 8.89 combivent tid, advair 250/50 bid proair with spacer q 4h prn. O2 prn to maintain sats >90% Monitor respirator y function F/U with resp therapist and pulmonary as able. Gastroesop hageal reflux disease without esophagitis 598543414 K21.9 pepcid 20 mg daily Vitamin deficiency 33638 002 E56.9 mvi dailythiam ine 100 mg dailyB6 daily [id number] Toma Alvarado MD [address] [address] 5 08/23/2021 06:02:03 08/25/2021 11:44:21 Chronic obstructive pulmonary disease 06909152 J41.0 Advair 250-50: one puff bidCombive nt Respimat 20-100: one puff tidalbuter ol HFA 1 puff q4h prnwill monitor Gastroesop hageal reflux disease without esophagitis 714555874 K21.9 famotidine 20 mg at hswill monitor Hypothyroidism 11714577 E03.8 levothyrox ine 75 mcg dailywill monitor History of malignant neoplasm of ovary 580077967 Z85.43 s/p DYLLAN, SBOhas refused further treatment Mixed anxi ety and depressive disorder 279283397 F41.8 mirtazapin e 15 mg at hswill monitor Vitamin deficiency 67013 002 E56.8 pyridoxine 100 mg dailythiam ine 100 mg dailyMVI dailywill monitor Osteoarthritis 345176634 M17.11 APAP 650 mg q6h prndiclofe nac topical gel to right knee prnBengay cream to right knee q8h prnlidocai ne patch 4% to right knee dailywill monitor [id number] KEILA BRASHER [address] [place] [phone] 10/19/2021 12:58:57 10/24/2021 11:46:50 Chronic obstructive pulmonary disease 84816521 J41.0 monitor for any sob, O2 if needed advair 250/50 bid combivent 20/100 tid flonase daily albuterol prn loratadine 10mg daily Hypothyroidism 55670396 E03.8 levothyrox ine 75 mcg daily will monitor Mixed anxi ety and depressive disorder 501598890 F41.8 mirtazapin e 15 mg qd. monitor mood Follow with NEG as able. Pain in right knee 45993 27914 86448 M25.561 lidoderm patch right kneediclof enac gel bidtylenol 650 mg q6hr prn Tuberculosis 47373501 A1 8.89 combivent tid, advair 250/50 bid proair with spacer q 4h prn. O2 prn to maintain sats >90% Monitor respirator y function F/U with resp therapist and pulmonary as able. Gastroesop hageal reflux disease without esophagitis 540332960 K21.9 pepcid 20 mg daily Vitamin deficiency 37187 002 E56.9 mvi dailythiam ine 100 mg dailyB6 daily [id number] KEILA BRASHER WERO [address] [place] [phone] 5 11/09/2021 09:05:30 11/15/2021 08:55:12 Chronic obstructive pulmonary disease 01472376 J41.0 monitor for any sob, O2 if needed advair 250/50 bid combivent 20/100 tid flonase daily albuterol prn loratadine 10mg daily Pain in right knee 76293 95232 83141 M25.561 lidoderm patch right kneediclof enac gel bidtylenol 650 mg q6hr prn [id number] SON LEIJA NP [address] [address] 11/10/2021 10:03:11 11/15/2021 10:48:07 SARS-CoV-2 879556267 U07.1 11/08 covid positive, asymptomat icPatient covid positiveco ntinue supportive caremonito r PO intake and need for supplement al [id number] need for adjuvent therapyto ED for acute decompensa tion [id number] SON LEIJA NP [address] [address] 11/13/2021 12:31:35 11/15/2021 11:47:51 SARS-CoV-2 684014336 U07.1 11/08 covid positive, asymptomat ic-recover ed by Rhonda blakely covid positive continue supportive care monitor PO intake and need for supplement al O2 monitor need for adjuvent therapy to ED for acute decompensa tion [id number] Toma Alvarado MD [address] [address] 12/22/2021 07:56:46 12/27/2021 16:02:07 Chronic obstructive pulmonary disease 67261792 J41.0 Advair 250-50: one puff bidCombive nt Respimat 20-100: one puff tidalbuter ol HFA 1 puff q4h prnwill monitor Gastroesop hageal reflux disease without esophagitis 061748019 K21.9 famotidine 20 mg at hswill monitor Hypothyroidism 29372981 E03.8 levothyrox ine 75 mcg dailywill monitor Mixed anxi ety and depressive disorder 901033582 F41.8 mirtazapin e 15 mg at hswill monitor SARS-CoV-2 828309414 U07 .1 tested positive 11/08/21asy mptomatic coursereco shelli will continue to monitor [id number] SON LEIJA NP [address] [address] 01/19/2022 08:44:18 01/23/2022 11:01:49 Chronic obstructive pulmonary disease 34454133 J41.0 monitor for any sob, O2 if needed advair 250/50 bid combivent 20/100 tid flonase daily albuterol prn loratadine 10mg daily Hypothyroidism 29709333 E03.8 levothyrox ine 75 mcg daily will monitor Mixed anxi ety and depressive disorder 002911271 F41.8 mirtazapin e 15 mg qd. monitor mood Follow with NEG as able. Pain in right knee 73898 21785 01553 M25.561 lidoderm patch right kneediclof enac gel bidtylenol 650 mg q6hr prn Tuberculosis 58647392 A1 8.89 combivent tid, advair 250/50 bid proair with spacer q 4h prn. O2 prn to maintain sats >90% Monitor respirator y function F/U with resp therapist and pulmonary as able. Gastroesop hageal reflux disease without esophagitis 099100275 K21.9 pepcid 20 mg daily Vitamin deficiency 52995 002 E56.9 mvi dailythiam ine 100 mg dailyB6 daily [id number] SON LEIJA NP [address] [address] 02/16/2022 11:50:24 02/20/2022 12:03:24 Chronic obstructive pulmonary disease 98349753 J41.0 monitor for any sob, O2 if needed advair 250/50 bid combivent 20/100 tid flonase daily albuterol prn loratadine 10mg daily Hypothyroidism 96894096 E03.8 levothyrox ine 75 mcg daily will monitor Mixed anxi ety and depressive disorder 730416350 F41.8 mirtazapin e 15 mg qd. monitor mood Follow with NEG as able. Pain in right knee 44051 33545 28007 M25.561 lidoderm patch right kneediclof enac gel bidtylenol 650 mg q6hr prn Tuberculosis 47629404 A1 8.89 combivent tid, advair 250/50 bid proair with spacer q 4h prn. O2 prn to maintain sats >90% Monitor respirator y function F/U with resp therapist and pulmonary as able. Gastroesop hageal reflux disease without esophagitis 622236620 K21.9 pepcid 20 mg daily Vitamin deficiency 97984 002 E56.9 mvi dailythiam ine 100 mg dailyB6 daily [id number] CHASE Eduardo [address] [address] 03/08/2022 11:23:24 03/13/2022 16:32:13 Cellulitis of finger of right hand [id number] 8258691 L03.011 bacitracin cream apply qd till healedmoni tor. [id number] Toma Alvarado MD [address] [address] 5 03/30/2022 08:39:42 04/03/2022 11:43:48 Chronic obstructive pulmonary disease 82638993 J41.0 Advair 250-50: one puff bidCombive nt Respimat 20-100: one puff tidalbuter ol HFA 1 puff q4h prnwill monitor Gastroesop hageal reflux disease without esophagitis 066291551 K21.9 famotidine 20 mg at hswill monitor Hypothyroidism 60132360 E03.8 levothyrox ine 75 mcg dailywill monitor Mixed anxi ety and depressive disorder 778960162 F41.8 mirtazapin e 15 mg at hswill monitor Vitamin deficiency 07879 002 E56.9 pyridoxine 100 mg dailythiam ine 100 mg dailyMVI dailywill monitor Osteoarthritis 063046428 M17.11 APAP 650 mg q6h prndiclofe nac topical gel to right knee bid prnBengay cream to right knee q8h prnlidocai ne patch 4% to right knee dailywill monitor [id number] SON LEIJA NP [address] [address] 05/23/2022 13:08:08 05/29/2022 16:22:19 Chronic obstructive pulmonary disease 42401788 J41.0 Advair 250-50: one puff bidCombive nt Respimat 20-100: one puff tidalbuter ol HFA 1 puff q4h prnwill monitor Gastroesop hageal reflux disease without esophagitis 704062814 K21.9 famotidine 20 mg at hswill monitor Hypothyroidism 64002910 E03.8 levothyrox ine 75 mcg dailywill monitor Mixed anxi ety and depressive disorder 931854698 F41.8 mirtazapin e 15 mg at hswill monitor Vitamin deficiency 00734 002 E56.9 pyridoxine 100 mg dailythiam ine 100 mg dailyMVI dailywill monitor Osteoarthritis 118304110 M17.11 APAP 650 mg q6h prndiclofe nac topical gel to right knee bid prnBengay cream to right knee q8h prnlidocai ne patch 4% to right knee dailywill monitor Tuberculosis 23677522 A1 8.89 combivent tid, advair 250/50 bid proair with spacer q 4h prn. O2 prn to maintain sats >90% Monitor respirator y function F/U with resp therapist and pulmonary as able. [id number] MD KAREN Morales WERO [address] [place] [phone] 07/13/2022 07:10:41 07/17/2022 14:08:46 Chronic obstructive pulmonary disease 17874743 J41.0 Advair 250-50: one puff bidCombive nt Respimat 20-100: one puff tidalbuter ol HFA 1 puff q4h prnwill monitor Hypothyroidism 59405344 E03.8 levothyrox ine 75 mcg dailywill monitor Mixed anxi ety and depressive disorder 846690098 F41.8 mirtazapin e 15 mg at hswill monitor Gastroesop hageal reflux disease without esophagitis 244278010 K21.9 famotidine 20 mg at hswill monitor History of malignant neoplasm of ovary 001524223 Z85.43 s/p DYLLAN, SBOhas refused further treatment [id number] SON LEIJA NP [address] [address] 09/05/2022 17:06:29 09/11/2022 14:11:08 Chronic obstructive pulmonary disease 35901140 J41.0 Advair 250-50: one puff bidCombive nt Respimat 20-100: one puff tidalbuter ol HFA 1 puff q4h prnwill monitor Hypothyroidism 80805446 E03.8 levothyrox ine 75 mcg dailywill monitor Mixed anxi ety and depressive disorder 183384926 F41.8 mirtazapin e 15 mg at hswill monitor Gastroesop hageal reflux disease without esophagitis 075806621 K21.9 famotidine 20 mg at hswill monitor Tuberculosis 69997579 A1 8.89 combivent tid, advair 250/50 bid proair with spacer q 4h prn. O2 prn to maintain sats >90% Monitor respirator y function F/U with resp therapist and pulmonary as able. Toma Alvarado MD [address] [address] 12/07/2022 10:38:11 12/11/2022 08:03:41 Chronic obstructive pulmonary disease 62133895 J41.0 Advair 250-50: one puff bidCombive nt Respimat 20-100: one puff tidalbuter ol HFA 1 puff q4h prnwill monitor Mixed anxi ety and depressive disorder 719219629 F41.8 mirtazapin e 15 mg at hswill monitor Gastroesop hageal reflux disease without esophagitis 721967976 K21.9 famotidine 20 mg at hswill monitor Hypothyroidism 57398980 E03.8 levothyrox ine 75 mcg dailywill monitor Chronic pain 81580661 G8 9.29 diclofenac gel to right knee bid prnlidocai ne patch to right knee dailyAPAP 650 mg q6h prnwill monitor [id number] SON LEIJA NP [address] [address] 5 01/28/2023 14:21:07 01/31/2023 15:22:09 Chronic obstructive pulmonary disease 79624719 J41.0 Advair 250-50: one puff bidCombive nt Respimat 20-100: one puff tidalbuter ol HFA 1 puff q4h prnwill monitor Mixed anxi ety and depressive disorder 288500351 F41.8 mirtazapin e 15 mg at hswill monitor Gastroesop hageal reflux disease without esophagitis 966966637 K21.9 famotidine 20 mg at hswill monitor Hypothyroidism 91628620 E03.8 levothyrox ine 75 mcg dailywill monitor Chronic pain 15599603 G8 9.29 diclofenac gel to right knee bid prnlidocai ne patch to right knee dailyAPAP 650 mg q6h prnwill monitor [id number] SON LEIJA NP [facility] [address] [place] [address] 02/15/2023 13:27:41 02/20/2023 16:52:34 Chronic obstructive pulmonary disease 78018075 J41.0 Advair 250-50: one puff bidCombive nt Respimat 20-100: one puff tidalbuter ol HFA 1 puff q4h prnwill monitor Mixed anxi ety and depressive disorder 605486141 F41.8 mirtazapin e 15 mg at hswill monitor Gastroesop hageal reflux disease without esophagitis 402287764 K21.9 famotidine 20 mg at hswill monitor Hypothyroidism 45021304 E03.8 levothyrox ine 75 mcg dailywill monitor Chronic pain 64622039 G8 9.29 diclofenac gel to right knee bid prnlidocai ne patch to right knee dailyAPAP 650 mg q6h prnwill monitor Vitamin deficiency 44131 002 E56.9 pyridoxine 100 mg dailythiam ine 100 mg dailyMVI dailywill monitor [id number] MD KAREN Pope WERO [address] [place] [phone] 5 03/28/2023 13:20:05 04/11/2023 13:24:13 Chronic obstructive pulmonary disease 04076132 J41.0 No current sxs.Contin ue Advair 250/50 BID, Combivent Respimat 1 puff TID and albuterol HFA 1 puff q 4 hrs prnMonitor resp. status. Mixed anxi ety and depressive disorder 990906103 F41.8 Mood good today.Cont inue mirtazapin e 15 mg at hsMonitor moodPsych follows, no GDR recommende d. Gastroesop hageal reflux disease without esophagitis 435326302 K21.9 Under good controlCon tinue famotidine 20 mg at hsMonitor for sxs Hypothyroidism 32689707 E03.8 Last TSH 02/2021 was WNLContinu e levothyrox ine 75 mcg dailyMonit or TSH yearly, will order with next labs. Chronic pain 42997242 G8 9.29 She says pain is adequately controlled .Continue diclofenac gel to right knee BID prn, lidocaine patch to right knee daily and APAP 650 mg q 6 hrs prnMonitor sxs. Vitamin deficiency 25623 002 E56.8 Continue pyridoxine 100 mg daily, thiamine 100 mg daily, and MVI dailyNo monitoring needed. [id number] SON LEIJA NP [address] [address] 5 04/05/2023 13:30:53 04/11/2023 13:56:07 Chronic obstructive pulmonary disease 91377895 J41.0 Advair 250-50: one puff bidCombive nt Respimat 20-100: one puff tidalbuter ol HFA 1 puff q4h prnwill monitor Mixed anxi ety and depressive disorder 425259778 F41.8 mirtazapin e 15 mg at hswill monitor [id number] SON LEIJA NP [address] [address] 5 05/17/2023 10:17:44 05/21/2023 16:07:38 Chronic obstructive pulmonary disease 73765950 J41.0 Advair 250-50: one puff bidCombive nt Respimat 20-100: one puff tidalbuter ol HFA 1 puff q4h prnwill monitor Mixed anxi ety and depressive disorder 279832071 F41.8 mirtazapin e 15 mg at hswill monitor Gastroesop hageal reflux disease without esophagitis 201050285 K21.9 famotidine 20 mg at hswill monitor Hypothyroidism 57595825 E03.8 levothyrox ine 75 mcg dailywill monitor Chronic pain 48922150 G8 9.29 diclofenac gel to right knee bid prnlidocai ne patch to right knee dailyAPAP 650 mg q6h prnwill monitor Vitamin deficiency 41851 002 E56.9 pyridoxine 100 mg dailythiam ine 100 mg dailyMVI dailywill monitor [id number] SON LEIJA NP KAREN CONTEH [address] [place] [address] [place] [address] 07/08/2023 13:04:17 07/09/2023 20:04:53 Pain of left knee region 0074055646 22154 M25.562 tylenol prnxray of left kneePT OT eval and treat prn [id number] MD KAREN Pope WERO [address] [place] [address] [place] [address] 08/16/2023 13:59:50 08/20/2023 11:12:11 Pain of left knee region 4823868589 80684 M25.562 Says it's much better.Con tinue diclofenac gel 4 gms BID and APAP 650 mg q 6 hrs prn.Monito r sxs. Chronic ob structive pulmonary disease 53543059 J41.0 Continues at mild baseline.C ontinue Advair 250/50 BID, Combivent Respimat 1 puff TID and albuterol HFA 1 puff q 4 hrs prnMonitor resp. status. Mixed anxi ety and depressive disorder 148093267 F41.8 Mood remains good at most times.Cont inue mirtazapin e 15 mg qhsMonitor moodPsych continues to follow intermitte ntly, no GDR recommende d. Gastroesop hageal reflux disease without esophagitis 792258807 K21.9 No current sxs.Contin ue famotidine 20 mg qhsMonitor for sxs Hypothyroidism 74503873 E03.8 Last TSH was in ont inue levothyrox ine 75 mcg dailyMonit or TSH yearly, will order with next labs. Chronic pain 43383336 G8 9.29 As above.Also gets lidocaine patch to right knee daily.Elsy tor [id number] KEILA BRASHER WERO [address] [place] [address] [place] [address] 10/09/2023 13:25:53 10/22/2023 10:00:48 Chronic obstructive pulmonary disease 47837446 J41.0 Advair 250-50: one puff bidCombive nt Respimat 20-100: one puff tidalbuter ol HFA 1 puff q4h prnwill monitor Mixed anxi ety and depressive disorder 506515205 F41.8 mirtazapin e 15 mg at hswill monitor Gastroesop hageal reflux disease without esophagitis 320401275 K21.9 famotidine 20 mg at hswill monitor Hypothyroidism 57608090 E03.8 levothyrox ine 75 mcg dailywill monitor Chronic pain 36917155 G8 9.29 diclofenac gel to right knee bid prnlidocai ne patch to right knee dailyAPAP 650 mg q6h prnwill monitor Vitamin deficiency 79725 002 E56.9 pyridoxine 100 mg dailythiam ine 100 mg dailyMVI dailywill monitor [id number] CHASE CHE [address] [address] 10/23/2023 11:46:55 10/30/2023 12:50:00 Contact dermatitis 46835722 L25.9 see hpihydroco rtisone 1% bid for 5 days and re evalPatien t encouraged to avoid scratching or touching affected areanursin g to offer prn tylenol for discomfort . [id number] Kianna Alvarez MD [address] [address] 12/10/2023 16:27:11 01/13/2024 15:10:49 Pain of left knee region 4909511778 70488 M25.562 Continues to do well with diclofenac gel 4 gms BID and APAP 650 mg q 6 hrs prn.Monito r sxs. Chronic ob structive pulmonary disease 53282924 J43.8 No recent exacerbati ons.Contin ue Advair 250/50 BID, Combivent Respimat 1 puff TID and albuterol HFA 1 puff q 4 hrs prnMonitor resp. status. Mixed anxi ety and depressive disorder 124005103 F41.8 Mood is stable, enjoys activities .Continue mirtazapin e 15 mg qhsMonitor moodPsych follows, last seen on 12/15 with no rec for med changes. Gastroesop hageal reflux disease without esophagitis 873984791 K21.9 No current sxs.Contin ue famotidine 20 mg qhsMonitor for sxs Hypothyroidism 97601985 E03.8 Last TSH in 08/2023 was sl. low at 0.17, no FT4 checked and no recheck done.Mandi nue levothyrox ine 75 mcg qd for nowRecheck TSH with FT4. Chronic pain 83693675 G8 9.29 As above.Also gets lidocaine patch to right knee daily.Elsy resendez [id number] CHASE CHE [address] [address] 01/30/2024 11:16:15 02/04/2024 12:17:43 Chronic obstructive pulmonary disease 34087514 J43.8 stableCont inue Advair 250/50 BID,contin ue Combivent Respimat 1 puff TIDcontinu e albuterol HFA 1 puff q 4 hrs prnMonitor resp. status. Mixed anxi ety and depressive disorder 200628224 F41.8 Continue mirtazapin e 15 mg qhsMonitor mood Gastroesop hageal reflux disease without esophagitis 079034618 K21.9 Continue famotidine 20 mg qhsMonitor for sxs Hypothyroidism 77000099 E03.8 Continue levothyrox ine 75 mcg qdmonitor labs prn Chronic pain 74951966 G8 9.29 As above.Also gets lidocaine patch to right knee daily.Elsy resendez [id number] CHASE CHE [address] [address] 03/12/2024 09:49:24 03/25/2024 14:50:38 Chronic obstructive pulmonary disease 19233973 J43.8 stableCont inue Advair 250/50 BID,contin ue Combivent Respimat 1 puff TIDcontinu e albuterol HFA 1 puff q 4 hrs prnMonitor resp. status. Mixed anxi ety and depressive disorder 709990325 F41.8 Continue mirtazapin e 15 mg qhsMonitor mood Gastroesop hageal reflux disease without esophagitis 068063690 K21.9 Continue famotidine 20 mg qhsMonitor for sxs Hypothyroidism 83045839 E03.8 Continue levothyrox ine 75 mcg qdmonitor labs prn Chronic pain 06864084 G8 9.29 As above.Also gets lidocaine patch to right knee daily.Elsy tor Vitamin deficiency 69304 002 E56.9 continue pyridoxine 100 mg daily ,thiamine 100 mg daily ,MVI daily Pain of knee region 1003 839534 M25.569 lidoderm patch right kneediclof enac gel bidtylenol 650 mg q6hr prn [id number] MD KAREN Pope [address] [place] [address] [place] [address] 04/17/2024 21:47:21 05/05/2024 07:56:21 Chronic obstructive pulmonary disease 28959773 J43.8 No recent exacerbati ons.Contin ue Advair 250/50 BID, Combivent Respimat 1 puff TID and albuterol HFA 1 puff q 4 hrs prnMonitor resp. status. Mixed anxi ety and depressive disorder 622989245 F41.8 Mood good tonight.Co ntinue mirtazapin e 15 mg qhsMonitor moodPsych follows, last seen on 03/23/24 with no rec for med changes. Gastroesop hageal reflux disease without esophagitis 944433755 K21.9 No current sxs.Contin ue famotidine 20 mg qhsMonitor for GI sxs Pain of le ft knee region 3710810014 66547 M25.562 Continues to do well with diclofenac gel 4 gms BID and APAP 650 mg q 6 hrs prn.Also uses lidocaine patch on right knee.Monit or sxs. Hypothyroidism 13096890 E03.8 Last TSH remains sl. low at 0.12, but with normal FT4.Contin ue levothyrox ine 75 mcg qd for nowRecheck TSH with FT4 in 3 months. Chronic pain 56510769 G8 9.29 As above.Elsy tor sxs [id number] [facility] [address] [place] [address] [place] [address] 5 05/14/2024 13:40:54 05/19/2024 13:06:16 Psoriasis 7098128 L40.9 Pruritic half dollar size, scaly red patch noted at base of hairline/ nap of neckwill add triamcinol one cream BID for 14 daysmonito r for resolution . [id number] [facility] [address] [place] [address] 05/19/2024 10:01:52 05/20/2024 14:50:20 Psoriasis 2269487 L40.9 Pruritic half dollar size, scaly red patch noted at base of hairline/ nap of neck- improvingc ontinue triamcinol one cream BID for 14 daysmonito r for resolution . [id number] [facility] CHE [address] [place] [address] 06/03/2024 13:59:00 06/05/2024 10:24:55 Chronic obstructive pulmonary disease 20673960 J43.8 stableCont inue Advair 250/50 BID,contin ue Combivent Respimat 1 puff TIDcontinu e albuterol HFA 1 puff q 4 hrs prnMonitor resp. status. Mixed anxi ety and depressive disorder 021352174 F41.8 mood has been stableCont inue mirtazapin e 15 mg qhspsych prn Gastroesop hageal reflux disease without esophagitis 587713866 K21.9 Continue famotidine 20 mg qhsMonitor for sxs Hypothyroidism 35354208 E03.8 Continue levothyrox ine 75 mcg qdmonitor labs prn Chronic pain 93359991 G8 9.29 As above.Also gets lidocaine patch to right knee daily.Elsy tor Vitamin deficiency 97618 002 E56.9 continue pyridoxine 100 mg daily ,thiamine 100 mg daily ,MVI daily Pain of knee region 1003 387471 M25.569 lidoderm patch right kneediclof enac gel bidtylenol 650 mg q6hr prn Psoriasis 5291285 L40.9 resolved [id number] [facility] CHE [address] [place] [address] 07/23/2024 10:20:41 07/28/2024 15:44:44 Chronic obstructive pulmonary disease [id number] J43.8 stableCont inue Advair 250/50 BID,contin ue Combivent Respimat 1 puff TIDcontinu e albuterol HFA 1 puff q 4 hrs prnMonitor resp. status. Mixed anxi ety and depressive disorder 156295348 F41.8 mood has been stableCont inue mirtazapin e 15 mg qhspsych prn Gastroesop hageal reflux disease without esophagitis 142781779 K21.9 Continue famotidine 20 mg qhsMonitor for sxs Hypothyroidism 66795910 E03.8 Continue levothyrox ine 75 mcg qdmonitor labs prn Chronic pain 29820605 G8 9.29 As above.Also gets lidocaine patch to right knee daily.Elsy tor Vitamin deficiency 47972 002 E56.9 continue pyridoxine 100 mg daily ,thiamine 100 mg daily ,MVI daily Pain of knee region 1003 401199 M25.569 stable.lid oderm patch right kneediclof enac gel bidtylenol 650 mg q6hr prn Psoriasis 5735584 L40.9 resolved [id number] [facility] [address] [address] 09/14/2024 12:31:36 09/22/2024 14:14:59 Chronic obstructive pulmonary disease [id number] J43.8 stableCont inue Advair 250/50 BID,contin ue Combivent Respimat 1 puff TIDcontinu e albuterol HFA 1 puff q 4 hrs prnMonitor resp. status. Mixed anxi ety and depressive disorder 504137465 F41.8 mood has been stableCont inue mirtazapin e 15 mg qhspsych prn Gastroesop hageal reflux disease without esophagitis 368645880 K21.9 Continue famotidine 20 mg qhsMonitor for sxs Hypothyroidism 13890727 E03.8 Continue levothyrox ine 75 mcg qdmonitor labs prn Chronic pain 90656639 G8 9.29 As above.Also gets lidocaine patch to right knee daily.Elsy tor Vitamin deficiency 73644 002 E56.9 continue pyridoxine 100 mg daily ,thiamine 100 mg daily ,MVI daily Pain of knee region 1003 360772 M25.569 stable.lid oderm patch right kneediclof enac gel bidtylenol 650 mg q6hr prn [id number] [facility] [address] [address] 10/12/2024 10:37:58 10/13/2024 13:55:23 COVID-19 [id number] U07.1 we discussed antiviral, she is not interested ,s she reports that she is feeling better todaywill add prn robitussin and oxygen as wellcontin ue supportive therapy( tylenol, oxygen, robitussin ordered.)i ncrease fluids encouraged discussed with nursing, update provider with changes. [id number] [facility] [address] [place] [address] [place] [address] 01/10/2025 10:55:53 01/14/2025 16:09:23 Chronic obstructive pulmonary disease [id number] J43.8 stableCont inue Advair 250/50 BID,contin ue Combivent Respimat 1 puff TIDcontinu e albuterol HFA 1 puff q 4 hrs prnMonitor resp. status. Mixed anxi ety and depressive disorder 160602741 F41.8 stableCont inue mirtazapin e 15 mg qhspsych prn Gastroesop hageal reflux disease without esophagitis 054369364 K21.9 stable/Con tinue famotidine 20 mg qhsMonitor for sxs Hypothyroidism 44608196 E03.8 Continue levothyrox ine 75 mcg qdmonitor labs prn Chronic pain 42538343 G8 9.29 stableAlso gets lidocaine patch to right knee daily.Elsy tor Vitamin deficiency 82203 002 E56.9 continue pyridoxine 100 mg daily ,thiamine 100 mg daily ,MVI daily Pain of knee region 1003 400569 M25.569 stable.lid oderm patch right kneediclof enac gel bidtylenol 650 mg q6hr prn [id number] MD KAREN Cooper [address] [place] [address] [place] [address] 04/05/2025 11:54:28 04/07/2025 10:01:04 Cellulitis of face 019475294 L03.394 [id number] left perioccula r cellultis developing over past 24 hoursconce rn for bacterial etiologyst art augmentin 875 mb bid x 10 dayprobiot ic bid x 2 weekscbc bmp orderedben adryl 25 mg q 6 prnmonitor for change [id number] [facility] [address] [place]OME[place] [address] 04/21/2025 05:52:11 04/22/2025 11:06:56 Acute abdominal pain [id number] R10.9 55391 reports times 1 week associated with nausea and vomiting and diarrhea.r eports flatulence , bloatinghy poactive BS notedLast BM was small a few days agowill get KUB, UA and labscontin ue zofran Chronic ob structive pulmonary disease 08879950 J43.8 stableCont inue Advair 250/50 BID,contin ue Combivent Respimat 1 puff TIDcontinu e albuterol HFA 1 puff q 4 hrs prnMonitor resp. status. Mixed anxi ety and depressive disorder 595771207 F41.8 stableCont inue mirtazapin e 15 mg qhspsych prn Gastroesop hageal reflux disease without esophagitis 818632205 K21.9 stable/Con tinue famotidine 20 mg qhsMonitor for sxs Hypothyroidism 04316481 E03.8 Continue levothyrox ine 75 mcg qdmonitor labs prn Chronic pain 59639352 G8 9.29 stableAlso gets lidocaine patch to right knee daily.Elsy tor Vitamin deficiency 12819 002 E56.9 continue pyridoxine 100 mg daily ,thiamine 100 mg daily ,MVI daily Pain of knee region 1003 972959 M25.569 stable.lid oderm patch right kneediclof enac gel bidtylenol 650 mg q6hr prn 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 noted ith residual rednesscom pleted acyclovir Health Concerns Section Related Observation LastModified by Organization Detai ls LastModified Time None Recorded Concern Status LastModified by Organization Details LastModified Time None Recorded Advance Directives Directive Y: DNI otherwise full code Payers Insurance Date Sequence Insurance Name Policy Number Policy Martino Covered Member ID Martino Member ID Guarantor Name 04/21/2025 2 [place] [facility] Brittanie Call [id number] Brittanie Call 04/21/2025 1 [place] B[place]: [employer] Brittanie Call [id number] Brittanie Call Notes Date Note Type Note [...] no concerns with elimination. [facility] [address], [address], [place], [address], [employer] 09/18/2024 18:11:40 10/12/2024 text/html ROS as noted [...] covid. reportable sx reviewed. [facility] [address] [facility], [address], [place], [address], [employer] 10/12/2024 15:53:56 01/10/2025 text/html ROS as noted [...] is no acute concerns. [facility] [address] , [address], [place], [address], [facility] Zoe Majeste 01/11/2025 10:18:20 04/05/2025 text/html Patient is an 84 yo female LTC resident seen for MD visit. Over the past 24 hours has developed left jose guadalupe orbital inflammation and erythema. Abhinav Gage MD [address] [facility], [address], [place], [address], [facility] [employer] 04/05/2025 12:00:01 04/21/2025 text/html ROS as noted [...] and or infectious causes. [facility] [address] [facility], [address], [place], [address], [facility] [employer] 04/21/2025 13:24:40 OBGyn Episode No OBEpisode recorded.
== END 2025-10-01 12:48 | disposition home or self-care (01) ==
LOC: HO.MMNH3L 12:47
PROVIDERS: Visit Provider Physician Assistant Medical
DX: R30.9 Painful micturition, unspecified (principal)
CPT/HCPCS: 81001; 87086; 87088; 87186